=== PATIENT | male | born 1950 | race African-American/Black ===

== ENCOUNTER 2016-12-11 12:26 | Emergency (ER) | payer MEDICARE, OTHER ==
--- NOTE | 2016-12-11 14:12 | ER Document Report ---
ED Neck/Back Problem - General Chief Complaint: Back Pain Stated Complaint: BACK PAIN Time seen by provider: 14:08 Mode of Arrival: Ambulatory Information source: Patient Notes: 66-year-old male presents to ED for severe back pain. He states he has a history of back pain for 4-5 years but the pain that he is having now is worse denies ever had. He states that he took oxycodone at 11 and ibuprofen at 6 AM and Tylenol and has not had any relief at all. He denies any loss of bowel or bladder control. Denies loss of sensation to his perineum. Has a history of kidney disease diabetes high blood pressure CHF. Sleep apnea and cholesterol. TRAVEL OUTSIDE OF THE [place] IN LAST 30 DAYS: No - HPI Patient complains to provider of: Pain, Lower back Onset: Other - See above note Onset: Chronic - With a acute phase it's much worse than normal Timing: Worse Quality of pain: Sharp, Stabbing, Throbbing Severity: Severe Pain Level: 5 Recent injury: No Associated symptoms: Radiation to leg, Lower back pain. denies: Constipation, Incontinence, Like prior neck/back pain - Much worse than normal, Motor loss, Sensory loss Exacerbated by: Movement of trunk, Sitting position, Other - Laying flat Relieved by: Nothing Similar symptoms previously: Yes Recently seen / treated by doctor: - not this bad - Related Data Allergies/Adverse Reactions: No Known Allergies Allergy (Verified 12/11/16 12:37) Home Medications: Current Home Medications Iron Ps Cmplx/Vit B12/FA [Ferrex 150 Forte Capsule] 1 each PO DAILY 12/11/16 [ History] Oxycodone HCl/Acetaminophen [Percocet 5-325 mg Tablet] 1 tab PO ASDIR PRN [History] Past Medical History - General Information source: Patient - Social History Smoking Status: Never Smoker Cigarette use (# per day): No Chew tobacco use (# tins/day): No Smoking Education Provided: No Frequency of alcohol use: None Drug Abuse: None Lives with: Family Family History: Reviewed & Not Pertinent Patient has suicidal ideation: No Patient has homicidal ideation: No - Past Medical History Cardiac Medical History: Reports: Hx Congestive Heart Failure, Hx Hypercholesterolemia, Hx Hypertension Pulmonary Medical History: Reports: Hx Bronchitis, Hx Sleep Apnea EENT Medical History: Reports: None Neurological Medical History: Reports: None Endocrine Medical History: Reports: Hx Diabetes Mellitus Type 2 Renal/ Medical History: Reports: Hx Renal Insufficiency Malignancy Medical History: Reports None GI Medical History: Reports: Hx Gastroesophageal Reflux Disease, Hx Colonoscopy , Hx Endoscopy Musculoskeltal Medical History: Reports Hx Arthritis - RIGHT knee per x rays, Reports Hx Musculoskeletal Deformity - Back pain for 4-5 years Skin Medical History: Reports None Psychiatric Medical History: Reports: None Infectious Medical History: Reports: None Past Surgical History: Reports: Hx Orthopedic Surgery - right rotator cuff - Immunizations Hx Diphtheria, Pertussis, Tetanus Vaccination: Yes Hx Pneumococcal Vaccination: 11/05/13 Review of Systems - Review of Systems Constitutional: No symptoms reported EENT: No symptoms reported Cardiovascular: No symptoms reported Respiratory: No symptoms reported Gastrointestinal: No symptoms reported Genitourinary: No symptoms reported Male Genitourinary: No symptoms reported Musculoskeletal: Back pain, Muscle pain Skin: No symptoms reported Hematologic/Lymphatic: No symptoms reported Neurological/Psychological: No symptoms reported Physical Exam - Vital signs Vitals: Temp Pulse Resp BP Pulse Ox 98 F 94 22 H 129/83 H 95 12/11/16 12:37 12/11/16 12:37 12/11/16 12:37 12/11/16 12:37 12/11/16 12:37 Interpretation: Normal - General General appearance: Appears well, Alert - HEENT Head: Normocephalic, Atraumatic Eyes: Normal Pupils: PERRL - Respiratory Respiratory status: No respiratory distress Chest status: Nontender Breath sounds: Normal Chest palpation: Normal - Cardiovascular Rhythm: Regular Heart sounds: Normal auscultation Murmur: No - Abdominal Inspection: Normal Distension: No distension Bowel sounds: Normal Tenderness: Nontender Organomegaly: No organomegaly - Back Back: Normal, Tender, CVA tenderness - Bilateral, Vertebra tenderness. No: Deformity/step-off, Scars, Scoliosis, Wounds - Extremities General upper extremity: Normal inspection, Nontender, Normal color, Normal ROM , Normal temperature General lower extremity: Normal inspection, Nontender, Normal color, Normal ROM , Normal temperature, Normal weight bearing. No: Susan's sign - Neurological Neuro grossly intact: Yes Cognition: Normal Orientation: AAOx4 Elen Coma Scale Eye Opening: Spontaneous [place] Coma Scale Verbal: Oriented [place] Coma Scale Motor: Obeys Commands [place] Coma Scale Total: 15 Speech: Normal Motor strength normal: LUE, RUE, LLE, RLE Sensory: Normal - Psychological Associated symptoms: Normal affect, Normal mood - Skin Skin Temperature: Warm Skin Moisture: Dry Skin Color: Normal Course - Re-evaluation Re-evalutation: 12/11/16 22:[address] Narayanan before doing a CT of the abdomen pelvis as well as blood work due to patient's prior history of CHF diabetes and Renal insufficiency. CT was negative. Labs and CT discussed with Dr. Narayanan. Micah Narayanan MD stated he should have Toradol and Decadron for his pain and discharged home to follow-up with his primary doctor as well as his kidney doctor is hard doctor in his diabetes doctor. - Vital Signs Vital signs: Temp Pulse Resp BP Pulse Ox 97.7 F 93 20 137/89 H 89 L 12/11/16 17:55 12/11/16 17:55 12/11/16 17:55 12/11/16 17:55 12/11/16 17:55 - Laboratory Result Diagrams: 12/11/16 14:48 12/11/16 14:48 Laboratory results interpreted by me: 12/11/16 12/11/16 12/11/16 14:11 14:48 14:48 Hgb 11.8 L Hct 37.8 L MCH 24.9 L MCHC 31.2 L RDW 18.1 H Seg Neutrophils % 82.2 H Lymphocytes % 10.6 L Sodium 147.7 H BUN 30 H Creatinine 1.75 H Est GFR ( Amer) 47 L Est GFR (Non-Af Amer) 39 L Glucose 146 H Total Protein 6.2 L Urine Protein 100 H Urine Ascorbic Acid 20 H - Diagnostic Test Radiology reviewed: Image reviewed, Reports reviewed Discharge - Discharge Clinical Impression: Renal insufficiency Back pain Qualifiers: Back pain location: low back pain Chronicity: chronic Back pain laterality: bilateral Sciatica presence: with sciatica Sciatica laterality: bilateral sciatica Qualified Code(s): M54.42 - Lumbago with sciatica, left side Condition: Stable Disposition: HOME, SELF-CARE Instructions: Stretching Exercises for the Back ([facility]) Additional Instructions: LOW BACK PAIN: Three out of every four people will have an episode of disabling back pain during their lifetime. Most commonly the pain is due to straining of the muscles and ligaments in the low back. Usual treatment includes: (1) Rest on a firm surface. Avoid lying on your stomach. (2) Ice pack the painful area. After a few days, gentle heat may be used intermittently to relax the area, or ice packs can be continued. (3) Medication may be needed -- muscle relaxers and antiinflammatory medicines are commonly used. (4) As the back improves, exercises are prescribed to strengthen the back and abdominal muscles. Your doctor will advise you on the proper care for your back at each stage in your recovery. You may be better in a few days -- or healing may take several weeks. If new symptoms of a "herniated disc" (radiation of pain, numbness, or tingling down the back of the leg or weakness in the leg) occur, you should be re-examined. Further testing may be necessary. ICE PACKS: Apply ice packs frequently against the painful area. Many different schedules are recommended, such as "20 minutes on, 20 minutes off" or "one hour ice, two hours rest." If you need to work, you may need to go longer between ice treatments. You should plan to have the area ice packed AT LEAST one fourth of the time. The ice should be applied over the wrap, tape, or splint, or over a layer of cloth -- not directly against the skin. Some ice bags have a built-in cloth and can be put directly on the skin. WARM PACKS: After approximately two days, apply gentle heat (such as a heating pad or hot water bottle) for about 20 to 30 minutes about every two hours -- at least four times daily. Warmth and elevation will help you make a more rapid recovery , and will ease the pain considerably. Do not use HOT heat, and never apply heat for longer than 30 minutes. The continuous heat can invisibly damage skin and muscles -- even when no burn is seen on the surface. Damaged muscles can make you MORE sore. Toradol Injection You have been given an injection of ketorolac tromethamine (Toradol). This is an excellent, safe drug for pain control. It also has potent antiinflammatory action. You should have significant pain relief within about one hour. Toradol is not addicting and is non-sedating. It does not interfere with driving or work. Call or return if you develop itching, hives, shortness of breath, or rash. STEROID MEDICATION: You have been given an injection of medicine of the cortisone/steroid class. This medication is used to control inflammation or allergy. It is often continued as a pill for a short period of time, until the acute process subsides. There are usually no side effects from short-term use of cortisone-like medications. Some persons feel an increased sense of well-being and are not sleepy at bedtime. Long-term use of cortisone medications is best avoided, unless required for a severe condition. If your condition does not remit, or relapses after the course of corticosteroid medication, you should consult your physician. FOLLOW-UP CARE: If you have been referred to a physician for follow-up care, call the physician s office for an appointment as you were instructed or within the next two days. If you experience worsening or a significant change in your symptoms, notify the physician immediately or return to the Emergency Department at any time for re-evaluation. I discussed your labs and CT results with you and your . I have given you a written report of each of these. Please take these to your follow-up visits with your heart doctor, your kidney doctor, your primary doctor, and Dr. Hoang. please schedule a appointment with your primary doctor tomorrow. Forms: Elevated Blood Pressure Referrals: NIRALI SERRANO MD [ACTIVE STAFF] - Follow up as needed
[2016-12-11 14:34] LABS: APPEARANCE,URINE CLEAR; BILIRUBIN,URINE NEGATIVE (NEGATIVE); GLUCOSE, URINE NEGATIVE (NEGATIVE); KETONES,URINE NEGATIVE (NEGATIVE); LEUKOCYTE ESTERASE,URINE NEGATIVE (NEGATIVE); NITRITE,URINE NEGATIVE (NEGATIVE); PROTEIN,URINE 100 mg/dL (NEGATIVE); UROBILINOGEN,URINE NEGATIVE mg/dL (<2.0)
[2016-12-11 15:03] LABS: ABSOLUTE BASOPHILS # (AUTO) 0.1 10^3/uL (0.0-0.2); ABSOLUTE LYMPHOCYTES (AUTO) 0.9 10^3/uL (0.5-4.7); ABSOLUTE MONOCYTES (AUTO) 0.5 10^3/uL (0.1-1.4); ABSOLUTE NEUT (AUTO) 7.1 10^3/uL (1.7-8.2); BASOPHILS % (AUTO) 0.8 % (0-2); EOSINOPHILS % (AUTO) 0.4 % (0-6); HEMATOCRIT 37.8 % (37.9-51.0); HEMOGLOBIN 11.8 g/dL (13.5-17.0); HGB HCT DIFFERENCE -2.4; LYMPHOCYTES % (AUTO) 10.6 % (13-45); MEAN CORPUSCULAR HEMOGLOBIN 24.9 pg (27.0-33.4); MEAN CORPUSCULAR HGB CONC 31.2 g/dL (32.0-36.0); MEAN CORPUSCULAR VOLUME 80 fl (80-97); RED BLOOD COUNT 4.74 10^6/uL (4.35-5.55); RED CELL DISTRIBUTION WIDTH 18.1 % (11.5-14.0); SEGMENTED NEUTROPHILS % (AUTO) 82.2 % (42-78); WHITE BLOOD COUNT 8.7 10^3/uL (4.0-10.5)
[2016-12-11 15:21] LABS: ALANINE AMINOTRANSFERASE 42 U/L (21-72); ALBUMIN 3.8 g/dL (3.5-5.0); ALKALINE PHOSPHATASE 63 U/L (38-126); ANION GAP 12 (5-19); ASPARTATE AMINO TRANSFERASE 18 U/L (17-59); BILIRUBIN,DIRECT 0.2 mg/dL (0.0-0.4); BILIRUBIN,TOTAL 0.5 mg/dL (0.2-1.3); BLOOD UREA NITROGEN 30 mg/dL (7-20); CALCIUM 10.1 mg/dL (8.4-10.2); CARBON DIOXIDE 30 mmol/L (22-30); CHLORIDE 106 mmol/L (98-107); CREATININE RESULT 1.75 mg/dL (0.52-1.25); GLUCOSE 146 mg/dL (75-110); POTASSIUM 4.7 mmol/L (3.6-5.0); SODIUM 147.7 mmol/L (137-145); TOTAL PROTEIN 6.2 g/dL (6.3-8.2)
[2016-12-11] MEDS ORDERED: OXYCODONE-ACETAMINOPHEN 5-325 MG TABLET PO ONE (15:36)
[2016-12-11] MEDS ORDERED: KETOROLAC TROMETHAMINE INJ/PF 30 MG/1 ML SDV IM ONE (17:18)
[2016-12-11] MEDS ORDERED: DEXAMETHASONE SOD PHOS INJ 10 MG/1 ML VIAL IM ONE (17:18)
[2016-12-11 18:03] VITALS: BP 137/89
== END 2016-12-11 18:03 | disposition home or self-care (01) ==
LOC: ER 12:26
DX: G89.29 Other chronic pain (principal); M54.42 Lumbago with sciatica, left side; N28.9 Disorder of kidney and ureter, unspecified; I10 Essential (primary) hypertension; E11.9 Type 2 diabetes mellitus without complications; Z86.79 Personal history of other diseases of the circulatory system
CPT/HCPCS: 99284; 96372; 36415; 85025; 80053; 81001; 74176; J1885; A9270; J1100

== ENCOUNTER 2016-12-29 06:37 | Inpatient (IN) | payer MEDICARE, OTHER ==
[2016-12-29] MEDS ORDERED: NORMAL SALINE 1000 ML 200 ML IV ONE (07:07)
--- NOTE | 2016-12-29 07:16 | ER Document Report ---
ED General - General Information source: Patient TRAVEL OUTSIDE OF THE [place] IN LAST 30 DAYS: No - HPI Patient complains to provider of: Difficulty Breathing Onset: This morning Onset/Duration: Sudden, Persistent Associated symptoms: Other - Lightheaded, dry mouth, increased thirst <NINOSKAOUSMANE - Last Filed: 12/29/16 08:45> <CLIFFORD SALAZAR - Last Filed: 12/29/16 16:03> - General Chief Complaint: Respiratory Distress Stated Complaint: DIFFICULTY BREATHING Notes: Patient is a 66-year-old male presenting to the emergency department concerned of difficulty breathing onset this morning. Patient states that he was wearing his CPAP when he noticed he was having trouble breathing, so she took off his machine and cleaned it out, but the difficulty breathing persisted. Patient also notes that he is having increased thirst, dry mouth, and he became lightheaded. Patient's primary care physician is Dr. Cruz and his train controller is Dr. Dutton. (OUSMANE XIAO) This 66-year-old male patient with a history of cardiomyopathy, CHF, hyperlipidemia, hypertension, diabetes, and chronic low back pain reports he woke up this morning about 5:30 feeling like he couldn't breathe and his mouth feeling extremely dry. He does wear seat Pap at night and had it on. He reports he last urinated about 2:00 in the morning. He states he has been drinking and normal amount of fluids recently. His initial blood pressure was 84/62. His hemoglobin is 12.4, it was 11.8 most recently. His BUN is 36 and creatinine 2.13, these are also much higher than his baseline. His blood sugar is 379 he is not acidotic. His pulse ox is 100% on room air despite him claiming he has trouble breathing. He also has pain in his low back, but he reports this is a chronic thing that he takes Tylenol for. Palpating low back reproduces and exacerbates the low back pain. He did have a CT scan abdomen and pelvis to 3 weeks ago which did not show any aneurysms. Patient was initially gently hydrated with small boluses, but his blood pressure began dropping as low as the mid 50s systolic. This was changed to IV boluses. He became quite nauseous during this time, possibly due to lobe blood pressure and low perfusion pressure. After Zofran and into his third liter of fluid, his blood pressure is coming back up and he is feeling somewhat better. Lives at drip was ordered, but is being held at this time depending on how his pressure response to additional fluids. Due to his history of cardiomyopathy and congestive heart failure were concerned about overly hydrating the patient. (CLIFFORD SALAZAR) - Related Data Allergies/Adverse Reactions: No Known Allergies Allergy (Verified 12/29/16 06:40) Home Medications: Current Home Medications Sitagliptin Phos/Metformin HCl [Janumet 50-1,000 Mg Tablet] 1 each PO DAILY [History] Past Medical History - General Information source: Patient, [facility] Records - Social History Smoking Status: Never Smoker Family History: Reviewed & Not Pertinent Patient has suicidal ideation: No Patient has homicidal ideation: No - Past Medical History Cardiac Medical History: Reports: Hx Congestive Heart Failure, Hx Hypercholesterolemia, Hx Hypertension Pulmonary Medical History: Reports: Hx Bronchitis, Hx Sleep Apnea Endocrine Medical History: Reports: Hx Diabetes Mellitus Type 2 Renal/ Medical History: Reports: Hx Renal Insufficiency GI Medical History: Reports: Hx Gastroesophageal Reflux Disease, Hx Colonoscopy , Hx Endoscopy Musculoskeltal Medical History: Reports Hx Arthritis - RIGHT knee per x rays, Reports Hx Musculoskeletal Deformity - Back pain for 4-5 years Infectious Medical History: Past Surgical History: Reports: Hx Orthopedic Surgery - right rotator cuff - Immunizations Hx Diphtheria, Pertussis, Tetanus Vaccination: Yes Hx Pneumococcal Vaccination: 11/05/13 <OUSMANE XIAO - Last Filed: 12/29/16 08:45> Review of Systems - Review of Systems Constitutional: No symptoms reported EENT: See HPI, Other - Dry mouth, increased thirst Cardiovascular: See HPI, Lightheaded Respiratory: See HPI, Other - Difficulty breathing Gastrointestinal: No symptoms reported Genitourinary: No symptoms reported Male Genitourinary: No symptoms reported Musculoskeletal: No symptoms reported Skin: No symptoms reported Hematologic/Lymphatic: No symptoms reported Neurological/Psychological: No symptoms reported -: Yes All other systems reviewed and negative <OUSMANE XIAO - Last Filed: 12/29/16 08:45> Physical Exam - Vital signs Interpretation: Hypotensive - General General appearance: Alert - HEENT Head: Normocephalic, Atraumatic Eyes: Normal Pupils: PERRL Mucous membranes: Dry - Respiratory Respiratory status: No respiratory distress Chest status: Nontender Breath sounds: Normal Chest palpation: Normal - Cardiovascular Rhythm: Regular Heart sounds: Normal auscultation Murmur: No - Abdominal Inspection: Normal Distension: No distension Bowel sounds: Normal Tenderness: Nontender Organomegaly: No organomegaly - Back Back: Normal, Nontender - Extremities General upper extremity: Normal inspection, Nontender General lower extremity: Normal inspection, Nontender - Neurological Neuro grossly intact: Yes Cognition: Normal Orientation: AAOx4 Elen Coma Scale Eye Opening: Spontaneous [place] Coma Scale Verbal: Oriented [place] Coma Scale Motor: Obeys Commands [place] Coma Scale Total: 15 Speech: Normal - Psychological Associated symptoms: Normal affect, Normal mood - Skin Skin Temperature: Warm Skin Moisture: Dry Skin Color: Normal <OUSMANE XIAO - Last Filed: 12/29/16 08:45> Course - Laboratory Result Diagrams: 12/29/16 07:00 12/29/16 07:00 <OUSMANE XIAO - Last Filed: 12/29/16 08:45> - Laboratory Result Diagrams: 12/29/16 07:00 12/29/16 07:00 - Diagnostic Test Radiology reviewed: Image reviewed, Reports reviewed - Patient's chest x-ray is unremarkable showing chronic cardiomegaly without pulmonary vascular congestion today. CT scan shows a chronic left occipital arachnoid cyst with no acute changes. VQ scan of the lungs is normal. - EKG Interpretation by Me EKG shows normal: Sinus rhythm, [place], QRS Complexes. abnormal: Intervals - Borderline prolonged QT interval, ST-T Waves - Nonspecific diffuse T abnormalities Rate: Normal - 66 Rhythm: NSR [place]/QRS: LAHB/LAFB P Waves: LAE - Consults Dr. Valladares Time consulted: 15:30 Consulted provider: will come to ER <CLIFFORD SALAZAR - Last Filed: 12/29/16 16:03> - Re-evaluation Re-evalutation: 12/29/16 09:39 Patient's blood pressure never really responded to the normal saline 3 L. His pulse ox remained 100% on nasal O2. He is now complaining of a headache that started about 9:30 AM, the area of the headache is the left posterior parietal region, it is not tender to palpate. He is stating he does not feel right but he cannot specify what is wrong. 12/29/16 16:02 Patient was put on Levophed for several hours which got his blood pressure into the 1:15 range. After he returned from a negative VQ scan, Levophed was turned off and then he was reevaluated for admission. (CLIFFORD SALAZAR) - Vital Signs Vital signs: Temp Pulse Resp BP Pulse Ox 97.5 F 71 8 L 126/79 H 100 12/29/16 06:40 12/29/16 06:40 12/29/16 15:21 12/29/16 15:21 12/29/16 15:20 - Laboratory Laboratory results interpreted by me: 12/29/16 12/29/16 12/29/16 07:00 07:00 07:00 Hgb 12.4 L MCH 25.1 L MCHC 31.3 L RDW 17.2 H Plt Count 140 L D-Dimer 1.86 H Potassium 5.4 H BUN 36 H Creatinine 2.13 H Est GFR ( Amer) 38 L Est GFR (Non-Af Amer) 31 L Glucose 379 H Creatine Kinase 33 L Total Protein 6.0 L Urine Protein Urine Glucose (UA) Urine Ascorbic Acid 12/29/16 14:40 Hgb MCH MCHC RDW Plt Count D-Dimer Potassium BUN Creatinine Est GFR ( Amer) Est GFR (Non-Af Amer) Glucose Creatine Kinase Total Protein Urine Protein 100 H Urine Glucose (UA) 50 H Urine Ascorbic Acid 40 H Critical Care Note - Critical Care Note Total time excluding time spent on procedures (mins): 65 <CLIFFORD SALAZAR - Last Filed: 12/29/16 16:03> Discharge <OUSMANE XIAO - Last Filed: 12/29/16 08:45> - Discharge Admitting Provider: Hospitalist Unit Admitted: IMCU <CLIFFORD SALAZAR - Last Filed: 12/29/16 16:03> - Discharge Clinical Impression: Dehydration, Renal insufficiency Dyspnea Qualifiers: Dyspnea type: unspecified Qualified Code(s): R06.00 - Dyspnea, unspecified Hypotension Qualifiers: Hypotension type: unspecified hypotension type Qualified Code(s): I95.9 - Hypotension, unspecified Headache Qualifiers: Headache type: unspecified Headache chronicity pattern: acute headache Intractability: not intractable Qualified Code(s): R51 - Headache Condition: Good Referrals: RUFINA CRUZ MD [Primary Care Provider] - Follow up as needed Scribe Attestation: 12/29/16 12:36 I personally performed the services described in the documentation, reviewed and edited the documentation which was dictated to the scribe in my presence, and it accurately records my words and actions. (CLIFFORD SALAZAR) Scribe Documentation - Scribe Written by Scribe:: Ousmane Xiao 12/29/2016 0711 acting as scribe for :: Dell <OUSMANE XIAO - Last Filed: 12/29/16 08:45>
[2016-12-29 07:24] LABS: ABSOLUTE BASOPHILS # (AUTO) 0.1 10^3/uL (0.0-0.2); ABSOLUTE EOSINOPHILS # (AUTO) 0.1 10^3/uL (0.0-0.6); ABSOLUTE LYMPHOCYTES (AUTO) 1.5 10^3/uL (0.5-4.7); ABSOLUTE MONOCYTES (AUTO) 0.6 10^3/uL (0.1-1.4); BASOPHILS % (AUTO) 0.8 % (0-2); EOSINOPHILS % (AUTO) 0.8 % (0-6); HEMATOCRIT 39.6 % (37.9-51.0); HEMOGLOBIN 12.4 g/dL (13.5-17.0); HGB HCT DIFFERENCE -2.4; MEAN CORPUSCULAR HEMOGLOBIN 25.1 pg (27.0-33.4); MEAN CORPUSCULAR HGB CONC 31.3 g/dL (32.0-36.0); MEAN CORPUSCULAR VOLUME 80 fl (80-97); MONOCYTES % (AUTO) 8.7 % (3-13); RED BLOOD COUNT 4.95 10^6/uL (4.35-5.55); RED CELL DISTRIBUTION WIDTH 17.2 % (11.5-14.0); SEGMENTED NEUTROPHILS % (AUTO) 68.7 % (42-78); WHITE BLOOD COUNT 7.4 10^3/uL (4.0-10.5)
[2016-12-29 07:43] LABS: ALANINE AMINOTRANSFERASE 55 U/L (21-72); ALBUMIN 3.7 g/dL (3.5-5.0); ALKALINE PHOSPHATASE 72 U/L (38-126); ANION GAP 11 (5-19); ASPARTATE AMINO TRANSFERASE 25 U/L (17-59); BILIRUBIN,DIRECT 0.4 mg/dL (0.0-0.4); BILIRUBIN,TOTAL 0.8 mg/dL (0.2-1.3); BLOOD UREA NITROGEN 36 mg/dL (7-20); CALCIUM 9.7 mg/dL (8.4-10.2); CARBON DIOXIDE 29 mmol/L (22-30); CHLORIDE 100 mmol/L (98-107); CREATINE KINASE 33 U/L (55-170); CREATININE RESULT 2.13 mg/dL (0.52-1.25); GLUCOSE 379 mg/dL (75-110); MAGNESIUM 2.1 mg/dL (1.6-2.3); POTASSIUM 5.4 mmol/L (3.6-5.0); SODIUM 140.4 mmol/L (137-145)
[2016-12-29] MEDS ORDERED: ACETAMINOPHEN 325 MG TABLET PO ONE (07:43)
[2016-12-29 07:55] LABS: CREATINE KINASE MB 0.68 ng/mL (<4.55)
[2016-12-29 07:56] LABS: TROPONIN I 0.064 ng/mL
[2016-12-29] MEDS ORDERED: NORMAL SALINE 1000 ML 1,000 ML IV ONE (08:17)
[2016-12-29] MEDS ORDERED: ONDANSETRON HCL INJ/PF 4 MG/2 ML SDV IV ONE (08:26)
[2016-12-29] MEDS ORDERED: ONDANSETRON HCL INJ/PF 4 MG/2 ML SDV ONE (08:27)
[2016-12-29] MEDS ORDERED: INSULIN REG, HUMAN 100 UNIT/ML 3 ML VIAL (PYX) IV ONE (08:47)
[2016-12-29] MEDS ORDERED: NOREPINEPHRINE BITARTRATE INJ/PF 4 MG/4 ML SDV IV ONE (09:11)
[2016-12-29] MEDS: DEXTROSE 5%-WATER 250 ML with NOREPINEPHRINE BITARTRATE 4 MG IV PRN ×4 (09:35→14:50)
[2016-12-29] MEDS ORDERED: MORPHINE SULFATE 10 MG/ML INJ IV ONE ×2 (09:53→14:48)
--- NOTE | 2016-12-29 10:45 | EKG REPORT ---
SEVERITY:- ABNORMAL ECG - SINUS RHYTHM PROBABLE LEFT ATRIAL ABNORMALITY LEFT ANTERIOR FASCICULAR BLOCK BORDERLINE R WAVE PROGRESSION, ANTERIOR LEADS NONSPECIFIC T ABNORMALITIES, DIFFUSE LEADS BORDERLINE PROLONGED QT INTERVAL : Confirmed by: Dionicio Mckeon 29-Dec-2016 10:44:32
[2016-12-29 15:21] LABS: APPEARANCE,URINE CLOUDY; BILIRUBIN,URINE NEGATIVE (NEGATIVE); GLUCOSE, URINE 50 mg/dL (NEGATIVE); KETONES,URINE NEGATIVE (NEGATIVE); LEUKOCYTE ESTERASE,URINE NEGATIVE (NEGATIVE); NITRITE,URINE NEGATIVE (NEGATIVE); PROTEIN,URINE 100 mg/dL (NEGATIVE); UROBILINOGEN,URINE NEGATIVE mg/dL (<2.0)
[2016-12-29] MEDS ORDERED: OXYCODONE-ACETAMINOPHEN 5-325 MG TABLET PO PRN (15:56)
[2016-12-29] MEDS ORDERED: (PENDING PHARMACY ID) (Tizanidine Hcl [Zanaflex] 4 MG) PO PRN (15:56)
[2016-12-29] MEDS ORDERED: ONDANSETRON HCL INJ/PF 4 MG/2 ML SDV IV PRN (16:00)
[2016-12-29] MEDS ORDERED: ACETAMINOPHEN 325 MG TABLET PO PRN (16:00)
[2016-12-29] MEDS ORDERED: DEXTROSE 50%-WATER 25 GM/50 ML DISP.SYRIN IV PRN ×2 (16:32)
[2016-12-29] MEDS ORDERED: DEXTROSE 40% GEL 15 GM TUBE PO PRN ×2 (16:32)
[2016-12-29] MEDS ORDERED: GLUCAGON,HUMAN RECOMB 1 MG INJ IM PRN (16:32)
--- NOTE | 2016-12-29 16:46 | PDOC H&P ---
History of Present Illness Admission Date/PCP: RUFINA LOWRY MD Patient complains of: Shortness of breath History of Present Illness: BAM MORRISON is a 66 year old male, history of chronic congestive heart failure, systolic dysfunction, last ejection fraction of 20% about a year ago, 37% of MUGA scan, process to the hospital with shortness of breath upon waking up early this morning. The patient was in bed, wearing his CPAP, subsequently couldn't breathe. He denies chest pain at all. He does not remember whether he has nasal congestion at that time, nor any chest congestion. No chills or fever, no sore throat, cough. In the emergency room, blood pressure reportedly low, chest x-ray noted infiltrate, creatinine elevated, patient started on intravenous fluid boluses, and blood pressure remained low, he was placed on Levophed, blood pressure normalized. Patient was referred for admission. The patient's shortness of breath resolved. Past Medical History Cardiac Medical History: Reports: Congestive Heart Failure, Hyperlipidema, Hypertension Pulmonary Medical History: Reports: Bronchitis, Sleep Apnea Endocrine Medical History: Reports: Diabetes Mellitus Type 2 GI Medical History: Reports: Gastroesophageal Reflux Disease Musculoskeltal Medical History: Reports: Arthritis - RIGHT knee per x rays Hematology: Reports: Anemia Past Surgical History Past Surgical History: Reports: Orthopedic Surgery - right rotator cuff Social History Smoking Status: Never Smoker Frequency of Alcohol Use: None Hx Recreational Drug Use: No Drugs: None Hx Prescription Drug Abuse: No Family History Family History: DM, Hypertension Parental Family History Reviewed: Yes Children Family History Reviewed: Yes Sibling(s) Family History Reviewed.: Yes Medication/Allergy Home Medications: Atorvastatin Calcium [Lipitor 80 mg Tablet] 40 mg PO QHS 12/17/11 Cyanocobalamin/Folic Acid [B-12 1,000 Mcg Sub Tablet] 1 each SL DAILY #30 tab.subl 11/18/15 Furosemide [Lasix 40 mg Tablet] 40 mg PO BID #60 tablet 11/18/15 Losartan Potassium [Cozaar 25 mg Tablet] 25 mg PO Q12 #60 tablet 11/18/15 Cholecalciferol (Vitamin D3) [Vitamin D3] 1,000 unit PO BID 07/25/16 Glimepiride [Amaryl 4 mg Tablet] 2 mg PO DAILY PRN 07/25/16 Tizanidine HCl [Zanaflex] 4 mg PO TID PRN 07/25/16 Diltiazem HCl [Cardizem Cd 120 mg Capsule] 1 cap.sr PO DAILY #30 cap.sr Iron Ps Cmplx/Vit B12/FA [Ferrex 150 Forte Capsule] 1 each PO DAILY 12/11/16 Oxycodone HCl/Acetaminophen [Percocet 5-325 mg Tablet] 1 tab PO ASDIR PRN Sitagliptin Phos/Metformin HCl [Janumet 50-1,000 Mg Tablet] 1 each PO DAILY Allergies/Adverse Reactions: No Known Allergies Allergy (Verified 12/29/16 06:40) Review of Systems Constitutional: ABSENT: chills, fever(s), headache(s), weight gain, weight loss Eyes: ABSENT: visual disturbances Ears: ABSENT: hearing changes Nose, Mouth, and Throat: ABSENT: mouth pain, sore throat Cardiovascular: PRESENT: dyspnea on exertion - Chronic, edema - But chronic and not increasing, orthropnea - Intermittent. ABSENT: chest pain, palpitations Respiratory: PRESENT: cough - Occasional, dyspnea. ABSENT: hemoptysis, sputum Gastrointestinal: ABSENT: abdominal pain, constipation, diarrhea, hematemesis, hematochezia, melena, nausea, vomiting Genitourinary: ABSENT: dysuria, hematuria Musculoskeletal: ABSENT: joint swelling Integumentary: ABSENT: pruritus, rash, wounds Neurological: ABSENT: abnormal gait, abnormal speech, confusion, dizziness, focal weakness, syncope Psychiatric: ABSENT: anxiety, depression, homidical ideation, suicidal ideation Endocrine: ABSENT: cold intolerance, heat intolerance, polydipsia, polyuria Hematologic/Lymphatic: ABSENT: easy bleeding, easy bruising Physical Exam Vital Signs: Temp Pulse Resp BP Pulse Ox 97.5 F 71 8 L 126/79 H 100 12/29/16 06:40 12/29/16 06:40 12/29/16 15:21 12/29/16 15:21 12/29/16 15:20 Intake & Output 12/28/16 12/29/16 12/30/16 06:59 06:59 06:59 Weight 91.3 kg General appearance: PRESENT: no acute distress, cooperative, other - Overweight Head exam: PRESENT: atraumatic, normocephalic Eye exam: PRESENT: conjunctiva pink, EOMI, PERRLA. ABSENT: scleral icterus Ear exam: PRESENT: normal external ear exam Mouth exam: PRESENT: moist, neck supple, tongue midline Throat exam: ABSENT: post pharyngeal erythema, tonsillar erythema Neck exam: PRESENT: JVD. ABSENT: carotid bruit, lymphadenopathy, thyromegaly Respiratory exam: PRESENT: clear to auscultation shital - Anteriorly, rales - Posteriorly in the lower lung hernandez, unlabored. ABSENT: rhonchi, wheezes Cardiovascular exam: PRESENT: RRR, +S1, +S2. ABSENT: diastolic murmur, rubs, systolic murmur Pulses: PRESENT: normal dorsalis pedis pul Vascular exam: PRESENT: normal capillary refill GI/Abdominal exam: PRESENT: normal bowel sounds, soft. ABSENT: distended, guarding, mass, organolmegaly, rebound, tenderness Rectal exam: PRESENT: deferred Extremities exam: PRESENT: full ROM, +1 edema. ABSENT: calf tenderness, clubbing Neurological exam: PRESENT: alert, awake, oriented to person, oriented to place , oriented to time, oriented to situation Psychiatric exam: PRESENT: appropriate affect, normal mood. ABSENT: homicidal ideation, suicidal ideation Skin exam: PRESENT: dry, intact, warm. ABSENT: cyanosis, rash Results Laboratory Results: 12/29/16 07:00 12/29/16 07:00 12/29/16 12/29/16 12/29/16 07:00 07:00 14:40 WBC 7.4 RBC 4.95 Hgb 12.4 L Hct 39.6 MCV 80 MCH 25.1 L MCHC 31.3 L RDW 17.2 H Plt Count 140 L Seg Neutrophils % 68.7 Lymphocytes % 21.0 Monocytes % 8.7 Eosinophils % 0.8 Basophils % 0.8 Absolute Neutrophils 5.0 Absolute Lymphocytes 1.5 Absolute Monocytes 0.6 Absolute Eosinophils 0.1 Absolute Basophils 0.1 Sodium 140.4 Potassium 5.4 H Chloride 100 Carbon Dioxide 29 Anion Gap 11 BUN 36 H Creatinine 2.13 H Est GFR ( Amer) 38 L Est GFR (Non-Af Amer) 31 L Glucose 379 H Calcium 9.7 Magnesium 2.1 Total Bilirubin 0.8 AST 25 ALT 55 Alkaline Phosphatase 72 Total Protein 6.0 L Albumin 3.7 Urine Color MENA Urine Appearance CLOUDY Urine pH 5.0 Ur Specific [place] 1.020 Urine Protein 100 H Urine Glucose (UA) 50 H Urine Ketones NEGATIVE Urine Blood NEGATIVE Urine Nitrite NEGATIVE Ur Leukocyte Esterase NEGATIVE Urine WBC (Auto) 4 Urine RBC (Auto) 1 12/29/16 12/29/16 07:00 07:00 Creatine Kinase 33 L CK-MB (CK-2) 0.68 Troponin I 0.064 Impressions: Chest X-Ray 12/29/16 07:08 IMPRESSION: HEART ENLARGED WITHOUT FAILURE. NO OTHER SIGNIFICANT RADIOGRAPHIC FINDING IN THE CHEST. Head CT 12/29/16 09:55 IMPRESSION: Arachnoid cyst. No acute abnormality in the brain. Lung Scan-[facility] 12/29/16 11:42 IMPRESSION: NORMAL VENTILATION-PERFUSION LUNG SCAN. NEGATIVE FOR PULMONARY EMBOLI. Assessment & Plan - Diagnosis (1) Hypotension Qualifiers: Hypotension type: unspecified hypotension type Qualified Code(s): I95.9 - Hypotension, unspecified Is this a current diagnosis for this admission?: Yes (2) Paroxysmal nocturnal dyspnea Is this a current diagnosis for this admission?: Yes (3) Hyperkalemia Is this a current diagnosis for this admission?: Yes (4) Acute renal failure superimposed on stage 3 chronic kidney disease Is this a current diagnosis for this admission?: Yes (5) Chronic congestive heart failure Qualifiers: Congestive heart failure type: systolic Qualified Code(s): I50.22 - Chronic systolic (congestive) heart failure Is this a current diagnosis for this admission?: Yes (6) Diabetes mellitus type 2 in obese Is this a current diagnosis for this admission?: Yes (7) Anemia of chronic disease Is this a current diagnosis for this admission?: Yes (8) Obstructive sleep apnea Is this a current diagnosis for this admission?: Yes (9) Cardiomyopathy Qualifiers: Cardiomyopathy type: unspecified Qualified Code(s): I42.9 - Cardiomyopathy, unspecified Is this a current diagnosis for this admission?: Yes (10) Pulmonary hypertension Is this a current diagnosis for this admission?: Yes - Time Time Spent: 30 to 50 Minutes - Plan Summary Plan Summary: Patient will be admitted to observation. We will discontinue Levophed. Give intravenous Lasix. Recheck potassium. Decrease the dose of the ARB. We will consult cardiology. Obtain cardiac enzymes 3. Repeat echocardiogram to check ejection fraction. Recheck creatinine in the morning. Discontinue metformin. Put the patient on sliding scale insulin at this time.
[2016-12-29 17:12] LABS: POTASSIUM 5.3 mmol/L (3.6-5.0)
[2016-12-29] MEDS ORDERED: TIZANIDINE HCL 4 MG TABLET PO PRN (17:30)
[2016-12-29] MEDS ORDERED: SODIUM POLYSTYRENE SULFONATE 15 GM/60 ML PO ONE (18:30)
[2016-12-29] MEDS ORDERED: FUROSEMIDE INJ/PF 40 MG/4 ML SDV IV ONE (18:30)
[2016-12-29 20:13] LABS: CREATINE KINASE MB 1.16 ng/mL (<4.55)
[2016-12-29 20:18] LABS: TROPONIN I 0.181 ng/mL
--- NOTE | 2016-12-29 20:43 | PDOC CONSULTATION ---
Consultation Consult Date: 12/29/16 Attending physician:: JOSEY RAMOS Consult reason:: Congestive heart failure History of Present Illness Admission Date/PCP: 12/29/16 16:00 RUFINA LOWRY MD Patient complains of: Shortness of breath History of Present Illness: BAM MORRISON is a 66 year old male, history of chronic congestive heart failure, systolic dysfunction, last ejection fraction of 20% about a year ago, 37% of MUGA scan, process to the hospital with shortness of breath upon waking up early this morning. The patient was in bed, wearing his CPAP, subsequently couldn't breathe. He denies chest pain at all. He does not remember whether he has nasal congestion at that time, nor any chest congestion. No chills or fever, no sore throat, cough. In the emergency room, blood pressure reportedly low, chest x-ray noted infiltrate, creatinine elevated, patient started on intravenous fluid boluses, and blood pressure remained low, he was placed on Levophed, blood pressure normalized. Patient was referred for admission. The patient's shortness of breath resolved. Past Medical History Cardiac Medical History: Reports: Congestive Heart Failure, Hyperlipidema, Hypertension Pulmonary Medical History: Reports: Bronchitis, Sleep Apnea Endocrine Medical History: Reports: Diabetes Mellitus Type 2 GI Medical History: Reports: Gastroesophageal Reflux Disease Musculoskeltal Medical History: Reports: Arthritis - RIGHT knee per x rays Hematology: Reports: Anemia Past Surgical History Past Surgical History: Reports: Orthopedic Surgery - right rotator cuff Social History Smoking Status: Never Smoker Frequency of Alcohol Use: None Hx Recreational Drug Use: No Drugs: None Hx Prescription Drug Abuse: No - Advance Directive Resuscitation Status: Full Code Family History Family History: Reviewed & Not Pertinent, DM, Hypertension Parental Family History Reviewed: Yes Children Family History Reviewed: Yes Sibling(s) Family History Reviewed.: Yes Medication/Allergy Home Medications: Atorvastatin Calcium [Lipitor 80 mg Tablet] 40 mg PO QHS 12/17/11 Cyanocobalamin/Folic Acid [B-12 1,000 Mcg Sub Tablet] 1 each SL DAILY #30 tab.subl 11/18/15 Furosemide [Lasix 40 mg Tablet] 40 mg PO BID #60 tablet 11/18/15 Losartan Potassium [Cozaar 25 mg Tablet] 25 mg PO Q12 #60 tablet 11/18/15 Cholecalciferol (Vitamin D3) [Vitamin D3] 1,000 unit PO BID 07/25/16 Glimepiride [Amaryl 4 mg Tablet] 2 mg PO DAILY PRN 07/25/16 Tizanidine HCl [Zanaflex] 4 mg PO TID PRN 07/25/16 Diltiazem HCl [Cardizem Cd 120 mg Capsule] 1 cap.sr PO DAILY #30 cap.sr Iron Ps Cmplx/Vit B12/FA [Ferrex 150 Forte Capsule] 1 each PO DAILY 12/11/16 Oxycodone HCl/Acetaminophen [Percocet 5-325 mg Tablet] 1 tab PO ASDIR PRN Sitagliptin Phos/Metformin HCl [Janumet 50-1,000 Mg Tablet] 1 each PO DAILY Allergies/Adverse Reactions: No Known Allergies Allergy (Verified 12/29/16 06:40) Physical Exam Vital Signs: Temp Pulse Resp BP Pulse Ox 97.6 F 86 22 H 106/73 100 12/29/16 19:32 12/29/16 19:32 12/29/16 19:32 12/29/16 19:32 12/29/16 19:32 Exam: GENERAL: well-nourished and in no acute distress. Alert and oriented x3 HEAD: Atraumatic, normocephalic. EYES: Pupils equal round and reactive to light, extraocular movements intact, sclera anicteric, conjunctiva are normal. ENT: TMs normal, nares patent, oropharynx clear without exudates. Moist mucous membranes. No oral ulcerations or bleeding gums noted NECK: supple without lymphadenopathy. Trachea is central. No cervical or axillary lymphadenopathy noted. Carotids are 2+, JVD 14 CM WITH CV WAVES LUNGS: Respiration seems nonlabored, no significant accessory muscle action noted. Bibasal a fine crackles noted. Slight right basal dullness noted. CHEST: Palpation of the chest wall shows no significant chest wall tenderness. No other significant abnormalities noted. HEART: [place] [employer], No PSH, 1/6 [place] aortic area, 1/6 gaines systolic murmur mitral area, no rubs, S3 noted. ABDOMEN: Soft, no significant tenderness appreciated, normoactive bowel sounds. No guarding, no rebound. No rigidity noted . No masses appreciated. EXTREMITIES: Pedal pulses are 1-2+, no calf tenderness noted. No clubbing or cyanosis.1+ pedal edema noted NEUROLOGICAL: Focused neurological exam showed no significant neurologic deficit. Normal speech, no focal weakness appreciated. PSYCH: Normal mood, normal affect. Judgment and insight within normal limits. SKIN: No significant ecchymosis, rash, ulcerations or signs of pruritus noted. MUSCULOSKELETAL EXAM: No significant joint swelling noted. Results Laboratory Results: 12/29/16 16:44 12/29/16 12/29/16 16:44 16:44 Potassium 5.3 H Free T4 1.22 12/29/16 12/29/16 16:44 19:41 Creatine Kinase 47 L CK-MB (CK-2) 1.16 Troponin I 0.181 EKG Comments: Sinus rhythm, minor nonspecific T-wave inversions noted. Impressions: Chest X-Ray 12/29/16 07:08 IMPRESSION: HEART ENLARGED WITHOUT FAILURE. NO OTHER SIGNIFICANT RADIOGRAPHIC FINDING IN THE CHEST. Head CT 12/29/16 09:55 IMPRESSION: Arachnoid cyst. No acute abnormality in the brain. Lung Scan-[facility] 12/29/16 11:42 IMPRESSION: NORMAL VENTILATION-PERFUSION LUNG SCAN. NEGATIVE FOR PULMONARY EMBOLI. Assessment & Plan - Diagnosis (1) Acute on chronic congestive heart failure Qualifiers: Congestive heart failure type: systolic Qualified Code(s): I50.23 - Acute on chronic systolic (congestive) heart failure Is this a current diagnosis for this admission?: Yes (2) Cardiomyopathy Qualifiers: Cardiomyopathy type: unspecified Qualified Code(s): I42.9 - Cardiomyopathy, unspecified Is this a current diagnosis for this admission?: Yes (3) Diabetes mellitus type 2 in obese Is this a current diagnosis for this admission?: Yes (4) Hypotension Qualifiers: Hypotension type: unspecified hypotension type Qualified Code(s): I95.9 - Hypotension, unspecified Is this a current diagnosis for this admission?: Yes (5) Obstructive sleep apnea Is this a current diagnosis for this admission?: Yes (6) Peripheral edema Is this a current diagnosis for this admission?: Yes - Notes Notes: Acute on chronic systolic heart failure: Patient has sudden onset shortness of breath. Pulmonary embolism ruled out. Most likely related to acute CHF, possibly could be precipitated by dysrhythmia or volume overload. Patient to be monitored. Agree with IV Lasix. Patient has significant renal dysfunction which decreases our option. Recommend hydralazine nitrate combination. Cardiomyopathy: Previous echocardiogram shows significantly reduced LVEF at 20% . Patient should be considered for prophylactic defibrillator therapy. Possibly Patient EF has improved. Will repeat a 2-D echo. If echo shows depressed LVEF, will consider referral for defibrillator placement. Hypotension: Exact etiology not clear but could be related to severe systolic dysfunction. Recommend Midodrin therapy if needed. Obstructive sleep apnea: Patient to continue with nightly CPAP/bilevel therapy. Peripheral ana continue diuretic therapy. This is most likely related to CHF. Positive troponin I: Patient has normal CK-MB, no significant EKG changes and is free of any chest pain during this admission therefore most likely related to acute CHF. Patient does not give any history of prior heart catheterization. Will try obtain previous records. - Time Time Spent: 30 to 50 Minutes - CODE STATUS was discussed, patient remains full code. Surrogate decision-maker patient's . Multiple medical problems were addressed.More than 50% of the time spent coordinating care, discussing management plans with involved caregivers. Management plans discussed with involved personnels. Medical decision making was of moderate to high complexity , patient's has multiple severe comorbidities.
[2016-12-29] MEDS: OXYCODONE-ACETAMINOPHEN 5-325 MG TABLET PO PRN (21:17)
[2016-12-29] MEDS: ATORVASTATIN CALCIUM 40 MG TABLET PO SCH (21:17)
[2016-12-29] MEDS: RANOLAZINE 500 MG TAB.SR.12H PO SCH (21:17)
[2016-12-29] MEDS: HEPARIN SOD (PORCINE) 5,000 UNIT/ML 1 ML SYRINGE SUBCUT SCH (21:19)
--- NOTE | 2016-12-29 21:37 | EKG REPORT ---
SEVERITY:- ABNORMAL ECG - SINUS RHYTHM PROBABLE LEFT ATRIAL ABNORMALITY LEFT ANTERIOR FASCICULAR BLOCK BORDERLINE R WAVE PROGRESSION, ANTERIOR LEADS : Confirmed by: Dionicio Mckeon 29-Dec-2016 21:37:06
--- NOTE | 2016-12-29 21:37 | EKG REPORT ---
SEVERITY:- ABNORMAL ECG - SINUS RHYTHM PROBABLE LEFT ATRIAL ABNORMALITY LEFT ANTERIOR FASCICULAR BLOCK BORDERLINE R WAVE PROGRESSION, ANTERIOR LEADS NONSPECIFIC T ABNORMALITIES, LATERAL LEADS : Confirmed by: Dionicio Mckeon 29-Dec-2016 21:35:55
[2016-12-29] MEDS ORDERED: LOSARTAN POTASSIUM 25 MG TABLET PO SCH (22:00)
[2016-12-29] MEDS ORDERED: ATORVASTATIN CALCIUM 80 MG TABLET PO SCH (22:00)
[2016-12-29] MEDS ORDERED: FUROSEMIDE INJ/PF 40 MG/4 ML SDV IV SCH (22:00)
[2016-12-29] MEDS: INSULIN REG, HUMAN 100 UNIT/ML 3 ML VIAL (PYX) SUBCUT PRN (23:25)
[2016-12-30 05:18] LABS: CALCIUM 8.6 mg/dL (8.4-10.2); CARBON DIOXIDE 24 mmol/L (22-30); MAGNESIUM 2.1 mg/dL (1.6-2.3)
[2016-12-30 05:35] LABS: ANION GAP 10 (5-19); BLOOD UREA NITROGEN 38 mg/dL (7-20); CHLORIDE 108 mmol/L (98-107); CREATININE RESULT 1.99 mg/dL (0.52-1.25); GLUCOSE 201 mg/dL (75-110); SODIUM 142.4 mmol/L (137-145)
[2016-12-30 05:39] LABS: POTASSIUM 4.1 mmol/L (3.6-5.0)
[2016-12-30] MEDS: LANSOPRAZOLE 30 MG TAB.RAP.DR PO SCH (05:52)
[2016-12-30] MEDS: HEPARIN SOD (PORCINE) 5,000 UNIT/ML 1 ML SYRINGE SUBCUT SCH ×3 (05:53→22:46)
[2016-12-30] MEDS: OXYCODONE-ACETAMINOPHEN 5-325 MG TABLET PO PRN (07:52)
[2016-12-30] MEDS: INSULIN REG, HUMAN 100 UNIT/ML 3 ML VIAL (PYX) SUBCUT PRN ×4 (08:11→22:45)
--- NOTE | 2016-12-30 08:33 | Physician Advisory Note ---
Physician Advisor ProgressNote .: [facility] I have reviewed the medical record for this patient. Physician Advisor Statement: Nice documentation of ARF & chronic systolic HF. Nice documentation by sample maker hand of CHF specifics. Possible documentation opportunities if attending agrees: 1. " shock" (cardiogenic? hypovolemic?) 2. "Anemia of Chronic Kidney Dz with Chronic Kidney Dz stage 3-4 " [need to specify the etiology of the ACD] 3. ? - "Acute on Chronic systolic CHF" 4. ? - "Acute ischemic heart dz", or "acute NSTEMI", or "unstable angina" or " angina due to CAD" [dyspnea/nausea as anginal equivalent? EKG/trop I changes significant enough?] 5. "Medical Necessity" - if this Medicare pt requires a 2nd MN of hospital care for clinical reasons, as expected by this reviewer, please document reasons /concerns & consider change to Inpt status as per Medicare's 2MN Rule. May use any points below under "status" with which attending agrees. As always, if concerned about any unstable VS or abnormal labs, please comment on them - what bad things they might indicate, why they concern you - & note what doing about them. Please also document each day the potential clinical problems you are concerned could occur if pt not kept in hospital for tx at this time. 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 Sats WNL initially. WBC 7.4, Hgb 12.4, plts 140, K5.4, Cr 2.13 ( worse than before), CXR w/CMG but no vasc congestion seen. D-dimer 1.86, V/Q ok , trop 0.064 initially (then 0.181, 0.175), BNP 7620. ED dr gave repeated IVF boluses, then Levophed gtt, after which SOB resolved. Attending ordered d/c Levophed, IV Lasix now & daily, serial cardiac enzymes, ECHO, Cardiol consult, tele, orthostatics, daily wts, 2L O2 w/continuous pulse ox monitoring, re-ck labs, decreased dose ARB, d/c'd metformin, continued diltiazem. [employer] added Ranexa. Status: Pt arrived w/shock requiring pressor tx after 3L IVF insufficient to restore adequate perfusing pressure. This wasn't just a routine CHF exacerbation that had a good chance of recovery after overnight tx. This pt was clinically hypoperfusing, yet also clinically in acute CHF - tx to help support BP can worsen the CHF, & tx of the CHF could worsen the BP. Also, the tx of the acute CHF can worsen the ARF. Needs ECHO eval of EF, adjustments of meds w/close monitoring of response. Pt already w/dyspnea, and episodes of hypoxemia the 1st PM which could worsen acutely with fluid shifts of above tx.s. Pt orthostatic already by HR on first night, with continued IV diuretic use planned putting pt at risk for worsening of orthostasis with risk for falls/ fx.s. For this, pt may need midodrine tx, although response to that will need close monitoring for exacerbation of underlying HTN & for effects on CHF with such decreased EF. Pt may need prompt AICD placement depending on how low the EF is now. WIth the abnormal trop I's & EKGs, attending may be concerned for acute ischemia of the heart related to the severely low BPs initially. Pt remaining tachycardic on 1st PM, & borderline tachycardic this AM so far, with tachypnea & continued hypotension (though not shock anymore) this AM. Ranexa has been added, to treat angina, but will need close monitoring initially given its risks for causing worsening hypotension, bradycardia, renal failure, and potential interactions with diltiazem. Not stabilized for safe d/c yet today. If attending agrees that continued tx & monitoring in inpatient hospital setting medically reasonable & necessary to protect pt's health, safety, & medical condition, pt appropriate for Inpt status. Thanks for your help with documentation accuracy/specificity improvement! Yomaira Barbosa MD [facility] Physician Advisor, Fellow of Hospital Medicine
[2016-12-30] MEDS: FUROSEMIDE INJ/PF 40 MG/4 ML SDV IV SCH (09:30)
[2016-12-30] MEDS: ASPIRIN 325 MG TABLET, ENT COATED PO SCH (09:31)
[2016-12-30] MEDS: DOCUSATE SODIUM 100 MG CAPSULE PO SCH (09:32)
[2016-12-30] MEDS ORDERED: DILTIAZEM HCL 120 MG CAP.SR.24H PO SCH (10:00)
[2016-12-30] MEDS: LOSARTAN POTASSIUM 25 MG TABLET PO SCH (10:58)
--- NOTE | 2016-12-30 11:10 | XCELERA REPORT ---
[address] [address] Transthoracic Echocardiogram Report Name: BAM MORRISON Age: 66 yrs Gender: Male : 1950 Patient Status: Inpatient Patient Location: [id number]\319\S\A Study Date: 12/30/2016 08:17 AM Height: 71 in Weight: 201 lb BSA: 2.1 m2 Procedure: A complete two-dimensional transthoracic echocardiogram was performed (2D, M-mode, spectral and color flow Doppler). The study was technically difficult with many images being suboptimal in quality. Reason For Study: CHF Ordering Physician: JOSEY RAMOS Performed By: Ester Chicas Interpretation Summary The Ejection Fraction estimate is 20-25% Left ventricular systolic function is severely reduced. LV diastolic function could not be adequately assessed. There is normal left ventricular wall thickness. The left ventricle is mildly dilated. There is severe global hypokinesis of the left ventricle. The right atrium is borderline dilated. The left atrium is borderline dilated. Interarterial septum not well visualized and not well dopplered. Cannot comment on ASD/PFO presence. There is no mitral valve stenosis. There is a mild amount of mitral regurgitation There is no aortic valve stenosis No aortic regurgitation is present. There is a mild amount of tricuspid regurgitation There is moderate pulmonary hypertension by echo Right ventricular systolic pressure is estimated to be elevated at 50- 60mmHg. The aortic root is not well visualized but is probably normal size. The inferior vena cava appeared normal and decreased < 50% with respiration (RAP 10-15 mmHg) There is no pericardial effusion. MMode/2D Measurements \T\ Calculations RVDd: 3.1 cm LVIDd: 6.1 cm FS: 10.5 % Ao root diam: 2.4 cm IVSd: 0.67 cm LVIDs: 5.5 cm EDV(Teich): 188.6 ml LVPWd: 0.74 cmESV(Teich): 146.3 mlAo root area: 4.7 cm2 EF(Teich): 22.4 % LA dimension: 3.7 cm LVOT diam: 2.0 cm LVOT area: 3.2 cm2 Doppler Measurements \T\ Calculations MV E max ellie: MV P1/2t max ellie: Ao V2 max: LV V1 max P.9 cm/sec 87.9 cm/sec 83.1 cm/sec 1.2 mmHg MV P1/2t: 65.3 msec Ao max PG: LV V1 max: MVA(P1/2t): 3.4 cm2 2.8 mmHg 53.8 cm/sec MV dec slope: VY(V,D): 2.1 cm2 393.8 cm/sec2 PA V2 max: PI end-d ellie: TR max ellie: 51.8 cm/sec 215.8 cm/sec 331.2 cm/sec PA max PG: TR max P.1 mmHg 43.9 mmHg Left Ventricle The left ventricle is mildly dilated. There is normal left ventricular wall thickness. Left ventricular systolic function is severely reduced. The Ejection Fraction estimate is 20-25%. LV diastolic function could not be adequately assessed. There is severe global hypokinesis of the left ventricle. Right Ventricle The right ventricle is mildly dilated. There is normal right ventricular wall thickness. The right ventricular systolic function is mild to moderately reduced. Atria The right atrium is borderline dilated. The left atrium is borderline dilated. Interarterial septum not well visualized and not well dopplered. Cannot comment on ASD/PFO presence. Mitral Valve The mitral valve leaflets are sclerotic, but show no functional abnormalities. There is no mitral valve stenosis. There is a mild amount of mitral regurgitation. Aortic Valve The aortic valve is grossly normal. There is no aortic valve stenosis. No aortic regurgitation is present. Tricuspid Valve The tricuspid valve is not well visualized secondary to technical limitations. There is no tricuspid stenosis. There is a mild amount of tricuspid regurgitation. There is moderate pulmonary hypertension by echo. Right ventricular systolic pressure is estimated to be elevated at 50- 60mmHg. Pulmonic Valve The pulmonic valve is not well visualized. Great Vessels The aortic root is not well visualized but is probably normal size. The inferior vena cava appeared normal and decreased < 50% with respiration (RAP 10-15 mmHg). Effusions There is no pericardial effusion. : JOSEY RAMOS > Dionicio Mckeon
--- NOTE | 2016-12-30 11:19 | EKG REPORT ---
SEVERITY:- ABNORMAL ECG - SINUS RHYTHM PROBABLE LEFT ATRIAL ABNORMALITY LEFT ANTERIOR FASCICULAR BLOCK BORDERLINE R WAVE PROGRESSION, ANTERIOR LEADS NONSPECIFIC T ABNORMALITIES, LATERAL LEADS : Confirmed by: Dionicio Mckeon 30-Dec-2016 11:18:52
[2016-12-30] MEDS: DILTIAZEM HCL 120 MG CAP.SR.24H PO SCH (14:04)
[2016-12-30] MEDS: RANOLAZINE 500 MG TAB.SR.12H PO SCH ×2 (14:04→22:44)
--- NOTE | 2016-12-30 14:54 | PDOC TRANSFER SUMMARY ---
General Admission Date/PCP: 12/30/16 13:38 RUFINA LOWRY MD Transfer Date: 12/30/16 Accepting Facility: [facility] Accepting Physician: Dr. Nito Reid Resuscitation Status: Full Code - Transfer Diagnosis (1) Non-STEMI (non-ST elevated myocardial infarction) Is this a current diagnosis for this admission?: YesDiagnosis Summary: The patient did not have any chest pain but did presented with acute shortness of breath possibly an anginal equivalent. His cardiac enzymes showed an increase in troponin consistent with an acute non-STEMI. He has known congestive heart failure with an ejection fraction of 20% on echocardiogram. He reports that he is never had a cardiac catheterization previously. This may be related to his chronic renal failure although he is uncertain. (2) Acute on chronic congestive heart failure Is this a current diagnosis for this admission?: YesDiagnosis Summary: Patient has acute on chronic systolic congestive heart failure. The patient presented with acute onset of shortness of breath. This has improved with IV Lasix. The patient had a repeat echocardiogram showed an ejection fraction of 20%. It is recommended the patient be evaluated for an AICD. I discussed the case with [facility] who graciously agrees to accept the patient in transfer. (3) Acute renal failure superimposed on stage 3 chronic kidney disease Is this a current diagnosis for this admission?: YesDiagnosis Summary: We'll continue to monitor closely as we are giving IV diuretics for treating his congestive heart failure. (4) Anemia of chronic disease Is this a current diagnosis for this admission?: Yes (5) Diabetes mellitus type 2 in obese Is this a current diagnosis for this admission?: Yes (6) Obstructive sleep apnea Is this a current diagnosis for this admission?: Yes (7) Pulmonary hypertension Is this a current diagnosis for this admission?: Yes - Transfer Medications Home Medications: Atorvastatin Calcium [Lipitor 80 mg Tablet] 40 mg PO QHS 12/17/11 Cholecalciferol (Vitamin D3) [Vitamin D3] 1,000 unit PO BID 07/25/16 Glimepiride [Amaryl 4 mg Tablet] 2 mg PO DAILY PRN 07/25/16 Tizanidine HCl [Zanaflex] 4 mg PO TID PRN 07/25/16 Iron Ps Cmplx/Vit B12/FA [Ferrex 150 Forte Capsule] 1 each PO DAILY 12/11/16 Oxycodone HCl/Acetaminophen [Percocet 5-325 mg Tablet] 1 tab PO ASDIR PRN Sitagliptin Phos/Metformin HCl [Janumet 50-1,000 Mg Tablet] 1 each PO DAILY Transfer Medications: Current Medications Acetaminophen (Tylenol 325 Mg Tablet) 650 mg PO Q4HP PRN PRN Reason: pain or temp greater than 101F Stop: 01/28/17 15:59 Aspirin (Ecotrin 325 Mg Ec Tablet) 325 mg PO DAILY BEE Stop: 01/29/17 09:59 Last Admin: 12/30/16 09:31 Dose: 325 mg Atorvastatin Calcium (Lipitor 40 Mg Tablet) 40 mg PO QHS BEE Stop: 01/28/17 21:59 Last Admin: 12/29/16 21:17 Dose: 40 mg Dextrose (Dextrose Inj 50% Syringe (25 Gm/50 Ml)) 12.5 gm IV PRN PRN; Protocol PRN Reason: FOR BG 50-69 IN ALERT PATIENT Stop: 01/28/17 16:31 Dextrose (Dextrose Inj 50% Syringe (25 Gm/50 Ml)) 25 gm IV PRN PRN PRN Reason: Protocol Stop: 01/28/17 16:31 Diltiazem HCl (Cardizem Cd 120 Mg Capsule) 120 mg PO DAILY BEE Stop: 01/29/17 09:59 Last Admin: 12/30/16 14:04 Dose: Not Given Docusate Sodium (Colace 100 Mg Capsule) 100 mg PO DAILY BEE Stop: 01/29/17 09:59 Last Admin: 12/30/16 09:32 Dose: 100 mg Furosemide (Lasix Inj/Pf 40 Mg/4 Ml Sdv) 40 mg IV DAILY BEE Stop: 01/29/17 09:59 Last Admin: 12/30/16 09:30 Dose: 40 mg Glucagon (Glucagen Inj 1 Mg Vial) 1 mg IM PRN PRN; Protocol PRN Reason: Evaluate for BG < 70 Stop: 01/28/17 16:31 Glucose (Glutose 40% Gel 15 Gm Tube) 15 gm PO PRN PRN; Protocol PRN Reason: FOR BG 50-69 IN ALERT PATIENT Stop: 01/28/17 16:31 Glucose (Glutose 40% Gel 15 Gm Tube) 30 gm PO PRN PRN; Protocol PRN Reason: FOR BG < 50 IN ALERT PATIENT Stop: 01/28/17 16:31 Heparin Sodium (Porcine) (Heparin Inj 5,000 Units/Ml 1 Ml Syringe) 5,000 unit SUBCUT Q8 BEE Stop: 01/28/17 21:59 Last Admin: 12/30/16 14:06 Dose: 5,000 unit Insulin Human Regular (Humulin R (Pyxis) Insulin 100 Unit/Ml 3ml) 0 - 12 unit SUBCUT ACHSP PRN PRN Reason: Protocol Stop: 01/28/17 16:31 Last Admin: 12/30/16 11:04 Dose: 6 unit Lansoprazole (Prevacid 30 Mg Odt Tablet) 30 mg PO Q6AM BEE Stop: 01/29/17 05:59 Last Admin: 12/30/16 05:52 Dose: 30 mg Losartan Potassium (Cozaar 25 Mg Tablet) 25 mg PO DAILY BEE Stop: 01/29/17 09:59 Last Admin: 12/30/16 10:58 Dose: 25 mg Metoprolol Tartrate (Lopressor 25 Mg Tablet) 12.5 mg PO Q12 BEE Stop: 01/29/17 21:59 Ondansetron HCl (Zofran Inj/Pf 4 Mg/2 Ml Sdv) 4 mg IV Q6HP PRN PRN Reason: nausea/vomiting Stop: 01/28/17 15:59 Oxycodone/Acetaminophen (Percocet 5-325 Mg Tablet) 1 tab PO BIDP PRN PRN Reason: FOR BACK PAIN Stop: 01/05/17 17:29 Last Admin: 12/30/16 07:52 Dose: 1 tab Ranolazine (Ranexa 500 Mg Tab.Sr) 500 mg PO Q12 BEE Stop: 01/28/17 21:59 Last Admin: 12/30/16 14:04 Dose: Not Given Sodium Chloride (Saline Flush 2.5 Ml Monoject Prefil Syrin) 2.5 ml IV Q8 BEE Stop: 01/28/17 21:59 Last Admin: 12/30/16 14:07 Dose: 2.5 ml Tizanidine HCl (Zanaflex 4 Mg Tablet) 4 mg PO TIDP PRN Stop: 01/28/17 17:29 Last Admin: 12/29/16 23:09 Dose: 4 mg - Allergies Allergies/Adverse Reactions: No Known Allergies Allergy (Verified 12/29/16 06:40) - Diet/Activity Discharge Diet: Cardiac, Diabetic Hospital Course Hospital Course: Patient presented with acute onset shortness of breath. Patient does have a history of chronic systolic congestive heart failure. She felt that he had acute on chronic systolic congestive heart failure. He did not however have any chest pain. Serial cardiac enzymes were drawn and it did show an increase consistent with an acute non-STEMI. Patient was seen by cardiology. Cardiology recommended the patient be evaluated for defibrillator placement given his ejection fraction 20%. The patient has been at [facility] previously and requested to go to [facility]. Dr. Nito Reid of cardiology has agreed to accept the patient in transfer. I asked the patient if he has had a heart catheterization in the past and he is not aware that he's ever had a heart catheterization. He has problems with chronic renal failure this may be the reason that he has not had a cardiac catheter previously. Other medical problems were stable during this hospitalization. Physical Exam Vital Signs: Temp Pulse Resp BP Pulse Ox 97.8 F 86 21 H 105/77 98 12/30/16 11:50 12/30/16 14:00 12/30/16 11:50 12/30/16 11:50 12/30/16 12:00 General appearance: PRESENT: no acute distress Eye exam: PRESENT: conjunctiva pink. ABSENT: scleral icterus Ear exam: PRESENT: normal external ear exam Mouth exam: PRESENT: moist, tongue midline Neck exam: ABSENT: JVD Respiratory exam: PRESENT: rales - Few bibasilar rales. ABSENT: rhonchi, wheezes Cardiovascular exam: PRESENT: RRR. ABSENT: diastolic murmur, rubs, systolic murmur GI/Abdominal exam: PRESENT: normal bowel sounds, soft. ABSENT: distended, guarding, mass, organolmegaly, rebound, tenderness Extremities exam: PRESENT: pedal edema - Trace pedal edema.. ABSENT: calf tenderness, clubbing Neurological exam: PRESENT: alert, awake, oriented to person, oriented to place , oriented to time, oriented to situation, CN II-XII grossly intact. ABSENT: motor sensory deficit Psychiatric exam: PRESENT: appropriate affect Skin exam: PRESENT: dry, intact, warm. ABSENT: cyanosis, rash Results Impressions: Chest X-Ray 12/29/16 07:08 IMPRESSION: HEART ENLARGED WITHOUT FAILURE. NO OTHER SIGNIFICANT RADIOGRAPHIC FINDING IN THE CHEST. Head CT 12/29/16 09:55 IMPRESSION: Arachnoid cyst. No acute abnormality in the brain. Lung Scan-VQ NM 12/29/16 11:42 IMPRESSION: NORMAL VENTILATION-PERFUSION LUNG SCAN. NEGATIVE FOR PULMONARY EMBOLI. Plan Discharge Plan: Transfer to [facility] when a bed becomes available. Dr. Nito Reid is the accepting physician. Time Spent: Greater than 30 Minutes
--- NOTE | 2016-12-30 20:29 | PDOC PROGRESS REPORT ---
Subjective Progress Note for:: 12/30/16 Subjective:: Patient seems to be doing better with gradual improvement. Pt is denying any chest arm or neck discomfort. Patient denying any PND, orthopnea. Patient denied any sustained palpitations, dizziness, syncope, near syncope. Patient denying any fever chills. Patient denying any other significant discomfort. Patient is maintaining sinus rhythm. Patient had a 2-D echocardiogram which showed severely depressed LVEF. Patient's troponin I are trending down. Review of systems: Rest review of systems negative. Medications: Medications have been reviewed. Physical Exam Vital Signs: Temp Pulse Resp BP Pulse Ox 97.3 F 87 18 105/67 97 12/30/16 15:52 12/30/16 15:52 12/30/16 15:52 12/30/16 15:52 12/30/16 16:00 Pulse Oximeter Continuous Start: 12/29/16 16: 02 Freq: RTQ4 Status: Active Document 12/30/16 16:00 JDR (Rec: 12/30/16 17:33 JDR [id number]) Pulse Oximetry Assessment Oxygen Saturation (92-100) 97 Oxygen Flow Rate (L/min) 2 Oxygen Delivery Method Nasal Cannula Equipment Usage Equipment in Use Continuous SpO2 Machine # 14 Intake & Output 12/29/16 12/30/16 12/31/16 06:59 06:59 06:59 Intake Total 750 Balance 750 Exam: GENERAL: well-nourished and in no acute distress. Alert and oriented x3 HEAD: Atraumatic, normocephalic. EYES: Pupils equal round and reactive to light, extraocular movements intact, sclera anicteric, conjunctiva are normal. ENT: TMs normal, nares patent, oropharynx clear without exudates. Moist mucous membranes. No oral ulcerations or bleeding gums noted NECK: supple without lymphadenopathy. Trachea is central. No cervical or axillary lymphadenopathy noted. Carotids are 2+, JVD WNL LUNGS: Respiration seems nonlabored, no significant accessory muscle action noted. Breath sounds clear to auscultation bilaterally and equal noted. No wheezes rales or rhonchi noted. No significant dullness noted on percussion. CHEST: Palpation of the chest wall shows no significant chest wall tenderness. No other significant abnormalities noted. HEART: [place] [employer], No PSH, 1/6 [place] aortic area, 1/6 gaines systolic murmur mitral area, no rubs, no gallops. ABDOMEN: Soft, no significant tenderness appreciated, normoactive bowel sounds. No guarding, no rebound. No rigidity noted . No masses appreciated. EXTREMITIES: Pedal pulses are 1-2+, no calf tenderness noted. No clubbing or cyanosis.1+ pedal edema noted NEUROLOGICAL: Focused neurological exam showed no significant neurologic deficit. Normal speech, no focal weakness appreciated. PSYCH: Normal mood, normal affect. Judgment and insight within normal limits. SKIN: No significant ecchymosis, rash, ulcerations or signs of pruritus noted. MUSCULOSKELETAL EXAM: No significant joint swelling noted. Results Impressions: Chest X-Ray 12/29/16 07:08 IMPRESSION: HEART ENLARGED WITHOUT FAILURE. NO OTHER SIGNIFICANT RADIOGRAPHIC FINDING IN THE CHEST. Head CT 12/29/16 09:55 IMPRESSION: Arachnoid cyst. No acute abnormality in the brain. Lung Scan-VQ NM 12/29/16 11:42 IMPRESSION: NORMAL VENTILATION-PERFUSION LUNG SCAN. NEGATIVE FOR PULMONARY EMBOLI. Assessment & Plan - Diagnosis (1) Acute on chronic congestive heart failure Qualifiers: Congestive heart failure type: systolic Qualified Code(s): I50.23 - Acute on chronic systolic (congestive) heart failure Is this a current diagnosis for this admission?: Yes (2) Cardiomyopathy Qualifiers: Cardiomyopathy type: unspecified Qualified Code(s): I42.9 - Cardiomyopathy, unspecified Is this a current diagnosis for this admission?: Yes (3) Diabetes mellitus type 2 in obese Is this a current diagnosis for this admission?: Yes (4) Hypotension Qualifiers: Hypotension type: unspecified hypotension type Qualified Code(s): I95.9 - Hypotension, unspecified Is this a current diagnosis for this admission?: Yes (5) Obstructive sleep apnea Is this a current diagnosis for this admission?: Yes (6) Peripheral edema Is this a current diagnosis for this admission?: Yes (7) Elevated troponin I level Is this a current diagnosis for this admission?: Yes - Notes Notes: Acute on chronic CHF: Patient is improved symptomatically. Exact precipitating cause not clear but possibly arrhythmia induced. Possibly fluid overload. Doubt ischemia but in the differential diagnosis. Troponin I elevated: Most likely related to CHF in the setting of chronic kidney disease. Do not feel patient has acute coronary syndrome. Cardiomyopathy: Patient has severe dilated cardiomyopathy. Discussed prophylactic defibrillator placement. Patient prefers to be transferred to [facility]. Discussed with hospitalist. He is going to arrange this. Obstructive sleep apnea: Patient to continue with CPAP therapy. It may be worthwhile to consider re-titration since patient did not do well. Peripheral edema: Improved with diuretic therapy. Patient may benefit from ischemia workup however due to significant renal dysfunction, noninvasive evaluation with cardiac MRI may be indicated which can be performed at [facility]. - Time Time with patient: Greater than 35 minutes - CODE STATUS was discussed, patient remains full code. Surrogate decision-maker unchanged. Multiple medical problems were addressed.More than 50% of the time spent coordinating care, discussing management plans with involved caregivers. Management plans discussed with involved personnels. Medical decision making was of moderate to high complexity, patient's has multiple severe comorbidities. Medications reviewed and adjusted accordingly: Yes
[2016-12-30] MEDS: ATORVASTATIN CALCIUM 40 MG TABLET PO SCH (22:43)
[2016-12-30] MEDS: METOPROLOL TARTRATE 25 MG TABLET PO SCH (22:44)
[2016-12-31] MEDS: LANSOPRAZOLE 30 MG TAB.RAP.DR PO SCH (05:35)
[2016-12-31 06:48] LABS: ABSOLUTE BASOPHILS # (AUTO) 0.1 10^3/uL (0.0-0.2); ABSOLUTE EOSINOPHILS # (AUTO) 0.1 10^3/uL (0.0-0.6); ABSOLUTE LYMPHOCYTES (AUTO) 1.5 10^3/uL (0.5-4.7); ABSOLUTE MONOCYTES (AUTO) 0.7 10^3/uL (0.1-1.4); ABSOLUTE NEUT (AUTO) 6.8 10^3/uL (1.7-8.2); EOSINOPHILS % (AUTO) 0.6 % (0-6); HEMATOCRIT 38.1 % (37.9-51.0); HEMOGLOBIN 11.9 g/dL (13.5-17.0); HGB HCT DIFFERENCE -2.4; LYMPHOCYTES % (AUTO) 16.4 % (13-45); MEAN CORPUSCULAR HEMOGLOBIN 24.6 pg (27.0-33.4); MEAN CORPUSCULAR HGB CONC 31.2 g/dL (32.0-36.0); MEAN CORPUSCULAR VOLUME 79 fl (80-97); MONOCYTES % (AUTO) 8.2 % (3-13); RED BLOOD COUNT 4.83 10^6/uL (4.35-5.55); RED CELL DISTRIBUTION WIDTH 16.8 % (11.5-14.0); SEGMENTED NEUTROPHILS % (AUTO) 73.8 % (42-78); WHITE BLOOD COUNT 9.1 10^3/uL (4.0-10.5)
[2016-12-31] MEDS: HEPARIN SOD (PORCINE) 5,000 UNIT/ML 1 ML SYRINGE SUBCUT SCH (07:04)
[2016-12-31 07:17] LABS: ANION GAP 11 (5-19); BLOOD UREA NITROGEN 39 mg/dL (7-20); CALCIUM 9.5 mg/dL (8.4-10.2); CARBON DIOXIDE 28 mmol/L (22-30); CHLORIDE 104 mmol/L (98-107); CREATININE RESULT 2.12 mg/dL (0.52-1.25); GLUCOSE 113 mg/dL (75-110); POTASSIUM 4.9 mmol/L (3.6-5.0); SODIUM 143.4 mmol/L (137-145)
--- NOTE | 2016-12-31 07:45 | EKG REPORT ---
SEVERITY:- ABNORMAL ECG - SINUS RHYTHM LEFT ANTERIOR FASCICULAR BLOCK BORDERLINE R WAVE PROGRESSION, ANTERIOR LEADS BORDERLINE T ABNORMALITIES, ANT-LAT LEADS : Confirmed by: Dionicio Mckeon 31-Dec-2016 07:44:26
[2016-12-31 09:11] VITALS: BP 131/84
[2016-12-31] MEDS: ASPIRIN 325 MG TABLET, ENT COATED PO SCH (09:47)
[2016-12-31] MEDS: DILTIAZEM HCL 120 MG CAP.SR.24H PO SCH (09:47)
[2016-12-31] MEDS: METOPROLOL TARTRATE 25 MG TABLET PO SCH (09:48)
[2016-12-31] MEDS: FUROSEMIDE INJ/PF 40 MG/4 ML SDV IV SCH (09:48)
[2016-12-31] MEDS: RANOLAZINE 500 MG TAB.SR.12H PO SCH (09:48)
[2016-12-31] MEDS: DOCUSATE SODIUM 100 MG CAPSULE PO SCH (09:49)
[2016-12-31] MEDS: LOSARTAN POTASSIUM 25 MG TABLET PO SCH (09:52)
--- NOTE | 2016-12-31 18:21 | PDOC PROGRESS REPORT ---
Subjective Progress Note for:: 12/31/16 Subjective:: Denies any chest pain. Physical Exam Vital Signs: Temp Pulse Resp BP Pulse Ox 97.7 F 93 24 H 131/84 H 100 12/31/16 08:31 12/31/16 08:31 12/31/16 08:31 12/31/16 08:31 12/31/16 08:31 Pulse Oximeter Continuous Start: 12/29/16 16: 02 Freq: RTQ4 Status: Discharge Document 12/31/16 03:21 STI (Rec: 12/31/16 03:21 STI [id number]) Pulse Oximetry Assessment Oxygen Saturation (92-100) 99 Oxygen Flow Rate (L/min) 2.0 Oxygen Delivery Method Nasal Cannula Fraction of Inspired Oxygen (FIO2) 28 Equipment Usage Equipment in Use Continuous SpO2 Machine # [id number] Intake & Output 12/30/16 12/31/16 01/01/17 06:59 06:59 06:59 Intake Total 1308 Balance 1308 Weight 91.2 kg General appearance: PRESENT: no acute distress Eye exam: PRESENT: conjunctiva pink. ABSENT: scleral icterus Ear exam: PRESENT: normal external ear exam Mouth exam: PRESENT: moist, tongue midline Neck exam: ABSENT: JVD Respiratory exam: PRESENT: clear to auscultation shital. ABSENT: rales, rhonchi, wheezes Cardiovascular exam: PRESENT: RRR. ABSENT: diastolic murmur, rubs, systolic murmur GI/Abdominal exam: PRESENT: normal bowel sounds, soft. ABSENT: distended, guarding, mass, organolmegaly, rebound, tenderness Extremities exam: ABSENT: calf tenderness, clubbing, pedal edema Neurological exam: PRESENT: alert, awake, oriented to person, oriented to place , oriented to time, oriented to situation, CN II-XII grossly intact. ABSENT: motor sensory deficit Psychiatric exam: PRESENT: appropriate affect Skin exam: PRESENT: dry, intact, warm. ABSENT: cyanosis, rash Results Laboratory Results: 12/31/16 05:28 12/31/16 05:28 12/31/16 12/31/16 05:28 05:28 WBC 9.1 RBC 4.83 Hgb 11.9 L Hct 38.1 MCV 79 L MCH 24.6 L MCHC 31.2 L RDW 16.8 H Plt Count 147 L Seg Neutrophils % 73.8 Lymphocytes % 16.4 Monocytes % 8.2 Eosinophils % 0.6 Basophils % 1.0 Absolute Neutrophils 6.8 Absolute Lymphocytes 1.5 Absolute Monocytes 0.7 Absolute Eosinophils 0.1 Absolute Basophils 0.1 Sodium 143.4 Potassium 4.9 Chloride 104 Carbon Dioxide 28 Anion Gap 11 BUN 39 H Creatinine 2.12 H Est GFR ( Amer) 38 L Est GFR (Non-Af Amer) 31 L Glucose 113 H Calcium 9.5 Impressions: Chest X-Ray 12/29/16 07:08 IMPRESSION: HEART ENLARGED WITHOUT FAILURE. NO OTHER SIGNIFICANT RADIOGRAPHIC FINDING IN THE CHEST. Head CT 12/29/16 09:55 IMPRESSION: Arachnoid cyst. No acute abnormality in the brain. Lung Scan-VQ NM 12/29/16 11:42 IMPRESSION: NORMAL VENTILATION-PERFUSION LUNG SCAN. NEGATIVE FOR PULMONARY EMBOLI. Assessment & Plan - Diagnosis (1) Non-STEMI (non-ST elevated myocardial infarction) Is this a current diagnosis for this admission?: YesPlan: Patient is being transferred to this morning. (2) Acute on chronic congestive heart failure Qualifiers: Congestive heart failure type: systolic Qualified Code(s): I50.23 - Acute on chronic systolic (congestive) heart failure Is this a current diagnosis for this admission?: YesPlan: Patient is euvolemic currently. (3) Acute renal failure superimposed on stage 3 chronic kidney disease Is this a current diagnosis for this admission?: Yes (4) Anemia of chronic disease Is this a current diagnosis for this admission?: Yes (5) Diabetes mellitus type 2 in obese Is this a current diagnosis for this admission?: Yes (6) Obstructive sleep apnea Is this a current diagnosis for this admission?: Yes (7) Pulmonary hypertension Is this a current diagnosis for this admission?: Yes - Time Time Spent with patient: 35 or more minutes - Plan Summary Plan Summary: Transfer summary was dictated yesterday. Please see that for full details. Patient was accepted to [facility] last night however they were unable to take until this morning. He is going for an AICD placement.
== END 2016-12-31 11:19 | disposition short-term general hospital (02) | DRG 280 ==
LOC: ER 06:37 → EH 16:00 → 3W 18:34 → OBSVTOIN 12-30 13:38
DX: I21.4 Non-ST elevation (NSTEMI) myocardial infarction (principal); I50.23 Acute on chronic systolic (congestive) heart failure; I13.0 Hypertensive heart and chronic kidney disease with heart failure and stage 1 through stage 4 chronic kidney disease, or unspecified chronic kidney disease; N17.9 Acute kidney failure, unspecified; I42.9 Cardiomyopathy, unspecified; I27.2 Other secondary pulmonary hypertension; E11.22 Type 2 diabetes mellitus with diabetic chronic kidney disease; N18.3 Chronic kidney disease, stage 3 (moderate); D63.8 Anemia in other chronic diseases classified elsewhere; G47.33 Obstructive sleep apnea (adult) (pediatric); E78.5 Hyperlipidemia, unspecified; K21.9 Gastro-esophageal reflux disease without esophagitis; M17.11 Unilateral primary osteoarthritis, right knee; E66.9 Obesity, unspecified; I95.9 Hypotension, unspecified; Z83.3 Family history of diabetes mellitus; Z79.84 Long term (current) use of oral hypoglycemic drugs; Z82.49 Family history of ischemic heart disease and other diseases of the circulatory system; Z79.899 Other long term (current) drug therapy
CPT/HCPCS: 36415; 70450; 71010; 78582; 80048; 80053; 81001; 82550; 82553; 82962; 83735; 83880; 84132; 84439; 84484; 85025; 85379; 93005; 93010; 93306; 94762; 96361; 96365; 96366; 96375; 96376; 99291; A9540; A9567; G0378; J1644; J1815; J1940; J2270; J2405; J3490; J7030; J7060; Q9969

== ENCOUNTER → 2017-01-09 | Outpatient (CLI) | payer MEDICARE, OTHER ==
[2017-01-09 10:26] LABS: ANION GAP 15 (5-19); BLOOD UREA NITROGEN 46 mg/dL (7-20); CALCIUM 9.9 mg/dL (8.4-10.2); CARBON DIOXIDE 30 mmol/L (22-30); CHLORIDE 97 mmol/L (98-107); CREATININE RESULT 2.01 mg/dL (0.52-1.25); GLUCOSE 248 mg/dL (75-110); POTASSIUM 4.5 mmol/L (3.6-5.0); SODIUM 142.3 mmol/L (137-145)
== END ==
LOC: OD 08:59
PROVIDERS: ATTEND Internal Medicine Nephrology
DX: N18.3 Chronic kidney disease, stage 3 (moderate) (principal); E55.9 Vitamin D deficiency, unspecified
CPT/HCPCS: 36415; 80048; 82306

== ENCOUNTER → 2017-01-09 | Outpatient (CLI) | payer MEDICARE, OTHER | LOC: OD 08:55 | PROVIDERS: ATTEND Internal Medicine Nephrology | DX: Z53.9 Procedure and treatment not carried out, unspecified reason (principal) ==

== ENCOUNTER 2017-01-10 11:54 | Emergency (ER) | payer MEDICARE, OTHER ==
--- NOTE | 2017-01-10 12:32 | ER Document Report ---
ED Medical Screen (RME) - General Chief Complaint: Dizziness Stated Complaint: BLOOD PRESSURE ISSUES Notes: Patient is a 66-year-old male with past history of CHF and EF of 30% pending placement of a AICD, recent NSTEMI, who presents with an episode of hypotension today at home where his systolic blood pressure was noted to be in the 60s. States he became lightheaded and thought he was going to syncopized. This herbal he was sitting down. Denies any chest pain or shortness of breath. Dramatic at this time. He has had a multitude of medication changes upon his recent discharge from [facility] have greeted and performed a rapid initial assessment of this patient. A comprehensive ED assessment and evaluation of the patient, analysis of test results and completion of medical decision making process will be conducted by an additional ED providers. TRAVEL OUTSIDE OF THE [place] IN LAST 30 DAYS: No - Related Data Allergies/Adverse Reactions: No Known Allergies Allergy (Verified 01/10/17 12:01) Past Medical History - Social History Frequency of alcohol use: None Drug Abuse: None - Past Medical History Cardiac Medical History: Reports: Hx Congestive Heart Failure, Hx Heart Attack - [place] January 2017, Hx Hypercholesterolemia, Hx Hypertension Pulmonary Medical History: Reports: Hx Bronchitis, Hx Sleep Apnea Endocrine Medical History: Reports: Hx Diabetes Mellitus Type 2 Renal/ Medical History: Reports: Hx Renal Insufficiency. Denies: Hx Peritoneal Dialysis GI Medical History: Reports: Hx Gastroesophageal Reflux Disease, Hx Colonoscopy , Hx Endoscopy Musculoskeltal Medical History: Reports Hx Arthritis - RIGHT knee per x rays, Reports Hx Musculoskeletal Deformity - Back pain for 4-5 years Infectious Medical History: Past Surgical History: Reports: Hx Orthopedic Surgery - right rotator cuff - Immunizations Hx Diphtheria, Pertussis, Tetanus Vaccination: Yes Physical Exam - Vital signs Vitals: Temp Pulse Resp BP Pulse Ox 97.4 F 95 18 105/65 94 01/10/17 12:00 01/10/17 12:00 01/10/17 12:00 01/10/17 12:00 01/10/17 12:00 Interpretation: Normal Notes: PHYSICAL EXAMINATION: GENERAL: Well-appearing, well-nourished and in no acute distress. HEAD: Atraumatic, normocephalic. EYES: Pupils equal round and reactive to light, extraocular movements intact, sclera anicteric, conjunctiva are normal. ENT: nares patent, oropharynx clear without exudates. Moist mucous membranes. NECK: Normal range of motion, supple without lymphadenopathy LUNGS: Breath sounds clear to auscultation bilaterally and equal. No wheezes rales or rhonchi. HEART: Regular rate and rhythm without murmurs ABDOMEN: Soft, nontender, normoactive bowel sounds. No guarding, no rebound. No masses appreciated. EXTREMITIES: Normal range of motion, no pitting or edema. No cyanosis. NEUROLOGICAL: No focal neurological deficits. Moves all extremities spontaneously and on command. PSYCH: Normal mood, normal affect. SKIN: Warm, Dry, normal turgor, no rashes or lesions noted. Course - Vital Signs Vital signs: Temp Pulse Resp BP Pulse Ox 97.4 F 95 18 105/65 94 01/10/17 12:00 01/10/17 12:00 01/10/17 12:00 01/10/17 12:00 01/10/17 12:00
[2017-01-10 13:10] LABS: ABSOLUTE BASOPHILS # (AUTO) 0.1 10^3/uL (0.0-0.2); ABSOLUTE EOSINOPHILS # (AUTO) 0.1 10^3/uL (0.0-0.6); ABSOLUTE LYMPHOCYTES (AUTO) 1.7 10^3/uL (0.5-4.7); ABSOLUTE MONOCYTES (AUTO) 0.8 10^3/uL (0.1-1.4); ABSOLUTE NEUT (AUTO) 4.7 10^3/uL (1.7-8.2); BASOPHILS % (AUTO) 1.2 % (0-2); EOSINOPHILS % (AUTO) 1.4 % (0-6); HEMATOCRIT 43.2 % (37.9-51.0); HEMOGLOBIN 13.5 g/dL (13.5-17.0); HGB HCT DIFFERENCE -2.7; LYMPHOCYTES % (AUTO) 23.6 % (13-45); MEAN CORPUSCULAR HEMOGLOBIN 24.4 pg (27.0-33.4); MEAN CORPUSCULAR HGB CONC 31.1 g/dL (32.0-36.0); MEAN CORPUSCULAR VOLUME 78 fl (80-97); MONOCYTES % (AUTO) 10.5 % (3-13); RED BLOOD COUNT 5.52 10^6/uL (4.35-5.55); RED CELL DISTRIBUTION WIDTH 16.2 % (11.5-14.0); SEGMENTED NEUTROPHILS % (AUTO) 63.3 % (42-78); WHITE BLOOD COUNT 7.4 10^3/uL (4.0-10.5)
--- NOTE | 2017-01-10 13:18 | ER Document Report ---
ED Dizziness/Weakness - General Chief Complaint: Dizziness Stated Complaint: BLOOD PRESSURE ISSUES Notes: Patient is a 58-year-old male presents emergency Department complaining of hypertension and near-syncope episode earlier this afternoon. Patient states that he checks his blood pressure every day since he was recently discharged from [facility] after NSTEMI. He states that his systolic pressure this morning was in the 60s and he felt like he was going to pass out so he sat down and felt a lot better. He denies any chest pain, shortness of breath, dyspnea, cough, jaw pain, back pain, arm pain, nausea, vomiting, epigastric pain, abdominal pain. Patient has a complicated past medical history. Was recently discharged from [facility] about 2 days ago from [facility] with a recent NSTEMI, and is due for an AICD 45 days out from his NSTEMI. While he was [facility] he was not able to undergo a coronary catheter due to history of chronic kidney disease. Patient states that he was discharged home on by any medications and is been taking a baby aspirin and Eliquis given his recent diagnosis. Past medical history significant for congestive heart failure with an ejection fraction of 20-30%, NSTEMI December 2016, chronic kidney disease, hyperlipidemia, hypertension, , history of bronchitis, obstructive sleep apnea, diabetes, GERD, osteoarthritis Past surgical history significant for right rotator cuff repair. PCP: Dr Cruz Cards: Dr Linder Endocrine: Dr. Hoang Nephrology: Dr. Jackson (next follow up is 01/16) Home Medications: Aspirin 81 mg daily Atorvastatin 40 mg once daily Eliquis 5 mg twice a day Ferrex forte 150 mg once a day Insulin BID Losartan 25 mg daily Metoprolol succinate 25 mg daily Spironolactone 12.5 mg daily Torsemide 60mg BID Vit B12 Vit D3 TRAVEL OUTSIDE OF THE [place] IN LAST 30 DAYS: No - Related Data Allergies/Adverse Reactions: No Known Allergies Allergy (Verified 01/10/17 12:01) Past Medical History - Social History Smoking Status: Never Smoker Frequency of alcohol use: None Drug Abuse: None Family History: Reviewed & Not Pertinent, DM, Hypertension Patient has suicidal ideation: No Patient has homicidal ideation: No - Past Medical History Cardiac Medical History: Reports: Hx Congestive Heart Failure, Hx Heart Attack - [place] January 2017, Hx Hypercholesterolemia, Hx Hypertension Pulmonary Medical History: Reports: Hx Bronchitis, Hx Sleep Apnea Endocrine Medical History: Reports: Hx Diabetes Mellitus Type 2 Renal/ Medical History: Reports: Hx Renal Insufficiency. Denies: Hx Peritoneal Dialysis GI Medical History: Reports: Hx Gastroesophageal Reflux Disease, Hx Colonoscopy , Hx Endoscopy Musculoskeltal Medical History: Reports Hx Arthritis - RIGHT knee per x rays, Reports Hx Musculoskeletal Deformity - Back pain for 4-5 years Infectious Medical History: Past Surgical History: Reports: Hx Orthopedic Surgery - right rotator cuff - Immunizations Hx Diphtheria, Pertussis, Tetanus Vaccination: Yes Hx Pneumococcal Vaccination: 11/05/13 Review of Systems - Review of Systems Constitutional: See HPI Cardiovascular: No symptoms reported Respiratory: No symptoms reported Gastrointestinal: No symptoms reported Neurological/Psychological: See HPI -: Yes All other systems reviewed and negative Physical Exam - Vital signs Vitals: Temp Pulse Resp BP Pulse Ox 97.4 F 95 18 105/65 94 01/10/17 12:00 01/10/17 12:00 01/10/17 12:00 01/10/17 12:00 01/10/17 12:00 - Notes Notes: PHYSICAL EXAM GENERAL: Alert, interacts well. HEAD: Normocephalic, atraumatic. EYES: Pupils equal, round, and reactive to light. Extraocular movements intact. ENT: Oral mucosa moist, tongue midline. NECK: Full range of motion. Supple. Trachea midline. LUNGS: Clear to auscultation bilaterally, no wheezes, rales, or rhonchi. No respiratory distress. HEART: Regular rate and rhythm. No murmurs, gallops, or rubs. ABDOMEN: Soft, nondistended, nontender. No guarding, rebound, or rigidity.. Bowel sounds present in all 4 quadrants. EXTREMITIES: Moves all 4 extremities spontaneously. No edema, radial and dorsalis pedis pulses 2/4 bilaterally. No cyanosis. NEUROLOGICAL: Alert and oriented x4. Normal speech. PSYCH: Normal affect, normal mood. SKIN: Warm, dry, normal turgor. No rashes or lesions noted. Course - Re-evaluation Re-evalutation: 01/10/17 14:11 Patient is a 66-year-old male who is hemodynamically stable, no acute distress afebrile. Given patient's recent medical history and medication changes, his complaint today is likely due to overtreatment with hypertensive medications. CBC is stable without any evidence of anemia or leukocytosis, no evidence of left-sided abnormalities, kidney function is stable at baseline in comparison with previous metabolic panels. Troponin has decreased from previous elevations in the stable at 0.043. Patient is stable for discharge home with alterations in his blood pressure medications and instructed to follow-up with his inventory control analyst this coming Thursday. Per [facility] protocol and guidelines, this case was discussed with supervising physician Dr. Micah Narayanan prior to discharge - Vital Signs Vital signs: Temp Pulse Resp BP Pulse Ox 97.4 F 95 18 105/65 94 01/10/17 12:00 01/10/17 12:00 01/10/17 12:00 01/10/17 12:00 01/10/17 12:00 - Laboratory Result Diagrams: 01/10/17 12:45 01/10/17 12:45 Laboratory results interpreted by me: 01/10/17 01/10/17 12:45 12:45 MCV 78 L MCH 24.4 L MCHC 31.1 L RDW 16.2 H BUN 48 H Creatinine 2.04 H Est GFR ( Amer) 39 L Est GFR (Non-Af Amer) 33 L Glucose 128 H - Diagnostic Test Radiology reviewed: Image reviewed, Reports reviewed Discharge - Discharge Clinical Impression: Hypotension due to medication Condition: Good Disposition: HOME, SELF-CARE Instructions: Hypotension (OM) Additional Instructions: -Please follow up with your inventory control analyst this coming week -Please do not take the following medications on 01/10/2017: Torsemide -Please do not take the following medications on 01/11/2017: Losartan, Metoprolol , Spironolactone, Torsemide -Please do not take the following medications until you follow up with your inventory control analyst: Losartan, Spironolactone -Be sure to bring your blood pressure cuff to your next appointment Referrals: RUFINA CRUZ MD [Primary Care Provider] - Follow up as needed DIPAK BHAKTA MD [ACTIVE STAFF] - Follow up in 3-5 days
[2017-01-10 13:33] LABS: ANION GAP 14 (5-19); BLOOD UREA NITROGEN 48 mg/dL (7-20); CARBON DIOXIDE 26 mmol/L (22-30); CHLORIDE 100 mmol/L (98-107); CREATININE RESULT 2.04 mg/dL (0.52-1.25); GLUCOSE 128 mg/dL (75-110); POTASSIUM 4.2 mmol/L (3.6-5.0); SODIUM 140.3 mmol/L (137-145)
--- NOTE | 2017-01-10 15:12 | EKG REPORT ---
SEVERITY:- ABNORMAL ECG - SINUS RHYTHM PROBABLE LEFT ATRIAL ABNORMALITY LEFT ANTERIOR FASCICULAR BLOCK BORDERLINE R WAVE PROGRESSION, ANTERIOR LEADS NONSPECIFIC T ABNORMALITIES, LATERAL LEADS BORDERLINE PROLONGED QT INTERVAL : Confirmed by: Alfie López MD 10-Jan-2017 15:11:37
[2017-01-10 15:31] VITALS: BP 113/82
== END 2017-01-10 15:31 | disposition home or self-care (01) ==
LOC: ER 11:54
DX: I95.2 Hypotension due to drugs (principal); T50.905A Adverse effect of unspecified drugs, medicaments and biological substances, initial encounter; R55 Syncope and collapse; I25.2 Old myocardial infarction; I13.0 Hypertensive heart and chronic kidney disease with heart failure and stage 1 through stage 4 chronic kidney disease, or unspecified chronic kidney disease; I50.9 Heart failure, unspecified; N18.9 Chronic kidney disease, unspecified; E11.22 Type 2 diabetes mellitus with diabetic chronic kidney disease; Z79.4 Long term (current) use of insulin; E78.00 Pure hypercholesterolemia, unspecified; Z79.899 Other long term (current) drug therapy
CPT/HCPCS: 36415; 71010; 80048; 84484; 85025; 93005; 93010; 99284

== ENCOUNTER → 2017-02-05 | Outpatient (CLI) | payer MEDICARE, OTHER ==
[2017-02-05 08:14] LABS: ANION GAP 13 (5-19); BLOOD UREA NITROGEN 33 mg/dL (7-20); CALCIUM 9.8 mg/dL (8.4-10.2); CARBON DIOXIDE 30 mmol/L (22-30); CHLORIDE 99 mmol/L (98-107); CREATININE RESULT 1.94 mg/dL (0.52-1.25); GLUCOSE 158 mg/dL (75-110); POTASSIUM 3.9 mmol/L (3.6-5.0); SODIUM 142.3 mmol/L (137-145)
== END ==
LOC: OD 07:23
PROVIDERS: ATTEND Internal Medicine
DX: I47.1 Supraventricular tachycardia (principal); I42.0 Dilated cardiomyopathy; I10 Essential (primary) hypertension; I50.22 Chronic systolic (congestive) heart failure; E11.9 Type 2 diabetes mellitus without complications; E78.4 Other hyperlipidemia; I34.0 Nonrheumatic mitral (valve) insufficiency; N19 Unspecified kidney failure; I47.2 Ventricular tachycardia; Z79.899 Other long term (current) drug therapy
CPT/HCPCS: 36415; 80048

== ENCOUNTER → 2017-02-23 | Outpatient (CLI) | payer MEDICARE, OTHER ==
[2017-02-23 08:16] LABS: APPEARANCE,URINE SLIGHTLY-CLOUDY; BILIRUBIN,URINE NEGATIVE (NEGATIVE); GLUCOSE, URINE NEGATIVE (NEGATIVE); KETONES,URINE NEGATIVE (NEGATIVE); LEUKOCYTE ESTERASE,URINE NEGATIVE (NEGATIVE); NITRITE,URINE NEGATIVE (NEGATIVE); PROTEIN,URINE NEGATIVE (NEGATIVE); URINE SPECIFIC GRAVITY 1.018; UROBILINOGEN,URINE NEGATIVE mg/dL (<2.0)
[2017-02-23 08:16] LABS: ABSOLUTE BASOPHILS # (AUTO) 0.1 10^3/uL (0.0-0.2); ABSOLUTE EOSINOPHILS # (AUTO) 0.1 10^3/uL (0.0-0.6); ABSOLUTE LYMPHOCYTES (AUTO) 2.5 10^3/uL (0.5-4.7); ABSOLUTE NEUT (AUTO) 5.7 10^3/uL (1.7-8.2); BASOPHILS % (AUTO) 0.9 % (0-2); EOSINOPHILS % (AUTO) 0.8 % (0-6); HEMATOCRIT 40.7 % (37.9-51.0); HEMOGLOBIN 12.6 g/dL (13.5-17.0); HGB HCT DIFFERENCE -2.9; LYMPHOCYTES % (AUTO) 26.2 % (13-45); MEAN CORPUSCULAR HEMOGLOBIN 23.6 pg (27.0-33.4); MEAN CORPUSCULAR HGB CONC 30.9 g/dL (32.0-36.0); MEAN CORPUSCULAR VOLUME 76 fl (80-97); MONOCYTES % (AUTO) 11.1 % (3-13); RED BLOOD COUNT 5.33 10^6/uL (4.35-5.55); RED CELL DISTRIBUTION WIDTH 16.6 % (11.5-14.0); WHITE BLOOD COUNT 9.4 10^3/uL (4.0-10.5)
[2017-02-23 08:38] LABS: ALBUMIN 3.9 g/dL (3.5-5.0); ANION GAP 13 (5-19); BLOOD UREA NITROGEN 28 mg/dL (7-20); CALCIUM 10.2 mg/dL (8.4-10.2); CARBON DIOXIDE 23 mmol/L (22-30); CHLORIDE 106 mmol/L (98-107); CREATININE RESULT 1.67 mg/dL (0.52-1.25); GLUCOSE 120 mg/dL (75-110); PHOSPHORUS 4.1 mg/dL (2.5-4.5); POTASSIUM 4.7 mmol/L (3.6-5.0); SODIUM 142.4 mmol/L (137-145)
[2017-02-24 07:31] LABS: VITAMIN D 25-HYDROXY 49.4 ng/mL (30.0-100.0)
[2017-02-24 11:39] LABS: CREATININE URINE 204.2 mg/dL (Not Estab.); MICROALBUMIN URINE 35.2 ug/mL (Not Estab.)
== END ==
LOC: OD 07:09
PROVIDERS: ATTEND Internal Medicine Nephrology
DX: I12.9 Hypertensive chronic kidney disease with stage 1 through stage 4 chronic kidney disease, or unspecified chronic kidney disease (principal); N18.3 Chronic kidney disease, stage 3 (moderate); D64.9 Anemia, unspecified; I47.1 Supraventricular tachycardia; I42.0 Dilated cardiomyopathy; E11.9 Type 2 diabetes mellitus without complications; I34.0 Nonrheumatic mitral (valve) insufficiency; Z79.899 Other long term (current) drug therapy
CPT/HCPCS: 36415; 80048; 81001; 82040; 82043; 82306; 82570; 83970; 84100; 84132; 85025

== ENCOUNTER 2017-03-06 15:02 | Inpatient (IN) | payer MEDICARE, OTHER ==
--- NOTE | 2017-03-06 15:46 | ER Document Report ---
ED Medical Screen (RME) - General Mode of Arrival: Wheelchair Information source: Patient TRAVEL OUTSIDE OF THE [place] IN LAST 30 DAYS: No - HPI Patient complains to provider of: Shortness of Breath Onset: Other - 3 days ago Associated Symptoms: Other - see notes above Exacerbated by: Movement, Walking <BRITTANY MOISE - Last Filed: 03/06/17 16:19> <MARGI KLEIN - Last Filed: 03/06/17 20:34> - General Chief Complaint: Breathing Difficulty Stated Complaint: DIFFICULTY BREATHING Time Seen by Provider: 03/06/17 15:36 Notes: 66 year old male with history of CHF, renal insufficiency, anemia, hypertension , hyperlipidemia, and non-STEMI presents to the ED complaining of shortness of breath that started 3 days ago. Patient reports that he sees Dr. Ordonez for his anemia, but saw his primary care provider, Dr. Salomon, 2 days ago and was told that he was dehydrated and still anemic. Patient states that his primary care provider believes he is dehydrated because of having a colonoscopy , endoscopy, and EGD in a short time frame. Patient was having these procedures to isolate the reason for his anemia. Patient is also complaining of cough, diaphoresis, chills, and worsening shortness of breath with exertion. Patient denies chest pain or nausea. Patient was transferred to [place] for a non-STEMI on 12/30/2016. (BRITTANY MOISE) - Related Data Allergies/Adverse Reactions: No Known Allergies Allergy (Verified 01/10/17 12:01) Past Medical History - General Information source: Patient - Past Medical History Cardiac Medical History: Reports: Hx Congestive Heart Failure, Hx Heart Attack - [place] December 2016, Hx Hypercholesterolemia, Hx Hypertension Pulmonary Medical History: Reports: Hx Bronchitis, Hx Sleep Apnea Endocrine Medical History: Reports: Hx Diabetes Mellitus Type 2 Renal/ Medical History: Reports: Hx Renal Insufficiency. Denies: Hx Peritoneal Dialysis GI Medical History: Reports: Hx Gastroesophageal Reflux Disease, Hx Colonoscopy , Hx Endoscopy Musculoskeltal Medical History: Reports Hx Arthritis - RIGHT knee per x rays, Reports Hx Musculoskeletal Deformity - Back pain for 4-5 years Infectious Medical History: Past Surgical History: Reports: Hx Orthopedic Surgery - right rotator cuff - Immunizations Hx Diphtheria, Pertussis, Tetanus Vaccination: Yes <BRITTANY MOISE - Last Filed: 03/06/17 16:19> Review of Systems - Review of Systems Constitutional: See HPI, Chills, Diaphoresis EENT: No symptoms reported Cardiovascular: No symptoms reported. denies: Chest pain Respiratory: See HPI, Cough, Short of breath Gastrointestinal: No symptoms reported. denies: Nausea Genitourinary: No symptoms reported Male Genitourinary: No symptoms reported Musculoskeletal: No symptoms reported Skin: No symptoms reported Hematologic/Lymphatic: No symptoms reported Neurological/Psychological: No symptoms reported -: Yes All other systems reviewed and negative <BRITTANY MOISE - Last Filed: 03/06/17 16:19> Physical Exam - General General appearance: Alert, Other - Obvious shortness of breath when talking. - Respiratory Respiratory status: No respiratory distress Breath sounds: Normal - Cardiovascular Rhythm: Regular, Tachycardia Heart sounds: Normal auscultation Murmur: No Friction rub: No Gallop: None auscultated <BRITTANY MOISE - Last Filed: 03/06/17 16:19> Course - Laboratory Result Diagrams: 03/06/17 16:10 03/06/17 16:10 <MARGI KLEIN - Last Filed: 03/06/17 20:34> - Vital Signs Vital signs: Temp Pulse Resp BP Pulse Ox 97.8 F 104 H 11 L 112/75 97 03/06/17 15:03 03/06/17 15:03 03/06/17 18:00 03/06/17 18:00 03/06/17 18:00 - Laboratory Laboratory results interpreted by me: 03/06/17 03/06/17 03/06/17 16:10 16:10 16:10 Hgb 11.1 L Hct 36.7 L MCV 77 L MCH 23.2 L MCHC 30.2 L RDW 16.7 H PT 17.0 H Chloride 109 H Carbon Dioxide 20 L BUN 27 H Creatinine 1.64 H Est GFR ( Amer) 51 L Est GFR (Non-Af Amer) 42 L Glucose 192 H NT-Pro-B Natriuret Pep 03/06/17 16:10 Hgb Hct MCV MCH MCHC RDW PT Chloride Carbon Dioxide BUN Creatinine Est GFR ( Amer) Est GFR (Non-Af Amer) Glucose NT-Pro-B Natriuret Pep 32615 H Doctor's Discharge <BRITTANY MOISE - Last Filed: 03/06/17 16:19> <MARGI KLEIN - Last Filed: 03/06/17 20:34> - Discharge Clinical Impression: Acute on chronic congestive heart failure Condition: Stable Disposition: ADMITTED INPATIENT Scribe Documentation - Scribe Written by Scribe:: Skyler Barrios, 03/06/2017 1622 acting as scribe for :: Carlos <BRITTANY MOISE - Last Filed: 03/06/17 16:19>
[2017-03-06] MEDS ORDERED: ASPIRIN 81 MG TABLET, CHEWABLE PO ONE (15:52)
[2017-03-06 16:36] LABS: ABSOLUTE BASOPHILS # (AUTO) 0.1 10^3/uL (0.0-0.2); ABSOLUTE EOSINOPHILS # (AUTO) 0.2 10^3/uL (0.0-0.6); ABSOLUTE LYMPHOCYTES (AUTO) 1.4 10^3/uL (0.5-4.7); ABSOLUTE MONOCYTES (AUTO) 0.6 10^3/uL (0.1-1.4); ABSOLUTE NEUT (AUTO) 6.2 10^3/uL (1.7-8.2); BASOPHILS % (AUTO) 1.2 % (0-2); EOSINOPHILS % (AUTO) 2.2 % (0-6); HEMATOCRIT 36.7 % (37.9-51.0); HEMOGLOBIN 11.1 g/dL (13.5-17.0); HGB HCT DIFFERENCE -3.4; LYMPHOCYTES % (AUTO) 16.5 % (13-45); MEAN CORPUSCULAR HEMOGLOBIN 23.2 pg (27.0-33.4); MEAN CORPUSCULAR HGB CONC 30.2 g/dL (32.0-36.0); MEAN CORPUSCULAR VOLUME 77 fl (80-97); MONOCYTES % (AUTO) 7.6 % (3-13); RED BLOOD COUNT 4.77 10^6/uL (4.35-5.55); RED CELL DISTRIBUTION WIDTH 16.7 % (11.5-14.0); SEGMENTED NEUTROPHILS % (AUTO) 72.5 % (42-78); WHITE BLOOD COUNT 8.5 10^3/uL (4.0-10.5)
[2017-03-06 16:47] LABS: ALANINE AMINOTRANSFERASE 33 U/L (21-72); ALBUMIN 3.6 g/dL (3.5-5.0); ALKALINE PHOSPHATASE 111 U/L (38-126); ANION GAP 12 (5-19); ASPARTATE AMINO TRANSFERASE 20 U/L (17-59); BILIRUBIN,DIRECT 0.3 mg/dL (0.0-0.4); BILIRUBIN,TOTAL 0.9 mg/dL (0.2-1.3); BLOOD UREA NITROGEN 27 mg/dL (7-20); CALCIUM 9.5 mg/dL (8.4-10.2); CARBON DIOXIDE 20 mmol/L (22-30); CHLORIDE 109 mmol/L (98-107); CREATINE KINASE 118 U/L (55-170); CREATININE RESULT 1.64 mg/dL (0.52-1.25); GLUCOSE 192 mg/dL (75-110); SODIUM 140.6 mmol/L (137-145); TOTAL PROTEIN 6.6 g/dL (6.3-8.2)
[2017-03-06 16:59] LABS: CREATINE KINASE MB 1.17 ng/mL (<4.55); TROPONIN I 0.03 ng/mL
--- NOTE | 2017-03-06 17:59 | RADIOLOGY REPORT (SQ) ---
EXAM DESCRIPTION: CHEST SINGLE VIEW COMPLETED DATE/TIME: 03/06/2017 5:39 pm REASON FOR STUDY: SOB, h/o CHF COMPARISON: 01/10/2017 EXAM PARAMETERS: NUMBER OF VIEWS: One view. TECHNIQUE: Single frontal radiographic view of the chest acquired. RADIATION DOSE: NA LIMITATIONS: None. FINDINGS: LUNGS AND PLEURA: No opacities, masses or pneumothorax. No pleural effusion. MEDIASTINUM AND HILAR STRUCTURES: No masses. Contour normal. HEART AND VASCULAR STRUCTURES: Cardiomegaly. Mild pulmonary vascular congestion. No devonte CHF. BONES: No acute findings. HARDWARE: None in the chest. OTHER: No other significant finding. IMPRESSION: Cardiomegaly with pulmonary vascular congestion but no devonte CHF. TECHNICAL DOCUMENTATION: JOB ID: [id number]
--- NOTE | 2017-03-06 18:04 | ER Document Report ---
ED General - General Chief Complaint: Breathing Difficulty Stated Complaint: DIFFICULTY BREATHING Time Seen by Provider: 03/06/17 15:36 Mode of Arrival: Wheelchair Notes: Patient is a 66-year-old male who presents emergency department complaining of dyspnea on exertion, shortness of breath, dry cough past 3 days. Patient states she has undergone multiple procedures this month to evaluate for his underlying anemia. He recently had a colonoscopy, EGD and pill endoscopy over the past 15 days to evaluate for his anemia. Patient then states after that time he has become short of breath and dyspnea on exertion. Patient states that he is followed up with his primary care physician multiple times who felt that symptoms were related to dehydration and his underlying anemia. Patient to dry cough, diaphoresis, chills, dyspnea on exertion but denies any chest pain , nausea, vomiting, abdominal pain, diarrhea constipation. Past medical history significant for CHF with unknown ejection fraction, renal insufficiency, anemia, hypertension, hyperlipidemia, history of an an STEMI in December 30 of this year, obstructive sleep apnea requiring BiPAP, insulin- dependent diabetes, GERD, osteoarthritis past surgical history significant for catheterization without stent placement for recent NSTEMI, history of right arthroscopic knee and right rotator cuff repair Social history denies any tobacco, alcohol or drug use. Denies any allergies Dr. Cruz is his primary care provider, Dr. Jackson his fruit tester, Dr. Hoang is his bilingual middle school teacher, Dr. Lee is his quality control coordinator, Dr. Ordonez is his clinical education assistant, Dr. Anderson with data his most recent GI evaluation. TRAVEL OUTSIDE OF THE [place] IN LAST 30 DAYS: No - Related Data Allergies/Adverse Reactions: No Known Allergies Allergy (Verified 01/10/17 12:01) Home Medications: Current Home Medications Apixaban [Eliquis 5 mg Tablet] 5 mg PO BID 03/06/17 [History] Atorvastatin Calcium [Lipitor 40 mg Tablet] 40 mg PO QHS 03/06/17 [History] Cholecalciferol (Vitamin D3) [Vitamin D3 1000 Unit Tablet] 1,000 units PO BID [History] Cyanocobalamin (Vitamin B-12) [Vitamin B-12] 1,000 mcg SL QPM 03/06/17 [History] Glimepiride [Amaryl 4 mg Tablet] 2 mg PO DAILY 03/06/17 [History] Insulin NPH Hum/Reg Insulin Hm [Novolin 70-30 100 Unit/ml Vial] 20 units SQ DAILYP PRN 03/06/17 [History] Iron Aspgly&Ps/C/B12/FA/Ca/Suc [Ferrex 150 Forte Plus Capsule] 1 cap PO QPM [History] Linagliptin [Tradjenta] 5 mg PO QAM 03/06/17 [History] Nitroglycerin [Nitrostat] 0.4 mg SL Q5M 03/06/17 [History] Pantoprazole Sodium [Protonix] 40 mg PO DAILYP PRN 03/06/17 [History] Sitagliptin Phos/Metformin HCl [Janumet Xr 50-500 mg Tablet] 0.5 tab PO QAM [History] Spironolactone [Aldactone 25 mg Tablet] 25 mg PO DAILY 03/06/17 [History] Torsemide [Demadex 20 mg Tablet] 20 mg PO DAILYP PRN 03/06/17 [History] Past Medical History - General Information source: Patient - Social History Smoking Status: Never Smoker Family History: Reviewed & Not Pertinent, DM, Hypertension Patient has suicidal ideation: No Patient has homicidal ideation: No - Past Medical History Cardiac Medical History: Reports: Hx Congestive Heart Failure, Hx Heart Attack - [place] December 2016, Hx Hypercholesterolemia, Hx Hypertension Pulmonary Medical History: Reports: Hx Bronchitis, Hx Sleep Apnea Endocrine Medical History: Reports: Hx Diabetes Mellitus Type 2 Renal/ Medical History: Reports: Hx Renal Insufficiency. Denies: Hx Peritoneal Dialysis GI Medical History: Reports: Hx Gastroesophageal Reflux Disease, Hx Colonoscopy , Hx Endoscopy Musculoskeltal Medical History: Reports Hx Arthritis - RIGHT knee per x rays, Reports Hx Musculoskeletal Deformity - Back pain for 4-5 years Infectious Medical History: Past Surgical History: Reports: Hx Orthopedic Surgery - right rotator cuff - Immunizations Hx Diphtheria, Pertussis, Tetanus Vaccination: Yes Hx Pneumococcal Vaccination: 11/05/13 Review of Systems - Review of Systems Constitutional: See HPI Cardiovascular: See HPI Respiratory: See HPI Gastrointestinal: See HPI Neurological/Psychological: No symptoms reported -: Yes All other systems reviewed and negative Physical Exam - Vital signs Vitals: Temp Pulse Resp BP Pulse Ox 97.8 F 104 H 15 109/81 95 03/06/17 15:03 03/06/17 15:03 03/06/17 15:03 03/06/17 15:03 03/06/17 15:03 - Notes Notes: PHYSICAL EXAM GENERAL: Alert, interacts well. HEAD: Normocephalic, atraumatic. EYES: Pupils equal, round, and reactive to light. Extraocular movements intact. ENT: Oral mucosa moist, tongue midline. NECK: Full range of motion. Supple. Trachea midline. LUNGS: Clear to auscultation bilaterally, no wheezes, rales, or rhonchi. No respiratory distress. HEART: Regular rate and rhythm. No murmurs, gallops, or rubs. ABDOMEN: Soft, nondistended, nontender. No guarding, rebound, or rigidity.. Bowel sounds present in all 4 quadrants. EXTREMITIES: Moves all 4 extremities spontaneously. No edema, radial and dorsalis pedis pulses 2/4 bilaterally. No cyanosis. NEUROLOGICAL: Alert and oriented x4. Normal speech. PSYCH: Normal affect, normal mood. SKIN: Warm, dry, normal turgor. No rashes or lesions noted. Course - Re-evaluation Re-evalutation: 03/06/17 18:33 Patient is a 66-year-old male who is hemodynamically stable, no acute distress and afebrile. History, physical exam and laboratory evaluation [place] [address], with chest x-ray showing vascular congestion but no devonte CHF. Patient vitals signs stable without any evidence of hypoxemia at rest however, patient was ambulated 20 steps and was tachypnic and hypoxic to low 80's. Discussion with Dr. Mckeon, he recommends patient to be admitted to hospitalist service for acute CHF exacerbation for diuresis. 03/06/17 20:03 Has been accepted by hospitalist Dr. Capps for inpatient admission for acute CHF exacerbation patient is agreeable with plan.. Otherwise hemodynamically stable, resting comfortably in bed. - Vital Signs Vital signs: Temp Pulse Resp BP Pulse Ox 97.8 F 104 H 15 109/81 100 03/06/17 15:03 03/06/17 15:03 03/06/17 15:03 03/06/17 15:03 03/06/17 17:28 - Laboratory Result Diagrams: 03/06/17 16:10 03/06/17 16:10 Laboratory results interpreted by me: 06/30/17 06/30/17 06/30/17 16:10 16:10 16:10 Hgb 11.1 L Hct 36.7 L MCV 77 L MCH 23.2 L MCHC 30.2 L RDW 16.7 H PT 17.0 H Chloride 109 H Carbon Dioxide 20 L BUN 27 H Creatinine 1.64 H Est GFR ( Amer) 51 L Est GFR (Non-Af Amer) 42 L Glucose 192 H NT-Pro-B Natriuret Pep 03/06/17 16:10 Hgb Hct MCV MCH MCHC RDW PT Chloride Carbon Dioxide BUN Creatinine Est GFR ( Amer) Est GFR (Non-Af Amer) Glucose NT-Pro-B Natriuret Pep 68724 H - Diagnostic Test Radiology reviewed: Image reviewed, Reports reviewed - EKG Interpretation by Me EKG shows normal: Sinus rhythm Rate: Normal Rhythm: NSR [place]/QRS: LAHB/LAFB Voltage: Consistant with LVH When compared to previous EKG there are: No significant change - Consults Dr. Capps Time consulted: 20:00 Reason for consultation: 03/06/17 20:03 hospital admission Consulted provider: will come to ER Discharge - Discharge Clinical Impression: Acute on chronic congestive heart failure Qualifiers: Congestive heart failure type: systolic Qualified Code(s): I50.23 - Acute on chronic systolic (congestive) heart failure Condition: Stable Disposition: ADMITTED INPATIENT Admitting Provider: Gil Capps Unit Admitted: IMCU Additional Instructions: Please take medication as prescribed Please follow-up with your quality control coordinator of next week please return to the emergency department with any worsening shortness of breath, weight gain, leg swelling
[2017-03-06] MEDS ORDERED: FUROSEMIDE INJ/PF 20 MG/2 ML SDV IM ONE (18:33)
[2017-03-06] MEDS ORDERED: FUROSEMIDE INJ/PF 40 MG/4 ML SDV IV ONE (18:52)
--- NOTE | 2017-03-06 20:51 | EKG REPORT ---
SEVERITY:- ABNORMAL ECG - SINUS RHYTHM PROBABLE LEFT ATRIAL ABNORMALITY LEFT ANTERIOR FASCICULAR BLOCK PROBABLE LEFT VENTRICULAR HYPERTROPHY BORDERLINE PROLONGED QT INTERVAL BORDERLINE T ABNORMALITIES, ANT-LAT LEADS : Confirmed by: Dionicio Mckeon 06-Mar-2017 20:51:08
[2017-03-06 23:17] LABS: ADD ON TESTING BLD IN LAB ACKNOWLEDGE
[2017-03-06 23:29] LABS: MAGNESIUM 2.2 mg/dL (1.6-2.3)
[2017-03-06] MEDS ORDERED: DEXTROSE 50%-WATER 25 GM/50 ML DISP.SYRIN IV PRN ×2 (23:44)
[2017-03-06] MEDS ORDERED: DEXTROSE 40% GEL 15 GM TUBE PO PRN ×2 (23:44)
[2017-03-06] MEDS ORDERED: GLUCAGON,HUMAN RECOMB 1 MG INJ IM PRN (23:44)
[2017-03-06] MEDS ORDERED: PROMETHAZINE HCL 25 MG TABLET PO PRN (23:50)
[2017-03-06] MEDS ORDERED: ACETAMINOPHEN 325 MG TABLET PO PRN (23:50)
--- NOTE | 2017-03-07 00:13 | PDOC H&P ---
History of Present Illness Admission Date/PCP: 03/06/17 20:[address] Johann Moraes Patient complains of: difficulty breathing History of Present Illness: BAM MORRISON is a 66 year old -Danish male with known underlying coronary artery disease, transferred from our facility December 30 to [facility] for non-STEMI, with cath performed that time, without stent or angioplasty. Known underlying systolic congestive heart failure, with echocardiogram earlier this year revealing an ejection fraction of approximately 20%. Presents to the emergency room for evaluation of 3 day history of progressive progressively worsening dyspnea on exertion, along with intermittent dry cough. There has been no ankle swelling. States she has actually lost 22 pounds since his discharge from [facility]. Various medications have been adjusted recently. States he is compliant with his medications. Denies chest pain, nausea vomiting, fever or chills, diarrhea or dysuria. Currently resting quietly, stating he is breathing more comfortably. States he has had good urine output from the Lasix given in the emergency room. Patient has been discussed with emergency room nurse practitioner who evaluated the patient. . Laboratory results are listed in [employer] and are reviewed. X-ray summary results are listed below, with full report(s) reviewed. . EKG reviewed and compared to prior tracing from 10 January of this year . Social history/personal habits: . 3 grown children. Retired and on disability. No use of alcohol tobacco or illicit drugs. No known drug allergies. Home medications initially autopopulated into [employer] may not accurately reflect patient's true medications, dosages, and/or frequencies. ip technology transactions attorney has reconciled medications. Patient currently on Eliquis; uncertain exactly why. States he has been told in the past that he has an irregular heartbeat, but states he has never heard the terms atrial fibrillation or atrial flutter. No history of pulmonary embolus or DVT. REVIEW OF SYSTEMS: Constitutional: No fever or chills. Eyes: Wears glasses. ENT: No swallowing problems or complaints. Denies hearing loss. Pulmonary: See history and present illness. Cardiovascular: See history and present illness. Gastrointestinal: No current complaints, including nausea or vomiting. Skin: No current complaints, including rashes. Hematologic: Easy bruising. Neurologic: No current complaints, including numbness or tingling. Musculoskeletal: Mild joint pain from arthritis. Psychiatric: Denies anxiety or depression. Endocrine: No current complaints, including polyuria. Genitourinary: No current complaints, including dysuria. PHYSICAL EXAMINATION: 5 feet 11 inches tall. 94.7 kg. BMI 29.1 kg/m. Pressure 122/85. Pulse 107 and regular. 98% saturation on room air. Respirations are 24 and unlabored. Temperature 97.8. Slightly overweight otherwise well-nourished well-developed -[place]anish male appearing a bit younger than his stated age. Pleasant awake alert and cooperative. Somewhat anxious, although no devonte agitation. is present at his side; patient approves. Skin is warm and dry. No grossly obvious evidence of rash in areas of skin examined. No subcutaneous nodules palpated. ENT: Hearing grossly normal to normal conversation. Tongue midline on protrusion pink and slightly tacky. Eyes: No scleral icterus. Pupils equal and reactive to light at 4 mm. [place] conjunctivae. Neck is supple and nontender to gentle active range of motion and palpation. Midline trachea. No palpable thyroid nodule mass enlargement or tenderness. Lymphatic: No palpable cervical or clavicular nodes. Neck and lymphatic exams limited by patient body habitus. Psychiatric: Reasonable insight into acute and chronic medical issues. Oriented to time location and why here. Lungs: Auscultation reveals clear and equal breath sounds bilaterally. No use of accessory respiratory muscles. Cardiovascular: Heart regular rate and rhythm, without gallop murmur or rub. No carotid or abdominal aortic bruits. No ankle or pedal edema. Palpable dorsalis pedis pulses. Abdomen:soft slightly distended nontender with positive bowel sounds. Unable to adequately evaluate abdomen for masses or organomegaly due to distention. Extremities: Feet are warm and dry. No calf tenderness to compression. No grossly obvious visual evidence of calf swelling. Gentle manipulation of lower extremities fails to reveal any obvious evidence of injury or instability to knees hips or ankles. Neurologic: Moves upper extremities grossly normally. Patellar reflexes absent. Absent Babinski. Light touch is intact at feet. Dorsiflexion and plantarflexion of feet 5 / 5 and symmetric. Past Medical History Cardiac Medical History: Reports: Congestive Heart Failure - Systolic; ejection fraction 2016 of approximately 20%., Myocardial Infarction - [place] December 2016, Hyperlipidema, Hypertension Denies: Atrial Fibrillation, DVT, Pulmonary Embolism Pulmonary Medical History: Reports: Bronchitis, Sleep Apnea - Nasal CPAP; uncertain settings. Denies: Asthma, Chronic Obstructive Pulmonary Disease (COPD) EENT Medical History: Reports: Eyes - Glasses Denies: Ears, Throat Neurological Medical History: Denies: Hemorrhagic CVA, Ischemic CVA, Seizures Endocrine Medical History: Reports: Diabetes Mellitus Type 2 Denies: Diabetes Mellitus Type 1, Hyperthyroidism, Hypothyroidism Renal/ Medical History: Reports: Chronic Kidney Disease - Stage III GI Medical History: Reports: Gastroesophageal Reflux Disease, Other - Colonoscopic polypectomy February 2017; pill endoscopy. Upper endoscopy. Denies: Cirrhosis, Peptic Ulcer Disease Musculoskeltal Medical History: Reports: Arthritis - RIGHT knee per x rays Skin Medical History: Reports: None Psychiatric Medical History: Denies: Alcohol Dependency, Depression, General Anxiety Disorder, Substance Abuse, Tobacco Dependency Hematology: Reports: Anemia - Followed by Dr. Wilson; recent total GI workup., Other - Easy bruising Infectious Medical History: Denies: Clostridium Difficile, Hepatitis B, Hepatitis C, Methicillin- Resistant Staph Aureus Past Surgical History Past Surgical History: Reports: Orthopedic Surgery - right rotator cuff Social History Information Source: Patient, Emergency Med Personnel, [facility] Records Lives with: Spouse/Significant other Smoking Status: Never Smoker Frequency of Alcohol Use: None Hx Recreational Drug Use: No Drugs: None Hx Prescription Drug Abuse: No - Advance Directive Resuscitation Status: Full Code Surrogate healthcare decision maker:: Family History Family History: Reviewed & Not Pertinent, DM, Hypertension Parental Family History Reviewed: Yes - Uncertain cause of parents' deaths Children Family History Reviewed: Yes - Healthy Sibling(s) Family History Reviewed.: Yes - Uncertain health status Medication/Allergy Home Medications: Apixaban [Eliquis 5 mg Tablet] 5 mg PO BID 03/06/17 Atorvastatin Calcium [Lipitor 40 mg Tablet] 40 mg PO QHS 03/06/17 Cholecalciferol (Vitamin D3) [Vitamin D3 1000 Unit Tablet] 1,000 units PO BID Cyanocobalamin (Vitamin B-12) [Vitamin B-12] 1,000 mcg SL QPM 03/06/17 Glimepiride [Amaryl 4 mg Tablet] 2 mg PO DAILY 03/06/17 Iron Aspgly&Ps/C/B12/FA/Ca/Suc [Ferrex 150 Forte Plus Capsule] 1 cap PO QPM Linagliptin [Tradjenta] 5 mg PO QAM 03/06/17 Nitroglycerin [Nitrostat] 0.4 mg SL Q5M 03/06/17 Pantoprazole Sodium [Protonix] 40 mg PO DAILYP PRN 03/06/17 Furosemide [Lasix 20 mg Tablet] 20 mg PO DAILY #30 tablet 03/09/17 Lisinopril [Prinivil 5 mg Tablet] 2.5 mg PO Q12 #30 tablet 03/09/17 Metoprolol Succinate [Toprol Xl 25 mg Tab.sr] 12.5 mg PO Q12 #30 tab.sr.24h 11/21 Midodrine HCl [Proamatine 5 mg Tablet] 5 mg PO .TID@0600,1100,1500 #90 tablet Allergies/Adverse Reactions: No Known Allergies Allergy (Verified 01/10/17 12:01) Physical Exam Vital Signs: Temp Pulse Resp BP Pulse Ox 97.8 F 104 H 11 L 112/75 97 03/06/17 15:03 03/06/17 15:03 03/06/17 18:00 03/06/17 18:00 03/06/17 18:00 Results Laboratory Results: 03/06/17 21:45 Troponin I 0.030 Impressions: Chest X-Ray 03/06/17 15:52 IMPRESSION: Cardiomegaly with pulmonary vascular congestion but no devonte CHF. Assessment & Plan - Diagnosis (1) Diabetes mellitus type 2 in nonobese Is this a current diagnosis for this admission?: YesPlan: Diabetic cardiac prerenal diet. Accu-Cheks with appropriate sliding scale coverage. Resume home medications as appropriate once these have been determined and reviewed. (2) Acute on chronic systolic (congestive) heart failure Is this a current diagnosis for this admission?: YesPlan: CHF protocol, with repeat troponin and EKG. Cardiology consult. I have strongly encouraged patient to be careful getting out of bed without notifying staff, to avoid a fall with injury. Knee high SCDs for DVT prophylaxis; with patient on Eliquis, no need for Lovenox or heparin. Impression and plans were discussed with patient and , both of whom concur. Time spent in evaluation and management of patient: 68 minutes. (3) History of non-ST elevation myocardial infarction (NSTEMI) Is this a current diagnosis for this admission?: YesPlan: Recent records requested from [facility]. (4) Anticoagulated Is this a current diagnosis for this admission?: YesPlan: Resume home medications as appropriate once these have been determined and reviewed. (5) CKD (chronic kidney disease), stage III Is this a current diagnosis for this admission?: Yes (6) HLD (hyperlipidemia) Qualifiers: Hyperlipidemia type: unspecified Qualified Code(s): E78.5 - Hyperlipidemia, unspecified Is this a current diagnosis for this admission?: YesPlan: Resume home medications as appropriate once these have been determined and reviewed. (7) Obstructive sleep apnea Is this a current diagnosis for this admission?: YesPlan: CPAP. Patient uncertain of settings. Has nasal CPAP at home.
[2017-03-07 04:27] LABS: ABSOLUTE BASOPHILS # (AUTO) 0.1 10^3/uL (0.0-0.2); ABSOLUTE EOSINOPHILS # (AUTO) 0.2 10^3/uL (0.0-0.6); ABSOLUTE LYMPHOCYTES (AUTO) 1.6 10^3/uL (0.5-4.7); ABSOLUTE MONOCYTES (AUTO) 0.7 10^3/uL (0.1-1.4); ABSOLUTE NEUT (AUTO) 6.6 10^3/uL (1.7-8.2); BASOPHILS % (AUTO) 1.2 % (0-2); EOSINOPHILS % (AUTO) 2.2 % (0-6); HEMATOCRIT 34.9 % (37.9-51.0); HEMOGLOBIN 10.9 g/dL (13.5-17.0); HGB HCT DIFFERENCE -2.2; LYMPHOCYTES % (AUTO) 17.1 % (13-45); MEAN CORPUSCULAR HEMOGLOBIN 23.4 pg (27.0-33.4); MEAN CORPUSCULAR HGB CONC 31.2 g/dL (32.0-36.0); MEAN CORPUSCULAR VOLUME 75 fl (80-97); MONOCYTES % (AUTO) 7.3 % (3-13); RED BLOOD COUNT 4.64 10^6/uL (4.35-5.55); RED CELL DISTRIBUTION WIDTH 16.7 % (11.5-14.0); SEGMENTED NEUTROPHILS % (AUTO) 72.2 % (42-78); WHITE BLOOD COUNT 9.2 10^3/uL (4.0-10.5)
[2017-03-07 04:42] LABS: ANION GAP 12 (5-19); BLOOD UREA NITROGEN 26 mg/dL (7-20); CALCIUM 9.5 mg/dL (8.4-10.2); CARBON DIOXIDE 20 mmol/L (22-30); CHLORIDE 108 mmol/L (98-107); CREATININE RESULT 1.61 mg/dL (0.52-1.25); GLUCOSE 178 mg/dL (75-110); POTASSIUM 4.6 mmol/L (3.6-5.0); SODIUM 140.2 mmol/L (137-145)
[2017-03-07] MEDS ORDERED: FUROSEMIDE INJ/PF 40 MG/4 ML SDV IV ONE (10:00)
[2017-03-07] MEDS: CHOLECALCIFEROL (D3) 1,000 UNIT TABLET PO SCH (10:53)
[2017-03-07] MEDS: APIXABAN 5 MG TABLET PO SCH ×2 (10:54→18:39)
[2017-03-07] MEDS: ASPIRIN 81 MG TABLET, ENT COATED PO SCH (10:54)
[2017-03-07] MEDS: SPIRONOLACTONE 25 MG TABLET PO SCH (10:54)
[2017-03-07] MEDS ORDERED: GLIMEPIRIDE 4 MG TABLET PO ONE (11:00)
[2017-03-07] MEDS ORDERED: LANSOPRAZOLE 30 MG TAB.RAP.DR PO ONE (11:00)
--- NOTE | 2017-03-07 12:03 | PROGRESS NOTE E ---
Progress Note NAME: BAM MORRISON : 1950 AGE: 66Y DATE: 03/07/2017 ROOM: 309 SUBJECTIVE: The patient is lying in bed. He still states that he is winded with very minimal activity. The patient denies any nausea, vomiting, diarrhea, dizziness, chest pain. No fever or chills. The patient has been afebrile. Blood pressures have been in a good range. The patient does not voice any other concerns at this time. REVIEW OF SYSTEMS: Rest of review of systems is negative. MEDICATIONS: Medications have been reviewed. OBJECTIVE: GENERAL: The patient is a 66-year-old male who is awake, alert and oriented to person, place, time and situation. He is verbal and conversational and does to appear to be in any acute distress. VITAL SIGNS: Temperature is 97.8, pulse 95, respirations 16, blood pressure 117/83, oxygen saturation is 100% on 2 L nasal cannula. SKIN: Warm and dry. No rashes, not diaphoretic. HEENT: Pupils are equal, round, reactive to light and accommodation. Conjunctivae pink. NECK: JVP is to the level of the right clavicle. CARDIOVASCULAR: Heart is regular. There is no rub. CHEST: Symmetrical, unlabored. Bilateral basal crackles, fine though. ABDOMEN: Soft, nontender and nondistended. BACK: No CVA tenderness or sacral edema. EXTREMITIES: No clubbing, cyanosis or edema. PSYCHIATRIC: Appropriate affect. Pleasant mood. DIAGNOSTIC DATA: Lab values are as follows: Hematology obtained on 03/07/2017: WBC is 9.2, hemoglobin 10.9, hematocrit 34.9, and platelet count is 196,000. Chemistries obtained on 03/07/2017: Sodium is 140, potassium 3.6, chloride 108, carbon dioxide 20, BUN 26, creatinine 0.61, glucose 178, calcium 9.5, troponin is 0.035. IMPRESSION AND PLAN: 1. [id number] SYSTOLIC CONGESTIVE HEART FAILURE. The patient will diurese again this morning. He had a mild improvement of symptoms compared to when he came in. Evidence of fine crackles on examination as well as JVP. The patient appears compliant at home. We will continue to encourage this. 3. DIABETES MELLITUS TYPE 2. The patient appears to be taking both Janumet as well as additional Tradjenta. I spoke with the patient about this. Given the patient's creatinine, do not advise metformin anymore as it is too marginal at this point in time and given his creatinine is 1.6. Therefore, will continue just Tradjenta. The patient is agreeance with this plan but will continue home medications and follow. 4. GASTROESOPHAGEAL REFLUX DISEASE. Will continue PPI therapy. 5. IRREGULAR HEARTBEAT. The patient is currently in sinus rhythm, however, states that he has been told in the past that he had an irregular heartbeat and subsequently is on Eliquis. Will continue this. 6. CORONARY ARTERY DISEASE. Will continue the patient's home medications. Do appreciate cardiology input with this. DISPOSITION: The patient is a FULL CODE. Pending the patient's symptomatology and diagnostic findings, will re-evaluate in the a.m. TIME: Time spent on this followup including assessment, plan, physical examination, patient education, and specialty collaboration is 35 minutes. DICTATING PHYSICIAN: CHITO ANDREWS NP [id number] PHY#: [id number] ID: [id number] JOB#: [id number] ACCT: [id number] cc: > MTDD
--- NOTE | 2017-03-07 13:45 | EKG REPORT ---
SEVERITY:- ABNORMAL ECG - SINUS RHYTHM LEFT ATRIAL ABNORMALITY LEFT ANTERIOR FASCICULAR BLOCK ABNRM R PROG, CONSIDER ASMI OR LEAD PLACEMENT NONSPECIFIC T ABNORMALITIES, LATERAL LEADS BORDERLINE PROLONGED QT INTERVAL : Confirmed by: Dionicio Mckeon 07-Mar-2017 13:44:50
[2017-03-07] MEDS ORDERED: [UNRECOGNIZED DRUG - MIXTURE] PO SCH (18:00)
[2017-03-07] MEDS: CYANOCOBALAMIN (VITAMIN B-12) 1,000 MCG TABLET PO SCH (18:38)
[2017-03-07] MEDS: IRON POLYSACCHARIDES COMPLEX 150 MG CAPSULE PO SCH (18:39)
--- NOTE | 2017-03-07 19:58 | CONSULTATION REPORT E ---
Consultation Report NAME: BAM MORRISON : 1950 AGE: 66Y DATE: 03/07/2017 309 A TO: DIPAK BHAKTA M.D. FROM: JT MALCOLM M.D. Requesting Physician REASON FOR CONSULTATION: Patient with shortness of breath with evidence of rrzti-xm-aelxffp systolic heart failure. HISTORY OF PRESENT ILLNESS: The patient is a 66-year-old Afro [place] male with known history of hypertension, dilated cardiomyopathy with several episodes of mquhe-lx-kahzlwn systolic heart failure, history of diabetes mellitus type 2, history of gout, history of dilated cardiomyopathy with LV ejection fraction 22% to 25%, states since Thursday has been having progressively increasing shortness of breath with PND and orthopnea. There is no chest pain or discomfort. There are no palpitations or syncope. There is no leg edema. The patient was admitted and found to be in congestive heart failure which is an imvgy-no-todxkat systolic heart failure and the patient has been started on Lasix and he feels better but still has orthopnea and some episodes of PND. The patient denies any fever, chills or rigors. There are no palpitations, near syncope, dizziness or syncope. The patient denies any palpitations. There are no TIA or CVA symptoms. PAST MEDICAL HISTORY: Positive for history of hypertension. He also has a mitral valve prolapse in the past with trace mitral regurgitation but this was not reported on his echocardiogram done in December 2016. He has a history of cardiomyopathy most likely dilated with ejection fraction around 20% to 25%. He has no history of coronary artery disease, no history of WV. He has a past history of nonsustained ventricular tachycardia with no recurrence. He also has a history of supraventricular tachycardia with at present no recurrence. He denies any palpitations or recurrence of nonsustained ventricular tachycardia or SVT since he has no palpitations, dizziness, syncope or near syncope. He has a history of chronic kidney disease stage 3. He also has a history of diabetes mellitus. He has a history of gout. He has a history of obstructive sleep apnea and uses a CPAP. There is no history of asthma or COPD. There is no history of thyroid disease. The patient was admitted to [facility] in December 2016 with congestive heart failure and had an elevated troponin I and was diagnosed with non-ST elevation WV and transferred to [facility] where he underwent a nuclear Cardiolite stress test which showed no reversible ischemia and showed cardiomyopathy with LV ejection fraction around 30% with LV ejection fraction 20%. His Cardiolite stress test showed LV ejection fraction of 30% and by echo of December 2016, LV ejection fraction was 22% to 25%. He has no history of TIA or CVA. There is no history of pulmonary embolism. There is no history of atrial fibrillation or flutter. In spite of this, [facility] started him on Eliquis. It is noted that in [facility] he was diagnosed with having supraventricular tachycardia. He in [facility] apart from the stress test which was negative for ischemia and, hence, due to the patient's renal failure, the patient did not undergo a left heart cath. He underwent a right heart cath where his cardiac index was 1.4 L/min and the patient had right ventricular systolic pressure of 62 and wedge of 37. He was asked to go back to [facility] in 45 days for consideration of placement of an AICD. He has no history of anxiety or depression. PAST SURGICAL HISTORY: Left hand/wrist surgery, vasectomy, cauterization of nosebleeds. He also has right rotator cuff surgery and also right heart catheterization. ALLERGIES: No known drug allergies. SOCIAL HISTORY: The patient does not smoke. There is no history of EtOH abuse. ADVANCED DIRECTIVES: The patient is a full code. His is his surrogate healthcare decision maker. REVIEW OF SYSTEMS: CONSTITUTIONAL: Denies any fever, chills or rigors. Complains of generalized fatigue and weakness. HEENT: Head: Denies headaches or head injury, no dizziness. Eyes: No history of amblyopia or diplopia. No history of amaurosis fugax. Ears: No history of hearing loss, no history of tinnitus, no history of recurrent ear infections. No vertigo. Nose: No history of hay fever. Past history of nosebleed for which he had cauterization with no recurrence. No history of nasal polyps. Mouth: No history of altered taste sensation. No history of ulcers in the mouth. No bleeding from the gums. Throat: No history of odynophagia or dysphagia. No history of recurrent sore throats. SKIN: No history of pruritus. No history of psoriasis. No history of skin cancer. No history of yellowish discoloration of the skin. NECK: No history of painless or painful swelling of the neck, no lymphadenopathy, no goiter. No history of C-spine arthritis. LUNGS: No history of asthma or COPD. No history of pulmonary embolism. No history of hemoptysis. No history of pleuritic chest pain. The patient has dry cough nonproductive and the cough seems to be more when he lies down which seems to be a PND equivalent. He has a history of sleep apnea and uses CPAP at night. CARDIAC: History of hypertension. History of dilated cardiomyopathy. No history of WV or anginal symptoms. Past history of nonsustained ventricular tachycardia and supraventricular tachycardia with no recurrence recently. Symptoms of maceu-gv-ddrbuql congestive heart failure which seems to be more left ventricular failure with no leg edema. The patient denies any palpitations, near syncope, dizziness or syncope. There is no history of sudden . For some reason the patient is on Eliquis, although he has no history of atrial fibrillation or flutter and the records from [facility] state that the patient had an SVT but no clear-cut indication for the patient being on Eliquis unless he is on it to prevent left ventricular thrombus due to the patient's LV dysfunction. As mentioned earlier, there are no anginal symptoms, no history of WV. No history of leg edema but the patient has PND and orthopnea and shortness of breath. GASTROINTESTINAL: History of GERD present which are occasional and he uses pantoprazole on a p.r.n. basis. There is no history of fatty food intolerance, no history of GI bleed, no history of altered bowel movements, no history of abdominal pain, no history of jaundice, no history of cirrhosis. MUSCULOSKELETAL: Denies any history of arthritis or collagen vascular disease. METABOLIC: He has history of hyperlipidemia and he also has a history of gout. RENAL: History of chronic kidney disease stage 3. No history of symptoms of UTI, no history of hematuria, polyuria or dysuria. The patient has a history of elevated PSA but has been told that he does not have prostate cancer. CENTRAL NERVOUS SYSTEM: No history of TIA or CVA. No history of headaches, migraines or seizures. History of sleep apnea on CPAP. No history of gait imbalance. PSYCHIATRIC: No history of anxiety or depression. No history of homicidal or suicidal ideation. VASCULAR: No history of calf or buttock claudication. No history of DVT. HEMATOLOGICAL: No history of bleeding diathesis. No history of clotting disorders. MEDICATIONS: 1. Tylenol 650 mg p.o. q.8 h. p.r.n. 2. Eliquis 5 mg p.o. b.i.d. 3. Atorvastatin 40 mg p.o. at bedtime. 4. Vitamin D 1000 units p.o. q.12 h. 5. Cyanocobalamin 1000 mcg p.o. q.p.m. 6. Hypoglycemic precautions with dextrose glucose 40% gel 15 gm p.o. and 30 gm p.o. p.r.n. 7. Dextrose 50% 12.5 gm IV and 25 gm IV p.r.n. hypoglycemia. 8. Lasix 40 mg IV x2. 9. Amaryl 2 mg p.o. before breakfast. 10. Glucagon 1 mg p.r.n. hypoglycemia. 11. Accu-Cheks before meals t.i.d. and at bedtime with sliding scale 12. Iron complex 150 mg p.o. q.p.m. 13. Prevacid 30 mg p.o. at 6 a.m. 14. Spironolactone 25 mg p.o. daily. PHYSICAL EXAMINATION: VITAL SIGNS: On examination the patient is afebrile with a temperature of 97.8 degrees Fahrenheit, pulse is 105 beats per minute, blood pressure is 117/83, respirations 16 per minute, 02 sats are 100% on 2 L nasal cannula. HEENT: Head is atraumatic, normocephalic. Eyes: Pupils are equal, round, regular, reactive to light and accommodation. Extraocular movements are normal. There is no conjunctival pallor. There is no scleral icterus. Ears: Tympanic membranes are intact. External auditory canals are clear. There are no lesions on the pinnae. Nose: There is no deviated nasal septum. There is no inflammation of the nasal mucous membranes. Mouth: Mucous membranes of the mouth are moist. Tongue is moist. There are no ulcers. There is no bleeding from the gums. Throat: There is no redness of the oropharynx. There are no exudates. SKIN: There are no skin rashes. There is no petechia or ecchymosis. There are no skin lesions. NECK: Supple. There is mild JVD present. There is no lymphadenopathy. Carotids are equal. There is no bruit. Trachea is central. LUNGS: Show bibasilar rales of CHF. There is no chest wall tenderness. There are no rhonchi or wheezing. HEART: S1 and S2 are heard. There is no S3 gallop. There is no S4 gallop. There is a systolic murmur in the left sternal border and the apex without radiation. There is no rub. There are no gallops. ABDOMEN: Soft, nontender. There is no hepatosplenomegaly. Bowel sounds are well heard. There are no tender areas or masses. There is rebound, guarding or rigidity. EXTREMITIES: Femorals are slightly diminished. There are no femoral bruits. Leg pulses are slightly diminished. There is no pedal edema. There is no DVT or cellulitis. There is no cyanosis or clubbing. There is no calf tenderness. Capillary refill is normal. CENTRAL NERVOUS SYSTEM: The patient is conscious, awake, alert, oriented x3 with no focal deficits. PSYCHIATRIC: The patient's judgment and insight are intact. His affect is normal. DIAGNOSTIC TEST RESULTS: The patient's chest x-ray shows cardiomegaly with congestive heart failure. The patient's EKG shows sinus rhythm, probable left atrial abnormality, left anterior fascicular block, probable left ventricular hypertrophy, borderline prolonged QT interval, borderline T abnormalities in anterolateral leads. The patient's repeat EKG today shows no significant changes except there is poor R-wave progression most likely secondary to lead placement. The patient's sodium is 140.2, potassium 4.6, chloride 108, CO2 20, BUN 26, creatinine 1.61, GFR is 52 which is chronic kidney disease stage 3A, his glucose is 178, his calcium is 9.5. His troponin I is negative at 0.030, 0.030 and 0.035. His NT-proBNP is 18,800. His white count is 9200, hemoglobin is 10.9, hematocrit is 34.9, MCV is 75 and his platelet count is 196,000. The patient's D-dimer is 0.68 and the patient's INR is 1.30, pro time is 17.0. IMPRESSION: 1. Mlouu-mr-hcfxcde systolic heart failure. The patient still needs additional medication. Would recommend to start the patient on Lasix 20 mg IV q.12 h. Would also start the patient on TWIN inhibitor and a beta-selena in the form of Toprol XL or Coreg. 2. Dilated cardiomyopathy with severely reduced LV ejection fraction of 20% to 25%. 3. No evidence of coronary artery disease. The patient's Lexiscan Cardiolite stress test in [facility] in December 2016 was negative for reversible ischemia with LV ejection fraction of 30%. By echo in December 2016, the LV ejection fraction was 20% to 25%. 4. Hypertension which is fairly well controlled without a lot of medications. 5. Obstructive sleep apnea on CPAP. 6. History of SVT with no recurrence. 7. History of nonsustained ventricular tachycardia. 8. Diabetes mellitus type 2, non-insulin dependent. 9. Chronic kidney disease stage 3A. 10. History of MVP not reported on the echo of 12/22 at [facility]. 11. Hyperlipidemia. 12. Question reason for Eliquis. 13. Moderate pulmonary hypertension by echo. The right ventricular systolic pressure is between 50-60 by echo of December 2016. 14. History of gout. 15. Anemia, most likely iron deficiency in view of the patient's MCV being low. RECOMMENDATIONS: As mentioned earlier, would recommend starting the patient on Lasix 20 mg IV q.12 h. We will also start the patient on lisinopril 2.5 mg p.o. q.12 h. and also start the patient on Toprol XL 12.5 mg p.o. q.12 h. and increase as tolerated. Would strongly recommend that once the patient's heart failure is controlled, that the patient have a repeat echo and the patient should be *------* AICD placement. Will try to look at the records from [facility] to see exactly why the patient is on Eliquis. Continue BiPAP at night. Continue his anti-diabetic medication. Note: The patient was seen at 8 a.m. on 03/07/2017 and 40 minutes were spent on this patient with more than 50% of the time spent on direct patient care. His medications were reviewed and adjusted and medications added and discussed with the other caregiving providers on the case and coordination of care done. Note: This is a highly complex medical decision making case in view of the patient's LV dysfunction and the patient amvgk-kp-yeyiuye congestive heart failure, his renal failure and diabetes being the comorbid conditions. Will follow with you. Thanking you. DICTATING PHYSICIAN: DIPAK BHAKAT M.D. [id number] PHY#: [id number] ID: [id number] JOB#: [id number] ACCT: [id number] cc:DIPAK BHAKTA M.D. >
[2017-03-07] MEDS: LISINOPRIL 5 MG TABLET PO SCH (22:20)
[2017-03-07] MEDS: METOPROLOL SUCCINATE 25 MG TAB.SR.24H PO SCH (22:21)
[2017-03-07] MEDS: ATORVASTATIN CALCIUM 40 MG TABLET PO SCH (22:21)
[2017-03-07] MEDS: FUROSEMIDE INJ/PF 20 MG/2 ML SDV IV SCH (22:21)
[2017-03-07] MEDS: INSULIN LISPRO 100 UNIT/ML 3 ML VIAL SUBCUT PRN (22:22)
[2017-03-08 05:23] LABS: ANION GAP 8 (5-19); BLOOD UREA NITROGEN 32 mg/dL (7-20); CALCIUM 9.4 mg/dL (8.4-10.2); CARBON DIOXIDE 26 mmol/L (22-30); CHLORIDE 107 mmol/L (98-107); CREATININE RESULT 1.67 mg/dL (0.52-1.25); GLUCOSE 129 mg/dL (75-110); MAGNESIUM 1.8 mg/dL (1.6-2.3); POTASSIUM 4.5 mmol/L (3.6-5.0); SODIUM 140.8 mmol/L (137-145)
[2017-03-08] MEDS: LANSOPRAZOLE 30 MG TAB.RAP.DR PO SCH (07:49)
[2017-03-08] MEDS: CHOLECALCIFEROL (D3) 1,000 UNIT TABLET PO SCH ×3 (07:49→21:54)
[2017-03-08] MEDS: APIXABAN 5 MG TABLET PO SCH ×2 (07:50→18:41)
[2017-03-08] MEDS ORDERED: (PENDING PHARMACY ID) (Linagliptin [Tradjenta] 5 MG) PO SCH (08:00)
[2017-03-08] MEDS: METOPROLOL SUCCINATE 25 MG TAB.SR.24H PO SCH ×2 (08:39→21:55)
[2017-03-08] MEDS: FUROSEMIDE INJ/PF 20 MG/2 ML SDV IV SCH ×2 (08:39→21:54)
[2017-03-08] MEDS: SPIRONOLACTONE 25 MG TABLET PO SCH (08:40)
[2017-03-08] MEDS: LISINOPRIL 5 MG TABLET PO SCH ×2 (08:40→21:54)
[2017-03-08] MEDS: GLIMEPIRIDE 4 MG TABLET PO SCH (08:56)
[2017-03-08] MEDS: ASPIRIN 81 MG TABLET, ENT COATED PO SCH (08:56)
[2017-03-08] MEDS: SITAGLIPTIN PHOSPHATE 50 MG TABLET PO SCH (08:56)
--- NOTE | 2017-03-08 12:23 | PROGRESS NOTE E ---
Progress Note NAME: BAM MORRISON : 1950 AGE: 66Y DATE: 03/08/2017 ROOM: 309 SUBJECTIVE: The patient is currently lying in bed. He states that he feels a little better today, still admits to some shortness of breath but overall improved in comparison to yesterday. The patient denies any dizziness, chest pain. No fevers, chills. The patient has been afebrile, his blood pressures have been in a good range, and the patient does not voice any other concerns at this time. REVIEW OF SYSTEMS: The rest of the review of systems is negative. MEDICATIONS: Medications have been reviewed. OBJECTIVE: GENERAL: The patient is a 66-year-old -[place] male who is awake, alert and oriented to person, place, time, and situation. He is verbal, conversational, ambulatory does not appear to be in any acute distress. VITAL SIGNS: As follows: Temperature is 98.0, pulse 99, respirations 22, blood pressure is 100/70, oxygen saturation 100% on 2 liters nasal cannula. SKIN: Warm and dry. No rash. Not diaphoretic. HEENT: Pupils equal, round, reactive to light and accommodation. Conjunctiva is pink. NECK: No JVD. CARDIOVASCULAR SYSTEM: Heart is regular. There is no murmur or rub. CHEST: Clear, symmetrical, unlabored. ABDOMEN: Soft, nontender, nondistended. BACK: No CVA tenderness, sacral edema. EXTREMITIES: No clubbing, cyanosis, edema. PSYCHIATRIC: Appropriate affect. Pleasant mood. DIAGNOSTICS: Lab values are as follows: Hematology obtained on 03/07/2017; WBCs are 9.2, hemoglobin is 10.9, hematocrit is 34.9, platelet count is 196,000. Chemistry obtained on 03/08/2017: Sodium is 140, potassium 4.5, chloride is 107, carbon dioxide 26, BUN 32, creatinine is 0.67, glucose 129, calcium is 9.4, magnesium is 1.8. IMPRESSION AND PLAN: 1. ACUTE ON CHRONIC SYSTOLIC CONGESTIVE HEART FAILURE. The patient is being diuresed, do appreciate Cardiology's input with this. 2. DIABETES MELLITUS TYPE 2. Will continue the patient's home medications as well as sliding scale coverage. 3. GASTROESOPHAGEAL REFLUX DISEASE. Will continue PPI therapy. 4. CORONARY ARTERY DISEASE. Will continue the patient's home medications, do appreciate Cardiology's input with this. DISPOSITION: The patient is a FULL CODE. Pending patient's symptomatology and diagnostic findings, will re-evaluate in the a.m. Time spent on this followup including assessment, plan, physical examination, patient education, and speciality collaboration is 25 minutes. DICTATING PHYSICIAN: CHITO ANDREWS NP [id number] PHY#: [id number] ID: [id number] JOB#: [id number] ACCT: [id number] cc:CHITO ANDREWS NP >
[2017-03-08] MEDS ORDERED: MIDODRINE HCL 5 MG TABLET PO ONE (17:25)
--- NOTE | 2017-03-08 18:33 | PROGRESS NOTE E ---
Progress Note NAME: BAM MORRISON : 1950 AGE: 66Y DATE: 03/08/2017 ROOM: 309 SUBJECTIVE: The patient denies any chest pain or discomfort. He states that he does not feel well. He feels very hot and cold. Still he has PND or orthopnea but there is on leg edema at present. He denies any chest pain. There are no palpitations. There is no arrhythmia seen on the monitor, ventricular or atrial. There is no dizziness, near syncope or syncope. There is no TIA or CVA symptoms. OBJECTIVE: GENERAL: On examination, the patient appears to be well built but appears to be chronically ill. VITAL SIGNS: He is afebrile with a temperature of 98.7 degrees Fahrenheit, pulse is 95 beats per minute, blood pressure is 98/75, respirations are 18 per minute, 02 sats are 100% on 2 L nasal cannula. HEENT: Head is atraumatic, normocephalic. Eyes: Pupils are equal, round, regular, reactive to light and accommodation. Extraocular movements are normal. There is no conjunctival pallor. There is no scleral icterus. ENT is negative. NECK: Supple. There is still some mild JVD present. There is no lymphadenopathy. Carotids are equal. There is no bruit. Trachea is central. LUNGS: Show bibasilar rales of CHF, which is much less than yesterday. There is no chest wall tenderness. There are no rhonchi or wheezing. HEART: S1 and S2 are heard. There is no S3 gallop. There is no S4 gallop. There is a systolic murmur in the left sternal border and the apex. There is no rub. There are no gallops. ABDOMEN: Soft, nontender. There is no hepatosplenomegaly. Bowel sounds are well heard. There are no tender areas or masses. There is rebound, guarding or rigidity. EXTREMITIES: Femorals are slightly diminished. There are no femoral bruits. Leg pulses are diminished. There is no pedal edema. There is no DVT or cellulitis. There is no cyanosis or clubbing. There is no calf tenderness. Capillary refill is normal. CENTRAL NERVOUS SYSTEM: The patient is conscious, awake, alert, oriented x3 with no focal deficits. PSYCHIATRIC: The patient's judgment and insight are intact. His affect is normal. DIAGNOSTIC TEST RESULTS: The patient's 24-hr intake is 1741 mL, output is 3050 mL. The patient's white count is 9200, hemoglobin is 10.9, hematocrit is 34.9, and his platelet count is 196,000. The patient's sodium is 140.8, potassium 4.5, chloride 107, CO2 26, the patient's BUN is 32, creatinine 1.67, his GFR has slightly come down to 50 mL/min, his glucose is 129, his calcium is 9.4, magnesium is 1.8. IMPRESSION: 1. HBOZM-HI-OGUTZIE SYSTOLIC HEART FAILURE. The patient had a good diuresis but his blood pressure is low. 2. HYPOTENSION. Will start the patient on midodrine. 3. DILATED CARDIOMYOPATHY WITH SEVERELY REDUCED LV EJECTION FRACTION OF 20% TO 25%. 4. NO EVIDENCE OF CORONARY ARTERY DISEASE. The patient's Lexiscan Cardiolite stress test in [facility] in December 2016 was negative for reversible ischemia with LV ejection fraction of 30% by echo in December 2016. The patient's LV ejection fraction was 20% to 25%. 5. HISTORY OF HYPERTENSION. At present blood pressure is low; systolic is 98. As mentioned earlier, will continue the patient on current medication and start the patient on midodrine. 6. OBSTRUCTIVE SLEEP APNEA ON CPAP. 7. HISTORY OF SVT WITH NO RECURRENCE. 8. HISTORY OF NONSUSTAINED VENTRICULAR TACHYCARDIA WITH NO RECURRENCE. 9. DIABETES MELLITUS TYPE 2, NON-INSULIN DEPENDENT. 10. CHRONIC KIDNEY DISEASE STAGE 3A. 11. HISTORY OF MVP NOT REPORTED ON THE ECHO OF 12/22 AT [facility]. 12. HYPERLIPIDEMIA. 13. QUESTION REASON FOR PATIENT BEING ON ELIQUIS. 14. MODERATE PULMONARY HYPERTENSION BY ECHO. The right ventricular systolic pressure is between 50-60. 15. HISTORY OF GOUT. 16. ANEMIA, MOST LIKELY IRON DEFICIENCY IN VIEW OF THE PATIENT'S MCV BEING LOW. RECOMMENDATIONS: Continue the patient on Lasix 20 mg IV q.12 h. Continue the patient on beta-selena, that is, Toprol XL 12.5 mg p.o. q.12 h. and also TWIN inhibitor. Would start the patient on midodrine to help the patient's blood pressure come up. Continue his anti-diabetic medications. As mentioned earlier, will recheck the patient's echo as an outpatient and if it is still 35% or below, then will send the patient for evaluation for AICD placement. All the above discussed with patient and with other caregiving providers on the case and management and plan for care of the patient was made in conjunction with other caregiving providers. Note: 35 minutes were spent on this patient with more than 50% of the time spent on direct patient care. Also his medications have been reviewed and medications added. Note that he continues to have the need for highly complex medical decision making. Will follow with you. Thanking you. DICTATING PHYSICIAN: DIPAK BHAKTA M.D. [id number] PHY#: [id number] ID: [id number] JOB#: [id number] ACCT: [id number] cc: >
[2017-03-08] MEDS: CYANOCOBALAMIN (VITAMIN B-12) 1,000 MCG TABLET PO SCH (18:40)
[2017-03-08] MEDS: IRON POLYSACCHARIDES COMPLEX 150 MG CAPSULE PO SCH (18:40)
[2017-03-08] MEDS: ATORVASTATIN CALCIUM 40 MG TABLET PO SCH (21:55)
[2017-03-08] MEDS: INSULIN LISPRO 100 UNIT/ML 3 ML VIAL SUBCUT PRN (23:12)
[2017-03-09 04:55] LABS: HEMATOCRIT 36.9 % (37.9-51.0); HEMOGLOBIN 11.5 g/dL (13.5-17.0); HGB HCT DIFFERENCE -2.4; MEAN CORPUSCULAR HEMOGLOBIN 23.6 pg (27.0-33.4); MEAN CORPUSCULAR HGB CONC 31.1 g/dL (32.0-36.0); MEAN CORPUSCULAR VOLUME 76 fl (80-97); RED BLOOD COUNT 4.87 10^6/uL (4.35-5.55); RED CELL DISTRIBUTION WIDTH 17.2 % (11.5-14.0); WHITE BLOOD COUNT 9.7 10^3/uL (4.0-10.5)
[2017-03-09] MEDS: LANSOPRAZOLE 30 MG TAB.RAP.DR PO SCH (05:11)
[2017-03-09 05:20] LABS: ANION GAP 9 (5-19); BLOOD UREA NITROGEN 38 mg/dL (7-20); CALCIUM 9.4 mg/dL (8.4-10.2); CARBON DIOXIDE 27 mmol/L (22-30); CHLORIDE 104 mmol/L (98-107); CREATININE RESULT 1.76 mg/dL (0.52-1.25); GLUCOSE 140 mg/dL (75-110); MAGNESIUM 1.9 mg/dL (1.6-2.3); POTASSIUM 5.4 mmol/L (3.6-5.0); SODIUM 140.2 mmol/L (137-145)
[2017-03-09] MEDS ORDERED: MIDODRINE HCL 5 MG TABLET PO SCH ×2 (06:00→11:00)
[2017-03-09] MEDS: INSULIN LISPRO 100 UNIT/ML 3 ML VIAL SUBCUT PRN (08:28)
[2017-03-09] MEDS: SITAGLIPTIN PHOSPHATE 50 MG TABLET PO SCH (08:32)
[2017-03-09] MEDS: GLIMEPIRIDE 4 MG TABLET PO SCH (08:32)
[2017-03-09] MEDS ORDERED: SPIRONOLACTONE 25 MG TABLET PO SCH (10:09)
[2017-03-09] MEDS: SPIRONOLACTONE 25 MG TABLET PO SCH (10:17)
[2017-03-09] MEDS: CHOLECALCIFEROL (D3) 1,000 UNIT TABLET PO SCH (10:20)
[2017-03-09] MEDS: APIXABAN 5 MG TABLET PO SCH (10:24)
[2017-03-09] MEDS: FUROSEMIDE INJ/PF 20 MG/2 ML SDV IV SCH (10:24)
[2017-03-09] MEDS: METOPROLOL SUCCINATE 25 MG TAB.SR.24H PO SCH (10:27)
[2017-03-09] MEDS: LISINOPRIL 5 MG TABLET PO SCH (10:27)
[2017-03-09] MEDS: ASPIRIN 81 MG TABLET, ENT COATED PO SCH (10:27)
--- NOTE | 2017-03-09 10:49 | RADIOLOGY REPORT (SQ) ---
EXAM DESCRIPTION: CHEST PA/LAT COMPLETED DATE/TIME: 03/09/2017 9:23 am REASON FOR STUDY: FU CHF COMPARISON: 01/10/2017 EXAM PARAMETERS: NUMBER OF VIEWS: two views TECHNIQUE: Digital Frontal and Lateral radiographic views of the chest acquired. RADIATION DOSE: NA LIMITATIONS: none FINDINGS: LUNGS AND PLEURA: No opacities, masses or pneumothorax. No pleural effusion. MEDIASTINUM AND HILAR STRUCTURES: No masses or contour abnormalities. HEART AND VASCULAR STRUCTURES: Heart normal size. No evidence for failure. BONES: No acute findings. HARDWARE: None in the chest. OTHER: No other significant finding. IMPRESSION: NO SIGNIFICANT RADIOGRAPHIC FINDING IN THE CHEST. TECHNICAL DOCUMENTATION: JOB ID: [id number] [employer]- All Rights Reserved
[2017-03-09 12:06] VITALS: BP 131/80
--- NOTE | 2017-03-09 13:04 | DISCHARGE SUMMARY E ---
Discharge Summary NAME: BAM MORRISON : 1950 AGE: 66Y ADMITTED: 03/07/2017 DISCHARGED: 03/09/2017 CODE STATUS: FULL CODE. PRIMARY CARE PROVIDER: RUFINA LOWRY MD ARTS MANAGER: Dr. Wills. CASE AIDE: NIRALI SERRANO M.D. FISH INSPECTOR: DR. RIVAS RELEASE AND TECHNICAL RECORDS CLERK: RACHEL COHEN M.D. DISCHARGE DIAGNOSES: Includes: 1. Acute on chronic systolic and diastolic congestive heart failure. 2. Right ventricular failure. 3. Pulmonary hypertension. 4. Diabetes mellitus type 2. 5. Gastroesophageal reflux disease. 6. Paroxysmal atrial fibrillation, currently in sinus rhythm. DISCHARGE MEDICATIONS: Include: 1. Lasix 20 mg p.o. daily (30 tablets with 0 refills). 2. Lisinopril 2.5 mg p.o. q. 12 hours (30 tablets with 0 refills). 3. Toprol XL 12.5 mg p.o. q. 12 hours (30 tablets with 0 refills). 4. Midodrine 5 mg p.o. t.i.d. (90 tablets with 0 refills). 5. Protonix 40 mg p.o. daily p.r.n. 6. Nitrostat 0.4 mg sublingually q. 5 minutes p.r.n. 7. Eliquis 5 mg p.o. b.i.d. 8. Lipitor 40 mg p.o. q. hour of sleep. 9. Vitamin D3 - 1,000 international units p.o. b.i.d. 10. Vitamin B12 - 1,000 mcg sublingually q. p.m. 11. Amaryl 10 mg p.o. daily. 12. Ferrous sulfate 1 capsule p.o. q. evening. 13. Tradjenta 5 mg p.o. q. a.m. DIET: Heart healthy, diabetic. ACTIVITY: As tolerated. HISTORY OF PRESENT ILLNESS: The patient is a 66-year-old male with a past medical history of heart failure. The patient presented to the emergency department with a chief complaint of difficulty breathing. The patient had actually been in our facility and was transferred on December 30 to [facility] for a non-STEMI. Cardiac catheterization was performed at that time without intervention. The patient has known congestive heart failure. The patient was noted to have an EF of 20%. The patient actually had a right-sided heart catheterization and noted elevated RV pressures. Upon presentation to the emergency department, the patient was found to be hypoxic, dyspneic with a work of breathing. The patient gave a 3-day history of progressively worsening shortness of breath as well as a dry cough, denied any ankle swelling. The patient states that he has had significant weight loss since he was discharged from [place], about 22 pounds, but the patient denies any nausea, vomiting, fevers, chills, no diarrhea, dysuria. The patient states that he is making every effort that he can to ensure compliance with his heart failure. The patient did diurese well with Lasix given in the emergency department and was referred to the hospitalist for admission and management. HOSPITAL COURSE: The patient was admitted to [facility]. The patient was diuresed and the patient's chest x-ray showed improvement of symptoms. The patient had excellent urine output with diuresis. The patient was started on an TWIN beta selena. Do appreciate Cardiology's input with this. The patient was also added midodrine given that he was hypotensive. The patient was noted to have an increase in his potassium and therefore, Aldactone was held. The patient will need repeat labs upon discharge. The patient appears to have been on both Tradjenta as well as Janumet. Instructed the patient did not need to be taking metformin given his renal failure and therefore, Janumet was stopped and he was continued on Tradjenta. The patient voiced understanding and is ready for discharge. DIAGNOSTIC DATA: Lab values are as follows: Hematology obtained on 03/09/2017: WBC's are 9.7, hemoglobin is 12.5, hematocrit is 36.9, platelet count is 247,000. Coagulation obtained on 03/06/2017: PT is 17.0, INR is 1.3. D-dimer is 0.68. Chemistries obtained on 03/09/2017: Sodium is 140, potassium 5.4, chloride is 104, carbon dioxide 27, BUN 38, creatinine 7.6, glucose 140, calcium is 9.4, magnesium is 1.9. Bilirubin is 0.9, AST 20, ALT is 33, alk phos 111. CK 118, CK-MB is 1.17, troponin is 0.030. Total protein is 6.6, albumin 3.6. TSH is 0.63. Chest x-ray obtained on 03/06/2017 reveals cardiomegaly with pulmonary vascular congestion. Chest x-ray obtained 03/09/2017 reveals no significant radiographic findings of the chest. EKG obtained on 03/07/2017 reveals sinus rhythm with left atrial abnormality. PHYSICAL EXAMINATION: GENERAL: On examination, the patient is a well-developed, well-nourished 66-year-old male who is awake, alert, and oriented to person, place, time, and situation. He is verbal and conversational. He does not appear to be in any acute distress. VITAL SIGNS: Temperature is 98.1, pulse 86, respirations 16, blood pressure is 131/80, oxygen saturation is 100% on room air. SKIN: Warm and dry. No rash. He is not diaphoretic. HEENT: Pupils equal, round, and reactive to light and accommodation. Conjunctivae pink. NECK: No JVD. CARDIOVASCULAR SYSTEM: Heart is regular. There is no murmur or rub. CHEST: Clear, symmetrical, unlabored. ABDOMEN: Soft, nontender, and nondistended. BACK: No CVA tenderness or sacral edema. EXTREMITIES: No clubbing, cyanosis, edema. PSYCHIATRIC: Appropriate affect, pleasant mood. DISCHARGE PLAN: The patient has a followup with his ip litigation paralegal, Dr. Wills, on Thursday as already scheduled. The patient will benefit from repeat labs to monitor his chemistries. TIME: Time spent on this discharge, including assessment, plan, physical examination, patient education, and speciality collaboration was 25 minutes. DICTATING PHYSICIAN: CHITO ANDREWS NP [id number] PHY#: [id number] ID: [id number] JOB#: [id number] ACCT: [id number] cc:JT MALCOLM M.D. CHITO ANDREWS NP > MTDD
--- NOTE | 2017-03-09 13:23 | PROGRESS NOTE E ---
Progress Note NAME: BAM MORRISON : 1950 AGE: 66Y DATE: 03/09/2017 ROOM: 309 SUBJECTIVE: The patient denies any chest pain or discomfort. There is no PND, orthopnea. There is no arrhythmia seen on the monitor. The patient states that he is on Eliquis because of irregular heartbeat and states that he was told that he had atrial fibrillation. At present, the patient is in sinus rhythm. There is no leg edema. There is no dizziness, near syncope, or syncope. There are no TIA or CVA symptoms. There is no bleeding on Eliquis. OBJECTIVE: GENERAL: On examination, the patient is well built and well nourished, in no acute distress. VITAL SIGNS: He is afebrile with a temperature of 98.1 degrees Fahrenheit, pulse is 86 beats per minute, blood pressure is 94/60, respirations 16 per minute, O2 saturations 100% on room air. HEAD: Atraumatic, normocephalic. EYES: Pupils are equal, round, regular, reactive to light and accommodation. Extraocular movements are normal. There is no conjunctival pallor. There is no scleral icterus. ENT: Negative. NECK: Supple. There is no JVD. Carotids are equal. There is no bruit. There is no lymphadenopathy. There is no goiter. There are no accessory muscles of respiration in use. Trachea is central. LUNGS: Clear to auscultation and percussion. There is no chest wall tenderness. HEART: S1 and S2 are heard. There is no S3 gallop. There is no S4 gallop. There is a systolic murmur in the left sternal border of the apex. There is no rub. ABDOMEN: Soft, nontender. There is no hepatosplenomegaly. Bowel sounds are well heard. There are no tender areas or masses. EXTREMITIES: Femorals are slightly diminished. There is no femoral bruit. Leg pulses are diminished. There is no pedal edema. There is no DVT or cellulitis. There is no cyanosis or clubbing. There is no calf tenderness. Capillary refill is normal. CENTRAL NERVOUS SYSTEM: The patient is conscious, awake, alert, oriented x3 with no focal deficits. PSYCHIATRIC: The patient's judgment and insight are intact. His affect is normal. INTAKE/OUTPUT: The patient's 24-hour intake is 1367 mL. Output is 2025 mL. DIAGNOSTIC STUDIES: The patient's chest x-ray shows that there is no congestive heart failure or infiltrates. The patient's white count is 9700, hemoglobin is 11.5, hematocrit is 36.9, platelet count is 247,000. The patient's sodium is 140.2, potassium is elevated at 5.4, chloride is 104, CO2 is 27. The patient's BUN is 38, creatinine is 1.76. GFR is reduced at 47, which is stage 3 chronic kidney disease, which is stable. The patient's glucose is 163, calcium is 9.4, magnesium is 1.9. IMPRESSION: 1. ACUTE ON CHRONIC SYSTOLIC HEART FAILURE. At present, the patient is compensated and chest x-ray and physical findings do not show any decompensated heart failure. Recommendation: Continue the patient on TWIN inhibitor and beta selena in the form of Toprol XL 12.5 mg p.o. q. 12 hours. Would recommend stopping the IV Lasix and starting the patient on Lasix 20 mg p.o. daily. Will stop the patient's spironolactone in view of the patient's potassium being high. 2. HYPOTENSION. The patient is on midodrine. Blood pressure is in the low 90s, but the patient has been able to get to his medications. 3. DILATED CARDIOMYOPATHY WITH SEVERELY REDUCED LV EJECTION FRACTION OF 20% TO 25%. Will get a repeat echocardiogram in 3 months from his echocardiogram, and if it is still 35% or below, will refer the patient for an AICD placement. 4. NO EVIDENCE OF CORONARY ARTERY DISEASE. The patient's Lexiscan Cardiolite stress test due in December of 2016 was negative for reversible ischemia with LV ejection fraction of 30% by echo in December of 2016. At that time, the patient's LV ejection fraction was 20-25% by echo. 5. HISTORY OF PAROXYSMAL ATRIAL FIBRILLATION ON ELIQUIS. The patient remains in sinus rhythm with no recurrence. 6. HISTORY OF HYPERTENSION. At present, blood pressure is low. Systolic is 94 systolic. Continue the patient on midodrine. 7. OBSTRUCTIVE SLEEP APNEA ON CPAP. 8. HISTORY OF SVT WITH NO RECURRENCE. 9. HISTORY OF NONSUSTAINED VENTRICULAR TACHYCARDIA WITH NO RECURRENCE. 10. DIABETES MELLITUS TYPE 2, [id number]. 11. CHRONIC KIDNEY DISEASE STAGE 3. 12. HISTORY OF MITRAL VALVE PROLAPSE, NOT REPORTED ON THE ECHO 12/22 AT [facility]. 13. HYPERLIPIDEMIA. 14. MODERATE PULMONARY HYPERTENSION BY ECHO. Right ventricular systolic pressure is 50-60. 15. HISTORY OF GOUT. 16. ANEMIA, MOST LIKELY IRON DEFICIENCY. Hemoglobin much improved. It is 11.5. RECOMMENDATIONS: As mentioned earlier, will stop the patient's IV Lasix and put the patient on Lasix 20 mg p.o. daily. Continue the patient on beta selena and TWIN inhibitor. As mentioned earlier, will stop the spironolactone in view of the patient's potassium being high and with the patient having renal failure. Also, would recommend that the patient be on *------* medications. Continue the patient on atorvastatin for his hyperlipidemia. Continue iron for his iron deficiency. Continue Prevacid. Continue midodrine. Continue sitagliptin phosphate for his diabetes 50 mg p.o. q. a.m. NOTE: Forty five minutes spent on the patient with more than 50% of the time spent in direct patient care. His medications have been reviewed and medications have been adjusted and some have been stopped. Discussed with the caregiving providers on the case and formulated a care plan extending to outpatient care. As mentioned earlier, the patient has an appointment with my partner, Dr. Wills, on 03/12/2017 at 3:30 p.m. At that time, will order repeat echocardiogram and subsequently, depending on the echo EF findings, will schedule the patient for an AICD placement in [facility]. All of the above discussed with the patient. Note that the patient is a FULL CODE and his is the surrogate healthcare decision maker. Will sign off the case. The patient has my cell phone number to call me if there should be any problems. DICTATING PHYSICIAN: DIPAK BHAKTA M.D. [id number] PHY#: [id number] ID: [id number] JOB#: [id number] ACCT: [id number] cc: >
[2017-03-10] MEDS ORDERED: FUROSEMIDE 20 MG TABLET PO SCH (10:00)
== END 2017-03-09 14:18 | disposition home or self-care (01) | DRG 291 ==
LOC: ER 15:02 → INTOOBSV 20:07 → UNDOADMOB 20:07 → EH 20:07 → 3N 03-07 00:35 → OBSVTOIN 03-07 10:08
PROVIDERS: ADMIT Family Medicine; ATTEND Family Medicine
PROC: 5A09357 Assistance with Respiratory Ventilation, Less than 24 Consecutive Hours, Continuous Positive Airway Pressure (ICD-10-PCS; principal; 2017-03-07)
DX: I13.0 Hypertensive heart and chronic kidney disease with heart failure and stage 1 through stage 4 chronic kidney disease, or unspecified chronic kidney disease (principal); I50.43 Acute on chronic combined systolic (congestive) and diastolic (congestive) heart failure; E11.22 Type 2 diabetes mellitus with diabetic chronic kidney disease; I48.0 Paroxysmal atrial fibrillation; N18.3 Chronic kidney disease, stage 3 (moderate); K21.9 Gastro-esophageal reflux disease without esophagitis; G47.33 Obstructive sleep apnea (adult) (pediatric); M19.90 Unspecified osteoarthritis, unspecified site; I42.9 Cardiomyopathy, unspecified; D50.9 Iron deficiency anemia, unspecified; I27.2 Other secondary pulmonary hypertension; Z79.02 Long term (current) use of antithrombotics/antiplatelets; Z82.49 Family history of ischemic heart disease and other diseases of the circulatory system; I25.2 Old myocardial infarction; Z83.3 Family history of diabetes mellitus; Z86.010 Personal history of colon polyps; Z79.899 Other long term (current) drug therapy
CPT/HCPCS: 36415; 71010; 71020; 80048; 80053; 82550; 82553; 82962; 83735; 83880; 84443; 84484; 85025; 85027; 85379; 85610; 93005; 93010; 94660; 96374; 99285; G0378; J1815; J1940; J3490

== ENCOUNTER → 2017-04-02 | Outpatient (CLI) | payer MEDICARE, OTHER ==
[2017-04-02 08:51] LABS: ANION GAP 11 (5-19); BLOOD UREA NITROGEN 34 mg/dL (7-20); CALCIUM 9.7 mg/dL (8.4-10.2); CARBON DIOXIDE 25 mmol/L (22-30); CHLORIDE 105 mmol/L (98-107); CREATININE RESULT 1.71 mg/dL (0.52-1.25); GLUCOSE 125 mg/dL (75-110); SODIUM 141.4 mmol/L (137-145)
== END ==
LOC: OD 07:28
PROVIDERS: ATTEND Internal Medicine
DX: R97.20 Elevated prostate specific antigen [PSA] (principal)
CPT/HCPCS: 36415; 80048; 84153

== ENCOUNTER 2017-04-08 15:28 | Inpatient (IN) | payer OTHER, MEDICARE ==
--- NOTE | 2017-04-08 16:05 | ER Document Report ---
ED Medical Screen (RME) - General Chief Complaint: Shortness Of Breath Stated Complaint: SHORTNESS OF BREATH Time Seen by Provider: 04/08/17 16:03 Notes: Patient reports several days of shortness of breath and leg swelling bilaterally. He states he does have a history of congestive heart failure. He denies any history of COPD. TRAVEL OUTSIDE OF THE [place] IN LAST 30 DAYS: No - Related Data Allergies/Adverse Reactions: No Known Allergies Allergy (Verified 01/10/17 12:01) Past Medical History - Past Medical History Cardiac Medical History: Reports: Hx Congestive Heart Failure - Systolic; ejection fraction 2017 of approximately 20%., Hx Heart Attack - [place] December 2016, Hx Hypercholesterolemia, Hx Hypertension Denies: Hx Atrial Fibrillation, Hx DVT, Hx Pulmonary Embolism Pulmonary Medical History: Reports: Hx Bronchitis, Hx Sleep Apnea - Nasal CPAP; uncertain settings. Denies: Hx Asthma, Hx COPD Neurological Medical History: Denies: Hx Seizures Endocrine Medical History: Reports: Hx Diabetes Mellitus Type 2. Denies: Hx Diabetes Mellitus Type 1, Hx Hyperthyroidism, Hx Hypothyroidism Renal/ Medical History: Reports: Hx Renal Insufficiency. Denies: Hx Peritoneal Dialysis GI Medical History: Reports: Hx Gastroesophageal Reflux Disease, Hx Colonoscopy , Hx Endoscopy. Denies: Hx Cirrhosis Musculoskeltal Medical History: Reports Hx Arthritis - RIGHT knee per x rays, Reports Hx Musculoskeletal Deformity - Back pain for 4-5 years Psychiatric Medical History: Denies: Hx Depression Infectious Medical History: Denies: Hx C-Diff, Hx MRSA Past Surgical History: Reports: Hx Orthopedic Surgery - right rotator cuff - Immunizations Hx Diphtheria, Pertussis, Tetanus Vaccination: Yes Physical Exam - Vital signs Vitals: Temp Pulse Resp BP Pulse Ox 97.5 F 104 H 22 H 113/79 99 04/08/17 15:39 04/08/17 15:39 04/08/17 15:39 04/08/17 15:39 04/08/17 15:39 Course - Vital Signs Vital signs: Temp Pulse Resp BP Pulse Ox 97.5 F 104 H 22 H 113/79 99 04/08/17 15:39 04/08/17 15:39 04/08/17 15:39 04/08/17 15:39 04/08/17 15:39
[2017-04-08 16:34] LABS: ABSOLUTE BASOPHILS # (AUTO) 0.1 10^3/uL (0.0-0.2); ABSOLUTE EOSINOPHILS # (AUTO) 0.3 10^3/uL (0.0-0.6); ABSOLUTE LYMPHOCYTES (AUTO) 1.3 10^3/uL (0.5-4.7); ABSOLUTE MONOCYTES (AUTO) 0.7 10^3/uL (0.1-1.4); ABSOLUTE NEUT (AUTO) 5.4 10^3/uL (1.7-8.2); BASOPHILS % (AUTO) 1.8 % (0-2); EOSINOPHILS % (AUTO) 3.2 % (0-6); HEMATOCRIT 35.1 % (37.9-51.0); HEMOGLOBIN 11.2 g/dL (13.5-17.0); HGB HCT DIFFERENCE -1.5; LYMPHOCYTES % (AUTO) 17.3 % (13-45); MEAN CORPUSCULAR HEMOGLOBIN 24.6 pg (27.0-33.4); MEAN CORPUSCULAR VOLUME 77 fl (80-97); MONOCYTES % (AUTO) 8.9 % (3-13); RED BLOOD COUNT 4.56 10^6/uL (4.35-5.55); RED CELL DISTRIBUTION WIDTH 19.7 % (11.5-14.0); SEGMENTED NEUTROPHILS % (AUTO) 68.8 % (42-78); WHITE BLOOD COUNT 7.8 10^3/uL (4.0-10.5)
--- NOTE | 2017-04-08 16:46 | RADIOLOGY REPORT (SQ) ---
EXAM DESCRIPTION: CHEST SINGLE VIEW COMPLETED DATE/TIME: 04/08/2017 4:38 pm REASON FOR STUDY: sob COMPARISON: 03/09/2017 EXAM PARAMETERS: NUMBER OF VIEWS: One view. TECHNIQUE: Single frontal radiographic view of the chest acquired. RADIATION DOSE: NA LIMITATIONS: None. FINDINGS: LUNGS AND PLEURA: No opacities, masses or pneumothorax. No pleural effusion. MEDIASTINUM AND HILAR STRUCTURES: No masses. Contour normal. HEART AND VASCULAR STRUCTURES: Cardiac size is stable. There is mild pulmonary vascular distention a nd interstitial prominence compared to the prior study. BONES: No acute findings. HARDWARE: None in the chest. OTHER: No other significant finding. IMPRESSION: Mild pulmonary vascular congestion & interstitial prominence comparison the prior study may suggest underlying edema and/or atypical infection. No focal infiltrate. TECHNICAL DOCUMENTATION: JOB ID: [id number]
[2017-04-08 16:54] LABS: ALANINE AMINOTRANSFERASE 81 U/L (21-72); ALBUMIN 3.4 g/dL (3.5-5.0); ALKALINE PHOSPHATASE 194 U/L (38-126); ANION GAP 14 (5-19); ASPARTATE AMINO TRANSFERASE 64 U/L (17-59); BILIRUBIN,DIRECT 0.5 mg/dL (0.0-0.4); BILIRUBIN,TOTAL 1.5 mg/dL (0.2-1.3); BLOOD UREA NITROGEN 33 mg/dL (7-20); CALCIUM 9.7 mg/dL (8.4-10.2); CARBON DIOXIDE 24 mmol/L (22-30); CHLORIDE 103 mmol/L (98-107); CREATININE RESULT 1.76 mg/dL (0.52-1.25); GLUCOSE 235 mg/dL (75-110); POTASSIUM 4.3 mmol/L (3.6-5.0); SODIUM 140.5 mmol/L (137-145); TOTAL PROTEIN 6.1 g/dL (6.3-8.2)
[2017-04-08 17:08] LABS: TROPONIN I < 0.012 ng/mL
--- NOTE | 2017-04-08 17:37 | ER Document Report ---
ED Respiratory Problem - General Chief Complaint: Shortness Of Breath Stated Complaint: SHORTNESS OF BREATH Time Seen by Provider: 04/08/17 16:03 Mode of Arrival: Ambulatory Information source: Patient TRAVEL OUTSIDE OF THE [place] IN LAST 30 DAYS: No - HPI Patient complains to provider of: Short of breath Onset: Other - 2 days Duration: Worse/persistent Quality of pain: No pain Short of Breath: Moderate Chest pain/discomfort: Tightness Cough: Nonproductive Associated symptoms: Cough, Extertional dyspnea, Orthopnea, Short of breath Similar symptoms previously: Yes Recently seen / treated by doctor: Yes Notes: Patient is a 66-year-old male with a history of congestive heart failure who presents to the emergency room complaining of 3 day history of worsening shortness of breath with lower extremity swelling, he denies any chest pain, is a nonproductive cough, no fever, he does report dyspnea on exertion as well - Related Data Allergies/Adverse Reactions: No Known Allergies Allergy (Verified 01/10/17 12:01) Home Medications: Current Home Medications Apixaban [Eliquis 5 mg Tablet] 5 mg PO Q12 04/08/17 [History] Atorvastatin Calcium [Lipitor 40 mg Tablet] 40 mg PO QHS 04/08/17 [History] Cholecalciferol (Vitamin D3) [Vitamin D3 1000 Unit Tablet] 1,000 mg PO Q12 04/08 [History] Cyanocobalamin (Vitamin B-12) [Vitamin B-12 1000 mcg Tablet] 1,000 mcg SL QHS [History] Dextrose [Glucose] 1 tab PO PRN PRN 04/08/17 [History] Furosemide [Lasix 20 mg Tablet] 20 mg PO QPM 04/08/17 [History] Glimepiride [Amaryl 4 mg Tablet] 2 mg PO DAILY 04/08/17 [History] Hum Insulin NPH/Reg Insulin Hm [Novolin 70-30 100 Unit/ml Vial] 10 units SQ MEALS PRN 04/08/17 [History] Iron Aspgly&Ps/C/B12/FA/Ca/Suc [Ferrex 150 Forte Plus Capsule] 1 cap PO QHS 10/24 [History] Linagliptin [Tradjenta] 5 mg PO DAILY 04/08/17 [History] Nitroglycerin [Nitrostat 0.4 mg (1/150 Gr) Tabs 25/Bottle] 1 tab SL Q5MP PRN 10/24 [History] Pantoprazole Sodium [Protonix] 40 mg PO DAILYP PRN 04/08/17 [History] Tramadol HCl [Ultram 50 mg Tablet] 50 mg PO Q8 04/08/17 [History] Past Medical History - General Information source: Patient - Social History Smoking Status: Never Smoker Chew tobacco use (# tins/day): No Frequency of alcohol use: None Drug Abuse: None Family History: Reviewed & Not Pertinent, DM, Hypertension Patient has suicidal ideation: No Patient has homicidal ideation: No - Past Medical History Cardiac Medical History: Reports: Hx Congestive Heart Failure - Systolic; ejection fraction 2017 of approximately 20%., Hx Heart Attack - [place] December 2016, Hx Hypercholesterolemia, Hx Hypertension Denies: Hx Atrial Fibrillation, Hx DVT, Hx Pulmonary Embolism Pulmonary Medical History: Reports: Hx Bronchitis, Hx Sleep Apnea - Nasal CPAP; uncertain settings. Denies: Hx Asthma, Hx COPD Neurological Medical History: Denies: Hx Seizures Endocrine Medical History: Reports: Hx Diabetes Mellitus Type 2. Denies: Hx Diabetes Mellitus Type 1, Hx Hyperthyroidism, Hx Hypothyroidism Renal/ Medical History: Reports: Hx Renal Insufficiency. Denies: Hx Peritoneal Dialysis GI Medical History: Reports: Hx Gastroesophageal Reflux Disease, Hx Colonoscopy , Hx Endoscopy. Denies: Hx Cirrhosis Musculoskeltal Medical History: Reports Hx Arthritis - RIGHT knee per x rays, Reports Hx Musculoskeletal Deformity - Back pain for 4-5 years Psychiatric Medical History: Denies: Hx Depression Infectious Medical History: Denies: Hx C-Diff, Hx MRSA Past Surgical History: Reports: Hx Orthopedic Surgery - right rotator cuff - Immunizations Hx Diphtheria, Pertussis, Tetanus Vaccination: Yes Hx Pneumococcal Vaccination: 11/05/13 Review of Systems - Review of Systems Constitutional: No symptoms reported EENT: No symptoms reported Cardiovascular: See HPI Respiratory: See HPI Gastrointestinal: No symptoms reported Genitourinary: No symptoms reported Male Genitourinary: No symptoms reported Musculoskeletal: No symptoms reported Skin: No symptoms reported Hematologic/Lymphatic: No symptoms reported Neurological/Psychological: No symptoms reported -: Yes All other systems reviewed and negative Physical Exam - Vital signs Vitals: Temp Pulse Resp BP Pulse Ox 97.5 F 104 H 22 H 113/79 99 04/08/17 15:39 04/08/17 15:39 04/08/17 15:39 04/08/17 15:39 04/08/17 15:39 Interpretation: Normal - General General appearance: Appears well, Alert - HEENT Head: Normocephalic, Atraumatic Eyes: Normal Pupils: PERRL - Respiratory Respiratory status: No respiratory distress Chest status: Nontender Breath sounds: Normal Chest palpation: Normal - Cardiovascular Rhythm: Regular Heart sounds: Normal auscultation Murmur: No - Abdominal Inspection: Normal Distension: No distension Bowel sounds: Normal Tenderness: Nontender Organomegaly: No organomegaly - Back Back: Normal, Nontender - Extremities General upper extremity: Normal inspection, Nontender, Normal color, Normal ROM , Normal temperature General lower extremity: Normal inspection, Nontender, Edema, Normal color, Normal ROM, Normal temperature. No: Susan's sign - Neurological Neuro grossly intact: Yes Cognition: Normal Orientation: AAOx4 Doole Coma Scale Eye Opening: Spontaneous Elen Coma Scale Verbal: Oriented Doole Coma Scale Motor: Obeys Commands Doole Coma Scale Total: 15 Speech: Normal Motor strength normal: LUE, RUE, LLE, RLE Sensory: Normal - Psychological Associated symptoms: Normal affect, Normal mood - Skin Skin Temperature: Warm Skin Moisture: Dry Skin Color: Normal Course - Re-evaluation Re-evalutation: 04/08/17 19:37 Patient's workup in the emergency room consistent with CHF exacerbation, at rest he does not appear to be in any distress, however he was ambulated in the department with pulse ox and had significant hypoxia with reported symptoms of dyspnea on exertion, therefore patient was discussed with the hospitalist service who agrees to admit for further evaluation and treatment - Vital Signs Vital signs: Temp Pulse Resp BP Pulse Ox 97.5 F 104 H 22 H 113/79 99 04/08/17 15:39 04/08/17 15:39 04/08/17 15:39 04/08/17 15:39 04/08/17 15:39 - Laboratory Result Diagrams: 04/08/17 16:17 04/08/17 16:17 Laboratory results interpreted by me: 04/08/17 04/08/17 04/08/17 16:17 16:17 16:17 Hgb 11.2 L Hct 35.1 L MCV 77 L MCH 24.6 L RDW 19.7 H BUN 33 H Creatinine 1.76 H Est GFR ( Amer) 47 L Est GFR (Non-Af Amer) 39 L Glucose 235 H Total Bilirubin 1.5 H Direct Bilirubin 0.5 H AST 64 H ALT 81 H Alkaline Phosphatase 194 H NT-Pro-B Natriuret Pep 66041 H Total Protein 6.1 L Albumin 3.4 L - Diagnostic Test Radiology reviewed: Image reviewed, Reports reviewed - EKG Interpretation by Me EKG shows normal: Sinus rhythm Rate: Tachycardia - Transfer of Care Care transferred to [facility] provider: Dr Magana Discharge - Discharge Clinical Impression: Acute on chronic systolic (congestive) heart failure Condition: Fair Disposition: ADMITTED INPATIENT Admitting Provider: Hospitalist Unit Admitted: [facility]
[2017-04-08] MEDS ORDERED: FUROSEMIDE 40 MG TABLET PO ONE (17:48)
[2017-04-08] MEDS ORDERED: ONDANSETRON HCL INJ/PF 4 MG/2 ML SDV IV PRN (18:23)
[2017-04-08] MEDS ORDERED: ONDANSETRON 4 MG TAB.RAPDIS PO PRN (18:23)
[2017-04-08] MEDS ORDERED: IPRATROPIUM/ALBUTEROL 0.5-2.5 MG/3 ML AMPUL NEB PRN (18:23)
[2017-04-08] MEDS ORDERED: NITROGLYCERIN 0.4 MG/TAB 25 TAB/BOTTLE SL PRN (18:30)
[2017-04-08] MEDS ORDERED: GLUCAGON,HUMAN RECOMB 1 MG INJ IM PRN (18:30)
[2017-04-08] MEDS ORDERED: DEXTROSE 50%-WATER 25 GM/50 ML DISP.SYRIN IV PRN ×2 (18:30)
[2017-04-08] MEDS ORDERED: DEXTROSE 40% GEL 15 GM TUBE PO PRN ×2 (18:30)
[2017-04-08] MEDS ORDERED: LANSOPRAZOLE 30 MG TAB.RAP.DR PO PRN (18:39)
--- NOTE | 2017-04-08 18:45 | PDOC H&P ---
History of Present Illness Admission Date/PCP: 04/08/17 18:04 RUFINA LOWRY MD Patient complains of: Shortness of breath History of Present Illness: BAM MORRISON is a 66 year old male with a history of chronic congestive heart failure presents with acute exacerbation. He has had 3 day history of shortness of breath, orthopnea, PND as well as dyspnea on exertion. He denies having any chest pain or palpitations. He does have significant lower extremity edema. He reports that he has been compliant with his dietary restrictions. He also reports his blood sugars have been somewhat elevated in the 200s. Past Medical History Cardiac Medical History: Reports: Congestive Heart Failure - Systolic; ejection fraction 2017 of approximately 20%., Myocardial Infarction - [place] December 2016, Hyperlipidema, Hypertension Denies: Atrial Fibrillation, DVT, Pulmonary Embolism Pulmonary Medical History: Reports: Bronchitis, Sleep Apnea - Nasal CPAP; uncertain settings. Denies: Asthma, Chronic Obstructive Pulmonary Disease (COPD) Neurological Medical History: Denies: Seizures Endocrine Medical History: Reports: Diabetes Mellitus Type 2 Denies: Diabetes Mellitus Type 1 Renal/ Medical History: Reports: Chronic Kidney Disease GI Medical History: Reports: Gastroesophageal Reflux Disease Denies: Cirrhosis Musculoskeltal Medical History: Reports: Arthritis - RIGHT knee per x rays Psychiatric Medical History: Reports: None Denies: Depression Hematology: Reports: Anemia - Followed by Dr. Wilson; recent total GI workup. Infectious Medical History: Denies: Clostridium Difficile, Methicillin-Resistant Staph Aureus Past Surgical History Past Surgical History: Reports: Orthopedic Surgery - right rotator cuff Social History Information Source: Patient Lives with: Spouse/Significant other Smoking Status: Never Smoker Frequency of Alcohol Use: None Hx Recreational Drug Use: No Drugs: None Hx Prescription Drug Abuse: No - Advance Directive Resuscitation Status: Full Code Surrogate healthcare decision maker:: Family History Family History: DM, Hypertension Parental Family History Reviewed: Yes Children Family History Reviewed: No Sibling(s) Family History Reviewed.: No Medication/Allergy Home Medications: Apixaban [Eliquis 5 mg Tablet] 5 mg PO BID 03/06/17 Atorvastatin Calcium [Lipitor 40 mg Tablet] 40 mg PO QHS 03/06/17 Cholecalciferol (Vitamin D3) [Vitamin D3 1000 Unit Tablet] 1,000 units PO BID Cyanocobalamin (Vitamin B-12) [Vitamin B-12] 1,000 mcg SL QPM 03/06/17 Glimepiride [Amaryl 4 mg Tablet] 2 mg PO DAILY 03/06/17 Iron Aspgly&Ps/C/B12/FA/Ca/Suc [Ferrex 150 Forte Plus Capsule] 1 cap PO QPM Linagliptin [Tradjenta] 5 mg PO QAM 03/06/17 Nitroglycerin [Nitrostat] 0.4 mg SL Q5M 03/06/17 Pantoprazole Sodium [Protonix] 40 mg PO DAILYP PRN 03/06/17 Furosemide [Lasix 20 mg Tablet] 20 mg PO DAILY #30 tablet 03/09/17 Lisinopril [Prinivil 5 mg Tablet] 2.5 mg PO Q12 #30 tablet 03/09/17 Metoprolol Succinate [Toprol Xl 25 mg Tab.sr] 12.5 mg PO Q12 #30 tab.sr.24h 11/21 Midodrine HCl [Proamatine 5 mg Tablet] 5 mg PO .TID@0600,1100,1500 #90 tablet Allergies/Adverse Reactions: No Known Allergies Allergy (Verified 01/10/17 12:01) Review of Systems Constitutional: PRESENT: weight gain. ABSENT: chills, fever(s), headache(s) Eyes: ABSENT: visual disturbances Cardiovascular: PRESENT: as per HPI, dyspnea on exertion, edema, orthropnea. ABSENT: chest pain, palpitations Respiratory: PRESENT: dyspnea. ABSENT: cough, hemoptysis, sputum Gastrointestinal: ABSENT: abdominal pain, constipation, diarrhea, hematemesis, hematochezia, nausea, vomiting Genitourinary: ABSENT: dysuria, hematuria Musculoskeletal: ABSENT: joint swelling Integumentary: ABSENT: rash, wounds Neurological: ABSENT: abnormal gait, abnormal speech, confusion, dizziness, focal weakness, syncope Psychiatric: ABSENT: anxiety, depression Endocrine: ABSENT: cold intolerance, heat intolerance, polydipsia, polyuria Hematologic/Lymphatic: ABSENT: easy bleeding, easy bruising Physical Exam Vital Signs: Temp Pulse Resp BP Pulse Ox 97.5 F 104 H 22 H 113/79 99 04/08/17 15:39 04/08/17 15:39 04/08/17 15:39 04/08/17 15:39 04/08/17 15:39 General appearance: PRESENT: no acute distress, well-developed, well-nourished Head exam: PRESENT: atraumatic, normocephalic Eye exam: PRESENT: conjunctiva pink, EOMI, PERRLA. ABSENT: scleral icterus Ear exam: PRESENT: normal external ear exam Mouth exam: PRESENT: moist, tongue midline Neck exam: ABSENT: carotid bruit, JVD, lymphadenopathy, thyromegaly Respiratory exam: PRESENT: rales - basilar rales. ABSENT: rhonchi, wheezes Cardiovascular exam: PRESENT: gallop, RRR. ABSENT: diastolic murmur, rubs, systolic murmur Pulses: PRESENT: normal dorsalis pedis pul GI/Abdominal exam: PRESENT: normal bowel sounds, soft. ABSENT: distended, guarding, mass, organolmegaly, rebound, tenderness Rectal exam: PRESENT: deferred Extremities exam: PRESENT: pedal edema, +2 edema. ABSENT: calf tenderness, clubbing Neurological exam: PRESENT: alert, awake, oriented to person, oriented to place , oriented to time, oriented to situation, CN II-XII grossly intact. ABSENT: motor sensory deficit Psychiatric exam: PRESENT: appropriate affect Skin exam: PRESENT: dry, intact, warm. ABSENT: cyanosis, rash Results Impressions: Chest X-Ray 04/08/17 16:03 IMPRESSION: Mild pulmonary vascular congestion & interstitial prominence comparison the prior study may suggest underlying edema and/or atypical infection. No focal infiltrate. Assessment & Plan - Diagnosis (1) Acute on chronic congestive heart failure Qualifiers: Congestive heart failure type: systolic Qualified Code(s): I50.23 - Acute on chronic systolic (congestive) heart failure Is this a current diagnosis for this admission?: YesPlan: the patient has worsening of the chf. will give iv lasix, check serial cardiac enzymes. (2) CKD (chronic kidney disease), stage III Is this a current diagnosis for this admission?: YesPlan: has chronic renal failure. will watch closely as we give iv lasix (3) Paroxysmal a-fib Is this a current diagnosis for this admission?: YesPlan: currently in nsr (4) Anemia of chronic disease Is this a current diagnosis for this admission?: Yes (5) Diabetes mellitus type 2 in nonobese Is this a current diagnosis for this admission?: YesPlan: cover with sliding scale insulin (6) Hypotension Qualifiers: Hypotension type: unspecified hypotension type Qualified Code(s): I95.9 - Hypotension, unspecified Is this a current diagnosis for this admission?: YesPlan: continue with midodrin (8) Anticoagulated Is this a current diagnosis for this admission?: YesPlan: continue with eliquis (9) Obstructive sleep apnea Is this a current diagnosis for this admission?: YesPlan: cont with CPAP - Time Time Spent: 50 to 70 Minutes - Inpatient Certification Medical Necessity: Need Close Monitoring Due to Risk of Patient Decompensation
--- NOTE | 2017-04-08 19:12 | EKG REPORT ---
SEVERITY:- ABNORMAL ECG - SINUS TACHYCARDIA LEFT ATRIAL ABNORMALITY LEFT ANTERIOR FASCICULAR BLOCK ABNRM R PROG, CONSIDER ASMI OR LEAD PLACEMENT NONSPECIFIC T ABNORMALITIES, LATERAL LEADS BORDERLINE PROLONGED QT INTERVAL : Confirmed by: Alfie López MD 08-Apr-2017 19:10:59
[2017-04-08 19:27] LABS: TROPONIN I 0.014 ng/mL
[2017-04-08] MEDS: ATORVASTATIN CALCIUM 40 MG TABLET PO SCH (21:42)
[2017-04-08] MEDS: FUROSEMIDE INJ/PF 40 MG/4 ML SDV IV SCH (21:42)
[2017-04-08] MEDS: METOPROLOL SUCCINATE 25 MG TAB.SR.24H PO SCH (21:43)
[2017-04-08] MEDS: APIXABAN 5 MG TABLET PO SCH (21:43)
[2017-04-08] MEDS: LISINOPRIL 5 MG TABLET PO SCH (21:49)
[2017-04-08] MEDS: FAMOTIDINE 20 MG TABLET PO SCH (21:49)
[2017-04-08] MEDS: INSULIN LISPRO 100 UNIT/ML 3 ML VIAL SUBCUT PRN (22:34)
[2017-04-09 01:33] LABS: CREATINE KINASE MB 0.88 ng/mL (<4.55); TROPONIN I 0.018 ng/mL
[2017-04-09] MEDS: MIDODRINE HCL 5 MG TABLET PO SCH ×3 (05:20→14:49)
[2017-04-09 06:53] LABS: HEMATOCRIT 35.8 % (37.9-51.0); HEMOGLOBIN 10.9 g/dL (13.5-17.0); HGB HCT DIFFERENCE -3.1; MEAN CORPUSCULAR HEMOGLOBIN 23.8 pg (27.0-33.4); MEAN CORPUSCULAR HGB CONC 30.5 g/dL (32.0-36.0); MEAN CORPUSCULAR VOLUME 78 fl (80-97); RED BLOOD COUNT 4.59 10^6/uL (4.35-5.55); RED CELL DISTRIBUTION WIDTH 20.1 % (11.5-14.0); WHITE BLOOD COUNT 7.9 10^3/uL (4.0-10.5)
[2017-04-09 07:12] LABS: ANION GAP 12 (5-19); BLOOD UREA NITROGEN 36 mg/dL (7-20); CALCIUM 9.6 mg/dL (8.4-10.2); CARBON DIOXIDE 27 mmol/L (22-30); CHLORIDE 105 mmol/L (98-107); CREATINE KINASE 59 U/L (55-170); CREATININE RESULT 1.87 mg/dL (0.52-1.25); GLUCOSE 149 mg/dL (75-110)
[2017-04-09 07:19] LABS: CREATINE KINASE MB 0.85 ng/mL (<4.55); TROPONIN I 0.025 ng/mL
[2017-04-09] MEDS ORDERED: (PENDING PHARMACY ID) (Linagliptin [Tradjenta] 5 MG) PO SCH (08:00)
[2017-04-09] MEDS ORDERED: ONDANSETRON HCL INJ/PF 4 MG/2 ML SDV IV PRN (08:18)
[2017-04-09] MEDS ORDERED: ONDANSETRON 4 MG TAB.RAPDIS PO PRN (08:18)
[2017-04-09] MEDS: SITAGLIPTIN PHOSPHATE 50 MG TABLET PO SCH (08:37)
[2017-04-09] MEDS ORDERED: ENOXAPARIN SODIUM INJ 40 MG/0.4 ML DISP.SYRIN SUBCUT SCH (10:00)
[2017-04-09] MEDS: CHOLECALCIFEROL (D3) 1,000 UNIT TABLET PO SCH ×2 (10:46→17:11)
[2017-04-09] MEDS: FUROSEMIDE INJ/PF 40 MG/4 ML SDV IV SCH ×2 (10:49→21:51)
[2017-04-09] MEDS: APIXABAN 5 MG TABLET PO SCH ×2 (10:50→21:51)
[2017-04-09] MEDS: LISINOPRIL 5 MG TABLET PO SCH ×2 (11:25→22:57)
[2017-04-09] MEDS: METOPROLOL SUCCINATE 25 MG TAB.SR.24H PO SCH ×2 (11:25→22:57)
[2017-04-09] MEDS: FAMOTIDINE 20 MG TABLET PO SCH ×2 (11:25→22:19)
--- NOTE | 2017-04-09 12:18 | PDOC PROGRESS REPORT ---
Subjective Progress Note for:: 04/09/17 Subjective:: Denies any complaints Physical Exam Vital Signs: Temp Pulse Resp BP Pulse Ox 97.4 F 88 16 122/77 97 04/09/17 07:32 04/09/17 09:23 04/09/17 09:23 04/09/17 07:32 04/09/17 09:23 Intake & Output 04/08/17 04/09/17 04/10/17 06:59 06:59 06:59 Intake Total 610 Output Total 1425 Balance -815 Weight 81.3 kg General appearance: PRESENT: no acute distress Eye exam: PRESENT: conjunctiva pink. ABSENT: scleral icterus Mouth exam: PRESENT: moist, tongue midline Neck exam: ABSENT: carotid bruit, JVD, lymphadenopathy, thyromegaly Respiratory exam: PRESENT: decreased breath sounds - Decreased sounds in the bases. ABSENT: rales, rhonchi, wheezes Cardiovascular exam: PRESENT: RRR. ABSENT: diastolic murmur, rubs, systolic murmur GI/Abdominal exam: PRESENT: normal bowel sounds, soft. ABSENT: distended, guarding, mass, organolmegaly, rebound, tenderness Extremities exam: PRESENT: pedal edema, +1 edema. ABSENT: calf tenderness, clubbing Neurological exam: PRESENT: alert, awake, oriented to person, oriented to place , oriented to time, oriented to situation, CN II-XII grossly intact. ABSENT: motor sensory deficit Psychiatric exam: PRESENT: appropriate affect Skin exam: PRESENT: dry, intact, warm. ABSENT: cyanosis, rash Results Laboratory Results: 04/09/17 06:36 04/09/17 06:36 04/09/17 04/09/17 06:36 06:36 WBC 7.9 RBC 4.59 Hgb 10.9 L Hct 35.8 L MCV 78 L MCH 23.8 L MCHC 30.5 L RDW 20.1 H Plt Count 315 Sodium 144.0 Potassium 4.0 Chloride 105 Carbon Dioxide 27 Anion Gap 12 BUN 36 H Creatinine 1.87 H Est GFR ( Amer) 44 L Est GFR (Non-Af Amer) 36 L Glucose 149 H Calcium 9.6 Magnesium 2.0 04/08/17 04/08/17 04/09/17 18:48 18:48 00:34 Creatine Kinase 70 57 CK-MB (CK-2) 1.00 Troponin I 0.014 04/09/17 04/09/17 04/09/17 00:34 06:36 06:36 Creatine Kinase 59 CK-MB (CK-2) 0.88 0.85 Troponin I 0.018 0.025 Impressions: Chest X-Ray 04/08/17 16:03 IMPRESSION: Mild pulmonary vascular congestion & interstitial prominence comparison the prior study may suggest underlying edema and/or atypical infection. No focal infiltrate. Assessment & Plan - Diagnosis (1) Acute on chronic congestive heart failure Qualifiers: Congestive heart failure type: systolic Qualified Code(s): I50.23 - Acute on chronic systolic (congestive) heart failure Is this a current diagnosis for this admission?: YesPlan: Continue with iv lasix. Enzymes have been negative. (2) CKD (chronic kidney disease), stage III Is this a current diagnosis for this admission?: YesPlan: has chronic renal failure. will watch closely as we give iv lasix (3) Paroxysmal a-fib Is this a current diagnosis for this admission?: YesPlan: currently in nsr (4) Anemia of chronic disease Is this a current diagnosis for this admission?: Yes (5) Diabetes mellitus type 2 in nonobese Is this a current diagnosis for this admission?: YesPlan: cover with sliding scale insulin (6) Hypotension Qualifiers: Hypotension type: unspecified hypotension type Qualified Code(s): I95.9 - Hypotension, unspecified Is this a current diagnosis for this admission?: YesPlan: continue with midodrin (7) Pulmonary hypertension Is this a current diagnosis for this admission?: Yes (8) Anticoagulated Is this a current diagnosis for this admission?: YesPlan: continue with eliquis (9) Obstructive sleep apnea Is this a current diagnosis for this admission?: YesPlan: Continue with CPAP - Time Time Spent with patient: 25-34 minutes - Inpatient Certification Medical Necessity: Need Close Monitoring Due to Risk of Patient Decompensation
[2017-04-09] MEDS: IRON POLYSACCHARIDES COMPLEX 150 MG CAPSULE PO SCH (17:11)
[2017-04-09] MEDS: CYANOCOBALAMIN (VITAMIN B-12) 1,000 MCG TABLET PO SCH (17:12)
[2017-04-09] MEDS: INSULIN LISPRO 100 UNIT/ML 3 ML VIAL SUBCUT PRN ×2 (17:57→21:51)
[2017-04-09] MEDS ORDERED: [UNRECOGNIZED DRUG - MIXTURE] PO SCH (18:00)
[2017-04-09] MEDS: ATORVASTATIN CALCIUM 40 MG TABLET PO SCH (21:49)
[2017-04-10 04:37] LABS: ABSOLUTE BASOPHILS # (AUTO) 0.1 10^3/uL (0.0-0.2); ABSOLUTE EOSINOPHILS # (AUTO) 0.3 10^3/uL (0.0-0.6); ABSOLUTE LYMPHOCYTES (AUTO) 1.2 10^3/uL (0.5-4.7); ABSOLUTE MONOCYTES (AUTO) 0.7 10^3/uL (0.1-1.4); ABSOLUTE NEUT (AUTO) 5.4 10^3/uL (1.7-8.2); BASOPHILS % (AUTO) 1.5 % (0-2); EOSINOPHILS % (AUTO) 3.7 % (0-6); HEMATOCRIT 36.6 % (37.9-51.0); HEMOGLOBIN 11.4 g/dL (13.5-17.0); HGB HCT DIFFERENCE -2.4; LYMPHOCYTES % (AUTO) 15.7 % (13-45); MEAN CORPUSCULAR HEMOGLOBIN 24.3 pg (27.0-33.4); MEAN CORPUSCULAR HGB CONC 31.1 g/dL (32.0-36.0); MEAN CORPUSCULAR VOLUME 78 fl (80-97); MONOCYTES % (AUTO) 8.5 % (3-13); RED BLOOD COUNT 4.68 10^6/uL (4.35-5.55); RED CELL DISTRIBUTION WIDTH 19.5 % (11.5-14.0); SEGMENTED NEUTROPHILS % (AUTO) 70.6 % (42-78); WHITE BLOOD COUNT 7.7 10^3/uL (4.0-10.5)
[2017-04-10 05:00] LABS: ANION GAP 8 (5-19); BLOOD UREA NITROGEN 43 mg/dL (7-20); CALCIUM 9.3 mg/dL (8.4-10.2); CARBON DIOXIDE 27 mmol/L (22-30); CHLORIDE 105 mmol/L (98-107); CREATININE RESULT 1.78 mg/dL (0.52-1.25); GLUCOSE 185 mg/dL (75-110); POTASSIUM 4.2 mmol/L (3.6-5.0); SODIUM 139.8 mmol/L (137-145)
[2017-04-10] MEDS: MIDODRINE HCL 5 MG TABLET PO SCH ×3 (06:52→15:57)
[2017-04-10] MEDS: SITAGLIPTIN PHOSPHATE 50 MG TABLET PO SCH (08:38)
[2017-04-10] MEDS: CHOLECALCIFEROL (D3) 1,000 UNIT TABLET PO SCH ×2 (10:08→18:13)
[2017-04-10] MEDS: APIXABAN 5 MG TABLET PO SCH ×2 (10:08→22:11)
[2017-04-10] MEDS: FUROSEMIDE INJ/PF 40 MG/4 ML SDV IV SCH ×2 (10:11→21:15)
[2017-04-10] MEDS: FAMOTIDINE 20 MG TABLET PO SCH ×2 (10:23→22:12)
[2017-04-10] MEDS: LISINOPRIL 5 MG TABLET PO SCH ×2 (10:23→21:15)
[2017-04-10] MEDS: METOPROLOL SUCCINATE 25 MG TAB.SR.24H PO SCH ×2 (10:23→22:10)
[2017-04-10] MEDS: INSULIN LISPRO 100 UNIT/ML 3 ML VIAL SUBCUT PRN ×3 (11:18→22:12)
--- NOTE | 2017-04-10 13:19 | PDOC DISCHARGE SUMMARY ---
General - Admit/Disc Date/PCP Admission Date/Primary Care Provider: 04/08/17 18:24 RUFINA LOWRY MD Discharge Date: 04/10/17 - Discharge Diagnosis (1) Acute on chronic congestive heart failure Is this a current diagnosis for this admission?: Yes (2) CKD (chronic kidney disease), stage III Is this a current diagnosis for this admission?: Yes (3) Paroxysmal a-fib Is this a current diagnosis for this admission?: Yes (4) Anemia of chronic disease Is this a current diagnosis for this admission?: Yes (5) Diabetes mellitus type 2 in nonobese Is this a current diagnosis for this admission?: Yes (6) Hypotension Is this a current diagnosis for this admission?: Yes (7) Pulmonary hypertension Is this a current diagnosis for this admission?: Yes (8) Anticoagulated Is this a current diagnosis for this admission?: Yes (9) Obstructive sleep apnea Is this a current diagnosis for this admission?: Yes - Additional Information Resuscitation Status: Full Code Discharge Diet: Cardiac, Diabetic Discharge Activity: Activity As Tolerated, Balance Activity w/Rest, Weigh Daily Home Medications: Apixaban [Eliquis 5 mg Tablet] 5 mg PO Q12 04/08/17 Atorvastatin Calcium [Lipitor 40 mg Tablet] 40 mg PO QHS 04/08/17 Cholecalciferol (Vitamin D3) [Vitamin D3 1000 Unit Tablet] 1,000 mg PO Q12 04/08 Cyanocobalamin (Vitamin B-12) [Vitamin B-12 1000 mcg Tablet] 1,000 mcg SL QHS Dextrose [Glucose] 1 tab PO PRN PRN 04/08/17 Glimepiride [Amaryl 4 mg Tablet] 2 mg PO DAILY 04/08/17 Hum Insulin NPH/Reg Insulin Hm [Novolin 70-30 100 Unit/ml Vial] 10 units SQ MEALS PRN 04/08/17 Iron Aspgly&Ps/C/B12/FA/Ca/Suc [Ferrex 150 Forte Plus Capsule] 1 cap PO QHS 10/24 Linagliptin [Tradjenta] 5 mg PO DAILY 04/08/17 Nitroglycerin [Nitrostat 0.4 mg (1/150 Gr) Tabs 25/Bottle] 1 tab SL Q5MP PRN 10/24 Pantoprazole Sodium [Protonix] 40 mg PO DAILYP PRN 04/08/17 Tramadol HCl [Ultram 50 mg Tablet] 50 mg PO Q8 04/08/17 Atorvastatin Calcium [Lipitor 40 mg Tablet] 40 mg PO QHS tablet 04/10/17 Cholecalciferol (Vitamin D3) [Vitamin D3 1000 Unit Tablet] 1,000 unit PO BID tablet 04/10/17 Cyanocobalamin (Vitamin B-12) [Vitamin B-12 1000 mcg Tablet] 1,000 mcg PO QPM tablet 04/10/17 Furosemide [Lasix 20 mg Tablet] 20 mg PO BID #60 tablet 04/10/17 Lisinopril [Prinivil 5 mg Tablet] 2.5 mg PO Q12 tablet 04/10/17 Metoprolol Succinate [Toprol Xl 25 mg Tab.sr] 12.5 mg PO Q12 tab.sr.24h Midodrine HCl [Proamatine 5 mg Tablet] 5 mg PO TID@0600,1100,1500 tablet History of Present Illness History of Present Illness: BAM MORRISON is a 66 year old male with a history of chronic congestive heart failure presents with acute exacerbation. He has had 3 day history of shortness of breath, orthopnea, PND as well as dyspnea on exertion. He denies having any chest pain or palpitations. He does have significant lower extremity edema. He reports that he has been compliant with his dietary restrictions. He also reports his blood sugars have been somewhat elevated in the 200s. Hospital Course Hospital Course: 66-year-old gentleman who presented with shortness of breath consistent with acute congestive heart failure. The patient was started on IV Lasix and diuresed. His shortness of breath improved although he did report he was short of breath with exertion. He was ambulated on room air and he did have hypoxia with oxygen saturations down to 83%. These improved with oxygen. He will be sent home on Lasix 20 mg twice daily instead of his usual once daily. He also is instructed to weigh daily. The rest of the medical problems were stable during this hospitalization. Physical Exam Vital Signs: Temp Pulse Resp BP Pulse Ox 97.4 F 95 18 124/80 98 04/10/17 03:49 04/10/17 08:00 04/10/17 08:00 04/10/17 03:49 04/10/17 08:00 Intake & Output 04/09/17 04/10/17 04/11/17 06:59 06:59 06:59 Intake Total 610 1205 Output Total 1425 7335 Balance -815 -470 Weight 81.3 kg 73.7 kg General appearance: PRESENT: no acute distress, well-developed, well-nourished Eye exam: PRESENT: conjunctiva pink. ABSENT: scleral icterus Mouth exam: PRESENT: moist, tongue midline Neck exam: ABSENT: JVD Respiratory exam: PRESENT: clear to auscultation shital. ABSENT: rales, rhonchi, wheezes Cardiovascular exam: PRESENT: RRR. ABSENT: diastolic murmur, rubs, systolic murmur GI/Abdominal exam: PRESENT: normal bowel sounds, soft. ABSENT: distended, guarding, mass, organolmegaly, rebound, tenderness Extremities exam: ABSENT: calf tenderness, clubbing, pedal edema Neurological exam: PRESENT: alert, awake, oriented to person, oriented to place , oriented to time, oriented to situation, CN II-XII grossly intact. ABSENT: motor sensory deficit Psychiatric exam: ABSENT: appropriate affect Skin exam: PRESENT: dry, intact, warm. ABSENT: cyanosis, rash Results Laboratory Results: 04/10/17 04:00 04/10/17 04:00 04/10/17 04/10/17 04:00 04:00 WBC 7.7 RBC 4.68 Hgb 11.4 L Hct 36.6 L MCV 78 L MCH 24.3 L MCHC 31.1 L RDW 19.5 H Plt Count 303 Seg Neutrophils % 70.6 Lymphocytes % 15.7 Monocytes % 8.5 Eosinophils % 3.7 Basophils % 1.5 Absolute Neutrophils 5.4 Absolute Lymphocytes 1.2 Absolute Monocytes 0.7 Absolute Eosinophils 0.3 Absolute Basophils 0.1 Sodium 139.8 Potassium 4.2 Chloride 105 Carbon Dioxide 27 Anion Gap 8 BUN 43 H Creatinine 1.78 H Est GFR ( Amer) 46 L Est GFR (Non-Af Amer) 38 L Glucose 185 H Calcium 9.3 04/08/17 04/08/17 04/09/17 18:48 18:48 00:34 Creatine Kinase 70 57 CK-MB (CK-2) 1.00 Troponin I 0.014 04/09/17 04/09/17 04/09/17 00:34 06:36 06:36 Creatine Kinase 59 CK-MB (CK-2) 0.88 0.85 Troponin I 0.018 0.025 Impressions: Chest X-Ray 04/08/17 16:03 IMPRESSION: Mild pulmonary vascular congestion & interstitial prominence comparison the prior study may suggest underlying edema and/or atypical infection. No focal infiltrate. Qualifiers PATEINT BEING DISCHARGED WITH ANY OF THE FOLLOWING DIAGNOSIS?: Heart Failure HF Pt being discharged on ACEI for LVEF less than 40%?: Yes HF Pt being discharged on ARBS for LVEF less than 40%?: No Reason(s) for not prescribing ARBS:: Procedure Contraindicated HF Pt discharged on evidence-based Beta Honorio:: Yes Plan Discharge Plan: Patient is discharged home in stable condition. Will follow up with his primary care doctor in 2 weeks. Time Spent: Greater than 30 Minutes
[2017-04-10] MEDS: ACETAMINOPHEN 325 MG TABLET PO PRN ×2 (15:55→20:06)
[2017-04-10] MEDS: CYANOCOBALAMIN (VITAMIN B-12) 1,000 MCG TABLET PO SCH (18:13)
[2017-04-10] MEDS: IRON POLYSACCHARIDES COMPLEX 150 MG CAPSULE PO SCH (18:14)
[2017-04-10] MEDS: ATORVASTATIN CALCIUM 40 MG TABLET PO SCH (22:10)
[2017-04-11] MEDS: MIDODRINE HCL 5 MG TABLET PO SCH (05:13)
[2017-04-11 08:35] VITALS: BP 121/75
--- NOTE | 2017-04-11 09:33 | Progress Note ---
Provider Note Provider Note: Was discharged home yesterday. He however did not feel comfortable going home secondary to his underlying anxiety. He was monitored overnight and had no change in his status. He is sent home today. See discharge summary dictated yesterday.
== END 2017-04-11 09:42 | disposition home health service (06) | DRG 291 ==
LOC: ER 15:28 → EH 18:04 → UNDOADMIN 18:04 → EH 18:24 → 3N 20:39
PROVIDERS: ADMIT Internal Medicine; ATTEND Internal Medicine
DX: I13.0 Hypertensive heart and chronic kidney disease with heart failure and stage 1 through stage 4 chronic kidney disease, or unspecified chronic kidney disease (principal); I50.23 Acute on chronic systolic (congestive) heart failure; E11.22 Type 2 diabetes mellitus with diabetic chronic kidney disease; N18.3 Chronic kidney disease, stage 3 (moderate); D63.1 Anemia in chronic kidney disease; I48.0 Paroxysmal atrial fibrillation; I27.2 Other secondary pulmonary hypertension; F41.9 Anxiety disorder, unspecified; E78.5 Hyperlipidemia, unspecified; M17.11 Unilateral primary osteoarthritis, right knee; G47.33 Obstructive sleep apnea (adult) (pediatric); Z79.899 Other long term (current) drug therapy; Z79.02 Long term (current) use of antithrombotics/antiplatelets; Z79.4 Long term (current) use of insulin; I25.2 Old myocardial infarction
CPT/HCPCS: 36415; 71010; 80048; 80053; 82550; 82553; 82962; 83735; 83880; 84484; 85025; 85027; 93005; 93010; 94660; 99285; J1815; J1940

== ENCOUNTER 2017-04-17 19:55 | Inpatient (IN) | payer OTHER, MEDICARE ==
--- NOTE | 2017-04-17 21:11 | RADIOLOGY REPORT (SQ) ---
EXAM DESCRIPTION: CHEST SINGLE VIEW COMPLETED DATE/TIME: 04/17/2017 8:51 pm REASON FOR STUDY: sob COMPARISON: 18 17 EXAM PARAMETERS: NUMBER OF VIEWS: One view. TECHNIQUE: Single frontal radiographic view of the chest acquired. RADIATION DOSE: NA LIMITATIONS: None. FINDINGS: LUNGS AND PLEURA: Mild basilar moderate parenchymal opacities. No effusions. No pneumoth orax. MEDIASTINUM AND HILAR STRUCTURES: No masses. Contour normal. HEART AND VASCULAR STRUCTURES: Heart enlarged with mild vascular congestion. BONES: No acute findings. HARDWARE: None in the chest. OTHER: No other significant finding. IMPRESSION: Mild vascular congestion. Bilateral lower lobe pneumonia. TECHNICAL DOCUMENTATION: JOB ID: [id number]
--- NOTE | 2017-04-17 21:26 | ER Document Report ---
ED Respiratory Problem - General Chief Complaint: Breathing Difficulty Stated Complaint: DIFFICULTY BREATHING Time Seen by Provider: 04/17/17 20:59 Notes: Patient has had difficulty breathing and shortness of breath which he attributes to recurrent CHF. His appetite is decreased and his energy level is down. He denies having any chest pains, however. He has had significant swelling increase in his lower extremities. Patient was here in this hospital for a 3 day stay, being discharged on April 10. His primary problems are congestive heart failure. Patient is currently on Lasix 20 mg twice a day, scheduled for the next 30 days, then to resume 20 mg daily. Patient has home oxygen. TRAVEL OUTSIDE OF THE [place] IN LAST 30 DAYS: No - Related Data Allergies/Adverse Reactions: No Known Allergies Allergy (Verified 04/17/17 20:50) Past Medical History - Social History Smoking Status: Never Smoker Family History: Reviewed & Not Pertinent, DM, Hypertension Patient has suicidal ideation: No Patient has homicidal ideation: No - Past Medical History Cardiac Medical History: Reports: Hx Atrial Fibrillation - Paroxysmal, Hx Congestive Heart Failure - Systolic; ejection fraction 2017 of approximately 20% ., Hx Heart Attack - [place] December 2016, Hx Hypercholesterolemia, Hx Hypertension Pulmonary Medical History: Reports: Hx Bronchitis, Hx COPD, Hx Sleep Apnea - Nasal CPAP; uncertain settings. Endocrine Medical History: Reports: Hx Diabetes Mellitus Type 1, Hx Diabetes Mellitus Type 2 Renal/ Medical History: Reports: Hx Renal Insufficiency GI Medical History: Reports: Hx Gastroesophageal Reflux Disease, Hx Colonoscopy , Hx Endoscopy Musculoskeltal Medical History: Reports Hx Arthritis - RIGHT knee per x rays, Reports Hx Gout, Reports Hx Musculoskeletal Deformity - Back pain for 4-5 years Infectious Medical History: Past Surgical History: Reports: Hx Orthopedic Surgery - right rotator cuff - Immunizations Hx Diphtheria, Pertussis, Tetanus Vaccination: Yes Hx Pneumococcal Vaccination: 11/05/13 Review of Systems - Review of Systems Notes: REVIEW OF SYSTEMS: CONSTITUTIONAL : Denies fever. EENT: Denies eye, ear, nose or mouth or throat pain or other symptoms. CARDIOVASCULAR: Denies chest pain. Increased swelling of lower legs and feet. RESPIRATORY: Has a dry cough, not significant chest congestion. See HPI. GASTROINTESTINAL: Denies abdominal pain or nausea, vomiting, or diarrhea. GENITOURINARY: Denies difficulty or painful urinating, urinary frequency, blood in urine. MUSCULOSKELETAL: Denies back or neck pain. Denies joint pain or swelling. SKIN: Denies rash or skin lesions. NEUROLOGICAL: Denies LOC or altered mental status. Denies headache. Denies sensory loss or motor deficits. ALL OTHER SYSTEMS REVIEWED AND NEGATIVE. Physical Exam - Vital signs Vitals: Temp Pulse Resp BP Pulse Ox 97.5 F 105 H 18 120/93 H 99 04/17/17 20:00 04/17/17 20:00 04/17/17 20:00 04/17/17 20:00 04/17/17 20:00 Interpretation: Normal - Notes Notes: PHYSICAL EXAMINATION: GENERAL: Well-appearing, in no acute distress. Vital signs essentially normal. Patient is comfortable on oxygen. HEAD: Atraumatic, normocephalic. EYES: Pupils equal round and reactive to light, extraocular movements intact. ENT: oropharynx clear without exudates. Moist mucous membranes. NECK: Normal range of motion, supple. LUNGS: By basilar rales. Few scattered rhonchi and wheezes. HEART: Regular rate and rhythm without murmurs. ABDOMEN: Soft, nontender. No guarding or rebound. BACK: No tenderness throughout entire back. EXTREMITIES: Normal range of motion without pain. +2 pretibial edema bilaterally. Negative Homans. NEUROLOGICAL: Normal speech, normal gait. Normal sensory, motor, and reflex exams. Awake, alert, and oriented x3. Cranial nerves normal. PSYCH: Normal mood, normal affect. SKIN: Warm, dry, no rashes. Course - Re-evaluation Re-evalutation: 04/17/17 22:[address] Capps who will admit him to telemetry. - Vital Signs Vital signs: Temp Pulse Resp BP Pulse Ox 97.5 F 105 H 18 120/93 H 97 04/17/17 20:00 04/17/17 20:00 04/17/17 20:00 04/17/17 20:00 04/17/17 20:40 - Laboratory Result Diagrams: 04/17/17 20:33 04/17/17 20:33 Laboratory results interpreted by me: 04/17/17 04/17/17 04/17/17 20:33 20:33 20:33 Hgb 12.1 L MCH 24.1 L MCHC 30.3 L RDW 21.4 H Basophils % 2.5 H BUN 44 H Creatinine 2.11 H Est GFR ( Amer) 38 L Est GFR (Non-Af Amer) 31 L Calcium 10.3 H Total Bilirubin 2.3 H Direct Bilirubin 0.9 H AST 77 H ALT 87 H Alkaline Phosphatase 217 H NT-Pro-B Natriuret Pep 66510 H - Diagnostic Test Radiology results interpreted by me: 04/17/17 21:36 Chest x-ray shows cardiomegaly, mild vascular congestion, and bilateral lower lobe pneumonia. - EKG Interpretation by Me EKG shows normal: Sinus rhythm Rate: Normal Additional EKG results interpreted by me: 04/17/17 21:37 EKG shows a normal sinus rhythm. No acute changes. Discharge - Discharge Clinical Impression: Renal insufficiency, Peripheral edema Pneumonia Qualifiers: Pneumonia type: due to unspecified organism Acute on chronic congestive heart failure Qualifiers: Congestive heart failure type: systolic Qualified Code(s): I50.23 - Acute on chronic systolic (congestive) heart failure Condition: Fair Disposition: ADMITTED INPATIENT Admitting Provider: Hospitalist Unit Admitted: Telemetry
[2017-04-17 21:33] LABS: ABSOLUTE BASOPHILS # (AUTO) 0.2 10^3/uL (0.0-0.2); ABSOLUTE EOSINOPHILS # (AUTO) 0.2 10^3/uL (0.0-0.6); ABSOLUTE LYMPHOCYTES (AUTO) 1.3 10^3/uL (0.5-4.7); ABSOLUTE MONOCYTES (AUTO) 0.7 10^3/uL (0.1-1.4); ABSOLUTE NEUT (AUTO) 6.8 10^3/uL (1.7-8.2); BASOPHILS % (AUTO) 2.5 % (0-2); EOSINOPHILS % (AUTO) 1.8 % (0-6); HEMATOCRIT 39.8 % (37.9-51.0); HEMOGLOBIN 12.1 g/dL (13.5-17.0); HGB HCT DIFFERENCE -3.5; LYMPHOCYTES % (AUTO) 13.8 % (13-45); MEAN CORPUSCULAR HEMOGLOBIN 24.1 pg (27.0-33.4); MEAN CORPUSCULAR HGB CONC 30.3 g/dL (32.0-36.0); MEAN CORPUSCULAR VOLUME 80 fl (80-97); MONOCYTES % (AUTO) 8.1 % (3-13); RED CELL DISTRIBUTION WIDTH 21.4 % (11.5-14.0); SEGMENTED NEUTROPHILS % (AUTO) 73.8 % (42-78); WHITE BLOOD COUNT 9.2 10^3/uL (4.0-10.5)
[2017-04-17 21:34] LABS: ALANINE AMINOTRANSFERASE 87 U/L (21-72); ALBUMIN 4.1 g/dL (3.5-5.0); ALKALINE PHOSPHATASE 217 U/L (38-126); ANION GAP 14 (5-19); ASPARTATE AMINO TRANSFERASE 77 U/L (17-59); BILIRUBIN,DIRECT 0.9 mg/dL (0.0-0.4); BILIRUBIN,TOTAL 2.3 mg/dL (0.2-1.3); BLOOD UREA NITROGEN 44 mg/dL (7-20); CALCIUM 10.3 mg/dL (8.4-10.2); CARBON DIOXIDE 25 mmol/L (22-30); CHLORIDE 104 mmol/L (98-107); CREATINE KINASE 83 U/L (55-170); CREATININE RESULT 2.11 mg/dL (0.52-1.25); GLUCOSE 105 mg/dL (75-110); SODIUM 143.1 mmol/L (137-145); TOTAL PROTEIN 7.3 g/dL (6.3-8.2)
[2017-04-17] MEDS ORDERED: CEFTRIAXONE 1 GM/D5W RTU 50 ML IV ONE (21:37)
[2017-04-17 21:56] LABS: CREATINE KINASE MB 1.24 ng/mL (<4.55)
[2017-04-17 22:01] LABS: TROPONIN I 0.037 ng/mL
--- NOTE | 2017-04-17 22:46 | EKG REPORT ---
SEVERITY:- ABNORMAL ECG - SINUS TACHYCARDIA PROBABLE LEFT ATRIAL ABNORMALITY LEFT ANTERIOR FASCICULAR BLOCK NONSPECIFIC T ABNORMALITIES, LATERAL LEADS BORDERLINE PROLONGED QT INTERVAL : Confirmed by: Dionicio Mckeon 17-Apr-2017 22:45:31
[2017-04-17] MEDS ORDERED: DEXTROSE 40% GEL 15 GM TUBE PO PRN ×2 (23:20)
[2017-04-17] MEDS ORDERED: DEXTROSE 50%-WATER 25 GM/50 ML DISP.SYRIN IV PRN ×2 (23:20)
[2017-04-17] MEDS ORDERED: GLUCAGON,HUMAN RECOMB 1 MG INJ IM PRN (23:20)
[2017-04-17] MEDS ORDERED: GUAIFENESIN SYRP 200 MG/10 ML UDC PO PRN (23:21)
[2017-04-17] MEDS ORDERED: ACETAMINOPHEN 325 MG TABLET PO PRN (23:27)
[2017-04-17] MEDS ORDERED: PHARMACY COMMUNICATION ORDER MC NR (23:30)
[2017-04-17] MEDS ORDERED: AZITHROMYCIN INJ 500 MG VIAL IV PRN (23:36)
[2017-04-17] MEDS ORDERED: AZITHROMYCIN INJ 500 MG VIAL IV ONE (23:36)
[2017-04-17 23:42] LABS: ADD ON TESTING BLD IN LAB ACKNOWLEDGE
--- NOTE | 2017-04-17 23:43 | PDOC H&P ---
History of Present Illness Admission Date/PCP: 04/17/17 22:28 RUFINA LOWRY MD Cardiology Dr. Wills Nephrology Dr. Jackson Pulmonology Dr. James Endocrinology Dr. Hoang Patient complains of: Difficulty breathing History of Present Illness: BAM MORRISON is a 66 year old -[place] male, with underlying type 2 diabetes mellitus, gout, paroxysmal atrial fibrillation, on Eliquis for same, hyperlipidemia, chronic systolic congestive heart failure, with echocardiogram earlier this year revealing an ejection fraction of 20%, myocardial infarction in December of this year, transferred to [facility] for same, obstructive sleep apnea, on nasal CPAP, setting of 10, and nightly and as needed 2 L per nasal cannula home O2 dependent COPD who presents to the emergency room for evaluation of approximately 24 hour history of slowly progressive difficulty breathing. Patient has been discussed with emergency room physician who evaluated the patient. Describes a dry cough. Nausea but no vomiting. No fever or chills. No diarrhea or dysuria, chest or abdominal pain. States this episode feels different than his usual episode of congestive heart failure exacerbation. He has been performing daily weight checks, with no change in his weight. 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 No change in the right ankle swelling. No sick contacts. Hospitalized on our service the second through the fourth of this month, discharge diagnoses including acute on chronic systolic congestive heart failure. Discharge summary reviewed. Admitted to our service March 06 of this year for difficulty breathing. History and physical exam has been reviewed. Currently resting quietly, stating he is breathing more comfortably. Dictation via voice recognition software. Laboratory results are listed in [facility] and are reviewed. X-ray summary results are listed below, with full report(s) reviewed, along with films themselves, with comparison to prior study. EKG reviewed and compared to prior tracing from the second of this month. Social history/personal habits: . 3 adult children, including his son, who is present at his side with his approval. Retired and on disability. No use of alcohol tobacco or illicit drugs. Allergies/adverse reactions are listed in BUILD and are reviewed. Home medications initially autopopulated into [employer] may not accurately reflect patient's true medications, dosages, and/or frequencies. 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 Unfortunately, patient not certain of all medications/dosages/frequencies. REVIEW OF SYSTEMS: Constitutional: No fever or chills. Eyes: Wears glasses. ENT: No swallowing problems or complaints. Denies hearing loss. Pulmonary: See history and present illness. Cardiovascular: No current complaints, including chest pain. Gastrointestinal: See history and present illness. Skin: No current complaints, including rashes. Hematologic: Easy bruising. Neurologic: No current complaints, including numbness or tingling. Musculoskeletal: Mild joint pain from arthritis. Psychiatric: Denies anxiety or depression. Endocrine: No current complaints, including polyuria. Genitourinary: No current complaints, including dysuria. PHYSICAL EXAMINATION: 5 feet 11 inches tall. 80.3 kg. BMI 24.7 kg/m. Blood pressure 125/89. Pulse 101 and slightly irregular. 99% saturation on 2 L oxygen per nasal cannula. Temperature 98.0. Well-nourished well-developed -[place] male appearing perhaps a bit younger than his stated age. Pleasant awake alert and cooperative. No obvious distress, other than perhaps mildly anxious. Skin is warm and dry. No grossly obvious evidence of rash in areas of skin examined. No subcutaneous nodules palpated. ENT: Hearing grossly normal to normal conversation. Tongue midline on protrusion pink and slightly tacky. Eyes: No scleral icterus. Pupils equal and reactive to light at 4 mm. [place] conjunctivae. Neck is supple and nontender to gentle active range of motion and palpation. Midline trachea. No palpable thyroid nodule mass enlargement or tenderness. Lymphatic: No palpable cervical or clavicular nodes. Neck and lymphatic exams limited by patient body habitus. Psychiatric: Reasonable insight into acute and chronic medical issues. Oriented to time location and why here. Lungs: Auscultation reveals clear and equal breath sounds bilaterally, with exception of possible slightly decreased breath sounds in the right base. No use of accessory respiratory muscles. Cardiovascular: Heart regular rate and rhythm, without gallop murmur or rub. No carotid or abdominal aortic bruits. Mild bilateral slightly pitting ankle and pedal edema, left greater than right, which patient states is a chronic finding. Faintly palpable dorsalis pedis pulses. Abdomen:soft slightly distended nontender with positive bowel sounds. Unable to adequately evaluate abdomen for masses or organomegaly due to distention. Extremities: Feet are warm and dry. No calf tenderness to compression. No grossly obvious visual evidence of calf swelling. Gentle manipulation of lower extremities fails to reveal any obvious evidence of injury or instability to knees hips or ankles. Neurologic: Moves upper extremities grossly normally. Patellar reflexes absent. Absent Babinski. Light touch is intact at feet. Dorsiflexion and plantarflexion of feet 5 / 5 and symmetric. Past Medical History Cardiac Medical History: Reports: Atrial Fibrillation - Paroxysmal, Congestive Heart Failure - Systolic; ejection fraction 2017 of approximately 20%., Coronary Artery Disease, Myocardial Infarction - [place] December 2016, Hyperlipidema, Hypertension Denies: DVT, Pulmonary Embolism Pulmonary Medical History: Reports: Bronchitis, Chronic Obstructive Pulmonary Disease (COPD) - Nightly and as needed 2 L oxygen per nasal cannula, Sleep Apnea - Nasal CPAP; pressure 10 Denies: Asthma EENT Medical History: Reports: Eyes - Glasses Denies: Ears, Throat Neurological Medical History: Denies: Hemorrhagic CVA, Ischemic CVA, Seizures Endocrine Medical History: Reports: Diabetes Mellitus Type 2 Denies: Diabetes Mellitus Type 1, Hyperthyroidism, Hypothyroidism Renal/ Medical History: Reports: Chronic Kidney Disease - Stage III GI Medical History: Reports: Gastroesophageal Reflux Disease, Other - Colonoscopic polypectomy February 2017 Denies: Cirrhosis, Peptic Ulcer Disease Musculoskeltal Medical History: Reports: Arthritis, Gout - Primarily affecting left ankle and foot Psychiatric Medical History: Denies: Alcohol Dependency, Depression, General Anxiety Disorder, Substance Abuse, Tobacco Dependency Hematology: Reports: Anemia - Followed by Dr. Wilson; recent total GI workup., Other - Easy bruising Infectious Medical History: Denies: Clostridium Difficile, Hepatitis B, Hepatitis C, Methicillin- Resistant Staph Aureus Past Surgical History Past Surgical History: Reports: Orthopedic Surgery - right rotator cuff Social History Information Source: Patient, Emergency Med Personnel, [facility] Records Lives with: Spouse/Significant other Smoking Status: Never Smoker Frequency of Alcohol Use: None Hx Recreational Drug Use: No Drugs: None Hx Prescription Drug Abuse: No - Advance Directive Resuscitation Status: Full Code Surrogate healthcare decision maker:: Family History Family History: Reviewed & Not Pertinent, DM, Hypertension Parental Family History Reviewed: Yes - Uncertain cause of parents deaths. Children Family History Reviewed: Yes - Healthy Sibling(s) Family History Reviewed.: Yes - Uncertain health status Medication/Allergy Home Medications: Apixaban [Eliquis 5 mg Tablet] 5 mg PO Q12 04/08/17 Dextrose [Glucose] 4 mg PO PRN PRN 04/08/17 Glimepiride [Amaryl 4 mg Tablet] 2 mg PO DAILY 04/08/17 Hum Insulin NPH/Reg Insulin Hm [Novolin 70-30 100 Unit/ml Vial] 20 units SQ MEALS PRN 04/08/17 Iron Aspgly&Ps/C/B12/FA/Ca/Suc [Ferrex 150 Forte Plus Capsule] 1 cap PO QHS 10/24 Linagliptin [Tradjenta] 5 mg PO DAILY 04/08/17 Nitroglycerin [Nitrostat 0.4 mg (1/150 Gr) Tabs 25/Bottle] 1 tab SL Q5MP PRN 10/24 Pantoprazole Sodium [Protonix] 40 mg PO DAILYP PRN 04/08/17 Tramadol HCl [Ultram 50 mg Tablet] 50 mg PO Q8HP PRN 04/08/17 Atorvastatin Calcium [Lipitor 40 mg Tablet] 40 mg PO QHS tablet 04/10/17 Cholecalciferol (Vitamin D3) [Vitamin D3 1000 Unit Tablet] 1,000 unit PO BID tablet 04/10/17 Cyanocobalamin (Vitamin B-12) [Vitamin B-12 1000 mcg Tablet] 1,000 mcg PO QPM tablet 04/10/17 Furosemide [Lasix 20 mg Tablet] 20 mg PO BID #60 tablet 04/10/17 Colchicine 0.6 mg PO Q12 04/17/17 Allergies/Adverse Reactions: No Known Allergies Allergy (Verified 04/17/17 20:50) Physical Exam Vital Signs: Temp Pulse Resp BP Pulse Ox 98 F 101 H 22 H 126/89 H 98 04/17/17 23:09 04/17/17 23:09 04/17/17 23:09 04/17/17 23:02 04/17/17 23:09 Results Impressions: Chest X-Ray 04/17/17 20:40 IMPRESSION: Mild vascular congestion. Bilateral lower lobe pneumonia. Assessment & Plan - Diagnosis (1) Systolic CHF Qualifiers: Congestive heart failure chronicity: chronic Qualified Code(s): I50.22 - Chronic systolic (congestive) heart failure Is this a current diagnosis for this admission?: YesPlan: Current episode of difficulty breathing appears to be more of a pulmonary than cardiac issue. Resume home medications as appropriate once these have been determined and reviewed. (2) Basal pneumonia of both lungs Is this a current diagnosis for this admission?: YesPlan: Patient will be admitted under COPD exacerbation and pneumonia protocol. Incentive spirometry twice a day. Scheduled DuoNeb's. As needed albuterol nebs. Antibiotics will consist of Rocephin and intravenous Zithromax. I strongly encouraged patient to notify staff should patient feel that breathing is worsening. Patient is a full code. I have strongly encouraged patient not to get out of bed without notifying staff , to avoid a fall with injury. Knee high SCDs for DVT prophylaxis; with patient on Eliquis, no need for Lovenox or heparin.. Impression and plans were discussed with patient and son, both of whom concur. Time spent in evaluation and management of patient: 80 minutes. (3) COPD exacerbation Is this a current diagnosis for this admission?: Yes (4) Elevated LFTs Is this a current diagnosis for this admission?: YesPlan: Likely due to an element of congestive heart failure. Repeat chemistry. (5) Anticoagulated Is this a current diagnosis for this admission?: YesPlan: Resume home medications as appropriate once these have been determined and reviewed. (6) Elevated troponin I level Is this a current diagnosis for this admission?: YesPlan: No evidence of acute coronary syndrome, but will proceed with serial troponins. (7) CKD (chronic kidney disease), stage III Is this a current diagnosis for this admission?: Yes (8) Diabetes mellitus type 2 in nonobese Is this a current diagnosis for this admission?: YesPlan: Diabetic cardiac prerenal diet. Accu-Cheks with appropriate sliding scale coverage. Resume home medications as appropriate once these have been determined and reviewed. (9) HLD (hyperlipidemia) Qualifiers: Hyperlipidemia type: unspecified Qualified Code(s): E78.5 - Hyperlipidemia, unspecified Is this a current diagnosis for this admission?: YesPlan: Resume home medications as appropriate once these have been determined and reviewed. (10) History of non-ST elevation myocardial infarction (NSTEMI) Is this a current diagnosis for this admission?: YesPlan: Resume home medications as appropriate once these have been determined and reviewed. (11) Obstructive sleep apnea Is this a current diagnosis for this admission?: YesPlan: CPAP (12) Paroxysmal a-fib Is this a current diagnosis for this admission?: YesPlan: Resume home medications as appropriate once these have been determined and reviewed. - Time Time Spent: Greater than 70 Minutes Medications reviewed and adjusted accordingly: Yes Anticipated discharge: Home Within: within 72 hours - Inpatient Certification Based on my medical assessment, after consideration of the patient's comorbidities, presenting symptoms, or acuity I expect that the services needed warrant INPATIENT care.: Yes I certify that my determination is in accordance with my understanding of Medicare's requirements for reasonable and necessary INPATIENT services [42 CFR 412.3e].: Yes Medical Necessity: Significant Comorbidiites Make Outpatient Treatment Too Risky , Need Close Monitoring Due to Risk of Patient Decompensation, Need For Continuous Telemetry Monitoring, Need for Nebulizer Therapy and Monitoring of Response, Need for IV Antibiotics, Risk of Complication if Not Cared For in Hospital Post Hospital Care: D/C or Transfer Summary
[2017-04-17] MEDS ORDERED: AZITHROMYCIN 500 MG in DEXTROSE 5%-WATER 250 ML IV SCH (23:45)
[2017-04-18] MEDS ORDERED: AZITHROMYCIN 500 MG in DEXTROSE 5%-WATER 250 ML IV ONE ×2
[2017-04-18 00:02] LABS: MAGNESIUM 2.1 mg/dL (1.6-2.3)
[2017-04-18] MEDS: PROMETHAZINE HCL 25 MG TABLET PO PRN (01:58)
[2017-04-18 02:56] LABS: PROTHROMBIN TIME 25.7 SEC (11.4-15.4)
[2017-04-18 02:57] LABS: PARTIAL THROMBOPLASTIN TIME 38.3 SEC (23.5-35.8)
[2017-04-18 07:16] LABS: APPEARANCE,URINE SLIGHTLY-CLOUDY; BILIRUBIN,URINE NEGATIVE (NEGATIVE); GLUCOSE, URINE NEGATIVE (NEGATIVE); KETONES,URINE NEGATIVE (NEGATIVE); LEUKOCYTE ESTERASE,URINE NEGATIVE (NEGATIVE); NITRITE,URINE NEGATIVE (NEGATIVE); PROTEIN,URINE 30 mg/dL (NEGATIVE); URINE SPECIFIC GRAVITY 1.019; UROBILINOGEN,URINE NEGATIVE mg/dL (<2.0)
[2017-04-18] MEDS: IPRATROPIUM/ALBUTEROL 0.5-2.5 MG/3 ML AMPUL NEB SCH ×3 (08:01→19:41)
[2017-04-18 09:03] LABS: ABSOLUTE BASOPHILS # (AUTO) 0.1 10^3/uL (0.0-0.2); ABSOLUTE EOSINOPHILS # (AUTO) 0.1 10^3/uL (0.0-0.6); ABSOLUTE LYMPHOCYTES (AUTO) 1.9 10^3/uL (0.5-4.7); ABSOLUTE MONOCYTES (AUTO) 0.8 10^3/uL (0.1-1.4); ABSOLUTE NEUT (AUTO) 6.6 10^3/uL (1.7-8.2); EOSINOPHILS % (AUTO) 1.3 % (0-6); HEMATOCRIT 36.2 % (37.9-51.0); HEMOGLOBIN 11.1 g/dL (13.5-17.0); HGB HCT DIFFERENCE -2.9; LYMPHOCYTES % (AUTO) 19.4 % (13-45); MEAN CORPUSCULAR HEMOGLOBIN 24.3 pg (27.0-33.4); MEAN CORPUSCULAR HGB CONC 30.6 g/dL (32.0-36.0); MEAN CORPUSCULAR VOLUME 80 fl (80-97); MONOCYTES % (AUTO) 8.8 % (3-13); RED BLOOD COUNT 4.56 10^6/uL (4.35-5.55); SEGMENTED NEUTROPHILS % (AUTO) 69.5 % (42-78); WHITE BLOOD COUNT 9.6 10^3/uL (4.0-10.5)
[2017-04-18 09:22] LABS: ALANINE AMINOTRANSFERASE 154 U/L (21-72); ALBUMIN 3.2 g/dL (3.5-5.0); ALKALINE PHOSPHATASE 181 U/L (38-126); ANION GAP 10 (5-19); ASPARTATE AMINO TRANSFERASE 172 U/L (17-59); BILIRUBIN,DIRECT 0.6 mg/dL (0.0-0.4); BILIRUBIN,TOTAL 1.6 mg/dL (0.2-1.3); BLOOD UREA NITROGEN 42 mg/dL (7-20); CALCIUM 9.4 mg/dL (8.4-10.2); CARBON DIOXIDE 26 mmol/L (22-30); CHLORIDE 106 mmol/L (98-107); CREATININE RESULT 2.02 mg/dL (0.52-1.25); GLUCOSE 149 mg/dL (75-110); POTASSIUM 4.2 mmol/L (3.6-5.0); SODIUM 142.2 mmol/L (137-145)
[2017-04-18] MEDS: SITAGLIPTIN PHOSPHATE 50 MG TABLET PO SCH (09:22)
[2017-04-18] MEDS: APIXABAN 5 MG TABLET PO SCH ×2 (09:23→21:40)
[2017-04-18] MEDS: CHOLECALCIFEROL (D3) 1,000 UNIT TABLET PO SCH ×2 (09:41→21:40)
[2017-04-18] MEDS ORDERED: (PENDING PHARMACY ID) (Linagliptin [Tradjenta] 5 MG) PO SCH (10:00)
[2017-04-18] MEDS ORDERED: SITAGLIPTIN PHOSPHATE 50 MG TABLET PO SCH (10:00)
[2017-04-18] MEDS ORDERED: FUROSEMIDE 20 MG TABLET PO SCH ×2 (10:00)
[2017-04-18] MEDS ORDERED: AZITHROMYCIN 500 MG in DEXTROSE 5%-WATER 250 ML IV SCH (10:00)
[2017-04-18] MEDS ORDERED: GLIMEPIRIDE 4 MG TABLET PO SCH (10:00)
[2017-04-18] MEDS ORDERED: CHOLECALCIFEROL (D3) 1,000 UNIT TABLET PO SCH (10:00)
[2017-04-18] MEDS ORDERED: CEFTRIAXONE 1 GM/D5W RTU 50 ML IV SCH (10:00)
--- NOTE | 2017-04-18 11:03 | PDOC PROGRESS REPORT ---
Subjective Progress Note for:: 04/18/17 Subjective:: Patient feels subjectively better with regard to shortness of breath since admission. He denies fever, chills, chest pain, abdominal pain, nausea, vomiting. Physical Exam Vital Signs: Temp Pulse Resp BP Pulse Ox 98.2 F 100 18 114/74 98 04/18/17 07:22 04/18/17 07:22 04/18/17 07:22 04/18/17 07:22 04/18/17 07:22 Intake & Output 04/17/17 04/18/17 04/19/17 06:59 06:59 06:59 Intake Total 730 Output Total 300 Balance 430 Weight 81.11 kg GENERAL: No acute distress HEENT: Conjunctiva clear, nonicteric, moist mucous membranes, no JVD, midline trachea RESPIRATORY: Faint bilateral wheezes, good air excursion CARDIAC: Regular rate and rhythm, no murmurs/gallops/rubs ABDOMEN: Soft, nondistended, nontender, positive bowel sounds, no rebound, no guarding EXTREMETIES: No edema, cyanosis, clubbing NEUROLOGIC: Alert, oriented to person/place/time, CN's grossly intact, no focal deficits SKIN: No rash, wounds PSYCH: Normal mood, normal affect Results Laboratory Results: 04/18/17 08:44 04/18/17 08:44 04/18/17 04/18/17 04/18/17 06:10 08:44 08:44 WBC 9.6 RBC 4.56 Hgb 11.1 L Hct 36.2 L MCV 80 MCH 24.3 L MCHC 30.6 L RDW 21.0 H Plt Count 259 Seg Neutrophils % 69.5 Lymphocytes % 19.4 Monocytes % 8.8 Eosinophils % 1.3 Basophils % 1.0 Absolute Neutrophils 6.6 Absolute Lymphocytes 1.9 Absolute Monocytes 0.8 Absolute Eosinophils 0.1 Absolute Basophils 0.1 Sodium 142.2 Potassium 4.2 Chloride 106 Carbon Dioxide 26 Anion Gap 10 BUN 42 H Creatinine 2.02 H Est GFR ( Amer) 40 L Est GFR (Non-Af Amer) 33 L Glucose 149 H Calcium 9.4 Total Bilirubin 1.6 H AST 172 H ALT 154 H Alkaline Phosphatase 181 H Total Protein 6.0 L Albumin 3.2 L Urine Color YELLOW Urine Appearance SLIGHTLY-CLOUDY Urine pH 5.0 Ur Specific [place] 1.019 Urine Protein 30 H Urine Glucose (UA) NEGATIVE Urine Ketones NEGATIVE Urine Blood NEGATIVE Urine Nitrite NEGATIVE Ur Leukocyte Esterase NEGATIVE Urine WBC (Auto) 1 Urine RBC (Auto) 1 04/18/17 04/18/17 02:39 08:44 Troponin I 0.034 0.028 Impressions: Chest X-Ray 04/17/17 20:40 IMPRESSION: Mild vascular congestion. Bilateral lower lobe pneumonia. Assessment & Plan - Diagnosis (1) Acute on chronic respiratory failure with hypoxemia Is this a current diagnosis for this admission?: YesPlan: Continue oxygen supplementation. Patient is on home oxygen at baseline. He is followed by Dr. Hastings of pulmonary medicine as an outpatient. He is also on nocturnal CPAP for obstructive sleep apnea. (2) Basal pneumonia of both lungs Is this a current diagnosis for this admission?: YesPlan: Likely bacterial. Continue IV Rocephin and IV azithromycin pending further cultures. (3) COPD exacerbation Is this a current diagnosis for this admission?: YesPlan: Continue duo nebs every 6 hours while awake. Albuterol nebulizer treatments as needed. (4) Elevated LFTs Is this a current diagnosis for this admission?: Yes (5) Systolic CHF Qualifiers: Congestive heart failure chronicity: chronic Qualified Code(s): I50.22 - Chronic systolic (congestive) heart failure Is this a current diagnosis for this admission?: YesPlan: Clinically compensated at this time. Continue Lasix 20 mg p.o. twice daily. Restart Toprol-XL 12.5 mg twice daily as per recent discharge summary, although this was not an recent medication reconciliation. According to recent discharge summary patient should have been on lisinopril 2.5 mg twice daily as well but this was not an med reconciliation. I will hold off on lisinopril for now secondary to impaired renal function and low blood pressure. Patient is normally followed by Dr. Wills of cardiology. (6) Acute renal failure superimposed on stage 3 chronic kidney disease Is this a current diagnosis for this admission?: YesPlan: Normally followed by Dr. Jackson of nephrology. Hold off on TWIN inhibitor for now. (7) Anticoagulated Is this a current diagnosis for this admission?: Yes (8) Diabetes mellitus type 2 in nonobese Is this a current diagnosis for this admission?: Yes (9) Obstructive sleep apnea Is this a current diagnosis for this admission?: Yes (10) Paroxysmal a-fib Is this a current diagnosis for this admission?: YesPlan: Currently in sinus rhythm. Continue Eliquis. Restart Toprol-XL. - Time Time Spent with patient: 35 or more minutes Anticipated discharge: Home Within: within 72 hours
[2017-04-18] MEDS: ALBUTEROL SULFATE 0.083% NEB 2.5 MG/3 ML AMPUL NEB PRN (11:21)
[2017-04-18] MEDS ORDERED: FUROSEMIDE INJ/PF 20 MG/2 ML SDV ONE (11:25)
[2017-04-18] MEDS ORDERED: FUROSEMIDE INJ/PF 20 MG/2 ML SDV IV ONE (12:00)
[2017-04-18] MEDS ORDERED: MIDODRINE HCL 5 MG TABLET PO ONE (12:30)
[2017-04-18] MEDS: CYANOCOBALAMIN (VITAMIN B-12) 1,000 MCG TABLET PO SCH (17:31)
[2017-04-18] MEDS: MIDODRINE HCL 5 MG TABLET PO SCH (17:31)
[2017-04-18] MEDS: ATORVASTATIN CALCIUM 40 MG TABLET PO SCH (21:40)
[2017-04-18] MEDS: FUROSEMIDE INJ/PF 20 MG/2 ML SDV IV SCH (21:40)
[2017-04-18] MEDS: METOPROLOL SUCCINATE 25 MG TAB.SR.24H PO SCH (22:38)
[2017-04-19 04:54] LABS: ABSOLUTE BASOPHILS # (AUTO) 0.1 10^3/uL (0.0-0.2); ABSOLUTE EOSINOPHILS # (AUTO) 0.2 10^3/uL (0.0-0.6); ABSOLUTE LYMPHOCYTES (AUTO) 1.3 10^3/uL (0.5-4.7); ABSOLUTE MONOCYTES (AUTO) 0.7 10^3/uL (0.1-1.4); ABSOLUTE NEUT (AUTO) 5.8 10^3/uL (1.7-8.2); BASOPHILS % (AUTO) 1.5 % (0-2); EOSINOPHILS % (AUTO) 1.9 % (0-6); HEMATOCRIT 35.7 % (37.9-51.0); HEMOGLOBIN 10.9 g/dL (13.5-17.0); LYMPHOCYTES % (AUTO) 15.7 % (13-45); MEAN CORPUSCULAR HEMOGLOBIN 24.2 pg (27.0-33.4); MEAN CORPUSCULAR HGB CONC 30.5 g/dL (32.0-36.0); MEAN CORPUSCULAR VOLUME 79 fl (80-97); MONOCYTES % (AUTO) 9.1 % (3-13); RED BLOOD COUNT 4.51 10^6/uL (4.35-5.55); RED CELL DISTRIBUTION WIDTH 21.1 % (11.5-14.0); SEGMENTED NEUTROPHILS % (AUTO) 71.8 % (42-78); WHITE BLOOD COUNT 8.1 10^3/uL (4.0-10.5)
[2017-04-19 05:05] LABS: ANION GAP 10 (5-19); BLOOD UREA NITROGEN 45 mg/dL (7-20); CALCIUM 9.7 mg/dL (8.4-10.2); CARBON DIOXIDE 27 mmol/L (22-30); CHLORIDE 106 mmol/L (98-107); CREATININE RESULT 2.12 mg/dL (0.52-1.25); GLUCOSE 174 mg/dL (75-110); POTASSIUM 4.2 mmol/L (3.6-5.0); SODIUM 142.8 mmol/L (137-145)
[2017-04-19] MEDS: ALBUTEROL SULFATE 0.083% NEB 2.5 MG/3 ML AMPUL NEB PRN ×3 (06:41→18:20)
[2017-04-19] MEDS: MIDODRINE HCL 5 MG TABLET PO SCH (07:07)
[2017-04-19] MEDS: IPRATROPIUM/ALBUTEROL 0.5-2.5 MG/3 ML AMPUL NEB SCH ×2 (08:07→14:06)
--- NOTE | 2017-04-19 08:30 | RADIOLOGY REPORT (SQ) ---
EXAM DESCRIPTION: CHEST SINGLE VIEW COMPLETED DATE/TIME: 04/19/2017 7:40 am REASON FOR STUDY: CHF, PNA COMPARISON: 04/17/2017 EXAM PARAMETERS: NUMBER OF VIEWS: One view. TECHNIQUE: Single frontal radiographic view of the chest acquired. RADIATION DOSE: NA LIMITATIONS: None. FINDINGS: LUNGS AND PLEURA: The previously described mi basilar parenchymal opacities appear essenti ally unchanged. MEDIASTINUM AND HILAR STRUCTURES: No masses. Contour normal. HEART AND VASCULAR STRUCTURES: Cardiac silhouette remains mildly enlarged. There is mild pulmonary v ascular congestion. BONES: No acute findings. HARDWARE: None in the chest. OTHER: No other significant finding. IMPRESSION: No significant interval change. Findings as noted above TECHNICAL DOCUMENTATION: JOB ID: [id number]
[2017-04-19] MEDS ORDERED: GLIMEPIRIDE 4 MG TABLET PO ONE (09:30)
[2017-04-19] MEDS: FUROSEMIDE INJ/PF 20 MG/2 ML SDV IV SCH ×2 (09:45→21:42)
[2017-04-19] MEDS: CHOLECALCIFEROL (D3) 1,000 UNIT TABLET PO SCH (09:54)
[2017-04-19] MEDS: APIXABAN 2.5 MG TABLET PO SCH ×2 (09:55→17:32)
[2017-04-19] MEDS: DOXYCYCLINE HYCLATE 100 MG TABLET PO SCH (09:56)
[2017-04-19] MEDS: SITAGLIPTIN PHOSPHATE 50 MG TABLET PO SCH (09:58)
[2017-04-19] MEDS: METOPROLOL SUCCINATE 25 MG TAB.SR.24H PO SCH (09:58)
--- NOTE | 2017-04-19 10:37 | PDOC PROGRESS REPORT ---
Subjective Progress Note for:: 04/19/17 Subjective:: Patient continues to have brief episodes of shortness of breath and anxiety. He does not have chest pain per se. He denies nausea or vomiting. He denies fever or chills. Physical Exam Vital Signs: Temp Pulse Resp BP Pulse Ox 96.6 F L 98 24 H 123/80 99 04/19/17 09:29 04/19/17 09:41 04/19/17 09:41 04/19/17 09:29 04/19/17 09:41 Intake & Output 04/18/17 04/19/17 04/20/17 06:59 06:59 06:59 Intake Total 730 1223 Output Total 300 600 Balance 430 623 Weight 81.11 kg 82.2 kg GENERAL: No acute distress HEENT: Conjunctiva clear, nonicteric, moist mucous membranes, no JVD, midline trachea RESPIRATORY: Faint bilateral wheezes, good air excursion CARDIAC: Regular rate and rhythm, no murmurs/gallops/rubs ABDOMEN: Soft, nondistended, nontender, positive bowel sounds, no rebound, no guarding EXTREMETIES: No edema, cyanosis, clubbing NEUROLOGIC: Alert, oriented to person/place/time, CN's grossly intact, no focal deficits SKIN: No rash, wounds PSYCH: Normal mood, normal affect Results Laboratory Results: 04/19/17 04:11 04/19/17 04:11 04/19/17 04/19/17 04:11 04:11 WBC 8.1 RBC 4.51 Hgb 10.9 L Hct 35.7 L MCV 79 L MCH 24.2 L MCHC 30.5 L RDW 21.1 H Plt Count 237 Seg Neutrophils % 71.8 Lymphocytes % 15.7 Monocytes % 9.1 Eosinophils % 1.9 Basophils % 1.5 Absolute Neutrophils 5.8 Absolute Lymphocytes 1.3 Absolute Monocytes 0.7 Absolute Eosinophils 0.2 Absolute Basophils 0.1 Sodium 142.8 Potassium 4.2 Chloride 106 Carbon Dioxide 27 Anion Gap 10 BUN 45 H Creatinine 2.12 H Est GFR ( Amer) 38 L Est GFR (Non-Af Amer) 31 L Glucose 174 H Calcium 9.7 04/18/17 04/18/17 02:39 08:44 Troponin I 0.034 0.028 Impressions: Chest X-Ray 04/19/17 07:00 IMPRESSION: No significant interval change. Findings as noted above Assessment & Plan - Diagnosis (1) Acute on chronic respiratory failure with hypoxemia Is this a current diagnosis for this admission?: YesPlan: Continue oxygen supplementation. Patient is on home oxygen at baseline. He is followed by Dr. Hastings of pulmonary medicine as an outpatient. He is also on nocturnal CPAP for obstructive sleep apnea. (2) Basal pneumonia of both lungs Is this a current diagnosis for this admission?: YesPlan: Likely bacterial. Discontinue IV antibiotics. Start oral doxycycline. Blood cultures no growth. (3) COPD exacerbation Is this a current diagnosis for this admission?: YesPlan: Continue duo nebs every 6 hours while awake. Albuterol nebulizer treatments as needed. (4) Elevated LFTs Is this a current diagnosis for this admission?: YesPlan: Possibly secondary to passive congestion from decompensated CHF. Check viral hepatitis panel as this has not been done in the past. (5) Systolic CHF Qualifiers: Congestive heart failure chronicity: chronic Qualified Code(s): I50.22 - Chronic systolic (congestive) heart failure Is this a current diagnosis for this admission?: YesPlan: Acutely decompensated. EF 20-25% with severe global hypokinesis on echocardiogram 12/30/2016. Continue Lasix 20 mg IV every 12 hours. Continue Toprol-XL 12.5 mg twice daily as per recent discharge summary, although he states he was not taking this prior to this admission. According to recent discharge summary patient should have been on lisinopril 2.5 mg twice daily, although patient states she was not taking this. I will hold off on lisinopril for now secondary to impaired renal function and low blood pressure. Patient is normally followed by Dr. Wills of cardiology. I have discussed patient with Dr. Alba of cardiology and he will review patient's outpatient record to see if he has had recent stress test or other perfusion study. I am concerned that patient's bouts of dyspnea and anxiety may be anginal equivalent. (6) Acute renal failure superimposed on stage 3 chronic kidney disease Is this a current diagnosis for this admission?: YesPlan: Normally followed by Dr. Jackson of nephrology. Hold off on TWIN inhibitor for now. Monitor renal function closely with aggressive diuresis. (7) Anticoagulated Is this a current diagnosis for this admission?: YesPlan: Decrease Eliquis to 2.5 mg twice daily secondary to renal impairment. (8) Diabetes mellitus type 2 in nonobese Is this a current diagnosis for this admission?: YesPlan: Continue Amaryl. Discontinue Januvia as patient states he no longer takes this medication. Sliding scale insulin coverage. (9) Obstructive sleep apnea Is this a current diagnosis for this admission?: YesPlan: Continue home CPAP once family brings device in. (10) Paroxysmal a-fib Is this a current diagnosis for this admission?: YesPlan: Currently in sinus rhythm. Decrease Eliquis to 2.5 mg twice daily secondary to renal impairment. Continue Toprol-XL 12.5 mg twice daily. - Time Time Spent with patient: 35 or more minutes Anticipated discharge: Home Within: within 48 hours
[2017-04-19] MEDS: INSULIN LISPRO 100 UNIT/ML 3 ML VIAL SUBCUT PRN ×2 (12:04→17:33)
[2017-04-19] MEDS: CYANOCOBALAMIN (VITAMIN B-12) 1,000 MCG TABLET PO SCH (17:32)
[2017-04-19] MEDS ORDERED: LEVALBUTEROL HCL NEB 0.63 MG/3 ML AMPUL NEB PRN (20:17)
[2017-04-19] MEDS: PROMETHAZINE HCL 25 MG TABLET PO PRN (21:42)
[2017-04-19] MEDS ORDERED: [UNRECOGNIZED DRUG - MIXTURE] PO SCH (22:00)
--- NOTE | 2017-04-19 22:22 | CONSULTATION REPORT E ---
Consultation Report NAME: BAM MORRISON : 1950 AGE: 66Y DATE: 04/19/2017 401 A TO: DIPAK BHAKTA M.D. FROM: JT MALCOLM M.D. Requesting Physician REASON FOR CONSULTATION: Patient with symptoms of [id number] biventricular systolic heart failure and history of cardiomyopathy. HISTORY OF PRESENT ILLNESS: The patient is a 66-year-old male with known history of hypertension and dilated cardiomyopathy with severely reduced LV ejection fraction with several episodes of [id number]-[id number] systolic heart failure, history of diabetes mellitus type 2, history of gout and history of paroxysmal atrial fibrillation with history of ventricular tachycardia who since Thursday has been having progressively increasing shortness of breath with PND, orthopnea and leg edema. There is no chest pain or discomfort. The patient has been having cough which is dry and is more when he lies down and is resolves when he sits up, which makes it a PND equivalent cough. Although he has not had palpitations in the past, yesterday in the hospital he had some palpitations and dizziness. He has a paroxysmal atrial fibrillation and is on Eliquis. There are no bleeding complications. There are no TIA or CVA symptoms. There is no clear-cut syncope. PAST MEDICAL HISTORY: Positive for hypertension. He also has a history of mitral valve prolapse with trace mitral regurgitation which did not show up on the prior echo. The troponin elevation was diagnosed as non-ST elevation PR and was transferred to [facility] where his Lexiscan Cardiolite stress test showed no reversible ischemia and no scar. The LV ejection fraction was severely reduced. He did not have a cardiac catheterization, since most likely the target was a supply-demand mismatch secondary to troponin I leak due to congestive heart failure. He had an echocardiogram with LV ejection fraction of 20% to 25%. He has no history of coronary artery disease and no history of PR. He has a history of nonsustained ventricular tachycardia with no recurrence. He also has a history of paroxysmal atrial fibrillation. He has a history of diabetes mellitus type 2 and he has a history of chronic kidney disease stage 3. He also has a history of obstructive sleep apnea and uses CPAP. He also has a history of gout. There is no history of asthma or COPD. There is no history of thyroid disease. As mentioned earlier, in December 2016 he had congestive heart failure and had elevated troponin I and was diagnosed with non-ST elevation PR and was transferred to [facility] where he underwent Lexiscan Cardiolite stress test which showed no reversible ischemia and no scar and showed cardiomyopathy with LV ejection fraction of 20%. He has no history of TIA or CVA. There is no recent recurrence of atrial fibrillation. It is noted that in [place] he was diagnosed with having supraventricular tachycardia. He had a right heart catheterization where the cardiac index was 1.4 L/min/m2 and the patient's right ventricular systolic pressure of 62 and a wedge of 37. He was asked to go back to [place] in 45 days for consideration of placement of an AICD for which he would probably be referred to [place]. He has no history of anxiety and depression. PAST SURGICAL HISTORY: 1. Left hand wrist surgery. 2. Vasectomy. 3. Cauterization of nosebleeds. 4. He also had right rotator cuff surgery. 5. Right heart catheterization. ALLERGIES: No known drug allergies. SOCIAL HISTORY: The patient does not smoke. There is no history of EtOH abuse. ADVANCED DIRECTIVES: The patient is a FULL CODE. His is his surrogate healthcare decision maker. MEDICATIONS: 1. Tylenol 650 mg p.o. q.8 h. p.r.n. 2. Albuterol nebulizer treatment 2.5 mg q.4 h. p.r.n. 3. Eliquis 2.5 mg p.o. b.i.d. 4. Atorvastatin 40 mg p.o. at bedtime. 5. Vitamin D 1000 units p.o. q.12 h. 6. Cyanocobalamin 1000 mcg p.o. every evening. 7. Hypoglycemic precautions with glutose 40% gel 15 gm p.o. and 30 gm p.o. p.r.n. respectively for hypoglycemia. 8. Dextrose 50% 12.5 gm IV and 25 gm IV p.r.n. hypoglycemia. 9. Doxycycline 100 mg p.o. q.12 h. 10. Lasix 20 mg IV q.12 h. 11. Glimepiride 2 mg p.o. with breakfast. 12. Glucagon 1 mg IM p.r.n. 13. Robitussin 200 mg p.o. q.4 h. p.r.n. 14. Accu-Chek before meals t.i.d. and adjust with sliding scale regular insulin coverage. 15. Ipratropium albuterol 3 mL nebulizer treatment q.6 h. while awake. 16. Iron polysaccharides 150 mg p.o. at bedtime. 17. Metoprolol 12.5 mg p.o. q.12 h. 18. Tramadol (Ultram) 50 mg p.o. q.8 h. p.r.n. 19. Eliquis 2.5 mg p.o. b.i.d. 20. Atorvastatin 40 mg p.o. at bedtime. FAMILY HISTORY: Positive for diabetes mellitus and hypertension. REVIEW OF SYSTEMS: CONSTITUTIONAL: Denies any fever, chills or rigors. Complains of generalized fatigue and weakness. HEENT: Head: Denies head injury or headaches, no dizziness. Eyes: No history of amblyopia or diplopia. No history of amaurosis fugax. Ears: No history of hearing loss, no history of tinnitus, no history of recurrent ear infections, no vertigo. Nose: No history of hay fever. Past history of nosebleeds for which he has had cauterization with no recurrence. There is no history of nasal polyps. Mouth: No history of altered taste sensation, no history of ulcers in the mouth, no bleeding from the gums. Throat: There is no odynophagia or dysphagia, no history of recurrent sore throats. SKIN: No history of pruritus. No history of psoriasis. No history of skin cancer. No history of yellowish discoloration of the skin. NECK: No history of painless or painful swelling of the neck. No lymphadenopathy. No goiter. No history of C-spine arthritis. LUNGS: No history of asthma or COPD. History of sleep apnea and uses CPAP. No history of pulmonary embolism. No history of pleuritic chest pain. The patient has dry cough nonproductive and the cough seems to be PND equivalent. CARDIAC: History of hypertension. History of dilated cardiomyopathy. No history of PR or anginal symptoms. History of multiple admissions for csvml-ox-turxown systolic heart failure. Although he seems to think that he has paroxysmal atrial fibrillation, there is no documentation of that; in fact, he has had SVT, but for some reason he is on Eliquis. He has a history of nonsustained ventricular tachycardia in the past with no recurrence. The patient is being evaluated for an AICD placement. He had recent symptoms of decompensation of systolic heart failure with a history of PND, orthopnea and leg edema and shortness of breath. No syncope. GASTROINTESTINAL: History of GERD present which is occasional and uses pantoprazole on a p.r.n. basis. There is no history of fatty food intolerance. No history of GI bleed. No history of altered bowel movements. No history of abdominal pain. No history of jaundice. No history of cirrhosis. MUSCULOSKELETAL: Denies arthritis or collagen vascular disease. METABOLIC: He has a history of hyperlipidemia and also has a history of gout. RENAL: History of chronic kidney disease stage 3. No history of symptoms of UTI. No history of hematuria, polyuria or dysuria. The patient has a history of elevated PSA but has been told he does not have prostate cancer. CENTRAL NERVOUS SYSTEM: No history of TIA or CVA. No history of headaches, migraines or seizures. History of sleep apnea on CPAP. No history of gait imbalance. PSYCHIATRIC: No history of anxiety or depression. No history of homicidal or suicidal ideation. VASCULAR: No history of calf or buttock claudication. No history of DVT. HEMATOLOGICAL: No history of bleeding diathesis. No history of clotting disorders. PHYSICAL EXAMINATION: GENERAL: Patient is well-built and well-nourished in no acute distress. He is well groomed. He does have orthopnea. VITAL SIGNS: He is afebrile with a temperature of 96.6 degrees Fahrenheit, pulse is 93 beats per minute, blood pressure is 123/80, respirations are 22 per minute, 02 sats are 100% on 3 L nasal cannula. HEENT: Head is atraumatic, normocephalic. Eyes: Pupils are equal, round, regular, reactive to light and accommodation. Extraocular movements are normal. There is no conjunctival pallor. There is no scleral icterus. Ears: Tympanic membranes are intact. External auditory canals are clear. There are no lesions in the pinnae. Nose: There is no deviated nasal septum. There is no inflammation of the nasal mucous membranes. Mouth: Mucous membranes of the mouth are moist. Tongue is moist. There are no ulcers. There is no bleeding from the gums. Throat: There is no redness of the oropharynx. There are no exudates. SKIN: There are no skin rashes. There is no petechia or ecchymosis. There are no skin lesions. NECK: Supple. There is mild JVD present. There is no lymphadenopathy. Carotids are equal. There is no bruit. Trachea is central. LUNGS: Show bibasilar rales of CHF. There is no chest wall tenderness. There are no rhonchi or wheezing. HEART: S1 and S2 are heard. There is no S3 gallop. There is no S4 gallop. There is a systolic murmur in the left sternal border and the apex. There is no rub. ABDOMEN: Soft, nontender. There is no hepatosplenomegaly. Bowel sounds are well heard. There are no tender areas or masses. There is rebound, guarding or rigidity. EXTREMITIES: Femorals are diminished. There are no femoral bruits. Leg pulses are slightly diminished. There is mild pedal edema. There is no DVT or cellulitis. There is no cyanosis or clubbing. There is no calf tenderness. Capillary refill is normal. CENTRAL NERVOUS SYSTEM: The patient is conscious, awake, alert, oriented x3 with no focal deficits. PSYCHIATRIC: The patient's judgment and insight are intact. His affect is normal. DIAGNOSTIC TEST RESULTS: The patient's EKG shows sinus tachycardia, probable left atrial enlargement, left anterior fascicular block, nonspecific T abnormalities in lateral leads, borderline prolonged QTC. The patient's chest x-ray shows mild vascular congestion, bilateral left lower lobe pneumonia. The patient's white count is 8100, hemoglobin is 10.9, hematocrit is 35.7 and platelet count is 237,000. The patient's sodium is 142.8, potassium 4.2, chloride 106, CO2 27, the patient's BUN is 45, creatinine is 2.12, GFR is reduced at 38 which is chronic kidney disease stage 3, his glucose is 174, calcium is 9.7. IMPRESSION: 1. Ekkcz-pu-wbrxjeq systolic heart failure. The patient continues to be in heart failure. With the dilated cardiomyopathy would stop the patient's Lopressor and place the patient on Toprol XL at 25 mg q.12 h. and also start the patient on small dose of ARB. In the past the patient has had problems with blood pressure with lisinopril. 2. Dilated cardiomyopathy with severely reduced LV ejection fraction. Will repeat the patient's echocardiogram and if *------* once the patient's heart failure is compensated, then would recommend that the patient be referred for an AICD placement. 3. No evidence of coronary artery disease. The patient's Lexiscan Cardiolite stress test in [place] was negative for reversible ischemia with an LV ejection fraction of 30%. 4. History of hypertension which is very well controlled. 5. Obstructive sleep apnea. On CPAP. 6. History of SVT with no recurrence. Question atrial fibrillation, paroxysmal. The patient is on Eliquis. 7. History of nonsustained ventricular tachycardia with no recurrence. 8. Diabetes mellitus type 2, non-insulin dependent. 9. Chronic kidney disease stage 3. 10. History of MVP not reported on echo of 12/22 at [facility]. 11. Hyperlipidemia. 12. Moderate pulmonary hypertension by echo. The right ventricular systolic pressure was between 50-60 by echo of December 2016. 13. History of gout. 14. Anemia, most likely iron deficiency. 15. Possible bibasilar pneumonia. RECOMMENDATIONS: As mentioned earlier, will change the patient to Toprol XL 25 mg p.o. q.12 h. and also will start the patient on an ARB, Cozaar, at 25 mg p.o. daily. Would increase the patient's Lasix to 20 mg IV q.8 h. Continue his other medications. Continue antibiotics. Note: Would also recommend discontinuing the patient's nebulizer treatment since this can precipitate ventricular tachycardia or an SVT or atrial fibrillation, since the patient has no history of asthma or COPD. Note: The patient was seen at 9 a.m. on 04/19/2017. Note: Forty minutes spent on the patient with more than 50% of the time spent on direct patient care. His medications have been reviewed and adjusted. Discussed with the other caregiving providers on this case. Other caregiving providers were discussed with this patient. Note: The case needed highly complex medical decision making. Will follow with you. Thanking you. DICTATING PHYSICIAN: DIPAK BHAKTA M.D. [id number] PHY#: [id number] ID: [id number] JOB#: [id number] ACCT: [id number] cc:DIPAK BHAKTA M.D. >
[2017-04-20] MEDS: METOPROLOL SUCCINATE 25 MG TAB.SR.24H PO SCH ×3 (00:02→21:12)
[2017-04-20] MEDS: DOXYCYCLINE HYCLATE 100 MG TABLET PO SCH ×3 (00:02→21:12)
[2017-04-20] MEDS: IRON POLYSACCHARIDES COMPLEX 150 MG CAPSULE PO SCH ×2 (00:03→21:12)
[2017-04-20] MEDS: ATORVASTATIN CALCIUM 40 MG TABLET PO SCH ×2 (00:03→21:12)
[2017-04-20] MEDS: CHOLECALCIFEROL (D3) 1,000 UNIT TABLET PO SCH ×3 (00:03→21:12)
[2017-04-20] MEDS: LOSARTAN POTASSIUM 25 MG TABLET PO SCH ×3 (00:03→21:12)
--- NOTE | 2017-04-20 01:09 | RADIOLOGY REPORT (SQ) ---
EXAM DESCRIPTION: CT HEAD WITHOUT COMPLETED DATE/TIME: 04/20/2017 12:56 am REASON FOR STUDY: INPATIENT STROKE ALERT PROTOCOL/SUSPECTED STROKE COMPARISON: 12/29/2016. TECHNIQUE: Axial images acquired through the brain without intravenous contrast. Images reviewed wi th bone, brain and subdural windows. Images stored on PACS. All CT scanners at this facility use dose modulation, iterative reconstruction, and/or weight based d osing when appropriate to reduce radiation dose to as low as reasonably achievable (ALARA). [facility]: Dose Right [facility]: CareDose [facility]: Dose Right [facility]: Teradose 4D [facility]: [employer] RADIATION DOSE: mGy. LIMITATIONS: None. FINDINGS: VENTRICLES: Normal size and contour. CEREBRUM: No masses. No hemorrhage. No midline shift. Normal reilly/white matter differentiation. N o evidence for acute infarction. CEREBELLUM: No masses. No hemorrhage. No alteration of density. No evidence for acute infarction. EXTRAAXIAL SPACES: Chronic 7 cm left posterior parieto-occipital arachnoid cyst pattern persists with out change compared with prior exam, 12/29/2016. ORBITS AND GLOBE: No intra- or extraconal masses. Normal contour of globe without masses. CALVARIUM: No fracture. PARANASAL SINUSES: No fluid or mucosal thickening. SOFT TISSUES: No mass or hematoma. OTHER: No other significant finding. IMPRESSION: No acute findings. Chronic 7 cm left posterior parieto-occipital arachnoid cyst pattern is stable. COMMENT: This report was called to 4N Nurse Estrada at12:59 on 04/20/2017. TECHNICAL DOCUMENTATION: JOB ID: [id number] Quality ID # [id number]: Final reports with documentation of one or more dose reduction techniques (e.g., Au tomated exposure control, adjustment of the mA and/or kV according to patient size, use of iterative reconstruction technique) 2010 [employer]- All Rights Reserved
[2017-04-20 02:00] LABS: ABSOLUTE BASOPHILS # (AUTO) 0.1 10^3/uL (0.0-0.2); ABSOLUTE EOSINOPHILS # (AUTO) 0.1 10^3/uL (0.0-0.6); ABSOLUTE MONOCYTES (AUTO) 0.6 10^3/uL (0.1-1.4); ABSOLUTE NEUT (AUTO) 7.7 10^3/uL (1.7-8.2); BASOPHILS % (AUTO) 1.4 % (0-2); EOSINOPHILS % (AUTO) 1.5 % (0-6); HEMATOCRIT 35.3 % (37.9-51.0); HEMOGLOBIN 10.8 g/dL (13.5-17.0); HGB HCT DIFFERENCE -2.9; MEAN CORPUSCULAR HEMOGLOBIN 24.1 pg (27.0-33.4); MEAN CORPUSCULAR HGB CONC 30.7 g/dL (32.0-36.0); MEAN CORPUSCULAR VOLUME 79 fl (80-97); MONOCYTES % (AUTO) 6.8 % (3-13); RED CELL DISTRIBUTION WIDTH 21.3 % (11.5-14.0); SEGMENTED NEUTROPHILS % (AUTO) 80.3 % (42-78); WHITE BLOOD COUNT 9.5 10^3/uL (4.0-10.5)
[2017-04-20 02:11] LABS: PARTIAL THROMBOPLASTIN TIME 35.7 SEC (23.5-35.8); PROTHROMBIN TIME 19.9 SEC (11.4-15.4)
[2017-04-20 02:17] LABS: ALANINE AMINOTRANSFERASE 147 U/L (21-72); ALBUMIN 3.2 g/dL (3.5-5.0); ALKALINE PHOSPHATASE 230 U/L (38-126); ANION GAP 13 (5-19); ASPARTATE AMINO TRANSFERASE 97 U/L (17-59); BILIRUBIN,DIRECT 0.5 mg/dL (0.0-0.4); BILIRUBIN,TOTAL 1.3 mg/dL (0.2-1.3); BLOOD UREA NITROGEN 44 mg/dL (7-20); CALCIUM 9.8 mg/dL (8.4-10.2); CARBON DIOXIDE 25 mmol/L (22-30); CHLORIDE 105 mmol/L (98-107); CREATINE KINASE 76 U/L (55-170); CREATININE RESULT 1.84 mg/dL (0.52-1.25); GLUCOSE 140 mg/dL (75-110); POTASSIUM 4.1 mmol/L (3.6-5.0); SODIUM 142.5 mmol/L (137-145); TOTAL PROTEIN 5.9 g/dL (6.3-8.2)
[2017-04-20 02:30] LABS: CREATINE KINASE MB 1.08 ng/mL (<4.55); TROPONIN I 0.034 ng/mL
[2017-04-20 04:03] LABS: ADD ON TESTING BLD IN LAB ACKNOWLEDGE
--- NOTE | 2017-04-20 04:06 | Progress Note ---
Provider Note Provider Note: April 20, 2017: Shortly after midnight, I was notified by patient's floor nurse that he began complaining of right-sided numbness and tingling, upper and lower extremity, and somewhat on the face. Stroke code was called. Shortly thereafter, in the CT scan portion of the radiology department in the emergency room, patient was examined, with slight paresthesias to light touch involving the right side of face, upper and lower extremities. Cranial nerves II through XII are grossly intact. Motor function of the upper and lower extremities 5/5 on the left, and very subtly weaker, the weakness still detectable, for right upper and lower extremities. Exam at 1:10 AM. According to patient, he last felt normal approximately 11 PM on the as he lay down to sleep in his room on the floor. CT scan of the brain was reviewed, with stable cyst seen on prior study. No evidence of stroke or hemorrhage. Confirmed by radiologist interpretation. Repeat exam at 1:27 AM at the patient's bedside in his floor room revealed neurologic deficits had basically resolved, including including both light touch sensation and motor strength. Due to combination of rapidly resolving neurologic deficits, along with patient being on Eliquis, patient not a candidate for TPA. Discussed with patient, who concurs. We will proceed with with usual imaging studies, along with lipid panel, as for stroke/TIA protocol. Discussed with patient in layperson's terms. He agrees. 45 minutes critical care time spent in evaluation management of patient, including chart review, repeat evaluations of the patient, multiple discussions with nursing staff, along with entering multiple orders into the electronic health record.
[2017-04-20 04:34] LABS: CHOLESTEROL 106.21 mg/dL (0-200); Direct HDL 29 mg/dL (>40); TRIGLYCERIDES 104 mg/dL (<150)
[2017-04-20 04:44] LABS: DIRECT LDL 60 mg/dL (<100)
[2017-04-20] MEDS: FUROSEMIDE INJ/PF 20 MG/2 ML SDV IV SCH ×3 (05:42→21:12)
--- NOTE | 2017-04-20 07:55 | EKG REPORT ---
SEVERITY:- ABNORMAL ECG - SINUS RHYTHM MULTIPLE PREMATURE COMPLEXES, SUPRAVEN PROBABLE LEFT ATRIAL ABNORMALITY LEFT ANTERIOR FASCICULAR BLOCK BORDERLINE T WAVE ABNORMALITIES PROLONGED QT INTERVAL OLD ANTERIOR MT : Confirmed by: Alfie López MD 20-Apr-2017 07:54:36
--- NOTE | 2017-04-20 09:17 | RADIOLOGY REPORT (SQ) ---
EXAM DESCRIPTION: CHEST SINGLE VIEW COMPLETED DATE/TIME: 04/20/2017 8:54 am REASON FOR STUDY: CHF, PNA COMPARISON: 04/19/2017 EXAM PARAMETERS: NUMBER OF VIEWS: One view. TECHNIQUE: Single frontal radiographic view of the chest acquired. RADIATION DOSE: NA LIMITATIONS: None. FINDINGS: LUNGS AND PLEURA: Resolution previous noted abnormal density in the lungs. Lungs are now clear. No effusions. MEDIASTINUM AND HILAR STRUCTURES: No masses. Contour normal. HEART AND VASCULAR STRUCTURES: Mild cardiomegaly. Minimal vascular congestion. BONES: No acute findings. HARDWARE: None in the chest. OTHER: No other significant finding. IMPRESSION: 1. Resolution of previous noted abnormal density in the lungs. 2. Mild cardiomegaly and minimal vascular congestion. TECHNICAL DOCUMENTATION: JOB ID: [id number]
[2017-04-20] MEDS: TRAMADOL HCL 50 MG TABLET PO PRN (09:50)
[2017-04-20] MEDS: GLIMEPIRIDE 4 MG TABLET PO SCH (09:51)
[2017-04-20] MEDS: INSULIN LISPRO 100 UNIT/ML 3 ML VIAL SUBCUT PRN (09:52)
[2017-04-20] MEDS: APIXABAN 2.5 MG TABLET PO SCH ×2 (09:54→17:40)
[2017-04-20] MEDS ORDERED: DIPHENHYDRAMINE HCL 50 MG/ML VIAL IV ONE (11:27)
--- NOTE | 2017-04-20 13:08 | RADIOLOGY REPORT (SQ) ---
EXAM DESCRIPTION: CAROTID DOPPLER COMPLETED DATE/TIME: 04/20/2017 12:49 pm REASON FOR STUDY: tia vs cva COMPARISON: None. TECHNIQUE: Grayscale ultrasound, Doppler velocity and spectra, and color Doppler images acquired of the extra-cranial carotid and vertebral arteries. Images stored on PACS. LIMITATIONS: None. FINDINGS: RIGHT CAROTID CCA Velocities: Within normal limits. ICA Velocities Peak systolic 0.70 m/s. End diastolic 0.35 m/s. Proximal ICA/CCA peak systolic ratio 2.0. Homogeneous plaque in the bulb. LEFT CAROTID CCA Velocities: Within normal limits. ICA Velocities Peak systolic 0.41 m/s. End diastolic 0.26 m/s. Proximal ICA/CCA peak systolic ratio is 0.7. Spectra normal. No significant plaque. VERTEBRAL ARTERIES: Antegrade flow. Normal waveforms. SUBCLAVIAN ARTERIES: Not imaged. OTHER: No other significant finding. IMPRESSION: NO HEMODYNAMICALLY SIGNIFICANT STENOSIS. COMMENT: Quality ID #[id number]: Velocity criteria are extrapolated from the diameter data as defined by t he Society of Radiologists in Ultrasound Consensus Conference. Radiology 2003: 229; 340-346. TECHNICAL DOCUMENTATION: JOB ID: [id number] [employer]- All Rights Reserved
[2017-04-20] MEDS: ASPIRIN 81 MG TABLET, ENT COATED PO SCH (13:30)
--- NOTE | 2017-04-20 15:10 | PDOC PROGRESS REPORT ---
Subjective Progress Note for:: 04/20/17 Subjective:: Patient began having unusual neurologic symptoms last night around midnight. Today he is having involuntary movement as well as some agitation. Symptoms began about an hour after having a dose of Phenergan last night. Physical Exam Vital Signs: Temp Pulse Resp BP Pulse Ox 97.3 F 58 L 18 107/76 97 04/20/17 12:00 04/20/17 12:00 04/20/17 12:00 04/20/17 12:00 04/20/17 12:00 Intake & Output 04/19/17 04/20/17 04/21/17 06:59 06:59 06:59 Intake Total 1223 550 360 Output Total 600 600 400 Balance 623 -50 -40 Weight 82.2 kg 82.9 kg GENERAL: No acute distress HEENT: Conjunctiva clear, nonicteric, moist mucous membranes, no JVD, midline trachea RESPIRATORY: Clear to auscultation bilaterally CARDIAC: Regular rate and rhythm, no murmurs/gallops/rubs ABDOMEN: Soft, nondistended, nontender, positive bowel sounds, no rebound, no guarding EXTREMETIES: No edema, cyanosis, clubbing NEUROLOGIC: Alert, oriented to person/place/time, CN's grossly intact, no focal deficits. Occasional involuntary movement of upper extremities SKIN: No rash, wounds PSYCH: Normal mood, normal affect Results Laboratory Results: 04/20/17 01:52 04/20/17 01:52 04/20/17 04/20/17 04/20/17 01:52 01:52 01:52 WBC 9.5 RBC 4.50 Hgb 10.8 L Hct 35.3 L MCV 79 L MCH 24.1 L MCHC 30.7 L RDW 21.3 H Plt Count 254 Seg Neutrophils % 80.3 H Lymphocytes % 10.0 L Monocytes % 6.8 Eosinophils % 1.5 Basophils % 1.4 Absolute Neutrophils 7.7 Absolute Lymphocytes 1.0 Absolute Monocytes 0.6 Absolute Eosinophils 0.1 Absolute Basophils 0.1 Sodium 142.5 Potassium 4.1 Chloride 105 Carbon Dioxide 25 Anion Gap 13 BUN 44 H Creatinine 1.84 H Est GFR ( Amer) 44 L Est GFR (Non-Af Amer) 37 L Glucose 140 H Calcium 9.8 Total Bilirubin 1.3 AST 97 H ALT 147 H Alkaline Phosphatase 230 H Total Protein 5.9 L Albumin 3.2 L Triglycerides 104 Cholesterol 106.21 LDL Cholesterol Direct 60 VLDL Cholesterol 21.0 HDL Cholesterol 29 L 04/18/17 04/18/17 04/20/17 02:39 08:44 01:52 Creatine Kinase 76 CK-MB (CK-2) Troponin I 0.034 0.028 NT-Pro-B Natriuret Pep 04/20/17 01:52 Creatine Kinase CK-MB (CK-2) 1.08 Troponin I 0.034 NT-Pro-B Natriuret Pep [id number] H Impressions: Carotid Doppler Study 04/20/17 00:00 IMPRESSION: NO HEMODYNAMICALLY SIGNIFICANT STENOSIS. Head CT 04/20/17 00:34 IMPRESSION: No acute findings. Chronic 7 cm left posterior parieto-occipital arachnoid cyst pattern is stable. Chest X-Ray 04/20/17 06:00 IMPRESSION: 1. Resolution of previous noted abnormal density in the lungs. 2. Mild cardiomegaly and minimal vascular congestion. Assessment & Plan - Diagnosis (1) Systolic CHF Qualifiers: Congestive heart failure chronicity: chronic Qualified Code(s): I50.22 - Chronic systolic (congestive) heart failure Is this a current diagnosis for this admission?: YesPlan: Acutely decompensated. EF 20-25% with severe global hypokinesis on echocardiogram 12/30/2016. Continue Lasix 20 mg IV every 8 hours. Continue Toprol-XL 25 mg twice daily and Cozaar 25 mg every 12 hours as ordered by Dr. Alba of cardiology. Patient is normally followed by Dr. Wills of cardiology. Dr. Alba of cardiology following. He is going to arrange for patient to have AICD placement by Dr. Jose in [facility] after discharge. (2) Extrapyramidal disease and abnormal movement disorder Is this a current diagnosis for this admission?: YesPlan: Likely secondary to Phenergan. Phenergan discontinued and noted as adverse drug reaction. Patient will be given Benadryl 25 mg IV 1 dose. (3) Acute on chronic respiratory failure with hypoxemia Is this a current diagnosis for this admission?: YesPlan: Continue oxygen supplementation. Patient is on home oxygen at baseline. He is followed by Dr. Hastings of pulmonary medicine as an outpatient. He is also on nocturnal CPAP for obstructive sleep apnea. (4) Basal pneumonia of both lungs Is this a current diagnosis for this admission?: YesPlan: Likely bacterial. Continue oral doxycycline until 04/27/2017. Blood cultures no growth. (5) COPD exacerbation Is this a current diagnosis for this admission?: YesPlan: Continue duo nebs every 6 hours while awake. Albuterol nebulizer treatments as needed. (6) Elevated LFTs Is this a current diagnosis for this admission?: Yes (7) Acute renal failure superimposed on stage 3 chronic kidney disease Is this a current diagnosis for this admission?: YesPlan: Normally followed by Dr. Jackson of nephrology. Hold off on TWIN inhibitor for now. Monitor renal function closely with aggressive diuresis. (8) Anticoagulated Is this a current diagnosis for this admission?: YesPlan: Decreased Eliquis to 2.5 mg twice daily secondary to renal impairment. (9) Diabetes mellitus type 2 in nonobese Is this a current diagnosis for this admission?: YesPlan: Continue Amaryl. Sliding scale insulin coverage. (10) Obstructive sleep apnea Is this a current diagnosis for this admission?: YesPlan: On home CPAP. (11) Paroxysmal a-fib Is this a current diagnosis for this admission?: YesPlan: Currently in sinus rhythm. Decreased Eliquis to 2.5 mg twice daily secondary to renal impairment. Continue Toprol-XL 25 mg twice daily. - Time Time Spent with patient: 35 or more minutes
[2017-04-20] MEDS: CYANOCOBALAMIN (VITAMIN B-12) 1,000 MCG TABLET PO SCH (17:40)
--- NOTE | 2017-04-20 18:00 | XCELERA REPORT ---
[address] [address] Transthoracic Echocardiogram Report Name: BAM MORRISON Age: 66 yrs Gender: Male : 1950 Patient Status: Inpatient Patient Location: 4N\S\401\S\A Study Date: 04/20/2017 09:23 AM Height: 71 in Weight: 181 lb BSA: 2.0 m2 Procedure: A two-dimensional transthoracic echocardiogram with color flow and Doppler was performed. The study was technically limited with all images being suboptimal in quality. Reason For Study: CHF / CARDIOMYOPATHY History: CHF / CARDIOMYOPATHY. Ordering Physician: JT MALCOLM Performed By: Vivi Joshi Interpretation Summary The study was technically limited with all images being suboptimal in quality. The left ventricle is moderately dilated. There is normal left ventricular wall thickness. LV EF is less than 15% Left ventricular systolic function is severely reduced. LV diastolic function could not be adequately assessed. There is severe global hypokinesis of the left ventricle. There is no evidence of mitral valve prolapse. There is no mitral valve stenosis. There is a moderate amount of mitral regurgitation There is no aortic valve stenosis There is no LVOT obstruction. No aortic regurgitation is present. There is no tricuspid stenosis. There is a moderate amount of tricuspid regurgitation There is servere pulmonary hypertension by echo RVSP is 67 mm of Hg , with RA mean of 20. There is no pericardial effusion. MMode/2D Measurements \T\ Calculations RVDd: 3.3 cm LVIDd: 6.2 cm FS: 11.4 % Ao root diam: IVSd: 0.79 cm LVIDs: 5.5 cm EDV(Teich): 2.7 cm LVPWd: 0.81 cm 197.5 ml Ao root area: ESV(Teich): 149.8 ml 5.8 cm2 EF(Teich): 24.2 % LA dimension: 4.1 cm LVOT diam: LVLd ap4: 8.3 cm SV(MOD-sp4): 2.1 cm EDV(MOD-sp4): 23.0 ml LVOT area: 121.0 ml LVLs ap4: 8.4 cm 3.5 cm2 ESV(MOD-sp4): 98.0 ml EF(MOD-sp4): 19.0 % Doppler Measurements \T\ Calculations MV E max ellie: MV P1/2t max ellie: Ao V2 max: LV V1 max P.8 cm/sec 94.8 cm/sec 78.3 cm/sec 0.82 mmHg MV P1/2t: 39.0 msec Ao max PG: LV V1 max: MVA(P1/2t): 5.6 cm2 2.5 mmHg 45.4 cm/sec MV dec slope: VY(V,D): 2.0 cm2 712.3 cm/sec2 PA V2 max: PI end-d ellie: TR max ellie: 45.4 cm/sec 206.3 cm/sec 339.1 cm/sec PA max PG: TR max P.82 mmHg 46.0 mmHg Left Ventricle The left ventricle is moderately dilated. There is normal left ventricular wall thickness. LV EF is less than 15%. Left ventricular systolic function is severely reduced. LV diastolic function could not be adequately assessed. There is severe global hypokinesis of the left ventricle. There is no thrombus. Right Ventricle The right ventricle is moderately dilated. The right ventricle is not well visualized secondary to technical limitations. Atria The right atrium is mild to moderately dilated. The left atrium is moderately dilated. Mitral Valve There is no evidence of mitral valve prolapse. There is no vegetation seen on the mitral valve. There is no mitral valve stenosis. There is a moderate amount of mitral regurgitation. Aortic Valve There is no aortic valvular vegetation. There is no aortic valve stenosis. There is no LVOT obstruction. No aortic regurgitation is present. Tricuspid Valve There is no tricuspid stenosis. There is a moderate amount of tricuspid regurgitation. There is servere pulmonary hypertension by echo. RVSP is 67 mm of Hg , with RA mean of 20. Pulmonic Valve There is no pulmonic valvular stenosis. There is a mild amount of pulmonic regurgitation. Great Vessels The aortic root is normal size. Effusions There is no pericardial effusion. : JT MALCOLM > Tiffany Alba
--- NOTE | 2017-04-20 22:32 | PROGRESS NOTE E ---
Progress Note NAME: BAM MORRISON : 1950 AGE: 66Y DATE: 04/20/2017 ROOM: 401 SUBJECTIVE: The patient denies any shortness of breath. There is no PND, orthopnea. The patient does appear to be slightly anxious. There is no chest pain or discomfort. There is no leg edema. There is no arrhythmia seen. The patient denies any palpitations or syncope or near syncope or dizziness. Denies TIA or CVA symptoms. OBJECTIVE: GENERAL: On examination the patient is well-built and well-nourished, at present in no acute distress. VITAL SIGNS: He is afebrile with a temperature of 97 degrees Fahrenheit, pulse is 88 beats per minute, blood pressure 103/75, respirations 16 per minute, O2 saturations are 100% on 2 L nasal cannula. HEENT: Head is atraumatic, normocephalic. EYES: Pupils are equal, round, regular, reactive to light and accommodation. Extraocular movements are normal. There is no conjunctival pallor. There is no scleral icterus. Tympanic membranes are intact. External auditory canals are clear. There are no lesions in the pinnae. Note there is no deviated nasal septum. There is no inflammation of the nasal mucous membrane. Mouth: Mucous membranes of the mouth are moist, tongue is moist. There are no ulcers. There is no bleeding from the gums. Throat: There is no redness of the oropharynx, there are no exudates. NECK: Supple. There is no JVD. Carotids are equal. There is no bruit. There is no lymphadenopathy. There is no goiter. Trachea is central. LUNGS: Clear to auscultation and percussion. There is no chest wall tenderness. HEART: S1 and S2 is heard. There is no S3 gallop. There is no S4 gallop. There is a systolic murmur in the left sternal border and the apex. There is no rub. ABDOMEN: Soft, nontender. There is no hepatosplenomegaly. Bowel sounds are well heard. There are no tender areas or masses. There is no rebound, guarding, or rigidity. EXTREMITIES: Femorals are slightly diminished. There is no femoral bruit. Leg pulses are diminished. There is no pedal edema. There is no DVT or cellulitis. There is no cyanosis or clubbing. There is no calf tenderness. Capillary refill is normal. CENTRAL NERVOUS SYSTEM: The patient is conscious, awake, alert, oriented x3 with no focal deficits. PSYCHIATRIC: The patient's judgment and insight are intact. His affect is normal. INTAKE/OUTPUT: The patient's 24 hour intake is 550 mL, output is 600 mL. DIAGNOSTIC STUDIES: The patient's white count is 9500, hemoglobin is 10.8, hematocrit is 35.3, platelet count is 254,000. The patient's sodium is 142.5, potassium 4.1, chloride 105, CO2 is 25. The patient's BUN is 44, creatinine is 1.84, GFR is reduced at 44 which is chronic kidney disease stage 3. The patient's liver function test showed an AST of 97, ALT of 147, alk-phos of 230. The patient's NT-proBNP is 15,800. His triglycerides are 104. His total cholesterol is 106. His LDL cholesterol is good at 60. His HDL cholesterol is low at 29. The patient's troponin I is indeterminant at 0.034. The patient's chest x-ray shows resolution of previously noted abnormal density in the lung, mild *------* leak. There is minimal vascular congestion. The patient's echocardiogram shows the left ventricle is moderately dilated. There is normal left ventricular wall thickness. Left ventricular ejection fraction is less than 15%. Left ventricular systolic pressure is severely reduced. There is severe global hypokinesis of the left ventricle. There is no evidence of mitral valve prolapse. There is no mitral valve stenosis. There is moderate amount of mitral regurgitation. There is no aortic valve stenosis. There is no aortic regurgitation. There is no tricuspid stenosis. There is moderate amount of tricuspid regurgitation. There is severe pulmonary hypertension by echo. Right ventricular systolic pressure is 67 mmHg with an RA (right atrial) mean of 20. There is no pericardial effusion. IMPRESSION: 1. ACUTE SYSTOLIC HEART FAILURE, AT PRESENT SEEMS TO BE IMPROVED, BUT THE PATIENT CONTINUES TO BE IN HEART FAILURE WITH DILATED CARDIOMYOPATHY. CONTINUES TO BE IN HEART FAILURE BUT THIS IS IMPROVING. THE PATIENT HAS DILATED CARDIOMYOPATHY. The patient is on Toprol XL 25 mg p.o. q.12 hours and also the patient is on ARB. 2. DILATED CARDIOMYOPATHY WITH SEVERELY REDUCED LV EJECTION FRACTION. THE LV EJECTION FRACTION IS MUCH WORSE THAN WHAT IT WAS IN DECEMBER. The patient should referred after discharge to [facility] for AICD placement. 3. NO EVIDENCE OF CORONARY ARTERY DISEASE. THE PATIENT'S LEXISCAN CARDIOLITE STRESS TEST IN [place] WAS NEGATIVE FOR REVERSIBLE ISCHEMIA WITH AN LV EJECTION FRACTION OF 30%. NOTE THE LV EJECTION FRACTION HAS FURTHER DETERIORATED. 4. HISTORY OF HYPERTENSION, WHICH IS WELL-CONTROLLED. 5. OBSTRUCTIVE SLEEP APNEA ON CPAP. 6. HISTORY OF SVT WITH NO RECURRENCE, QUESTION ATRIAL FIBRILLATION PAROXYSMAL. The patient is on Eliquis. 7. HISTORY OF NONSUSTAINED VENTRICULAR TACHYCARDIA WITH NO RECURRENCE. 8. DIABETES MELLITUS TYPE 2, NONINSULIN DEPENDENT. 9. CHRONIC KIDNEY DISEASE STAGE 3. There is improvement in the GFR. 10. HISTORY OF MVP. NO MVP ON THIS RECENT ECHO. 11. HYPERLIPIDEMIA. 12. SEVERE PULMONARY HYPERTENSION. 13. HISTORY OF GOUT. 14. ANEMIA. 15. POSSIBLE BIBASILAR PNEUMONIA. THE INFILTRATES ARE IMPROVING. RECOMMENDATION: Continue the patient on Toprol XL 25 mg p.o. q.12 hours and continue Cozaar at 25 mg p.o. daily, continue the Lasix at 20 mg IV q.8 hours and subsequently we will switch the patient to p.o. Lasix. Continue his other medication. Continue antibiotics. Would change the patient's nebulizer treatment to Xopenex so that it has the least effect on the rhythm of the heart. Note echo was discussed with the patient and patient's . Also the referral for AICD has also been discussed with the patient. TIME SPENT: Note 30 minutes spent on this patient with more than 50% of the time spent on direct patient care. The patient's medications have been reviewed. Note continues to need highly complex medical decision making. We will follow with you. Dr. Mckeon will follow the patient in the morning. Thanking you. DICTATING PHYSICIAN: DPIAK BHAKTA M.D. [id number] PHY#: [id number] ID: [id number] JOB#: [id number] ACCT: [id number] cc: >
[2017-04-21] MEDS: FUROSEMIDE INJ/PF 20 MG/2 ML SDV IV SCH ×3 (05:47→21:27)
[2017-04-21 06:13] LABS: ABSOLUTE EOSINOPHILS # (AUTO) 0.2 10^3/uL (0.0-0.6); ABSOLUTE LYMPHOCYTES (AUTO) 1.3 10^3/uL (0.5-4.7); ABSOLUTE MONOCYTES (AUTO) 0.8 10^3/uL (0.1-1.4); ABSOLUTE NEUT (AUTO) 6.6 10^3/uL (1.7-8.2); BASOPHILS % (AUTO) 0.4 % (0-2); EOSINOPHILS % (AUTO) 1.9 % (0-6); HEMATOCRIT 36.1 % (37.9-51.0); HEMOGLOBIN 10.9 g/dL (13.5-17.0); HGB HCT DIFFERENCE -3.4; LYMPHOCYTES % (AUTO) 14.3 % (13-45); MEAN CORPUSCULAR HEMOGLOBIN 23.9 pg (27.0-33.4); MEAN CORPUSCULAR HGB CONC 30.3 g/dL (32.0-36.0); MEAN CORPUSCULAR VOLUME 79 fl (80-97); MONOCYTES % (AUTO) 8.8 % (3-13); RED BLOOD COUNT 4.56 10^6/uL (4.35-5.55); RED CELL DISTRIBUTION WIDTH 21.3 % (11.5-14.0); SEGMENTED NEUTROPHILS % (AUTO) 74.6 % (42-78); WHITE BLOOD COUNT 8.8 10^3/uL (4.0-10.5)
[2017-04-21 06:23] LABS: ANION GAP 11 (5-19); BLOOD UREA NITROGEN 49 mg/dL (7-20); CALCIUM 9.7 mg/dL (8.4-10.2); CARBON DIOXIDE 25 mmol/L (22-30); CHLORIDE 105 mmol/L (98-107); CREATININE RESULT 1.84 mg/dL (0.52-1.25); GLUCOSE 105 mg/dL (75-110); POTASSIUM 4.6 mmol/L (3.6-5.0); SODIUM 141.1 mmol/L (137-145)
[2017-04-21] MEDS: DOXYCYCLINE HYCLATE 100 MG TABLET PO SCH ×2 (09:44→21:27)
[2017-04-21] MEDS: APIXABAN 2.5 MG TABLET PO SCH ×2 (09:45→17:07)
[2017-04-21] MEDS: CHOLECALCIFEROL (D3) 1,000 UNIT TABLET PO SCH ×2 (09:45→21:27)
[2017-04-21] MEDS: METOPROLOL SUCCINATE 25 MG TAB.SR.24H PO SCH ×2 (09:55→21:29)
[2017-04-21] MEDS: ASPIRIN 81 MG TABLET, ENT COATED PO SCH (09:55)
[2017-04-21] MEDS: GLIMEPIRIDE 4 MG TABLET PO SCH (09:55)
[2017-04-21] MEDS: LOSARTAN POTASSIUM 25 MG TABLET PO SCH ×2 (09:55→21:29)
--- NOTE | 2017-04-21 11:36 | PDOC PROGRESS REPORT ---
Subjective Progress Note for:: 04/21/17 Subjective:: Patient seems to be doing better with gradual improvement. Pt is denying any chest arm or neck discomfort. Patient denying any PND, orthopnea. Patient denied any sustained palpitations, dizziness, syncope, near syncope. Patient denying any fever chills. Patient denying any other significant discomfort. Patient is maintaining sinus rhythm. Review of systems: Rest review of systems negative. Medications: Medications have been reviewed. Physical Exam Vital Signs: Temp Pulse Resp BP Pulse Ox 97.4 F 78 18 99/68 L 100 04/21/17 08:00 04/21/17 08:00 04/21/17 08:00 04/21/17 08:00 04/21/17 08:00 Intake & Output 04/20/17 04/21/17 04/22/17 06:59 06:59 06:59 Intake Total 550 1333 Output Total 600 1160 Balance -50 173 Weight 82.9 kg 83.2 kg Exam: GENERAL: well-nourished and in no acute distress. Alert and oriented x3 HEAD: Atraumatic, normocephalic. EYES: Pupils equal round and reactive to light, extraocular movements intact, sclera anicteric, conjunctiva are normal. ENT: TMs normal, nares patent, oropharynx clear without exudates. Moist mucous membranes. No oral ulcerations or bleeding gums noted NECK: supple without lymphadenopathy. Trachea is central. No cervical or axillary lymphadenopathy noted. Carotids are 2+, JVD WNL LUNGS: Respiration seems nonlabored, no significant accessory muscle action noted. Breath sounds clear to auscultation bilaterally and equal noted. No wheezes rales or rhonchi noted. No significant dullness noted on percussion. CHEST: Palpation of the chest wall shows no significant chest wall tenderness. No other significant abnormalities noted. HEART: [place] [employer], No PSH, 1/6 [place] aortic area, 1/6 gaines systolic murmur mitral area, no rubs, no gallops. ABDOMEN: Soft, no significant tenderness appreciated, normoactive bowel sounds. No guarding, no rebound. No rigidity noted . No masses appreciated. EXTREMITIES: Pedal pulses are 1-2+, no calf tenderness noted. No clubbing or cyanosis.trace to 1+ pedal edema noted NEUROLOGICAL: Focused neurological exam showed no significant neurologic deficit. Normal speech, no focal weakness appreciated. PSYCH: Normal mood, normal affect. Judgment and insight within normal limits. SKIN: No significant ecchymosis, rash, ulcerations or signs of pruritus noted. MUSCULOSKELETAL EXAM: No significant joint swelling noted. Results Laboratory Results: 04/21/17 06:01 04/21/17 06:01 04/21/17 04/21/17 06:01 06:01 WBC 8.8 RBC 4.56 Hgb 10.9 L Hct 36.1 L MCV 79 L MCH 23.9 L MCHC 30.3 L RDW 21.3 H Plt Count 238 Seg Neutrophils % 74.6 Lymphocytes % 14.3 Monocytes % 8.8 Eosinophils % 1.9 Basophils % 0.4 Absolute Neutrophils 6.6 Absolute Lymphocytes 1.3 Absolute Monocytes 0.8 Absolute Eosinophils 0.2 Absolute Basophils 0.0 Sodium 141.1 Potassium 4.6 Chloride 105 Carbon Dioxide 25 Anion Gap 11 BUN 49 H Creatinine 1.84 H Est GFR ( Amer) 44 L Est GFR (Non-Af Amer) 37 L Glucose 105 Calcium 9.7 04/18/17 04/18/17 04/20/17 02:39 08:44 01:52 Creatine Kinase 76 CK-MB (CK-2) Troponin I 0.034 0.028 NT-Pro-B Natriuret Pep 04/20/17 01:52 Creatine Kinase CK-MB (CK-2) 1.08 Troponin I 0.034 NT-Pro-B Natriuret Pep 91205 H EKG Comments: Sinus rhythm, low voltage QRS complex, nonprogression of R-wave anterior precordial leads. Impressions: Carotid Doppler Study 04/20/17 00:00 IMPRESSION: NO HEMODYNAMICALLY SIGNIFICANT STENOSIS. Head CT 04/20/17 00:34 IMPRESSION: No acute findings. Chronic 7 cm left posterior parieto-occipital arachnoid cyst pattern is stable. Chest X-Ray 04/20/17 06:00 IMPRESSION: 1. Resolution of previous noted abnormal density in the lungs. 2. Mild cardiomegaly and minimal vascular congestion. Assessment & Plan - Diagnosis (1) Cardiomyopathy Qualifiers: Cardiomyopathy type: unspecified Qualified Code(s): I42.9 - Cardiomyopathy, unspecified Is this a current diagnosis for this admission?: Yes (2) Hypertension Qualifiers: Hypertension type: essential hypertension Qualified Code(s): I10 - Essential (primary) hypertension Is this a current diagnosis for this admission?: Yes (3) Sleep apnea syndrome Qualifiers: Sleep apnea type: unspecified type Qualified Code(s): G47.30 - Sleep apnea, unspecified Is this a current diagnosis for this admission?: Yes (4) Dyslipidemia Is this a current diagnosis for this admission?: Yes (5) Chronic kidney disease (CKD) Qualifiers: Chronic kidney disease stage: stage 3 (moderate) Qualified Code(s): N18.3 - Chronic kidney disease, stage 3 (moderate) Is this a current diagnosis for this admission?: Yes (6) Diabetes type 2, controlled Qualifiers: Diabetes mellitus complication status: with unspecified complications Diabetes mellitus shelter insulin use: unspecified shelter insulin use status Qualified Code(s): E11.8 - Type 2 diabetes mellitus with unspecified complications; Z79.4 - exterminator termite (current) use of insulin Is this a current diagnosis for this admission?: Yes (7) Paroxysmal atrial fibrillation Is this a current diagnosis for this admission?: Yes (8) CHF (congestive heart failure) Qualifiers: Congestive heart failure type: systolic Congestive heart failure chronicity: acute on chronic Qualified Code(s): I50.23 - Acute on chronic systolic (congestive) heart failure Is this a current diagnosis for this admission?: Yes - Notes Notes: Cardiomyopathy: Recommend optimizing medical therapy gradually. Hypertension: Reasonably well controlled. Blood pressure goal in this patient is 135/85 or less. This was discussed with the patient. Currently blood pressure under reasonable control. Better medication for this patient are TWIN inhibitor/ARB/beta selena etc. discussed side effects of uncontrolled hypertension and also severe hypotension. Sleep apnea syndrome: Patient would benefit from nightly CPAP use. Dyslipidemia: LDL goal is less than 70 in this gentleman. Continue statin therapy. Chronic kidney disease: Currently stable. Paroxysmal atrial fibrillation: Continue Eliquis therapy and rate control with beta-selena [place]. CHF: Currently seems compensated by clinical exam. Patient will benefit from defibrillator placement and peripheral be should be discharged on LifeVest. Addendum: Discussed ICD placement and LifeVest in the interim with the patient. Patient tells me that Dr. Alba he is going to make arrangement by himself and did not want me to make this arrangement. - Time Time with patient: Greater than 35 minutes - CODE STATUS was discussed, patient remains full code. Surrogate decision-maker unchanged. Multiple medical problems were addressed. More than 50% of the time spent coordinating care, discussing management plans with involved caregivers. Management plans discussed with involved personnels. Medical decision making was of moderate to high complexity, patient's has multiple comorbidities. Medications reviewed and adjusted accordingly: Yes
[2017-04-21] MEDS: CYANOCOBALAMIN (VITAMIN B-12) 1,000 MCG TABLET PO SCH (17:07)
[2017-04-21] MEDS: INSULIN LISPRO 100 UNIT/ML 3 ML VIAL SUBCUT PRN (17:12)
--- NOTE | 2017-04-21 17:30 | PDOC PROGRESS REPORT ---
Subjective Progress Note for:: 04/21/17 Subjective:: The patient has multiple concerns about his blood pressure medications. He states that he has had trouble with his blood pressure dropping too low as an outpatient. He is concerned about the medications that are currently been recommended and whether or not able to affect his blood pressure the same way. I have encouraged him to pay attention to his symptoms while on the medications. We have also discussed whether or not he will need any sort of intervention such as a LifeVest before discharge. Plan at this point will be for him to have an AICD placed in [place] after discharge. He denies any chest pain or shortness of breath. Physical Exam Vital Signs: Temp Pulse Resp BP Pulse Ox 98.1 F 98 20 103/76 100 04/21/17 16:00 04/21/17 16:00 04/21/17 16:00 04/21/17 16:00 04/21/17 16:00 Intake & Output 04/20/17 04/21/17 04/22/17 06:59 06:59 06:59 Intake Total 550 1333 3 Output Total 600 1160 Balance -50 173 3 Weight 82.9 kg 83.2 kg GENERAL: This is a well-developed well-nourished appearing -[place] male resting on the side of his bed currently in no acute distress. HEART: Regular rate and rhythm. No murmurs, rubs or gallops. LUNGS: Clear to auscultation bilaterally with equal rise and fall of the chest. ABDOMEN: Soft, nontender, nondistended with normoactive bowel sounds EXTREMETIES: No clubbing, cyanosis or edema. 2+ peripheral pulses bilaterally. NEURO: Awake, alert and oriented 3. Cranial nerves II through XII are grossly intact. Results Laboratory Results: 04/21/17 06:01 04/21/17 06:01 04/21/17 04/21/17 06:01 06:01 WBC 8.8 RBC 4.56 Hgb 10.9 L Hct 36.1 L MCV 79 L MCH 23.9 L MCHC 30.3 L RDW 21.3 H Plt Count 238 Seg Neutrophils % 74.6 Lymphocytes % 14.3 Monocytes % 8.8 Eosinophils % 1.9 Basophils % 0.4 Absolute Neutrophils 6.6 Absolute Lymphocytes 1.3 Absolute Monocytes 0.8 Absolute Eosinophils 0.2 Absolute Basophils 0.0 Sodium 141.1 Potassium 4.6 Chloride 105 Carbon Dioxide 25 Anion Gap 11 BUN 49 H Creatinine 1.84 H Est GFR ( Amer) 44 L Est GFR (Non-Af Amer) 37 L Glucose 105 Calcium 9.7 04/18/17 04/18/17 04/20/17 02:39 08:44 01:52 Creatine Kinase 76 CK-MB (CK-2) Troponin I 0.034 0.028 NT-Pro-B Natriuret Pep 04/20/17 01:52 Creatine Kinase CK-MB (CK-2) 1.08 Troponin I 0.034 NT-Pro-B Natriuret Pep [id number] H Impressions: Carotid Doppler Study 04/20/17 00:00 IMPRESSION: NO HEMODYNAMICALLY SIGNIFICANT STENOSIS. Head CT 04/20/17 00:34 IMPRESSION: No acute findings. Chronic 7 cm left posterior parieto-occipital arachnoid cyst pattern is stable. Chest X-Ray 04/20/17 06:00 IMPRESSION: 1. Resolution of previous noted abnormal density in the lungs. 2. Mild cardiomegaly and minimal vascular congestion. Assessment & Plan - Diagnosis (1) Acute on chronic respiratory failure with hypoxemia Is this a current diagnosis for this admission?: Yes Plan: The patient's breathing is greatly improved with diuresis. He is beginning to feel back to baseline in this area. (2) Basal pneumonia of both lungs Is this a current diagnosis for this admission?: Yes Plan: Continue current antibiotics for now. Doxycycline (3) Extrapyramidal disease and abnormal movement disorder Is this a current diagnosis for this admission?: Yes Plan: Continue as needed Benadryl. Symptoms seem to have abated as I have not detected any movement issues during my exam. (4) Paroxysmal atrial fibrillation Is this a current diagnosis for this admission?: Yes (5) Systolic CHF Qualifiers: Congestive heart failure chronicity: chronic Qualified Code(s): I50.22 - Chronic systolic (congestive) heart failure Is this a current diagnosis for this admission?: Yes Plan: Patient is EF of less than 15%. He will follow-up in [place] for placement of AICD. Continue losartan and metoprolol at current doses for now. The patient will pay special attention to his symptoms. If we have any difficulties with maintaining good blood pressure or if he has signs and symptoms consistent with dizziness then we can consider decreasing the doses further at that time. Continue diuresis. Will need to discuss if LifeVest is going to be offered to patient prior to discharge. (6) Anticoagulated Is this a current diagnosis for this admission?: Yes Plan: Continue Xarelto for paroxysmal atrial fibrillation. (7) COPD exacerbation Is this a current diagnosis for this admission?: Yes Plan: Continue steroids. Patient seems improved. (8) Diabetes type 2, controlled Qualifiers: Diabetes mellitus complication status: with unspecified complications Diabetes mellitus shelter insulin use: unspecified shelter insulin use status Qualified Code(s): E11.8 - Type 2 diabetes mellitus with unspecified complications Is this a current diagnosis for this admission?: Yes - Time Time Spent with patient: 25-34 minutes - Inpatient Certification Based on my medical assessment, after consideration of the patient's comorbidities, presenting symptoms, or acuity I expect that the services needed warrant INPATIENT care.: Yes Medical Necessity: Other - IV diuresis.
[2017-04-21] MEDS: ATORVASTATIN CALCIUM 40 MG TABLET PO SCH (21:27)
[2017-04-21] MEDS: IRON POLYSACCHARIDES COMPLEX 150 MG CAPSULE PO SCH (21:27)
[2017-04-22] MEDS: FUROSEMIDE INJ/PF 20 MG/2 ML SDV IV SCH ×2 (06:15→13:39)
[2017-04-22 07:48] LABS: ABSOLUTE BASOPHILS # (AUTO) 0.1 10^3/uL (0.0-0.2); ABSOLUTE EOSINOPHILS # (AUTO) 0.2 10^3/uL (0.0-0.6); ABSOLUTE LYMPHOCYTES (AUTO) 1.5 10^3/uL (0.5-4.7); ABSOLUTE MONOCYTES (AUTO) 0.9 10^3/uL (0.1-1.4); BASOPHILS % (AUTO) 1.4 % (0-2); EOSINOPHILS % (AUTO) 2.5 % (0-6); HEMATOCRIT 36.1 % (37.9-51.0); HEMOGLOBIN 11.2 g/dL (13.5-17.0); HGB HCT DIFFERENCE -2.5; LYMPHOCYTES % (AUTO) 17.1 % (13-45); MEAN CORPUSCULAR HEMOGLOBIN 24.4 pg (27.0-33.4); MEAN CORPUSCULAR VOLUME 79 fl (80-97); MONOCYTES % (AUTO) 10.1 % (3-13); RED BLOOD COUNT 4.59 10^6/uL (4.35-5.55); SEGMENTED NEUTROPHILS % (AUTO) 68.9 % (42-78); WHITE BLOOD COUNT 8.7 10^3/uL (4.0-10.5)
[2017-04-22 07:55] LABS: ANION GAP 12 (5-19); BLOOD UREA NITROGEN 54 mg/dL (7-20); CALCIUM 9.9 mg/dL (8.4-10.2); CARBON DIOXIDE 25 mmol/L (22-30); CHLORIDE 106 mmol/L (98-107); CREATININE RESULT 2.09 mg/dL (0.52-1.25); GLUCOSE 67 mg/dL (75-110); MAGNESIUM 1.9 mg/dL (1.6-2.3); POTASSIUM 4.3 mmol/L (3.6-5.0); SODIUM 142.6 mmol/L (137-145)
[2017-04-22] MEDS: GLIMEPIRIDE 4 MG TABLET PO SCH (08:23)
[2017-04-22] MEDS: DOXYCYCLINE HYCLATE 100 MG TABLET PO SCH ×2 (10:30→21:28)
[2017-04-22] MEDS: ASPIRIN 81 MG TABLET, ENT COATED PO SCH (10:31)
[2017-04-22] MEDS: LOSARTAN POTASSIUM 25 MG TABLET PO SCH (10:31)
[2017-04-22] MEDS: METOPROLOL SUCCINATE 25 MG TAB.SR.24H PO SCH (10:31)
[2017-04-22] MEDS: CHOLECALCIFEROL (D3) 1,000 UNIT TABLET PO SCH ×2 (10:31→21:28)
[2017-04-22] MEDS: APIXABAN 2.5 MG TABLET PO SCH ×2 (10:32→17:35)
--- NOTE | 2017-04-22 16:30 | PDOC PROGRESS REPORT ---
Subjective Progress Note for:: 04/22/17 Subjective:: The patient and I had a long discussion again today about his antihypertensive. His blood pressure dropped down to 92 and 94 overnight. The patient states that he experienced some slight dizziness and a general feeling of weakness. His blood pressure today is 114 at the bedside and after receiving his antihypertensives he went down as low as 104. We discussed at length the various options to decrease his blood pressure medicines and still have optimal treatment for his heart failure. He met with the [employer] entry level marketing representative today as well. Physical Exam Vital Signs: Temp Pulse Resp BP Pulse Ox 97.6 F 77 18 104/81 98 04/22/17 11:21 04/22/17 15:55 04/22/17 15:55 04/22/17 11:21 04/22/17 15:55 Intake & Output 04/21/17 04/22/17 04/23/17 06:59 06:59 06:59 Intake Total 1333 1153 Output Total 1160 890 Balance 173 263 Weight 83.2 kg 80.9 kg GENERAL: This is a well-developed well-nourished appearing -[place] male resting on the side of his bed currently in no acute distress. HEART: Regular rate and rhythm. No murmurs, rubs or gallops. LUNGS: Clear to auscultation bilaterally with equal rise and fall of the chest. ABDOMEN: Soft, nontender, nondistended with normoactive bowel sounds EXTREMETIES: No clubbing, cyanosis or edema. 2+ peripheral pulses bilaterally. NEURO: Awake, alert and oriented 3. Cranial nerves II through XII are grossly intact. Results Laboratory Results: 04/22/17 04:08 04/22/17 04:08 04/22/17 04/22/17 04:08 04:08 WBC 8.7 RBC 4.59 Hgb 11.2 L Hct 36.1 L MCV 79 L MCH 24.4 L MCHC 31.0 L RDW 21.0 H Plt Count 236 Seg Neutrophils % 68.9 Lymphocytes % 17.1 Monocytes % 10.1 Eosinophils % 2.5 Basophils % 1.4 Absolute Neutrophils 6.0 Absolute Lymphocytes 1.5 Absolute Monocytes 0.9 Absolute Eosinophils 0.2 Absolute Basophils 0.1 Sodium 142.6 Potassium 4.3 Chloride 106 Carbon Dioxide 25 Anion Gap 12 BUN 54 H Creatinine 2.09 H Est GFR ( Amer) 38 L Est GFR (Non-Af Amer) 32 L Glucose 67 L Calcium 9.9 Magnesium 1.9 04/18/17 04/18/17 04/20/17 02:39 08:44 01:52 Creatine Kinase 76 CK-MB (CK-2) Troponin I 0.034 0.028 NT-Pro-B Natriuret Pep 04/20/17 01:52 Creatine Kinase CK-MB (CK-2) 1.08 Troponin I 0.034 NT-Pro-B Natriuret Pep 72677 H Impressions: Carotid Doppler Study 04/20/17 00:00 IMPRESSION: NO HEMODYNAMICALLY SIGNIFICANT STENOSIS. Head CT 04/20/17 00:34 IMPRESSION: No acute findings. Chronic 7 cm left posterior parieto-occipital arachnoid cyst pattern is stable. Chest X-Ray 04/20/17 06:00 IMPRESSION: 1. Resolution of previous noted abnormal density in the lungs. 2. Mild cardiomegaly and minimal vascular congestion. Assessment & Plan - Diagnosis (1) Acute on chronic respiratory failure with hypoxemia Is this a current diagnosis for this admission?: Yes Plan: The patient's breathing is greatly improved with diuresis. He is beginning to feel back to baseline in this area. (2) Basal pneumonia of both lungs Is this a current diagnosis for this admission?: Yes Plan: Continue current antibiotics for now. Doxycycline patient is doing well from this perspective. (3) Extrapyramidal disease and abnormal movement disorder Is this a current diagnosis for this admission?: Yes Plan: Continue as needed Benadryl. Resolved. (4) Paroxysmal atrial fibrillation Is this a current diagnosis for this admission?: Yes Plan: Continue rate control. (5) Systolic CHF Qualifiers: Congestive heart failure chronicity: chronic Qualified Code(s): I50.22 - Chronic systolic (congestive) heart failure Is this a current diagnosis for this admission?: Yes Plan: Patient is EF of less than 15%. He will follow-up in [facility] for placement of AICD. Continue losartan and metoprolol at reduced doses. We will see if the patient can handle this. We will continue the Cozaar and losartan daily doses instead of twice daily doses. Hopefully this will offer him some relief from his generalized feelings of weakness associated with the medication and occasional dizziness. In doing so, hopefully we will ensure compliance. Continue diuresis. LifeVest to be given on discharge. The patient intends to follow-up with Dr. Alba as his primary band nailer on the outpatient basis. (6) Anticoagulated Is this a current diagnosis for this admission?: Yes Plan: Continue Eliquis for paroxysmal atrial fibrillation. (7) COPD exacerbation Is this a current diagnosis for this admission?: Yes Plan: Continue steroids. Patient seems improved. (8) Diabetes type 2, controlled Qualifiers: Diabetes mellitus complication status: with unspecified complications Diabetes mellitus residential insulin use: unspecified residential insulin use status Qualified Code(s): E11.8 - Type 2 diabetes mellitus with unspecified complications Is this a current diagnosis for this admission?: Yes Plan: Continue current therapy. - Time Time Spent with patient: 25-34 minutes - Inpatient Certification Medical Necessity: Need Close Monitoring Due to Risk of Patient Decompensation
[2017-04-22] MEDS: CYANOCOBALAMIN (VITAMIN B-12) 1,000 MCG TABLET PO SCH (17:34)
[2017-04-22] MEDS: FUROSEMIDE 20 MG TABLET PO SCH (17:34)
[2017-04-22] MEDS: INSULIN LISPRO 100 UNIT/ML 3 ML VIAL SUBCUT PRN ×2 (17:34→21:26)
[2017-04-22] MEDS: ATORVASTATIN CALCIUM 40 MG TABLET PO SCH (21:27)
[2017-04-22] MEDS: IRON POLYSACCHARIDES COMPLEX 150 MG CAPSULE PO SCH (21:27)
[2017-04-23] MEDS: TRAMADOL HCL 50 MG TABLET PO PRN (03:45)
[2017-04-23] MEDS: GLIMEPIRIDE 4 MG TABLET PO SCH (07:32)
[2017-04-23] MEDS: FUROSEMIDE 20 MG TABLET PO SCH ×2 (09:22→13:14)
[2017-04-23] MEDS: DOXYCYCLINE HYCLATE 100 MG TABLET PO SCH (09:23)
[2017-04-23] MEDS: CHOLECALCIFEROL (D3) 1,000 UNIT TABLET PO SCH (09:23)
[2017-04-23] MEDS: APIXABAN 2.5 MG TABLET PO SCH (09:23)
[2017-04-23] MEDS: ASPIRIN 81 MG TABLET, ENT COATED PO SCH (09:23)
[2017-04-23] MEDS ORDERED: METOPROLOL SUCCINATE 25 MG TAB.SR.24H PO SCH (10:00)
[2017-04-23] MEDS ORDERED: LOSARTAN POTASSIUM 25 MG TABLET PO SCH (10:00)
[2017-04-23] MEDS ORDERED: GUAIFENESIN SYRP 200 MG/10 ML UDC PO PRN (11:00)
[2017-04-23] MEDS ORDERED: COLCHICINE 0.6 MG TABLET PO ONE (11:30)
[2017-04-23] MEDS: INSULIN LISPRO 100 UNIT/ML 3 ML VIAL SUBCUT PRN (11:54)
--- NOTE | 2017-04-23 12:21 | PDOC DISCHARGE SUMMARY ---
General - Admit/Disc Date/PCP Admission Date/Primary Care Provider: 04/17/17 23:21 RUFINA LOWRY MD Discharge Date: 04/23/17 - Discharge Diagnosis (1) Acute on chronic respiratory failure with hypoxemia Is this a current diagnosis for this admission?: Yes Summary: Resolved. The patient is back to baseline. In fact, at rest he does not even need oxygen. It is advised he continue at 2 L/min during exertion. He is due to follow with his primary care physician on Thursday and can discuss at that time whether or not he needs to continue it at all. (2) Basal pneumonia of both lungs Is this a current diagnosis for this admission?: Yes Summary: Continue doxycycline as an outpatient. (3) Extrapyramidal disease and abnormal movement disorder Is this a current diagnosis for this admission?: Yes Summary: Secondary to Phenergan. This is resolved. (4) Paroxysmal atrial fibrillation Is this a current diagnosis for this admission?: Yes Summary: Continue Eliquis. (5) Systolic CHF Is this a current diagnosis for this admission?: Yes Summary: Follow with Dr. Alba tomorrow as scheduled. Continue losartan 25 mg daily and Toprol 25 mg daily. Continue Lasix at 20 mg p.o. 3 times daily. (6) Anticoagulated Is this a current diagnosis for this admission?: Yes Summary: Continue Eliquis. (7) COPD exacerbation Is this a current diagnosis for this admission?: Yes Summary: Resolved. Continue at home inhalers. (8) Diabetes type 2, controlled Is this a current diagnosis for this admission?: Yes Summary: Continue home regimen. - Additional Information Resuscitation Status: Full Code Discharge Diet: Cardiac, Diabetic Discharge Activity: Activity As Tolerated, Balance Activity w/Rest, Weigh Daily Home Medications: Apixaban [Eliquis 5 mg Tablet] 5 mg PO Q12 04/08/17 Dextrose [Glucose] 4 mg PO PRN PRN 04/08/17 Glimepiride [Amaryl 4 mg Tablet] 2 mg PO DAILY 04/08/17 Hum Insulin NPH/Reg Insulin Hm [Novolin 70-30 100 Unit/ml Vial] 20 units SQ MEALS PRN 04/08/17 Iron Aspgly&Ps/C/B12/FA/Ca/Suc [Ferrex 150 Forte Plus Capsule] 1 cap PO QHS 10/24 Linagliptin [Tradjenta] 5 mg PO DAILY 04/08/17 Nitroglycerin [Nitrostat 0.4 mg (1/150 Gr) Tabs 25/Bottle] 1 tab SL Q5MP PRN 10/24 Pantoprazole Sodium [Protonix] 40 mg PO DAILYP PRN 04/08/17 Tramadol HCl [Ultram 50 mg Tablet] 50 mg PO Q8HP PRN 04/08/17 Atorvastatin Calcium [Lipitor 40 mg Tablet] 40 mg PO QHS tablet 04/10/17 Cholecalciferol (Vitamin D3) [Vitamin D3 1000 Unit Tablet] 1,000 unit PO BID tablet 04/10/17 Cyanocobalamin (Vitamin B-12) [Vitamin B-12 1000 mcg Tablet] 1,000 mcg PO QPM tablet 04/10/17 Colchicine 0.6 mg PO Q12 04/17/17 Aspirin [Ecotrin 81 mg EC Tablet] 81 mg PO DAILY tabec 04/23/17 Aspirin [Ecotrin 81 mg EC Tablet] 81 mg PO DAILY tabec 04/23/17 Doxycycline Hyclate [Vibramycin 100 mg Tablet] 100 mg PO Q12 #10 tablet Furosemide [Lasix 20 mg Tablet] 20 mg PO TID #90 tablet 04/23/17 Metoprolol Succinate [Toprol Xl 25 mg Tab.sr] 25 mg PO DAILY #30 tab.sr.24h History of Present Illness History of Present Illness: HPI as per admitting physician: History of Present Illness Admission Date/PCP: 04/17/17 22:28 RUFINA LOWRY MD Cardiology Dr. Wills Nephrology Dr. Jackson Pulmonology Dr. James Endocrinology Dr. Hoang Patient complains of: Difficulty breathing History of Present Illness: BAM MORRISON is a 66 year old -[place]izen [place] male, with underlying type 2 diabetes mellitus, gout, paroxysmal atrial fibrillation, on Eliquis for same, hyperlipidemia, chronic systolic congestive heart failure, with echocardiogram earlier this year revealing an ejection fraction of 20%, myocardial infarction in December of this year, transferred to [facility] for same, obstructive sleep apnea, on nasal CPAP, setting of 10, and nightly and as needed 2 L per nasal cannula home O2 dependent COPD who presents to the emergency room for evaluation of approximately 24 hour history of slowly progressive difficulty breathing. Patient has been discussed with emergency room physician who evaluated the patient. Describes a dry cough. Nausea but no vomiting. No fever or chills. No diarrhea or dysuria, chest or abdominal pain. States this episode feels different than his usual episode of congestive heart failure exacerbation. He has been performing daily weight checks, with no change in his weight. Has noted some slight increase in his chronic left ankle swelling, felt by his narcotics investigator to be due to gout exacerbation, for which he was started on colchicine on Thursday. No change in the right ankle swelling. No sick contacts. Hospitalized on our service the second through the fourth of this month, discharge diagnoses including acute on chronic systolic congestive heart failure. Discharge summary reviewed. Admitted to our service March 06 of this year for difficulty breathing. History and physical exam has been reviewed. Currently resting quietly, stating he is breathing more comfortably. Hospital Course Hospital Course: The patient was admitted to the hospital and started on diuresis with IV Lasix. Cardiology was consulted and the patient was seen by Dr. Alba. He was started on Cozaar 25 mg twice daily and metoprolol XL 25 mg twice daily. the patient was also maintained on oxygen therapy for his shortness of breath. Overall he diuresed very well and was able to be weaned from his oxygen at rest. Unfortunately, the patient had difficulty handling the blood pressure medicine. His blood pressures were dropped to the 90s. After much discussion and informing him that 90s would be acceptable in his case the patient disclosed that he simply just did not feel well at these pressures. He reported weakness and slight dizziness. Therefore the medications were reduced to daily doses. Blood pressures range from 100-117. He did much better with this regimen and had far with her issues fewer issues with weakness and dizziness. Therefore he was left on this regimen. He has an appointment to follow with Dr. Alba tomorrow and his primary care physician on Thursday. Just prior to discharge he began to complain of gouty type symptoms in both of his great toes. At home he is usually on colchicine. He was given 1 dose of colchicine and advised to continue his regimen at home and follow-up with his PCP on Thursday. The patient's was also set up with a LifeVest prior to discharge. This is secondary to EF of less than 15%. Plans are for him to have an AICD placed down in [place]. Dr. Alba has agreed to make arrangements for this is an outpatient. At this time the patient is stable and ready for discharge. Physical Exam Vital Signs: Temp Pulse Resp BP Pulse Ox 98.2 F 81 16 113/69 98 04/23/17 07:41 04/23/17 10:11 04/23/17 10:11 04/23/17 07:41 04/23/17 07:41 Intake & Output 04/22/17 04/23/17 04/24/17 06:59 06:59 06:59 Intake Total 1153 1495 Output Total 890 1900 Balance 263 -405 Weight 80.9 kg 80.9 kg GENERAL: This is a well-developed well-nourished appearing -[place]izen [place] male resting on the side of his bed currently in no acute distress. HEART: Regular rate and rhythm. No murmurs, rubs or gallops. LUNGS: Clear to auscultation bilaterally with equal rise and fall of the chest. ABDOMEN: Soft, nontender, nondistended with normoactive bowel sounds EXTREMETIES: No clubbing, cyanosis or edema. 2+ peripheral pulses bilaterally. Tenderness of the great toes. NEURO: Awake, alert and oriented 3. Cranial nerves II through XII are grossly intact. Results Laboratory Results: 04/22/17 04:08 04/22/17 04:08 04/17/17 23:56 Blood Blood Culture - Final NO GROWTH IN 5 DAYS 04/18/17 04/18/17 04/20/17 02:39 08:44 01:52 Creatine Kinase 76 CK-MB (CK-2) Troponin I 0.034 0.028 NT-Pro-B Natriuret Pep 04/20/17 01:52 Creatine Kinase CK-MB (CK-2) 1.08 Troponin I 0.034 NT-Pro-B Natriuret Pep 64200 H Impressions: Carotid Doppler Study 04/20/17 00:00 IMPRESSION: NO HEMODYNAMICALLY SIGNIFICANT STENOSIS. Head CT 04/20/17 00:34 IMPRESSION: No acute findings. Chronic 7 cm left posterior parieto-occipital arachnoid cyst pattern is stable. Chest X-Ray 04/20/17 06:00 IMPRESSION: 1. Resolution of previous noted abnormal density in the lungs. 2. Mild cardiomegaly and minimal vascular congestion. Qualifiers PATEINT BEING DISCHARGED WITH ANY OF THE FOLLOWING DIAGNOSIS?: No HF Pt being discharged on ARBS for LVEF less than 40%?: Yes HF Pt discharged on evidence-based Beta Honorio:: Yes
[2017-04-23 13:47] VITALS: BP 114/70
--- NOTE | 2017-04-23 19:58 | PDOC PROGRESS REPORT ---
Subjective Progress Note for:: 04/22/17 Subjective:: Patient seems to be doing better with gradual improvement. Pt is denying any chest arm or neck discomfort. Patient denying any PND, orthopnea. Patient denied any sustained palpitations, dizziness, syncope, near syncope. Patient denying any fever chills. Patient denying any other significant discomfort. Patient is maintaining sinus rhythm. Review of systems: Rest review of systems negative. Medications: Medications have been reviewed. Physical Exam Vital Signs: Temp Pulse Resp BP Pulse Ox 97.6 F 88 16 104/81 100 04/22/17 11:21 04/22/17 14:00 04/22/17 11:21 04/22/17 11:21 04/22/17 11:21 Intake & Output 04/21/17 04/22/17 04/23/17 06:59 06:59 06:59 Intake Total 1333 1153 Output Total 1160 890 Balance 173 263 Weight 83.2 kg 80.9 kg Exam: GENERAL: well-nourished and in no acute distress. Alert and oriented x3 HEAD: Atraumatic, normocephalic. EYES: Pupils equal round and reactive to light, extraocular movements intact, sclera anicteric, conjunctiva are normal. ENT: TMs normal, nares patent, oropharynx clear without exudates. Moist mucous membranes. No oral ulcerations or bleeding gums noted NECK: supple without lymphadenopathy. Trachea is central. No cervical or axillary lymphadenopathy noted. Carotids are 2+, JVD WNL LUNGS: Respiration seems nonlabored, no significant accessory muscle action noted. Breath sounds clear to auscultation bilaterally and equal noted. No wheezes rales or rhonchi noted. No significant dullness noted on percussion. CHEST: Palpation of the chest wall shows no significant chest wall tenderness. No other significant abnormalities noted. HEART: [place] PIE CUTTER, No PSH, 1/6 [place] aortic area, 1/6 gaines systolic murmur mitral area, no rubs, no gallops. ABDOMEN: Soft, no significant tenderness appreciated, normoactive bowel sounds. No guarding, no rebound. No rigidity noted . No masses appreciated. EXTREMITIES: Pedal pulses are 1-2+, no calf tenderness noted. No clubbing or cyanosis.trace to 1+ pedal edema noted NEUROLOGICAL: Focused neurological exam showed no significant neurologic deficit. Normal speech, no focal weakness appreciated. PSYCH: Normal mood, normal affect. Judgment and insight within normal limits. SKIN: No significant ecchymosis, rash, ulcerations or signs of pruritus noted. MUSCULOSKELETAL EXAM: No significant joint swelling noted. Results Laboratory Results: 04/22/17 04:08 04/22/17 04:08 04/22/17 04/22/17 04:08 04:08 WBC 8.7 RBC 4.59 Hgb 11.2 L Hct 36.1 L MCV 79 L MCH 24.4 L MCHC 31.0 L RDW 21.0 H Plt Count 236 Seg Neutrophils % 68.9 Lymphocytes % 17.1 Monocytes % 10.1 Eosinophils % 2.5 Basophils % 1.4 Absolute Neutrophils 6.0 Absolute Lymphocytes 1.5 Absolute Monocytes 0.9 Absolute Eosinophils 0.2 Absolute Basophils 0.1 Sodium 142.6 Potassium 4.3 Chloride 106 Carbon Dioxide 25 Anion Gap 12 BUN 54 H Creatinine 2.09 H Est GFR ( Amer) 38 L Est GFR (Non-Af Amer) 32 L Glucose 67 L Calcium 9.9 Magnesium 1.9 04/18/17 04/18/17 04/20/17 02:39 08:44 01:52 Creatine Kinase 76 CK-MB (CK-2) Troponin I 0.034 0.028 NT-Pro-B Natriuret Pep 04/20/17 01:52 Creatine Kinase CK-MB (CK-2) 1.08 Troponin I 0.034 NT-Pro-B Natriuret Pep 71547 H Impressions: Carotid Doppler Study 04/20/17 00:00 IMPRESSION: NO HEMODYNAMICALLY SIGNIFICANT STENOSIS. Head CT 04/20/17 00:34 IMPRESSION: No acute findings. Chronic 7 cm left posterior parieto-occipital arachnoid cyst pattern is stable. Chest X-Ray 04/20/17 06:00 IMPRESSION: 1. Resolution of previous noted abnormal density in the lungs. 2. Mild cardiomegaly and minimal vascular congestion. Assessment & Plan - Diagnosis (1) Cardiomyopathy Qualifiers: Cardiomyopathy type: unspecified Qualified Code(s): I42.9 - Cardiomyopathy , unspecified Is this a current diagnosis for this admission?: Yes (2) Hypertension Qualifiers: Hypertension type: essential hypertension Qualified Code(s): I10 - Essential (primary) hypertension Is this a current diagnosis for this admission?: Yes (3) Sleep apnea syndrome Qualifiers: Sleep apnea type: unspecified type Qualified Code(s): G47.30 - Sleep apnea , unspecified Is this a current diagnosis for this admission?: Yes (4) Dyslipidemia Is this a current diagnosis for this admission?: Yes (5) Chronic kidney disease (CKD) Qualifiers: Chronic kidney disease stage: stage 3 (moderate) Qualified Code(s): N18.3 - Chronic kidney disease, stage 3 (moderate) Is this a current diagnosis for this admission?: Yes (6) Diabetes type 2, controlled Qualifiers: Diabetes mellitus complication status: with unspecified complications Diabetes mellitus mcfp insulin use: unspecified buttermaker continuous churn insulin use status Qualified Code(s): E11.8 - Type 2 diabetes mellitus with unspecified complications Is this a current diagnosis for this admission?: Yes (7) Paroxysmal atrial fibrillation Is this a current diagnosis for this admission?: Yes (8) CHF (congestive heart failure) Qualifiers: Congestive heart failure type: systolic Congestive heart failure chronicity : acute on chronic Qualified Code(s): I50.23 - Acute on chronic systolic ( congestive) heart failure Is this a current diagnosis for this admission?: Yes - Notes Notes: Cardiomyopathy: Recommend optimizing medical therapy gradually. Currently patient is somewhat reluctant to let me adjust his medication. He was requested to keep close cardiology follow-up with his primary care director general. Hypertension: Reasonably well controlled. Blood pressure goal in this patient is 135/85 or less. This was discussed with the patient. Currently blood pressure under reasonable control. Better medication for this patient are TWIN inhibitor/ARB/beta selena etc. discussed side effects of uncontrolled hypertension and also severe hypotension. Sleep apnea syndrome: Patient would benefit from nightly CPAP use. Dyslipidemia: LDL goal is less than 70 in this gentleman. Continue statin therapy. Chronic kidney disease: Currently stable. Paroxysmal atrial fibrillation: Continue Eliquis therapy and rate control with beta-selena [place]. CHF: Currently seems compensated by clinical exam. Patient will benefit from defibrillator placement and peripheral be should be discharged on LifeVest. Discussed ICD placement and LifeVest in the interim with the patient. Have called [facility]est access representative, completed requisition form, discussed need for close follow-up with his primary care director general and expeditious referral for defibrillator placement. Risk benefits of internal defibrillator placement and external defibrillator etc. discussed. - Time Time with patient: Greater than 35 minutes - Significant time spent discussing defibrillator, external and internal defibrillator with the patient. Also time spent talking to the [employer] access representative, completing the requisition forms etc. CODE STATUS was discussed, patient remains full code. Surrogate decision- maker unchanged. Multiple medical problems were addressed. More than 50% of the time spent coordinating care, discussing management plans with involved caregivers. Management plans discussed with involved personnels. Medical decision making was of high complexity, patient's has multiple comorbidities. Medications reviewed and adjusted accordingly: Yes
--- NOTE | 2017-04-23 20:01 | PDOC PROGRESS REPORT ---
Subjective Progress Note for:: 04/23/17 Subjective:: Patient was seen on morning rounds. He received his instructions about external LifeVest placement. He had no other questions. Pt is denying any chest arm or neck discomfort. Patient denying any PND, orthopnea. Patient denied any sustained palpitations, dizziness, syncope, near syncope. Patient denying any fever chills. Patient denying any other significant discomfort. Patient is maintaining sinus rhythm. Review of systems: Rest review of systems negative. Medications: Medications have been reviewed. Physical Exam Vital Signs: Temp Pulse Resp BP Pulse Ox 97.4 F 82 17 114/70 100 04/23/17 13:46 04/23/17 13:46 04/23/17 13:46 04/23/17 13:46 04/23/17 13:46 Intake & Output 04/22/17 04/23/17 04/24/17 06:59 06:59 06:59 Intake Total 1153 1495 Output Total 890 1900 Balance 263 -405 Weight 80.9 kg 80.9 kg Exam: GENERAL: well-nourished and in no acute distress. Alert and oriented x3 HEAD: Atraumatic, normocephalic. EYES: Pupils equal round and reactive to light, extraocular movements intact, sclera anicteric, conjunctiva are normal. ENT: TMs normal, nares patent, oropharynx clear without exudates. Moist mucous membranes. No oral ulcerations or bleeding gums noted NECK: supple without lymphadenopathy. Trachea is central. No cervical or axillary lymphadenopathy noted. Carotids are 2+, JVD WNL LUNGS: Respiration seems nonlabored, no significant accessory muscle action noted. Breath sounds clear to auscultation bilaterally and equal noted. No wheezes rales or rhonchi noted. No significant dullness noted on percussion. CHEST: Palpation of the chest wall shows no significant chest wall tenderness. No other significant abnormalities noted. HEART: [place] [employer], No PSH, 1/6 [place] aortic area, 1/6 gaines systolic murmur mitral area, no rubs, no gallops. ABDOMEN: Soft, no significant tenderness appreciated, normoactive bowel sounds. No guarding, no rebound. No rigidity noted . No masses appreciated. EXTREMITIES: Pedal pulses are 1-2+, no calf tenderness noted. No clubbing or cyanosis.trace to 1+ pedal edema noted NEUROLOGICAL: Focused neurological exam showed no significant neurologic deficit. Normal speech, no focal weakness appreciated. PSYCH: Normal mood, normal affect. Judgment and insight within normal limits. SKIN: No significant ecchymosis, rash, ulcerations or signs of pruritus noted. MUSCULOSKELETAL EXAM: No significant joint swelling noted. Results Laboratory Results: 04/22/17 04:08 04/22/17 04:08 04/17/17 23:56 Blood Blood Culture - Final NO GROWTH IN 5 DAYS 04/18/17 04/18/17 04/20/17 02:39 08:44 01:52 Creatine Kinase 76 CK-MB (CK-2) Troponin I 0.034 0.028 NT-Pro-B Natriuret Pep 04/20/17 01:52 Creatine Kinase CK-MB (CK-2) 1.08 Troponin I 0.034 NT-Pro-B Natriuret Pep 99947 H EKG Comments: Sinus rhythm without any sustained tachycardia or bradycardia arrhythmias. Impressions: Carotid Doppler Study 04/20/17 00:00 IMPRESSION: NO HEMODYNAMICALLY SIGNIFICANT STENOSIS. Head CT 04/20/17 00:34 IMPRESSION: No acute findings. Chronic 7 cm left posterior parieto-occipital arachnoid cyst pattern is stable. Chest X-Ray 04/20/17 06:00 IMPRESSION: 1. Resolution of previous noted abnormal density in the lungs. 2. Mild cardiomegaly and minimal vascular congestion. Assessment & Plan - Diagnosis (1) Cardiomyopathy Qualifiers: Cardiomyopathy type: unspecified Qualified Code(s): I42.9 - Cardiomyopathy , unspecified Is this a current diagnosis for this admission?: Yes (2) Hypertension Qualifiers: Hypertension type: essential hypertension Qualified Code(s): I10 - Essential (primary) hypertension Is this a current diagnosis for this admission?: Yes (3) Sleep apnea syndrome Qualifiers: Sleep apnea type: unspecified type Qualified Code(s): G47.30 - Sleep apnea , unspecified Is this a current diagnosis for this admission?: Yes (4) Dyslipidemia Is this a current diagnosis for this admission?: Yes (5) Chronic kidney disease (CKD) Qualifiers: Chronic kidney disease stage: stage 3 (moderate) Qualified Code(s): N18.3 - Chronic kidney disease, stage 3 (moderate) Is this a current diagnosis for this admission?: Yes (6) Diabetes type 2, controlled Qualifiers: Diabetes mellitus complication status: with unspecified complications Diabetes mellitus intermediate insulin use: unspecified intermediate insulin use status Qualified Code(s): E11.8 - Type 2 diabetes mellitus with unspecified complications Is this a current diagnosis for this admission?: Yes (7) Paroxysmal atrial fibrillation Is this a current diagnosis for this admission?: Yes (8) CHF (congestive heart failure) Qualifiers: Congestive heart failure type: systolic Congestive heart failure chronicity : acute on chronic Qualified Code(s): I50.23 - Acute on chronic systolic ( congestive) heart failure Is this a current diagnosis for this admission?: Yes - Notes Notes: Cardiomyopathy: Patient was informed about need to wear LifeVest as much as possible. Patient to secure appointment to see slot machine key person as an outpatient from his primary care grape crusher. Currently patient is somewhat reluctant to let me adjust his medication, he does not want to adjust his medications as he is concerned about his blood pressure. He was requested to keep close cardiology follow-up with his primary care grape crusher. Hypertension: Reasonably well controlled. Blood pressure goal in this patient is 135/85 or less. This was discussed with the patient. Currently blood pressure under reasonable control. Better medication for this patient are TWIN inhibitor/ARB/beta selena etc. discussed side effects of uncontrolled hypertension and also severe hypotension. Sleep apnea syndrome: Patient would benefit from nightly CPAP use. Dyslipidemia: LDL goal is less than 70 in this gentleman. Continue statin therapy. Chronic kidney disease: Currently stable. Paroxysmal atrial fibrillation: Continue Eliquis therapy and rate control with beta-selena [place]. CHF: Currently seems compensated by clinical exam. Patient will benefit from defibrillator placement and peripheral be should be discharged on LifeVest. Discussed ICD placement again with the patient. In the interim he was told that he should keep wearing LifeVest. Risk benefits of internal defibrillator placement and external defibrillator etc. discussed. - Time Time with patient: Greater than 35 minutes - CODE STATUS was discussed, patient remains full code. Surrogate decision-maker unchanged. Multiple medical problems were addressed. More than 50% of the time spent coordinating care, discussing management plans with involved caregivers. Management plans discussed with involved personnels. Medical decision making was of high complexity, patient's has multiple comorbidities. Medications reviewed and adjusted accordingly: Yes
[2017-04-24] MEDS ORDERED: ASPIRIN 81 MG TABLET, ENT COATED PO SCH (10:00)
== END 2017-04-23 14:25 | disposition home or self-care (01) | DRG 189 ==
LOC: ER 19:55 → UNDOADMIN 22:28 → EH 22:28 → 4N 23:22 → EH 23:22
PROVIDERS: ADMIT Family Medicine; ATTEND Family Medicine
DX: J96.21 Acute and chronic respiratory failure with hypoxia (principal); J18.9 Pneumonia, unspecified organism; I50.23 Acute on chronic systolic (congestive) heart failure; J44.1 Chronic obstructive pulmonary disease with (acute) exacerbation; J44.0 Chronic obstructive pulmonary disease with (acute) lower respiratory infection; N17.9 Acute kidney failure, unspecified; G25.9 Extrapyramidal and movement disorder, unspecified; I13.0 Hypertensive heart and chronic kidney disease with heart failure and stage 1 through stage 4 chronic kidney disease, or unspecified chronic kidney disease; I42.9 Cardiomyopathy, unspecified; E11.22 Type 2 diabetes mellitus with diabetic chronic kidney disease; N18.3 Chronic kidney disease, stage 3 (moderate); I48.0 Paroxysmal atrial fibrillation; I34.1 Nonrheumatic mitral (valve) prolapse; Z79.01 Long term (current) use of anticoagulants; K21.9 Gastro-esophageal reflux disease without esophagitis; I25.10 Atherosclerotic heart disease of native coronary artery without angina pectoris; E78.5 Hyperlipidemia, unspecified; G47.33 Obstructive sleep apnea (adult) (pediatric); M10.9 Gout, unspecified; M19.90 Unspecified osteoarthritis, unspecified site; Z79.899 Other long term (current) drug therapy; Z79.4 Long term (current) use of insulin; Z99.81 Dependence on supplemental oxygen; I25.2 Old myocardial infarction
CPT/HCPCS: 36415; 70450; 71010; 80048; 80053; 80061; 80074; 81001; 82550; 82553; 82962; 83735; 83880; 84484; 85025; 85610; 85730; 87040; 93005; 93010; 93306; 93880; 94640; 94660; 94799; 96365; 99285; J0456; J0696; J1200; J1815; J1940; J3490; J7060; J7620

== ENCOUNTER 2017-04-29 08:02 | Inpatient (IN) | payer OTHER, MEDICARE ==
--- NOTE | 2017-04-29 08:34 | ER Document Report ---
ED Dizziness/Weakness - General Chief Complaint: Altered Mental Status Stated Complaint: BACK PAIN Time Seen by Provider: 04/29/17 08:15 Mode of Arrival: Medic Information source: Relative Notes: Patient is a 66-year-old male who had an an STEMI in December and was just admitted on the of this month for pneumonia here who wears a defibrillator , LifeVest, who presents to the ER today via EMS because his found him on the floor this morning, not knowing who he was or where he was or how he got in there. Patient is usually completely independent and does not have any disorientation or memory issues as of his norm. states that yesterday at lunchtime she did notice that he almost dropped his cup with his right hand which is also abnormal for him. He denies any weakness, numbness or tingling at this time. On arrival at the emergency department he does know who he is and where he is but cannot tell me the day or date. He continues to ask the same questions over and over again per . She states that he is however much better than he was whenever she found him on the floor this morning. He denies any chest pain, shortness of breath or any issues at this time. He does not want to be in the hospital. Last night he was wearing his defibrillator/ LifeVest/and took a shower and never put it back on. He was not wearing it when this event occurred. TRAVEL OUTSIDE OF THE [place] IN LAST 30 DAYS: No - Related Data Allergies/Adverse Reactions: promethazine [From Phenergan] Adverse Reaction (Intermediate, Verified 04/20/17 11:26) Dystonia Past Medical History - General Information source: Patient, Relative - Social History Smoking Status: Never Smoker Chew tobacco use (# tins/day): No Frequency of alcohol use: None Drug Abuse: None Family History: Reviewed & Not Pertinent, DM, Hypertension - Past Medical History Cardiac Medical History: Reports: Hx Atrial Fibrillation - Paroxysmal, Hx Congestive Heart Failure - Systolic; ejection fraction 2016 of approximately 20% ., Hx Coronary Artery Disease, Hx Heart Attack - [place] December 2016, Hx Hypercholesterolemia, Hx Hypertension Denies: Hx DVT, Hx Pulmonary Embolism Pulmonary Medical History: Reports: Hx Bronchitis, Hx COPD - Nightly and as needed 2 L oxygen per nasal cannula, Hx Sleep Apnea - Nasal CPAP; pressure 10 Denies: Hx Asthma Neurological Medical History: Denies: Hx Seizures Endocrine Medical History: Reports: Hx Diabetes Mellitus Type 2. Denies: Hx Diabetes Mellitus Type 1, Hx Hyperthyroidism, Hx Hypothyroidism Renal/ Medical History: Reports: Hx Renal Insufficiency. Denies: Hx Peritoneal Dialysis GI Medical History: Reports: Hx Gastroesophageal Reflux Disease, Hx Colonoscopy , Hx Endoscopy. Denies: Hx Cirrhosis Musculoskeltal Medical History: Reports Hx Arthritis, Reports Hx Gout - Primarily affecting left ankle and foot, Reports Hx Musculoskeletal Deformity - Back pain for 4-5 years Psychiatric Medical History: Denies: Hx Depression Infectious Medical History: Denies: Hx C-Diff, Hx MRSA Past Surgical History: Reports: Hx Orthopedic Surgery - right rotator cuff - Immunizations Hx Diphtheria, Pertussis, Tetanus Vaccination: Yes Hx Pneumococcal Vaccination: 11/05/13 Review of Systems - Review of Systems Constitutional: No symptoms reported EENT: No symptoms reported Cardiovascular: See HPI Respiratory: No symptoms reported Gastrointestinal: No symptoms reported Genitourinary: No symptoms reported Male Genitourinary: No symptoms reported Musculoskeletal: No symptoms reported Skin: No symptoms reported Hematologic/Lymphatic: No symptoms reported Neurological/Psychological: No symptoms reported Physical Exam - Vital signs Vitals: Temp Pulse Resp BP Pulse Ox 97.4 F 73 16 122/80 100 04/29/17 08:06 04/29/17 08:06 04/29/17 08:06 04/29/17 08:06 04/29/17 08:06 - Notes Notes: PHYSICAL EXAMINATION: GENERAL: Slightly disoriented, but in no acute distress. HEAD: Atraumatic, normocephalic. EYES: Pupils equal round and reactive to light, extraocular movements intact, sclera anicteric, conjunctiva are normal. NECK: Normal range of motion, supple without lymphadenopathy LUNGS: CTAB and equal. No wheezes rales or rhonchi. HEART: Chest nontender to palpation, regular rate and rhythm without murmurs ABDOMEN: Soft, no tenderness. No guarding, no rebound BACK: no vertebral tenderness, normal ROM GI/: no CVA tenderness EXTREMITIES: Normal range of motion, no pitting edema. No cyanosis. NEUROLOGICAL: Keeps asking the same questions over and over, otherwise cranial nerves grossly intact. Normal sensory/motor exams. Good and equal strength bilaterally, Kernig and Brudzinski's signs negative, normal heel to soto testing PSYCH: Normal mood, normal affect. SKIN: Warm, Dry, normal turgor, no rashes or lesions noted Course - Re-evaluation Re-evalutation: 04/29/17 14:14 CT of the head, chest x-ray, lab work including cardiac enzymes, all normal today, urinalysis without infection, urine drug screen negative. Patient has returned more to his baseline than before, however is still not at his baseline per , asking questions over and over again. Hospitalist, Dr. Dewitt agrees to accept patient at this time for, possible cardiac event causing him to be down for unknown period of time. - Vital Signs Vital signs: Temp Pulse Resp BP Pulse Ox 97.4 F 86 12 130/87 H 100 04/29/17 08:06 04/29/17 11:20 04/29/17 11:20 04/29/17 11:20 04/29/17 11:20 - Laboratory Result Diagrams: 04/29/17 09:19 04/29/17 09:19 Laboratory results interpreted by me: 04/29/17 04/29/17 04/29/17 09:19 09:19 09:19 Hgb 12.9 L MCV 77 L MCH 23.6 L MCHC 30.5 L RDW 20.7 H Seg Neutrophils % 84.1 H Lymphocytes % 8.5 L Absolute Neutrophils 8.7 H Potassium 3.5 L BUN 38 H Creatinine 1.71 H Est GFR ( Amer) 48 L Est GFR (Non-Af Amer) 40 L Glucose 203 H Total Bilirubin 1.5 H Direct Bilirubin 0.9 H AST 114 H ALT 147 H Alkaline Phosphatase 249 H NT-Pro-B Natriuret Pep 8650 H Urine Protein Urine Ketones 04/29/17 11:15 Hgb MCV MCH MCHC RDW Seg Neutrophils % Lymphocytes % Absolute Neutrophils Potassium BUN Creatinine Est GFR ( Amer) Est GFR (Non-Af Amer) Glucose Total Bilirubin Direct Bilirubin AST ALT Alkaline Phosphatase NT-Pro-B Natriuret Pep Urine Protein 30 H Urine Ketones TRACE H Discharge - Discharge Clinical Impression: Anticoagulated Altered mental status, unspecified Qualifiers: Altered mental status type: disorientation Qualified Code(s): R41.0 - Disorientation, unspecified Condition: Stable Disposition: ADMITTED INPATIENT Admitting Provider: Hospitalist Unit Admitted: [facility]
[2017-04-29 09:31] LABS: ABSOLUTE BASOPHILS # (AUTO) 0.1 10^3/uL (0.0-0.2); ABSOLUTE EOSINOPHILS # (AUTO) 0.1 10^3/uL (0.0-0.6); ABSOLUTE LYMPHOCYTES (AUTO) 0.9 10^3/uL (0.5-4.7); ABSOLUTE MONOCYTES (AUTO) 0.6 10^3/uL (0.1-1.4); ABSOLUTE NEUT (AUTO) 8.7 10^3/uL (1.7-8.2); BASOPHILS % (AUTO) 0.9 % (0-2); EOSINOPHILS % (AUTO) 0.5 % (0-6); HEMATOCRIT 42.5 % (37.9-51.0); HEMOGLOBIN 12.9 g/dL (13.5-17.0); HGB HCT DIFFERENCE -3.8; LYMPHOCYTES % (AUTO) 8.5 % (13-45); MEAN CORPUSCULAR HEMOGLOBIN 23.6 pg (27.0-33.4); MEAN CORPUSCULAR HGB CONC 30.5 g/dL (32.0-36.0); MEAN CORPUSCULAR VOLUME 77 fl (80-97); RED BLOOD COUNT 5.49 10^6/uL (4.35-5.55); RED CELL DISTRIBUTION WIDTH 20.7 % (11.5-14.0); SEGMENTED NEUTROPHILS % (AUTO) 84.1 % (42-78); WHITE BLOOD COUNT 10.3 10^3/uL (4.0-10.5)
[2017-04-29 09:42] LABS: PROTHROMBIN TIME 13.8 SEC (11.4-15.4)
--- NOTE | 2017-04-29 09:42 | RADIOLOGY REPORT (SQ) ---
EXAM DESCRIPTION: CT HEAD WITHOUT COMPLETED DATE/TIME: 04/29/2017 9:32 am REASON FOR STUDY: disorientation, found on floor COMPARISON: 12/17/2011, 12/29/2016, 04/20/2017 TECHNIQUE: Axial images acquired through the brain without intravenous contrast. Images reviewed wi th bone, brain and subdural windows. Images stored on PACS. All CT scanners at this facility use dose modulation, iterative reconstruction, and/or weight based d osing when appropriate to reduce radiation dose to as low as reasonably achievable (ALARA). [facility]: Dose Right [facility]: CareDose [facility]: Dose Right [facility]: Teradose 4D [facility]: [employer] RADIATION DOSE: Up-to-date CT equipment and radiation dose reduction techniques were employed. CTDIv ol: 64.6 mGy. DLP: 1163 mGy-cm. mGy. LIMITATIONS: None. FINDINGS: VENTRICLES: Normal size and contour. CEREBRUM: No masses. No hemorrhage. No midline shift. Normal reilly/white matter differentiation. N o evidence for acute infarction. CEREBELLUM: No masses. No hemorrhage. No alteration of density. No evidence for acute infarction. EXTRAAXIAL SPACES: Over the left parieto-occipital region, a 6.6 x 4.7 cm arachnoid cyst is present, with benign scalloping of the inner table of the left parietal and occipital calvarium, and mild mass effect on the left posterior parietal and occipital lobes. ORBITS AND GLOBE: No intra- or extraconal masses. Normal contour of globe without masses. CALVARIUM: No fracture. PARANASAL SINUSES: No fluid or mucosal thickening. SOFT TISSUES: No mass or hematoma. OTHER: No other significant finding. IMPRESSION: No acute findings. Stable left parieto-occipital arachnoid cyst compared to CT dating back to 12/17/2011 TECHNICAL DOCUMENTATION: JOB ID: [id number] Quality ID # [id number]: Final reports with documentation of one or more dose reduction techniques (e.g., Au tomated exposure control, adjustment of the mA and/or kV according to patient size, use of iterative reconstruction technique) 2010 [employer]- All Rights Reserved
[2017-04-29 09:43] LABS: PARTIAL THROMBOPLASTIN TIME 28.6 SEC (23.5-35.8)
--- NOTE | 2017-04-29 10:02 | RADIOLOGY REPORT (SQ) ---
EXAM DESCRIPTION: CHEST SINGLE VIEW COMPLETED DATE/TIME: 04/29/2017 9:45 am REASON FOR STUDY: found disoriented on the floor last night COMPARISON: Chest films 07/17/2007, 01/10/2017, 04/20/2017 EXAM PARAMETERS: NUMBER OF VIEWS: One view. TECHNIQUE: Single frontal radiographic view of the chest acquired. RADIATION DOSE: NA LIMITATIONS: None. FINDINGS: LUNGS AND PLEURA: No opacities, masses or pneumothorax. No pleural effusion. MEDIASTINUM AND HILAR STRUCTURES: No masses. Contour normal. HEART AND VASCULAR STRUCTURES: Stable mild to moderate cardiomegaly. BONES: No acute findings. HARDWARE: None in the chest. OTHER: No other significant finding. IMPRESSION: Stable mild moderate cardiomegaly. No acute infiltrates. TECHNICAL DOCUMENTATION: JOB ID: [id number]
[2017-04-29 10:11] LABS: CREATINE KINASE MB 0.97 ng/mL (<4.55); TROPONIN I 0.023 ng/mL
[2017-04-29 10:16] LABS: ALANINE AMINOTRANSFERASE 147 U/L (21-72); ALBUMIN 3.6 g/dL (3.5-5.0); ALKALINE PHOSPHATASE 249 U/L (38-126); ANION GAP 12 (5-19); ASPARTATE AMINO TRANSFERASE 114 U/L (17-59); BILIRUBIN,DIRECT 0.9 mg/dL (0.0-0.4); BILIRUBIN,TOTAL 1.5 mg/dL (0.2-1.3); BLOOD UREA NITROGEN 38 mg/dL (7-20); CALCIUM 9.7 mg/dL (8.4-10.2); CARBON DIOXIDE 25 mmol/L (22-30); CHLORIDE 106 mmol/L (98-107); CREATINE KINASE 88 U/L (55-170); CREATININE RESULT 1.71 mg/dL (0.52-1.25); GLUCOSE 203 mg/dL (75-110); POTASSIUM 3.5 mmol/L (3.6-5.0); SODIUM 142.5 mmol/L (137-145); TOTAL PROTEIN 6.5 g/dL (6.3-8.2)
[2017-04-29 11:41] LABS: APPEARANCE,URINE CLEAR; BILIRUBIN,URINE NEGATIVE (NEGATIVE); GLUCOSE, URINE NEGATIVE (NEGATIVE); KETONES,URINE TRACE mg/dL (NEGATIVE); LEUKOCYTE ESTERASE,URINE NEGATIVE (NEGATIVE); NITRITE,URINE NEGATIVE (NEGATIVE); PROTEIN,URINE 30 mg/dL (NEGATIVE); URINE SPECIFIC GRAVITY 1.017; UROBILINOGEN,URINE NEGATIVE mg/dL (<2.0)
[2017-04-29 12:22] LABS: URINE BARBITURATES SCREEN NEGATIVE; URINE METHADONE SCREEN NEGATIVE; URINE OPIATES LOW NEGATIVE; URINE PHENCYCLIDINE SCREEN NEGATIVE
[2017-04-29] MEDS ORDERED: DEXTROSE 50%-WATER 25 GM/50 ML DISP.SYRIN IV PRN ×4 (13:41→17:40)
[2017-04-29] MEDS ORDERED: ACETAMINOPHEN 325 MG TABLET PO PRN (13:41)
[2017-04-29] MEDS ORDERED: DEXTROSE 40% GEL 15 GM TUBE PO PRN ×6 (13:41→18:13)
[2017-04-29] MEDS ORDERED: PROMETHAZINE HCL INJ 25 MG/1 ML VIAL IV PRN (13:41)
[2017-04-29] MEDS ORDERED: GLUCAGON,HUMAN RECOMB 1 MG INJ SUBCUT PRN (13:41)
[2017-04-29] MEDS ORDERED: MAGNESIUM SULFATE/D5W 1 GM/100 ML RTUPB IV SCH (16:00)
[2017-04-29] MEDS: POTASSI CL 20 MEQ/50 ML RIDER 20 MEQ/50 ML RTUPB IV SCH ×2 (17:09→20:22)
[2017-04-29] MEDS ORDERED: INSULIN LISPRO 100 UNIT/ML 3 ML VIAL SUBCUT PRN ×3 (17:40→18:13)
[2017-04-29] MEDS ORDERED: GLUCAGON,HUMAN RECOMB 1 MG INJ IM PRN ×3 (17:40→18:13)
[2017-04-29] MEDS ORDERED: MAGNESIUM SULFATE 1 GM/D5W 100 ML IV SCH (18:00)
--- NOTE | 2017-04-29 18:03 | PDOC H&P ---
History of Present Illness Admission Date/PCP: 04/29/17 13:41 RUFINA LOWRY MD Patient complains of: Patient found down at home by History of Present Illness: BAM MORRISON is a 66 year old male -[place] male who presents to our hospital after being found down at 7:30 in the morning by . reports that patient was last seen normal at 9:30 PM. states that patient was not wearing his LifeVest the night before and when she found him this morning he was not wearing his LifeVest. states that he was confused and had difficulty answering questions. Patient has an extensive past medical history with severe cardiomyopathy EF of 15%. On prior admissions patient has been encouraged to use his LifeVest however patient has not been consistently wearing his LifeVest. Patient was recently admitted to the hospital for acute on chronic respiratory failure with hypoxia and was diagnosed with bilateral lung pneumonia. was unable to provide additional history. Emergency room called requesting admission to the hospital due to concern for TIA however discussed with emergency room staff that this most likely is not a TIA but anoxic brain injury related to cardiac arrhythmia. Past Medical History Cardiac Medical History: Reports: Atrial Fibrillation - Paroxysmal, Congestive Heart Failure - Systolic; ejection fraction 2017 of approximately 20%., Coronary Artery Disease, Myocardial Infarction - [place] December 2016, Hyperlipidema, Hypertension Denies: DVT, Pulmonary Embolism Pulmonary Medical History: Reports: Bronchitis, Chronic Obstructive Pulmonary Disease (COPD) - Nightly and as needed 2 L oxygen per nasal cannula, Sleep Apnea - Nasal CPAP; pressure 10 Denies: Asthma Neurological Medical History: Denies: Seizures Endocrine Medical History: Reports: Diabetes Mellitus Type 2 Denies: Diabetes Mellitus Type 1, Hyperthyroidism, Hypothyroidism GI Medical History: Reports: Gastroesophageal Reflux Disease Denies: Cirrhosis Musculoskeltal Medical History: Reports: Arthritis, Gout - Primarily affecting left ankle and foot Psychiatric Medical History: Denies: Depression Hematology: Reports: Anemia - Followed by Dr. Wilson; recent total GI workup. Infectious Medical History: Denies: Clostridium Difficile, Methicillin-Resistant Staph Aureus Past Surgical History Past Surgical History: Reports: Orthopedic Surgery - right rotator cuff Social History Information Source: Relative Lives with: Family, Spouse/Significant other Smoking Status: Never Smoker Frequency of Alcohol Use: None Hx Recreational Drug Use: No Drugs: None Hx Prescription Drug Abuse: No - Advance Directive Resuscitation Status: Full Code Family History Family History: Reviewed & Not Pertinent, DM, Hypertension Parental Family History Reviewed: Yes Children Family History Reviewed: Yes Sibling(s) Family History Reviewed.: Yes Medication/Allergy Allergies/Adverse Reactions: promethazine [From Phenergan] Adverse Reaction (Intermediate, Verified 04/20/17 11:26) Dystonia Review of Systems ROS unobtainable: Due to mental status Physical Exam Vital Signs: Temp Pulse Resp BP Pulse Ox 97.7 F 83 16 104/66 100 04/29/17 16:52 04/29/17 16:52 04/29/17 16:52 04/29/17 16:52 04/29/17 16:52 Intake & Output 04/28/17 04/29/17 04/30/17 06:59 06:59 06:59 Weight 49.9 kg General appearance: PRESENT: no acute distress, well-developed, well-nourished Head exam: PRESENT: atraumatic, normocephalic Eye exam: PRESENT: conjunctiva pink, EOMI, PERRLA. ABSENT: scleral icterus Ear exam: PRESENT: normal external ear exam Mouth exam: PRESENT: moist, tongue midline Neck exam: ABSENT: carotid bruit, JVD, lymphadenopathy, thyromegaly Respiratory exam: PRESENT: clear to auscultation shital. ABSENT: rales, rhonchi, wheezes Cardiovascular exam: PRESENT: RRR, systolic murmur - 3 out of 6 systolic ejection murmur. ABSENT: diastolic murmur, rubs Pulses: PRESENT: normal dorsalis pedis pul GI/Abdominal exam: PRESENT: normal bowel sounds, soft. ABSENT: distended, guarding, mass, organolmegaly, rebound, tenderness Extremities exam: PRESENT: full ROM. 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 No significant deficits noted motor and fine motor skills. Psychiatric exam: PRESENT: agitated Skin exam: PRESENT: dry, intact, warm. ABSENT: cyanosis, rash Results Impressions: Chest X-Ray 04/29/17 08:31 IMPRESSION: Stable mild moderate cardiomegaly. No acute infiltrates. Head CT 04/29/17 08:32 IMPRESSION: No acute findings. Stable left parieto-occipital arachnoid cyst compared to CT dating back to 2011 Assessment & Plan - Diagnosis (1) Acute metabolic encephalopathy Is this a current diagnosis for this admission?: Yes Plan: Suspect anoxic brain injury secondary to cardiac arrhythmia/suspected sudden cardiac arrest: We will order EEG and MRI. Patient was not wearing his LifeVest and patient most likely has experienced a cardiac arrhythmia that has resulted in patient's current presentation. Family is unable to state how long patient was found down therefore we will have to monitor to see if patient's neurologic status improves. Neurology has been consulted awaiting their input. Cardiology also has been consulted as well. ER was concerned that patient possibly had a TIA however feel that this is less likely. (2) Anoxic brain injury Is this a current diagnosis for this admission?: Yes Plan: Most likely secondary to cardiac arrhythmia/suspected cardiac arrest: Patient has EEG and MRI ordered. Neurology has been consulted. Will have PT OT and speech evaluate patient. (3) Cardiac arrhythmia, unspecified Qualifiers: Arrhythmia type: unspecified cardiac arrhythmia Qualified Code(s): I49.9 - Cardiac arrhythmia, unspecified Is this a current diagnosis for this admission?: Yes Plan: We will place patient on telemetry. Will have patient wear LifeVest while in hospital. Cardiology has been consulted. Patient recently had 2D echo done that demonstrated an EF of 15%. Patient is also had carotids done recently that demonstrated no significant disease. The studies will not be repeated. Patient had CT of the head demonstrated no acute findings. (4) CHF (congestive heart failure) Qualifiers: Congestive heart failure type: systolic Congestive heart failure chronicity : chronic Qualified Code(s): I50.22 - Chronic systolic (congestive) heart failure Is this a current diagnosis for this admission?: No Plan: Patient appears to be euvolemic. Patient not requiring any supplemental oxygen to maintain sats. Patient's chest x-ray shows stable cardiomegaly which would be expected with someone with an EF of 15%. Do not feel that there is any acute process occurring at this time. Will not place patient on maintenance fluids at this time. Patient will be seen by speech therapy tomorrow and will reevaluate patient's neurological status and if patient is able to eat by mouth will allow pt to eat and minimize fluid restriction. (5) Anemia of chronic disease Is this a current diagnosis for this admission?: Yes Plan: We will continue to monitor H&H (6) Dyslipidemia Is this a current diagnosis for this admission?: Yes Plan: We will continue statin once home medications have been entered. (7) Hypertension Qualifiers: Hypertension type: essential hypertension Qualified Code(s): I10 - Essential (primary) hypertension Is this a current diagnosis for this admission?: Yes Plan: Continue patient's home medications once medications have been entered into the system. (8) Elevated LFTs Is this a current diagnosis for this admission?: Yes Plan: Possibly related to hepatic congestion versus ischemia: Patient's liver enzymes were elevated during last admission. We will continue to monitor. (9) CKD (chronic kidney disease), stage III Is this a current diagnosis for this admission?: Yes Plan: Patient's renal function appears to be at baseline. We will continue to monitor renal function closely. 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 (11) Paroxysmal atrial fibrillation Is this a current diagnosis for this admission?: Yes Plan: We will continue patient's Eliquis once medications have been entered into the system. - Time Time Spent: 30 to 50 Minutes
[2017-04-29] MEDS ORDERED: DEXTROSE 50%-WATER SYRINGE 25 GM/50 ML DOSE IV PRN ×2 (18:07→18:13)
[2017-04-29] MEDS ORDERED: DEXTROSE 40% GEL 15 GM TUBE X 2 PO PRN ×2 (18:07→18:13)
[2017-04-29] MEDS ORDERED: DEXTROSE 50%-WATER SYRINGE 12.5 GM/25 ML DOSE IV PRN ×2 (18:07→18:13)
[2017-04-29] MEDS ORDERED: POTASSIUM CHLORIDE 20 MEQ/50 ML RTU IV ONE (19:00)
--- NOTE | 2017-04-29 19:07 | RADIOLOGY REPORT (SQ) ---
EXAM DESCRIPTION: MRI HEAD WITHOUT COMPLETED DATE/TIME: 04/29/2017 6:43 pm REASON FOR STUDY: Acute Metabolic Encephalopathy Anoxic Brain vs CVA COMPARISON: None. TECHNIQUE: Multiplanar imaging includes non-contrasted T1, T2, FLAIR, and diffusion with ADC map seq uences. Images stored on PACS. LIMITATIONS: None. FINDINGS: ANATOMY: 7 cm left parietal arachnoid cyst. Normal vascular flow voids. Pituitary fossa n ormal. CSF SPACES: Normal in size and contour. No hemorrhage. CEREBRUM: Sulci and gyri normal in size and contour. Normal white matter signal on FLAIR imaging. No evidence of hemorrhage, mass, or extraaxial fluid collection. POSTERIOR FOSSA: No signal alteration. No hemorrhage. No edema, masses or mass effect. Internal shefali tory canals, cerebello-pontine angles, mastoids normal. DIFFUSION IMAGING: Negative for acute or sub-acute infarction. ORBITS: No masses. Globes normal. PARANASAL SINUSES: No fluid levels. Mucosa normal. OTHER: No other significant finding. IMPRESSION: Negative for acute or sub-acute infarction. EVIDENCE OF ACUTE STROKE: NO. TECHNICAL DOCUMENTATION: JOB ID: [id number] [employer]- All Rights Reserved
[2017-04-29] MEDS ORDERED: NITROGLYCERIN 0.4 MG/TAB 25 TAB/BOTTLE SL PRN (19:08)
--- NOTE | 2017-04-29 21:50 | EKG REPORT ---
SEVERITY:- ABNORMAL ECG - SINUS RHYTHM PROBABLE LEFT ATRIAL ABNORMALITY LEFT ANTERIOR FASCICULAR BLOCK ABNRM R PROG, CONSIDER ASMI OR LEAD PLACEMENT BORDERLINE T WAVE ABNORMALITIES BORDERLINE PROLONGED QT INTERVAL : Confirmed by: Dionicio Mckeon 29-Apr-2017 21:49:32
[2017-04-29] MEDS ORDERED: ATORVASTATIN CALCIUM 40 MG TABLET PO SCH (22:00)
[2017-04-29] MEDS: METOPROLOL SUCCINATE 25 MG TAB.SR.24H PO SCH (23:07)
[2017-04-29] MEDS: APIXABAN 5 MG TABLET PO SCH (23:08)
--- NOTE | 2017-04-29 23:24 | PDOC CONSULTATION ---
Consultation Consult Date: 04/29/17 Attending physician:: ANGEL HOLTTECHRISSY Consult reason:: Mental status changes History of Present Illness Admission Date/PCP: 04/29/17 13:41 RUFINA LOWRY MD Patient complains of: Altered mental status and possible syncope History of Present Illness: BAM MORRISON is a 66 year old male -[place] male who presents to our hospital after being found down at 7:30 in the morning by . reports that patient was last seen normal at 9:30 PM. states that patient was not wearing his LifeVest the night before and when she found him this morning he was not wearing his LifeVest. states that he was confused and had difficulty answering questions. Patient has an extensive past medical history with severe cardiomyopathy EF of 15%. On prior admissions patient has been encouraged to use his LifeVest however patient has not been consistently wearing his LifeVest. Patient was recently admitted to the hospital for acute on chronic respiratory failure with hypoxia and was diagnosed with bilateral lung pneumonia. was unable to provide additional history. Emergency room called requesting admission to the hospital due to concern for TIA however discussed with emergency room staff that this most likely is not a TIA but anoxic brain injury related to cardiac arrhythmia. Patient was recently hospitalized with respiratory distress and pneumonia as well as CHF. Patient was subsequently discharged home on LifeVest. Patient has long-standing low EF at least from previous echocardiogram from December of this month. Past Medical History Cardiac Medical History: Reports: Atrial Fibrillation - Paroxysmal, Congestive Heart Failure - Systolic; ejection fraction 2017 of approximately 20%., Coronary Artery Disease, Myocardial Infarction - [place] December 2016, Hyperlipidema, Hypertension Denies: DVT, Pulmonary Embolism Pulmonary Medical History: Reports: Bronchitis, Chronic Obstructive Pulmonary Disease (COPD) - Nightly and as needed 2 L oxygen per nasal cannula, Sleep Apnea - Nasal CPAP; pressure 10 Denies: Asthma Neurological Medical History: Denies: Seizures Endocrine Medical History: Reports: Diabetes Mellitus Type 2 Denies: Diabetes Mellitus Type 1, Hyperthyroidism, Hypothyroidism GI Medical History: Reports: Gastroesophageal Reflux Disease Denies: Cirrhosis Musculoskeltal Medical History: Reports: Arthritis, Gout - Primarily affecting left ankle and foot Psychiatric Medical History: Denies: Depression Hematology: Reports: Anemia - Followed by Dr. Wilson; recent total GI workup. Infectious Medical History: Denies: Clostridium Difficile, Methicillin-Resistant Staph Aureus Past Surgical History Past Surgical History: Reports: Orthopedic Surgery - right rotator cuff Social History Information Source: Patient Lives with: Family, Spouse/Significant other Smoking Status: Never Smoker Frequency of Alcohol Use: None Hx Recreational Drug Use: No Drugs: None Hx Prescription Drug Abuse: No - Advance Directive Resuscitation Status: Full Code Surrogate healthcare decision maker:: Spouse Family History Family History: DM, Hypertension Parental Family History Reviewed: Yes Children Family History Reviewed: Yes Sibling(s) Family History Reviewed.: Yes Medication/Allergy Home Medications: Apixaban [Eliquis 5 mg Tablet] 5 mg PO Q12 04/29/17 Atorvastatin Calcium [Lipitor 40 mg Tablet] 40 mg PO QHS 04/29/17 Baclofen [Baclofen 20 Mg Tablet] 20 mg PO TIDP PRN 04/29/17 Cholecalciferol (Vitamin D3) [Vitamin D3 1000 Unit Tablet] 1,000 unit PO BID Colchicine [Colchicine 0.6 mg Tablet] 0.6 mg PO BIDP PRN 04/29/17 Cyanocobalamin (Vitamin B-12) [Vitamin B-12] 1,000 mcg PO DAILY 04/29/17 Doxycycline Hyclate [Vibramycin 100 mg Tablet] 100 mg PO BID 04/29/17 Furosemide [Lasix 20 mg Tablet] 20 mg PO DAILY 04/29/17 Glimepiride [Amaryl 4 mg Tablet] 4 mg PO DAILY 04/29/17 Iron Ps Cmplx/Vit B12/FA [Ferrex 150 Forte Capsule] 1 each PO DAILY 04/29/17 Linagliptin [Tradjenta] 5 mg PO DAILY 04/29/17 Lisinopril [Prinivil 2.5 mg Tablet] 2.5 mg PO DAILY 04/29/17 Metoprolol Succinate [Toprol Xl 25 mg Tab.sr] 12.5 mg PO Q12 04/29/17 Midodrine HCl [Proamatine 5 Mg Tablet] 5 mg PO TID 04/29/17 Nitroglycerin [Nitrostat 0.4 mg (1/150 Gr) Tabs 25/Bottle] 1 tab SL Q5MP PRN Pantoprazole Sodium [Protonix] 40 mg PO DAILY 04/29/17 Tramadol HCl [Ultram 50 mg Tablet] 50 mg PO TIDP PRN 04/29/17 Allergies/Adverse Reactions: promethazine [From Phenergan] Adverse Reaction (Intermediate, Verified 04/20/17 11:26) Dystonia Review of Systems Constitutional: ABSENT: chills, fever(s), headache(s), weight gain, weight loss Eyes: ABSENT: visual disturbances Ears: ABSENT: hearing changes Nose, Mouth, and Throat: PRESENT: headache(s). ABSENT: as per HPI, mouth pain, sore throat, vertigo, other Cardiovascular: PRESENT: dyspnea on exertion, edema. ABSENT: chest pain, palpitations Respiratory: PRESENT: cough, dyspnea. ABSENT: hemoptysis Gastrointestinal: ABSENT: abdominal pain, constipation, diarrhea, hematemesis, hematochezia, nausea, vomiting Genitourinary: ABSENT: dysuria, hematuria Musculoskeletal: ABSENT: joint swelling Integumentary: ABSENT: rash, wounds Neurological: PRESENT: confusion, dizziness, syncope. ABSENT: abnormal gait, abnormal speech, focal weakness Psychiatric: ABSENT: anxiety, depression, homidical ideation, suicidal ideation Endocrine: ABSENT: cold intolerance, heat intolerance, polydipsia, polyuria Hematologic/Lymphatic: ABSENT: easy bleeding, easy bruising Physical Exam Vital Signs: Temp Pulse Resp BP Pulse Ox 97.7 F 84 16 104/66 94 04/29/17 16:52 04/29/17 19:10 04/29/17 19:10 04/29/17 19:10 04/29/17 19:10 Intake & Output 04/28/17 04/29/17 04/30/17 06:59 06:59 06:59 Intake Total 95 Balance 95 Weight 49.9 kg General appearance: PRESENT: no acute distress, well-developed, well-nourished Head exam: PRESENT: atraumatic, normocephalic Eye exam: PRESENT: conjunctiva pink, EOMI, PERRLA. ABSENT: scleral icterus Ear exam: PRESENT: normal external ear exam Mouth exam: PRESENT: moist, neck supple, tongue midline Neck exam: ABSENT: carotid bruit, JVD, lymphadenopathy, thyromegaly Respiratory exam: PRESENT: clear to auscultation shital. ABSENT: rales, rhonchi, wheezes Cardiovascular exam: PRESENT: RRR, +S1, +S2, systolic murmur. ABSENT: diastolic murmur, rubs Pulses: PRESENT: normal carotid pulses, normal dorsalis pedis pul Vascular exam: PRESENT: normal capillary refill GI/Abdominal exam: PRESENT: normal bowel sounds, soft. ABSENT: distended, guarding, mass, organolmegaly, rebound, tenderness Rectal exam: PRESENT: deferred Extremities exam: PRESENT: full ROM. ABSENT: calf tenderness, clubbing, pedal edema Neurological exam: PRESENT: alert, awake, oriented to person, oriented to place , oriented to time, oriented to situation, CN II-XII grossly intact. ABSENT: motor sensory deficit Psychiatric exam: PRESENT: appropriate affect, normal mood. ABSENT: homicidal ideation, suicidal ideation Skin exam: PRESENT: dry, intact, warm. ABSENT: cyanosis, rash Results EKG Comments: Sinus rhythm, low voltage QRS complex, left axis deviation, nonprogression of R- wave anterior precordial lead. No acute ST segment changes. Impressions: Head MRI 04/29/17 00:00 IMPRESSION: Negative for acute or sub-acute infarction. EVIDENCE OF ACUTE STROKE: NO. Chest X-Ray 04/29/17 08:31 IMPRESSION: Stable mild moderate cardiomegaly. No acute infiltrates. Head CT 04/29/17 08:32 IMPRESSION: No acute findings. Stable left parieto-occipital arachnoid cyst compared to CT dating back to 2011 Assessment & Plan - Diagnosis (1) Altered mental status, unspecified Qualifiers: Altered mental status type: disorientation Qualified Code(s): R41.0 - Disorientation, unspecified (2) CHF (congestive heart failure) Qualifiers: Congestive heart failure type: systolic Congestive heart failure chronicity : chronic Qualified Code(s): I50.22 - Chronic systolic (congestive) heart failure Is this a current diagnosis for this admission?: No (3) Cardiomyopathy Qualifiers: Cardiomyopathy type: unspecified Qualified Code(s): I42.9 - Cardiomyopathy , unspecified Is this a current diagnosis for this admission?: Yes (4) Chronic kidney disease (CKD) Qualifiers: Chronic kidney disease stage: stage 3 (moderate) Qualified Code(s): N18.3 - Chronic kidney disease, stage 3 (moderate) Is this a current diagnosis for this admission?: Yes (5) Diabetes type 2, controlled Qualifiers: Diabetes mellitus complication status: with unspecified complications Diabetes mellitus alf insulin use: 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 Patient now alert and oriented 3. Most likely related to ventricular dysrhythmia. Discussed that patient will benefit from a defibrillator placement. And this will be arranged. CT and MRI of the brain were negative in ruling out a cerebrovascular event. Syncope: Most likely cardiac arrhythmia related. Patient is at high risk for cardiac dysrhythmia having been noted to have decreased LVEF. Congestive heart failure: Patient is noted to have elevated JVP. Continue current diuretic therapy and other therapy for CHF optimization. Cardiomyopathy: Based on previous nuclear stress test from [place], patient has nonischemic cardiomyopathy. Patient's EF has been chronically low for more than 3 months. Therefore would be a candidate for prophylactic defibrillator placement. Chronic kidney disease: Currently stable. Diabetes: Recommend good control of blood sugar. However should avoid any hypoglycemia. Patient being expertly managed by primary care MMary. Dyslipidemia: Currently is stable. Continue statin therapy. Obstructive sleep apnea: Patient advised compliance with it. - Time Time Spent: 30 to 50 Minutes Medications reviewed and adjusted accordingly: Yes
[2017-04-30] MEDS: MAGNESIUM SULFATE 1 GM/D5W 100 ML IV SCH ×2 (00:35→01:48)
[2017-04-30 05:49] LABS: ABSOLUTE BASOPHILS # (AUTO) 0.1 10^3/uL (0.0-0.2); ABSOLUTE EOSINOPHILS # (AUTO) 0.1 10^3/uL (0.0-0.6); ABSOLUTE LYMPHOCYTES (AUTO) 1.2 10^3/uL (0.5-4.7); ABSOLUTE MONOCYTES (AUTO) 0.6 10^3/uL (0.1-1.4); ABSOLUTE NEUT (AUTO) 6.5 10^3/uL (1.7-8.2); BASOPHILS % (AUTO) 1.3 % (0-2); EOSINOPHILS % (AUTO) 0.7 % (0-6); HEMOGLOBIN 12.9 g/dL (13.5-17.0); HGB HCT DIFFERENCE -3.3; LYMPHOCYTES % (AUTO) 13.8 % (13-45); MEAN CORPUSCULAR HEMOGLOBIN 23.6 pg (27.0-33.4); MEAN CORPUSCULAR HGB CONC 30.8 g/dL (32.0-36.0); MEAN CORPUSCULAR VOLUME 77 fl (80-97); MONOCYTES % (AUTO) 7.4 % (3-13); RED BLOOD COUNT 5.48 10^6/uL (4.35-5.55); RED CELL DISTRIBUTION WIDTH 20.2 % (11.5-14.0); SEGMENTED NEUTROPHILS % (AUTO) 76.8 % (42-78); WHITE BLOOD COUNT 8.4 10^3/uL (4.0-10.5)
[2017-04-30] MEDS ORDERED: LANSOPRAZOLE 30 MG TAB.RAP.DR PO SCH ×2 (06:00→10:00)
[2017-04-30 06:07] LABS: ALANINE AMINOTRANSFERASE 128 U/L (21-72); ALBUMIN 3.5 g/dL (3.5-5.0); ALKALINE PHOSPHATASE 233 U/L (38-126); ANION GAP 13 (5-19); ASPARTATE AMINO TRANSFERASE 60 U/L (17-59); BILIRUBIN,DIRECT 0.8 mg/dL (0.0-0.4); BILIRUBIN,TOTAL 1.8 mg/dL (0.2-1.3); BLOOD UREA NITROGEN 34 mg/dL (7-20); CALCIUM 9.7 mg/dL (8.4-10.2); CARBON DIOXIDE 21 mmol/L (22-30); CHLORIDE 108 mmol/L (98-107); CREATININE RESULT 1.46 mg/dL (0.52-1.25); GLUCOSE 145 mg/dL (75-110); MAGNESIUM 2.5 mg/dL (1.6-2.3); POTASSIUM 3.7 mmol/L (3.6-5.0); SODIUM 142.4 mmol/L (137-145); TOTAL PROTEIN 6.1 g/dL (6.3-8.2)
[2017-04-30 06:45] LABS: THYROID STIMULATING HORMONE 0.96 uIU/mL (0.47-4.68)
[2017-04-30] MEDS: APIXABAN 5 MG TABLET PO SCH (09:58)
[2017-04-30] MEDS ORDERED: FUROSEMIDE 20 MG TABLET PO SCH (10:00)
[2017-04-30] MEDS ORDERED: IRON POLYSACCHARIDES COMPLEX 150 MG CAPSULE PO SCH (10:00)
[2017-04-30] MEDS ORDERED: CHOLECALCIFEROL (D3) 1,000 UNIT TABLET PO SCH (10:00)
[2017-04-30] MEDS ORDERED: DOCUSATE SODIUM 100 MG CAPSULE PO SCH (10:00)
[2017-04-30] MEDS ORDERED: LISINOPRIL 5 MG TABLET PO SCH (10:00)
[2017-04-30] MEDS ORDERED: CYANOCOBALAMIN (VITAMIN B-12) 1,000 MCG TABLET PO SCH (10:00)
[2017-04-30] MEDS: METOPROLOL SUCCINATE 25 MG TAB.SR.24H PO SCH (10:01)
[2017-04-30] MEDS: MIDODRINE HCL 5 MG TABLET PO SCH ×2 (10:02→13:08)
[2017-04-30 11:56] VITALS: BP 118/82
--- NOTE | 2017-04-30 12:48 | PDOC DISCHARGE SUMMARY ---
General - Admit/Disc Date/PCP Admission Date/Primary Care Provider: 04/29/17 13:41 RUFINA LOWRY MD Discharge Date: 04/30/17 - Additional Information Resuscitation Status: Full Code Home Medications: Apixaban [Eliquis 5 mg Tablet] 5 mg PO Q12 04/29/17 Atorvastatin Calcium [Lipitor 40 mg Tablet] 40 mg PO QHS 04/29/17 Baclofen [Baclofen 20 Mg Tablet] 20 mg PO TIDP PRN 04/29/17 Cholecalciferol (Vitamin D3) [Vitamin D3 1000 Unit Tablet] 1,000 unit PO BID Colchicine [Colchicine 0.6 mg Tablet] 0.6 mg PO BIDP PRN 04/29/17 Cyanocobalamin (Vitamin B-12) [Vitamin B-12] 1,000 mcg PO DAILY 04/29/17 Doxycycline Hyclate [Vibramycin 100 mg Tablet] 100 mg PO BID 04/29/17 Furosemide [Lasix 20 mg Tablet] 20 mg PO DAILY 04/29/17 Glimepiride [Amaryl 4 mg Tablet] 4 mg PO DAILY 04/29/17 Iron Ps Cmplx/Vit B12/FA [Ferrex 150 Forte Capsule] 1 each PO DAILY 04/29/17 Linagliptin [Tradjenta] 5 mg PO DAILY 04/29/17 Lisinopril [Prinivil 2.5 mg Tablet] 2.5 mg PO DAILY 04/29/17 Metoprolol Succinate [Toprol Xl 25 mg Tab.sr] 12.5 mg PO Q12 04/29/17 Midodrine HCl [Proamatine 5 Mg Tablet] 5 mg PO TID 04/29/17 Nitroglycerin [Nitrostat 0.4 mg (1/150 Gr) Tabs 25/Bottle] 1 tab SL Q5MP PRN Pantoprazole Sodium [Protonix] 40 mg PO DAILY 04/29/17 Tramadol HCl [Ultram 50 mg Tablet] 50 mg PO TIDP PRN 04/29/17 History of Present Illness History of Present Illness: BAM MORRISON is a 66 year old male -Armenian male who presents to our hospital after being found down at 7:30 in the morning by . reports that patient was last seen normal at 9:30 PM. states that patient was not wearing his LifeVest the night before and when she found him this morning he was not wearing his LifeVest. states that he was confused and had difficulty answering questions. Patient has an extensive past medical history with severe cardiomyopathy EF of 15%. On prior admissions patient has been encouraged to use his LifeVest however patient has not been consistently wearing his LifeVest. Patient was recently admitted to the hospital for acute on chronic respiratory failure with hypoxia and was diagnosed with bilateral lung pneumonia. was unable to provide additional history. Emergency room called requesting admission to the hospital due to concern for TIA however discussed with emergency room staff that this most likely is not a TIA but anoxic brain injury related to cardiac arrhythmia. Physical Exam Vital Signs: Temp Pulse Resp BP Pulse Ox 97.5 F 83 16 118/82 96 04/30/17 11:34 04/30/17 12:00 04/30/17 12:00 04/30/17 12:00 04/30/17 12:00 Intake & Output 04/29/17 04/30/17 05/01/17 06:59 06:59 06:59 Intake Total 465 Output Total 650 Balance -185 Weight 103.1 kg Results Laboratory Results: 04/30/17 05:26 04/30/17 05:26 04/30/17 04/30/17 04/30/17 05:26 05:26 05:26 WBC 8.4 RBC 5.48 Hgb 12.9 L Hct 42.0 MCV 77 L MCH 23.6 L MCHC 30.8 L RDW 20.2 H Plt Count 223 Seg Neutrophils % 76.8 Lymphocytes % 13.8 Monocytes % 7.4 Eosinophils % 0.7 Basophils % 1.3 Absolute Neutrophils 6.5 Absolute Lymphocytes 1.2 Absolute Monocytes 0.6 Absolute Eosinophils 0.1 Absolute Basophils 0.1 Sodium 142.4 Potassium 3.7 Chloride 108 H Carbon Dioxide 21 L Anion Gap 13 BUN 34 H Creatinine 1.46 H Est GFR ( Amer) 58 L Est GFR (Non-Af Amer) 48 L Glucose 145 H Calcium 9.7 Magnesium 2.5 H Total Bilirubin 1.8 H AST 60 H ALT 128 H Alkaline Phosphatase 233 H Total Protein 6.1 L Albumin 3.5 TSH 0.96 Free T4 1.60 04/29/17 04/30/17 19:30 01:29 Troponin I 0.019 0.021 Impressions: Head MRI 04/29/17 00:00 IMPRESSION: Negative for acute or sub-acute infarction. EVIDENCE OF ACUTE STROKE: NO. Chest X-Ray 04/29/17 08:31 IMPRESSION: Stable mild moderate cardiomegaly. No acute infiltrates. Head CT 04/29/17 08:32 IMPRESSION: No acute findings. Stable left parieto-occipital arachnoid cyst compared to CT dating back to 2011
--- NOTE | 2017-04-30 14:18 | TRANSFER SUMMARY E ---
Transfer Summary NAME: BAM MORRISON : 1950 AGE: 66Y ADMITTED: 04/29/2017 TRANSFERRED: 04/30/2017 FINAL DIAGNOSES: 1. Acute metabolic encephalopathy. 2. Cardiac arrhythmia. 3. Syncope. 4. Congestive heart failure. 5. Anemia of chronic disease. 6. Dyslipidemia. 7. Hypertension. 8. Elevated LFTs. 9. CKD stage 3. 10. Type 2 diabetes. 11. Paroxysmal atrial fibrillation. CONSULTANTS: Dr. Mckeon, Cardiology. PROCEDURE DONE ON DAY OF ADMISSION: MRI of the brain on 04/29/2017 showed negative for acute or subacute infarction, no evidence of acute stroke. Chest x-ray on 04/29/2017 showed stable [id number] cardiomegaly, no acute infiltrates. CT of head on 04/29/2017 showed no acute finding, stable left parietal occipital arachnoid cyst compared to CT dating back on 12/17/2011. Electrocardiogram read by Dr. Mckeon: Abnormal ECG, sinus rhythm, probable left atrial abnormality, left anterior fascicular block, abnormal progression, consider AF, HI or lead placement, borderline T-wave abnormalities, borderline prolonged Q-T interval. HISTORY AND PHYSICAL: Dictated by Dr. Sal Dewitt. HISTORY OF PRESENT ILLNESS: The patient is a 66-year-old male, , who presents to [facility] after being found down at 7:30 in the morning by . reports that the patient was last seen at 9:30 p.m. states that the patient was not wearing his LifeVest the night before and when she found him in the morning of 04/29/2017 he was not wearing his LifeVest. states that he was confused and had difficulty answering questions. Patient has an extensive past medical history with severe cardiomyopathy, EF of 15%. On prior admission the patient has been encouraged to use his LifeVest; however, the patient has not been consistently wearing his LifeVest. The patient was recently admitted to the hospital for acute on chronic respiratory failure with hypoxia and was diagnosed with bilateral pneumonia. was unable to provide additional history. Patient was admitted for further evaluation for a possible TIA. This patient's presentation is thought to most likely be due to arrhythmia resulting in syncope and altered mentation. PAST MEDICAL HISTORY: 1. Atrial fibrillation, paroxysmal. 2. Congestive heart failure with an EF of approximately 20%. 3. Coronary artery disease. 4. Myocardial infarction in December of 2016. 5. Hyperlipidemia. 6. Hypertension. 7. COPD. Patient wears 2 L of oxygen as needed. 8. Sleep apnea. CPAP pressure of 10. 9. Type 2 diabetes. 10. GERD. 11. Patient has gout. 12. Patient has anemia, followed by Dr. Ordonez. Patient had recent GI workup. PAST SURGICAL HISTORY: Right rotator cuff. SOCIAL HISTORY: Patient is . Never smoked. No alcohol abuse. No drug use. FAMILY HISTORY: Diabetes and hypertension. ALLERGIES: PHENERGAN, dystonia. CURRENT MEDICATIONS: Please refer to transfer medication list at the end of the summary. HOSPITAL COURSE: 1. Acute metabolic encephalopathy: There was suspicion for anoxic brain injury secondary to cardiac arrhythmia as patient does have severe cardiomyopathy with a depressed EF of 15% and patient is noncompliant with his LifeVest. Patient's mentation is improved today. His neurological workup was negative for stroke on MRI and CT head. Patient EEG was ordered; however, not completed. Patient did have a carotid Doppler done on previous admission which was negative for any kind of stenosis. Neurology was consulted; however, patient has not been evaluated. However, patient has no deficits on examination. Patient is tolerating regular or normal consistency of food, currently on cardiac diet, carb-consistent diet. 2. Cardiac arrhythmia: Patient does have a depressed EF of 15%. Cardiology did evaluate the patient and recommended transfer to a tertiary center to have further evaluation by basic combatant swimmer and placement of BiV AICD as the patient is noncompliant with his LifeVest. Please note that patient had an echo done recently that showed an EF of 15%. 3. Congestive heart failure: Patient, as stated before, has a depressed EF of 15%. Patient appears euvolemic. Patient is currently on lisinopril 2.5 mg daily, metoprolol 12.5 mg twice a day, and Lasix 20 mg tablet daily. 4. Anemia of chronic disease: Patient's hemoglobin is currently stable at 12.9. Patient is followed up by a motorcycle engine assembler outside in this regard. Patient's anemia is most likely related to his CKD stage 3. Patient is on iron supplement. 5. Dyslipidemia: Patient is continued on his statin. Patient is on atorvastatin 40 mg at night. 6. Hypotension: Patient's blood pressures have been stable, most recent blood pressure 118/82. Patient is on midodrine 5 mg p.o. t.i.d. Although patient does have essential hypertension, there is a possible component of orthostatic hypotension most likely related to his blood pressure medications which are necessary for his severe cardiomyopathy. 7. Elevated LFTs: Patient's LFTs are elevated with AST of 60 and ALT of 128. This could possibly be related to hepatic congestion due to his CHF; however, patient's liver enzymes were elevated on his previous admission. 8. CKD stage 3: On admission patient's creatinine was 1.71 and is now down to 1.46. 9. Patient has a history of type 2 diabetes: He is currently on sliding-scale insulin. Blood glucose is 138. A1c was not checked on this admission. 10. Paroxysmal atrial fibrillation: Patient is on Eliquis and on metoprolol 12.5 mg b.i.d. Patient's pulse is in the 80s and appears to be in sinus rhythm. PHYSICAL EXAMINATION: VITAL SIGNS: Temperature 97.5, pulse rate 83, blood pressure 118/82, respirations 16, satting 96% on room air. GENERAL: Patient is sitting up in bed in no acute distress. HEENT: Normocephalic, atraumatic. Extraocular movements intact. NECK: Supple. No carotid bruits. CHEST: Anterior chest is clear. Patient does have LifeVest in place. HEART: S1 and S2 heard. No murmurs, rubs or gallops. ABDOMEN: Soft, nontender, and nondistended. Bowel sounds heard. EXTREMITIES: No deformity or pedal edema. LABORATORY STUDIES: Most recent labs are a sodium of 142.4, potassium 3.7, chloride 108, carbon dioxide 21, anion gap 13, BUN 34, creatinine 1.46, glucose 141, calcium 9.7, magnesium 2.5, total bili 1.8, direct bili 0.8, AST 60, ALT 128, alk phos 233, total protein 6.1, albumin 3.5. TSH 0.96, T4 1.60. CBC has a white count of 8.4, hemoglobin 12.9, hematocrit 42, MCV 77, platelets 223. PT 13.8, INR 0.99, aPTT 28.6. UA was negative. UDS was negative. TRANSFER INSTRUCTIONS: Patient is being transferred to [facility] under the care of Matty Quezada, EP anthropology and archeology instructor, for further evaluation of the patient's dilated cardiomyopathy and arrhythmia resulting in possible syncopal episode. TRANSFER MEDICATIONS: 1. Midodrine 5 mg tablet t.i.d. 2. Acetaminophen 325 mg every 4 hours p.r.n. for pain or temperature. 3. Lisinopril 2.5 mg tablet daily. 4. Eliquis 5 mg every 12 hours. 5. Metoprolol succinate 12.5 mg every 12 hours. 6. Atorvastatin 40 mg at bedtime. 7. Lasix 20 mg tablet daily. 8. Polysaccharide iron complex 150 mg tablet daily. 9. Nitroglycerin 1 tab sublingual every 5 minutes p.r.n. chest pain. 10. Lansoprazole 30 mg every morning. 11. Vitamin B12 1000 mcg p.o. daily. 12. Vitamin D3 1000 unit tablet p.o. b.i.d. This transfer summary took 35 minutes to complete. DICTATING PHYSICIAN: FEDERICO LOMELI M.D. [id number] PHY#: [id number] ID: [id number] JOB#: [id number] ACCT: [id number] cc:FEDERICO LOMELI M.D. > MTDObie
--- NOTE | 2017-04-30 20:33 | PDOC PROGRESS REPORT ---
Subjective Progress Note for:: 04/30/17 Subjective:: Patient admitted with probable syncopal spell yesterday. Subsequent brain MRI and CT were negative. Pt is denying any chest arm or neck discomfort. Patient denying any PND, orthopnea. Patient denied any sustained palpitations, dizziness, syncope, near syncope. Patient denying any fever chills. Patient denying any other significant discomfort. Patient is maintaining sinus rhythm. Patient claims that he has not seen any electrophysiological doctor. Review of systems: Rest review of systems negative. Medications: Medications have been reviewed. Physical Exam Vital Signs: Temp Pulse Resp BP Pulse Ox 97.5 F 83 16 118/82 96 04/30/17 11:34 04/30/17 12:00 04/30/17 12:00 04/30/17 12:00 04/30/17 12:00 Intake & Output 04/29/17 04/30/17 05/01/17 06:59 06:59 06:59 Intake Total 465 Output Total 650 Balance -185 Weight 103.1 kg Exam: GENERAL: well-nourished and in no acute distress. Alert and oriented x3 HEAD: Atraumatic, normocephalic. EYES: Pupils equal round and reactive to light, extraocular movements intact, sclera anicteric, conjunctiva are normal. ENT: TMs normal, nares patent, oropharynx clear without exudates. Moist mucous membranes. No oral ulcerations or bleeding gums noted NECK: supple without lymphadenopathy. Trachea is central. No cervical or axillary lymphadenopathy noted. Carotids are 2+, JVD 10-12 cm LUNGS: Respiration seems nonlabored, no significant accessory muscle action noted. Breath sounds clear to auscultation bilaterally and equal noted. No wheezes rales or rhonchi noted. No significant dullness noted on percussion. CHEST: Palpation of the chest wall shows no significant chest wall tenderness. No other significant abnormalities noted. 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 ABDOMEN: Soft, no significant tenderness appreciated, normoactive bowel sounds. No guarding, no rebound. No rigidity noted . No masses appreciated. EXTREMITIES: Pedal pulses are 1-2+, no calf tenderness noted. No clubbing or cyanosis.1+ pedal edema noted NEUROLOGICAL: Focused neurological exam showed no significant neurologic deficit. Normal speech, no focal weakness appreciated. PSYCH: Normal mood, normal affect. Judgment and insight within normal limits. SKIN: No significant ecchymosis, rash, ulcerations or signs of pruritus noted. MUSCULOSKELETAL EXAM: No significant joint swelling noted. Results Laboratory Results: 04/30/17 05:26 04/30/17 05:26 04/30/17 04/30/17 04/30/17 05:26 05:26 05:26 WBC 8.4 RBC 5.48 Hgb 12.9 L Hct 42.0 MCV 77 L MCH 23.6 L MCHC 30.8 L RDW 20.2 H Plt Count 223 Seg Neutrophils % 76.8 Lymphocytes % 13.8 Monocytes % 7.4 Eosinophils % 0.7 Basophils % 1.3 Absolute Neutrophils 6.5 Absolute Lymphocytes 1.2 Absolute Monocytes 0.6 Absolute Eosinophils 0.1 Absolute Basophils 0.1 Sodium 142.4 Potassium 3.7 Chloride 108 H Carbon Dioxide 21 L Anion Gap 13 BUN 34 H Creatinine 1.46 H Est GFR ( Amer) 58 L Est GFR (Non-Af Amer) 48 L Glucose 145 H Calcium 9.7 Magnesium 2.5 H Total Bilirubin 1.8 H AST 60 H ALT 128 H Alkaline Phosphatase 233 H Total Protein 6.1 L Albumin 3.5 TSH 0.96 Free T4 1.60 04/29/17 04/30/17 19:30 01:29 Troponin I 0.019 0.021 EKG Comments: Shows sinus rhythm, no acute ST-T wave changes noted Impressions: Head MRI 04/29/17 00:00 IMPRESSION: Negative for acute or sub-acute infarction. EVIDENCE OF ACUTE STROKE: NO. Chest X-Ray 04/29/17 08:31 IMPRESSION: Stable mild moderate cardiomegaly. No acute infiltrates. Head CT 04/29/17 08:32 IMPRESSION: No acute findings. Stable left parieto-occipital arachnoid cyst compared to CT dating back to 2011 Assessment & Plan - Diagnosis (1) Altered mental status, unspecified Qualifiers: Altered mental status type: disorientation Qualified Code(s): R41.0 - Disorientation, unspecified (2) CHF (congestive heart failure) Qualifiers: Congestive heart failure type: systolic Congestive heart failure chronicity : chronic Qualified Code(s): I50.22 - Chronic systolic (congestive) heart failure Is this a current diagnosis for this admission?: No (3) Cardiomyopathy Qualifiers: Cardiomyopathy type: unspecified Qualified Code(s): I42.9 - Cardiomyopathy , unspecified Is this a current diagnosis for this admission?: Yes (4) Chronic kidney disease (CKD) Qualifiers: Chronic kidney disease stage: stage 3 (moderate) Qualified Code(s): N18.3 - Chronic kidney disease, stage 3 (moderate) Is this a current diagnosis for this admission?: Yes (5) Diabetes type 2, controlled Qualifiers: Diabetes mellitus complication status: with unspecified complications 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 Patient still has some residual CHF. Patient has severely depressed LVEF. It is felt that the best option would be to get him the implantable defibrillator sooner than later. Had a long discussion with the patient today. Discussed that it may be worthwhile to just go ahead and refer patient for defibrillator placement. In this regard multiple calls were placed and finally was able to get Dr. Matty Quezada to accept patient for defibrillator placement. Complete history was given to him. Rationale for defibrillator placement discussed with the patient. Risk benefits of defibrillator therapy discussed. Discussed that he would need to be compliant with medications and compliant with CPAP therapy. Total time arranging for transfer etc., took about 40 minutes. - Time Time with patient: Greater than 35 minutes - CODE STATUS was discussed, patient remains full code. Surrogate decision-maker unchanged. Multiple medical problems were addressed. More than 50% of the time spent coordinating care, discussing management plans with involved caregivers. Management plans discussed with involved personnels. Medical decision making was of moderate to high complexity, patient's has multiple comorbidities. Medications reviewed and adjusted accordingly: Yes
--- NOTE | 2017-04-30 21:29 | EKG REPORT ---
SEVERITY:- ABNORMAL ECG - SINUS RHYTHM VENTRICULAR PREMATURE COMPLEX PROBABLE LEFT ATRIAL ABNORMALITY LAD, CONSIDER LAFB OR INFERIOR INFARCT ABNRM R PROG, CONSIDER ASMI OR LEAD PLACEMENT NONSPECIFIC T ABNORMALITIES, LATERAL LEADS BORDERLINE PROLONGED QT INTERVAL : Confirmed by: Dionicio Mckeon 30-Apr-2017 21:29:05
--- NOTE | 2017-05-01 09:12 | EEG PRO FEE REPORT ---
EEG INTERPRETATION PATIENT NAME: BAM MORRISON ROOM#: [id number] ORDER#: [id number] DATE OF STUDY: 04/29/2017 : 1950 REFERRING MD: WILMAR JOHNSON M.D. DIAGNOSIS: Suspect anoxic brain injury REPORT The background activity for most of the tracing is obscured by a large amount of motion artifact. At the end of the tracing while the patient appears to be asleep the record attenuates down to 5 Hz theta for the most part of low voltage. Some vertex P-waves are seen during this time but no definite epileptiform activity or amplitude asymmetry, or other focal slowing is noted. Again this appears to be mostly during drowsiness. IMPRESSION I would say that this is a normal EEG with excess motion artifact and normal drowsy EEG with excess motion artifact. INTERPRETING PHYSICIAN: EDIE GIANG M.D. /: MTEFFT TT: [id number] ID: [id number] /: [id number] TD: [id number] JOB: [id number] cc:Nolberto HICKEY M.D. ANTON CLEMMONS, M.D. >
--- NOTE | 2017-05-01 10:52 | TRANSFER SUMMARY E ---
Transfer Summary NAME: BAM MORRISON : 1950 AGE: 66Y ADMITTED: 04/29/2017 TRANSFERRED: 04/30/2017 ADDENDUM: The patient's troponin was 0.019 and 0.021. Patient did not complain of any chest pain or any other cardiac symptoms. DICTATING PHYSICIAN: FEDERICO LOMELI M.D. [id number] PHY#: [id number] ID: [id number] JOB#: [id number] ACCT: [id number] cc:FEDERICO LOMELI M.D. > MTDD
== END 2017-04-30 13:33 | disposition short-term general hospital (02) | DRG 308 ==
LOC: ER 08:02 → UNDOADMIN 13:33 → EH 13:33 → 3S 16:38
PROVIDERS: ADMIT Family Medicine; ATTEND Family Medicine
DX: I48.0 Paroxysmal atrial fibrillation (principal); G93.41 Metabolic encephalopathy; G93.1 Anoxic brain damage, not elsewhere classified; I50.22 Chronic systolic (congestive) heart failure; I13.0 Hypertensive heart and chronic kidney disease with heart failure and stage 1 through stage 4 chronic kidney disease, or unspecified chronic kidney disease; J44.1 Chronic obstructive pulmonary disease with (acute) exacerbation; I42.9 Cardiomyopathy, unspecified; E11.22 Type 2 diabetes mellitus with diabetic chronic kidney disease; G47.33 Obstructive sleep apnea (adult) (pediatric); E78.5 Hyperlipidemia, unspecified; N18.3 Chronic kidney disease, stage 3 (moderate); D63.1 Anemia in chronic kidney disease; K21.9 Gastro-esophageal reflux disease without esophagitis; M10.9 Gout, unspecified; I25.2 Old myocardial infarction; I25.10 Atherosclerotic heart disease of native coronary artery without angina pectoris; Z79.02 Long term (current) use of antithrombotics/antiplatelets; Z91.19 Patient's noncompliance with other medical treatment and regimen; M19.90 Unspecified osteoarthritis, unspecified site; Z99.81 Dependence on supplemental oxygen; Z86.14 Personal history of Methicillin resistant Staphylococcus aureus infection; Z83.3 Family history of diabetes mellitus; Z82.49 Family history of ischemic heart disease and other diseases of the circulatory system
CPT/HCPCS: 36415; 70450; 70551; 71010; 80053; 80307; 81001; 82550; 82553; 82962; 83735; 83880; 84439; 84443; 84484; 85025; 85610; 85730; 87040; 93005; 93010; 95819; 99285; G8978-GP; G8979-GP; G8987-GO; G8988-GO; G8989-GO; J1815; J3475; J3480

== ENCOUNTER → 2017-05-28 | Outpatient (CLI) | payer MEDICARE, OTHER ==
[2017-05-28 10:39] LABS: ANION GAP 14 (5-19); BLOOD UREA NITROGEN 44 mg/dL (7-20); CALCIUM 10.8 mg/dL (8.4-10.2); CARBON DIOXIDE 28 mmol/L (22-30); CHLORIDE 99 mmol/L (98-107); CREATININE RESULT 1.99 mg/dL (0.52-1.25); GLUCOSE 150 mg/dL (75-110); POTASSIUM 4.4 mmol/L (3.6-5.0); SODIUM 140.8 mmol/L (137-145)
== END ==
LOC: OD 09:29
PROVIDERS: ATTEND Internal Medicine Nephrology
DX: N18.3 Chronic kidney disease, stage 3 (moderate) (principal)
CPT/HCPCS: 36415; 80048

== ENCOUNTER → 2017-06-04 | Outpatient (CLI) | payer MEDICARE, OTHER ==
[2017-06-04 15:43] LABS: ANION GAP 13 (5-19); BLOOD UREA NITROGEN 44 mg/dL (7-20); CALCIUM 10.3 mg/dL (8.4-10.2); CARBON DIOXIDE 28 mmol/L (22-30); CHLORIDE 100 mmol/L (98-107); CREATININE RESULT 1.93 mg/dL (0.52-1.25); GLUCOSE 179 mg/dL (75-110); POTASSIUM 4.5 mmol/L (3.6-5.0); SODIUM 140.6 mmol/L (137-145)
== END ==
LOC: OD 13:47
PROVIDERS: ATTEND Nurse Practitioner Family
DX: Z51.81 Encounter for therapeutic drug level monitoring (principal); Z79.899 Other long term (current) drug therapy
CPT/HCPCS: 36415; 80048

== ENCOUNTER 2017-06-07 07:09 | Emergency (ER) | payer MEDICARE, OTHER ==
[2017-06-07] MEDS ORDERED: ASPIRIN 81 MG TABLET, CHEWABLE PO ONE (07:18)
[2017-06-07] MEDS ORDERED: MIDAZOLAM 2 MG/2 ML INJ ONE (07:26)
--- NOTE | 2017-06-07 07:32 | ER Document Report ---
ED General - General Chief Complaint: Arrhythmia Stated Complaint: WEAKNESS Time Seen by Provider: 06/07/17 07:13 Mode of Arrival: Ambulatory Information source: Patient Notes: 66-year-old male history of [place] A. fib who wears a life vest presents with complaints of low blood pressure. Patient notes he has been feeling weak and his LifeVest has been alarming. Patient notes he keeps turning off the LifeVest before it can shock him. TRAVEL OUTSIDE OF THE [place] IN LAST 30 DAYS: No - HPI Onset: Just prior to arrival Onset/Duration: Sudden Quality of pain: No pain Severity: Severe Pain Level: Denies Associated symptoms: Weakness Exacerbated by: Denies Relieved by: Denies Similar symptoms previously: Yes Recently seen / treated by doctor: Yes - Related Data Allergies/Adverse Reactions: promethazine [From Phenergan] Adverse Reaction (Intermediate, Verified 06/07/17 07:53) Dystonia Home Medications: Current Home Medications Baclofen [Baclofen 20 Mg Tablet] 20 mg PO TID PRN 06/07/17 [History] Bumetanide [Bumex 1 mg Tablet] 1.5 mbq PO BID 06/07/17 [History] Carvedilol [Coreg 3.125 mg Tablet] 3.125 mg PO BID 06/07/17 [History] Cholecalciferol (Vitamin D3) [Vitamin D3] 1,000 unit PO DAILY 06/07/17 [History] Colchicine [Colcrys 0.6 mg Tablet] 1 tab PO BID PRN 06/07/17 [History] Glimepiride 2 mg PO DAILY PRN 06/07/17 [History] Iron Aspgly,Ps/C/B12/FA/Ca/Suc [Ferrex 150 Forte Plus Capsule] 1 each PO DAILY 06/07/17 [History] Isosorb Dinit/Hydralazine HCl [Bidil 20-37.5 mg Tablet] 1.5 tab PO TID 06/07/17 [History] Magnesium Oxide [Mag-Ox 400 mg Tablet] 400 mg PO DAILY 06/07/17 [History] Nitroglycerin [Nitrostat] 0.4 mg SL PRN PRN 06/07/17 [History] Pantoprazole Sodium [Protonix] 40 mg PO DAILY PRN 06/07/17 [History] Potassium Chloride [Klor-Con 10 Meq Tablet.sa] 20 meq PO DAILY 10/01/17 [History ] Spironolactone [Aldactone 25 mg Tablet] 12.5 mg PO DAILY 06/07/17 [History] Tizanidine HCl [Zanaflex] 4 mg PO TID PRN 06/07/17 [History] Past Medical History - Social History Smoking Status: Never Smoker Cigarette use (# per day): No Chew tobacco use (# tins/day): No Smoking Education Provided: No Family History: DM, Hypertension Patient has suicidal ideation: No Patient has homicidal ideation: No - Past Medical History Cardiac Medical History: Reports: Hx Atrial Fibrillation - Paroxysmal, Hx Congestive Heart Failure - Systolic; ejection fraction 2017 of approximately 20% ., Hx Coronary Artery Disease, Hx Heart Attack - [place] December 2016, Hx Hypercholesterolemia, Hx Hypertension Denies: Hx DVT, Hx Pulmonary Embolism Pulmonary Medical History: Reports: Hx Bronchitis, Hx COPD - Nightly and as needed 2 L oxygen per nasal cannula, Hx Sleep Apnea - Nasal CPAP; pressure 10 Denies: Hx Asthma Neurological Medical History: Denies: Hx Seizures Endocrine Medical History: Reports: Hx Diabetes Mellitus Type 2. Denies: Hx Diabetes Mellitus Type 1, Hx Hyperthyroidism, Hx Hypothyroidism Renal/ Medical History: Reports: Hx Renal Insufficiency. Denies: Hx Peritoneal Dialysis GI Medical History: Reports: Hx Gastroesophageal Reflux Disease, Hx Colonoscopy , Hx Endoscopy. Denies: Hx Cirrhosis Musculoskeltal Medical History: Reports Hx Arthritis, Reports Hx Gout - Primarily affecting left ankle and foot, Reports Hx Musculoskeletal Deformity - Back pain for 4-5 years Psychiatric Medical History: Denies: Hx Depression Infectious Medical History: Denies: Hx C-Diff, Hx MRSA Past Surgical History: Reports: Hx Orthopedic Surgery - right rotator cuff - Immunizations Hx Diphtheria, Pertussis, Tetanus Vaccination: Yes Hx Pneumococcal Vaccination: 11/05/13 Review of Systems - Review of Systems Notes: REVIEW OF SYSTEMS: CONSTITUTIONAL : Denies fever, chills, or sweats. Denies recent illness. EENT: Denies eye, ear, throat, or mouth pain or symptoms. Denies nasal or sinus congestion or discharge. Denies throat, tongue, or mouth swelling or difficulty swallowing. CARDIOVASCULAR: admits to heart racing, life vest warning RESPIRATORY: Denies cough, cold, or chest congestion. Denies shortness of breath, difficulty breathing, or wheezing. GASTROINTESTINAL: Denies abdominal pain or distention. Denies nausea, vomiting , or diarrhea. Denies blood in vomitus, stools, or per rectum. Denies black, tarry stools. Denies constipation. GENITOURINARY: Denies difficulty urinating, painful urination, burning, frequency, blood in urine, or discharge. MUSCULOSKELETAL: Denies back or neck pain or stiffness. Denies joint pain or swelling. SKIN: Denies rash, lesions or sores. HEMATOLOGIC : Denies easy bruising or bleeding. LYMPHATIC: Denies swollen, enlarged glands. NEUROLOGICAL: admits to weakness PSYCHIATRIC: Denies anxiety or stress. Denies depression, suicidal ideation, or homicidal ideation. ALL OTHER SYSTEMS REVIEWED AND NEGATIVE. Dictation was performed using [employer] voice recognition software PHYSICAL EXAMINATION: GENERAL: Well-appearing, well-nourished and in no acute distress. HEAD: Atraumatic, normocephalic. EYES: Pupils equal round and reactive to light, extraocular movements intact, sclera anicteric, conjunctiva are normal. ENT: Nares patent, oropharynx clear without exudates. Moist mucous membranes. NECK: Normal range of motion, supple without lymphadenopathy LUNGS: Breath sounds clear to auscultation bilaterally and equal. No wheezes rales or rhonchi. HEART: rapid heart rate, life vest warning ABDOMEN: Soft, nontender, nondistended abdomen. No guarding, no rebound. No masses appreciated. Musculoskeletal: Normal range of motion, no pitting or edema. No cyanosis. NEUROLOGICAL: Cranial nerves grossly intact. Normal speech, normal gait. Normal sensory, motor exams PSYCH: Normal mood, normal affect. SKIN: Warm, Dry, normal turgor, no rashes or lesions noted. Physical Exam - Vital signs Vitals: Pulse BP 52 L 69/43 L 06/07/17 07:13 06/07/17 07:13 Course - Re-evaluation Re-evalutation: 06/07/17 07:30 pt immediately cardiovertedsebastien paged 06/07/17 07:50 On arrival patient was noted to be hypotensive initial blood pressure was 60s over 40s, heart rate 160s, an EKG was medially performed, patient requests his LifeVest be taken off I explained to him the necessity of his LifeVest, he was given fluid bolus I contacted my supervisor tank cleaning who agrees with cardioversion, while waiting to give the Versed to cardiovert the patient's LifeVest began morning and appeared to be preparing to shock but then stopped and did not shock him, patient was given Versed and when he was drowsy I did cardiovert him with 120 J and rate went to 90s, bp improved to 108/87 Dr Rosa accepts patient for transfer , labs pending 06/07/17 07:54 06/07/17 08:21 Dr Linder has been in the room wit hthe patient, we discussed risks and benefits of amiodarone use, will defer os patient may have EP study in vidant pt continues to be stable medications include coreg, eliquis renal insufficiency noted 06/07/17 09:50 flight crew took patient with no concerns, pt happy alert and oriented - Vital Signs Vital signs: Temp Pulse Resp BP Pulse Ox 52 L 17 100/68 100 06/07/17 07:13 06/07/17 08:41 06/07/17 08:41 06/07/17 08:41 - Laboratory Result Diagrams: 06/07/17 07:20 06/07/17 07:20 Laboratory results interpreted by me: 06/07/17 06/07/17 07:20 07:20 RBC 5.63 H Hgb 12.9 L MCV 73 L MCH 23.0 L MCHC 31.4 L RDW 18.4 H Plt Count 110 L BUN 46 H Creatinine 2.10 H Est GFR ( Amer) 38 L Est GFR (Non-Af Amer) 32 L Glucose 214 H Calcium 10.3 H Direct Bilirubin 0.6 H Alkaline Phosphatase 134 H - EKG Interpretation by Me EKG shows normal: Sinus rhythm, Kelly, ST-T Waves Rate: Tachycardia Rhythm: SVT When compared to previous EKG there are: Changes noted - second ekg post cardioversion noted mild v5 depression Procedures - Additional Procedures Cardioversion/Defib Time performed: 07:28 - 120 j synchronized cardioversion Additional Procedures: Cardioversion/defib Critical Care Note - Critical Care Note Total time excluding time spent on procedures (mins): 82 Comments: 82 minutes of critical care time spent in direct contact evaluating and reevaluating the patient, treating symptoms, reviewing labs and studies and speaking with family and consultants excluding any procedures Discharge - Discharge Clinical Impression: Encounter for cardioversion procedure, SVT (supraventricular tachycardia) CHF (congestive heart failure) Qualifiers: Congestive heart failure type: unspecified congestive heart failure type Congestive heart failure chronicity: chronic Qualified Code(s): I50.9 - Heart failure, unspecified Hypotension Qualifiers: Hypotension type: unspecified hypotension type Qualified Code(s): I95.9 - Hypotension, unspecified Condition: Fair Disposition: [facility] Referrals: RUFINA LOWRY MD [Primary Care Provider] - Follow up as needed
[2017-06-07 07:40] LABS: ABSOLUTE BASOPHILS # (AUTO) 0.1 10^3/uL (0.0-0.2); ABSOLUTE EOSINOPHILS # (AUTO) 0.1 10^3/uL (0.0-0.6); ABSOLUTE LYMPHOCYTES (AUTO) 2.1 10^3/uL (0.5-4.7); ABSOLUTE MONOCYTES (AUTO) 0.5 10^3/uL (0.1-1.4); ABSOLUTE NEUT (AUTO) 2.4 10^3/uL (1.7-8.2); BASOPHILS % (AUTO) 1.1 % (0-2); EOSINOPHILS % (AUTO) 1.5 % (0-6); HEMATOCRIT 41.2 % (37.9-51.0); HEMOGLOBIN 12.9 g/dL (13.5-17.0); HGB HCT DIFFERENCE -2.5; LYMPHOCYTES % (AUTO) 40.8 % (13-45); MEAN CORPUSCULAR HGB CONC 31.4 g/dL (32.0-36.0); MEAN CORPUSCULAR VOLUME 73 fl (80-97); MONOCYTES % (AUTO) 9.9 % (3-13); RED BLOOD COUNT 5.63 10^6/uL (4.35-5.55); RED CELL DISTRIBUTION WIDTH 18.4 % (11.5-14.0); SEGMENTED NEUTROPHILS % (AUTO) 46.7 % (42-78); WHITE BLOOD COUNT 5.1 10^3/uL (4.0-10.5)
[2017-06-07 07:41] LABS: PROTHROMBIN TIME 13.8 SEC (11.4-15.4)
[2017-06-07] MEDS ORDERED: MIDAZOLAM 2 MG/2 ML INJ IV ONE (07:45)
[2017-06-07] MEDS ORDERED: NORMAL SALINE 1000 ML 1,000 ML IV PRN (07:45)
[2017-06-07 07:53] LABS: ALANINE AMINOTRANSFERASE 45 U/L (21-72); ALBUMIN 4.3 g/dL (3.5-5.0); ALKALINE PHOSPHATASE 134 U/L (38-126); ANION GAP 11 (5-19); ASPARTATE AMINO TRANSFERASE 55 U/L (17-59); BILIRUBIN,DIRECT 0.6 mg/dL (0.0-0.4); BLOOD UREA NITROGEN 46 mg/dL (7-20); CALCIUM 10.3 mg/dL (8.4-10.2); CARBON DIOXIDE 30 mmol/L (22-30); CHLORIDE 99 mmol/L (98-107); CREATINE KINASE 82 U/L (55-170); GLUCOSE 214 mg/dL (75-110); POTASSIUM 4.2 mmol/L (3.6-5.0); TOTAL PROTEIN 7.3 g/dL (6.3-8.2)
--- NOTE | 2017-06-07 07:55 | RADIOLOGY REPORT (SQ) ---
EXAM DESCRIPTION: CHEST SINGLE VIEW COMPLETED DATE/TIME: 06/07/2017 7:38 am REASON FOR STUDY: cp COMPARISON: Chest x-ray 04/29/2017. EXAM PARAMETERS: NUMBER OF VIEWS: One view. TECHNIQUE: Single frontal radiographic view of the chest acquired. RADIATION DOSE: NA LIMITATIONS: Superimposed radiopaque monitoring devices partially obscuring the chest. FINDINGS: LUNGS AND PLEURA: There are superimposed radiopaque monitoring devices partially obscuring the chest. There is a right-sided pacemaker pad. No obvious consolidation, sizable pleural effusio n or pneumothorax. MEDIASTINUM AND HILAR STRUCTURES: No obvious masses. Contour normal. HEART AND VASCULAR STRUCTURES: Heart upper normal limit in size. No overt vascular congestion. BONES: No acute findings. HARDWARE: None in the chest. IMPRESSION: No acute radiographic finding in the chest. TECHNICAL DOCUMENTATION: JOB ID: [id number]
[2017-06-07 08:05] LABS: CREATINE KINASE MB 1.43 ng/mL (<4.55); TROPONIN I 0.025 ng/mL
[2017-06-07 08:44] VITALS: BP 100/68
--- NOTE | 2017-06-07 13:03 | EKG REPORT ---
SEVERITY:- ABNORMAL ECG - SUPRAVENTRICULAR TACHYCARDIA LEFT ANTERIOR FASCICULAR BLOCK LATERAL INFARCT, AGE INDETERMINATE ABNRM R PROG, CONSIDER ASMI OR LEAD PLACEMENT : Confirmed by: Dionicio Mckeon 07-Jun-2017 13:03:20
--- NOTE | 2017-06-07 13:03 | EKG REPORT ---
SEVERITY:- ABNORMAL ECG - SINUS RHYTHM VENTRICULAR PREMATURE COMPLEX PROBABLE LEFT ATRIAL ABNORMALITY LEFT ANTERIOR FASCICULAR BLOCK ABNRM R PROG, CONSIDER ASMI OR LEAD PLACEMENT BORDERLINE T ABNORMALITIES, LATERAL LEADS PROLONGED QT INTERVAL : Confirmed by: Dionicio Mckeon 07-Jun-2017 13:02:59
== END 2017-06-07 08:55 | disposition short-term general hospital (02) ==
LOC: ER 07:09
PROC: 5A2204Z Restoration of Cardiac Rhythm, Single (ICD-10-PCS; principal; 2017-06-07)
DX: I47.1 Supraventricular tachycardia (principal); I50.9 Heart failure, unspecified; I95.9 Hypotension, unspecified; R53.1 Weakness; Z79.899 Other long term (current) drug therapy
CPT/HCPCS: 93005; 99291; 99292; 96374; 36415; 82553; 82550; 83735; 85025; 85610; 80053; 84484; 71010; 93010; 93799; J2250

== ENCOUNTER 2017-06-16 01:11 | Emergency (ER) | payer MEDICARE, OTHER ==
[2017-06-16] MEDS ORDERED: ASPIRIN 81 MG TABLET, CHEWABLE PO ONE (01:32)
--- NOTE | 2017-06-16 03:07 | ER Document Report ---
ED Medical Screen (RME) - General Chief Complaint: Weakness Stated Complaint: WEAKNESS Time Seen by Provider: 06/16/17 03:02 Notes: 66-year-old male with a LifeVest in place that comes emergency department for chief complaint of an episode just prior to arrival where he became extremely lightheaded and had to lie on the floor for a few minutes, he states that he still feels a little bit lightheaded. He was not shocked. He was here about 1 week ago, was cardioverted, was sent to [place], he had an ablation procedure on Thursday and was discharged on Thursday. He denies chest pain but he states he still feels lightheaded. TRAVEL OUTSIDE OF THE [place] IN LAST 30 DAYS: No - Related Data Allergies/Adverse Reactions: promethazine [From Phenergan] Adverse Reaction (Intermediate, Verified 06/16/17 01:28) Dystonia Past Medical History - Past Medical History Cardiac Medical History: Reports: Hx Atrial Fibrillation - Paroxysmal, Hx Congestive Heart Failure - Systolic; ejection fraction 2017 of approximately 20% ., Hx Coronary Artery Disease, Hx Heart Attack - [place] December 2016, Hx Hypercholesterolemia, Hx Hypertension Denies: Hx DVT, Hx Pulmonary Embolism Pulmonary Medical History: Reports: Hx Bronchitis, Hx COPD - Nightly and as needed 2 L oxygen per nasal cannula, Hx Sleep Apnea - Nasal CPAP; pressure 10 Denies: Hx Asthma Neurological Medical History: Denies: Hx Seizures Endocrine Medical History: Reports: Hx Diabetes Mellitus Type 2. Denies: Hx Diabetes Mellitus Type 1, Hx Hyperthyroidism, Hx Hypothyroidism Renal/ Medical History: Reports: Hx Renal Insufficiency. Denies: Hx Peritoneal Dialysis GI Medical History: Reports: Hx Gastroesophageal Reflux Disease, Hx Colonoscopy , Hx Endoscopy. Denies: Hx Cirrhosis Musculoskeltal Medical History: Reports Hx Arthritis, Reports Hx Gout - Primarily affecting left ankle and foot, Reports Hx Musculoskeletal Deformity - Back pain for 4-5 years Psychiatric Medical History: Denies: Hx Depression Infectious Medical History: Denies: Hx C-Diff, Hx MRSA Past Surgical History: Reports: Hx Orthopedic Surgery - right rotator cuff - Immunizations Hx Diphtheria, Pertussis, Tetanus Vaccination: Yes Physical Exam - Cardiovascular Rhythm: Regular. No: Tachycardia Heart sounds: Normal auscultation, S1 appreciated, S2 appreciated Course - Re-evaluation Re-evalutation: Patient upgraded to a level 2 because of suspected arrhythmia prior to arrival with concerning recent history and needing for being on a monitor with close supervision instead of in the waiting room.
[2017-06-16 03:28] LABS: ABSOLUTE BASOPHILS # (AUTO) 0.1 10^3/uL (0.0-0.2); ABSOLUTE LYMPHOCYTES (AUTO) 1.1 10^3/uL (0.5-4.7); ABSOLUTE MONOCYTES (AUTO) 0.4 10^3/uL (0.1-1.4); ABSOLUTE NEUT (AUTO) 5.1 10^3/uL (1.7-8.2); BASOPHILS % (AUTO) 1.5 % (0-2); EOSINOPHILS % (AUTO) 0.6 % (0-6); HEMATOCRIT 41.2 % (37.9-51.0); HEMOGLOBIN 12.9 g/dL (13.5-17.0); HGB HCT DIFFERENCE -2.5; LYMPHOCYTES % (AUTO) 16.6 % (13-45); MEAN CORPUSCULAR HEMOGLOBIN 22.9 pg (27.0-33.4); MEAN CORPUSCULAR HGB CONC 31.3 g/dL (32.0-36.0); MEAN CORPUSCULAR VOLUME 73 fl (80-97); MONOCYTES % (AUTO) 6.2 % (3-13); RED BLOOD COUNT 5.62 10^6/uL (4.35-5.55); RED CELL DISTRIBUTION WIDTH 18.7 % (11.5-14.0); SEGMENTED NEUTROPHILS % (AUTO) 75.1 % (42-78); WHITE BLOOD COUNT 6.8 10^3/uL (4.0-10.5)
[2017-06-16 03:39] LABS: ALANINE AMINOTRANSFERASE 58 U/L (21-72); ALBUMIN 4.7 g/dL (3.5-5.0); ALKALINE PHOSPHATASE 95 U/L (38-126); ANION GAP 15 (5-19); ASPARTATE AMINO TRANSFERASE 37 U/L (17-59); BILIRUBIN,DIRECT 0.5 mg/dL (0.0-0.4); BILIRUBIN,TOTAL 0.9 mg/dL (0.2-1.3); BLOOD UREA NITROGEN 44 mg/dL (7-20); CARBON DIOXIDE 30 mmol/L (22-30); CHLORIDE 105 mmol/L (98-107); CREATINE KINASE 72 U/L (55-170); CREATININE RESULT 1.89 mg/dL (0.52-1.25); GLUCOSE 231 mg/dL (75-110); POTASSIUM 4.9 mmol/L (3.6-5.0); SODIUM 149.7 mmol/L (137-145); TOTAL PROTEIN 7.6 g/dL (6.3-8.2)
[2017-06-16 03:50] LABS: CREATINE KINASE MB 2.31 ng/mL (<4.55)
[2017-06-16 03:52] LABS: TROPONIN I 0.081 ng/mL
--- NOTE | 2017-06-16 03:58 | ER Document Report ---
ED General - General Chief Complaint: Weakness Stated Complaint: WEAKNESS Time Seen by Provider: 06/16/17 03:02 Notes: 66-year-old male with history of end-stage cardiomyopathy currently wearing a LifeVest of cardiac arrest presents to the ED after an episode where he was sitting after using the restroom, got very dizzy lightheaded and sweaty and lay down on the floor. At this point which was about 1:05 AM, he states that his right arm began to drop and feel weak. He currently has no chest pain or palpitations nor did he during the event. His said he looked quite sweaty but did not lose consciousness. Currently denies any symptoms except for the right-sided weakness. He has been here before and was recommended to have an implantable defibrillator and transfer divided but he states that not scheduled "until next year." TRAVEL OUTSIDE OF THE [place] IN LAST 30 DAYS: No - Related Data Allergies/Adverse Reactions: promethazine [From Phenergan] Adverse Reaction (Intermediate, Verified 06/16/17 01:28) Dystonia Past Medical History - Social History Smoking Status: Never Smoker Family History: DM, Hypertension Patient has suicidal ideation: No Patient has homicidal ideation: No - Past Medical History Cardiac Medical History: Reports: Hx Atrial Fibrillation - Paroxysmal, Hx Congestive Heart Failure - Systolic; ejection fraction 2017 of approximately 20% ., Hx Coronary Artery Disease, Hx Heart Attack - [place] December 2016, Hx Hypercholesterolemia, Hx Hypertension Denies: Hx DVT, Hx Pulmonary Embolism Pulmonary Medical History: Reports: Hx Bronchitis, Hx COPD - Nightly and as needed 2 L oxygen per nasal cannula, Hx Sleep Apnea - Nasal CPAP; pressure 10 Denies: Hx Asthma Neurological Medical History: Denies: Hx Seizures Endocrine Medical History: Reports: Hx Diabetes Mellitus Type 2. Denies: Hx Diabetes Mellitus Type 1, Hx Hyperthyroidism, Hx Hypothyroidism Renal/ Medical History: Reports: Hx Renal Insufficiency. Denies: Hx Peritoneal Dialysis GI Medical History: Reports: Hx Gastroesophageal Reflux Disease, Hx Colonoscopy , Hx Endoscopy. Denies: Hx Cirrhosis Musculoskeltal Medical History: Reports Hx Arthritis, Reports Hx Gout - Primarily affecting left ankle and foot, Reports Hx Musculoskeletal Deformity - Back pain for 4-5 years Psychiatric Medical History: Denies: Hx Depression Infectious Medical History: Denies: Hx C-Diff, Hx MRSA Past Surgical History: Reports: Hx Orthopedic Surgery - right rotator cuff - Immunizations Hx Diphtheria, Pertussis, Tetanus Vaccination: Yes Hx Pneumococcal Vaccination: 11/05/13 Review of Systems - Review of Systems Notes: REVIEW OF SYSTEMS GEN: Denies fever, chills, weight loss ENT: Denies sore throat, nasal discharge, ear pain EYES: Denies blurry vision, eye pain, discharge CV: No chest pain palpitations or defibrillator discharge RESP: Denies cough, shortness of breath, wheezing GI: Denies abdominal pain, nausea, vomiting, diarrhea MSK: Denies joint pain/swelling, edema, SKIN: Denies rash, skin lesions LYMPH: Denies swollen glands/lymph nodes NEURO: Right arm weakness PSYCH: Denies depression, suicidal or homicidal ideation PHYSICAL EXAMINATION General: No acute distress, well-nourished Head: Atraumatic, normocephalic ENT: Mouth normal, oropharynx moist, no exudates or tonsillar enlargement Eyes: Conjunctiva normal, pupils equal, lids normal Neck: No JVD, supple, no guarding CVS: Normal rate, regular rhythm, pelvic murmur Resp: No resp distress, equal and normal breath sounds bilaterally GI: Nondistended, soft, no tenderness to palpation, no rebound or guarding Ext: No deformities, no edema, normal range of motion in upper and lower ext Back: No CVA or midline TTP Skin: No rash, warm Lymphatic: No lymphadeopathy noted Neuro: Awake, alert. Face symmetric. GCS 15. Radial nerves II through XII intact. 4 out of 5 right arm and leg strength compared to left. Normal sensation bilaterally. Physical Exam - Vital signs Vitals: Temp Pulse BP Pulse Ox 98.1 F 76 125/84 99 06/16/17 01:28 06/16/17 01:28 06/16/17 01:28 06/16/17 01:28 Course - Re-evaluation Re-evalutation: 06/16/17 04:04 Patient evaluated by me at approximately 3:55 AM. He has history of a LifeVest with cardiomyopathy but no history of stroke. He seems to have had a near syncopal episode. His ECG and vital signs here are normal as is his cardiac exam however he does have some noticeable weakness in the right upper and lower extremity. Informed charge nurse at 4:02 AM activated stroke protocol. The concern for arrhythmia versus orthostasis. Patient will need to be transferred. At this time I believe the priority will be to get a head CT to rule out bleeding, although I am not sure given his risk factors that he would be a candidate for lytics-update, patient takes Eliquis and is thus disqualified from thrombolytics.. Will research further while CT is being done. Spoke with Kristine at 4:00 AM to speak with cardiology for possible transfer for continuity of care. 06/16/17 04:08 06/16/17 05:44 Reassessed at about [address] is negative. Workup is negative. Despite this the patient remains high risk. 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 I spoke with Dr. Mandy Patel from the heart failure team Kristine who accepted the patient for transfer. Patient informed and family updated. - Vital Signs Vital signs: Temp Pulse Resp BP Pulse Ox 98.1 F 77 19 121/77 100 06/16/17 01:28 06/16/17 03:00 06/16/17 05:01 06/16/17 05:01 06/16/17 05:01 - Laboratory Result Diagrams: 06/16/17 03:05 06/16/17 03:05 Laboratory results interpreted by me: 06/16/17 06/16/17 03:05 03:05 RBC 5.62 H Hgb 12.9 L MCV 73 L MCH 22.9 L MCHC 31.3 L RDW 18.7 H Sodium 149.7 H BUN 44 H Creatinine 1.89 H Est GFR ( Amer) 43 L Est GFR (Non-Af Amer) 36 L Glucose 231 H Calcium 11.0 H Direct Bilirubin 0.5 H - EKG Interpretation by Me EKG shows normal: Sinus rhythm Rate: Normal Rhythm: NSR When compared to previous EKG there are: No significant change Critical Care Note - Critical Care Note Total time excluding time spent on procedures (mins): 35 Comments: The above patient is critically ill. Not including procedures, but including direct re-evaluations, speaking with patient and/or consultants, interpreting results, and documenting, I spent the total amount of minute listed listed above on critical care time Discharge - Discharge Clinical Impression: Syncope, near Syncope Qualifiers: Syncope type: unspecified Qualified Code(s): R55 - Syncope and collapse CHF (congestive heart failure) Qualifiers: Congestive heart failure type: combined Congestive heart failure chronicity: chronic Qualified Code(s): I50.42 - Chronic combined systolic (congestive) and diastolic (congestive) heart failure Condition: Fair Disposition: [facility] Referrals: NAVNEET ARNOLD MD [Primary Care Provider] - Follow up as needed
[2017-06-16 04:18] LABS: PARTIAL THROMBOPLASTIN TIME 27.5 SEC (23.5-35.8); PROTHROMBIN TIME 13.1 SEC (11.4-15.4)
--- NOTE | 2017-06-16 04:27 | RADIOLOGY REPORT (SQ) ---
EXAM DESCRIPTION: CHEST SINGLE VIEW COMPLETED DATE/TIME: 06/16/2017 3:24 am REASON FOR STUDY: weakness, previous [place] COMPARISON: 04/08/2017 EXAM PARAMETERS: NUMBER OF VIEWS: One view. TECHNIQUE: Single frontal radiographic view of the chest acquired. RADIATION DOSE: NA LIMITATIONS: Rotation. FINDINGS: LUNGS AND PLEURA: Minimal mixed interstitial and airspace opacities central, right more th an left. MEDIASTINUM AND HILAR STRUCTURES: No masses. Contour normal. HEART AND VASCULAR STRUCTURES: Heart normal in size. Normal vasculature. BONES: No acute findings. HARDWARE: Extensive electronic hardware overlies the lower chest and upper abdomen OTHER: No other significant finding. IMPRESSION: Mild central pulmonary edema pattern. Differential diagnosis includes atypical pneumoni tis. TECHNICAL DOCUMENTATION: JOB ID: [id number]
--- NOTE | 2017-06-16 05:17 | RADIOLOGY REPORT (SQ) ---
EXAM DESCRIPTION: CT HEAD WITHOUT COMPLETED DATE/TIME: 06/16/2017 4:57 am REASON FOR STUDY: L sided weakness COMPARISON: MR and CT, 04/29/2017. TECHNIQUE: Axial images acquired through the brain without intravenous contrast. Images reviewed wi th bone, brain and subdural windows. Images stored on PACS. All CT scanners at this facility use dose modulation, iterative reconstruction, and/or weight based d osing when appropriate to reduce radiation dose to as low as reasonably achievable (ALARA). [facility]: Dose Right [facility]: CareDose [facility]: Dose Right [facility]: Teradose 4D [facility]: Smart BioBeats RADIATION DOSE: Up-to-date CT equipment and radiation dose reduction techniques were employed. CTDIv ol: 64.6 mGy. DLP: 1292 mGy-cm. mGy. LIMITATIONS: None. FINDINGS: VENTRICLES: Normal size and contour. CEREBRUM: 7.5 cm left parieto-occipital arachnoid cyst pattern without suspicious interval change. N o suspicious masses. No hemorrhage. No midline shift. No evidence for acute infarction. Normal gra y/white matter differentiation. No areas of low density in the white matter. CEREBELLUM: No masses. No hemorrhage. No alteration of density. No evidence for acute infarction. EXTRAAXIAL SPACES: No fluid collections. No suspicious masses. Chronic 2.4 cm dense cerebral, falci ne calcification along the midline. Atherosclerosis. ORBITS AND GLOBE: No intra- or extraconal masses. Normal contour of globe without masses. CALVARIUM: No fracture. PARANASAL SINUSES: No fluid or mucosal thickening. SOFT TISSUES: No mass or hematoma. OTHER: No other significant finding. IMPRESSION: No acute findings. Chronic 7.5 cm arachnoid cyst. EVIDENCE OF ACUTE STROKE: NO. COMMENT: Quality ID # [id number]: Final reports with documentation of one or more dose reduction techniques (e.g., Automated exposure control, adjustment of the mA and/or kV according to patient size, use of iterative reconstruction technique) TECHNICAL DOCUMENTATION: JOB ID: [id number]- All Rights Reserved
--- NOTE | 2017-06-16 08:13 | EKG REPORT ---
SEVERITY:- ABNORMAL ECG - SINUS RHYTHM LEFT ATRIAL ABNORMALITY LEFT ANTERIOR FASCICULAR BLOCK CONSIDER ANTERIOR INFARCT BORDERLINE T ABNORMALITIES, LATERAL LEADS PROLONGED QT INTERVAL : Confirmed by: Alfie López MD 16-Jun-2017 08:12:38
[2017-06-16 14:35] VITALS: BP 105/68
--- NOTE | 2017-06-16 18:17 | EKG REPORT ---
SEVERITY:- ABNORMAL ECG - SINUS RHYTHM ATRIAL PREMATURE COMPLEX PROBABLE LEFT ATRIAL ABNORMALITY LEFT ANTERIOR FASCICULAR BLOCK ANTERIOR INFARCT, OLD : Confirmed by: Alfie López MD 16-Jun-2017 18:16:48
== END 2017-06-16 15:33 | disposition short-term general hospital (02) ==
LOC: ER 01:11
DX: R55 Syncope and collapse (principal); R53.1 Weakness; I50.42 Chronic combined systolic (congestive) and diastolic (congestive) heart failure; I48.91 Unspecified atrial fibrillation; I25.10 Atherosclerotic heart disease of native coronary artery without angina pectoris; I11.0 Hypertensive heart disease with heart failure; J44.9 Chronic obstructive pulmonary disease, unspecified; E11.9 Type 2 diabetes mellitus without complications; K21.9 Gastro-esophageal reflux disease without esophagitis; I25.2 Old myocardial infarction
CPT/HCPCS: 36415; 70450; 71010; 80053; 82550; 82553; 84484; 85025; 85610; 85730; 93005; 93010; 99291

== ENCOUNTER 2017-06-22 10:28 | Emergency (ER) | payer MEDICARE, OTHER ==
[2017-06-22 11:02] LABS: ABSOLUTE LYMPHOCYTES (AUTO) 1.8 10^3/uL (0.5-4.7); ABSOLUTE MONOCYTES (AUTO) 0.5 10^3/uL (0.1-1.4); ABSOLUTE NEUT (AUTO) 3.2 10^3/uL (1.7-8.2); BASOPHILS % (AUTO) 0.8 % (0-2); EOSINOPHILS % (AUTO) 0.7 % (0-6); HEMOGLOBIN 13.1 g/dL (13.5-17.0); HGB HCT DIFFERENCE -1.7; LYMPHOCYTES % (AUTO) 32.8 % (13-45); MEAN CORPUSCULAR HGB CONC 31.9 g/dL (32.0-36.0); MEAN CORPUSCULAR VOLUME 72 fl (80-97); MONOCYTES % (AUTO) 9.3 % (3-13); RED BLOOD COUNT 5.67 10^6/uL (4.35-5.55); RED CELL DISTRIBUTION WIDTH 18.6 % (11.5-14.0); SEGMENTED NEUTROPHILS % (AUTO) 56.4 % (42-78); WHITE BLOOD COUNT 5.6 10^3/uL (4.0-10.5)
--- NOTE | 2017-06-22 11:24 | ER Document Report ---
ED Syncope and Near Syncope - General Chief Complaint: Syncope Stated Complaint: SYNCOPE Time Seen by Provider: 06/22/17 11:03 Information source: Patient Notes: Very pleasant 66-year-old male presents emergency department after an episode of weakness earlier this morning at home. He denies fainting, no syncope. He does report feeling weak after having gone to the bathroom. With this weakness , he sat down on the stairs expecting to be taken to the hospital. His called 911. During this time, he denies any diaphoresis. He did not have any chest pain or palpitations. He denies any headache or focal neurologic weakness. Patient has a complicated cardiac history and is currently wearing a "LifeVest" to both monitor and to be able to externally defibrillate the patient. He reports the defibrillator did not discharge. The patient had similar episode last week. He was seen in the emergency department and then transferred to [facility]. He has seen his vegetable grower recently. The patient did not take his morning medications this morning. He reports he slept for the late and then had this episode and has not had a chance. REVIEW OF SYSTEMS: CONSTITUTIONAL : Denies fever, chills, or sweats. Denies recent illness. EENT: Denies eye, ear, throat, or mouth pain or symptoms. Denies nasal or sinus congestion or discharge. CARDIOVASCULAR: Denies chest pain. Denies palpitations or racing or irregular heart beat. Patient did have an episode of weakness. See HPI RESPIRATORY: Denies cough, cold, or chest congestion. Denies shortness of breath, difficulty breathing, or wheezing. GASTROINTESTINAL: Denies abdominal pain or distention. Denies nausea, vomiting , or diarrhea. GENITOURINARY: Denies difficulty urinating, painful urination, burning, frequency, blood in urine, or discharge. MUSCULOSKELETAL: Denies back or neck pain or stiffness. Denies joint pain or swelling. SKIN: Denies rash, lesions or sores. No diaphoresis. LYMPHATIC: Denies swollen, enlarged glands. NEUROLOGICAL: Denies confusion or altered mental status. Denies passing out or loss of consciousness. Denies dizziness or lightheadedness. Denies headache. ALL OTHER SYSTEMS REVIEWED AND NEGATIVE. TRAVEL OUTSIDE OF THE [place] IN LAST 30 DAYS: No - Related Data Allergies/Adverse Reactions: promethazine [From Phenergan] Adverse Reaction (Intermediate, Verified 06/22/17 10:57) Dystonia Past Medical History - Social History Smoking Status: Never Smoker Chew tobacco use (# tins/day): No Frequency of alcohol use: None Drug Abuse: None Family History: DM, Hypertension - Past Medical History Cardiac Medical History: Reports: Hx Atrial Fibrillation - Paroxysmal, Hx Congestive Heart Failure - Systolic; ejection fraction 2016 of approximately 20% ., Hx Coronary Artery Disease, Hx Heart Attack - [place] December 2016, Hx Hypercholesterolemia, Hx Hypertension Denies: Hx DVT, Hx Pulmonary Embolism Pulmonary Medical History: Reports: Hx Bronchitis, Hx COPD - Nightly and as needed 2 L oxygen per nasal cannula, Hx Sleep Apnea - Nasal CPAP; pressure 10 Denies: Hx Asthma Neurological Medical History: Denies: Hx Seizures Endocrine Medical History: Reports: Hx Diabetes Mellitus Type 2. Denies: Hx Diabetes Mellitus Type 1, Hx Hyperthyroidism, Hx Hypothyroidism Renal/ Medical History: Reports: Hx Renal Insufficiency. Denies: Hx Peritoneal Dialysis GI Medical History: Reports: Hx Gastroesophageal Reflux Disease, Hx Colonoscopy , Hx Endoscopy. Denies: Hx Cirrhosis Musculoskeltal Medical History: Reports Hx Arthritis, Reports Hx Gout - Primarily affecting left ankle and foot, Reports Hx Musculoskeletal Deformity - Back pain for 4-5 years Psychiatric Medical History: Denies: Hx Depression Infectious Medical History: Denies: Hx C-Diff, Hx MRSA Past Surgical History: Reports: Hx Orthopedic Surgery - right rotator cuff - Immunizations Hx Diphtheria, Pertussis, Tetanus Vaccination: Yes Hx Pneumococcal Vaccination: 11/05/13 Physical Exam - Vital signs Vitals: Resp Pulse Ox 16 93 06/22/17 10:41 06/22/17 10:41 - Notes Notes: PHYSICAL EXAMINATION: GENERAL: Well-appearing, well-nourished and in no acute distress. Alert and interactive. Patient is wearing a "LifeVest". HEAD: Atraumatic, normocephalic. ENT: Nares patent, oropharynx clear without exudates. Moist mucous membranes. NECK: Normal range of motion, supple without lymphadenopathy LUNGS: Breath sounds clear to auscultation bilaterally and equal. No wheezes rales or rhonchi. HEART: Regular rate and rhythm without murmurs ABDOMEN: Soft, nontender, nondistended abdomen. No guarding, no rebound. No masses appreciated. Musculoskeletal: Normal range of motion, no pitting or edema. No cyanosis. NEUROLOGICAL: Cranial nerves grossly intact. Normal speech, normal gait. Normal sensory, motor exams PSYCH: Normal mood, normal affect. SKIN: Warm, Dry, no rashes or lesions noted. Course - Re-evaluation Re-evalutation: 06/22/17 11:23 Pleasant well-appearing 66-year-old male in no acute distress. He had an episode of weakness that lasted approximately 15 minutes. He had no diaphoresis , chest pain, or palpitations during this episode. He has had similar recently and has been observed in the hospital. We are checking basic cardiac tests. I will call his vegetable grower to review the situation and seek their input. I am having the patient take his usual morning medications at this time. 06/22/17 12:13 Patient has been stable during his stay. His troponin comes back at a lower level than his recent visit earlier in the month. I reviewed his records. It appears to be a pattern of syncopal or near syncopal episodes. I have called his vegetable grower and left a message, seeking their input into the next step for Mr. Daugherty. At this time I will continue to observe him in the emergency department. 06/22/17 13:48 I have spoken with the patient's vegetable grower, Dr. Reyes, and also spoke with the patient with the vegetable grower on the telephone, all of us speaking together. The vegetable grower has very low suspicion for any ischemic problem. He and I have spoken about the patient's history of similar episodes. We spoke of his interrogation last week. The vegetable grower believes we can discharge him home safely without any further testing at this time. Reexamination of the patient, while Dr. Arnold WAS ON THE PHONE, SHOWS THE PATIENT FEELING WELL AND FEELING VERY COMFORTABLE WITH DISCHARGE. HE WILL SEE HIS TRANSMITTER SUPERVISOR TOMORROW AT APPROXIMATELY 1:00. - Vital Signs Vital signs: Temp Pulse Resp BP Pulse Ox 9 L 128/84 H 100 06/22/17 11:01 06/22/17 11:01 06/22/17 11:01 - Laboratory Result Diagrams: 06/22/17 10:41 06/22/17 10:41 Laboratory results interpreted by me: 06/22/17 06/22/17 06/22/17 10:41 10:41 11:55 RBC 5.67 H Hgb 13.1 L MCV 72 L MCH 23.0 L MCHC 31.9 L RDW 18.6 H Plt Count 144 L Sodium 145.5 H BUN 54 H Creatinine 1.99 H Est GFR ( Amer) 41 L Est GFR (Non-Af Amer) 34 L Glucose 174 H Calcium 10.8 H Direct Bilirubin 0.5 H Creatine Kinase 53 L Urine Ketones TRACE H Discharge - Discharge Clinical Impression: Near syncope Condition: Good Disposition: HOME, SELF-CARE Instructions: Near Syncopal Episode ([facility]) Additional Instructions: Follow-up with Dr. Arnold as we discussed with him. See him tomorrow at 1 PM. Continue your current medications. Return to the emergency department if you have any further episodes of near fainting, fainting, if you have any chest pain or palpitations, or other urgent concerns. Referrals: RUFINA LOWRY MD [Primary Care Provider] - Follow up as needed NAVNEET ARNOLD MD [NO LOCAL MD] - 06/23/17 1:00 pm
[2017-06-22 11:25] LABS: ALANINE AMINOTRANSFERASE 53 U/L (21-72); ALBUMIN 4.7 g/dL (3.5-5.0); ALKALINE PHOSPHATASE 118 U/L (38-126); ANION GAP 17 (5-19); ASPARTATE AMINO TRANSFERASE 47 U/L (17-59); BILIRUBIN,DIRECT 0.5 mg/dL (0.0-0.4); BILIRUBIN,TOTAL 0.8 mg/dL (0.2-1.3); BLOOD UREA NITROGEN 54 mg/dL (7-20); CALCIUM 10.8 mg/dL (8.4-10.2); CARBON DIOXIDE 26 mmol/L (22-30); CHLORIDE 103 mmol/L (98-107); CREATINE KINASE 53 U/L (55-170); CREATININE RESULT 1.99 mg/dL (0.52-1.25); GLUCOSE 174 mg/dL (75-110); POTASSIUM 4.4 mmol/L (3.6-5.0); SODIUM 145.5 mmol/L (137-145); TOTAL PROTEIN 7.5 g/dL (6.3-8.2)
[2017-06-22 11:36] LABS: TROPONIN I 0.016 ng/mL
[2017-06-22 12:00] LABS: CREATINE KINASE MB 1.72 ng/mL (<4.55)
[2017-06-22 12:25] LABS: APPEARANCE,URINE CLEAR; BILIRUBIN,URINE NEGATIVE (NEGATIVE); GLUCOSE, URINE NEGATIVE (NEGATIVE); KETONES,URINE TRACE mg/dL (NEGATIVE); LEUKOCYTE ESTERASE,URINE NEGATIVE (NEGATIVE); NITRITE,URINE NEGATIVE (NEGATIVE); PROTEIN,URINE NEGATIVE (NEGATIVE); URINE SPECIFIC GRAVITY 1.018; UROBILINOGEN,URINE NEGATIVE mg/dL (<2.0)
[2017-06-22 14:23] VITALS: BP 116/93
--- NOTE | 2017-06-22 18:36 | EKG REPORT ---
SEVERITY:- ABNORMAL ECG - SINUS RHYTHM VENTRICULAR PREMATURE COMPLEX PROBABLE LEFT ATRIAL ABNORMALITY LAD, CONSIDER LAFB OR INFERIOR INFARCT BORDERLINE T ABNORMALITIES, LATERAL LEADS : Confirmed by: Dionicio Mckeon 22-Jun-2017 18:35:48
== END 2017-06-22 14:24 | disposition home or self-care (01) ==
LOC: ER 10:28
DX: R55 Syncope and collapse (principal); I48.0 Paroxysmal atrial fibrillation; I50.9 Heart failure, unspecified; I25.2 Old myocardial infarction; I25.10 Atherosclerotic heart disease of native coronary artery without angina pectoris; E78.00 Pure hypercholesterolemia, unspecified; I10 Essential (primary) hypertension
CPT/HCPCS: 36415; 80053; 81001; 82550; 82553; 84484; 85025; 93005; 93010; 99284

== ENCOUNTER → 2017-08-27 | Outpatient (CLI) | payer MEDICARE, OTHER ==
[2017-08-27 10:53] LABS: APPEARANCE,URINE CLEAR; BILIRUBIN,URINE NEGATIVE (NEGATIVE); GLUCOSE, URINE 50 mg/dL (NEGATIVE); KETONES,URINE NEGATIVE (NEGATIVE); LEUKOCYTE ESTERASE,URINE NEGATIVE (NEGATIVE); NITRITE,URINE NEGATIVE (NEGATIVE); PROTEIN,URINE NEGATIVE (NEGATIVE); URINE SPECIFIC GRAVITY 1.006; UROBILINOGEN,URINE NEGATIVE mg/dL (<2.0)
[2017-08-27 10:54] LABS: ABSOLUTE BASOPHILS # (AUTO) 0.1 10^3/uL (0.0-0.2); ABSOLUTE EOSINOPHILS # (AUTO) 0.1 10^3/uL (0.0-0.6); ABSOLUTE LYMPHOCYTES (AUTO) 1.5 10^3/uL (0.5-4.7); ABSOLUTE MONOCYTES (AUTO) 0.6 10^3/uL (0.1-1.4); ABSOLUTE NEUT (AUTO) 3.6 10^3/uL (1.7-8.2); BASOPHILS % (AUTO) 1.4 % (0-2); EOSINOPHILS % (AUTO) 1.9 % (0-6); HEMATOCRIT 35.3 % (37.9-51.0); HEMOGLOBIN 11.2 g/dL (13.5-17.0); HGB HCT DIFFERENCE -1.7; LYMPHOCYTES % (AUTO) 25.2 % (13-45); MEAN CORPUSCULAR HEMOGLOBIN 23.4 pg (27.0-33.4); MEAN CORPUSCULAR HGB CONC 31.9 g/dL (32.0-36.0); MEAN CORPUSCULAR VOLUME 73 fl (80-97); MONOCYTES % (AUTO) 10.7 % (3-13); RED BLOOD COUNT 4.81 10^6/uL (4.35-5.55); RED CELL DISTRIBUTION WIDTH 19.4 % (11.5-14.0); SEGMENTED NEUTROPHILS % (AUTO) 60.8 % (42-78); WHITE BLOOD COUNT 5.9 10^3/uL (4.0-10.5)
[2017-08-27 11:13] LABS: ALBUMIN 4.3 g/dL (3.5-5.0); ANION GAP 11 (5-19); BLOOD UREA NITROGEN 39 mg/dL (7-20); CALCIUM 10.4 mg/dL (8.4-10.2); CARBON DIOXIDE 32 mmol/L (22-30); CHLORIDE 99 mmol/L (98-107); CREATININE RESULT 1.97 mg/dL (0.52-1.25); GLUCOSE 255 mg/dL (75-110); PHOSPHORUS 3.9 mg/dL (2.5-4.5); POTASSIUM 5.1 mmol/L (3.6-5.0); SODIUM 142.3 mmol/L (137-145)
[2017-08-28 14:53] LABS: MICROALBUMIN URINE <3.0 ug/mL (Not Estab.)
== END ==
LOC: OD 10:09
PROVIDERS: ATTEND Internal Medicine Nephrology
DX: N18.3 Chronic kidney disease, stage 3 (moderate) (principal); D64.9 Anemia, unspecified
CPT/HCPCS: 36415; 80048; 81001; 82040; 82043; 82306; 82570; 83970; 84100; 85025

== ENCOUNTER 2017-10-21 12:42 | Emergency (ER) | payer MEDICARE, OTHER ==
[2017-10-21] MEDS ORDERED: DEXAMETHASONE SOD PHOS INJ 10 MG/1 ML VIAL IM ONE (16:52)
--- NOTE | 2017-10-21 17:21 | ER Document Report ---
ED General - General Chief Complaint: Back Pain Stated Complaint: BACK PAIN Time Seen by Provider: 10/21/17 13:58 Mode of Arrival: Ambulatory Information source: Patient Notes: This is a pleasant 67-year-old man with a history of CHF, chronic kidney disease , cardiomyopathy (currently with a LifeVest, followed by Dr. Cobb at [facility] ), history of significant back pain and his required Decadron shot in the past in the ER. The patient presents to the ER with low back pain. He denies any saddle anesthesia, urinary retention, motor weakness or sensory disturbance. He states that his back acts up every once in a while and he states that he is gotten a shot here in the past and would like one today. TRAVEL OUTSIDE OF THE [place] IN LAST 30 DAYS: No - HPI Onset: This morning Onset/Duration: Gradual Quality of pain: Dull Severity: Moderate Pain Level: 2 Associated symptoms: denies: Chest pain, Fever, Shortness of breath Exacerbated by: Movement Relieved by: Denies Similar symptoms previously: Yes Recently seen / treated by doctor: No - Related Data Allergies/Adverse Reactions: promethazine [From Phenergan] Adverse Reaction (Intermediate, Verified 10/21/17 12:43) Dystonia Past Medical History - General Information source: Patient - Social History Smoking Status: Unknown if Ever Smoked Cigarette use (# per day): No Chew tobacco use (# tins/day): No Frequency of alcohol use: None Drug Abuse: None Lives with: Spouse/Significant other Family History: DM, Hypertension Patient has suicidal ideation: No Patient has homicidal ideation: No - Past Medical History Cardiac Medical History: Reports: Hx Atrial Fibrillation - Paroxysmal, Hx Congestive Heart Failure - Systolic; ejection fraction 2017 of approximately 20% ., Hx Coronary Artery Disease, Hx Heart Attack - [place] December 2016, Hx Hypercholesterolemia, Hx Hypertension Denies: Hx DVT, Hx Pulmonary Embolism Pulmonary Medical History: Reports: Hx Bronchitis, Hx COPD - Nightly and as needed 2 L oxygen per nasal cannula, Hx Sleep Apnea - Nasal CPAP; pressure 10 Denies: Hx Asthma Neurological Medical History: Denies: Hx Seizures Endocrine Medical History: Reports: Hx Diabetes Mellitus Type 2. Denies: Hx Diabetes Mellitus Type 1, Hx Hyperthyroidism, Hx Hypothyroidism Renal/ Medical History: Reports: Hx Renal Insufficiency. Denies: Hx Peritoneal Dialysis GI Medical History: Reports: Hx Gastroesophageal Reflux Disease, Hx Colonoscopy , Hx Endoscopy. Denies: Hx Cirrhosis Musculoskeltal Medical History: Reports Hx Arthritis, Reports Hx Gout - Primarily affecting left ankle and foot, Reports Hx Musculoskeletal Deformity - Back pain for 4-5 years Psychiatric Medical History: Denies: Hx Depression Infectious Medical History: Denies: Hx C-Diff, Hx MRSA Past Surgical History: Reports: Hx Orthopedic Surgery - right rotator cuff - Immunizations Hx Diphtheria, Pertussis, Tetanus Vaccination: Yes Hx Pneumococcal Vaccination: 11/05/13 Review of Systems - Review of Systems Notes: Review of systems: Constitutional: Denies fever, chills. EENT: Denies ear pain, sinus tenderness, throat pain, throat swelling. Cardiovascular: Denies chest pain, palpitations, dyspnea or edema. Respiratory: Denies wheezing, cough, hemoptysis. Abdomen: Denies abdominal pain, nausea, vomiting, diarrhea. Denies BRBPR or melena. Genitourinary: Denies dysuria, pyuria, hematuria, flank pain. Musculoskeletal: The H&P Neurologic: Denies headache, photophobia, neck stiffness, weakness. Denies loss of bowel or bladder function. Denies saddle anesthesia. Skin: Denies rash, lesions. Physical Exam - Vital signs Vitals: Temp Pulse Resp BP Pulse Ox 98.1 F 58 L 16 110/62 99 10/21/17 13:00 10/21/17 13:00 10/21/17 13:00 10/21/17 13:10/21/17 13:00 Notes: Physical exam: GENERAL: 67-year-old man, alert and oriented 3, no acute distress HEAD: Atraumatic, normocephalic. EYES: Pupils equal round and reactive to light, extraocular movements intact, sclera anicteric, conjunctiva are normal. ENT: TMs normal, nares patent, oropharynx clear without exudates. Moist mucous membranes. NECK: Normal range of motion, supple without obvious mass or JVD. LUNGS: Breath sounds clear to auscultation bilaterally and equal. No wheezes rales or rhonchi. HEART: LifeVest in place ABDOMEN: Soft, normoactive bowel sounds. No tenderness to palpation. No guarding, no rebound. No masses appreciated. Back: Patient having tenderness in the paraspinal muscles of the lower lumbar area. There is no bony step-offs or crepitus EXTREMITIES: Normal range of motion, no pitting or edema. No clubbing or cyanosis. NEUROLOGICAL: Cranial nerves II through XII grossly intact. Normal speech, moving all extremities. No sensory changes. PSYCH: Normal mood, normal affect. SKIN: Warm, Dry, normal turgor, no rashes or lesions noted. Course - Re-evaluation Re-evalutation: 10/21/17 19:42 Patient was unable to remember what shots he received that gave him benefit. I did review old records and I have seen that he was given IM Toradol and IM Decadron last spring (this is before the LifeVest). Since that time, his cardiac function obviously worsened and it does appear that his kidney function has worsened as well. I do not think he is a candidate for Toradol at this time given his renal function status. I did call the heart service at [facility] ([phone]) but was unable to get a call back. The patient states he would like the Decadron shot. He was given and observed for little while and seems to be doing better. I will refer him back to his primary care physician and statistical clerk. - Vital Signs Vital signs: Temp Pulse Resp BP Pulse Ox 98.0 F 60 16 121/69 100 10/21/17 17:36 10/21/17 17:36 10/21/17 17:36 10/21/17 17:36 10/21/17 17:36 Discharge - Discharge Clinical Impression: Back pain Condition: Stable Disposition: HOME, SELF-CARE Additional Instructions: The medicine you received in the emergency room was I am Decadron. Continue all other medicines. Follow-up with your statistical clerk as planned. Return to the emergency room for any worsening pain, loss of bowel or bladder function, numbness to the inner legs or any concerns or getting worse. Referrals: RUFINA LOWRY MD [Primary Care Provider] - Follow up as needed
[2017-10-21 17:38] VITALS: BP 121/69
== END 2017-10-21 17:36 | disposition home or self-care (01) ==
LOC: ER 12:42
DX: M54.9 Dorsalgia, unspecified (principal); I48.91 Unspecified atrial fibrillation; I50.9 Heart failure, unspecified; E78.00 Pure hypercholesterolemia, unspecified; I11.0 Hypertensive heart disease with heart failure; J44.9 Chronic obstructive pulmonary disease, unspecified; E11.9 Type 2 diabetes mellitus without complications; I25.2 Old myocardial infarction
CPT/HCPCS: 99283; 96372; J1100

== ENCOUNTER 2017-11-01 20:00 | Emergency (ER) | payer MEDICARE, OTHER ==
[2017-11-01] MEDS ORDERED: ACETAMINOPHEN 325 MG TABLET PO ONE (21:49)
[2017-11-01] MEDS ORDERED: DEXAMETHASONE SOD PHOS INJ 10 MG/1 ML VIAL IM ONE (21:49)
--- NOTE | 2017-11-01 21:53 | ER Document Report ---
ED General - General Chief Complaint: Back Pain Stated Complaint: BACK PAIN Time Seen by Provider: 11/01/17 21:23 Notes: Patient is a 67-year-old male who presents with 2 days of right hip pain. Patient describes it as a dull, constant, aching pain that is gotten progressively worse over the last several days. He has had similar history of symptoms in the past and states that they were treated well with a dose of steroids. He notes that he has scheduled follow-up with his primary care doctor in 2 days for evaluation of this ongoing right hip pain that he has had for the past several months. He states that he came to the emergency department today because he did not want his symptoms to get as severe as they did during his prior presentation. He denies any back pain, focal weakness, numbness, bowel or bladder incontinence, or inability to ambulate. He denies any trauma to the hip. No fever or constitutional symptoms. No history of septic arthritis or gouty arthritis. No prior surgery to the right hip. TRAVEL OUTSIDE OF THE [place] IN LAST 30 DAYS: No - Related Data Allergies/Adverse Reactions: promethazine [From Phenergan] Adverse Reaction (Intermediate, Verified 10/21/17 12:43) Dystonia Past Medical History - General Information source: Patient - Social History Smoking Status: Never Smoker Frequency of alcohol use: None Drug Abuse: None Lives with: Spouse/Significant other Family History: DM, Hypertension Patient has suicidal ideation: No Patient has homicidal ideation: No - Past Medical History Cardiac Medical History: Reports: Hx Atrial Fibrillation - Paroxysmal, Hx Congestive Heart Failure - Systolic; ejection fraction 2017 of approximately 20% ., Hx Coronary Artery Disease, Hx Heart Attack - [place] December 2016, Hx Hypercholesterolemia, Hx Hypertension Denies: Hx DVT, Hx Pulmonary Embolism Pulmonary Medical History: Reports: Hx Bronchitis, Hx COPD - Nightly and as needed 2 L oxygen per nasal cannula, Hx Sleep Apnea - Nasal CPAP; pressure 10 Denies: Hx Asthma Neurological Medical History: Denies: Hx Seizures Endocrine Medical History: Reports: Hx Diabetes Mellitus Type 2. Denies: Hx Diabetes Mellitus Type 1, Hx Hyperthyroidism, Hx Hypothyroidism Renal/ Medical History: Reports: Hx Renal Insufficiency. Denies: Hx Peritoneal Dialysis GI Medical History: Reports: Hx Gastroesophageal Reflux Disease, Hx Colonoscopy , Hx Endoscopy. Denies: Hx Cirrhosis Musculoskeltal Medical History: Reports Hx Arthritis, Reports Hx Gout - Primarily affecting left ankle and foot, Reports Hx Musculoskeletal Deformity - Back pain for 4-5 years Psychiatric Medical History: Denies: Hx Depression Infectious Medical History: Denies: Hx C-Diff, Hx MRSA Past Surgical History: Reports: Hx Orthopedic Surgery - right rotator cuff - Immunizations Hx Diphtheria, Pertussis, Tetanus Vaccination: Yes Hx Pneumococcal Vaccination: 11/05/13 Review of Systems - Review of Systems Notes: Constitutional: Negative for fever. HENT: Negative for sore throat. Eyes: Negative for visual changes. Cardiovascular: Negative for chest pain. Respiratory: Negative for shortness of breath. Gastrointestinal: Negative for abdominal pain, vomiting or diarrhea. Genitourinary: Negative for dysuria. Musculoskeletal: Positive for right hip pain Skin: Negative for rash. Neurological: Negative for headaches, weakness or numbness. 10 point ROS negative except as marked above and in HPI. Physical Exam - Vital signs Vitals: Temp Pulse BP Pulse Ox 98.4 F 57 L 115/67 100 11/01/17 20:48 11/01/17 20:48 11/01/17 20:48 11/01/17 20:48 Interpretation: Bradycardic Notes: PHYSICAL EXAMINATION: GENERAL: Well-appearing, well-nourished and in no acute distress. HEAD: Atraumatic, normocephalic. EYES: Pupils equal round and reactive to light, extraocular movements intact, sclera anicteric, conjunctiva are normal. ENT: nares patent, oropharynx clear without exudates. Moist mucous membranes. NECK: Normal range of motion, supple without lymphadenopathy LUNGS: Breath sounds clear to auscultation bilaterally and equal. No wheezes rales or rhonchi. HEART: Regular bradycardia without murmurs patient is wearing a LifeVest ABDOMEN: Soft, nontender, normoactive bowel sounds. No guarding, no rebound. No masses appreciated. EXTREMITIES: Normal range of motion, no pitting or edema. Pain on palpation of the right hip joint as well as with axial loading and internal rotation of the right hip. There is no swelling or deformity to the hip. No cyanosis. NEUROLOGICAL: No focal neurological deficits. Moves all extremities spontaneously and on command. PSYCH: Normal mood, normal affect. SKIN: Warm, Dry, normal turgor, no rashes or lesions noted. Course - Re-evaluation Re-evalutation: 11/01/17 21:50 Patient presents with acute on chronic worsening of right-sided hip pain. Patient has been seen in the past with concerns of this pain and it was thought to be in the low back with patient reports that is actually much more localized to the right hip itself. Examination shows mild pain with axial loading of the right hip as well as internal/external rotation of the hip. Direct pain on palpation of the hip joint. There is no swelling or erythema to the area. No clinical history to suggest a septic joint. Patient has no low back discomfort. He states that he has had this problem currently and is actually scheduled follow-up with his primary care doctor within the next 2 days. He is asking for a shot of Decadron which is helped in the past. I do not see any reason to not provide this as patient reports that does provide significant relief in the past. I did however discuss the patient at length that he will likely require follow-up with orthopedic surgery for consideration of intra- articular injections versus possible arthroplasty given the recurrent nature of this pain. Patient denies any red flag symptoms to suggest any kind of acute life-threatening pathology including cord compression, cauda equina, spinal abscess. He has no difficulty with ambulation although does have an antalgic gait. No saddle anesthesia, bowel or bladder incontinence, urinary retention, and his lower extremity neurologic exam is noted to be unremarkable. At this time will discharge with return precautions and follow-up recommendations. Verbal discharge instructions given a the bedside and opportunity for questions given. Medication warnings reviewed. Patient is in agreement with this plan and has verbalized understanding of return precautions and the need for primary care follow-up in the next 24-72 hours. - Vital Signs Vital signs: Temp Pulse Resp BP Pulse Ox 97.7 F 65 14 110/60 100 11/01/17 22:02 11/01/17 22:02 11/01/17 22:02 11/01/17 22:02 11/01/17 22:02 Discharge - Discharge Clinical Impression: Chronic right hip pain Condition: Good Disposition: HOME, SELF-CARE Additional Instructions: Follow-up with your primary care doctor as scheduled. Continue take Tylenol 1000 mg every 6 hours as needed for pain and use the lidocaine patches that you have at home. You may need to follow-up with orthopedic surgery for consideration of injections into the joint of the right hip or even consideration of a hip replacement if this pain does persist. Return if you develop fever, worsening pain, inability to walk, weakness, numbness, or any other symptoms that are worrisome to you. Referrals: RUFINA LOWRY MD [Primary Care Provider] - Follow up as needed
[2017-11-01 22:05] VITALS: BP 110/60
== END 2017-11-01 22:27 | disposition home or self-care (01) ==
LOC: ER 20:00
DX: M25.551 Pain in right hip (principal); G89.29 Other chronic pain; M54.9 Dorsalgia, unspecified
CPT/HCPCS: 99283; 96372; A9270; J1100

== ENCOUNTER → 2017-11-23 | Outpatient (CLI) | payer MEDICARE, OTHER ==
[2017-11-23 08:53] LABS: HEMATOCRIT 37.8 % (37.9-51.0); HEMOGLOBIN 11.9 g/dL (13.5-17.0); MEAN CORPUSCULAR HEMOGLOBIN 24.3 pg (27.0-33.4); MEAN CORPUSCULAR HGB CONC 31.4 g/dL (32.0-36.0); MEAN CORPUSCULAR VOLUME 77 fl (80-97); RED BLOOD COUNT 4.89 10^6/uL (4.35-5.55); RED CELL DISTRIBUTION WIDTH 14.8 % (11.5-14.0); WHITE BLOOD COUNT 6.9 10^3/uL (4.0-10.5)
[2017-11-23 09:11] LABS: ANION GAP 8 (5-19); BLOOD UREA NITROGEN 41 mg/dL (7-20); CALCIUM 10.1 mg/dL (8.4-10.2); CARBON DIOXIDE 36 mmol/L (22-30); CHLORIDE 102 mmol/L (98-107); GLUCOSE 84 mg/dL (75-110); POTASSIUM 5.5 mmol/L (3.6-5.0); SODIUM 146.2 mmol/L (137-145)
[2017-11-23 09:15] LABS: PLATELET COUNT 140 10^3/uL (150-450)
[2017-11-23 09:18] LABS: ABSOLUTE LYMPHOCYTES# (MANUAL) 1.4 10^3/uL (0.5-4.7); ABSOLUTE MONOCYTES # (MANUAL) 0.2 10^3/uL (0.1-1.4); ABSOLUTE NEUTROPHILS# (MANUAL) 4.9 10^3/uL (1.7-8.2); BASOPHILS % (MANUAL) 1 % (0-2); EOSINOPHILS % (MANUAL) 4 % (0-6); LYMPHOCYTES % (MANUAL) 21 % (13-45); METAMYELOCYTES % (MANUAL) 1 % (0); MONOCYTES % (MANUAL) 3 % (3-13); SEGMENTED NEUTROPHILS % (MAN) 70 % (42-78); TOTAL CELLS COUNTED 100
[2017-11-23 09:19] LABS: TOXIC GRANULATION 1+
[2017-11-23 09:20] LABS: HYPOCHROMASIA 1+; OVALOCYTES 2+; PLATELET COMMENT DECREASED; POIKILOCYTOSIS 2+
== END ==
LOC: OD 08:18
PROVIDERS: ATTEND Internal Medicine Nephrology
DX: I12.9 Hypertensive chronic kidney disease with stage 1 through stage 4 chronic kidney disease, or unspecified chronic kidney disease (principal); N18.3 Chronic kidney disease, stage 3 (moderate); N25.81 Secondary hyperparathyroidism of renal origin; E11.9 Type 2 diabetes mellitus without complications
CPT/HCPCS: 36415; 80048; 83735; 83970; 85025

== ENCOUNTER → 2017-11-27 | Outpatient (CLI) | payer MEDICARE, OTHER ==
[2017-11-27 10:17] LABS: ANION GAP 7 (5-19); BLOOD UREA NITROGEN 52 mg/dL (7-20); CALCIUM 9.6 mg/dL (8.4-10.2); CARBON DIOXIDE 35 mmol/L (22-30); CHLORIDE 96 mmol/L (98-107); GLUCOSE 193 mg/dL (75-110); SODIUM 137.9 mmol/L (137-145)
== END ==
LOC: OD 08:22
PROVIDERS: ATTEND Nurse Practitioner
DX: I50.22 Chronic systolic (congestive) heart failure (principal); N18.9 Chronic kidney disease, unspecified
CPT/HCPCS: 36415; 80048

== ENCOUNTER 2017-12-01 18:30 | Emergency (ER) | payer MEDICARE, OTHER ==
[2017-12-01] MEDS ORDERED: LIDOCAINE 5% (700 MG) TRANSDERMAL ADH..PATCH TP ONE (20:07)
[2017-12-01] MEDS ORDERED: DEXAMETHASONE SOD PHOS INJ 10 MG/1 ML VIAL IM ONE (20:07)
[2017-12-01] MEDS ORDERED: HYDROCODONE/ACETAMINOPHEN 5-325 MG (6 TAB/ER DISP) PO PRN (20:08)
--- NOTE | 2017-12-01 20:09 | ER Document Report ---
HPI - HPI Patient complains to provider of: lower back pain Pain Level: 4 Context: Patient is a 67-year-old male comes emergency department for chief complaint of pain in his lower back radiating down his right leg. He states he has a history of sciatica, he states that he is scheduled for an injection in his back for treatment of this over the next week. He states that he could not get comfortable tonight and came in as result. He states intermittently he has pain this bad. He denies incontinence, numbness, fever, IV drug abuse, history of joint infections. He states that he has had imaging within the past 2 weeks of his back and hip which led to his injection plan. He comes by EMS. His is at bedside. - MUSCULOSKELETAL Musculoskeletal: REPORTS: Extremity pain - RIGHT LEG Past Medical History - General Information source: Patient, Relative - Social History Smoking Status: Never Smoker Frequency of alcohol use: None Drug Abuse: None Lives with: Family Family History: DM, Hypertension Patient has suicidal ideation: No Patient has homicidal ideation: No - Past Medical History Cardiac Medical History: Reports: Hx Atrial Fibrillation - Paroxysmal, Hx Congestive Heart Failure - Systolic; ejection fraction 2017 of approximately 20% ., Hx Coronary Artery Disease, Hx Heart Attack - [place] December 2016, Hx Hypercholesterolemia, Hx Hypertension Denies: Hx DVT, Hx Pulmonary Embolism Pulmonary Medical History: Reports: Hx Bronchitis, Hx COPD - Nightly and as needed 2 L oxygen per nasal cannula, Hx Sleep Apnea - Nasal CPAP; pressure 10 Denies: Hx Asthma Neurological Medical History: Denies: Hx Seizures Endocrine Medical History: Reports: Hx Diabetes Mellitus Type 2. Denies: Hx Diabetes Mellitus Type 1, Hx Hyperthyroidism, Hx Hypothyroidism Renal/ Medical History: Reports: Hx Renal Insufficiency. Denies: Hx Peritoneal Dialysis GI Medical History: Reports: Hx Gastroesophageal Reflux Disease, Hx Colonoscopy , Hx Endoscopy. Denies: Hx Cirrhosis Musculoskeltal Medical History: Reports Hx Arthritis, Reports Hx Gout - Primarily affecting left ankle and foot, Reports Hx Musculoskeletal Deformity - Back pain for 4-5 years Psychiatric Medical History: Denies: Hx Depression Infectious Medical History: Denies: Hx C-Diff, Hx MRSA Past Surgical History: Reports: Hx Cardiac Surgery - DEFIB, Hx Orthopedic Surgery - right rotator cuff - Immunizations Hx Diphtheria, Pertussis, Tetanus Vaccination: Yes Hx Pneumococcal Vaccination: 11/05/13 Vertical Provider Document - CONSTITUTIONAL General Appearance: WD/WN, No Apparent Distress - INFECTION CONTROL TRAVEL OUTSIDE OF THE [place] IN LAST 30 DAYS: No - HEENT HEENT: Atraumatic, Normocephalic - NECK Neck: Normal Inspection - RESPIRATORY Respiratory: Breath Sounds Normal, No Respiratory Distress - CARDIOVASCULAR Cardiovascular: Regular Rate, Regular Rhythm - GI/ABDOMEN Gastrointestinal: Abdomen Soft, Abdomen Non-Tender - BACK Back: negative: Normal Inspection - Pain over the right paralumbar musculature, no midline tenderness, saddle anesthesia, or neurological deficit. Normal distal neurovascular exam. Full range of motion at the hip, no abnormal heat or redness at the hip. - MUSCULOSKELETAL/EXTREMETIES Musculoskeletal/Extremeties: MAEW, FROM, Non-Tender - NEURO Level of Consciousness: Awake, Alert, Appropriate Motor/Sensory: No Motor Deficit, No Sensory Deficit - DERM Integumentary: Warm, Dry, No Rash Course - Re-evaluation Re-evalutation: Patient has pain in the right lower back along the lower lumbar area, no midline tenderness, no saddle anesthesia, no neurological deficits. Patient is telling me that dexamethasone has helped him a lot in the past and he is requesting this specifically. He also asked for lidocaine patch. He asks for something for pain at home. He was given [place] dispense pack as a result. Patient with no fever, tachycardia, hypotension, concerning reported symptoms, neurological deficits, or evidence of joint infection on exam. He has good orthopedic follow-up. Patient will be discharged with return precautions. Patient and state satisfaction and agreement. - Vital Signs Vital signs: Temp Pulse Resp BP Pulse Ox 98.0 F 66 18 117/47 L 100 12/01/17 18:42 12/01/17 18:42 12/01/17 18:42 12/01/17 18:42 12/01/17 18:42 Discharge - Discharge Clinical Impression: Lower back pain Qualifiers: Chronicity: acute Back pain laterality: right Sciatica presence: with sciatica Sciatica laterality: sciatica of right side Qualified Code(s): M54.41 - Lumbago with sciatica, right side Sciatica Qualifiers: Laterality: right Qualified Code(s): M54.31 - Sciatica, right side Condition: Stable Disposition: HOME, SELF-CARE Additional Instructions: Continue your current medications including baclofen and Tylenol. Use the prescribed patches in addition to this if needed. Follow-up closely with your orthopedic provider for additional evaluation and management. Return if you worsen including numbness, loss of control of your bowel or bladder, fever, or any other concerning or worsening symptoms. Prescriptions: Lidocaine [Lidoderm 5% (700 mg) Transdermal Patch] 1 patch TP DAILY #30 adh..patch Referrals: RUFINA LOWRY MD [Primary Care Provider] - Follow up as needed
[2017-12-01 20:22] VITALS: BP 114/65
== END 2017-12-01 20:38 | disposition home or self-care (01) ==
LOC: ER 18:30
DX: M54.41 Lumbago with sciatica, right side (principal); I25.10 Atherosclerotic heart disease of native coronary artery without angina pectoris; I10 Essential (primary) hypertension; I25.2 Old myocardial infarction; J44.9 Chronic obstructive pulmonary disease, unspecified; E11.9 Type 2 diabetes mellitus without complications; Z95.810 Presence of automatic (implantable) cardiac defibrillator
CPT/HCPCS: 99283; 96372; J1100; A9270

== ENCOUNTER 2017-12-02 01:04 | Emergency (ER) | payer MEDICARE, OTHER ==
[2017-12-02] MEDS ORDERED: NORMAL SALINE 1000 ML 500 ML IV ONE (05:01)
[2017-12-02] MEDS ORDERED: ONDANSETRON HCL INJ/PF 4 MG/2 ML SDV IV ONE (05:01)
--- NOTE | 2017-12-02 05:02 | ER Document Report ---
ED GI/ - General TRAVEL OUTSIDE OF THE [place] IN LAST 30 DAYS: No <MARCIAL AVELAR - Last Filed: 12/02/17 07:58> <TWILA HANSON - Last Filed: 12/02/17 13:54> - General Chief Complaint: Hip Pain Stated Complaint: HIP PAIN Time Seen by Provider: 12/02/17 04:43 Notes: Patient is a 67-year-old male comes emergency department for chief complaint of vomiting. He was discharged by ar earlier tonight after he had been evaluated for hip pain, he states he no longer has hip pain because of his treatments but after he took a [place] that he was given to go home with he started vomiting. He vomited several times, became concerned, return for evaluation. He denies chest pain, dizziness, flank pain, abdominal pain. He denies any symptoms at this time. (MARCIAL AVELAR) 67 years old male had a CT of the head which was reported by radiologist as negative, he has flapping tremor of the hand, for which he has been asked to follow-up with the neurologist. (TWILA HANSON) - Related Data Allergies/Adverse Reactions: promethazine [From Phenergan] Adverse Reaction (Intermediate, Verified 12/01/17 18:43) Dystonia Past Medical History - General Information source: Patient - Social History Smoking Status: Never Smoker Frequency of alcohol use: None Drug Abuse: None Lives with: Family Family History: DM, Hypertension Patient has suicidal ideation: No Patient has homicidal ideation: No - Past Medical History Cardiac Medical History: Reports: Hx Atrial Fibrillation - Paroxysmal, Hx Congestive Heart Failure - Systolic; ejection fraction 2017 of approximately 20% ., Hx Coronary Artery Disease, Hx Heart Attack - [place] December 2016, Hx Hypercholesterolemia, Hx Hypertension Denies: Hx DVT, Hx Pulmonary Embolism Pulmonary Medical History: Reports: Hx Bronchitis, Hx COPD - Nightly and as needed 2 L oxygen per nasal cannula, Hx Sleep Apnea - Nasal CPAP; pressure 10 Denies: Hx Asthma Neurological Medical History: Denies: Hx Seizures Endocrine Medical History: Reports: Hx Diabetes Mellitus Type 2. Denies: Hx Diabetes Mellitus Type 1, Hx Hyperthyroidism, Hx Hypothyroidism Renal/ Medical History: Reports: Hx Renal Insufficiency. Denies: Hx Peritoneal Dialysis GI Medical History: Reports: Hx Gastroesophageal Reflux Disease, Hx Colonoscopy , Hx Endoscopy. Denies: Hx Cirrhosis Musculoskeltal Medical History: Reports Hx Arthritis, Reports Hx Gout - Primarily affecting left ankle and foot, Reports Hx Musculoskeletal Deformity - Back pain for 4-5 years Psychiatric Medical History: Denies: Hx Depression Infectious Medical History: Denies: Hx C-Diff, Hx MRSA Past Surgical History: Reports: Hx Cardiac Surgery - DEFIB, Hx Orthopedic Surgery - right rotator cuff - Immunizations Hx Diphtheria, Pertussis, Tetanus Vaccination: Yes Hx Pneumococcal Vaccination: 11/05/13 <MARCIAL AVELAR - Last Filed: 12/02/17 07:58> Review of Systems - Review of Systems Constitutional: No symptoms reported EENT: No symptoms reported Cardiovascular: No symptoms reported Respiratory: No symptoms reported Gastrointestinal: See HPI Genitourinary: No symptoms reported Male Genitourinary: No symptoms reported Musculoskeletal: See HPI Skin: No symptoms reported Hematologic/Lymphatic: No symptoms reported Neurological/Psychological: No symptoms reported <MARCIAL AVELAR Last Filed: 12/02/17 07:58> Physical Exam - Vital signs Interpretation: Normal - General General appearance: Appears well, Alert In distress: None - HEENT Head: Normocephalic, Atraumatic Eyes: Normal Pupils: PERRL - Respiratory Respiratory status: No respiratory distress Chest status: Nontender Breath sounds: Normal Chest palpation: Normal - Cardiovascular Rhythm: Regular Heart sounds: Normal auscultation Murmur: No - Abdominal Inspection: Normal Distension: No distension Bowel sounds: Normal Tenderness: Nontender. No: Tender Organomegaly: No organomegaly - Back Back: Tender - Still has mild tenderness over the right lumbar musculature, otherwise normal back exam with no neurological deficit. No: Vertebra tenderness - Extremities General upper extremity: Normal inspection, Nontender, Normal color, Normal ROM , Normal temperature General lower extremity: Normal inspection, Nontender, Normal color, Normal ROM , Normal temperature, Normal weight bearing. No: Susan's sign - Neurological Neuro grossly intact: Yes Cognition: Normal Orientation: AAOx4 Elen Coma Scale Eye Opening: Spontaneous [place] Coma Scale Verbal: Oriented Elen Coma Scale Motor: Obeys Commands [place] Coma Scale Total: 15 Speech: Normal Motor strength normal: LUE, RUE, LLE, RLE Sensory: Normal - Psychological Associated symptoms: Normal affect, Normal mood - Skin Skin Temperature: Warm Skin Moisture: Dry Skin Color: Normal <FRIANT,MARCIAL - Last Filed: 12/02/17 07:58> - Vital signs Vitals: Temp Pulse Resp BP Pulse Ox 97.8 F 61 20 131/81 H 100 12/02/17 02:05 12/02/17 02:05 12/02/17 02:05 12/02/17 02:05 12/02/17 02:05 Course - Laboratory Result Diagrams: 12/02/17 05:23 12/02/17 05:23 <MARCIAL AVELAR - Last Filed: 12/02/17 07:58> - Laboratory Result Diagrams: 12/02/17 05:23 12/02/17 05:23 <MARGIESPILIA - Last Filed: 12/02/17 13:54> - Re-evaluation Re-evalutation: When I evaluated patient he states he actually no longer feels nauseated, he states his hip does not hurt, his back does not hurt, he has no current complaints. No CVA tenderness, no abdominal tenderness, denies chest pain, dizziness, lightheadedness. Symptoms started right after he took the [place], suspected presented to the medication. Decision was made to perform additional workup because of his symptoms. Mild leukocytosis, nonspecific, unremarkable vital signs. Chemistry shows hyperglycemia but no anion gap abnormality or acidosis. Kidneys functioning at baseline. Urine shows some dehydration but is otherwise unremarkable. On reevaluation patient states he feels great. Discussed with Dr. Barron. Discussed hypoglycemia, treated with insulin, patient states he is ready to go home. He does request alternative medication for pain, he is provided with this along with precautions and instructions. Discussed with , she states satisfaction and agreement with plan. (MARCIAL AVELAR) - Vital Signs Vital signs: Temp Pulse Resp BP Pulse Ox 97.9 F 61 18 109/54 L 96 12/02/17 10:47 12/02/17 02:05 12/02/17 13:01 12/02/17 13:01 12/02/17 13:01 - Laboratory Laboratory results interpreted by me: 12/02/17 12/02/17 12/02/17 05:23 05:23 05:23 WBC 13.1 H Hgb 12.9 L MCV 76 L MCH 24.1 L MCHC 31.6 L RDW 14.9 H Seg Neuts % (Manual) 93 H Lymphocytes % (Manual) 6 L Monocytes % (Manual) 1 L Abs Neuts (Manual) 12.2 H Carbon Dioxide 32 H BUN 44 H Creatinine 1.73 H Est GFR ( Amer) 48 L Est GFR (Non-Af Amer) 39 L Glucose 334 H POC Glucose Urine Protein 30 H Urine Glucose (UA) >=500 H Urine Ketones 20 H 12/02/17 12/02/17 12/02/17 06:14 07:51 09:38 WBC Hgb MCV MCH MCHC RDW Seg Neuts % (Manual) Lymphocytes % (Manual) Monocytes % (Manual) Abs Neuts (Manual) Carbon Dioxide BUN Creatinine Est GFR ( Amer) Est GFR (Non-Af Amer) Glucose POC Glucose 317 H 319 H 281 H Urine Protein Urine Glucose (UA) Urine Ketones Discharge <MARCIAL AVELAR - Last Filed: 12/02/17 07:58> <TWILA HANSON - Last Filed: 12/02/17 13:54> - Discharge Clinical Impression: Hyperglycemia, Medication side effect Vomiting Qualifiers: Vomiting type: unspecified Vomiting Intractability: non-intractable Nausea presence: with nausea Qualified Code(s): R11.2 - Nausea with vomiting, unspecified Condition: Stable Disposition: HOME, SELF-CARE Instructions: Neurologist Additional Instructions: You have been treated for elevated blood sugar and given IV fluids. Continue current home medications. Because vomiting started very shortly after taking the [place], I suspect this is a side effect from the medication, do not take [place] anymore. If needed take the morphine prescribed for pain, take Zofran for nausea medication along with it, and take the colace to avoid constipation; if you do not need this simply use the patches given previously. Follow-up with your provider for additional management including your orthopedic surgeon. Return if you worsen including chest pain, abdominal pain, fever, returned vomiting, or any other concerning or worsening symptoms. Prescriptions: Morphine Sulfate [Morphine Ir 15 Mg Tablet] 15 mg PO Q4HP PRN #10 tablet PRN Reason: Docusate Sodium [Colace 100 mg Capsule] 100 mg PO ASDIR PRN #30 capsule PRN Reason: Ondansetron [Zofran Odt 4 mg Tablet] 1 - 2 tab PO Q4H PRN #12 tab.rapdis PRN Reason: For Nausea/Vomiting Referrals: RUFINA LOWRY MD [Primary Care Provider] - Follow up as needed KERRI LINARES MD [NO LOCAL MD] - Follow up as needed
[2017-12-02 05:38] LABS: HEMATOCRIT 40.7 % (37.9-51.0); HEMOGLOBIN 12.9 g/dL (13.5-17.0); MEAN CORPUSCULAR HEMOGLOBIN 24.1 pg (27.0-33.4); MEAN CORPUSCULAR HGB CONC 31.6 g/dL (32.0-36.0); MEAN CORPUSCULAR VOLUME 76 fl (80-97); RED BLOOD COUNT 5.36 10^6/uL (4.35-5.55); RED CELL DISTRIBUTION WIDTH 14.9 % (11.5-14.0); WHITE BLOOD COUNT 13.1 10^3/uL (4.0-10.5)
[2017-12-02 05:46] LABS: ALANINE AMINOTRANSFERASE 41 U/L (21-72); ALBUMIN 3.9 g/dL (3.5-5.0); ALKALINE PHOSPHATASE 87 U/L (38-126); ANION GAP 9 (5-19); ASPARTATE AMINO TRANSFERASE 22 U/L (17-59); BILIRUBIN,DIRECT 0.4 mg/dL (0.0-0.4); BILIRUBIN,TOTAL 0.8 mg/dL (0.2-1.3); BLOOD UREA NITROGEN 44 mg/dL (7-20); CALCIUM 9.9 mg/dL (8.4-10.2); CARBON DIOXIDE 32 mmol/L (22-30); CHLORIDE 101 mmol/L (98-107); GLUCOSE 334 mg/dL (75-110); POTASSIUM 4.5 mmol/L (3.6-5.0); SODIUM 141.7 mmol/L (137-145); TOTAL PROTEIN 6.7 g/dL (6.3-8.2)
[2017-12-02 05:55] LABS: APPEARANCE,URINE CLEAR; BILIRUBIN,URINE NEGATIVE (NEGATIVE); COLOR,URINE YELLOW; GLUCOSE, URINE >=500 mg/dL (NEGATIVE); KETONES,URINE 20 mg/dL (NEGATIVE); LEUKOCYTE ESTERASE,URINE NEGATIVE (NEGATIVE); NITRITE,URINE NEGATIVE (NEGATIVE); PROTEIN,URINE 30 mg/dL (NEGATIVE); URINE SPECIFIC GRAVITY 1.023; UROBILINOGEN,URINE NEGATIVE mg/dL (<2.0)
[2017-12-02 05:57] LABS: ABSOLUTE LYMPHOCYTES# (MANUAL) 0.8 10^3/uL (0.5-4.7); ABSOLUTE MONOCYTES # (MANUAL) 0.1 10^3/uL (0.1-1.4); ABSOLUTE NEUTROPHILS# (MANUAL) 12.2 10^3/uL (1.7-8.2); BASOPHILS % (MANUAL) 0 % (0-2); EOSINOPHILS % (MANUAL) 0 % (0-6); LYMPHOCYTES % (MANUAL) 6 % (13-45); MONOCYTES % (MANUAL) 1 % (3-13); SEGMENTED NEUTROPHILS % (MAN) 93 % (42-78); TOTAL CELLS COUNTED 100
[2017-12-02 06:01] LABS: ANISOCYTOSIS SLIGHT; HYPOCHROMASIA SLIGHT; OVALOCYTES 1+; PLATELET CLUMPS PRESENT; PLATELET COMMENT ADEQUATE; POIKILOCYTOSIS 1+; TOXIC GRANULATION 1+; TOXIC VACUOLATION PRESENT
[2017-12-02 06:02] LABS: PLATELET COUNT 150 10^3/uL (150-450)
[2017-12-02] MEDS ORDERED: INSULIN REG, HUMAN 100 UNIT/ML 3 ML VIAL (PYX) SUBCUT ONE (06:09)
[2017-12-02] MEDS ORDERED: ONDANSETRON ODT 4 MG TAB (6 TAB/ER DISP) PO PRN (06:23)
--- NOTE | 2017-12-02 10:40 | RADIOLOGY REPORT (SQ) ---
EXAM DESCRIPTION: CT HEAD WITHOUT COMPLETED DATE/TIME: 12/02/2017 10:31 am REASON FOR STUDY: dizzyness COMPARISON: 06/16/2017 TECHNIQUE: Axial images acquired through the brain without intravenous contrast. Images reviewed wi th bone, brain and subdural windows. Additional sagittal and coronal reconstructions were generated. Images stored on PACS. All CT scanners at this facility use dose modulation, iterative reconstruction, and/or weight based d osing when appropriate to reduce radiation dose to as low as reasonably achievable (ALARA). [facility]: Dose Right [facility]: CareDose [facility]: Dose Right [facility]: Teradose 4D [facility]: [employer] RADIATION DOSE: CT Rad equipment meets quality standard of care and radiation dose reduction techniq ues were employed. CTDIvol: 53.2 mGy. DLP: 991 mGy-cm. mGy. LIMITATIONS: None. FINDINGS: VENTRICLES: Normal size and contour. CEREBRUM: Mobile stable large arachnoid cyst left occipital lobe. No hemorrhage. No evidence of acu te infarct. CEREBELLUM: No masses. No hemorrhage. No alteration of density. No evidence for acute infarction. EXTRAAXIAL SPACES: No fluid collections. No masses. ORBITS AND GLOBE: No intra- or extraconal masses. Normal contour of globe without masses. CALVARIUM: No fracture. PARANASAL SINUSES: Fluid and mucosal thickening in the maxillary sinuses. SOFT TISSUES: No mass or hematoma. OTHER: No other significant finding. IMPRESSION: Stable arachnoid cyst. No acute findings. EVIDENCE OF ACUTE STROKE: NO. COMMENT: Quality ID # [id number]: Final reports with documentation of one or more dose reduction techniques (e.g., Automated exposure control, adjustment of the mA and/or kV according to patient size, use of iterative reconstruction technique) TECHNICAL DOCUMENTATION: JOB ID: [id number] [employer]- All Rights Reserved Reading location - IP/workstation name: [email or web address]
[2017-12-02 13:32] VITALS: BP 109/54
== END 2017-12-02 14:24 | disposition home or self-care (01) ==
LOC: ER 01:04
DX: T40.2X5A Adverse effect of other opioids, initial encounter (principal); E11.65 Type 2 diabetes mellitus with hyperglycemia; R11.2 Nausea with vomiting, unspecified; I25.10 Atherosclerotic heart disease of native coronary artery without angina pectoris; I25.2 Old myocardial infarction; I10 Essential (primary) hypertension; J44.9 Chronic obstructive pulmonary disease, unspecified; X58.XXXA Exposure to other specified factors, initial encounter
CPT/HCPCS: 99284; 96361; 96374; 36415; 82962; 85025; 80053; 81001; 70450; A9270; J2405; J7030; J1815

== ENCOUNTER 2017-12-08 19:35 | Emergency (ER) | payer MEDICARE, OTHER ==
--- NOTE | 2017-12-08 20:31 | RADIOLOGY REPORT (SQ) ---
EXAM DESCRIPTION: CHEST SINGLE VIEW COMPLETED DATE/TIME: 12/08/2017 8:23 pm REASON FOR STUDY: cough COMPARISON: 06/16/2017 EXAM PARAMETERS: NUMBER OF VIEWS: One view. TECHNIQUE: Single frontal radiographic view of the chest acquired. RADIATION DOSE: NA LIMITATIONS: None. FINDINGS: LUNGS AND PLEURA: No opacities, masses or pneumothorax. No pleural effusion. MEDIASTINUM AND HILAR STRUCTURES: No masses. Contour normal. HEART AND VASCULAR STRUCTURES: Heart normal in size. Normal vasculature. BONES: No acute findings. HARDWARE: Cardiac device. OTHER: No other significant finding. IMPRESSION: NO ACUTE RADIOGRAPHIC FINDING IN THE CHEST. TECHNICAL DOCUMENTATION: JOB ID: [id number] [employer]- All Rights Reserved Reading location - IP/workstation name: [email or web address]
[2017-12-08 20:50] LABS: ABSOLUTE BASOPHILS # (AUTO) 0.1 10^3/uL (0.0-0.2); ABSOLUTE EOSINOPHILS # (AUTO) 0.1 10^3/uL (0.0-0.6); ABSOLUTE MONOCYTES (AUTO) 0.6 10^3/uL (0.1-1.4); ABSOLUTE NEUT (AUTO) 8.8 10^3/uL (1.7-8.2); BASOPHILS % (AUTO) 0.9 % (0-2); EOSINOPHILS % (AUTO) 0.6 % (0-6); HEMATOCRIT 38.4 % (37.9-51.0); HEMOGLOBIN 12.1 g/dL (13.5-17.0); LYMPHOCYTES % (AUTO) 9.5 % (13-45); MEAN CORPUSCULAR HEMOGLOBIN 24.3 pg (27.0-33.4); MEAN CORPUSCULAR HGB CONC 31.5 g/dL (32.0-36.0); MEAN CORPUSCULAR VOLUME 77 fl (80-97); MONOCYTES % (AUTO) 5.6 % (3-13); PLATELET COUNT 161 10^3/uL (150-450); RED BLOOD COUNT 4.97 10^6/uL (4.35-5.55); SEGMENTED NEUTROPHILS % (AUTO) 83.4 % (42-78); TOTAL CELLS COUNTED % (AUTO) 100 %; WHITE BLOOD COUNT 10.5 10^3/uL (4.0-10.5)
[2017-12-08 21:12] LABS: ALANINE AMINOTRANSFERASE 30 U/L (21-72); ALBUMIN 4.3 g/dL (3.5-5.0); ALKALINE PHOSPHATASE 74 U/L (38-126); ANION GAP 5 (5-19); ASPARTATE AMINO TRANSFERASE 35 U/L (17-59); BILIRUBIN,DIRECT 0.4 mg/dL (0.0-0.4); BILIRUBIN,TOTAL 0.8 mg/dL (0.2-1.3); BLOOD UREA NITROGEN 44 mg/dL (7-20); CALCIUM 10.1 mg/dL (8.4-10.2); CARBON DIOXIDE 37 mmol/L (22-30); CHLORIDE 100 mmol/L (98-107); GLUCOSE 227 mg/dL (75-110); POTASSIUM 4.2 mmol/L (3.6-5.0); SODIUM 142.4 mmol/L (137-145); TOTAL PROTEIN 7.4 g/dL (6.3-8.2)
--- NOTE | 2017-12-08 21:26 | ER Document Report ---
ED General - General Chief Complaint: Weakness Stated Complaint: WEAKNESS Time Seen by Provider: 12/08/17 20:06 Notes: Patient is a 67-year-old male with a past medical history of congestive heart failure with a LifeVest in place, hypertension, diabetes with poor control who presents with multiple vague complaints. The patient reports of generalized weakness, some lightheadedness, and feeling generally unwell. He states that the symptoms have been ongoing for the past 12-14 hours. Nothing seems to improve or worsen his symptoms. He notes a history of similar symptoms in the past with high blood sugar. He was seen in urgent care today but referred to the emergency department for further evaluation. He denies any chest pain, shortness of breath, syncope, nausea, vomiting or diarrhea. He denies any focal abdominal pain. No recent changes in medications. TRAVEL OUTSIDE OF THE [place] IN LAST 30 DAYS: No - HPI Onset: This afternoon Onset/Duration: Gradual Quality of pain: No pain Severity: Moderate Pain Level: Denies Associated symptoms: Weakness Exacerbated by: Denies Relieved by: Denies Similar symptoms previously: Yes Recently seen / treated by doctor: Yes - Related Data Allergies/Adverse Reactions: promethazine [From Phenergan] Adverse Reaction (Intermediate, Verified 12/08/17 19:35) Dystonia Past Medical History - General Information source: Patient - Social History Smoking Status: Former Smoker Chew tobacco use (# tins/day): No Frequency of alcohol use: Rare Drug Abuse: None Lives with: Spouse/Significant other Family History: DM, Hypertension Patient has suicidal ideation: No Patient has homicidal ideation: No - Past Medical History Cardiac Medical History: Reports: Hx Atrial Fibrillation - Paroxysmal, Hx Congestive Heart Failure - Systolic; ejection fraction 2017 of approximately 20% ., Hx Coronary Artery Disease, Hx Heart Attack - [place] December 2016, Hx Hypercholesterolemia, Hx Hypertension Denies: Hx DVT, Hx Pulmonary Embolism Pulmonary Medical History: Reports: Hx Bronchitis, Hx COPD - Nightly and as needed 2 L oxygen per nasal cannula, Hx Sleep Apnea - Nasal CPAP; pressure 10 Denies: Hx Asthma Neurological Medical History: Denies: Hx Seizures Endocrine Medical History: Reports: Hx Diabetes Mellitus Type 2. Denies: Hx Diabetes Mellitus Type 1, Hx Hyperthyroidism, Hx Hypothyroidism Renal/ Medical History: Reports: Hx Renal Insufficiency. Denies: Hx Peritoneal Dialysis GI Medical History: Reports: Hx Gastroesophageal Reflux Disease, Hx Colonoscopy , Hx Endoscopy. Denies: Hx Cirrhosis Musculoskeltal Medical History: Reports Hx Arthritis, Reports Hx Gout - Primarily affecting left ankle and foot, Reports Hx Musculoskeletal Deformity - Back pain for 4-5 years Psychiatric Medical History: Denies: Hx Depression Infectious Medical History: Denies: Hx C-Diff, Hx MRSA Past Surgical History: Reports: Hx Cardiac Surgery - DEFIB, Hx Orthopedic Surgery - right rotator cuff - Immunizations Hx Diphtheria, Pertussis, Tetanus Vaccination: Yes Hx Pneumococcal Vaccination: 11/05/13 Review of Systems - Review of Systems Notes: Constitutional: Negative for fever. HENT: Negative for sore throat. Eyes: Negative for visual changes. Cardiovascular: Negative for chest pain. Respiratory: Negative for shortness of breath. Gastrointestinal: Negative for abdominal pain, vomiting or diarrhea. Genitourinary: Negative for dysuria. Musculoskeletal: Negative for back pain. Skin: Negative for rash. Neurological: Negative for headaches, weakness or numbness. 10 point ROS negative except as marked above and in HPI. Physical Exam - Vital signs Vitals: Temp Pulse Resp BP Pulse Ox 98.1 F 54 L 16 117/56 L 95 12/08/17 19:50 12/08/17 19:50 12/08/17 19:50 12/08/17 19:50 12/08/17 19:50 Interpretation: Bradycardic Notes: PHYSICAL EXAMINATION: GENERAL: Well-appearing, well-nourished and in no acute distress. HEAD: Atraumatic, normocephalic. EYES: Pupils equal round and reactive to light, extraocular movements intact, sclera anicteric, conjunctiva are normal. ENT: nares patent, oropharynx clear without exudates. Moist mucous membranes. NECK: Normal range of motion, supple without lymphadenopathy LUNGS: Breath sounds clear to auscultation bilaterally and equal. No wheezes rales or rhonchi. HEART: Regular rate and rhythm without murmurs ABDOMEN: Soft, nontender, normoactive bowel sounds. No guarding, no rebound. No masses appreciated. EXTREMITIES: Normal range of motion, no pitting or edema. No cyanosis. NEUROLOGICAL: No focal neurological deficits. Moves all extremities spontaneously and on command. PSYCH: Normal mood, normal affect. SKIN: Warm, Dry, normal turgor, no rashes or lesions noted. Course - Re-evaluation Re-evalutation: 12/08/17 21:23 Presentation and an overall well-appearing patient in no acute distress who complains of generalized weakness. At time of evaluation, patient's vitals are within normal limits and they are denying any additional acute complaints. Physical examination without focal findings. No neurologic deficits. They deny any chest pain, shortness of breath, nausea, vomiting, or diarrhea. No dysuria or fever. Basic laboratories are unremarkable, chronic kidney disease unchanged. Troponin is also negative. Low clinical suspicion for ACS, occult pneumonia, acute intra-abdominal pathology, stroke, or transient ischemic attack based on clinical history, examination, and laboratories. They have tolerated oral intake without difficulty. I have discussed the importance of close outpatient follow-up as well as the need to return to emergency room immediately should they have any new or worsening symptoms. The patient and surrogate's are in agreement with this plan and verbalized indications for return to emergency department. - Vital Signs Vital signs: Temp Pulse Resp BP Pulse Ox 98.1 F 59 L 15 129/57 H 98 12/08/17 19:50 12/08/17 20:46 12/08/17 22:01 12/08/17 22:01 12/08/17 22:01 - Laboratory Result Diagrams: 12/08/17 20:39 12/08/17 20:39 Laboratory results interpreted by me: 12/08/17 12/08/17 12/08/17 20:39 20:39 20:39 Hgb 12.1 L MCV 77 L MCH 24.3 L MCHC 31.5 L RDW 15.0 H Seg Neutrophils % 83.4 H Lymphocytes % 9.5 L Absolute Neutrophils 8.8 H Carbon Dioxide 37 H BUN 44 H Creatinine 1.84 H Est GFR ( Amer) 44 L Est GFR (Non-Af Amer) 37 L Glucose 227 H Hemoglobin A1c % 11.0 H - Diagnostic Test Radiology reviewed: Image reviewed, Reports reviewed Radiology results interpreted by me: 12/08/17 21:24 Chest x-ray: No acute infiltrate or pneumothorax - EKG Interpretation by Me Additional EKG results interpreted by me: 12/08/17 21:24 Sinus rhythm. Rate 54. No ST elevations or depressions. QTC is 414 Discharge - Discharge Clinical Impression: Renal insufficiency, Weakness, Hyperglycemia Condition: Stable Disposition: HOME, SELF-CARE Additional Instructions: Your labs are overall reassuring today, unchanged from your baseline. Please follow-up with your primary care doctor regarding today's concerns. Follow-up as your blood sugar is chronically elevated and your hemoglobin A1c 11 which is much too high. This is likely contributing to her feelings of weakness and lightheadedness please return to the emergency room immediately if you experience any concerning symptoms including high fevers, severe headache, chest pain, difficulty breathing, abdominal pain, slurred speech, numbness or weakness in your arms or legs, or any other symptom that concerns you.
[2017-12-08 22:14] VITALS: BP 129/57
--- NOTE | 2017-12-08 22:40 | EKG REPORT ---
SEVERITY:- ABNORMAL ECG - SINUS RHYTHM LEFT ANTERIOR FASCICULAR BLOCK BORDERLINE R WAVE PROGRESSION, ANTERIOR LEADS BORDERLINE T ABNORMALITIES, LATERAL LEADS : Confirmed by: Dionicio Mckeon 08-Dec-2017 22:40:05
== END 2017-12-08 22:15 | disposition home or self-care (01) ==
LOC: ER 19:35
DX: N28.9 Disorder of kidney and ureter, unspecified (principal); E11.65 Type 2 diabetes mellitus with hyperglycemia; R53.1 Weakness; I10 Essential (primary) hypertension; R42 Dizziness and giddiness; Z87.891 Personal history of nicotine dependence; I25.10 Atherosclerotic heart disease of native coronary artery without angina pectoris; I25.2 Old myocardial infarction; J44.9 Chronic obstructive pulmonary disease, unspecified
CPT/HCPCS: 36415; 71045; 80053; 83036; 84484; 85025; 93005; 93010; 99285

== ENCOUNTER 2017-12-29 17:46 | Emergency (ER) | payer MEDICARE, OTHER ==
--- NOTE | 2017-12-29 17:58 | ER Document Report ---
HPI - HPI Patient complains to provider of: Exacerbation of chronic left low back pain Onset: This morning Onset/Duration: Persistent, Worse Pain Level: 4 Context: 67-year-old male has chronic right low back pain that radiates into his right buttocks and lateral right thigh. He gets injections from Dr. Horton monthly. He has an appointment in 2 days. He is requesting the injection that he usually gets in the emergency department that works within 15 minutes to stop his pain. There is no new radiculopathy. There is no fever or chills or saddle anesthesia. Looking at his previous records and only injection he has received in the emergency department as dexamethasone. Associated Symptoms: None Exacerbated by: Movement Relieved by: Denies Similar symptoms previously: No Recently seen / treated by doctor: No - ROS ROS below otherwise negative: Yes Systems Reviewed and Negative: Yes All other systems reviewed and negative Past Medical History - General Information source: Patient - Social History Smoking Status: Unknown if Ever Smoked Frequency of alcohol use: None Drug Abuse: None Lives with: Family Family History: DM, Hypertension - Past Medical History Cardiac Medical History: Reports: Hx Atrial Fibrillation - Paroxysmal, Hx Congestive Heart Failure - Systolic; ejection fraction 2017 of approximately 20% ., Hx Coronary Artery Disease, Hx Heart Attack - [place] December 2016, Hx Hypercholesterolemia, Hx Hypertension Pulmonary Medical History: Reports: Hx Bronchitis, Hx COPD - Nightly and as needed 2 L oxygen per nasal cannula, Hx Sleep Apnea - Nasal CPAP; pressure 10 Endocrine Medical History: Reports: Hx Diabetes Mellitus Type 2 Renal/ Medical History: Reports: Hx Renal Insufficiency GI Medical History: Reports: Hx Gastroesophageal Reflux Disease, Hx Colonoscopy , Hx Endoscopy Musculoskeltal Medical History: Reports Hx Arthritis, Reports Hx Gout - Primarily affecting left ankle and foot, Reports Hx Musculoskeletal Deformity - Back pain for 4-5 years Infectious Medical History: Past Surgical History: Reports: Hx Cardiac Surgery - DEFIB, Hx Orthopedic Surgery - right rotator cuff - Immunizations Hx Diphtheria, Pertussis, Tetanus Vaccination: Yes Hx Pneumococcal Vaccination: 11/05/13 Vertical Provider Document - CONSTITUTIONAL Agree With Documented VS: Yes Exam Limitations: No Limitations - INFECTION CONTROL TRAVEL OUTSIDE OF THE [place] IN LAST 30 DAYS: No - HEENT HEENT: Normocephalic - NECK Neck: Supple - RESPIRATORY Respiratory: Breath Sounds Normal, No Respiratory Distress - CARDIOVASCULAR Cardiovascular: Regular Rate, Regular Rhythm Notes: Wearing a life vest - GI/ABDOMEN Gastrointestinal: Abdomen Soft, Abdomen Non-Tender - MUSCULOSKELETAL/EXTREMETIES Musculoskeletal/Extremeties: MAEW, Tender - Right sacral iliac joint area - NEURO Level of Consciousness: Awake Motor/Sensory: No Motor Deficit, No Sensory Deficit - DERM Integumentary: Warm, Dry, No Rash Course - Re-evaluation Re-evalutation: 12/29/17 19:19 I tried to explain to the patient that dexamethasone was the only injection he received in the emergency apartment and it would not work within 15 minutes. I explained that it is a steroid to decrease his inflammation and that he will need to tell Dr. Horton when he sees him in 2 days what he was given in the emergency department. The other medications that he takes at home is Tylenol and gabapentin. Discharge - Discharge Clinical Impression: Exacerbation of chronic RT SI joint pain Condition: Good Disposition: HOME, SELF-CARE Instructions: Low Back Pain ([facility]), Steroid Medication Injection, Warm Packs ( [facility]) Additional Instructions: Tell your Dr. Horton when you see him in 2 days that you were given Decadron 10 mg IM in the Emergency Department warm compress to er if worse Referrals: RUFINA LOWRY MD [Primary Care Provider] - Follow up as needed
[2017-12-29 18:03] VITALS: BP 130/54
[2017-12-29] MEDS ORDERED: DEXAMETHASONE SOD PHOS INJ 10 MG/1 ML VIAL IM ONE (18:25)
== END 2017-12-29 18:45 | disposition home or self-care (01) ==
LOC: ER 17:46
DX: M53.3 Sacrococcygeal disorders, not elsewhere classified (principal); M54.5 Low back pain; G89.29 Other chronic pain; I48.91 Unspecified atrial fibrillation
CPT/HCPCS: 99283; 96372; J1100

== ENCOUNTER 2017-12-30 12:49 | Emergency (ER) | payer MEDICARE, OTHER ==
[2017-12-30] MEDS ORDERED: HYDROMORPHONE HCL INJ/PF 2 MG/ML AMPULE IM ONE ×2 (13:51→14:35)
--- NOTE | 2017-12-30 14:38 | ER Document Report ---
ED General - General Chief Complaint: Back Pain Stated Complaint: LOW BACK PAIN RIGHT SIDE Time Seen by Provider: 12/30/17 13:19 Mode of Arrival: Medic Information source: Patient, PENDING SALE TO [facility] Records Notes: 67-year-old male history of chronic back pain with complaints of acute exacerbation. Patient notes he comes to the emergency department often where he is given pain control and sent home, he notes that he is told to follow-up with his primary care physician went with to see the primary care physician this morning was in severe pain who sent him back to the emergency department for evaluation. Patient does go to the [facility] where they do injections and testing on him and he has an appointment tomorrow. He denies any neurological deficits denies any cauda equina concerns states his pain is chronic just worse today TRAVEL OUTSIDE OF THE [place] IN LAST 30 DAYS: No - HPI Onset: Other Onset/Duration: Sudden, Intermittent, Waxing and waning Quality of pain: Sharp Severity: Moderate Pain Level: 4 Associated symptoms: Body/muscle aches Exacerbated by: Movement Relieved by: Other - Pain medication Similar symptoms previously: No Recently seen / treated by doctor: No - Related Data Allergies/Adverse Reactions: promethazine [From Phenergan] Adverse Reaction (Intermediate, Verified 12/08/17 19:35) Dystonia Past Medical History - Social History Smoking Status: Never Smoker Cigarette use (# per day): No Chew tobacco use (# tins/day): No Smoking Education Provided: No Frequency of alcohol use: None Drug Abuse: None Family History: DM, Hypertension Patient has suicidal ideation: No Patient has homicidal ideation: No - Past Medical History Cardiac Medical History: Reports: Hx Atrial Fibrillation - Paroxysmal, Hx Congestive Heart Failure - Systolic; ejection fraction 2017 of approximately 20% ., Hx Coronary Artery Disease, Hx Heart Attack - [place] December 2016, Hx Hypercholesterolemia, Hx Hypertension Denies: Hx DVT, Hx Pulmonary Embolism Pulmonary Medical History: Reports: Hx Bronchitis, Hx COPD - Nightly and as needed 2 L oxygen per nasal cannula, Hx Sleep Apnea - Nasal CPAP; pressure 10 Denies: Hx Asthma Neurological Medical History: Denies: Hx Seizures Endocrine Medical History: Reports: Hx Diabetes Mellitus Type 2. Denies: Hx Diabetes Mellitus Type 1, Hx Hyperthyroidism, Hx Hypothyroidism Renal/ Medical History: Reports: Hx Renal Insufficiency. Denies: Hx Peritoneal Dialysis GI Medical History: Reports: Hx Gastroesophageal Reflux Disease, Hx Colonoscopy , Hx Endoscopy. Denies: Hx Cirrhosis Musculoskeltal Medical History: Reports Hx Arthritis, Reports Hx Gout - Primarily affecting left ankle and foot, Reports Hx Musculoskeletal Deformity - Back pain for 4-5 years Psychiatric Medical History: Denies: Hx Depression Infectious Medical History: Denies: Hx C-Diff, Hx MRSA Past Surgical History: Reports: Hx Cardiac Surgery - DEFIB, Hx Orthopedic Surgery - right rotator cuff - Immunizations Hx Diphtheria, Pertussis, Tetanus Vaccination: Yes Hx Pneumococcal Vaccination: 11/05/13 Review of Systems - Review of Systems Notes: REVIEW OF SYSTEMS: CONSTITUTIONAL : Denies fever, chills, or sweats. Denies recent illness. EENT: Denies eye, ear, throat, or mouth pain or symptoms. Denies nasal or sinus congestion or discharge. Denies throat, tongue, or mouth swelling or difficulty swallowing. CARDIOVASCULAR: Denies chest pain. Denies palpitations or racing or irregular heart beat. Denies ankle edema. RESPIRATORY: Denies cough, cold, or chest congestion. Denies shortness of breath, difficulty breathing, or wheezing. GASTROINTESTINAL: Denies abdominal pain or distention. Denies nausea, vomiting , or diarrhea. Denies blood in vomitus, stools, or per rectum. Denies black, tarry stools. Denies constipation. GENITOURINARY: Denies difficulty urinating, painful urination, burning, frequency, blood in urine, or discharge. MUSCULOSKELETAL: Admits to back pain SKIN: Denies rash, lesions or sores. HEMATOLOGIC : Denies easy bruising or bleeding. LYMPHATIC: Denies swollen, enlarged glands. NEUROLOGICAL: Denies confusion or altered mental status. Denies passing out or loss of consciousness. Denies dizziness or lightheadedness. Denies headache. Denies weakness or paralysis or loss of use of either side. Denies problems with gait or speech. Denies sensory loss, numbness, or tingling. Denies seizures. PSYCHIATRIC: Denies anxiety or stress. Denies depression, suicidal ideation, or homicidal ideation. ALL OTHER SYSTEMS REVIEWED AND NEGATIVE. Dictation was performed using [employer] recognition software PHYSICAL EXAMINATION: GENERAL: Patient is in acute distress secondary to pain crying HEAD: Atraumatic, normocephalic. EYES: Pupils equal round and reactive to light, extraocular movements intact, sclera anicteric, conjunctiva are normal. ENT: Nares patent, oropharynx clear without exudates. Moist mucous membranes. NECK: Normal range of motion, supple without lymphadenopathy LUNGS: Breath sounds clear to auscultation bilaterally and equal. No wheezes rales or rhonchi. HEART: Regular rate and rhythm without murmurs ABDOMEN: Soft, nontender, nondistended abdomen. No guarding, no rebound. No masses appreciated. Musculoskeletal: Generalized tenderness of his back admits to generalized spasming NEUROLOGICAL: Cranial nerves grossly intact. Normal speech, normal gait. Normal sensory, motor exams PSYCH: Normal mood, normal affect. SKIN: Warm, Dry, normal turgor, no rashes or lesions noted. Physical Exam - Vital signs Vitals: Temp Pulse Resp BP Pulse Ox 98.1 F 73 18 94/57 L 95 12/30/17 13:03 12/30/17 13:03 12/30/17 13:03 12/30/17 13:03 12/30/17 13:03 Course - Re-evaluation Re-evalutation: 12/30/17 19:40 Patient's presentation is most consistent with acute exacerbation of his back pain, he was given pain control and notes he feels much better, he does have an appointment with his surgical center tomorrow and has documentation proving this , therefore I do feel that his pain is quite legitimate After performing a Medical Screening Examination, I estimate there is LOW risk for EXPANDING OR RUPTURED ABDOMINAL AORTIC ANEURYSM, CAUDA EQUINA SYNDROME, EPIDURAL MASS LESION, or HERNIATED DISK CAUSING SEVERE SPINAL STENOSIS, thus I consider the discharge disposition reasonable. I have reevaluated this patient multiple times and no significant life threatening changes are noted. The patient and I have discussed the diagnosis and risks, and we agree with discharging home and close follow-up. We also discussed returning to the Emergency Department immediately if new or worsening symptoms occur with the understanding that symptoms and presentations can change. We have discussed the symptoms which are most concerning (e.g., saddle anesthesia, urinary or bowel incontinence or retention, changing or worsening pain) that necessitate immediate return. - Vital Signs Vital signs: Temp Pulse Resp BP Pulse Ox 98.0 F 60 18 106/46 L 95 12/30/17 14:47 12/30/17 14:47 12/30/17 14:47 12/30/17 14:47 12/30/17 14:47 Discharge - Discharge Clinical Impression: Acute exacerbation of chronic low back pain Condition: Stable Disposition: HOME, SELF-CARE Additional Instructions: Please follow-up with the surgical clinic tomorrow return immediately if any other concerns Referrals: RUFINA LOWRY MD [Primary Care Provider] - Follow up as needed
[2017-12-30 14:52] VITALS: BP 106/46
== END 2017-12-30 14:52 | disposition home or self-care (01) ==
LOC: ER 12:49
DX: G89.29 Other chronic pain (principal); M54.5 Low back pain; R25.2 Cramp and spasm; I48.91 Unspecified atrial fibrillation; I10 Essential (primary) hypertension; I25.10 Atherosclerotic heart disease of native coronary artery without angina pectoris; J44.9 Chronic obstructive pulmonary disease, unspecified; E11.9 Type 2 diabetes mellitus without complications; Z95.810 Presence of automatic (implantable) cardiac defibrillator
CPT/HCPCS: 99283; 96372; J1170

== ENCOUNTER 2018-01-15 01:53 | Emergency (ER) | payer MEDICARE, OTHER ==
[2018-01-15] MEDS ORDERED: NORMAL SALINE 1000 ML 1,000 ML IV ONE (02:06)
[2018-01-15 02:20] LABS: ABSOLUTE BASOPHILS # (AUTO) 0.1 10^3/uL (0.0-0.2); ABSOLUTE LYMPHOCYTES (AUTO) 1.3 10^3/uL (0.5-4.7); ABSOLUTE MONOCYTES (AUTO) 0.7 10^3/uL (0.1-1.4); ABSOLUTE NEUT (AUTO) 5.1 10^3/uL (1.7-8.2); BASOPHILS % (AUTO) 1.7 % (0-2); EOSINOPHILS % (AUTO) 0.6 % (0-6); HEMATOCRIT 31.6 % (37.9-51.0); HEMOGLOBIN 10.1 g/dL (13.5-17.0); LYMPHOCYTES % (AUTO) 17.6 % (13-45); MEAN CORPUSCULAR VOLUME 78 fl (80-97); MONOCYTES % (AUTO) 9.3 % (3-13); PLATELET COUNT 110 10^3/uL (150-450); RED BLOOD COUNT 4.06 10^6/uL (4.35-5.55); RED CELL DISTRIBUTION WIDTH 16.5 % (11.5-14.0); SEGMENTED NEUTROPHILS % (AUTO) 70.8 % (42-78); TOTAL CELLS COUNTED % (AUTO) 100 %; WHITE BLOOD COUNT 7.2 10^3/uL (4.0-10.5)
[2018-01-15 02:44] LABS: ALANINE AMINOTRANSFERASE 38 U/L (21-72); ALBUMIN 3.6 g/dL (3.5-5.0); ALKALINE PHOSPHATASE 54 U/L (38-126); ANION GAP 9 (5-19); ASPARTATE AMINO TRANSFERASE 20 U/L (17-59); BILIRUBIN,DIRECT 0.3 mg/dL (0.0-0.4); BILIRUBIN,TOTAL 0.4 mg/dL (0.2-1.3); BLOOD UREA NITROGEN 46 mg/dL (7-20); CALCIUM 9.3 mg/dL (8.4-10.2); CARBON DIOXIDE 34 mmol/L (22-30); CHLORIDE 97 mmol/L (98-107); GLUCOSE 373 mg/dL (75-110); POTASSIUM 4.7 mmol/L (3.6-5.0); SODIUM 140.4 mmol/L (137-145); TOTAL PROTEIN 5.9 g/dL (6.3-8.2)
[2018-01-15 02:54] LABS: APPEARANCE,URINE CLEAR; BILIRUBIN,URINE NEGATIVE (NEGATIVE); COLOR,URINE STRAW; GLUCOSE, URINE >=500 mg/dL (NEGATIVE); KETONES,URINE NEGATIVE (NEGATIVE); LEUKOCYTE ESTERASE,URINE NEGATIVE (NEGATIVE); NITRITE,URINE NEGATIVE (NEGATIVE); PROTEIN,URINE NEGATIVE (NEGATIVE); UROBILINOGEN,URINE NEGATIVE mg/dL (<2.0)
[2018-01-15 03:49] LABS: VENOUS BLOOD BASE EXCESS 4.7 mmol/L; VENOUS BLOOD HCO3 31.1 mmol/L (20-32); VENOUS BLOOD PCO2 55.8 mmHg (35-63); VENOUS BLOOD PH 7.36 (7.30-7.42)
[2018-01-15 04:19] LABS: CREATINE KINASE MB 1.21 ng/mL (<4.55); TROPONIN I 0.024 ng/mL
--- NOTE | 2018-01-15 05:34 | ER Document Report ---
ED Blood Sugar Problem - General Chief Complaint: High Blood Sugar Stated Complaint: HIGH BLOOD SUGAR Time Seen by Provider: 01/15/18 02:09 Mode of Arrival: Ambulatory Information source: Patient Notes: Patient is a 67-year-old male who presents with complaints of high blood sugar. Patient reports he has been having trouble with his blood sugars ever since he started taking corticosteroids injections to his back. Patient reports past medical history of CHF which he wears a LifeVest for due to an ejection fraction of 33%, hypertension and diabetes. Patient reports that at about 00 30 he took his normal nightly dose of Lantus which is 20 units. Just prior to arrival patient states that his blood sugar was high, he felt diaphoretic and stated he felt a little faint suicide to lie down. Patient states while he was lying down he passed out for a few moments. Patient states that he woke up on his own. Patient denies any other symptoms, denies any nausea, vomiting, diarrhea or fever. Patient reports that he saw his animal nurse 3 days ago and his cardiology tech yesterday. Patient reports that he has had some peripheral edema lately but his animal nurse is aware of this and states that they have not made any changes to his medications. Patient denies any shortness of breath. TRAVEL OUTSIDE OF THE [place] IN LAST 30 DAYS: No - Related Data Allergies/Adverse Reactions: promethazine [From Phenergan] Adverse Reaction (Intermediate, Verified 12/08/17 19:35) Dystonia Past Medical History - General Information source: Patient - Social History Smoking Status: Unknown if Ever Smoked Chew tobacco use (# tins/day): No Frequency of alcohol use: None Drug Abuse: None Family History: DM, Hypertension Patient has suicidal ideation: No Patient has homicidal ideation: No - Past Medical History Cardiac Medical History: Reports: Hx Atrial Fibrillation - Paroxysmal, Hx Congestive Heart Failure - Systolic; ejection fraction 2017 of approximately 20% ., Hx Coronary Artery Disease, Hx Heart Attack - [place] December 2016, Hx Hypercholesterolemia, Hx Hypertension Denies: Hx DVT, Hx Pulmonary Embolism Pulmonary Medical History: Reports: Hx Bronchitis, Hx COPD - Nightly and as needed 2 L oxygen per nasal cannula, Hx Sleep Apnea - Nasal CPAP; pressure 10 Denies: Hx Asthma Neurological Medical History: Denies: Hx Seizures Endocrine Medical History: Reports: Hx Diabetes Mellitus Type 2. Denies: Hx Diabetes Mellitus Type 1, Hx Hyperthyroidism, Hx Hypothyroidism Renal/ Medical History: Reports: Hx Renal Insufficiency. Denies: Hx Peritoneal Dialysis GI Medical History: Reports: Hx Gastroesophageal Reflux Disease, Hx Colonoscopy , Hx Endoscopy. Denies: Hx Cirrhosis Musculoskeltal Medical History: Reports Hx Arthritis, Reports Hx Gout - Primarily affecting left ankle and foot, Reports Hx Musculoskeletal Deformity - Back pain for 4-5 years Psychiatric Medical History: Denies: Hx Depression Infectious Medical History: Denies: Hx C-Diff, Hx MRSA Past Surgical History: Reports: Hx Cardiac Surgery - DEFIB, Hx Orthopedic Surgery - right rotator cuff - Immunizations Hx Diphtheria, Pertussis, Tetanus Vaccination: Yes Hx Pneumococcal Vaccination: 11/05/13 Review of Systems - Review of Systems Constitutional: See HPI EENT: No symptoms reported Cardiovascular: No symptoms reported Respiratory: No symptoms reported Gastrointestinal: No symptoms reported Genitourinary: No symptoms reported Male Genitourinary: No symptoms reported Musculoskeletal: No symptoms reported Skin: No symptoms reported Hematologic/Lymphatic: No symptoms reported Neurological/Psychological: No symptoms reported Physical Exam - Vital signs Vitals: Resp Pulse Ox 18 98 01/15/18 02:02 01/15/18 02:02 - Notes Notes: PHYSICAL EXAMINATION: GENERAL: Well-appearing, well-nourished and in no acute distress. HEAD: Atraumatic, normocephalic. EYES: Pupils equal round and reactive to light, extraocular movements intact, sclera anicteric, conjunctiva are normal. ENT: Nares patent, oropharynx clear without exudates. Moist mucous membranes. NECK: Normal range of motion, supple without lymphadenopathy LUNGS: Breath sounds clear to auscultation bilaterally and equal. No wheezes rales or rhonchi. HEART: Regular rate and rhythm without murmurs. ABDOMEN: Soft, nontender, nondistended abdomen. No guarding, no rebound. No masses appreciated. Musculoskeletal: Normal range of motion, 2+ pitting edema. No cyanosis. NEUROLOGICAL: Cranial nerves grossly intact. Normal speech, normal gait. Normal sensory, motor exams PSYCH: Normal mood, normal affect. SKIN: Warm, Dry, normal turgor, no rashes or lesions noted. Course - Re-evaluation Re-evalutation: Very articulate 67-year-old male presents with complaints of syncopal episode and high blood sugar. Patient reports that this is been an ongoing issue with his blood sugars ever since he started taking steroid injections in his back. Patient reports that tonight he felt like he was going to pass out and became diaphoretic so he decided to lie down. Patient states that at that point he passed out but did not fall and had no injury. Patient states he woke up within a few moments. Patient is wearing a life vest for his apparent severe CHF. Patient reports his last ejection fraction was 33%. Patient reports saw his animal nurse 3, Dr. Lowry, 3 days ago and saw his cardiology tech, Dr. Hoang, yesterday. Patient's workup is unremarkable. Chest x-ray is normal. Head CT shows no acute abnormalities. EKG is unchanged from previous, sinus rhythm, with no ST segment elevations or depressions. CBC is unremarkable. Urinalysis shows glucose. Chemistry is unchanged from patient's baseline with mildly elevated BUN and creatinine. Cardiac enzymes are negative 2. Patient's vital signs are stable during ER stay. Patient has had occasional episodes of moderate hypotension however patient states his normal blood pressure systolic is in the 90s. Patient remains asymptomatic during his stay and denies any complaints whatsoever. Patient's is at bedside and patient feels safe for discharge. Patient medically cleared, copies of his labs provided per his request and patient states he will be following up with his primary care provider later on today. - Vital Signs Vital signs: Temp Pulse Resp BP Pulse Ox 18 109/62 100 01/15/18 06:53 01/15/18 06:53 01/15/18 06:53 - Laboratory Result Diagrams: 01/15/18 02:12 01/15/18 02:12 Laboratory results interpreted by me: 01/15/18 01/15/18 01/15/18 02:12 02:12 02:34 RBC 4.06 L Hgb 10.1 L Hct 31.6 L MCV 78 L MCH 25.0 L RDW 16.5 H Plt Count 110 L Chloride 97 L Carbon Dioxide 34 H BUN 46 H Creatinine 2.17 H Est GFR ( Amer) 37 L Est GFR (Non-Af Amer) 30 L Glucose 373 H POC Glucose NT-Pro-B Natriuret Pep Total Protein 5.9 L Urine Glucose (UA) >=500 H 01/15/18 01/15/18 03:30 04:38 RBC Hgb Hct MCV MCH RDW Plt Count Chloride Carbon Dioxide BUN Creatinine Est GFR ( Amer) Est GFR (Non-Af Amer) Glucose POC Glucose 328 H NT-Pro-B Natriuret Pep 1000 H Total Protein Urine Glucose (UA) Discharge - Discharge Clinical Impression: Hyperglycemia Syncope Qualifiers: Syncope type: unspecified Qualified Code(s): R55 - Syncope and collapse Condition: Stable Disposition: HOME, SELF-CARE Additional Instructions: Hyperglycemia (High Blood Sugar) You have an abnormally high blood sugar. Not all high blood sugar requires long-term treatment. High blood sugar can be due to medications, , or the stress of illness. (These cases are "borderline diabetes.") If the doctor feels your high blood sugar might resolve with time, you may not require treatment now. You will be scheduled for further evaluation. It's very important that you follow through, to see if the blood sugar returns to normal levels. Uncontrolled high blood sugar leads to early heart disease, strokes, nerve damage, eye damage, and kidney damage. Call the physician if there is faintness, excess sleepiness, or very rapid breathing. Syncopal Episode Syncope (fainting or near-fainting) can occur from many different health problems. Or it can be a simple fainting spell requiring no treatment. It is safe for you to go home, but further evaluation will likely be necessary. Your work-up may include tests for internal bleeding, heart disease, medication problems, or near-strokes. Tests are not always required, however, depending on the nature of your problem. The warning signs of an impending faint include: dizziness, lightheadedness , nausea, hot flashes, tingling, and weakness. If this happens, lay down and put your feet up, then wait until all of these symptoms have passed before standing up again. If these episodes become recurrent, or if you develop chest pain, heart palpitations, mental confusion, blurred vision, or headache, then you should call the physician, or go to the emergency room. Your workup today was unremarkable. Urine chest x-ray showed no signs of any infection or pneumonia. Your head CT showed no abnormalities. Your glucose was elevated when you came in however it has trended down over your stay. We ayah 2 sets of cardiac enzymes to check for any acute cardiac event such as heart attack and and they were both normal. I have printed copies of all of your labs from today's visit for your review. Please return to the emergency department if you are not able to control your blood sugars, you pass out again you develop chest pain, shortness of breath or any other symptoms concerning to you. Referrals: RUFINA LOWRY MD [Primary Care Provider] - Follow up as needed
[2018-01-15] MEDS ORDERED: INSULIN REG, HUMAN 100 UNIT/ML 3 ML VIAL (PYX) SUBCUT ONE (05:36)
--- NOTE | 2018-01-15 06:09 | RADIOLOGY REPORT (SQ) ---
EXAM DESCRIPTION: CT HEAD WITHOUT IV CONTRAST CLINICAL HISTORY: 67 years Male, Syncope COMPARISON: 3.28.18 TECHNIQUE: No contrast. Coronal and sagittal reformat. This exam was performed according to our departmental dose-optimization program, which includes automated exposure control, adjustment of the mA and/or kV according to patient size and/or use of iterative reconstruction technique. FINDINGS: No hemorrhage or infarct. No mass, mass effect, or midline shift. Large parieto-occipital arachnoid cyst pattern, stable. Atherosclerosis. Brain and extra-axial structures appear otherwise intact. IMPRESSION: No acute findings.
--- NOTE | 2018-01-15 06:10 | RADIOLOGY REPORT (SQ) ---
EXAM DESCRIPTION: XR CHEST 1 VIEW CLINICAL HISTORY: 67 years Male, Eval for CHF, chest pain and SOB COMPARISON: 4.3.18. NUMBER OF VIEWS/TECHNIQUE: 1/AP FINDINGS: Adequate lung volume, clear parenchyma, normal cardiac silhouette, right distal clavicular resection, and intact bony thorax. IMPRESSION: No acute cardiopulmonary findings.
[2018-01-15 06:55] VITALS: BP 109/62
--- NOTE | 2018-01-15 07:49 | EKG REPORT ---
SEVERITY:- ABNORMAL ECG - SINUS RHYTHM LEFT ANTERIOR FASCICULAR BLOCK BORDERLINE T ABNORMALITIES, LATERAL LEADS : Confirmed by: Alfie López MD 15-Jan-2018 07:48:23
== END 2018-01-15 07:10 | disposition home or self-care (01) ==
LOC: ER 01:53
DX: E11.65 Type 2 diabetes mellitus with hyperglycemia (principal); Z79.4 Long term (current) use of insulin; I11.0 Hypertensive heart disease with heart failure; I50.20 Unspecified systolic (congestive) heart failure; Z95.811 Presence of heart assist device; R55 Syncope and collapse; I25.10 Atherosclerotic heart disease of native coronary artery without angina pectoris; J44.9 Chronic obstructive pulmonary disease, unspecified; Z95.810 Presence of automatic (implantable) cardiac defibrillator
CPT/HCPCS: 93005; 99285; 36415; 82553; 82962; 82550; 85025; 80053; 81001; 84484; 82803; 83880; 71045; 70450; 93010; A9270; J1815

== ENCOUNTER 2018-02-11 08:59 | Emergency (ER) | payer MEDICARE, OTHER ==
[2018-02-11 09:10] VITALS: BP 103/51
[2018-02-11] MEDS ORDERED: DEXAMETHASONE SOD PHOS INJ 10 MG/1 ML VIAL IM ONE (10:02)
[2018-02-11] MEDS ORDERED: MORPHINE SULFATE 10 MG/ML INJ IM ONE (10:02)
--- NOTE | 2018-02-11 10:04 | ER Document Report ---
ED General - General Chief Complaint: Back Pain Stated Complaint: LOW BACK PAIN Time Seen by Provider: 02/11/18 09:17 Notes: 67-year-old male to the emergency department via ambulance from complaint complaints of low back pain. States has chronic low back pain. Was supposed to see Dr. Horton with pain management today but his pain was too severe so came in here instead. This is happened on one prior occasion as well. Denies any change in bowel or bladder function. No loss of sensation. Pain located in the lumbar spine region. No fever. No rash. No numbness below the waist [employer] voice dictation system was used in the transcribing of this medical document. There may be contextual errors in the extrusion line operator which are not actual representations of the patient's history of present illness, physical exam or medical treatment and decision making plans. TRAVEL OUTSIDE OF THE [place] IN LAST 30 DAYS: No - HPI Onset/Duration: Gradual, Worse Quality of pain: Achy Severity: Severe Pain Level: 4 Associated symptoms: None - Related Data Allergies/Adverse Reactions: promethazine [From Phenergan] Adverse Reaction (Intermediate, Verified 02/11/18 09:23) [place] Past Medical History - General Information source: Patient - Social History Smoking Status: Current Every Day Smoker Chew tobacco use (# tins/day): No Frequency of alcohol use: Occasional Drug Abuse: None Lives with: Alone Family History: DM, Hypertension Patient has suicidal ideation: No Patient has homicidal ideation: No - Past Medical History Cardiac Medical History: Reports: Hx Atrial Fibrillation - Paroxysmal, Hx Congestive Heart Failure - Systolic; ejection fraction 2017 of approximately 20% ., Hx Coronary Artery Disease, Hx Heart Attack - [place] December 2016, Hx Hypercholesterolemia, Hx Hypertension Denies: Hx DVT, Hx Pulmonary Embolism Pulmonary Medical History: Reports: Hx Bronchitis, Hx COPD - Nightly and as needed 2 L oxygen per nasal cannula, Hx Sleep Apnea - Nasal CPAP; pressure 10 Denies: Hx Asthma Neurological Medical History: Denies: Hx Seizures Endocrine Medical History: Reports: Hx Diabetes Mellitus Type 2. Denies: Hx Diabetes Mellitus Type 1, Hx Hyperthyroidism, Hx Hypothyroidism Renal/ Medical History: Reports: Hx Renal Insufficiency. Denies: Hx Peritoneal Dialysis GI Medical History: Reports: Hx Gastroesophageal Reflux Disease, Hx Colonoscopy , Hx Endoscopy. Denies: Hx Cirrhosis Musculoskeltal Medical History: Reports Hx Arthritis, Reports Hx Gout - Primarily affecting left ankle and foot, Reports Hx Musculoskeletal Deformity - Back pain for 4-5 years Psychiatric Medical History: Denies: Hx Depression Infectious Medical History: Denies: Hx C-Diff, Hx MRSA Past Surgical History: Reports: Hx Cardiac Surgery - DEFIB, Hx Orthopedic Surgery - right rotator cuff - Immunizations Hx Diphtheria, Pertussis, Tetanus Vaccination: Yes Hx Pneumococcal Vaccination: 11/05/13 Review of Systems - Review of Systems Constitutional: No symptoms reported EENT: No symptoms reported Cardiovascular: No symptoms reported Respiratory: No symptoms reported Gastrointestinal: No symptoms reported Genitourinary: No symptoms reported Male Genitourinary: No symptoms reported Musculoskeletal: Back pain, Muscle stiffness. denies: Joint pain, Joint swelling, Muscle pain Skin: No symptoms reported Hematologic/Lymphatic: No symptoms reported Neurological/Psychological: No symptoms reported Physical Exam - Vital signs Vitals: Temp Pulse Resp BP Pulse Ox 98.8 F 59 L 16 103/51 L 97 02/11/18 09:08 02/11/18 09:08 02/11/18 09:08 02/11/18 09:08 02/11/18 09:08 Interpretation: Normal - General General appearance: Appears well, Alert - HEENT Head: Normocephalic, Atraumatic Eyes: Normal Pupils: PERRL - Respiratory Respiratory status: No respiratory distress Chest status: Nontender Breath sounds: Normal Chest palpation: Normal - Cardiovascular Rhythm: Regular Heart sounds: Normal auscultation Murmur: No - Abdominal Inspection: Normal Distension: No distension Bowel sounds: Normal Tenderness: Nontender Organomegaly: No organomegaly - Rectal Tenderness: No Notes: Perirectal sensation intact. - Back Back: Normal, Tender. No: Deformity/step-off, CVA tenderness, Vertebra tenderness, Scoliosis - Negative straight leg - Extremities General upper extremity: Normal inspection, Nontender, Normal color, Normal ROM , Normal temperature General lower extremity: Normal inspection, Nontender, Normal color, Normal ROM , Normal temperature, Normal weight bearing. No: Susan's sign - Neurological Neuro grossly intact: Yes Cognition: Normal Orientation: AAOx4 Elen Coma Scale Eye Opening: Spontaneous Elen Coma Scale Verbal: Oriented Dingess Coma Scale Motor: Obeys Commands Dingess Coma Scale Total: 15 Speech: Normal Motor strength normal: LUE, RUE, LLE, RLE Sensory: Normal - Psychological Associated symptoms: Normal affect, Normal mood - Skin Skin Temperature: Warm Skin Moisture: Dry Skin Color: Normal Course - Re-evaluation Re-evalutation: 02/11/18 11:17 CT scan ordered of the lumbar spine to rule out any kind of mass or bony lesions. That was negative. Steroid and morphine given. Will DC at this time for his chronic back pain. This time I find no significant risk for cauda equina syndrome. There is no concern in my mind as well for spinal abscess or epidural abscess. Red flag warning signs were given with regards to back pain. Patient verbalized understanding of these instructions and will be discharged in stable condition. 02/11/18 11:[address] 02/11/18 10:01 IMPRESSION: MULTILEVEL DEGENERATIVE CHANGES. NO APPARENT ACUTE FINDINGS. - Vital Signs Vital signs: Temp Pulse Resp BP Pulse Ox 98.8 F 59 L 16 103/51 L 97 02/11/18 09:08 02/11/18 09:08 02/11/18 09:08 02/11/18 09:08 02/11/18 09:08 Discharge - Discharge Clinical Impression: Chronic low back pain Qualifiers: Back pain laterality: midline Sciatica presence: without sciatica Qualified Code(s): M54.5 - Low back pain; G89.29 - Other chronic pain; G89.29 - Other chronic pain Condition: Good Disposition: HOME, SELF-CARE Instructions: Low Back Pain ([facility]) Additional Instructions: In the event that you develop any fever, numbness below the waist, loss of bowel function, inability to urinate, numbness, tingling or loss of sensation of your legs or inability to walk please return immediately. Please follow-up with your pain management doctor as well as your regular doctor for repeat evaluation and treatment. Referrals: RUFINA LOWRY MD [Primary Care Provider] - Follow up as needed
--- NOTE | 2018-02-11 11:14 | RADIOLOGY REPORT (SQ) ---
EXAM DESCRIPTION: CT LUMBAR SPINE WITHOUT COMPLETED DATE/TIME: 02/11/2018 11:01 am REASON FOR STUDY: low back pain COMPARISON: CT abdomen and pelvis dated 12/11/2016. TECHNIQUE: Axial images acquired through the lumbar spine without intravenous contrast. Images revi ewed with lung, soft tissue and bone windows. Reconstructed coronal and sagittal MPR images reviewed . All images stored on PACS. All CT scanners at this facility use dose modulation, iterative reconstruction, and/or weight based d osing when appropriate to reduce radiation dose to as low as reasonably achievable (ALARA). [facility]: Dose Right [facility]: CareDose [facility]: Dose Right [facility]: Teradose 4D [facility]: [employer] RADIATION DOSE: mGy. LIMITATIONS: None. FINDINGS: SEGMENTATION: Normal. No transitional anatomy. ALIGNMENT: Normal. VERTEBRAL BODIES: No fractures. No dislocation. No acute findings. DISCS: Multilevel disc space narrowing with endplate sclerosis and osteophytes. Study limited by lac k of intrathecal contrast. PEDICLES, TRANSVERSE PROCESSES: No fractures. No dislocation. No acute findings. FACETS, POSTERIOR ELEMENTS: Multilevel facet arthropathy. No fractures. No dislocation. No spinal stenosis. HARDWARE: None in the spine. VISUALIZED RIBS: No fractures. SOFT TISSUES: No significant or acute finding in adjacent soft tissues. OTHER: Parapelvic cyst in the left kidney with curvilinear calcification in the wall, unchanged martine red to CT abdomen dated 12/11/2016. No other significant finding. IMPRESSION: MULTILEVEL DEGENERATIVE CHANGES. NO APPARENT ACUTE FINDINGS. TECHNICAL DOCUMENTATION: JOB ID: [id number] Quality ID # [id number]: Final reports with documentation of one or more dose reduction techniques (e.g., Au tomated exposure control, adjustment of the mA and/or kV according to patient size, use of iterative reconstruction technique) 2010 [employer]- All Rights Reserved Reading location - IP/workstation name: [email or web address]
[2018-02-11] MEDS ORDERED: KETOROLAC TROMETHAMINE 60 MG/2 ML SDV IM ONE (11:24)
[2018-02-11 12:36] LABS: APPEARANCE,URINE CLEAR; BILIRUBIN,URINE NEGATIVE (NEGATIVE); COLOR,URINE STRAW; GLUCOSE, URINE NEGATIVE (NEGATIVE); KETONES,URINE NEGATIVE (NEGATIVE); LEUKOCYTE ESTERASE,URINE NEGATIVE (NEGATIVE); NITRITE,URINE NEGATIVE (NEGATIVE); PROTEIN,URINE NEGATIVE (NEGATIVE); URINE SPECIFIC GRAVITY 1.008; UROBILINOGEN,URINE NEGATIVE mg/dL (<2.0)
== END 2018-02-11 12:15 | disposition home or self-care (01) ==
LOC: ER 08:59
DX: M54.5 Low back pain (principal); G89.29 Other chronic pain; F17.200 Nicotine dependence, unspecified, uncomplicated; I25.10 Atherosclerotic heart disease of native coronary artery without angina pectoris; I25.2 Old myocardial infarction; I10 Essential (primary) hypertension; J44.9 Chronic obstructive pulmonary disease, unspecified; E11.9 Type 2 diabetes mellitus without complications
CPT/HCPCS: 99284; 96372; 81001; 72131; J2270; J1100

== ENCOUNTER 2018-02-17 16:21 | Emergency (ER) | payer MEDICARE, OTHER ==
[2018-02-17] MEDS ORDERED: FENTANYL CITRATE INJ/PF 100 MCG/2 ML AMPUL IM ONE ×2 (16:49→18:59)
[2018-02-17] MEDS ORDERED: KETOROLAC TROMETHAMINE 60 MG/2 ML SDV IM ONE (16:49)
--- NOTE | 2018-02-17 17:49 | ER Document Report ---
ED General - General Stated Complaint: BACK PAIN Time Seen by Provider: 02/17/18 16:38 Mode of Arrival: Ambulatory Information source: Patient TRAVEL OUTSIDE OF THE [place] IN LAST 30 DAYS: No - HPI Notes: 67-year-old male with a history of chronic back pain ED for evaluation of acute exacerbation of chronic back pain his pain management physician, was not seen at the today. No new trauma to lower back, recent falls. No fever or chills. Denies any bowel or bladder dysfunction, no saddle anesthesia. Patient called his pain management doctor who told him to go to the ED without evaluation. Patient typically does steroid injections and taking Tylenol for pain. Pt does receive facet joint injections with steroids, was only last for a few days and then dissipates. Patient states he was given [place] prescription by his PCP back in December, still has 6 left, states he has full resolution of his pain while taking [place] but was told by his pain specialist that it is getting "clogged in his system and is not metabolizing it. So he discontinued taking medication. Denies any rashes. Patient states pain is 7 out of 10, throbbing and sharp. Denies chest pain,palpitations, shortness of breath, dyspnea, nausea, vomiting, diarrhea, abdominal pain, hematuria,blurred vision, double vision, loss of vision, speech changes, LH, dizziness, syncope, headaches , wheezing, ST, URI, neck pain, weakness, bowel or bladder dysfunction, saddle anesthesia, numbness or tingling in bilateral upper or lower extremities equally , muscle paralysis, weakness in bilateral upper or lower extremities equally or rash. Denies IV drug use. - Related Data Allergies/Adverse Reactions: promethazine [From Phenergan] Adverse Reaction (Intermediate, Verified 02/11/18 09:23) Dystonia Past Medical History - General Information source: Patient, Relative - - Social History Smoking Status: Unknown if Ever Smoked Family History: Reviewed & Not Pertinent, DM, Hypertension - Past Medical History Cardiac Medical History: Reports: Hx Atrial Fibrillation - Paroxysmal, Hx Congestive Heart Failure - Systolic; ejection fraction 2016 of approximately 20% ., Hx Coronary Artery Disease, Hx Heart Attack - [place] December 2016, Hx Hypercholesterolemia, Hx Hypertension Denies: Hx DVT, Hx Pulmonary Embolism Pulmonary Medical History: Reports: Hx Bronchitis, Hx COPD - Nightly and as needed 2 L oxygen per nasal cannula, Hx Sleep Apnea - Nasal CPAP; pressure 10 Denies: Hx Asthma Neurological Medical History: Denies: Hx Seizures Endocrine Medical History: Reports: Hx Diabetes Mellitus Type 2. Denies: Hx Diabetes Mellitus Type 1, Hx Hyperthyroidism, Hx Hypothyroidism Renal/ Medical History: Reports: Hx Renal Insufficiency. Denies: Hx Peritoneal Dialysis GI Medical History: Reports: Hx Gastroesophageal Reflux Disease, Hx Colonoscopy , Hx Endoscopy. Denies: Hx Cirrhosis Musculoskeltal Medical History: Reports Hx Arthritis, Reports Hx Gout - Primarily affecting left ankle and foot, Reports Hx Musculoskeletal Deformity - Back pain for 4-5 years Psychiatric Medical History: Denies: Hx Depression Infectious Medical History: Denies: Hx C-Diff, Hx MRSA Past Surgical History: Reports: Hx Cardiac Surgery - DEFIB, Hx Orthopedic Surgery - right rotator cuff - Immunizations Hx Diphtheria, Pertussis, Tetanus Vaccination: Yes Hx Pneumococcal Vaccination: 11/05/13 Review of Systems - Review of Systems Constitutional: No symptoms reported EENT: No symptoms reported Cardiovascular: No symptoms reported Respiratory: No symptoms reported Gastrointestinal: See HPI Genitourinary: No symptoms reported Male Genitourinary: No symptoms reported Musculoskeletal: See HPI Skin: No symptoms reported Hematologic/Lymphatic: No symptoms reported Neurological/Psychological: No symptoms reported Physical Exam - Notes Notes: PHYSICAL EXAMINATION: GENERAL: Well-appearing, well-nourished and in no acute distress. HEAD: Atraumatic, normocephalic. EYES: Pupils equal round and reactive to light, extraocular movements intact, sclera anicteric, conjunctiva are normal. ENT: Nares patent, oropharynx clear without exudates. Moist mucous membranes. NECK: Normal range of motion, supple without lymphadenopathy LUNGS: Breath sounds clear to auscultation bilaterally and equal. No wheezes rales or rhonchi. HEART: Regular rate and rhythm without murmurs ABDOMEN: Soft, nontender, nondistended abdomen. No guarding, no rebound. No masses appreciated. Musculoskeletal: Normal range of motion, no pitting or edema. No cyanosis.Pain with flexion and extension at 20 degrees, positive straight leg test bilaterally. Normal hip rotation. DTR +2 in BLE equally. Strength 5 out of 5 both distally and proximally to bilateral lower extremities normal motor and sensory function in BLE equally. Patient able to distinguish between soft and sharp to Q-tip sharp and in soft tip to bilateral lower extremities equally distal pulses + 2 BLE equally. Noted paraspinal tenderness near L2 and L3 with facet joint pain on r>L. Noted spinal tenderness from L1-L3. No CVA tenderness bilaterally. Femoral pulses + 2 bilaterally and equally. No abrasions, scars, lacerations, ecchymosis of any recent trauma. normal gait. NEUROLOGICAL: Cranial nerves grossly intact. Normal speech, normal gait. Normal sensory, motor exams PSYCH: Normal mood, normal affect. SKIN: Warm, Dry, normal turgor, no rashes or lesions noted. Course - Re-evaluation Re-evalutation: 02/17/18 18:16 67-year-old male presents to the ED with complaints of acute exact exacerbation of chronic back pain. Patient has not had any new trauma, rectal tone is intact , full motor and sensory function of bilateral lower extremities. Patient was advised to come to the ED for evaluation of pain without being evaluated in the office. Patient does not take any oral narcotic medication for pain control. Denies any loss of bladder, loss of bowel function or saddle anesthesia. Denies any numbness or tingling down bilateral lower extremities. Patient voided 200 mL's of urine, post residual void 7 mL's. Nurse Ana Campos RN at bedside as witness. Patient due to the fact he does not have any bladder or bowel dysfunction, no saddle anesthesia, full sensory function of bilateral lower extremities, normal rectal tone, normal post void bladder scan, patient is not a candidate for an MRI as he does not meet criterion, patient discussed with Dr. Ramesh Deluna, ED attending physician with patient having normal bilateral lower extremities, normal rectal tone) scan, patient does not need emergent MRI and can follow palpation. Low suspicion for expanding ruptured abdominal aortic aneurysm, cauda equina syndrome, epidural mass abscess or lesion, osteomyelitis, personal history of cancer, immunosuppression, history of a history of abuse, fracture, cord compression, cancer, retroperitoneal bleed , spinal epidural hematoma or herniated disc causing severe spinal stenosis and feel that patient is appropriate for discharge. I feel that patient is experiencing acute exacerbation of his chronic back pain. Patient was very reasonable, logical and willing to let provider assess him. Patient will send him with a [place] to go back as well as prednisone. 1930- Upon discharge, Patient became very upset and crying when he was told he is being discharged. Very angry and upset and crying and saying his pain is too much. Given 50 mcg of fentanyl prior to discharge, patient tried to throw himself off of the bed so he could stay because he "did not want to leave yet". This provider at bedside to evaluate. Dr. Albert Sharpe MD at [facility] to evaluate patient for a second option due pt have pain. Dr. Sharpe did a full evaluation of patient and felt that patient has mechanical back pain with a need for greater pain management since he is only receiving facet joint injections from his pain specialist. An emergent MRI at this time would not change is plan of care and could be followed up outpatient. I have reevaluated this patient multiple times and no significant life threatening changes are noted. The patient and I have discussed the diagnosis and risks, and we agree with discharging home and close follow-up. We also discussed returning to the Emergency Department immediately if new or worsening symptoms occur with the understanding that symptoms and presentations can change. Before discharge, patient's pain was reassessed and discharged to 2 out of 10. we have discussed the symptoms which are most concerning (e.g., saddle anesthesia, urinary or bowel incontinence or retention, changing or worsening pain) that necessitate immediate return. Follow-up with primary care provider and pain specialist within 24-48 hours. and patient agree with plan of care and all questions and concerns were answered. Patient was discharged home out incident on second attempt. Discharge - Discharge Clinical Impression: Acute exacerbation of chronic low back pain, Chronic low back pain Condition: Stable Disposition: HOME, SELF-CARE Instructions: Oral Narcotic Medication ([facility]), Low Back Pain ([facility]), Pain Medication Injection ([facility]), Stretching Exercises for the Back ([facility]), Chronic Back Pain ([facility]) Additional Instructions: LOW BACK PAIN: Three out of every four people will have an episode of disabling back pain during their lifetime. Most commonly the pain is due to straining of the muscles and ligaments in the low back. Usual treatment includes: (1) Rest on a firm surface. Avoid lying on your stomach. (2) Ice pack the painful area. After a few days, gentle heat may be used intermittently to relax the area, or ice packs can be continued. (3) Medication may be needed -- muscle relaxers and antiinflammatory medicines are commonly used. (4) As the back improves, exercises are prescribed to strengthen the back and abdominal muscles. Your doctor will advise you on the proper care for your back at each stage in your recovery. You may be better in a few days -- or healing may take several weeks. If new symptoms of a "herniated disc" (radiation of pain, numbness, or tingling down the back of the leg or weakness in the leg) occur, you should be re-examined. Further testing may be necessary. PAIN MEDICATION INJECTION: You have received an injection of a pain medication. You should experience significant pain relief within 45 minutes. If this injection was a narcotic -- it will impair your judgement, slow your reaction time and make you sleepy (as well as relieve your pain). Narcotics also can cause nausea. You should not drive, work with machinery, or perform any task requiring mental alertness until all effects of the medication are gone -- six to eight hours. Do not take any alcohol, or sedatives, and do not take any other medication without checking with your physician. ORAL NARCOTIC MEDICATION: You have been given a prescription for pain control. This medication is a narcotic. It's best taken with food, as nausea can result if taken on an empty stomach. Don't operate machinery or drive within six hours of taking this medication. Do not combine this medicine with alcohol, or with any medication which can cause sedation (such as cold tablets or sleeping pills) unless you get permission from the physician. Narcotics tend to cause constipation. If possible, drink plenty of fluids and eat a diet high in fiber and fruits. Please be aware that prescription narcotics also have the potential for abuse. People become addicted to these medications because of the general sense of wellbeing that they induce. This feeling along with a significant reduction in tension, anxiety, and aggression provides a stimulating seductive quality to these drugs. Once your pain is under control, we encourage you to discard your unused narcotics. After approximately two days, apply gentle heat (such as a heating pad or hot water bottle) for about 20 to 30 minutes about every two hours -- at least four times daily. Warmth and elevation will help you make a more rapid recovery , and will ease the pain considerably. Do not use HOT heat, and never apply heat for longer than 30 minutes. The continuous heat can invisibly damage skin and muscles -- even when no burn is seen on the surface. Damaged muscles can make you MORE sore. FOLLOW-UP CARE: If you have been referred to a physician for follow-up care, call the physician s office for an appointment as you were instructed or within the next two days. If you experience worsening or a significant change in your symptoms, notify the physician immediately or return to the Emergency Department at any time for re-evaluation. Follow-up with your primary care provider and pain management within 24-48 hours. You have a normal rectal tone, equal strength in bilateral lower extremities. You have an acute exacerbation of the chronic back pain, You pain was managed today controlled pain medication and anti-inflammatory intramuscularly . He will be going home with oral neck colics, do not drive, drink or operate heavy machinery while taking medication as it can cause sedation and/or impairment. Return immediately for any new or worsening symptoms. Follow up with primary care provider, call tomorrow to make followup appointment. Prescriptions: Prednisone [Deltasone 20 mg Tablet] 3 tab PO DAILY 5 Days #15 tablet Referrals: RUFINA LOWRY MD [Primary Care Provider] - Follow up in 3-5 days MALU CHURCHILL MD [NO LOCAL MD] - Follow up tomorrow
[2018-02-17] MEDS ORDERED: HYDROCODONE/ACETAMINOPHEN 5-325 MG (6 TAB/ER DISP) PO PRN ×2 (18:14→18:43)
[2018-02-17 19:57] VITALS: BP 135/73
== END 2018-02-17 18:39 | disposition home or self-care (01) ==
LOC: ER 16:21
DX: M54.5 Low back pain (principal); G89.29 Other chronic pain; I25.10 Atherosclerotic heart disease of native coronary artery without angina pectoris; I25.2 Old myocardial infarction; I10 Essential (primary) hypertension; J44.9 Chronic obstructive pulmonary disease, unspecified; E11.9 Type 2 diabetes mellitus without complications
CPT/HCPCS: 99283; J1885; J3010; A9270

== ENCOUNTER → 2018-02-25 | Outpatient (CLI) | payer MEDICARE, OTHER ==
[2018-02-25 14:03] LABS: ABSOLUTE BASOPHILS # (AUTO) 0.1 10^3/uL (0.0-0.2); ABSOLUTE LYMPHOCYTES (AUTO) 1.3 10^3/uL (0.5-4.7); ABSOLUTE MONOCYTES (AUTO) 0.5 10^3/uL (0.1-1.4); ABSOLUTE NEUT (AUTO) 4.2 10^3/uL (1.7-8.2); BASOPHILS % (AUTO) 0.9 % (0-2); EOSINOPHILS % (AUTO) 0.7 % (0-6); LYMPHOCYTES % (AUTO) 21.2 % (13-45); MEAN CORPUSCULAR HEMOGLOBIN 25.4 pg (27.0-33.4); MEAN CORPUSCULAR HGB CONC 31.5 g/dL (32.0-36.0); MEAN CORPUSCULAR VOLUME 81 fl (80-97); MONOCYTES % (AUTO) 8.8 % (3-13); PLATELET COUNT 136 10^3/uL (150-450); RED BLOOD COUNT 4.35 10^6/uL (4.35-5.55); RED CELL DISTRIBUTION WIDTH 15.9 % (11.5-14.0); SEGMENTED NEUTROPHILS % (AUTO) 68.4 % (42-78); TOTAL CELLS COUNTED % (AUTO) 100 %; WHITE BLOOD COUNT 6.1 10^3/uL (4.0-10.5)
[2018-02-25 14:13] LABS: APPEARANCE,URINE CLEAR; BILIRUBIN,URINE NEGATIVE (NEGATIVE); COLOR,URINE YELLOW; GLUCOSE, URINE NEGATIVE (NEGATIVE); KETONES,URINE NEGATIVE (NEGATIVE); LEUKOCYTE ESTERASE,URINE NEGATIVE (NEGATIVE); NITRITE,URINE NEGATIVE (NEGATIVE); PROTEIN,URINE NEGATIVE (NEGATIVE); URINE SPECIFIC GRAVITY 1.014; UROBILINOGEN,URINE NEGATIVE mg/dL (<2.0)
[2018-02-25 14:27] LABS: ALBUMIN 4.2 g/dL (3.5-5.0); ANION GAP 10 (5-19); BLOOD UREA NITROGEN 43 mg/dL (7-20); CARBON DIOXIDE 34 mmol/L (22-30); CHLORIDE 103 mmol/L (98-107); GLUCOSE 91 mg/dL (75-110); PHOSPHORUS 4.1 mg/dL (2.5-4.5); POTASSIUM 5.1 mmol/L (3.6-5.0); SODIUM 146.7 mmol/L (137-145)
[2018-02-26 12:39] LABS: CREATININE URINE 116.2 mg/dL (Not Estab.); MICROALBUMIN URINE 9.6 ug/mL (Not Estab.)
== END ==
LOC: OD 13:11
PROVIDERS: ATTEND Internal Medicine Nephrology
DX: N18.3 Chronic kidney disease, stage 3 (moderate) (principal); D64.9 Anemia, unspecified; N25.81 Secondary hyperparathyroidism of renal origin; E83.41 Hypermagnesemia
CPT/HCPCS: 36415; 80048; 81001; 82040; 82043; 82306; 82570; 83735; 83970; 84100; 85025

== ENCOUNTER 2018-03-03 22:31 | Inpatient (IN) | payer MEDICARE, OTHER ==
[2018-03-03] MEDS ORDERED: OXYCODONE-ACETAMINOPHEN 5-325 MG TABLET PO ONE (22:44)
[2018-03-03] MEDS ORDERED: LIDOCAINE 5% (700 MG) TRANSDERMAL ADH..PATCH TP ONE (22:45)
--- NOTE | 2018-03-03 22:47 | ER Document Report ---
ED Medical Screen (RME) - General Stated Complaint: LEG PAIN/BLOOD PRESSURE ISSUES Time Seen by Provider: 03/03/18 22:42 Mode of Arrival: Wheelchair Information source: Patient Notes: Patient reports having low blood pressure at home 90s over 50s. Patient states he has had some adjustments to his medications recently. Patient states that he was feeling lightheaded and dizzy at home. Patient without any chest pain or headache. Patient states that on his way here he started to have severe right calf tenderness. Patient denies any injury to the leg. hx: Diabetes, CHF, hyperlipidemia, hypertension, life vest I have greeted and performed a rapid initial assessment of this patient. A comprehensive ED assessment and evaluation of the patient, analysis of test results and completion of the medical decision making process will be conducted by additional ED providers. TRAVEL OUTSIDE OF THE [place] IN LAST 30 DAYS: No - Related Data Allergies/Adverse Reactions: promethazine [From Phenergan] Adverse Reaction (Intermediate, Verified 02/11/18 09:23) Dystonia Past Medical History - Past Medical History Cardiac Medical History: Reports: Hx Atrial Fibrillation - Paroxysmal, Hx Congestive Heart Failure - Systolic; ejection fraction 2017 of approximately 20% ., Hx Coronary Artery Disease, Hx Heart Attack - [place] December 2016, Hx Hypercholesterolemia, Hx Hypertension Denies: Hx DVT, Hx Pulmonary Embolism Pulmonary Medical History: Reports: Hx Bronchitis, Hx COPD - Nightly and as needed 2 L oxygen per nasal cannula, Hx Sleep Apnea - Nasal CPAP; pressure 10 Denies: Hx Asthma Neurological Medical History: Denies: Hx Seizures Endocrine Medical History: Reports: Hx Diabetes Mellitus Type 2. Denies: Hx Diabetes Mellitus Type 1, Hx Hyperthyroidism, Hx Hypothyroidism Renal/ Medical History: Reports: Hx Renal Insufficiency. Denies: Hx Peritoneal Dialysis GI Medical History: Reports: Hx Gastroesophageal Reflux Disease, Hx Colonoscopy , Hx Endoscopy. Denies: Hx Cirrhosis Musculoskeltal Medical History: Reports Hx Arthritis, Reports Hx Gout - Primarily affecting left ankle and foot, Reports Hx Musculoskeletal Deformity - Back pain for 4-5 years Psychiatric Medical History: Denies: Hx Depression Infectious Medical History: Denies: Hx C-Diff, Hx MRSA Past Surgical History: Reports: Hx Cardiac Surgery - DEFIB, Hx Orthopedic Surgery - right rotator cuff - Immunizations Hx Diphtheria, Pertussis, Tetanus Vaccination: Yes Physical Exam - Vital signs Vitals: Temp Pulse Resp BP Pulse Ox 98.0 F 71 20 100/54 L 97 03/03/18 22:39 03/03/18 22:39 03/03/18 22:39 03/03/18 22:39 03/03/18 22:39 - Extremities General lower extremity: Tender - Right calf tenderness 2+ posterior tibial pulse Course - Vital Signs Vital signs: Temp Pulse Resp BP Pulse Ox 98.0 F 71 20 100/54 L 97 03/03/18 22:39 03/03/18 22:39 03/03/18 22:39 03/03/18 22:39 03/03/18 22:39 Doctor's Discharge - Discharge Referrals: NIRALI SERRANO MD [Primary Care Provider] - Follow up as needed
[2018-03-03 23:16] LABS: ABSOLUTE EOSINOPHILS # (AUTO) 0.1 10^3/uL (0.0-0.6); ABSOLUTE LYMPHOCYTES (AUTO) 1.2 10^3/uL (0.5-4.7); ABSOLUTE MONOCYTES (AUTO) 0.6 10^3/uL (0.1-1.4); ABSOLUTE NEUT (AUTO) 3.8 10^3/uL (1.7-8.2); BASOPHILS % (AUTO) 0.7 % (0-2); HEMATOCRIT 30.7 % (37.9-51.0); HEMOGLOBIN 9.7 g/dL (13.5-17.0); MEAN CORPUSCULAR HEMOGLOBIN 25.4 pg (27.0-33.4); MEAN CORPUSCULAR HGB CONC 31.6 g/dL (32.0-36.0); MEAN CORPUSCULAR VOLUME 80 fl (80-97); MONOCYTES % (AUTO) 9.8 % (3-13); PLATELET COUNT 136 10^3/uL (150-450); RED BLOOD COUNT 3.82 10^6/uL (4.35-5.55); RED CELL DISTRIBUTION WIDTH 14.8 % (11.5-14.0); SEGMENTED NEUTROPHILS % (AUTO) 67.5 % (42-78); TOTAL CELLS COUNTED % (AUTO) 100 %; WHITE BLOOD COUNT 5.6 10^3/uL (4.0-10.5)
[2018-03-03 23:21] LABS: ALANINE AMINOTRANSFERASE 31 U/L (21-72); ALBUMIN 4.2 g/dL (3.5-5.0); ALKALINE PHOSPHATASE 53 U/L (38-126); ANION GAP 11 (5-19); ASPARTATE AMINO TRANSFERASE 22 U/L (17-59); BILIRUBIN,DIRECT 0.3 mg/dL (0.0-0.4); BILIRUBIN,TOTAL 0.4 mg/dL (0.2-1.3); BLOOD UREA NITROGEN 75 mg/dL (7-20); CALCIUM 9.4 mg/dL (8.4-10.2); CARBON DIOXIDE 31 mmol/L (22-30); CHLORIDE 100 mmol/L (98-107); CREATINE KINASE 119 U/L (55-170); GLUCOSE 217 mg/dL (75-110); POTASSIUM 5.1 mmol/L (3.6-5.0); SODIUM 141.7 mmol/L (137-145); TOTAL PROTEIN 6.9 g/dL (6.3-8.2)
--- NOTE | 2018-03-03 23:32 | RADIOLOGY REPORT (SQ) ---
EXAM DESCRIPTION: XR CHEST 2 VIEWS COMPLETED DATE/TME: 03/03/2018 22:43 CLINICAL HISTORY: low bp COMPARISON: 01/15/2018 FINDINGS: Frontal and lateral views of the chest. The cardiomediastinal silhouette has normal size and contour. No consolidation, pneumothorax, or pleural effusion. No displaced rib fractures identified. Patient has wearable automatic external defibrillator. Upper abdominal soft tissues are unremarkable. IMPRESSION: 1. No acute pulmonary process identified.
[2018-03-03 23:33] LABS: CREATINE KINASE MB 0.78 ng/mL (<4.55); TROPONIN I 0.024 ng/mL
[2018-03-03] MEDS ORDERED: NORMAL SALINE 1000 ML 1,000 ML IV ONE (23:36)
--- NOTE | 2018-03-03 23:36 | ER Document Report ---
ED General - General Chief Complaint: Leg Pain Stated Complaint: LEG PAIN/BLOOD PRESSURE ISSUES Time Seen by Provider: 03/03/18 22:42 Mode of Arrival: Wheelchair Notes: Patient reports having low blood pressure at home 90s over 50s. Patient states he has had some adjustments to his medications recently. Patient states that he was feeling lightheaded and dizzy at home. Patient without any chest pain or headache. Patient states that on his way here he started to have severe right calf tenderness. Patient denies any injury to the leg. hx: Diabetes, CHF, hyperlipidemia, hypertension, life vest Chief complaint: Low blood pressure History of complain:( obtained from----patient) 67 years old male was feeling dizzy, checked the blood pressure it was 90/50. 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 Otherwise denies any focal weakness numbness tingling sensation chest pain palpitation or diaphoresis. Onset: As above Duration: Gradual Severity: Moderate to severe Quality: Dizzy Context: As described above Exacerbating factor and relieving factors: Standing up walking made him more dizzy. REVIEW OF SYSTEMS: CONSTITUTIONAL : Denies fever, chills, or sweats. Denies recent illness. EENT: Denies eye, ear, throat, or mouth pain or symptoms. Denies nasal or sinus congestion or discharge. Denies throat, tongue, or mouth swelling or difficulty swallowing. CARDIOVASCULAR: Denies chest pain. Denies palpitations or racing or irregular heart beat. Denies ankle edema. RESPIRATORY: Denies cough, cold, or chest congestion. Denies shortness of breath, difficulty breathing, or wheezing. GASTROINTESTINAL: Denies distention. Denies nausea, vomiting, or diarrhea. Denies blood in vomitus, stools, or per rectum. Denies black, tarry stools. Denies constipation. GENITOURINARY: Denies difficulty urinating, painful urination, burning, frequency, blood in urine, or discharge. FEMALE GENITOURINARY: Denies vaginal bleeding, heavy or abnormal periods, irregular periods. Denies vaginal discharge or odor. MUSCULOSKELETAL: Denies back or neck pain or stiffness. Denies joint pain or swelling. SKIN: Denies rash, lesions or sores. HEMATOLOGIC : Denies easy bruising or bleeding. LYMPHATIC: Denies swollen, enlarged glands. NEUROLOGICAL: Denies confusion or altered mental status. Denies passing out or loss of consciousness. Denies dizziness or lightheadedness. Denies headache. Denies weakness or paralysis or loss of use of either side. Denies problems with gait or speech. Denies sensory loss, numbness, or tingling. Denies seizures. PSYCHIATRIC: Denies anxiety or stress. Denies depression, suicidal ideation, or homicidal ideation. ALL OTHER SYSTEMS REVIEWED AND NEGATIVE. PHYSICAL EXAMINATION: GENERAL: Well-appearing, well-nourished and in no acute distress. Pleasant gentleman HEAD: Atraumatic, normocephalic. EYES: Pupils equal round and reactive to light, extraocular movements intact, conjunctiva are normal. ENT: Nares patent, oropharynx clear without exudates. Moist mucous membranes. NECK: Normal range of motion, supple without lymphadenopathy LUNGS: Breath sounds clear to auscultation bilaterally and equal. No wheezes rales or rhonchi. HEART: Regular rate and rhythm without murmurs ABDOMEN: Soft, nontender, nondistended abdomen. No guarding, no rebound. No masses appreciated. Examination of genitals-deferred Musculoskeletal: Normal range of motion, no pitting or edema. No cyanosis. NEUROLOGICAL: Cranial nerves grossly intact. Normal speech, normal gait. Normal sensory, motor exams PSYCH: Normal mood, normal affect. SKIN: Warm, Dry, normal turgor, no rashes or lesions noted. Dictation was performed using Booster voice recognition software TRAVEL OUTSIDE OF THE [place] IN LAST 30 DAYS: No - HPI Patient complains to provider of: Dictated - Related Data Allergies/Adverse Reactions: promethazine [From Phenergan] Adverse Reaction (Intermediate, Verified 02/11/18 09:23) Dystonia Past Medical History - General Information source: Patient - Social History Smoking Status: Never Smoker Smoking Education Provided: No Frequency of alcohol use: Rare Drug Abuse: None Lives with: Family Family History: Reviewed & Not Pertinent, DM, Hypertension - Past Medical History Cardiac Medical History: Reports: Hx Atrial Fibrillation - Paroxysmal, Hx Congestive Heart Failure - Systolic; ejection fraction 2016 of approximately 20% ., Hx Coronary Artery Disease, Hx Heart Attack - [place] December 2016, Hx Hypercholesterolemia, Hx Hypertension Denies: Hx DVT, Hx Pulmonary Embolism Pulmonary Medical History: Reports: Hx Bronchitis, Hx COPD - Nightly and as needed 2 L oxygen per nasal cannula, Hx Sleep Apnea - Nasal CPAP; pressure 10 Denies: Hx Asthma Neurological Medical History: Denies: Hx Seizures Endocrine Medical History: Reports: Hx Diabetes Mellitus Type 2. Denies: Hx Diabetes Mellitus Type 1, Hx Hyperthyroidism, Hx Hypothyroidism Renal/ Medical History: Reports: Hx Renal Insufficiency. Denies: Hx Peritoneal Dialysis GI Medical History: Reports: Hx Gastroesophageal Reflux Disease, Hx Colonoscopy , Hx Endoscopy. Denies: Hx Cirrhosis Musculoskeltal Medical History: Reports Hx Arthritis, Reports Hx Gout - Primarily affecting left ankle and foot, Reports Hx Musculoskeletal Deformity - Back pain for 4-5 years Psychiatric Medical History: Denies: Hx Depression Infectious Medical History: Denies: Hx C-Diff, Hx MRSA Past Surgical History: Reports: Hx Cardiac Surgery - DEFIB, Hx Orthopedic Surgery - right rotator cuff - Immunizations Hx Diphtheria, Pertussis, Tetanus Vaccination: Yes Hx Pneumococcal Vaccination: 11/05/13 Review of Systems - Review of Systems Notes: Dictated Physical Exam - Vital signs Vitals: Temp Pulse Resp BP Pulse Ox 98.0 F 71 20 100/54 L 97 03/03/18 22:39 03/03/18 22:39 03/03/18 22:39 03/03/18 22:39 03/03/18 22:39 - Notes Notes: Dictated Course - Re-evaluation Re-evalutation: 03/04/18 03:26 Given IV fluid - Vital Signs Vital signs: Temp Pulse Resp BP Pulse Ox 98.0 F 71 16 104/58 L 95 03/03/18 22:39 03/03/18 22:39 03/04/18 01:01 03/04/18 01:01 03/04/18 01:01 - Laboratory Result Diagrams: 03/03/18 22:55 03/03/18 22:55 Laboratory results interpreted by me: 03/03/18 03/03/18 22:55 22:55 RBC 3.82 L Hgb 9.7 L Hct 30.7 L MCH 25.4 L MCHC 31.6 L RDW 14.8 H Plt Count 136 L Potassium 5.1 H Carbon Dioxide 31 H BUN 75 H Creatinine 4.21 H Est GFR ( Amer) 17 L Est GFR (Non-Af Amer) 14 L Glucose 217 H - Diagnostic Test Radiology reviewed: Reports reviewed - Chest x-ray was reported by radiologist as unremarkable - EKG Interpretation by Me EKG shows normal: Sinus rhythm Rate: Normal - At the rate of 63 bpm, left axis, left anterior fascicular block , no acute ST elevation ST depression. Discharge - Discharge Clinical Impression: Hypotension Qualifiers: Hypotension type: unspecified hypotension type Qualified Code(s): I95.9 - Hypotension, unspecified Condition: Fair Disposition: ADMITTED INPATIENT Admitting Provider: Hospitalist Unit Admitted: Telemetry Referrals: NIRALI SERRANO MD [ACTIVE STAFF] - Follow up as needed
[2018-03-04] MEDS ORDERED: ROPINIROLE HCL 1 MG TABLET PO ONE (01:10)
[2018-03-04] MEDS ORDERED: OXYCODONE-ACETAMINOPHEN 5-325 MG TABLET PO ONE (01:10)
[2018-03-04] MEDS ORDERED: ROPINIROLE HCL 1 MG TABLET ONE (01:29)
[2018-03-04] MEDS: NORMAL SALINE 1000 ML 1,000 ML IV PRN ×2 (03:10→10:40)
[2018-03-04] MEDS ORDERED: MIDODRINE HCL 5 MG TABLET PO SCH ×2 (05:00→10:00)
[2018-03-04 05:45] LABS: CREATINE KINASE MB 0.87 ng/mL (<4.55); TROPONIN I 0.019 ng/mL
--- NOTE | 2018-03-04 05:48 | PDOC H&P ---
History of Present Illness Admission Date/PCP: 03/04/18 03:52 RUFINA LOWRY MD Patient complains of: Right leg pain and hypotension History of Present Illness: BAM MORRISON is a 67 year old male with a past medical history of congestive heart failure with ejection fraction of less than 50% with a LifeVest, atrial fibrillation on Eliquis, COPD, chronic bronchitis, obstructive sleep apnea, stage IV chronic kidney disease and diabetes. He presents with 8 hours of hypotension of 80/50 generalized weakness and acute on chronic sciatic leg pain on the right. In the emergency room he is hypotensive with acute on chronic renal failure and intractable pain, receives 4 tabs of Percocet, Lidoderm patch 2 L of normal saline and referred to the hospitalist. Patient states recent increase of several antihypertensives. Admits minimal dark urine output. Denies chest pain or shortness of breath. Past Medical History Cardiac Medical History: Reports: Atrial Fibrillation - Paroxysmal, Congestive Heart Failure - Systolic; ejection fraction 2017 of approximately 20%., Coronary Artery Disease, Myocardial Infarction - [place] December 2016, Hyperlipidema, Hypertension Denies: DVT, Pulmonary Embolism Pulmonary Medical History: Reports: Bronchitis, Chronic Obstructive Pulmonary Disease (COPD) - Nightly and as needed 2 L oxygen per nasal cannula, Sleep Apnea - Nasal CPAP; pressure 10 Denies: Asthma Neurological Medical History: Denies: Seizures Endocrine Medical History: Reports: Diabetes Mellitus Type 2 Denies: Diabetes Mellitus Type 1, Hyperthyroidism, Hypothyroidism GI Medical History: Reports: Gastroesophageal Reflux Disease Denies: Cirrhosis Musculoskeltal Medical History: Reports: Arthritis, Gout - Primarily affecting left ankle and foot Psychiatric Medical History: Denies: Depression Hematology: Reports: Anemia - Followed by Dr. Wilson; recent total GI workup. Infectious Medical History: Denies: Clostridium Difficile, Methicillin-Resistant Staph Aureus Past Surgical History Past Surgical History: Reports: Orthopedic Surgery - right rotator cuff Denies: Pacemaker Social History Information Source: Patient, [facility] Records Lives with: Family, Spouse/Significant other Smoking Status: Never Smoker Frequency of Alcohol Use: None Hx Recreational Drug Use: No Drugs: None Hx Prescription Drug Abuse: No - Advance Directive Resuscitation Status: Full Code Family History Family History: DM, Hypertension Parental Family History Reviewed: Yes Children Family History Reviewed: Yes Sibling(s) Family History Reviewed.: Yes Medication/Allergy Home Medications: Apixaban [Eliquis 5 mg Tablet] 5 mg PO Q12 08/23/17 Atorvastatin Calcium [Lipitor 40 mg Tablet] 40 mg PO QHS 04/29/17 Cyanocobalamin (Vitamin B-12) [Vitamin B-12] 1,000 mcg PO DAILY 04/29/17 Baclofen [Baclofen 20 Mg Tablet] 20 mg PO TID PRN 06/07/17 Bumetanide [Bumex 1 mg Tablet] 1.5 mbq PO BID 06/07/17 Carvedilol [Coreg 3.125 mg Tablet] 3.125 mg PO BID 06/07/17 Cholecalciferol (Vitamin D3) [Vitamin D3] 1,000 unit PO DAILY 06/07/17 Colchicine [Colcrys 0.6 mg Tablet] 1 tab PO BID PRN 06/07/17 Glimepiride 2 mg PO DAILY PRN 06/07/17 Iron Aspgly,Ps/C/B12/FA/Ca/Suc [Ferrex 150 Forte Plus Capsule] 1 each PO DAILY 06/07/17 Isosorb Dinit/Hydralazine HCl [Bidil 20-37.5 mg Tablet] 1.5 tab PO TID 06/07/17 Magnesium Oxide [Mag-Ox 400 mg Tablet] 400 mg PO DAILY 06/07/17 Nitroglycerin [Nitrostat] 0.4 mg SL PRN PRN 06/07/17 Pantoprazole Sodium [Protonix] 40 mg PO DAILY PRN 06/07/17 Potassium Chloride [Klor-Con 10 Meq Tablet.sa] 20 meq PO DAILY 06/07/17 Spironolactone [Aldactone 25 mg Tablet] 12.5 mg PO DAILY 06/07/17 Tizanidine HCl [Zanaflex] 4 mg PO TID PRN 06/07/17 Lidocaine [Lidoderm 5% (700 mg) Transdermal Patch] 1 patch TP DAILY #30 adh..patch 12/01/17 Docusate Sodium [Colace 100 mg Capsule] 100 mg PO ASDIR PRN #30 capsule Morphine Sulfate [Morphine Ir 15 Mg Tablet] 15 mg PO Q4HP PRN #10 tablet Ondansetron [Zofran Odt 4 mg Tablet] 1 - 2 tab PO Q4H PRN #12 tab.rapdis Prednisone [Deltasone 20 mg Tablet] 3 tab PO DAILY 5 Days #15 tablet 02/17/18 Allergies/Adverse Reactions: promethazine [From Phenergan] Adverse Reaction (Intermediate, Verified 02/11/18 09:23) Dystonia Review of Systems Constitutional: PRESENT: as per HPI, fatigue, weakness, weight loss. ABSENT: anorexia, chills, fever(s), night sweats Eyes: ABSENT: visual disturbances Ears: ABSENT: hearing changes Cardiovascular: ABSENT: chest pain, dyspnea on exertion, edema, orthropnea, palpitations Respiratory: ABSENT: cough, hemoptysis Gastrointestinal: ABSENT: abdominal pain, constipation, diarrhea, hematemesis, hematochezia, nausea, vomiting Genitourinary: ABSENT: dysuria, hematuria Musculoskeletal: PRESENT: as per HPI, back pain, muscle weakness, other - Buttock pain over the piriformis, sciatic leg pain. ABSENT: joint swelling Integumentary: ABSENT: rash, wounds Neurological: ABSENT: abnormal gait, abnormal speech, confusion, dizziness, focal weakness, syncope Psychiatric: ABSENT: anxiety, depression, homidical ideation, suicidal ideation Endocrine: ABSENT: cold intolerance, heat intolerance, polydipsia, polyuria Hematologic/Lymphatic: ABSENT: easy bleeding, easy bruising Physical Exam Vital Signs: Temp Pulse Resp BP Pulse Ox 98.0 F 83 18 112/67 94 03/03/18 22:39 03/04/18 04:50 03/04/18 05:01 03/04/18 05:01 03/04/18 05:01 General appearance: PRESENT: cooperative, severe distress. ABSENT: mild distress, morbidly obese, obese Head exam: PRESENT: atraumatic, normocephalic Eye exam: PRESENT: conjunctiva pink, EOMI, PERRLA. ABSENT: scleral icterus Ear exam: PRESENT: normal external ear exam Mouth exam: PRESENT: moist, tongue midline Neck exam: ABSENT: carotid bruit, JVD, lymphadenopathy, thyromegaly Respiratory exam: PRESENT: clear to auscultation shital. ABSENT: crackles, rales, rhonchi, wheezes Cardiovascular exam: PRESENT: RRR. ABSENT: clicks, diastolic murmur, gallop, rubs, systolic murmur Pulses: PRESENT: normal dorsalis pedis pul Vascular exam: PRESENT: normal capillary refill GI/Abdominal exam: PRESENT: normal bowel sounds, soft. ABSENT: distended, guarding, mass, organolmegaly, rebound, tenderness Rectal exam: PRESENT: deferred Extremities exam: PRESENT: tenderness - Exquisite tenderness to palpation of the right piriformis muscle reproducing sciatic leg pain. ABSENT: +1 edema, +2 edema Neurological exam: PRESENT: alert, awake, oriented to person, oriented to place , oriented to time, oriented to situation, CN II-XII grossly intact. ABSENT: motor sensory deficit Psychiatric exam: PRESENT: appropriate affect, normal mood. ABSENT: homicidal ideation, suicidal ideation Skin exam: PRESENT: dry, intact, warm. ABSENT: cyanosis, rash Results Laboratory Results: 03/04/18 05:05 Lactic Acid 1.4 03/04/18 05:05 Creatine Kinase 115 Impressions: Chest X-Ray 03/03/18 22:43 IMPRESSION: 1. No acute pulmonary process identified. Assessment & Plan - Diagnosis (1) Hypotension Qualifiers: Hypotension type: unspecified hypotension type Qualified Code(s): I95.9 - Hypotension, unspecified Is this a current diagnosis for this admission?: Yes Plan: Multifactorial secondary to prerenal azotemia, narcotics and end-stage congestive heart failure, IV fluid challenge, limit narcotics, trial of midodrine, consider cardio consult versus transfer to tertiary care for biventricular pacemaker. (2) Piriformis syndrome of right side Is this a current diagnosis for this admission?: Yes Plan: Nonnarcotic symptomatic management and physical therapy (3) Acute renal failure superimposed on stage 3 chronic kidney disease Is this a current diagnosis for this admission?: Yes Plan: Significantly prerenal, IV fluid challenge, avoid nephrotoxic meds and doses, follow-up chemistry (4) Diabetes mellitus type 2 in nonobese Is this a current diagnosis for this admission?: Yes Plan: Home regiment with sliding scale coverage. - Time Time Spent: 50 to 70 Minutes - Inpatient Certification Medical Necessity: Need Close Monitoring Due to Risk of Patient Decompensation
[2018-03-04] MEDS ORDERED: MIDODRINE HCL 5 MG TABLET PO ONE ×2 (06:00→15:00)
--- NOTE | 2018-03-04 07:47 | EKG REPORT ---
SEVERITY:- ABNORMAL ECG - SINUS RHYTHM LEFT ANTERIOR FASCICULAR BLOCK BORDERLINE T WAVE ABNORMALITIES : Confirmed by: Tiffany Alba MD 04-Mar-2018 07:46:31
[2018-03-04] MEDS: ACETAMINOPHEN 325 MG TABLET PO PRN ×2 (09:21→17:29)
[2018-03-04] MEDS: DOCUSATE SODIUM 100 MG CAPSULE PO SCH (10:40)
[2018-03-04] MEDS: APIXABAN 5 MG TABLET PO SCH ×2 (10:40→23:16)
[2018-03-04] MEDS: LIDOCAINE 5% (700 MG) TRANSDERMAL ADH..PATCH TP SCH (10:40)
[2018-03-04] MEDS: CARVEDILOL 3.125 MG TABLET PO SCH ×2 (10:44→17:32)
[2018-03-04 12:04] LABS: CREATINE KINASE MB 1.06 ng/mL (<4.55); TROPONIN I 0.019 ng/mL
[2018-03-04] MEDS: MIDODRINE HCL 5 MG TABLET PO SCH (17:29)
[2018-03-04] MEDS ORDERED: (PENDING PHARMACY ID) (Oxycodone Hcl/Acetaminophen [Percocet 10-325 Mg Tablet] 1 TAB) PO PRN (17:32)
[2018-03-04] MEDS ORDERED: GABAPENTIN 400 MG CAPSULE PO PRN (17:44)
[2018-03-04] MEDS ORDERED: (PENDING PHARMACY ID) (Bumetanide [Bumex 0.5 Mg Tablet] 0.5 MG) PO SCH (18:00)
[2018-03-04] MEDS ORDERED: INSULIN GLARGINE,HUM.REC.ANLOG 300 UNIT/3 ML INSULN.PEN SUBCUT SCH (18:00)
[2018-03-04] MEDS ORDERED: SACUBITRIL/VALSARTAN 49 MG/51 MG TABLET PO SCH (18:00)
[2018-03-04 18:40] LABS: CREATINE KINASE MB 1.03 ng/mL (<4.55); TROPONIN I 0.018 ng/mL
[2018-03-04] MEDS: OXYCODONE-ACETAMINOPHEN 5-325 MG TABLET PO PRN (18:48)
[2018-03-04] MEDS ORDERED: SACUBITRIL/VALSARTAN 24 MG/26 MG TABLET PO SCH (22:00)
[2018-03-04] MEDS: ISOSORB DINIT/HYDRALAZINE HCL 20-37.5 MG TABLET PO SCH (23:00)
[2018-03-04] MEDS: ATORVASTATIN CALCIUM 40 MG TABLET PO SCH (23:01)
[2018-03-04] MEDS ORDERED: SACUBITRIL/VALSARTAN 49 MG/51 MG TABLET PO ONE (23:15)
[2018-03-04] MEDS: INSULIN GLARGINE,HUM.REC.ANLOG 300 UNIT/3 ML INSULN.PEN SUBCUT SCH (23:16)
[2018-03-04] MEDS: BUMETANIDE 1 MG TABLET PO SCH (23:16)
[2018-03-04] MEDS: GLIMEPIRIDE 4 MG TABLET PO SCH (23:16)
[2018-03-04] MEDS: OXYCODONE HCL IR 5 MG TABLET PO PRN (23:21)
[2018-03-05 05:30] LABS: ABSOLUTE EOSINOPHILS # (AUTO) 0.1 10^3/uL (0.0-0.6); ABSOLUTE LYMPHOCYTES (AUTO) 1.4 10^3/uL (0.5-4.7); ABSOLUTE MONOCYTES (AUTO) 0.6 10^3/uL (0.1-1.4); ABSOLUTE NEUT (AUTO) 4.7 10^3/uL (1.7-8.2); BASOPHILS % (AUTO) 0.5 % (0-2); EOSINOPHILS % (AUTO) 0.9 % (0-6); HEMATOCRIT 31.5 % (37.9-51.0); HEMOGLOBIN 10.2 g/dL (13.5-17.0); LYMPHOCYTES % (AUTO) 20.9 % (13-45); MEAN CORPUSCULAR HEMOGLOBIN 25.8 pg (27.0-33.4); MEAN CORPUSCULAR HGB CONC 32.4 g/dL (32.0-36.0); MEAN CORPUSCULAR VOLUME 80 fl (80-97); MONOCYTES % (AUTO) 9.4 % (3-13); PLATELET COUNT 120 10^3/uL (150-450); RED BLOOD COUNT 3.96 10^6/uL (4.35-5.55); RED CELL DISTRIBUTION WIDTH 14.7 % (11.5-14.0); SEGMENTED NEUTROPHILS % (AUTO) 68.3 % (42-78); TOTAL CELLS COUNTED % (AUTO) 100 %; WHITE BLOOD COUNT 6.9 10^3/uL (4.0-10.5)
[2018-03-05] MEDS: ACETAMINOPHEN 325 MG TABLET PO SCH ×3 (05:30→22:12)
[2018-03-05 05:56] LABS: CHOLESTEROL 214.77 mg/dL (0-200); TRIGLYCERIDES 292 mg/dL (<150)
[2018-03-05 06:07] LABS: DIRECT LDL 111 mg/dL (<100)
[2018-03-05 06:22] LABS: VLDL CHOLESTEROL 58.4 mg/dL (10-31)
[2018-03-05] MEDS: LIDOCAINE 5% (700 MG) TRANSDERMAL ADH..PATCH TP SCH (09:39)
[2018-03-05] MEDS: BUMETANIDE 1 MG TABLET PO SCH ×2 (09:44→18:28)
[2018-03-05] MEDS: OXYCODONE-ACETAMINOPHEN 5-325 MG TABLET PO PRN ×2 (09:48→18:32)
[2018-03-05] MEDS: OXYCODONE HCL IR 5 MG TABLET PO PRN ×2 (09:49→18:32)
[2018-03-05] MEDS: IRON POLYSACCHARIDES COMPLEX 150 MG CAPSULE PO SCH (09:51)
[2018-03-05] MEDS: ASPIRIN 81 MG TABLET, ENT COATED PO SCH (09:52)
[2018-03-05] MEDS: GLIMEPIRIDE 4 MG TABLET PO SCH ×2 (09:53→18:28)
[2018-03-05] MEDS: CYANOCOBALAMIN (VITAMIN B-12) 1,000 MCG TABLET SL SCH (09:54)
[2018-03-05] MEDS: ISOSORB DINIT/HYDRALAZINE HCL 20-37.5 MG TABLET PO SCH ×2 (09:57→22:14)
[2018-03-05] MEDS ORDERED: SACUBITRIL/VALSARTAN 24 MG/26 MG TABLET PO SCH (10:00)
[2018-03-05] MEDS ORDERED: FOLIC ACID PO SCH (10:00)
[2018-03-05] MEDS ORDERED: B12 PO SCH (10:00)
[2018-03-05] MEDS ORDERED: IRON PS COMPLEX PO SCH (10:00)
[2018-03-05] MEDS: MIDODRINE HCL 5 MG TABLET PO SCH ×3 (11:21→20:11)
[2018-03-05] MEDS: DOCUSATE SODIUM 100 MG CAPSULE PO SCH (11:21)
[2018-03-05] MEDS ORDERED: COLCHICINE 0.6 MG TABLET PO ONE (11:30)
[2018-03-05] MEDS: SACUBITRIL/VALSARTAN 24 MG/26 MG TABLET PO SCH ×2 (13:40→22:12)
[2018-03-05] MEDS: CARVEDILOL 3.125 MG TABLET PO SCH ×2 (13:40→18:30)
[2018-03-05] MEDS: APIXABAN 5 MG TABLET PO SCH ×2 (13:40→22:13)
--- NOTE | 2018-03-05 13:52 | PDOC PROGRESS REPORT ---
Subjective Progress Note for:: 03/05/18 Subjective:: MACRINA MORRISON is a 67 year old male with a past medical history of congestive heart failure with ejection fraction of less than 50% with a LifeVest, atrial fibrillation on Eliquis, COPD, chronic bronchitis, obstructive sleep apnea, stage IV chronic kidney disease and diabetes. He presents with 8 hours of hypotension of 80/50 generalized weakness and acute on chronic sciatic leg pain on the right. In the emergency room he is hypotensive with acute on chronic renal failure and intractable pain, receives 4 tabs of Percocet, Lidoderm patch 2 L of normal saline and referred to the hospitalist. Patient states recent increase of several antihypertensives. Admits minimal dark urine output. Denies chest pain or shortness of breath. Patient continues to complain of pain however when I saw him today he was fairly comfortable conversing with the technician trainee and laying in bed comfortably. Reason For Visit: HYPOTENSION HEART FAILURE, CKD4, INTRACTABLE Physical Exam Vital Signs: Temp Pulse Resp BP Pulse Ox 98.2 F 87 18 141/81 H 100 03/05/18 12:14 03/05/18 12:14 03/05/18 12:14 03/05/18 12:14 03/05/18 12:14 Intake & Output 03/04/18 03/05/18 03/06/18 06:59 06:59 06:59 Intake Total 100 Output Total 1775 Balance -1675 Weight 63.3 kg General appearance: PRESENT: no acute distress, well-developed, well-nourished Head exam: PRESENT: atraumatic, normocephalic Eye exam: PRESENT: conjunctiva pink, EOMI, PERRLA. ABSENT: scleral icterus Ear exam: PRESENT: normal external ear exam Mouth exam: PRESENT: moist, tongue midline Neck exam: ABSENT: carotid bruit, JVD, lymphadenopathy, thyromegaly Respiratory exam: PRESENT: clear to auscultation shital. ABSENT: rales, rhonchi, wheezes Cardiovascular exam: PRESENT: irregular rhythm. ABSENT: diastolic murmur, rubs , systolic murmur Pulses: PRESENT: normal dorsalis pedis pul Vascular exam: PRESENT: normal capillary refill GI/Abdominal exam: PRESENT: normal bowel sounds, soft. ABSENT: distended, guarding, mass, organolmegaly, rebound, tenderness Rectal exam: PRESENT: deferred Extremities exam: PRESENT: full ROM. ABSENT: calf tenderness, clubbing, pedal edema Neurological exam: PRESENT: alert, awake, oriented to person, oriented to place , oriented to time, oriented to situation, CN II-XII grossly intact. ABSENT: motor sensory deficit Psychiatric exam: PRESENT: appropriate affect, normal mood. ABSENT: homicidal ideation, suicidal ideation Skin exam: PRESENT: dry, intact, warm. ABSENT: cyanosis, rash Results Laboratory Results: 03/05/18 05:07 03/05/18 03/05/18 05:07 05:07 WBC 6.9 RBC 3.96 L Hgb 10.2 L Hct 31.5 L MCV 80 MCH 25.8 L MCHC 32.4 RDW 14.7 H Plt Count 120 L Seg Neutrophils % 68.3 Lymphocytes % 20.9 Monocytes % 9.4 Eosinophils % 0.9 Basophils % 0.5 Absolute Neutrophils 4.7 Absolute Lymphocytes 1.4 Absolute Monocytes 0.6 Absolute Eosinophils 0.1 Absolute Basophils 0.0 Triglycerides 292 H Cholesterol 214.77 H LDL Cholesterol Direct 111 H VLDL Cholesterol 58.4 H HDL Cholesterol 33 L 03/04/18 03/04/18 03/04/18 05:05 05:05 11:11 Creatine Kinase 115 99 CK-MB (CK-2) 0.87 Troponin I 0.019 03/04/18 03/04/18 03/04/18 11:11 17:00 17:00 Creatine Kinase 99 CK-MB (CK-2) 1.06 1.03 Troponin I 0.019 0.018 Impressions: Chest X-Ray 03/03/18 22:43 IMPRESSION: 1. No acute pulmonary process identified. Assessment & Plan - Time Time Spent with patient: 15-24 minutes Medications reviewed and adjusted accordingly: Yes Anticipated discharge: Home Within: within 48 hours - Inpatient Certification Based on my medical assessment, after consideration of the patient's comorbidities, presenting symptoms, or acuity I expect that the services needed warrant INPATIENT care.: Yes Medical Necessity: Significant Comorbidiites Make Outpatient Treatment Too Risky , Need for Pain Control - Plan Summary Plan Summary: Hypotension likely secondary to intravascular volume depletion and is poor ejection fraction with end-stage cardiomyopathy. Next 2. Piriformis syndrome of right side awaiting pain management 3. Acute renal failure superimposed on chronic kidney disease stage III we will continue to monitor 4. Cardiomyopathy with end-stage heart disease
[2018-03-05] MEDS ORDERED: METHYLPREDNISOLONE DOSEPAK (4 MG/TAB) 21 TAB/DSPK PO SCH (16:00)
[2018-03-05] MEDS ORDERED: CALCITRIOL 0.25 MCG CAPSULE PO SCH ×2 (17:32→18:00)
[2018-03-05] MEDS ORDERED: DEXTROSE 50%-WATER SYRINGE 25 GM/50 ML DOSE IV PRN (17:53)
[2018-03-05] MEDS ORDERED: DEXTROSE 40% GEL 15 GM TUBE PO PRN (17:53)
[2018-03-05] MEDS ORDERED: GLUCAGON,HUMAN RECOMB 1 MG INJ IM PRN (17:53)
[2018-03-05] MEDS ORDERED: DEXTROSE 40% GEL 15 GM TUBE X 2 PO PRN (17:53)
[2018-03-05] MEDS ORDERED: DEXTROSE 50%-WATER SYRINGE 12.5 GM/25 ML DOSE IV PRN (17:53)
--- NOTE | 2018-03-05 18:18 | XCELERA REPORT ---
[address] [address] Transthoracic Echocardiogram Report Name: BAM MORRISON Age: 67 yrs Gender: Male : 1950 Patient Status: Inpatient Patient Location: [address] [place], [place] [address] Study Date: 03/05/2018 11:21 AM Height: 71 in Weight: 139 lb BSA: 1.8 m2 Procedure: A complete two-dimensional transthoracic echocardiogram was performed (2D, M-mode, spectral and color flow Doppler). The study was technically adequate with some images being suboptimal in quality. Reason For Study: hypotension Ordering Physician: DIONICIO TINAJERO Performed By: Ros Aiken Interpretation Summary LV EF is 40% Left ventricular systolic function is moderately reduced. Doppler measurements suggest pseudonormalized left ventricular relaxation, which is associated with grade II/IV or mild to moderate diastolic dysfunction The left ventricle is grossly normal size. There is mild concentric left ventricular hypertrophy. Wall motion cannot be accurately commented on, but no definite regional wall motion abnormalities noted. The right ventricular systolic function is normal. The right atrium is normal in size The left atrial size is normal. There is no mitral valve stenosis. There is a trace amount of mitral regurgitation There is no aortic valve stenosis No aortic regurgitation is present. There is a trace to mild amount of tricuspid regurgitation There is moderate pulmonary hypertension by echo Right ventricular systolic pressure is estimated to be elevated at 40- 50mmHg. The aortic root is not well visualized but is probably normal size. The inferior vena cava was not visualized There is no pericardial effusion. MMode/2D Measurements & Calculations RVDd: 2.5 cm LVIDd: 5.0 cm FS: 16.6 % Ao root diam: 2.8 cm IVSd: 1.00 cm LVIDs: 4.1 cm EDV(Teich): 115.8 ml LVPWd: 1.0 cm ESV(Teich): 75.7 ml Ao root area: 6.1 cm2 EF(Teich): 34.6 % LA dimension: 3.2 cm Doppler Measurements & Calculations MV E max ellie: MV P1/2t max ellie: Ao V2 max: LV V1 max P.4 cm/sec 37.4 cm/sec 118.1 cm/sec 2.2 mmHg MV A max ellie: MV P1/2t: 51.1 msec Ao max PG: LV V1 max: 59.8 cm/sec 5.6 mmHg 74.4 cm/sec MV E/A: 0.63 MVA(P1/2t): 4.3 cm2 MV dec slope: 214.5 cm/sec2 MV dec time: 0.18 sec PA V2 max: PI end-d ellie: TR max ellie: 99.7 cm/sec 175.1 cm/sec 328.5 cm/sec PA max PG: TR max P.0 mmHg 43.2 mmHg Left Ventricle The left ventricle is grossly normal size. There is mild concentric left ventricular hypertrophy. Left ventricular systolic function is moderately reduced. LV EF is 40%. Doppler measurements suggest pseudonormalized left ventricular relaxation, which is associated with grade II/IV or mild to moderate diastolic dysfunction. Wall motion cannot be accurately commented on, but no definite regional wall motion abnormalities noted. Right Ventricle The right ventricle is grossly normal size. There is normal right ventricular wall thickness. The right ventricular systolic function is normal. Atria The right atrium is normal in size. The left atrial size is normal. Interarterial septum not well visualized and not well dopplered. Cannot comment on ASD/PFO presence. Mitral Valve The mitral valve leaflets are sclerotic, but show no functional abnormalities. There is no mitral valve stenosis. There is a trace amount of mitral regurgitation. Aortic Valve The aortic valve is grossly normal. There is no aortic valve stenosis. No aortic regurgitation is present. Tricuspid Valve The tricuspid valve is not well visualized, but is grossly normal. There is no tricuspid stenosis. There is a trace to mild amount of tricuspid regurgitation. There is moderate pulmonary hypertension by echo. Right ventricular systolic pressure is estimated to be elevated at 40-50mmHg. Pulmonic Valve The pulmonic valve is not well visualized. Great Vessels The aortic root is not well visualized but is probably normal size. The inferior vena cava was not visualized. Effusions There is no pericardial effusion. : DIONICIO TINAJERO > Dionicio Tinajero
[2018-03-05] MEDS: INSULIN LISPRO 100 UNIT/ML 3 ML VIAL SUBCUT PRN (18:25)
[2018-03-05] MEDS: INSULIN GLARGINE,HUM.REC.ANLOG 300 UNIT/3 ML INSULN.PEN SUBCUT SCH (18:25)
--- NOTE | 2018-03-05 20:19 | PDOC PROGRESS REPORT ---
Subjective Progress Note for:: 03/05/18 Subjective:: Patient seems to be doing better with gradual improvement. Pt is denying any chest arm or neck discomfort. Patient denying any PND, orthopnea. Patient denied any sustained palpitations, dizziness, syncope, near syncope. Patient denying any fever chills. Patient denying any other significant discomfort. Patient is maintaining sinus rhythm. Patient does complain of significant musculoskeletal pain. Review of systems: Rest review of systems negative. Medications: Medications have been reviewed. Reason For Visit: HYPOTENSION HEART FAILURE, CKD4, INTRACTABLE Physical Exam Vital Signs: Temp Pulse Resp BP Pulse Ox 98.8 F 74 18 118/69 100 03/05/18 16:22 03/05/18 16:22 03/05/18 16:22 03/05/18 16:22 03/05/18 16:22 Intake & Output 03/04/18 03/05/18 03/06/18 06:59 06:59 06:59 Intake Total 100 660 Output Total 1775 1650 Balance -1675 -990 Weight 63.3 kg Exam: GENERAL: well-nourished and in no acute distress. Alert and oriented x3 HEAD: Atraumatic, normocephalic. EYES: Pupils equal round and reactive to light, extraocular movements intact, sclera anicteric, conjunctiva are normal. ENT: TMs normal, nares patent, oropharynx clear without exudates. Moist mucous membranes. No oral ulcerations or bleeding gums noted NECK: supple without lymphadenopathy. Trachea is central. No cervical or axillary lymphadenopathy noted. Carotids are 2+, JVD WNL LUNGS: Respiration seems nonlabored, no significant accessory muscle action noted. Breath sounds clear to auscultation bilaterally and equal noted. No wheezes rales or rhonchi noted. No significant dullness noted on percussion. CHEST: Palpation of the chest wall shows no significant chest wall tenderness. 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 ABDOMEN: Soft, no significant tenderness appreciated, normoactive bowel sounds. No guarding, no rebound. No rigidity noted . No masses appreciated. EXTREMITIES: Pedal pulses are 1-2+, no calf tenderness noted. No clubbing or cyanosis. negative pedal edema noted NEUROLOGICAL: Focused neurological exam showed no significant neurologic deficit. Normal speech, no focal weakness appreciated. PSYCH: Normal mood, normal affect. Judgment and insight within normal limits. SKIN: No significant ecchymosis, skin is noted to be warm. MUSCULOSKELETAL EXAM: No significant acute joint swelling noted. Results Laboratory Results: 03/05/18 05:07 03/05/18 03/05/18 05:07 05:07 WBC 6.9 RBC 3.96 L Hgb 10.2 L Hct 31.5 L MCV 80 MCH 25.8 L MCHC 32.4 RDW 14.7 H Plt Count 120 L Seg Neutrophils % 68.3 Lymphocytes % 20.9 Monocytes % 9.4 Eosinophils % 0.9 Basophils % 0.5 Absolute Neutrophils 4.7 Absolute Lymphocytes 1.4 Absolute Monocytes 0.6 Absolute Eosinophils 0.1 Absolute Basophils 0.0 Triglycerides 292 H Cholesterol 214.77 H LDL Cholesterol Direct 111 H VLDL Cholesterol 58.4 H HDL Cholesterol 33 L 03/04/18 03/04/18 03/04/18 05:05 05:05 11:11 Creatine Kinase 115 99 CK-MB (CK-2) 0.87 Troponin I 0.019 03/04/18 03/04/18 03/04/18 11:11 17:00 17:00 Creatine Kinase 99 CK-MB (CK-2) 1.06 1.03 Troponin I 0.019 0.018 EKG Comments: Shows sinus rhythm without any sustained cardiac dysrhythmia. Impressions: Chest X-Ray 03/03/18 22:43 IMPRESSION: 1. No acute pulmonary process identified. Assessment & Plan - Diagnosis (1) Hypotension Qualifiers: Hypotension type: unspecified hypotension type Qualified Code(s): I95.9 - Hypotension, unspecified Is this a current diagnosis for this admission?: Yes (2) CHF (congestive heart failure) Is this a current diagnosis for this admission?: Yes (3) Cardiomyopathy Qualifiers: Cardiomyopathy type: unspecified Qualified Code(s): I42.9 - Cardiomyopathy , unspecified Is this a current diagnosis for this admission?: Yes (4) Paroxysmal atrial fibrillation Is this a current diagnosis for this admission?: Yes (5) Sleep apnea syndrome Qualifiers: Sleep apnea type: unspecified type Qualified Code(s): G47.30 - Sleep apnea , unspecified Is this a current diagnosis for this admission?: Yes - Notes Notes: 2D echo results were discussed. It shows LVEF of approximately 40%. This is somewhat improved from before. Patient informed that she should continue with Midrin and entresto therapy. Hypotension: This has stabilized. Could have been related to pain medication. Continue Midodrin. CHF: Currently seems compensated. Continue with salt and fluid restriction and other supportive management. Cardiomyopathy: 2D echo shows EF of 40%. This seems improved. Continue LifeVest therapy. Continue with carvedilol and Entresto therapy. Will gradually increase doses as tolerated. Paroxysmal atrial fibrillation: Patient claims he is status post ablation. Currently maintaining sinus rhythm. Sleep apnea syndrome: Patient will benefit from continuation of CPAP therapy. - Time Time with patient: Greater than 35 minutes - CODE STATUS was discussed, patient remains full code. Surrogate decision-maker patient's . Multiple medical problems were addressed. More than 50% of the time spent coordinating care, discussing management plans with involved caregivers. Management plans discussed with involved personnels. Medical decision making was of moderate to high complexity, patient's has multiple comorbidities. Medications reviewed and adjusted accordingly: Yes
[2018-03-05] MEDS ORDERED: METOPROLOL SUCCINATE 25 MG TAB.SR.24H PO SCH (22:00)
[2018-03-05] MEDS: PREGABALIN 100 MG CAPSULE PO SCH (22:13)
[2018-03-05] MEDS: ATORVASTATIN CALCIUM 40 MG TABLET PO SCH (22:13)
[2018-03-06] MEDS: OXYCODONE HCL IR 5 MG TABLET PO PRN ×2 (03:26→08:34)
[2018-03-06] MEDS: OXYCODONE-ACETAMINOPHEN 5-325 MG TABLET PO PRN ×2 (03:27→08:34)
[2018-03-06] MEDS: ACETAMINOPHEN 325 MG TABLET PO SCH ×2 (05:48→18:48)
[2018-03-06] MEDS: PREGABALIN 100 MG CAPSULE PO SCH ×3 (05:49→21:09)
[2018-03-06] MEDS: ISOSORB DINIT/HYDRALAZINE HCL 20-37.5 MG TABLET PO SCH ×2 (10:21→21:09)
[2018-03-06] MEDS: DOCUSATE SODIUM 100 MG CAPSULE PO SCH (10:21)
[2018-03-06] MEDS: ASPIRIN 81 MG TABLET, ENT COATED PO SCH (10:22)
[2018-03-06] MEDS: IRON POLYSACCHARIDES COMPLEX 150 MG CAPSULE PO SCH (10:22)
[2018-03-06] MEDS: CARVEDILOL 3.125 MG TABLET PO SCH (10:22)
[2018-03-06] MEDS: APIXABAN 5 MG TABLET PO SCH ×2 (10:23→21:09)
[2018-03-06] MEDS: MIDODRINE HCL 5 MG TABLET PO SCH ×3 (10:23→18:46)
[2018-03-06] MEDS: CYANOCOBALAMIN (VITAMIN B-12) 1,000 MCG TABLET SL SCH (10:23)
[2018-03-06] MEDS: GLIMEPIRIDE 4 MG TABLET PO SCH ×2 (10:24→18:49)
[2018-03-06] MEDS: SACUBITRIL/VALSARTAN 24 MG/26 MG TABLET PO SCH ×2 (10:25→21:08)
[2018-03-06] MEDS: BUMETANIDE 1 MG TABLET PO SCH ×2 (10:25→18:50)
[2018-03-06] MEDS: LIDOCAINE 5% (700 MG) TRANSDERMAL ADH..PATCH TP SCH (10:26)
--- NOTE | 2018-03-06 11:23 | PDOC PROGRESS REPORT ---
Subjective Progress Note for:: 03/06/18 Subjective:: Patient seems to be doing better. Patient encouraged to ambulate. Pt is denying any chest arm or neck discomfort. Patient denying any PND, orthopnea. Patient denied any sustained palpitations, dizziness, syncope, near syncope. Patient denying any fever chills. Patient denying any other significant discomfort. Patient is maintaining sinus rhythm. Review of systems: Rest review of systems negative. Medications: Medications have been reviewed. Reason For Visit: HYPOTENSION HEART FAILURE, CKD4, INTRACTABLE Physical Exam Vital Signs: Temp Pulse Resp BP Pulse Ox 97.9 F 64 16 123/69 100 03/06/18 08:35 03/06/18 08:35 03/06/18 08:35 03/06/18 08:35 03/06/18 08:35 Intake & Output 03/05/18 03/06/18 03/07/18 06:59 06:59 06:59 Intake Total 100 664 Output Total 1775 2100 Balance -1675 -1436 Weight 63.3 kg 63.3 kg Exam: GENERAL: well-nourished and in no acute distress. Alert and oriented x3 HEAD: Atraumatic, normocephalic. EYES: Pupils equal round and reactive to light, extraocular movements intact, sclera anicteric, conjunctiva are normal. ENT: TMs normal, nares patent, oropharynx clear without exudates. Moist mucous membranes. No oral ulcerations or bleeding gums noted NECK: supple without lymphadenopathy. Trachea is central. No cervical or axillary lymphadenopathy noted. Carotids are 2+, JVD WNL LUNGS: Respiration seems nonlabored, no significant accessory muscle action noted. Breath sounds clear to auscultation bilaterally and equal noted. No wheezes rales or rhonchi noted. No significant dullness noted on percussion. CHEST: Palpation of the chest wall shows no significant chest wall tenderness. 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 ABDOMEN: Soft, no significant tenderness appreciated, normoactive bowel sounds. No guarding, no rebound. No rigidity noted . No masses appreciated. EXTREMITIES: Pedal pulses are 1-2+, no calf tenderness noted. No clubbing or cyanosis. negative pedal edema noted NEUROLOGICAL: Focused neurological exam showed no significant neurologic deficit. Normal speech, no focal weakness appreciated. PSYCH: Normal mood, normal affect. Judgment and insight within normal limits. SKIN: No significant ecchymosis, skin is noted to be warm. MUSCULOSKELETAL EXAM: No significant acute joint swelling noted. Results Laboratory Results: 03/05/18 05:07 03/04/18 03/04/18 03/04/18 05:05 05:05 11:11 Creatine Kinase 115 99 CK-MB (CK-2) 0.87 Troponin I 0.019 03/04/18 03/04/18 03/04/18 11:11 17:00 17:00 Creatine Kinase 99 CK-MB (CK-2) 1.06 1.03 Troponin I 0.019 0.018 EKG Comments: Telemetry shows sinus rhythm without any sustained tachycardia or bradycardia Impressions: Chest X-Ray 03/03/18 22:43 IMPRESSION: 1. No acute pulmonary process identified. Assessment & Plan - Diagnosis (1) Hypotension Qualifiers: Hypotension type: unspecified hypotension type Qualified Code(s): I95.9 - Hypotension, unspecified Is this a current diagnosis for this admission?: Yes (2) CHF (congestive heart failure) Is this a current diagnosis for this admission?: Yes (3) Cardiomyopathy Qualifiers: Cardiomyopathy type: unspecified Qualified Code(s): I42.9 - Cardiomyopathy , unspecified Is this a current diagnosis for this admission?: Yes (4) Paroxysmal atrial fibrillation Is this a current diagnosis for this admission?: Yes (5) Sleep apnea syndrome Qualifiers: Sleep apnea type: unspecified type Qualified Code(s): G47.30 - Sleep apnea , unspecified Is this a current diagnosis for this admission?: Yes - Notes Notes: Hypotension: Resolved. Could have been related to pain medication. Continue Midodrin. Gradually increase carvedilol and entresto. Have placed patient on carvedilol 6.25 p.o. twice daily. Patient has been encouraged to ambulate. CHF: Currently seems compensated. Continue with salt and fluid restriction and other supportive management. Cardiomyopathy: 2D echo shows EF of 40%. This seems improved. Continue LifeVest therapy. Continue with carvedilol and Entresto therapy. Will gradually increase carvedilol and entresto dose doses as tolerated. Paroxysmal atrial fibrillation: Patient claims he is status post ablation. Currently maintaining sinus rhythm. Sleep apnea syndrome: Patient will benefit from continuation of CPAP therapy. Patient does follow-up with me in the office. Patient seems stable from cardiac standpoint and seems ready for discharge. Will sign off please call if need to reconsult. - Time Time with patient: Greater than 35 minutes - CODE STATUS was discussed, patient remains full code. Surrogate decision-maker unchanged. Multiple medical problems were addressed. More than 50% of the time spent coordinating care, discussing management plans with involved caregivers. Management plans discussed with involved personnels. Medical decision making was of moderate to high complexity, patient's has multiple comorbidities. Medications reviewed and adjusted accordingly: Yes
[2018-03-06] MEDS: INSULIN LISPRO 100 UNIT/ML 3 ML VIAL SUBCUT PRN ×2 (16:24→21:10)
--- NOTE | 2018-03-06 16:39 | PDOC PROGRESS REPORT ---
Subjective Progress Note for:: 03/06/18 Subjective:: MACRINA MORRISON is a 67 year old male with a past medical history of congestive heart failure with ejection fraction of less than 50% with a LifeVest, atrial fibrillation on Eliquis, COPD, chronic bronchitis, obstructive sleep apnea, stage IV chronic kidney disease and diabetes. He presents with 8 hours of hypotension of 80/50 generalized weakness and acute on chronic sciatic leg pain on the right. In the emergency room he is hypotensive with acute on chronic renal failure and intractable pain, receives 4 tabs of Percocet, Lidoderm patch 2 L of normal saline and referred to the hospitalist. Patient states recent increase of several antihypertensives. Admits minimal dark urine output. Denies chest pain or shortness of breath. Patient much better today and feels the new pain regimen is working. He is requesting to stay to ensure his pain is well controlled before DC Reason For Visit: HYPOTENSION HEART FAILURE, CKD4, INTRACTABLE Physical Exam Vital Signs: Temp Pulse Resp BP Pulse Ox 97.6 F 62 16 97/53 L 99 03/06/18 15:15 03/06/18 15:15 03/06/18 15:15 03/06/18 15:15 03/06/18 15:15 Intake & Output 03/05/18 03/06/18 03/07/18 06:59 06:59 06:59 Intake Total 100 664 600 Output Total 1775 2100 400 Balance -1675 -1436 200 Weight 63.3 kg 63.3 kg General appearance: PRESENT: no acute distress, well-developed, well-nourished Head exam: PRESENT: atraumatic, normocephalic Eye exam: PRESENT: conjunctiva pink, EOMI, PERRLA. ABSENT: scleral icterus Ear exam: PRESENT: normal external ear exam Mouth exam: PRESENT: moist, tongue midline Neck exam: ABSENT: carotid bruit, JVD, lymphadenopathy, thyromegaly Respiratory exam: PRESENT: clear to auscultation shital. ABSENT: rales, rhonchi, wheezes Cardiovascular exam: PRESENT: RRR, other - Life Vest. ABSENT: diastolic murmur , rubs, systolic murmur Pulses: PRESENT: normal dorsalis pedis pul Vascular exam: PRESENT: normal capillary refill GI/Abdominal exam: PRESENT: normal bowel sounds, soft. ABSENT: distended, guarding, mass, organolmegaly, rebound, tenderness Rectal exam: PRESENT: deferred Extremities exam: PRESENT: full ROM. ABSENT: calf tenderness, clubbing, pedal edema Neurological exam: PRESENT: alert, awake, oriented to person, oriented to place , oriented to time, oriented to situation, CN II-XII grossly intact. ABSENT: motor sensory deficit Psychiatric exam: PRESENT: appropriate affect, normal mood. ABSENT: homicidal ideation, suicidal ideation Skin exam: PRESENT: dry, intact, warm. ABSENT: cyanosis, rash Results Laboratory Results: 03/05/18 05:07 03/04/18 03/04/18 03/04/18 05:05 05:05 11:11 Creatine Kinase 115 99 CK-MB (CK-2) 0.87 Troponin I 0.019 03/04/18 03/04/18 03/04/18 11:11 17:00 17:00 Creatine Kinase 99 CK-MB (CK-2) 1.06 1.03 Troponin I 0.019 0.018 Impressions: Chest X-Ray 03/03/18 22:43 IMPRESSION: 1. No acute pulmonary process identified. Assessment & Plan - Diagnosis (1) Cardiomyopathy Qualifiers: Cardiomyopathy type: unspecified Qualified Code(s): I42.9 - Cardiomyopathy , unspecified Is this a current diagnosis for this admission?: Yes (2) Paroxysmal atrial fibrillation Is this a current diagnosis for this admission?: Yes - Time Time Spent with patient: 15-24 minutes Medications reviewed and adjusted accordingly: Yes Anticipated discharge: Home Within: within 48 hours - Inpatient Certification Based on my medical assessment, after consideration of the patient's comorbidities, presenting symptoms, or acuity I expect that the services needed warrant INPATIENT care.: Yes Medical Necessity: Need for Pain Control - Plan Summary Plan Summary: Patient was seen by cardiology due to his cardiomyopathy. He suggested continue midodrine and gradually increase carvedilol and interest to. His ejection fraction is 40%. He also has a LifeVest. He is to follow-up with Dr. Mckeon as outpatient Patient was started on Medrol Dosepak, his oxycodone was increased and he was started on Lyrica by pain management yesterday. So far this seems to have made a remarkable difference as patient is complaining of much less pain today. He does have a follow-up appointment with his orthopedist I believe for definitive management of his severe DJD but in the interim the goal is to control his pain.
[2018-03-06] MEDS ORDERED: MEDROL DOSEPAK (DAY 1 LUNCH & SUPPER) (EDIT AFTER 0800) PO SCH (18:00)
[2018-03-06] MEDS: INSULIN GLARGINE,HUM.REC.ANLOG 300 UNIT/3 ML INSULN.PEN SUBCUT SCH (18:51)
--- NOTE | 2018-03-06 19:10 | CONSULTATION REPORT E ---
Consultation Report NAME: BAM MORRISON : 1950 AGE: 67Y DATE: 03/05/2018 ROOM: 309 A TO: DENIS MCCALLUM M.D. FROM: VICKY ABBASI M.D. Requesting Physician REASON FOR CONSULTATION: Severe pain in back and leg. REQUESTING PHYSICIAN: Dr. Bernstein. CHIEF COMPLAINT: Back pain and right leg pain. HISTORY OF PRESENT ILLNESS: The patient is a 67-year-old male with multiple medical comorbidities, including atrial fibrillation, congestive heart failure, COPD, chronic bronchitis, sleep apnea, and stage IV chronic kidney disease as well as diabetes. The patient also has a 6 year approximate history of low back pain with radiculopathy. The patient reports no particular inciting event but he has been seeing Dr. Morton with [facility] for further evaluation of his low back. He endorses pain in the low back which radiates to the right buttock and then down the lateral aspect of the right leg into his right calf and the bottom of his right foot. The pain is intermittent in nature, though is there every day. The pain is greatly exacerbated by any movement, especially sitting and walking. The pain is alleviated by lying still in a specific position. The patient notes that he has undergone epidural steroid injections. He states the first injection was somewhat helpful for a few weeks but then subsequent injections were not helpful. The patient endorsed that he will be undergoing some additional medial branch nerve block which are planned for after the March 10 holiday. The patient notes no loss of bowel or bladder function. He does have numbness and tingling in the right leg, however. He does have some left-sided numbness and tingling but this is less persistent. With regard to medication the patient is currently taking Percocet and he was using Percocet 10/325 mg tablets every 6 hours at home in combination with extra strength Tylenol twice a day. He states that this was working fairly well. He also is taking gabapentin 800 mg three times a day which he cannot really tell is beneficial. He is fairly limited with other medications due to medical comorbidities. Notably the patient was admitted with hypotension and is currently undergoing cardiac evaluation. PAST MEDICAL HISTORY: 1. Paroxysmal atrial fibrillation. 2. Congestive heart failure, EF of 20% measured in 2017. 3. Coronary artery disease, status post myocardial infarction 12/2016. 4. Hyperlipidemia. 5. Hypertension. 6. COPD. 7. Chronic bronchitis. 8. Obstructive sleep apnea. 9. Type 2 diabetes. 10. GERD. 11. Arthritis. 12. Gout. 13. History of anemia followed by Dr. Ordonez. PAST SURGICAL HISTORY: Rotator cuff repair a number of years ago. SOCIAL HISTORY: The patient is here with his . He denies a history of smoking or alcohol use. Denies any recreational drug use. FAMILY HISTORY: Substantial for diabetes and hypertension. HOME MEDICATIONS: 1. Lipitor. 2. Vitamin B12. 3. Baclofen. 4. Bumetanide. 5. Carvedilol. 6. Cholecalciferol. 7. Colchicine. 8. Glimepiride. 9. Iron. 10. Isosorbide/hydralazine. 11. Magnesium. 12. Nitroglycerin p.r.n. 13. Pantoprazole. 14. Potassium chloride. 15. Spironolactone. 16. Tizanidine. 17. Lidocaine patch. 18. Colace. 19. Percocet 10/325 mg p.o. q.i.d. p.r.n. 20. Zofran. ALLERGIES: PHENERGAN. REVIEW OF SYSTEMS: The patient endorses some fatigue, weakness on admission. He has got low back pain and muscle spasm as well. He denies other review of systems including gastrointestinal upset, chest pain, palpitation, dizziness, or focal weakness. PHYSICAL EXAMINATION: VITAL SIGNS: Pain score 4/5. Blood pressure 121/70, pulse 78, respirations 18, afebrile. GENERAL: The patient is very pleasant, well-developed, well-nourished male who is lying in his bed in no acute distress. He does have quite a bit of pain, however, with any movement. HEENT: Head is normocephalic, atraumatic. CHEST: Even unlabored work of breathing. CARDIAC: Pulse is currently regular. GASTROINTESTINAL: Abdomen is soft, nontender, nondistended. MUSCULOSKELETAL: The patient is not overtly tender to palpation in the lower back though he does have some taught muscular bands in bilateral paravertebral musculature. He is able to move legs without difficulty and has normal strength throughout. There is no tenderness to palpation along the leg. NEUROLOGIC: The patient does have exacerbation of pain with straight leg raise. There is mild sensory disturbance along the lateral aspect of the entire right leg including the right upper thigh, right calf, and the bottom of the foot to soft touch. Strength is 5/5 bilaterally in all muscle groups of the lower extremity. Reflexes are 1+ and symmetric in patella and Achilles region. EXTREMITIES: No swelling. DIAGNOSTICS: The patient does have an MRI performed at an outside medical facility dated 02/24/2018. It demonstrates multilevel degenerative disk disease most prominent at L5-S1 with bilateral foraminal narrowing and lateral recessed stenosis along the right S1 nerve root consistent with the patient's symptoms. Other labs; creatinine 4.21 elevated. ASSESSMENT: 1. Lumbar radiculopathy. 2. Lumbar degenerative disk disease. 3. Chronic pain syndrome. PLAN: The patient is a pleasant 67-year-old male who unfortunately has multiple medical comorbidities since his complicated treatment for lumbar radiculopathy due to degenerative disk disease and degenerative spondylosis. The patient's hypotensive episode led into admission has been resolving and he is currently gone with cardiology. He does have stage 4 renal disease. The patient has plans to follow up with his pain management doctor at an outside facility following discharge for additional interventional therapy. As such, at this point we will try to do what we can to temporize the current situation. Given the sudden and substantial flare of radicular pain recommend a short course of oral steroids. I have spoken to the patient's admitting physician given the patient's history of diabetes to ensure that the patient is adequately covered with sliding scale and basal insulin. Additionally I recommend increasing the frequency of Percocet 10/325 mg from q.12 hours to q.6 hours and adding scheduled acetaminophen 1000 mg p.o. b.i.d. Additionally recommend continuation of Lidoderm patch and switch from gabapentin to pregabalin 100 mg p.o. t.i.d. to see if we can provide some additional radicular pain benefit. Thank you very much for this interesting consultation. I will continue to follow along with the patient. DICTATING PHYSICIAN: DENIS MCCALLUM M.D. [id number] PHY#: [id number] ID: [id number] JOB#: [id number] ACCT: [id number] cc:DENIS MCCALLUM M.D. >
[2018-03-06] MEDS: ATORVASTATIN CALCIUM 40 MG TABLET PO SCH (21:09)
[2018-03-06] MEDS: CARVEDILOL 6.25 MG TABLET PO SCH (21:09)
[2018-03-06] MEDS ORDERED: MEDROL DOSEPAK (DAY 1 BEDTIME DOSE) (EDIT AFTER 0800) PO SCH (22:00)
--- NOTE | 2018-03-06 22:55 | CONSULTATION REPORT E ---
Consultation Report NAME: BAM MORRISON : 1950 AGE: 67Y DATE: 03/04/2018 ROOM: 309 A TO: DIPAK BHAKTA M.D. FROM: VICKY ABBASI M.D. Requesting Physician HISTORY OF PRESENT ILLNESS: The patient is a 67-year-old -[place]ov[place] male with a history of congestive heart failure, cardiomyopathy, coronary artery disease, paroxysmal atrial fibrillation on Eliquis, COPD, obstructive sleep apnea on CPAP, chronic kidney disease, and diabetes mellitus states that at home he felt very weak and lightheaded and his blood pressure was like in the 80/50 and also complained of right leg pain and he was brought to the emergency room. The patient recently has increased his Entresto from 24/26 mg to a higher dose which is double his dose. This was done about 3 days ago. The patient denies any increase in his shortness of breath. There is no PND, orthopnea. There is no leg edema. There is no firing of his LifeVest. There is no chest pain or discomfort. There are no TIA or CVA symptoms. There is no bleeding on Eliquis. There are no palpitations. There are no symptoms of atrial fibrillation. PAST MEDICAL HISTORY: Positive for a history of hypertension, at present his blood pressure is low. He has a history of mitral valve prolapse in the past, trace mitral regurgitation but this is not reported in the subsequent echocardiogram in 12/2016. He has a past history of cardiomyopathy with an LV ejection fraction of 25%. We will recheck to see what he patient's LV ejection fraction is at present. He states he has a history of coronary artery disease. No history of RI. No angina. He has a history of nonsustained ventricular tachycardia with no recurrence and, hence, he is on a LifeVest. He also has a history of supraventricular tachycardia and paroxysmal atrial fibrillation. He denies any recent palpitation. He has a history of chronic kidney disease stage 3. He also has a history of diabetes mellitus. He also has a history of sleep apnea, he uses a CPAP. There is no history of thyroid disease. In 12/2016 he had an elevated troponin I and was diagnosed with a non-ST elevation RI and he was transferred to [facility] where he had a nuclear Cardiolite stress test which showed no reversible ischemia and showed cardiomyopathy with an LV ejection fraction of 30%. He has no history of TIA or CVA. There is no history of pulmonary embolism. He was started on Eliquis by [place]. In [place] he was diagnosed with a supraventricular tachycardia also and paroxysmal atrial fibrillation. He was also seen in [place]. He underwent a right heart cath in [place] in 12/2016 where his right ventricular systolic pressure was 62 with a range of 37. He was asked to go back to [place] in 45 days for consideration of placement of an AICD. He has no history of anxiety or depression. The patient has not had a history of TIA or CVA. The patient has not gone back to [place] for an AICD, he is still on a LifeVest. PAST SURGICAL HISTORY: He has had a left hand and wrist surgery, vasectomy, cardiac catheterization and AICD placement. He also had right rotator cuff surgery and also right heart catheterization. ALLERGIES: He is allergic to PROMETHAZINE. ADVANCE DIRECTIVES: He is a full code. His is the surrogate healthcare decision maker. SOCIAL HISTORY: The patient does not smoke. There is no history of EtOH abuse. REVIEW OF SYSTEMS: CONSTITUTIONAL: Denies any fever, chills. or rigors. Complains of generalized fatigue and weakness. HEAD: Denies headaches or head injury. EYES: There is no history of amblyopia or diplopia. No history of amaurosis fugax. EARS: There is no history of hearing loss. There is no tinnitus. There is recurrent ear infection. NOSE: No history of hay fever. No history of nosebleeds. No history nasal polyps. MOUTH: No altered taste sensation. No ulcers in the mouth. No bleeding from the gums. THROAT: There is no odynophagia or dysphagia. No recurrent sore throats. SKIN: No pruritus. No yellowish discoloration of the skin. No edema. No history of skin cancer. NECK: No history of neck pain. No history of lymphadenopathy. No history of goiter. LUNGS: No history of asthma or COPD. No history of pulmonary embolism. No history of hemoptysis. No history of wheezing. No history of symptom of upper respiratory infection or lower respiratory infection. He has no orthopnea. He denies any cough. He has a history of sleep apnea and uses CPAP at night. CARDIAC: History of hypertension. History of dilated cardiomyopathy. No history of RI or anginal symptoms. History of CAD , but no angina.Past history of paroxysmal atrial fibrillation and SVT, the patient is on Eliquis. Past history of nonsustained ventricular tachycardia, the patient is on a LifeVest. The patient denies any palpitation, near syncope, syncope, or dizziness. There is no history of sudden . Although, it is very confusing, that the patient thinks he has paroxysmal atrial fibrillation, in 2017 when I saw the patient I went through the records and in [place] it was said that the patient had SVT, there was no mention of atrial fibrillation or flutter, but the patient is very confident that he has paroxysmal atrial fibrillation and, hence, he is on Eliquis. There are no recent symptoms of heart failure. Recent symptom of hypotension due to increase in his Entresto dosage. Note the patient is also on midodrine 2.5 mg p.o. t.i.d. GASTROINTESTINAL: History of GERD present which is occasional and he uses pantoprazole on a p.r.n. basis. No history of GI bleed. No history of jaundice. There is no history of fatty food intolerance. No history of altered bowel movements. No history of jaundice. No history of cirrhosis. No history of hepatitis. No history of abdominal pain. No history of GI bleed. MUSCULOSKELETAL: Denies any history of arthritis or collagen vascular disease. METABOLIC: He has a history of hyperlipidemia and also has a history of gout. RENAL: History of chronic kidney disease stage 3. No history of symptom of UTI. No hematuria, pyuria, or dysuria. ENDOCRINE: History of diabetes mellitus, insulin dependent. No history of polydipsia or polyuria. No history of heat or cold intolerance. No history of thyroid disorder. CENTRAL NERVOUS SYSTEM: No history of TIA or CVA. No history of headaches, migraines, or seizures. History of sleep apnea on CPAP. PSYCHIATRIC: No history of anxiety or depression. No history of homicidal ideation or suicidal ideation. VASCULAR: No history of calf or buttock claudication. No history of DVT. HEMATOLOGICAL: No history of bleeding diathesis. No history of clotting disorders. MEDICATIONS: 1. Tylenol 975 mg p.o. q.12 hours. 2. Eliquis 2.5 mg p.o. q.12 hours. 3. Aspirin 81 mg p.o. daily. 4. Atorvastatin 40 mg p.o. at bedtime. 5. Bumex 0.5 mg p.o. b.i.d. 6. Rocaltrol 0.25 mcg p.o. Thursday, Thursday, Thursday. 7. Coreg 6.25 mg p.o. q.12 hours. 8. Cyanocobalamin 1000 mcg daily. 9. Hypoglycemic precautions with glutose 40% gel, 15 grams and 30 grams p.o. p.r.n. hypoglycemia. 10. Dextrose 50%, 12.5 grams and 25 grams IV p.r.n. hypoglycemia. 11. Glucagon 1 mg IM p.r.n. hypoglycemia. 12. Lantus insulin 5 units subcutaneously q.p.m. 13. Accu-Chek a.c., t.i.d., and bedtime with sliding scale insulin coverage. 14. Iron polysaccharide 150 mg p.o. daily. 15. Isosorbide dinitrate/hydralazine 0.5 mg tablet p.o. q.12 hours. 16. Lidocaine 1 patch topically daily. 17. Methylprednisolone Medrol Dosepak as per dose. 18. Midodrine 2.5 mg p.o. t.i.d. 19. Oxycodone 5 mg p.o. q.i.d. p.r.n. 20. Lyrica 100 mg p.o. q.8 hours. 21. Entresto 49/51 mg p.o. q.12 hours. PHYSICAL EXAMINATION: GENERAL: On examination the patient is well-built, but appears to be chronically ill, in no acute distress. VITAL SIGNS: He is afebrile with a temperature of 97.9 degrees Fahrenheit, pulse is 62 beats per minute, blood pressure is 94/43, respirations are 20 per minute, O2 saturations are 96% on room air. HEENT: Head is atraumatic, normocephalic. Eyes: Pupils are equal, round and regular, reactive to light and accommodation. Extraocular movements are normal. There is no conjunctival pallor. There is no scleral icterus. Ears: Tympanic membranes are intact, external auditory canals are clear. Nose: There is no deviated nasal septum. There is no inflammation of the nasal mucous membrane. Mouth: Mucous membranes of the mouth are moist. Tongue is moist. There are no ulcers. There is no bleeding from the gums. Throat: There is no redness of the oropharynx. There are no exudates. SKIN: There is no skin lesion or skin rashes. There is no petechiae or ecchymosis. NECK: Supple. There is no JVD. There is no lymphadenopathy. There is no goiter. Carotids are equal. There is no bruit. LUNGS: Clear to auscultation and percussion without any rhonchi, rales, or wheezing. HEART: S1, S2 is heard. There is no S3 gallop. There is no S4 gallop. There is a systolic murmur in the left sternal border and the apex. There is no rub. ABDOMEN: Soft, nontender. There is no hepatosplenomegaly. Bowel sounds are well heard. EXTREMITIES: Femorals are slightly diminished. Leg pulses are diminished. There is no pedal edema. There is no DVT or cellulitis. There is no calf tenderness. CENTRAL NERVOUS SYSTEM: The patient is conscious, awake, alert and oriented x3 with no focal deficits. PSYCHIATRIC: The patient's judgment and insight are intact. His affect is normal. DIAGNOSTICS: The patient's chest x-ray shows no acute cardiopulmonary process. The patient's EKG shows sinus rhythm, left anterior fascicular block, borderline T abnormalities diffusely with T flattening. The patient's white count is 5600, hemoglobin is 9.7, hematocrit is 30.7, platelet count is 136,000. The patient's sodium is 141.7, potassium 5.1, chloride is 100, CO2 is 31. The patient's BUN is 75, creatinine is 4.21, GFR is reduced at 17 mL which is progressive chronic kidney disease stage 4. His glucose is 217. His lactic acid is 1.4. His cardiac enzymes are negative and troponin I is negative a 0.024 and 0.019. His albumin is 4.2, total protein is 6. Liver functions are normal. His calcium is 9.4, total bilirubin is 0.4. The patient's white count is 6900, hemoglobin is 10.2, hematocrit is 31.5, platelet count is 120,000. IMPRESSION: 1. Hypotension, most likely secondary to the patient's Entresto. We will go back to the patient's original dose of Entresto. 2. Paroxysmal atrial fibrillation/flutter, at present in sinus. We will continue the patient on his current medication including Coreg and also we will continue the patient on his Eliquis. 3. Cardiomyopathy. 4. Diabetes mellitus. 5. History of supraventricular tachycardia. 6. Chronic kidney disease stage 4. 7. Obstructive sleep apnea on CPAP. 8. Coronary Artery Disease, by history .No angina. RECOMMENDATIONS: As mentioned earlier, we will increase the patient's midodrine to 5 mg p.o. t.i.d. and decrease the patient's Entresto. Continue his other current medications including Eliquis.Will check echo to see f he needs AICD placement. Note that his medications have been reviewed. Note medical decision making is of high complexity. Discussed with the patient and with the patient's attending physician on the case. Will follow with you. TIME SPENT: The patient seen at 12 noon on 03/04/2018. Fifty-five minutes spent on this patient with more than 50% of the time spent on direct patient care. His old records were also reviewed by me. DICTATING PHYSICIAN: DIPAK BHAKTA M.D. [id number] TANISHAY#: [id number] ID: [id number] JOB#: [id number] ACCT: [id number] cc:DIPAK BHAKTA M.D. > MTDD
[2018-03-07] MEDS: ACETAMINOPHEN 325 MG TABLET PO SCH ×2 (06:02→18:56)
[2018-03-07] MEDS: PREGABALIN 100 MG CAPSULE PO SCH ×3 (06:03→21:22)
[2018-03-07 06:12] LABS: ABSOLUTE LYMPHOCYTES (AUTO) 0.7 10^3/uL (0.5-4.7); ABSOLUTE MONOCYTES (AUTO) 0.2 10^3/uL (0.1-1.4); ABSOLUTE NEUT (AUTO) 6.5 10^3/uL (1.7-8.2); BASOPHILS % (AUTO) 0.4 % (0-2); HEMATOCRIT 33.3 % (37.9-51.0); HEMOGLOBIN 10.5 g/dL (13.5-17.0); LYMPHOCYTES % (AUTO) 9.9 % (13-45); MEAN CORPUSCULAR HEMOGLOBIN 25.3 pg (27.0-33.4); MEAN CORPUSCULAR HGB CONC 31.6 g/dL (32.0-36.0); MEAN CORPUSCULAR VOLUME 80 fl (80-97); MONOCYTES % (AUTO) 2.5 % (3-13); PLATELET COUNT 108 10^3/uL (150-450); RED BLOOD COUNT 4.14 10^6/uL (4.35-5.55); RED CELL DISTRIBUTION WIDTH 14.7 % (11.5-14.0); SEGMENTED NEUTROPHILS % (AUTO) 87.2 % (42-78); TOTAL CELLS COUNTED % (AUTO) 100 %; WHITE BLOOD COUNT 7.4 10^3/uL (4.0-10.5)
[2018-03-07 06:36] LABS: ANION GAP 9 (5-19); BLOOD UREA NITROGEN 50 mg/dL (7-20); CALCIUM 9.7 mg/dL (8.4-10.2); CARBON DIOXIDE 27 mmol/L (22-30); CHLORIDE 107 mmol/L (98-107); GLUCOSE 208 mg/dL (75-110); POTASSIUM 5.4 mmol/L (3.6-5.0); SODIUM 143.4 mmol/L (137-145)
[2018-03-07] MEDS: INSULIN LISPRO 100 UNIT/ML 3 ML VIAL SUBCUT PRN ×3 (08:22→21:22)
[2018-03-07] MEDS: MEDROL DOSEPAK (DAY 2 BRKFST, LUNCH, SUPPER) PO SCH ×3 (08:28→18:57)
[2018-03-07] MEDS: BUMETANIDE 1 MG TABLET PO SCH ×2 (09:03→18:57)
[2018-03-07] MEDS: SACUBITRIL/VALSARTAN 24 MG/26 MG TABLET PO SCH ×2 (09:05→21:22)
[2018-03-07] MEDS: MIDODRINE HCL 5 MG TABLET PO SCH ×3 (09:06→18:56)
[2018-03-07] MEDS: ASPIRIN 81 MG TABLET, ENT COATED PO SCH (09:06)
[2018-03-07] MEDS: DOCUSATE SODIUM 100 MG CAPSULE PO SCH (09:06)
[2018-03-07] MEDS: IRON POLYSACCHARIDES COMPLEX 150 MG CAPSULE PO SCH (09:06)
[2018-03-07] MEDS: CARVEDILOL 6.25 MG TABLET PO SCH ×2 (09:07→21:22)
[2018-03-07] MEDS: GLIMEPIRIDE 4 MG TABLET PO SCH ×2 (09:07→18:59)
[2018-03-07] MEDS: CYANOCOBALAMIN (VITAMIN B-12) 1,000 MCG TABLET SL SCH (09:07)
[2018-03-07] MEDS: APIXABAN 5 MG TABLET PO SCH ×2 (09:07→21:22)
[2018-03-07] MEDS: ISOSORB DINIT/HYDRALAZINE HCL 20-37.5 MG TABLET PO SCH ×2 (09:08→21:22)
[2018-03-07] MEDS: LIDOCAINE 5% (700 MG) TRANSDERMAL ADH..PATCH TP SCH (09:09)
--- NOTE | 2018-03-07 13:05 | PROGRESS NOTE E ---
Progress Note NAME: BAM DAUGHERTY : 1950 AGE: 67Y DATE: 03/07/2018 ROOM: 309 SUBJECTIVE: Mr. Daugherty is out of bed and into the bedside chair. He states he feels fantastic today compared to where he was when he came in. The patient denies any nausea, vomiting, diarrhea. No shortness of breath, dizziness, chest pain, no fever or chills. The patient has been afebrile. His blood pressure has been in a good range and patient has not voiced any other concerns at this time. REVIEW OF SYSTEMS: The rest of review of systems is negative. MEDICATIONS: Medications have been reviewed. OBJECTIVE: GENERAL: The patient is a 67 year-old -[place]oc[place] male, who is awake, alert and oriented to person, place, time and situation. He is verbal to conversation. Does not appear to be in any acute distress. VITAL SIGNS: Are as follows: Temperature is 98.1, pulse 88, respirations 16, blood pressure 132/68, oxygen saturation 100% on room air. SKIN: Warm and dry. No rash. Not diaphoretic. HEENT: Pupils equal, round and reactive to light and accommodation. Conjunctivae are pink. There is no evidence of JVP. CVS: Heart is regular. There is no murmur or rub. CHEST: Clear, symmetrical, unlabored. ABDOMEN: Soft, nontender, nondistended. BACK: No CVA tenderness or sacral edema. EXTREMITIES: No clubbing, cyanosis or edema. PSYCHIATRIC: Appropriate affect. Pleasant mood. DIAGNOSTICS: Lab values are as follows: Hematology obtained on 03/07/2018: WBC is 7.4, hemoglobin 7.5, hematocrit is 33.3, platelet count is 108,000. Chemistry obtained on 03/07/2018: Sodium is 143, potassium 5.4, chloride 107, carbon dioxide of 27, BUN 50, creatinine is 1.98. Glucose 208, calcium is 9.7. IMPRESSION AND PLAN: 1. CHRONIC SYSTOLIC AND DIASTOLIC CONGESTIVE HEART FAILURE WITH CARDIOMYPATHY. The patient is wearing a life vest. He is being followed by cardiology. Medications have been adjusted and managed as per cardiology. Will follow. 2. PAROXYSMAL ATRIAL FIBRILLATION. Patient continues in sinus rhythm at this point. 3. HYPOTENSION. Appeared to be due to hypovolemia as well as medications. This is overall much-improved, especially with Midodrine. 4. CHRONIC KIDNEY DISEASE, STAGE-III. The patient's creatinine has returned to baseline of 1.98. Will follow chemistries. 5. DIABETES MELLITUS TYPE-2. Will continue sliding scale coverage. 6. LUMBAR RADICULOPATHY WITH DEGENERATIVE DISK DISEASE AND CHRONIC PAIN SYNDROME. Medications as per Dr. Zuñiga with Pain Management. DISPOSITION: Patient is a FULL CODE. Pending patient's symptomatology and diagnostic findings, will reevaluate in the a.m. Time spent on this followup, including assessment, plan, physical examination, patient education and review of records and family meeting is 25 minutes. DICTATING PHYSICIAN: CHITO ANDREWS NP [id number] PHY#: [id number] ID: [id number] JOB#: [id number] ACCT: [id number] cc: > MTDD
[2018-03-07] MEDS: INSULIN GLARGINE,HUM.REC.ANLOG 300 UNIT/3 ML INSULN.PEN SUBCUT SCH (18:54)
[2018-03-07] MEDS: ATORVASTATIN CALCIUM 40 MG TABLET PO SCH (21:22)
[2018-03-07] MEDS ORDERED: MEDROL DOSEPAK (DAY 2 HS) PO SCH (22:00)
[2018-03-08] MEDS: PREGABALIN 100 MG CAPSULE PO SCH ×2 (06:09→14:06)
[2018-03-08] MEDS: ACETAMINOPHEN 325 MG TABLET PO SCH (06:09)
[2018-03-08] MEDS: INSULIN LISPRO 100 UNIT/ML 3 ML VIAL SUBCUT PRN ×2 (07:59→12:13)
[2018-03-08] MEDS ORDERED: MEDROL DOSEPAK (DAY 3) PO SCH (08:00)
[2018-03-08] MEDS ORDERED: CHOLECALCIFEROL (D3) 1,000 UNIT TABLET PO SCH (10:00)
[2018-03-08] MEDS: MIDODRINE HCL 5 MG TABLET PO SCH ×2 (11:24→14:06)
[2018-03-08] MEDS: APIXABAN 5 MG TABLET PO SCH (11:25)
[2018-03-08] MEDS: BUMETANIDE 1 MG TABLET PO SCH (11:25)
[2018-03-08] MEDS: CYANOCOBALAMIN (VITAMIN B-12) 1,000 MCG TABLET SL SCH (11:26)
[2018-03-08] MEDS: ISOSORB DINIT/HYDRALAZINE HCL 20-37.5 MG TABLET PO SCH (11:26)
[2018-03-08] MEDS: ASPIRIN 81 MG TABLET, ENT COATED PO SCH (11:26)
[2018-03-08] MEDS: IRON POLYSACCHARIDES COMPLEX 150 MG CAPSULE PO SCH (11:26)
[2018-03-08] MEDS: SACUBITRIL/VALSARTAN 24 MG/26 MG TABLET PO SCH (11:27)
[2018-03-08] MEDS: CARVEDILOL 6.25 MG TABLET PO SCH (11:27)
[2018-03-08] MEDS: LIDOCAINE 5% (700 MG) TRANSDERMAL ADH..PATCH TP SCH (11:34)
[2018-03-08] MEDS: DOCUSATE SODIUM 100 MG CAPSULE PO SCH (11:42)
[2018-03-08] MEDS: GLIMEPIRIDE 4 MG TABLET PO SCH (12:05)
--- NOTE | 2018-03-08 12:43 | RADIOLOGY REPORT (SQ) ---
EXAM DESCRIPTION: NM CARDIAC 1ST PASS COMPLETED DATE/TIME: 03/08/2018 12:27 pm REASON FOR STUDY: Cardiomyopathy (1ST PASS WITH RV/LV EF PER DR. MARCOS) COMPARISON: Echocardiogram 03/05/2018 Resting in a 04/11/2016 RADIONUCLIDE AND DOSE: 25 mCi technetium 99m labeled red blood cells The route of agent administration: Intravenous TECHNIQUE: Following administration of the radionuclide, gated images of the heart are obtained in t hree projections. Right ventricular and Left ventricular functional analysis performed. LIMITATIONS: None. FINDINGS: RIGHT VENTRICULAR EJECTION FRACTION: 1st pass right ventricular ejection fraction was calculated at 39%. LEFT VENTRICULAR FUNCTION: EJECTION FRACTION: 52%. END-DIASTOLIC VOLUME: 203 mL. END-SYSTOLIC VOLUME: 96 mL. WALL MOTION: No focal wall motion abnormalities. OTHER: No other significant finding. IMPRESSION: Right ventricular ejection fraction estimated at 39% Left ventricular ejection fraction estimated at 52%. There is a dilated left ventricle with elevated end systolic and end-diastolic volumes as above. TECHNICAL DOCUMENTATION: JOB ID: [id number] [employer]- All Rights Reserved Reading location - IP/workstation name: [email or web address]
[2018-03-08 13:01] LABS: ANION GAP 13 (5-19); BLOOD UREA NITROGEN 65 mg/dL (7-20); CALCIUM 10.2 mg/dL (8.4-10.2); CARBON DIOXIDE 28 mmol/L (22-30); CHLORIDE 104 mmol/L (98-107); GLUCOSE 176 mg/dL (75-110); POTASSIUM 4.7 mmol/L (3.6-5.0); SODIUM 144.8 mmol/L (137-145)
[2018-03-08 15:24] VITALS: BP 127/56
--- NOTE | 2018-03-08 19:27 | PDOC DISCHARGE SUMMARY ---
General - Admit/Disc Date/PCP Admission Date/Primary Care Provider: 03/04/18 03:52 RUFINA LOWRY MD Consulting System Support Developer: Dr. Linder Consulting Offal Baler: Dr. Hernandez Orthopedic Surgeon: Dr. Morton Outpatient Heart Failure Specialist: Dr. Little at [facility] Discharge Date: 03/08/18 - Discharge Diagnosis (1) Hypotension Is this a current diagnosis for this admission?: Yes (2) Acute renal failure superimposed on stage 3 chronic kidney disease Is this a current diagnosis for this admission?: Yes (3) Systolic and diastolic CHF, chronic Is this a current diagnosis for this admission?: Yes (4) Cardiomyopathy Is this a current diagnosis for this admission?: Yes (5) Paroxysmal atrial fibrillation Is this a current diagnosis for this admission?: Yes (6) Anemia of chronic disease Is this a current diagnosis for this admission?: Yes (7) Anticoagulated Is this a current diagnosis for this admission?: Yes (8) Diabetes type 2, controlled Is this a current diagnosis for this admission?: Yes (9) Hypertension Is this a current diagnosis for this admission?: Yes (10) Diabetes mellitus type 2 in nonobese Is this a current diagnosis for this admission?: Yes (11) HLD (hyperlipidemia) Is this a current diagnosis for this admission?: Yes (12) Obstructive sleep apnea Is this a current diagnosis for this admission?: Yes (13) Pulmonary hypertension Is this a current diagnosis for this admission?: Yes (14) Sleep apnea syndrome Is this a current diagnosis for this admission?: Yes (15) Extrapyramidal disease and abnormal movement disorder Is this a current diagnosis for this admission?: No (16) Chronic pain Is this a current diagnosis for this admission?: Yes (17) Cardiac arrhythmia, unspecified Is this a current diagnosis for this admission?: No - Additional Information Resuscitation Status: Full Code Discharge Diet: Cardiac, Diabetic Discharge Activity: Activity As Tolerated, Balance Activity w/Rest, Weigh Daily Prescriptions: Apixaban [Eliquis] 2.5 mg PO Q12 #60 tablet Carvedilol [Coreg 6.25 mg Tablet] 6.25 mg PO Q12 #60 tablet Lidocaine [Lidoderm 5% (700 mg) Transdermal Patch] 1 patch TP DAILY #14 adh..patch Midodrine HCl [Proamatine 5 mg Tablet] 5 mg PO TID #90 tablet Oxycodone HCl/Acetaminophen [Percocet 10-325 mg Tablet] 1 tab PO QIDP PRN #50 tablet PRN Reason: BREAKTHROUGH PAIN Pregabalin [Lyrica 50 Mg Capsule] 50 mg PO TID #42 capsule Sacubitril/Valsartan [Entresto 24 mg/26 mg Tablet] 1 tab PO Q12 #60 tablet Walker [Folding Walker] 1 each MC ASDIR PRN #1 each PRN Reason: Home Medications: Aspirin [Adult Low Dose Aspirin EC] 81 mg PO DAILY 03/04/18 Atorvastatin Calcium [Lipitor 40 mg Tablet] 40 mg PO QHS 03/04/18 Bumetanide [Bumex 0.5 mg Tablet] 0.5 mg PO BID 03/04/18 Calcitriol [Rocaltrol 0.25 mcg Capsule] 0.25 mcg PO MOWEFR 03/04/18 Cholecalciferol (Vitamin D3) [Vitamin D3 1000 Unit Tablet] 1,000 unit PO DAILY 03/04/18 Cyanocobalamin (Vitamin B-12) [Vitamin B-12] 1,000 mcg SL DAILY 03/04/18 Glimepiride [Amaryl 4 mg Tablet] 4 mg PO BID 03/04/18 Insulin Glargine,Hum.rec.anlog [Lantus Solostar] 5 units SQ QPM 03/04/18 Iron Ps Complex/B12/Folic Acid [Ferrex 150 Forte Capsule] 1 cap PO DAILY Isosorb Dinit/Hydralazine HCl [Bidil 20-37.5 mg Tablet] 0.5 mg PO BID 03/04/18 Nitroglycerin [Nitrostat 0.4 mg (1/150 Gr) Tabs 25/Bottle] 0.4 mg SL Q5MP PRN Apixaban [Eliquis] 2.5 mg PO Q12 #60 tablet 03/08/18 Carvedilol [Coreg 6.25 mg Tablet] 6.25 mg PO Q12 #60 tablet 03/08/18 Insulin Glargine,Hum.rec.anlog [Lantus Solostar] 20 units SQ QAM #0 03/08/18 Lidocaine [Lidoderm 5% (700 mg) Transdermal Patch] 1 patch TP DAILY #14 adh..patch 03/08/18 Methylprednisolone [Medrol Dosepack (4 mg/Tab) 21 Tab/Dosepak] 0 tab PO .PER PKG DIRECTIONS dspk 03/08/18 Midodrine HCl [Proamatine 5 mg Tablet] 5 mg PO TID #90 tablet 03/08/18 Oxycodone HCl/Acetaminophen [Percocet 10-325 mg Tablet] 1 tab PO QIDP PRN #50 tablet 03/08/18 Pregabalin [Lyrica 50 Mg Capsule] 50 mg PO TID #42 capsule 03/08/18 Sacubitril/Valsartan [Entresto 24 mg/26 mg Tablet] 1 tab PO Q12 #60 tablet 03/08 Walker [Folding Walker] 1 each MC ASDIR PRN #1 each 03/08/18 History of Present Illness Patient complains of: Right leg pain and hypotension. History of Present Illness: BAM MORRISON is a 67 year old male with a past medical history of congestive heart failure with a LifeVest, atrial fibrillation on Eliquis, COPD, chronic bronchitis, obstructive sleep apnea, stage IV chronic kidney disease and diabetes. Patient presented to the emergency department with 8 hours of hypotension of 80/50 generalized weakness and acute on chronic sciatic leg pain on the right. In the emergency room he is hypotensive with acute on chronic renal failure and intractable pain, receives 4 tabs of Percocet, Lidoderm patch 2 L of normal saline and referred to the hospitalist. Patient states recent increase of several antihypertensives. Admits minimal dark urine output. Denies chest pain or shortness of breath. Hospital Course Hospital Course: The patient was admitted IMCU. The patient was gently hydrated and the patient' s blood pressures improved significantly with hydration however the patient was still hypotensive. She has blood pressure was very difficult to correct in spite of the patient being optivolemic. Given the patient's persistently marginal blood pressure the patient was started on Minodrine by cardiology. Patient's diuresis was held as well. Patient's creatinine returned to his baseline as the patient's admitting creatinine was in the 4 range. 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 Alba. Patient's Coreg, Entresto, and Bumex dose was decreased. The patient did undergo MUGA scan which showed significant improvement of the patient's EF please see attached report. These findings the patient was advised to stop his LifeVest for now. I have made a follow-up appointment with the heart failure team. Patient will turn his device in on follow-up. The patient's Eliquis dose was changed for his renal function. Patient has had chronic lower back pain which is being followed by Dr. Barnett. The patient is to undergo her procedure to the area for nerve block. Until this date the patient was uncertain of how to continue to deal with the pain. The patient was seen and evaluated by Dr. Hernandez with pain management while in the hospital. Changes have been made within the patient's pain medication regimen to get him through to his surgery. Patient has had significant benefit. Selected Entries 03/08/18 11:31 Blood Pressure 126/73 H 03/03/18 03/08/18 22:55 12:25 Creatinine 4.21 H 1.77 H Physical Exam Vital Signs: Temp Pulse Resp BP Pulse Ox 97.6 F 68 18 126/73 H 100 03/08/18 11:31 03/08/18 11:31 03/08/18 11:31 03/08/18 11:31 03/08/18 11:31 Intake & Output 03/06/18 03/07/18 03/08/18 23:59 23:59 23:59 Intake Total 1464 988 214 Output Total 1200 1300 640 Balance 959 -677 -351 Weight 63.3 kg 63.3 kg 63.3 kg General appearance: PRESENT: no acute distress, well-developed, well-nourished Head exam: PRESENT: atraumatic, normocephalic Eye exam: PRESENT: conjunctiva pink, EOMI, PERRLA. ABSENT: scleral icterus Ear exam: PRESENT: normal external ear exam Mouth exam: PRESENT: moist Respiratory exam: PRESENT: clear to auscultation shital Cardiovascular exam: PRESENT: RRR GI/Abdominal exam: ABSENT: distended Rectal exam: PRESENT: deferred Extremities exam: ABSENT: pedal edema Neurological exam: PRESENT: alert, awake, oriented to person, oriented to place , oriented to time, oriented to situation, CN II-XII grossly intact. ABSENT: motor sensory deficit Psychiatric exam: PRESENT: appropriate affect, normal mood. ABSENT: homicidal ideation, suicidal ideation Skin exam: PRESENT: dry, intact, warm. ABSENT: cyanosis, rash Results Laboratory Results: Labs- Last Values WBC 7.4 10^3/uL (4.0-10.5) 03/07/18 05:06 RBC 4.14 10^6/uL (4.35-5.55) L 03/07/18 05:06 Hgb 10.5 g/dL (13.5-17.0) L 03/07/18 05:06 Hct 33.3 % (37.9-51.0) L 03/07/18 05:06 MCV 80 fl (80-97) 03/07/18 05:06 MCH 25.3 pg (27.0-33.4) L 03/07/18 05:06 MCHC 31.6 g/dL (32.0-36.0) L 03/07/18 05:06 RDW 14.7 % (11.5-14.0) H 03/07/18 05:06 Plt Count 108 10^3/uL (150-450) L 03/07/18 05:06 Seg Neutrophils % 87.2 % (42-78) H 03/07/18 05:06 Lymphocytes % 9.9 % (13-45) L 03/07/18 05:06 Monocytes % 2.5 % (3-13) L 03/07/18 05:06 Eosinophils % 0.0 % (0-6) 03/07/18 05:06 Basophils % 0.4 % (0-2) 03/07/18 05:06 Absolute Neutrophils 6.5 10^3/uL (1.7-8.2) 03/07/18 05:06 Absolute Lymphocytes 0.7 10^3/uL (0.5-4.7) 03/07/18 05:06 Absolute Monocytes 0.2 10^3/uL (0.1-1.4) 03/07/18 05:06 Absolute Eosinophils 0.0 10^3/uL (0.0-0.6) 03/07/18 05:06 Absolute Basophils 0.0 10^3/uL (0.0-0.2) 03/07/18 05:06 ESR 16 mm/hr (0-20) 03/05/18 05:07 Sodium 144.8 mmol/L (137-145) 03/08/18 12:25 Potassium 4.7 mmol/L (3.6-5.0) 03/08/18 12:25 Chloride 104 mmol/L (98-107) 03/08/18 12:25 Carbon Dioxide 28 mmol/L (22-30) 03/08/18 12:25 Anion Gap 13 (5-19) 03/08/18 12:25 BUN 65 mg/dL (7-20) H 03/08/18 12:25 Creatinine 1.77 mg/dL (0.52-1.25) H 03/08/18 12:25 Est GFR ( Amer) 46 (>60) L 03/08/18 12:25 Est GFR (Non-Af Amer) 38 (>60) L 03/08/18 12:25 Glucose 176 mg/dL (75-110) H 03/08/18 12:25 POC Glucose 226 mg/dL (70-110) H 03/08/18 12:09 Lactic Acid 1.4 mmol/L (0.7-2.1) 03/04/18 05:05 Calcium 10.2 mg/dL (8.4-10.2) 03/08/18 12:25 Total Bilirubin 0.4 mg/dL (0.2-1.3) 03/03/18 22:55 Direct Bilirubin 0.3 mg/dL (0.0-0.4) 03/03/18 22:55 Neonat Total Bilirubin Not Reportable 03/03/18 22:55 Neonat Direct Bilirubin Not Reportable 03/03/18 22:55 Neonat Indirect Bili Not Reportable 03/03/18 22:55 AST 22 U/L (17-59) 03/03/18 22:55 ALT 31 U/L (21-72) 03/03/18 22:55 Alkaline Phosphatase 53 U/L (38-126) 03/03/18 22:55 Creatine Kinase 99 U/L (55-170) 03/04/18 17:00 CK-MB (CK-2) 1.03 ng/mL (<4.55) 03/04/18 17:00 Troponin I 0.018 ng/mL 03/04/18 17:00 Total Protein 6.9 g/dL (6.3-8.2) 03/03/18 22:55 Albumin 4.2 g/dL (3.5-5.0) 03/03/18 22:55 Triglycerides 292 mg/dL (<150) H 03/05/18 05:07 Cholesterol 214.77 mg/dL (0-200) H 03/05/18 05:07 LDL Cholesterol Direct 111 mg/dL (<100) H 03/05/18 05:07 VLDL Cholesterol 58.4 mg/dL (10-31) H 03/05/18 05:07 HDL Cholesterol 33 mg/dL (>40) L 03/05/18 05:07 Impressions: Chest X-Ray 03/03/18 22:43 IMPRESSION: 1. No acute pulmonary process identified. Cardiac Imaging Nuclear Medicine 03/07/18 00:00 IMPRESSION: Right ventricular ejection fraction estimated at 39% Left ventricular ejection fraction estimated at 52%. There is a dilated left ventricle with elevated end systolic and end-diastolic volumes as above. Qualifiers - * PATIENT BEING DISCHARGED WITH ANY OF THE FOLLOWING DIAGNOSIS: No Plan Discharge Plan: Patient is to follow-up with primary care provider as needed. The patient is to follow-up with the advanced heart team on March 30, 2018 at 3pm. Patient will follow with Dr. Linder within 1-2 weeks for hospital follow-up. Time Spent: Greater than 30 Minutes
[2018-03-09] MEDS ORDERED: MEDROL DOSEPAK (DAY 4) PO SCH ×3 (08:00)
[2018-03-10] MEDS ORDERED: MEDROL DOSEPAK (DAY 5) PO SCH (08:00)
[2018-03-11] MEDS ORDERED: MEDROL DOSEPAK (DAY 6) PO SCH (08:00)
== END 2018-03-08 16:14 | disposition home or self-care (01) | DRG 312 ==
LOC: ER 22:31 → EH 03-04 03:52 → 3N 03-04 13:14
PROVIDERS: ADMIT Internal Medicine; ATTEND Internal Medicine
DX: I95.2 Hypotension due to drugs (principal); N17.9 Acute kidney failure, unspecified; I42.9 Cardiomyopathy, unspecified; I13.0 Hypertensive heart and chronic kidney disease with heart failure and stage 1 through stage 4 chronic kidney disease, or unspecified chronic kidney disease; I50.42 Chronic combined systolic (congestive) and diastolic (congestive) heart failure; N18.4 Chronic kidney disease, stage 4 (severe); I48.0 Paroxysmal atrial fibrillation; D63.1 Anemia in chronic kidney disease; G47.33 Obstructive sleep apnea (adult) (pediatric); E87.5 Hyperkalemia; E11.22 Type 2 diabetes mellitus with diabetic chronic kidney disease; T46.4X5A Adverse effect of angiotensin-converting-enzyme inhibitors, initial encounter; G89.4 Chronic pain syndrome; I27.20 Pulmonary hypertension, unspecified; Z79.02 Long term (current) use of antithrombotics/antiplatelets; I25.10 Atherosclerotic heart disease of native coronary artery without angina pectoris; I25.2 Old myocardial infarction; K21.9 Gastro-esophageal reflux disease without esophagitis; M10.9 Gout, unspecified; Z83.3 Family history of diabetes mellitus; Z82.49 Family history of ischemic heart disease and other diseases of the circulatory system; M54.31 Sciatica, right side; M54.16 Radiculopathy, lumbar region; Z79.899 Other long term (current) drug therapy
CPT/HCPCS: 36415; 71046; 78496; 80048; 80053; 80061; 82550; 82553; 82962; 83605; 84484; 85025; 85652; 93005; 93010; 93306; 96360; 99285; A9538; G8978-GP; G8979-GP; J1815; J3490; J7030; J7509; Q9969

== ENCOUNTER → 2018-06-17 | Outpatient (CLI) | payer MEDICARE, OTHER ==
[2018-06-17 09:49] LABS: ABSOLUTE BASOPHILS # (AUTO) 0.1 10^3/uL (0.0-0.2); ABSOLUTE EOSINOPHILS # (AUTO) 0.1 10^3/uL (0.0-0.6); ABSOLUTE LYMPHOCYTES (AUTO) 1.7 10^3/uL (0.5-4.7); ABSOLUTE MONOCYTES (AUTO) 0.7 10^3/uL (0.1-1.4); ABSOLUTE NEUT (AUTO) 3.3 10^3/uL (1.7-8.2); BASOPHILS % (AUTO) 1.1 % (0-2); EOSINOPHILS % (AUTO) 2.1 % (0-6); HEMOGLOBIN 11.4 g/dL (13.5-17.0); MEAN CORPUSCULAR HEMOGLOBIN 24.3 pg (27.0-33.4); MEAN CORPUSCULAR HGB CONC 32.5 g/dL (32.0-36.0); MEAN CORPUSCULAR VOLUME 75 fl (80-97); MONOCYTES % (AUTO) 11.7 % (3-13); PLATELET COUNT 126 10^3/uL (150-450); RED BLOOD COUNT 4.67 10^6/uL (4.35-5.55); RED CELL DISTRIBUTION WIDTH 13.8 % (11.5-14.0); SEGMENTED NEUTROPHILS % (AUTO) 56.1 % (42-78); TOTAL CELLS COUNTED % (AUTO) 100 %; WHITE BLOOD COUNT 5.9 10^3/uL (4.0-10.5)
[2018-06-17 10:11] LABS: ANION GAP 7 (5-19); BLOOD UREA NITROGEN 39 mg/dL (7-20); CALCIUM 9.5 mg/dL (8.4-10.2); CARBON DIOXIDE 28 mmol/L (22-30); CHLORIDE 106 mmol/L (98-107); GLUCOSE 100 mg/dL (75-110); SODIUM 141.1 mmol/L (137-145)
== END ==
LOC: OD 09:09
PROVIDERS: ATTEND Internal Medicine Nephrology
DX: N18.3 Chronic kidney disease, stage 3 (moderate) (principal); D64.9 Anemia, unspecified; N25.81 Secondary hyperparathyroidism of renal origin
CPT/HCPCS: 36415; 80048; 83970; 85025

== ENCOUNTER → 2018-07-15 | Outpatient (CLI) | payer MEDICARE, OTHER ==
[2018-07-15 08:47] LABS: HEMOGLOBIN 11.3 g/dL (13.5-17.0); MEAN CORPUSCULAR HEMOGLOBIN 24.9 pg (27.0-33.4); MEAN CORPUSCULAR HGB CONC 33.2 g/dL (32.0-36.0); MEAN CORPUSCULAR VOLUME 75 fl (80-97); PLATELET COUNT 139 10^3/uL (150-450); RED BLOOD COUNT 4.52 10^6/uL (4.35-5.55); RED CELL DISTRIBUTION WIDTH 14.8 % (11.5-14.0); WHITE BLOOD COUNT 6.4 10^3/uL (4.0-10.5)
[2018-07-15 09:00] LABS: ALANINE AMINOTRANSFERASE 31 U/L (21-72); ALBUMIN 3.8 g/dL (3.5-5.0); ALKALINE PHOSPHATASE 91 U/L (38-126); ANION GAP 12 (5-19); ASPARTATE AMINO TRANSFERASE 31 U/L (17-59); BILIRUBIN,DIRECT 0.1 mg/dL (0.0-0.4); BILIRUBIN,TOTAL 0.4 mg/dL (0.2-1.3); BLOOD UREA NITROGEN 30 mg/dL (7-20); CALCIUM 9.5 mg/dL (8.4-10.2); CARBON DIOXIDE 28 mmol/L (22-30); CHLORIDE 104 mmol/L (98-107); CHOLESTEROL 245.39 mg/dL (0-200); GLUCOSE 78 mg/dL (75-110); POTASSIUM 4.4 mmol/L (3.6-5.0); SODIUM 143.7 mmol/L (137-145); TOTAL PROTEIN 6.6 g/dL (6.3-8.2); TRIGLYCERIDES 525 mg/dL (<150)
[2018-07-15 09:11] LABS: DIRECT LDL 105 mg/dL (<100)
[2018-07-16 13:38] LABS: CREATININE URINE 151.5 mg/dL (Not Estab.); MICROALBUMIN URINE 13.6 ug/mL (Not Estab.)
== END ==
LOC: OD 07:53
PROVIDERS: ATTEND Family Medicine
DX: I50.9 Heart failure, unspecified (principal); E11.9 Type 2 diabetes mellitus without complications
CPT/HCPCS: 36415; 80053; 80061; 82043; 82570; 83880; 85027

== ENCOUNTER → 2018-07-19 | Outpatient (CLI) | payer MEDICARE, OTHER ==
[2018-07-19 11:23] LABS: ABSOLUTE BASOPHILS # (AUTO) 0.1 10^3/uL (0.0-0.2); ABSOLUTE EOSINOPHILS # (AUTO) 0.3 10^3/uL (0.0-0.6); ABSOLUTE LYMPHOCYTES (AUTO) 1.4 10^3/uL (0.5-4.7); ABSOLUTE MONOCYTES (AUTO) 0.7 10^3/uL (0.1-1.4); ABSOLUTE NEUT (AUTO) 3.6 10^3/uL (1.7-8.2); BASOPHILS % (AUTO) 1.1 % (0-2); EOSINOPHILS % (AUTO) 4.5 % (0-6); HEMATOCRIT 37.9 % (37.9-51.0); LYMPHOCYTES % (AUTO) 23.1 % (13-45); MEAN CORPUSCULAR HEMOGLOBIN 23.9 pg (27.0-33.4); MEAN CORPUSCULAR HGB CONC 31.6 g/dL (32.0-36.0); MEAN CORPUSCULAR VOLUME 76 fl (80-97); MONOCYTES % (AUTO) 11.5 % (3-13); PLATELET COUNT 145 10^3/uL (150-450); RED CELL DISTRIBUTION WIDTH 15.1 % (11.5-14.0); SEGMENTED NEUTROPHILS % (AUTO) 59.8 % (42-78); TOTAL CELLS COUNTED % (AUTO) 100 %; WHITE BLOOD COUNT 6.1 10^3/uL (4.0-10.5)
[2018-07-19 11:59] LABS: ALANINE AMINOTRANSFERASE 28 U/L (21-72); ALBUMIN 4.3 g/dL (3.5-5.0); ALKALINE PHOSPHATASE 98 U/L (38-126); ANION GAP 10 (5-19); ASPARTATE AMINO TRANSFERASE 33 U/L (17-59); BILIRUBIN,DIRECT 0.3 mg/dL (0.0-0.4); BILIRUBIN,TOTAL 0.5 mg/dL (0.2-1.3); BLOOD UREA NITROGEN 36 mg/dL (7-20); CALCIUM 9.9 mg/dL (8.4-10.2); CARBON DIOXIDE 35 mmol/L (22-30); CHLORIDE 99 mmol/L (98-107); GLUCOSE 106 mg/dL (75-110); POTASSIUM 4.4 mmol/L (3.6-5.0); TOTAL PROTEIN 7.5 g/dL (6.3-8.2)
== END ==
LOC: OD 10:30
PROVIDERS: ATTEND Nurse Practitioner Family
DX: I50.9 Heart failure, unspecified (principal)
CPT/HCPCS: 36415; 80053; 83880; 85025

== ENCOUNTER → 2018-10-21 | Outpatient (CLI) | payer MEDICARE, OTHER ==
[2018-10-21 07:51] LABS: ABSOLUTE BASOPHILS # (AUTO) 0.1 10^3/uL (0.0-0.2); ABSOLUTE EOSINOPHILS # (AUTO) 0.1 10^3/uL (0.0-0.6); ABSOLUTE LYMPHOCYTES (AUTO) 1.5 10^3/uL (0.5-4.7); ABSOLUTE MONOCYTES (AUTO) 0.6 10^3/uL (0.1-1.4); ABSOLUTE NEUT (AUTO) 3.2 10^3/uL (1.7-8.2); BASOPHILS % (AUTO) 1.1 % (0-2); EOSINOPHILS % (AUTO) 1.3 % (0-6); HEMOGLOBIN 11.4 g/dL (13.5-17.0); LYMPHOCYTES % (AUTO) 27.3 % (13-45); MEAN CORPUSCULAR HEMOGLOBIN 23.6 pg (27.0-33.4); MEAN CORPUSCULAR HGB CONC 31.6 g/dL (32.0-36.0); MEAN CORPUSCULAR VOLUME 75 fl (80-97); MONOCYTES % (AUTO) 10.3 % (3-13); PLATELET COUNT 124 10^3/uL (150-450); RED BLOOD COUNT 4.81 10^6/uL (4.35-5.55); RED CELL DISTRIBUTION WIDTH 14.5 % (11.5-14.0); TOTAL CELLS COUNTED % (AUTO) 100 %; WHITE BLOOD COUNT 5.4 10^3/uL (4.0-10.5)
[2018-10-21 08:09] LABS: ALBUMIN 4.4 g/dL (3.5-5.0); ANION GAP 8 (5-19); BLOOD UREA NITROGEN 30 mg/dL (7-20); CARBON DIOXIDE 31 mmol/L (22-30); CHLORIDE 104 mmol/L (98-107); GLUCOSE 220 mg/dL (75-110); PHOSPHORUS 3.5 mg/dL (2.5-4.5); POTASSIUM 4.7 mmol/L (3.6-5.0); SODIUM 143.3 mmol/L (137-145)
[2018-10-21 08:10] LABS: APPEARANCE,URINE CLEAR; BILIRUBIN,URINE NEGATIVE (NEGATIVE); COLOR,URINE STRAW; GLUCOSE, URINE NEGATIVE (NEGATIVE); KETONES,URINE NEGATIVE (NEGATIVE); LEUKOCYTE ESTERASE,URINE NEGATIVE (NEGATIVE); NITRITE,URINE NEGATIVE (NEGATIVE); PROTEIN,URINE NEGATIVE (NEGATIVE); URINE SPECIFIC GRAVITY 1.009; UROBILINOGEN,URINE NEGATIVE mg/dL (<2.0)
[2018-10-22 10:39] LABS: CREATININE URINE 41.6 mg/dL (Not Estab.); MICROALBUMIN URINE 22.6 ug/mL (Not Estab.)
== END ==
LOC: OD 07:10
PROVIDERS: ATTEND Internal Medicine Nephrology
DX: E11.22 Type 2 diabetes mellitus with diabetic chronic kidney disease (principal); N18.3 Chronic kidney disease, stage 3 (moderate); D64.9 Anemia, unspecified; N25.81 Secondary hyperparathyroidism of renal origin
CPT/HCPCS: 36415; 80048; 81001; 82040; 82043; 82306; 82570; 83970; 84100; 85025

== ENCOUNTER 2018-12-24 10:13 | Emergency (ER) | payer MEDICARE, OTHER ==
--- NOTE | 2018-12-24 10:32 | ER Document Report ---
ED Medical Screen (RME) - General Chief Complaint: Elbow Injury Stated Complaint: ELBOW PAIN Time Seen by Provider: 12/24/18 10:26 Primary Care Provider: NIRALI SERRANO MD [Primary Care Provider] - Follow up as needed Mode of Arrival: Ambulatory Information source: Patient Notes: 68-year-old male presented to ED for complaint of right elbow pain. He states 2 weeks ago he fell and he was doing okay and then the pain started tingling swelling and increasing in pain over the last 2 weeks. States Thursday the pain got to the point that he is having trouble bending his elbow. He states he went over to Dr. Wall's office but they were too busy to see him today and sent him over here to the emergency room. He supposed to bring the paperwork back to the office on what was done in the emergency room. Patient does have a swollen warm right elbow. X-ray and basic was ordered. I have greeted and performed a rapid initial assessment of this patient. A c omprehensive ED assessment and evaluation of the patient, analysis of test results and completion of medical decision making process will be conducted by an additional ED providers. TRAVEL OUTSIDE OF THE [place] IN LAST 30 DAYS: No - Related Data Allergies/Adverse Reactions: promethazine [From Phenergan] Adverse Reaction (Intermediate, Verified 12/24/18 10:15) Dystonia Past Medical History - Social History Frequency of alcohol use: None Drug Abuse: None - Past Medical History Cardiac Medical History: Reports: Hx Atrial Fibrillation - Paroxysmal, Hx Congestive Heart Failure - Systolic; ejection fraction 2017 of approximately 20%., Hx Coronary Artery Disease, Hx Heart Attack - [place] December 2016, Hx Hypercholesterolemia, Hx Hypertension Denies: Hx DVT, Hx Pulmonary Embolism Pulmonary Medical History: Reports: Hx Bronchitis, Hx COPD - Nightly and as needed 2 L oxygen per nasal cannula, Hx Sleep Apnea - Nasal CPAP; pressure 10 Denies: Hx Asthma Neurological Medical History: Denies: Hx Seizures Endocrine Medical History: Reports: Hx Diabetes Mellitus Type 2. Denies: Hx Diabetes Mellitus Type 1, Hx Hyperthyroidism, Hx Hypothyroidism Renal/ Medical History: Reports: Hx Renal Insufficiency. Denies: Hx Peritoneal Dialysis GI Medical History: Reports: Hx Gastroesophageal Reflux Disease, Hx Colonoscopy, Hx Endoscopy. Denies: Hx Cirrhosis Musculoskeltal Medical History: Reports Hx Arthritis, Reports Hx Gout - Primarily affecting left ankle and foot, Reports Hx Musculoskeletal Deformity - Back pain for 4-5 years Psychiatric Medical History: Denies: Hx Depression Infectious Medical History: Denies: Hx C-Diff, Hx MRSA Past Surgical History: Reports: Hx Cardiac Surgery - DEFIB, Hx Orthopedic Surgery - right rotator cuff. Denies: Hx Pacemaker - Immunizations Hx Diphtheria, Pertussis, Tetanus Vaccination: Yes Physical Exam - Vital signs Vitals: Temp Pulse Resp BP Pulse Ox 97.8 F 87 16 101/52 L 98 12/24/18 10:20 12/24/18 10:20 12/24/18 10:20 12/24/18 10:20 12/24/18 10:20 Course - Vital Signs Vital signs: Temp Pulse Resp BP Pulse Ox 97.8 F 82 15 121/74 97 12/24/18 10:20 12/24/18 13:07 12/24/18 13:07 12/24/18 13:07 12/24/18 13:07 Doctor's Discharge - Discharge Clinical Impression: Right elbow pain, Effusion, right elbow Condition: Stable Disposition: HOME, SELF-CARE Instructions: Elbow Effusion ([facility]) Additional Instructions: Rest and ice the elbow. Wearr sling as needed for comfort, but be sure to practice range of motion of the shoulder as discussed. Take prednisone as directed. As discussed, please watch her diet closely, as this will increase y our blood sugar temporarily. Stay well-hydrated. Follow-up with orthopedics next week. Return to the emergency department with worsening or new concerning symptoms. Prescriptions: Oxycodone HCl/Acetaminophen [Percocet 5-325 mg Tablet] 1 tab PO Q8H PRN #10 tablet PRN Reason: Prednisone [Deltasone 20 mg Tablet] 40 mg PO DAILY #6 tablet Referrals: NIRALI SERRANO MD [Primary Care Provider] - Follow up as needed
--- NOTE | 2018-12-24 11:13 | RADIOLOGY REPORT (SQ) ---
EXAM DESCRIPTION: ELBOW RIGHT OVER 2 VIEWS COMPLETED DATE/TIME: 12/24/2018 10:49 am REASON FOR STUDY: pain and fall hx of gout COMPARISON: None. NUMBER OF VIEWS: Four views. TECHNIQUE: AP, lateral, and both oblique radiographic images acquired of the right elbow. LIMITATIONS: None. FINDINGS: MINERALIZATION: Normal. BONES: No acute fracture or dislocation. There is mild irregularity of the radial head but a clear-c ut fracture not visualized. There are chronic changes with spurring. No worrisome bone lesions. JOINT: Small joint effusion. SOFT TISSUES: No soft tissue swelling. No foreign body. OTHER: No other significant finding. IMPRESSION: CHRONIC CHANGES. SMALL JOINT EFFUSION. THERE IS MILD IRREGULARITY OF THE RADIAL HEAD B UT NO CLEAR-CUT FRACTURE VISUALIZED. THIS MAY BE DUE TO CHRONIC DEGENERATIVE CHANGES. IF THERE IS S IAN CLINICAL CONCERN OF AN OCCULT FRACTURE, THEN CT OF THE ELBOW MAY BE CONSIDERED. TECHNICAL DOCUMENTATION: JOB ID: [id number] [employer]- All Rights Reserved Reading location - IP/workstation name: [email or web address]
[2018-12-24] MEDS ORDERED: OXYCODONE-ACETAMINOPHEN 5-325 MG TABLET PO ONE (12:29)
--- NOTE | 2018-12-24 13:03 | ER Document Report ---
ED General - General Chief Complaint: Elbow Injury Stated Complaint: ELBOW PAIN Time Seen by Provider: 12/24/18 10:26 Primary Care Provider: NIRALI SERRANO MD [Primary Care Provider] - Follow up as needed Mode of Arrival: Ambulatory TRAVEL OUTSIDE OF THE [place] IN LAST 30 DAYS: No - HPI Notes: Patient is a 68-year-old male who comes to the emergency department for evaluation of right elbow pain. He does have a history of what sounds like olecranon bursitis. He has had to have it drained multiple times. He states he has had "cortisone injections" into his joint which helped him significantly. He states he has had increased pain over the last several weeks. He states about a week ago he was walking his son's dog, fell down onto both hands and both knees. The ulnar aspect of his right elbow struck on the ground. He states since then he has had intermittent numbness in the elbow area as well as in his fingertips. He states that he does not have any of that right now. He comes in after being sent here from the orthopedics clinic. They stated they could not fit him in today, so advised him to come here. He denies any fevers or chills. He states he had one episode of emesis yesterday, but attributed that to "drinking sour milk." He stated he vomited one time at 11 AM, but ate and drank normally for the any 4 hours following. He denies any nausea or vomiting at this time. He asks specifically for an injection into the joint. He is currently on Eliquis, taking it as prescribed. - Related Data Allergies/Adverse Reactions: promethazine [From Phenergan] Adverse Reaction (Intermediate, Verified 12/24/18 10:15) Dystonia Past Medical History - General Information source: Patient - Social History Smoking Status: Never Smoker Frequency of alcohol use: None Drug Abuse: None Family History: DM, Hypertension Patient has suicidal ideation: No Patient has homicidal ideation: No - Past Medical History Cardiac Medical History: Reports: Hx Atrial Fibrillation - Paroxysmal, Hx Congestive Heart Failure - Systolic; ejection fraction 2016 of approximately 20%., Hx Coronary Artery Disease, Hx Heart Attack - [place] December 2016, Hx Hypercholesterolemia, Hx Hypertension Denies: Hx DVT, Hx Pulmonary Embolism Pulmonary Medical History: Reports: Hx Bronchitis, Hx COPD - Nightly and as needed 2 L oxygen per nasal cannula, Hx Sleep Apnea - Nasal CPAP; pressure 10 Denies: Hx Asthma Neurological Medical History: Denies: Hx Seizures Endocrine Medical History: Reports: Hx Diabetes Mellitus Type 2. Denies: Hx Diabetes Mellitus Type 1, Hx Hyperthyroidism, Hx Hypothyroidism Renal/ Medical History: Reports: Hx Renal Insufficiency. Denies: Hx Peritoneal Dialysis GI Medical History: Reports: Hx Gastroesophageal Reflux Disease, Hx Colonoscopy, Hx Endoscopy. Denies: Hx Cirrhosis Musculoskeletal Medical History: Reports Hx Arthritis, Reports Hx Gout - Primarily affecting left ankle and foot, Reports Hx Musculoskeletal Deformity - Back pain for 4-5 years Psychiatric Medical History: Denies: Hx Depression Infectious Medical History: Denies: Hx C-Diff, Hx MRSA Past Surgical History: Reports: Hx Cardiac Surgery - DEFIB, Hx Orthopedic Surgery - right rotator cuff. Denies: Hx Pacemaker - Immunizations Hx Diphtheria, Pertussis, Tetanus Vaccination: Yes Hx Pneumococcal Vaccination: 11/05/13 Review of Systems - Review of Systems Constitutional: No symptoms reported EENT: No symptoms reported Cardiovascular: No symptoms reported Respiratory: No symptoms reported Gastrointestinal: No symptoms reported Genitourinary: No symptoms reported Musculoskeletal: See HPI Skin: No symptoms reported Neurological/Psychological: No symptoms reported Physical Exam - Vital signs Vitals: Temp Pulse Resp BP Pulse Ox 97.8 F 87 16 101/52 L 98 12/24/18 10:20 12/24/18 10:20 12/24/18 10:20 12/24/18 10:20 12/24/18 10:20 - Notes Notes: Vital signs reviewed, please see chart. Head is neuropsych atraumatic. Pupils are equal and round, reactive to light. Oral mucosa is moist. Heart is irregularly irregular, lungs are clear to auscultation bilaterally. Examination of the right upper extremity yields a mild amount of edema over the right elbow. He has very mild tenderness to palpation from 2 cm proximal to the antecubital region to 4 cm distal. He does not appear to have any focal tenderness over the olecranon, over the radial head, or over any bony prominence of the elbow. Passive flexion and extension do cause significant pain. Neurovascularly intact distally. Course - Re-evaluation Re-evalutation: 12/24/18 13:01 Patient presents to the emergency department for evaluation. He had initial orders as placed through triage. He does not have any signs of infection at this time. My strong suspicion is that he has a small effusion that is likely blood. He is not focally tender over the radial head. I do believe that his x- ray reveals chronic degenerative changes and not an acute fracture. I do not feel comfortable with any intra-articular injection that involves this patient. He is diabetic. He has an effusion which is likely blood, and he is already on a blood thinner. The patient was treated here with Percocet. I did place him in a sling in a position of comfort. He was neurovascularly intact following. We will send him home with a very short course of low-dose steroids. He is a diabetic. I advised the patient that this will cause an increase in his blood sugar, and he needs to be extremely cautious with his diet. He voiced un derstanding to this. I did discuss this patient with Dr. Smith. I explained to him that I did not have a strong indication that he in fact had an acute radial head fracture. Again I believe this is all degenerative change. We did discuss potential CT, he stated he would see him in the office on Thursday. We will have the patient follow-up, return to the ED if worsening or new concerning symptoms. - Vital Signs Vital signs: Temp Pulse Resp BP Pulse Ox 97.8 F 87 16 101/52 L 98 12/24/18 10:20 12/24/18 10:20 12/24/18 10:20 12/24/18 10:20 12/24/18 10:20 Discharge - Discharge Clinical Impression: Right elbow pain, Effusion, right elbow Condition: Stable Disposition: HOME, SELF-CARE Instructions: Elbow Effusion ([facility]) Additional Instructions: Rest and ice the elbow. Wearr sling as needed for comfort, but be sure to practice range of motion of the shoulder as discussed. Take prednisone as directed. As discussed, please watch her diet closely, as this will increase your blood sugar temporarily. Stay well-hydrated. Follow-up with orthopedics next week. Return to the emergency department with worsening or new concerning symptoms. Referrals: NIRALI SERRANO MD [Primary Care Provider] - Follow up as needed
[2018-12-24 13:11] VITALS: BP 121/74
== END 2018-12-24 13:16 | disposition home or self-care (01) ==
LOC: ER 10:13
DX: M25.521 Pain in right elbow (principal); M25.421 Effusion, right elbow; E11.9 Type 2 diabetes mellitus without complications; I25.10 Atherosclerotic heart disease of native coronary artery without angina pectoris; I10 Essential (primary) hypertension; J44.9 Chronic obstructive pulmonary disease, unspecified; I48.0 Paroxysmal atrial fibrillation; Z79.01 Long term (current) use of anticoagulants; Z95.810 Presence of automatic (implantable) cardiac defibrillator
CPT/HCPCS: 99283; 73080; A9270

== ENCOUNTER → 2019-01-10 | Outpatient (CLI) | payer MEDICARE, OTHER ==
[2019-01-10 09:35] LABS: ALANINE AMINOTRANSFERASE 29 U/L (21-72); ALBUMIN 3.9 g/dL (3.5-5.0); ALKALINE PHOSPHATASE 84 U/L (38-126); ASPARTATE AMINO TRANSFERASE 23 U/L (17-59); BILIRUBIN,DIRECT 0.3 mg/dL (0.0-0.4); BILIRUBIN,TOTAL 0.5 mg/dL (0.2-1.3); CHOLESTEROL 175.44 mg/dL (0-200); TOTAL PROTEIN 6.7 g/dL (6.3-8.2); TRIGLYCERIDES 124 mg/dL (<150)
[2019-01-10 09:46] LABS: DIRECT LDL 93 mg/dL (<100)
== END ==
LOC: OD 08:05
PROVIDERS: ATTEND Specialist
DX: I47.1 Supraventricular tachycardia (principal); I42.0 Dilated cardiomyopathy; Z79.899 Other long term (current) drug therapy; I10 Essential (primary) hypertension; E11.9 Type 2 diabetes mellitus without complications; E78.49 Other hyperlipidemia; I34.0 Nonrheumatic mitral (valve) insufficiency; I47.2 Ventricular tachycardia; I48.0 Paroxysmal atrial fibrillation; E78.5 Hyperlipidemia, unspecified
CPT/HCPCS: 36415; 80061; 80076; 83036

== ENCOUNTER 2019-02-13 16:35 | Emergency (ER) | payer MEDICARE, OTHER ==
--- NOTE | 2019-02-13 17:42 | ER Document Report ---
ED Medical Screen (RME) - General Chief Complaint: Leg Swelling Stated Complaint: RIGHT HAND NUMBNESS Time Seen by Provider: 02/13/19 17:33 Primary Care Provider: DIPAK BHAKTA MD [Primary Care Provider] - Follow up as needed TRAVEL OUTSIDE OF THE [place] IN LAST 30 DAYS: No - HPI Notes: 02/13/19 17:39 Patient is a 68-year-old male with extensive medical history including but not limited to A. fib (on Eliquis), congestive heart failure, coronary artery disease/[place], hypertension, diabetes, COPD (occasional oxygen use) who presents complaining of continued swelling to his bilateral lower extremities, dyspnea on exertion, and numbness tingling into his right hand over the past couple weeks, but the numbness/tingling has been ongoing for longer than that. Patient has be en evaluated by his health care aide as well as a family doctor and has reported all of these issues including the numbness/tingling to them. They have tried increasing his Lasix which has not significant improved his symptoms. He is eating and drinking without difficulty. He is urinating normally and having normal bowel movements. Denies NATHAN, fever, neck pain, URI, CP, Abd pain, n/v/d, dysuria, back pain, or rash. I have treated and performed a rapid initial assessment of this patient. A comprehensive ED assessment and evaluation of the patient, analysis of test results and completion of medical decision making process will be conducted by additional ED providers. PHYSICAL EXAMINATION: GENERAL: Well-appearing, well-nourished and in no acute distress. A&Ox4. Answers questions appropriately. LUNGS: mildly diminished at base b/l. No wheezes rales or rhonchi. No retractions. Speaking in complete sentences w/o difficulty. HEART: Regular rate and rhythm Extremities: 1+ pitting edema RLE, 2+ pitting edeme LLE (normal for L>R per pt). NEUROLOGICAL: Normal speech, normal gait. Cranial nerves grossly intact. PSYCH: Normal mood, normal affect. - Related Data Allergies/Adverse Reactions: promethazine [From Phenergan] Adverse Reaction (Intermediate, Verified 02/13/19 16:50) Dystonia Past Medical History - Past Medical History Cardiac Medical History: Reports: Hx Atrial Fibrillation - Paroxysmal, Hx Congestive Heart Failure - Systolic; ejection fraction 2017 of approximately 20%., Hx Coronary Artery Disease, Hx Heart Attack - [place] December 2016, Hx Hypercholesterolemia, Hx Hypertension Denies: Hx DVT, Hx Pulmonary Embolism Pulmonary Medical History: Reports: Hx Bronchitis, Hx COPD - Nightly and as needed 2 L oxygen per nasal cannula, Hx Sleep Apnea - Nasal CPAP; pressure 10 Denies: Hx Asthma Neurological Medical History: Denies: Hx Seizures Endocrine Medical History: Reports: Hx Diabetes Mellitus Type 2. Denies: Hx Diabetes Mellitus Type 1, Hx Hyperthyroidism, Hx Hypothyroidism Renal/ Medical History: Reports: Hx Renal Insufficiency. Denies: Hx Peritoneal Dialysis GI Medical History: Reports: Hx Gastroesophageal Reflux Disease, Hx Colonoscopy, Hx Endoscopy. Denies: Hx Cirrhosis Musculoskeltal Medical History: Reports Hx Arthritis, Reports Hx Gout - Primarily affecting left ankle and foot, Reports Hx Musculoskeletal Deformity - Back pain for 4-5 years Psychiatric Medical History: Denies: Hx Depression Infectious Medical History: Denies: Hx C-Diff, Hx MRSA Past Surgical History: Reports: Hx Cardiac Surgery - DEFIB, Hx Orthopedic Surgery - right rotator cuff. Denies: Hx Pacemaker - Immunizations Hx Diphtheria, Pertussis, Tetanus Vaccination: Yes Physical Exam - Vital signs Vitals: Temp Pulse Resp BP Pulse Ox 98.1 F 72 20 109/55 L 99 02/13/19 17:00 02/13/19 17:00 02/13/19 17:00 02/13/19 17:00 02/13/19 17:00 Course - Vital Signs Vital signs: Temp Pulse Resp BP Pulse Ox 98.1 F 72 20 109/55 L 99 02/13/19 17:00 02/13/19 17:00 02/13/19 17:00 02/13/19 17:00 02/13/19 17:00 Doctor's Discharge - Discharge Referrals: DIPAK BHAKTA MD [Primary Care Provider] - Follow up as needed
--- NOTE | 2019-02-13 19:08 | RADIOLOGY REPORT (SQ) ---
EXAM DESCRIPTION: CHEST 2 VIEWS COMPLETED DATE/TIME: 02/13/2019 6:58 pm REASON FOR STUDY: EDWARDS, LE swelling COMPARISON: 03/03/2018 EXAM PARAMETERS: NUMBER OF VIEWS: two views TECHNIQUE: Digital Frontal and Lateral radiographic views of the chest acquired. RADIATION DOSE: NA LIMITATIONS: none FINDINGS: LUNGS AND PLEURA: No opacities, masses or pneumothorax. No pleural effusion. MEDIASTINUM AND HILAR STRUCTURES: No masses or contour abnormalities. HEART AND VASCULAR STRUCTURES: Heart normal size. No evidence for failure. BONES: No acute findings. HARDWARE: None in the chest. OTHER: No other significant finding. IMPRESSION: NO ACUTE RADIOGRAPHIC FINDING IN THE CHEST. TECHNICAL DOCUMENTATION: JOB ID: [id number] [employer]- All Rights Reserved Reading location - IP/workstation name: [email or web address]
[2019-02-13 19:53] LABS: APPEARANCE,URINE CLEAR; BILIRUBIN,URINE NEGATIVE (NEGATIVE); COLOR,URINE YELLOW; GLUCOSE, URINE 50 mg/dL (NEGATIVE); KETONES,URINE NEGATIVE (NEGATIVE); LEUKOCYTE ESTERASE,URINE NEGATIVE (NEGATIVE); NITRITE,URINE NEGATIVE (NEGATIVE); PROTEIN,URINE NEGATIVE (NEGATIVE); URINE SPECIFIC GRAVITY 1.011; UROBILINOGEN,URINE NEGATIVE mg/dL (<2.0)
[2019-02-13 21:12] LABS: ABSOLUTE BASOPHILS # (AUTO) 0.1 10^3/uL (0.0-0.2); ABSOLUTE EOSINOPHILS # (AUTO) 0.1 10^3/uL (0.0-0.6); ABSOLUTE LYMPHOCYTES (AUTO) 1.8 10^3/uL (0.5-4.7); ABSOLUTE MONOCYTES (AUTO) 0.7 10^3/uL (0.1-1.4); ABSOLUTE NEUT (AUTO) 3.5 10^3/uL (1.7-8.2); BASOPHILS % (AUTO) 1.2 % (0-2); HEMATOCRIT 34.9 % (37.9-51.0); HEMOGLOBIN 10.8 g/dL (13.5-17.0); LYMPHOCYTES % (AUTO) 28.8 % (13-45); MEAN CORPUSCULAR HEMOGLOBIN 23.5 pg (27.0-33.4); MEAN CORPUSCULAR HGB CONC 30.9 g/dL (32.0-36.0); MEAN CORPUSCULAR VOLUME 76 fl (80-97); MONOCYTES % (AUTO) 11.4 % (3-13); PLATELET COUNT 150 10^3/uL (150-450); RED BLOOD COUNT 4.58 10^6/uL (4.35-5.55); RED CELL DISTRIBUTION WIDTH 16.3 % (11.5-14.0); SEGMENTED NEUTROPHILS % (AUTO) 56.6 % (42-78); TOTAL CELLS COUNTED % (AUTO) 100 %; WHITE BLOOD COUNT 6.1 10^3/uL (4.0-10.5)
[2019-02-13 21:34] LABS: ALANINE AMINOTRANSFERASE 41 U/L (21-72); ALBUMIN 4.1 g/dL (3.5-5.0); ALKALINE PHOSPHATASE 74 U/L (38-126); ANION GAP 8 (5-19); ASPARTATE AMINO TRANSFERASE 22 U/L (17-59); BILIRUBIN,DIRECT 0.2 mg/dL (0.0-0.4); BILIRUBIN,TOTAL 0.4 mg/dL (0.2-1.3); BLOOD UREA NITROGEN 38 mg/dL (7-20); CALCIUM 9.4 mg/dL (8.4-10.2); CARBON DIOXIDE 32 mmol/L (22-30); CHLORIDE 102 mmol/L (98-107); GLUCOSE 122 mg/dL (75-110); POTASSIUM 4.6 mmol/L (3.6-5.0); SODIUM 141.6 mmol/L (137-145); TOTAL PROTEIN 6.8 g/dL (6.3-8.2)
[2019-02-13 22:37] VITALS: BP 129/74
--- NOTE | 2019-02-13 22:42 | EKG REPORT ---
SEVERITY:- ABNORMAL ECG - SINUS RHYTHM LEFT ANTERIOR FASCICULAR BLOCK BORDERLINE R WAVE PROGRESSION, ANTERIOR LEADS BORDERLINE T ABNORMALITIES, LATERAL LEADS : Confirmed by: Alfie López MD 13-Feb-2019 22:41:16
--- NOTE | 2019-02-13 22:44 | ER Document Report ---
ED General - General Chief Complaint: Leg Swelling Stated Complaint: RIGHT HAND NUMBNESS Time Seen by Provider: 02/13/19 17:33 Primary Care Provider: DIPAK BHAKTA MD [ACTIVE STAFF] - Follow up in 3-5 days Notes: Patient is a 68-year-old male with past medical history of CHF, diabetes, hypertension, presents complaining of intermittent right finger numbness. Patient states that his second through fourth digits intermittently become numb or tingly. This is been going on for at least 3 or 4 months and is not new or different today. In triage there was apparent significant focus on bilateral lower extremity edema which the patient states is confusing because he did not feel that this is a major concern is not his reason for visiting today. He adamantly denies any associated chest pain shortness of breath. Does not currently have any symptoms in his right hand. States that the symptoms seem to come and go, are severe when present and absent completely otherwise. Nothing seems to improve or worsen the symptoms themselves. He has seen his primary care doctor regarding this issue without resolution. He denies any associate weakness to the hand. States it is always a same 3 digits. TRAVEL OUTSIDE OF THE [place] IN LAST 30 DAYS: No - Related Data Allergies/Adverse Reactions: promethazine [From Phenergan] Adverse Reaction (Intermediate, Verified 02/13/19 20:26) Dystonia Past Medical History - General Information source: Patient - Social History Smoking Status: Never Smoker Frequency of alcohol use: None Drug Abuse: None Lives with: Spouse/Significant other Family History: DM, Hypertension Patient has suicidal ideation: No Patient has homicidal ideation: No - Past Medical History Cardiac Medical History: Reports: Hx Atrial Fibrillation - Paroxysmal, Hx Congestive Heart Failure - Systolic; ejection fraction 2017 of approximately 20%., Hx Coronary Artery Disease, Hx Heart Attack - [place] December 2016, Hx Hypercholesterolemia, Hx Hypertension Denies: Hx DVT, Hx Pulmonary Embolism Pulmonary Medical History: Reports: Hx Bronchitis, Hx COPD - Nightly and as needed 2 L oxygen per nasal cannula, Hx Sleep Apnea - Nasal CPAP; pressure 10 Denies: Hx Asthma Neurological Medical History: Denies: Hx Seizures Endocrine Medical History: Reports: Hx Diabetes Mellitus Type 2. Denies: Hx Diabetes Mellitus Type 1, Hx Hyperthyroidism, Hx Hypothyroidism Renal/ Medical History: Reports: Hx Renal Insufficiency. Denies: Hx Peritonea l Dialysis GI Medical History: Reports: Hx Gastroesophageal Reflux Disease, Hx Colonoscopy, Hx Endoscopy. Denies: Hx Cirrhosis Musculoskeletal Medical History: Reports Hx Arthritis, Reports Hx Gout - Primarily affecting left ankle and foot, Reports Hx Musculoskeletal Deformity - Back pain for 4-5 years Psychiatric Medical History: Denies: Hx Depression Infectious Medical History: Denies: Hx C-Diff, Hx MRSA Past Surgical History: Reports: Hx Cardiac Surgery - DEFIB, Hx Orthopedic Surgery - right rotator cuff. Denies: Hx Pacemaker - Immunizations Hx Diphtheria, Pertussis, Tetanus Vaccination: Yes Hx Pneumococcal Vaccination: 11/05/13 Review of Systems - Review of Systems Notes: Constitutional: Negative for fever. HENT: Negative for sore throat. Eyes: Negative for visual changes. Cardiovascular: Negative for chest pain. Respiratory: Negative for shortness of breath. Gastrointestinal: Negative for abdominal pain, vomiting or diarrhea. Genitourinary: Negative for dysuria. Musculoskeletal: Negative for back pain. Skin: Negative for rash. Neurological: Negative for headaches, positive for intermittent right finger numbness 10 point ROS negative except as marked above and in HPI. Physical Exam - Vital signs Vitals: Temp Pulse Resp BP Pulse Ox 98.1 F 72 20 109/55 L 99 02/13/19 17:00 02/13/19 17:00 02/13/19 17:00 02/13/19 17:00 02/13/19 17:00 Interpretation: Normal Notes: PHYSICAL EXAMINATION: GENERAL: Well-appearing, well-nourished and in no acute distress. HEAD: Atraumatic, normocephalic. EYES: Pupils equal round and reactive to light, extraocular movements intact, sclera anicteric, conjunctiva are normal. ENT: nares patent, oropharynx clear without exudates. Moist mucous membranes. NECK: Normal range of motion, supple without lymphadenopathy LUNGS: Breath sounds clear to auscultation bilaterally and equal. No wheezes rales or rhonchi. HEART: Regular rate and rhythm without murmurs ABDOMEN: Soft, nontender, normoactive bowel sounds. No guarding, no rebound. No masses appreciated. EXTREMITIES: Normal range of motion, no pitting or edema. No cyanosis. NEUROLOGICAL: Face symmetric. Tongue protrudes midline. Extraocular motions intact. Pupils are 2 mm and equally reactive. Normal speech, normal gait. 5 out of 5 strength in both the distal and proximal upper and lower extremities bilaterally. Sensation is grossly intact throughout. Finger to nose testing normal. Pronator drift normal. RMU motor and sensory distribution is intact bilaterally including against resistance on motor testing. PSYCH: Normal mood, normal affect. SKIN: Warm, Dry, normal turgor, no rashes or lesions noted. Course - Re-evaluation Re-evalutation: 02/13/19 22:42 Patient presents with 3 to 4 months of intermittent numbness and tingling of the second through fourth digits of the right hand. Symptoms come and go. He has no focal neurologic deficit on exam, RMU motor and sensory distribution including against resistance on motor testing is normal. Capillary refill less than 2 seconds in all digits of the right hand, strong 2+ radial and ulnar pulses. Symptoms not reproduced by elevation of the arm above 90 degrees. Denies associated chest pain. The patient had an extensive evaluation ordered in triage due to concerns of bilateral lower extremity edema although when I evaluate the patient he states that this was not the main reason that he was here and he just wanted to figure out why his right hand Going numb. Has been followed by his primary care doctor regarding this issue. Long-standing history of diabetes and I do suspect that the patient may have a component of diabetic peripheral neuropathy. His labs do demonstrate some mild worsening of his chronic kidney disease although it do not have any recent labs in the last 4 months. Have advised the patient of this lab abnormality and the need for recheck. At this point a do not suspect an acute stroke, peripheral nerve occlusion, acute vascular occlusion or any alternative life-threatening etiology as the cause of patient's presentation. At this time will discharge with return precautions and follow-up recommendations. Verbal discharge instructions given a the bedside and opportunity for questions given. Medication warnings reviewed. Patient is in agreement with this plan and has verbalized understanding of return precautions and the need for primary care follow-up in the next 24-72 hours. - Vital Signs Vital signs: Temp Pulse Resp BP Pulse Ox 98.1 F 72 16 129/74 H 100 02/13/19 17:00 02/13/19 17:00 02/13/19 22:01 02/13/19 22:01 02/13/19 22:01 - Laboratory Result Diagrams: 02/13/19 20:55 02/13/19 20:55 Laboratory results interpreted by me: 02/13/19 02/13/1919 18:56 20:55 20:55 Hgb 10.8 L Hct 34.9 L MCV 76 L MCH 23.5 L MCHC 30.9 L RDW 16.3 H Carbon Dioxide 32 H BUN 38 H Creatinine 2.57 H Est GFR ( Amer) 30 L Est GFR (Non-Af Amer) 25 L Glucose 122 H Urine Glucose (UA) 50 H - Diagnostic Test Radiology reviewed: Image reviewed, Reports reviewed Radiology results interpreted by me: 02/13/19 22:44 Chest x-ray: No acute infiltrate or pneumothorax - EKG Interpretation by Me Additional EKG results interpreted by me: 02/13/19 22:44 Sinus rhythm, rate 69, no ST elevations or depressions. QTC is 459. Discharge - Discharge Clinical Impression: Numbness of right hand, Bilateral edema of lower extremity, Diabetic peripheral neuropathy Chronic kidney disease Qualifiers: Chronic kidney disease stage: unspecified stage Qualified Code(s): N18.9 - Chronic kidney disease, unspecified Condition: Stable Disposition: HOME, SELF-CARE Additional Instructions: Your symptoms appear likely related to your diabetes, diabetic peripheral neuropathy. This can cause numbness and tingling as you are experiencing. Your neurologic exam is otherwise unremarkable. Your labs do show chronic kidney disease and your kidney function should be rechecked by your primary care doctor to ensure that they are not worsening. This lab recheck should ideally be done within the next 1 week. Return to the emergency department if you develop worsening symptoms, fever greater than 100.4 F, persistent vomiting, or any other symptoms that are worrisome to you. Referrals: DIPAK BHAKTA MD [ACTIVE STAFF] - Follow up in 3-5 days
== END 2019-02-13 22:52 | disposition home or self-care (01) ==
LOC: ER 16:35
DX: E11.42 Type 2 diabetes mellitus with diabetic polyneuropathy (principal); E11.22 Type 2 diabetes mellitus with diabetic chronic kidney disease; I12.9 Hypertensive chronic kidney disease with stage 1 through stage 4 chronic kidney disease, or unspecified chronic kidney disease; N18.9 Chronic kidney disease, unspecified; R20.0 Anesthesia of skin; R60.0 Localized edema; I25.10 Atherosclerotic heart disease of native coronary artery without angina pectoris; J44.9 Chronic obstructive pulmonary disease, unspecified; Z95.810 Presence of automatic (implantable) cardiac defibrillator; R20.2 Paresthesia of skin
CPT/HCPCS: 36415; 71046; 80053; 81001; 83880; 84484; 85025; 93005; 93010; 99284

== ENCOUNTER → 2019-02-19 | Outpatient (CLI) | payer MEDICARE, OTHER ==
[2019-02-19 09:22] LABS: APPEARANCE,URINE CLEAR; BILIRUBIN,URINE NEGATIVE (NEGATIVE); COLOR,URINE YELLOW; GLUCOSE, URINE NEGATIVE (NEGATIVE); KETONES,URINE NEGATIVE (NEGATIVE); LEUKOCYTE ESTERASE,URINE NEGATIVE (NEGATIVE); NITRITE,URINE NEGATIVE (NEGATIVE); PROTEIN,URINE NEGATIVE (NEGATIVE); URINE SPECIFIC GRAVITY 1.015; UROBILINOGEN,URINE NEGATIVE mg/dL (<2.0)
[2019-02-19 09:26] LABS: ABSOLUTE BASOPHILS # (AUTO) 0.1 10^3/uL (0.0-0.2); ABSOLUTE EOSINOPHILS # (AUTO) 0.1 10^3/uL (0.0-0.6); ABSOLUTE LYMPHOCYTES (AUTO) 1.4 10^3/uL (0.5-4.7); ABSOLUTE MONOCYTES (AUTO) 0.7 10^3/uL (0.1-1.4); ABSOLUTE NEUT (AUTO) 3.2 10^3/uL (1.7-8.2); EOSINOPHILS % (AUTO) 1.9 % (0-6); HEMOGLOBIN 10.3 g/dL (13.5-17.0); LYMPHOCYTES % (AUTO) 25.3 % (13-45); MEAN CORPUSCULAR HEMOGLOBIN 23.6 pg (27.0-33.4); MEAN CORPUSCULAR HGB CONC 31.3 g/dL (32.0-36.0); MEAN CORPUSCULAR VOLUME 76 fl (80-97); MONOCYTES % (AUTO) 12.8 % (3-13); PLATELET COUNT 156 10^3/uL (150-450); RED BLOOD COUNT 4.36 10^6/uL (4.35-5.55); RED CELL DISTRIBUTION WIDTH 15.9 % (11.5-14.0); TOTAL CELLS COUNTED % (AUTO) 100 %; WHITE BLOOD COUNT 5.4 10^3/uL (4.0-10.5)
[2019-02-19 09:27] LABS: INTERNATIONAL RATION (INR) 0.97; PROTHROMBIN TIME 13.4 SEC (11.4-15.4)
[2019-02-19 09:28] LABS: PARTIAL THROMBOPLASTIN TIME 33.3 SEC (23.5-35.8)
[2019-02-19 09:43] LABS: ALANINE AMINOTRANSFERASE 28 U/L (21-72); ALBUMIN 3.8 g/dL (3.5-5.0); ALKALINE PHOSPHATASE 69 U/L (38-126); ANION GAP 7 (5-19); ASPARTATE AMINO TRANSFERASE 21 U/L (17-59); BILIRUBIN,DIRECT 0.2 mg/dL (0.0-0.4); BILIRUBIN,TOTAL 0.4 mg/dL (0.2-1.3); BLOOD UREA NITROGEN 45 mg/dL (7-20); CARBON DIOXIDE 31 mmol/L (22-30); CHLORIDE 103 mmol/L (98-107); CHOLESTEROL 185.97 mg/dL (0-200); GLUCOSE 152 mg/dL (75-110); POTASSIUM 4.9 mmol/L (3.6-5.0); SODIUM 140.7 mmol/L (137-145); TOTAL PROTEIN 6.5 g/dL (6.3-8.2); TRIGLYCERIDES 238 mg/dL (<150)
[2019-02-19 09:54] LABS: DIRECT LDL 89 mg/dL (<100)
[2019-02-19 09:56] LABS: VLDL CHOLESTEROL 47.6 mg/dL (10-31)
== END ==
LOC: OD 08:27
PROVIDERS: ATTEND Specialist
DX: I11.0 Hypertensive heart disease with heart failure (principal); I50.22 Chronic systolic (congestive) heart failure; E11.9 Type 2 diabetes mellitus without complications; I34.0 Nonrheumatic mitral (valve) insufficiency; E78.49 Other hyperlipidemia; I47.1 Supraventricular tachycardia; I42.0 Dilated cardiomyopathy; N19 Unspecified kidney failure; I48.0 Paroxysmal atrial fibrillation; G47.30 Sleep apnea, unspecified; R60.9 Edema, unspecified; Z79.899 Other long term (current) drug therapy
CPT/HCPCS: 36415; 80051; 80061; 80076; 81001; 82565; 82947; 83036; 83735; 84520; 85025; 85610; 85730

== ENCOUNTER 2019-03-08 14:57 | Emergency (ER) | payer MEDICARE, OTHER ==
--- NOTE | 2019-03-08 16:46 | ER Document Report ---
ED Medical Screen (RME) - General Chief Complaint: Foot Injury Stated Complaint: FOOT PAIN Time Seen by Provider: 03/08/19 16:35 Primary Care Provider: NIRALI SERRANO MD [Primary Care Provider] - Follow up as needed Mode of Arrival: Ambulatory Information source: Patient TRAVEL OUTSIDE OF THE [place] IN LAST 30 DAYS: No - HPI Notes: 03/08/19 16:42 Patient is a 68 yr old male that presents to the emergency department for chief complaint of left foot pain that started a couple of days ago. unsure if he sprained his ankles yesterday. hx of gout in right foot, so unsure if this is the issue. Denies any trauma, denies any fevers or chills. no numbness or tingling in the foot. Patient is a type II diabetic. Has not had any fevers or chills. No nausea vomiting or diarrhea, no weakness, no paresthesias ROS: Other than noted above, the 12 point review of systems was reviewed with the patient and were negative, all pertinent findings are included in the HPI. PHYSICAL EXAMINATION: Vital signs reviewed. GENERAL: Well-appearing, well-nourished and in no acute distress. CV: Heart regular rate and rhythm LUNGS: No respiratory distress Musculoskeletal: Normal range of motion. left foot with STS and tenderness on 5th metatarsal bones with palpation and swelling to lateral apsect of foot. Unable to palpate a step-off. No open lesions. squeeze test negative. dtr +2 BLE. Limited APROM. distal pulses + 2 in BUE. full motor and sensory function. No vascular compromise. Ankle exam within normal limits. No noted lacerations, lesions, ulcers or break in the skin. NEUROLOGICAL: Normal speech PSYCH: Normal mood, normal affect. MDM: Patient seen and examined for rapid initial assessment. Vital signs reviewed. A comprehensive ED assessment and evaluation of the patient, analysis of test results and completion of the medical decision making process will be conducted by additional ED providers. *Note is created using voice recognition software and may contain spelling, syntax or grammatical errors. - Related Data Allergies/Adverse Reactions: promethazine [From Phenergan] Adverse Reaction (Intermediate, Verified 02/13/19 20:26) Dystonia Past Medical History - General Information source: Patient - Social History Chew tobacco use (# tins/day): No Frequency of alcohol use: None Drug Abuse: None - Past Medical History Cardiac Medical History: Reports: Hx Atrial Fibrillation - Paroxysmal, Hx Congestive Heart Failure - Systolic; ejection fraction 2017 of approximately 20%., Hx Coronary Artery Disease, Hx Heart Attack - [place] December 2016, Hx Hypercholesterolemia, Hx Hypertension Denies: Hx DVT, Hx Pulmonary Embolism Pulmonary Medical History: Reports: Hx Bronchitis, Hx COPD - Nightly and as needed 2 L oxygen per nasal cannula, Hx Sleep Apnea - Nasal CPAP; pressure 10 Denies: Hx Asthma Neurological Medical History: Denies: Hx Seizures Endocrine Medical History: Reports: Hx Diabetes Mellitus Type 2. Denies: Hx Diabetes Mellitus Type 1, Hx Hyperthyroidism, Hx Hypothyroidism Renal/ Medical History: Reports: Hx Renal Insufficiency. Denies: Hx Peritoneal Dialysis GI Medical History: Reports: Hx Gastroesophageal Reflux Disease, Hx Colonoscopy, Hx Endoscopy. Denies: Hx Cirrhosis Musculoskeltal Medical History: Reports Hx Arthritis, Reports Hx Gout - Primarily affecting left ankle and foot, Reports Hx Musculoskeletal Deformity - Back pain for 4-5 years Psychiatric Medical History: Denies: Hx Depression Infectious Medical History: Denies: Hx C-Diff, Hx MRSA Past Surgical History: Reports: Hx Cardiac Surgery - DEFIB, Hx Orthopedic Surgery - right rotator cuff. Denies: Hx Pacemaker - Immunizations Hx Diphtheria, Pertussis, Tetanus Vaccination: Yes Physical Exam - Vital signs Vitals: Temp Pulse Resp BP Pulse Ox 97.6 F 79 18 145/54 H 94 03/08/19 15:03/08/19 15:03/08/19 15:03/08/19 15:03/08/19 15:09 Course - Vital Signs Vital signs: Temp Pulse Resp BP Pulse Ox 97.6 F 79 18 145/54 H 94 03/08/19 15:03/08/19 15:03/08/19 15:03/08/19 15:03/08/19 15:09 Doctor's Discharge - Discharge Referrals: NIRALI SERRANO MD [Primary Care Provider] - Follow up as needed
[2019-03-08 17:16] LABS: ABSOLUTE EOSINOPHILS # (AUTO) 0.1 10^3/uL (0.0-0.6); ABSOLUTE LYMPHOCYTES (AUTO) 1.5 10^3/uL (0.5-4.7); ABSOLUTE MONOCYTES (AUTO) 0.8 10^3/uL (0.1-1.4); ABSOLUTE NEUT (AUTO) 4.9 10^3/uL (1.7-8.2); BASOPHILS % (AUTO) 0.1 % (0-2); EOSINOPHILS % (AUTO) 1.7 % (0-6); HEMATOCRIT 34.2 % (37.9-51.0); HEMOGLOBIN 10.9 g/dL (13.5-17.0); LYMPHOCYTES % (AUTO) 20.1 % (13-45); MEAN CORPUSCULAR HEMOGLOBIN 23.9 pg (27.0-33.4); MEAN CORPUSCULAR HGB CONC 31.7 g/dL (32.0-36.0); MEAN CORPUSCULAR VOLUME 75 fl (80-97); MONOCYTES % (AUTO) 10.6 % (3-13); PLATELET COUNT 166 10^3/uL (150-450); RED BLOOD COUNT 4.56 10^6/uL (4.35-5.55); RED CELL DISTRIBUTION WIDTH 15.8 % (11.5-14.0); SEGMENTED NEUTROPHILS % (AUTO) 67.5 % (42-78); TOTAL CELLS COUNTED % (AUTO) 100 %; WHITE BLOOD COUNT 7.2 10^3/uL (4.0-10.5)
[2019-03-08 17:36] LABS: ALANINE AMINOTRANSFERASE 24 U/L (21-72); ALBUMIN 4.5 g/dL (3.5-5.0); ALKALINE PHOSPHATASE 80 U/L (38-126); ANION GAP 11 (5-19); ASPARTATE AMINO TRANSFERASE 19 U/L (17-59); BILIRUBIN,DIRECT 0.2 mg/dL (0.0-0.4); BILIRUBIN,TOTAL 0.5 mg/dL (0.2-1.3); BLOOD UREA NITROGEN 41 mg/dL (7-20); C-REACTIVE PROTEIN 7.9 mg/L (<10.0); CALCIUM 10.2 mg/dL (8.4-10.2); CARBON DIOXIDE 30 mmol/L (22-30); CHLORIDE 101 mmol/L (98-107); GLUCOSE 265 mg/dL (75-110); POTASSIUM 3.9 mmol/L (3.6-5.0); SODIUM 141.7 mmol/L (137-145); TOTAL PROTEIN 7.4 g/dL (6.3-8.2); URIC ACID 10.3 mg/dL (3.5-8.5)
--- NOTE | 2019-03-08 17:42 | RADIOLOGY REPORT (SQ) ---
EXAM DESCRIPTION: FOOT LEFT COMPLETE COMPLETED DATE/TIME: 03/08/2019 5:24 pm REASON FOR STUDY: left foot pain COMPARISON: None. EXAM PARAMETERS: NUMBER OF VIEWS: Three views. TECHNIQUE: AP, lateral and oblique radiographic images acquired of the left foot. LIMITATIONS: None. FINDINGS: MINERALIZATION: Normal. BONES: No acute fracture or dislocation. No worrisome bone lesions. JOINTS: No effusion. SOFT TISSUES: No significant soft tissue swelling. No radiopaque foreign body. OTHER: No other significant finding. IMPRESSION: NO FRACTURE.No worrisome bone lesions. TECHNICAL DOCUMENTATION: JOB ID: [id number] [employer]- All Rights Reserved Reading location - IP/workstation name: [email or web address]
--- NOTE | 2019-03-08 20:40 | ER Document Report ---
ED Extremity Problem, Lower - General Chief Complaint: Foot Injury Stated Complaint: FOOT PAIN Time Seen by Provider: 03/08/19 16:35 Primary Care Provider: NIRALI SERRANO MD [ACTIVE STAFF] - Follow up as needed Mode of Arrival: Ambulatory Notes: Patient is a 68-year-old male with a history of stage III kidney disease, congestive heart failure, hypertension, [place], type 2 diabetes, high cholesterol who presents to the emergency department with a chief complaint of left foot pain. Patient states that he has had left lower leg swelling over the past few weeks and did see his supervisor color making within the past week. Patient states they increased his Bumex from a half a milligram to 1 mg daily. Patient states that the swelling has significantly improved but today he woke up and was having a large amount of pain with ambulation. Patient reports that the pain is on the left lateral aspect of the foot and worse with walking. Patient states he did take his colchicine that he is prescribed as needed for gout in his right foot and a Tylenol this morning with minimal relief. Patient sought care in the emergency department for the continued left foot pain. Patient denies fever. Patient denies nausea vomiting or diarrhea. Patient denies chest pain or shortness of breath. Denies specific injury. He does use a cane to ambulate. TRAVEL OUTSIDE OF THE [place] IN LAST 30 DAYS: No - Related Data Allergies/Adverse Reactions: promethazine [From Phenergan] Adverse Reaction (Intermediate, Verified 02/13/19 20:26) Dystonia Past Medical History - General Information source: Patient - Social History Smoking Status: Never Smoker Chew tobacco use (# tins/day): No Frequency of alcohol use: None Drug Abuse: None Lives with: Spouse/Significant other Family History: DM, Hypertension Patient has suicidal ideation: No Patient has homicidal ideation: No - Past Medical History Cardiac Medical History: Reports: Hx Atrial Fibrillation - Paroxysmal, Hx Congestive Heart Failure - Systolic; ejection fraction 2017 of approximately 20%., Hx Coronary Artery Disease, Hx Heart Attack - [place] December 2016, Hx Hyperch olesterolemia, Hx Hypertension Denies: Hx DVT, Hx Pulmonary Embolism Pulmonary Medical History: Reports: Hx Bronchitis, Hx COPD - Nightly and as needed 2 L oxygen per nasal cannula, Hx Sleep Apnea - Nasal CPAP; pressure 10 Denies: Hx Asthma EENT Medical History: Reports: Eyes Neurological Medical History: Denies: Hx Seizures Endocrine Medical History: Reports: Hx Diabetes Mellitus Type 2. Denies: Hx Diabetes Mellitus Type 1, Hx Hyperthyroidism, Hx Hypothyroidism Renal/ Medical History: Reports: Hx Renal Insufficiency. Denies: Hx Peritoneal Dialysis Malignancy Medical History: Reports None GI Medical History: Reports: Hx Gastroesophageal Reflux Disease, Hx Colonoscopy, Hx Endoscopy. Denies: Hx Cirrhosis Musculoskeletal Medical History: Reports Hx Arthritis, Reports Hx Gout - Primarily affecting left ankle and foot, Reports Hx Musculoskeletal Deformity - Back pain for 4-5 years Skin Medical History: Reports None Psychiatric Medical History: Reports: None Denies: Hx Depression Traumatic Medical History: Reports: None Infectious Medical History: Reports: None. Denies: Hx C-Diff, Hx MRSA Past Surgical History: Reports: Hx Cardiac Surgery - DEFIB, Hx Orthopedic Surgery - right rotator cuff. Denies: Hx Pacemaker - Immunizations Hx Diphtheria, Pertussis, Tetanus Vaccination: Yes Hx Pneumococcal Vaccination: 11/05/13 Review of Systems - Review of Systems Constitutional: No symptoms reported EENT: No symptoms reported Cardiovascular: No symptoms reported Respiratory: No symptoms reported Gastrointestinal: No symptoms reported Genitourinary: No symptoms reported Male Genitourinary: No symptoms reported Musculoskeletal: See HPI Skin: See HPI Hematologic/Lymphatic: No symptoms reported Neurological/Psychological: No symptoms reported Physical Exam - Vital signs Vitals: Temp Pulse Resp BP Pulse Ox 97.6 F 79 18 145/54 H 94 03/08/19 15:09 03/08/19 15:09 03/08/19 15:09 03/08/19 15:09 03/08/19 15:09 Interpretation: Hypertensive - Notes Notes: GENERAL: Well-appearing, well-nourished and in no acute distress. HEAD: Atraumatic, normocephalic. EYES: Pupils equal round and reactive to light, extraocular movements intact, sclera anicteric, conjunctiva are normal. ENT: TMs normal, nares patent, oropharynx clear without exudates. Moist mucous membranes. NECK: Normal range of motion, supple without lymphadenopathy or JVD. LUNGS: Breath sounds clear to auscultation bilaterally and equal. No wheezes rales or rhonchi. HEART: Regular rate and rhythm without murmurs, rubs or gallops. ABDOMEN: Soft, nontender, normoactive bowel sounds. No guarding, no rebound. No masses appreciated. BACK: No cervical, thoracic, lumbar midline tenderness. No saddle anesthesia, normal distal neurovascular exam. GENITOURINARY: Deferred. EXTREMITIES: Normal range of motion, + 1 non pitting edema to left foot, + strong left dorsalis pedis pulse, tenderness to left lateral foot and left lateral ankle. No clubbing or cyanosis. Tenderness to the 4th and 5th metatarsals. No lacerations, lesions, open wounds. Normal ROM to left ankle. No erythema. NEUROLOGICAL: Cranial nerves II through XII grossly intact. Normal speech, normal gait. PSYCH: Normal mood, normal affect. SKIN: Warm, Dry, normal turgor, no rashes or lesions noted. Course - Re-evaluation Re-evalutation: 03/08/19 20:40 Initial assessment patient resting currently on stretcher. Please see physical examination. Per the acute gout diagnostic role patient is 12 points which is significantly high for acute gout flare. Patient's serum uric acid is 10. Patient is already taking Colchicine gout in his right foot. Patient states he was instructed by his supervisor color making and business attorney to take 1 dose and to wait a few days to take the other dose. Patient did take a dose of colchicine this morning. I did inform the patient that the typical treatment is NSAIDs such as ibuprofen, Aleve, Advil but due to his history I would avoid these medications. Patient states he has been told by multiple doctors that he is not to take NSAIDs. Patient to continue taking Tylenol as needed for pain and to follow-up with his primary care physician at Dr. Cruz for further evaluation. - Vital Signs Vital signs: Temp Pulse Resp BP Pulse Ox 97.8 F 57 L 16 142/82 H 100 03/08/19 18:32 03/08/19 18:32 03/08/19 18:32 03/08/19 18:32 03/08/19 18:32 - Laboratory Result Diagrams: 03/08/19 17:02 03/08/19 17:02 Laboratory results interpreted by me: 03/08/19 03/08/19 17:02 17:02 Hgb 10.9 L Hct 34.2 L MCV 75 L MCH 23.9 L MCHC 31.7 L RDW 15.8 H BUN 41 H Creatinine 2.15 H Est GFR ( Amer) 37 L Est GFR (Non-Af Amer) 31 L Glucose 265 H Uric Acid 10.3 H - Diagnostic Test Radiology reviewed: Reports reviewed Discharge - Discharge Clinical Impression: Foot pain, left, CKD (chronic kidney disease), stage III, Diabetes mellitus type 2 in nonobese Gout Qualifiers: Gout site: foot Gout etiology: unspecified cause Chronicity: acute Laterality: left Qualified Code(s): M10.9 - Gout, unspecified Condition: Stable Disposition: HOME, SELF-CARE Additional Instructions: You are seen in the emergency department for left foot pain. We did obtain an x-ray of the foot to rule out fracture, dislocation, bone spurs or any other abnormality. The x-ray of the foot was normal. The uric acid and your blood work was slightly elevated and due to your history you have significant risk factors for gout. We will treat this as a gout flare. I have discussed with you to avoid NSAIDs as you have been told by her supervisor color making and business attorney to avoid these medications. Please continue taking her colchicine as previously prescribed. I have provided you education hurting gout in the foods to avoid. Please avoid alcohol if possible. Follow-up with your primary care physician Dr. Cruz for follow-up. Please return to the emergency department for worsening signs or symptoms. Please monitor your blood sugars as you are glucose was slightly elevated in the 200s. Take your diabetes medication as you have missed her dose today. Gout You have been diagnosed as having gout. Gout is a problem caused by an excess of uric acid, a natural chemical found in the body. The cause of this disease is unknown. Gout arthritis occurs when crystals of uric acid form in the joints. The big toe is the most common joint involved, but any joint can become affected. Persons with gout may also form uric acid kidney stones, resulting in flank pain and blood in the urine. Nodules of uric acid may form under the skin. The first step of treatment is to decrease the inflammation in the joint with antiinflammatory medication. Medication to lower the uric acid level in the blood may then be prescribed. This medication should be taken regularly, as any sudden change in dosage may provoke an attack of gout. Some foods, such as red meat, can provoke an attack in some gout sufferers. Call the doctor if new symptoms arise, or if you do not improve. Gout Diet Changing your diet can decrease the uric acid in your blood. High levels of uric acid cause gouty arthritis and uric acid kidney stones. If you have gout, you should avoid meats that are high in purine. Meat products to avoid include liver, kidneys, and brains. In general, poultry is better than red meats. Seafoods to avoid include anchovies, sardines, vargas, mackerel, and scallops. In addition to limiting purine-rich foods, people with gout should limit protein intake to 10-15% of total calories. Carbohydrate intake should be around 50% of total daily calories. Limit fat intake to 30% of total daily calories. Cholesterol intake should be less than 300 mg/day. Maintain or achieve a healthy body weight. Weight loss should be gradual. Rapid weight loss can actually increase uric acid levels temporarily. Alcohol, especially beer, should be avoided. Get plenty of fluids. This dilutes urinary uric acid, and helps prevent uric acid kidney stones. Referrals: NIRALI SERRANO MD [ACTIVE STAFF] - Follow up as needed
[2019-03-08] MEDS ORDERED: ACETAMINOPHEN 325 MG TABLET PO ONE (21:01)
[2019-03-08 21:17] VITALS: BP 142/72
== END 2019-03-08 21:11 | disposition home or self-care (01) ==
LOC: ER 14:57
DX: M10.9 Gout, unspecified (principal); M79.672 Pain in left foot; I13.0 Hypertensive heart and chronic kidney disease with heart failure and stage 1 through stage 4 chronic kidney disease, or unspecified chronic kidney disease; I50.20 Unspecified systolic (congestive) heart failure; N18.3 Chronic kidney disease, stage 3 (moderate); E11.22 Type 2 diabetes mellitus with diabetic chronic kidney disease; Z79.899 Other long term (current) drug therapy; J44.9 Chronic obstructive pulmonary disease, unspecified; Z95.810 Presence of automatic (implantable) cardiac defibrillator
CPT/HCPCS: 99283; 36415; 84550; 85025; 86140; 80053; 73630; A9270

== ENCOUNTER 2019-04-19 05:16 | Emergency (ER) | payer MEDICARE, OTHER ==
[2019-04-19] MEDS ORDERED: DEXAMETHASONE SOD PHOS INJ 10 MG/1 ML VIAL IM ONE (07:58)
[2019-04-19] MEDS ORDERED: HYDROCODONE/ACETAMINOPHEN 5-325 MG TABLET PO ONE (08:00)
--- NOTE | 2019-04-19 08:05 | ER Document Report ---
ED Extremity Problem, Lower - General Chief Complaint: Foot Pain Stated Complaint: FOOT PAIN Time Seen by Provider: 04/19/19 07:38 Primary Care Provider: RUFINA LOWRY MD [Primary Care Provider] - Follow up as needed Notes: 68-year-old male presents with left foot pain that started yesterday. Patient stated this feels just like his gout it started in his left great toe and is now spread to his ankle. He denies any trauma to the foot. Describes severe sharp pain [id number] sensation to his great toe and down his ankle laterally. He denies stepping on anything. Denies fever chills TRAVEL OUTSIDE OF THE [place] IN LAST 30 DAYS: No - Related Data Allergies/Adverse Reactions: promethazine [From Phenergan] Adverse Reaction (Intermediate, Verified 02/13/19 20:26) Dystonia Past Medical History - Social History Smoking Status: Unknown if Ever Smoked Family History: DM, Hypertension Patient has suicidal ideation: No Patient has homicidal ideation: No - Past Medical History Cardiac Medical History: Reports: Hx Atrial Fibrillation - Paroxysmal, Hx Congestive Heart Failure - Systolic; ejection fraction 2017 of approximately 20%., Hx Coronary Artery Disease, Hx Heart Attack - [place] December 2016, Hx Hypercholesterolemia, Hx Hypertension Denies: Hx DVT, Hx Pulmonary Embolism Pulmonary Medical History: Reports: Hx Bronchitis, Hx COPD - Nightly and as needed 2 L oxygen per nasal cannula, Hx Sleep Apnea - Nasal CPAP; pressure 10 Denies: Hx Asthma Neurological Medical History: Denies: Hx Seizures Endocrine Medical History: Reports: Hx Diabetes Mellitus Type 2. Denies: Hx Diabetes Mellitus Type 1, Hx Hyperthyroidism, Hx Hypothyroidism Renal/ Medical History: Reports: Hx Renal Insufficiency. Denies: Hx Peritoneal Dialysis GI Medical History: Reports: Hx Gastroesophageal Reflux Disease, Hx Colonoscopy, Hx Endoscopy. Denies: Hx Cirrhosis Musculoskeletal Medical History: Reports Hx Arthritis, Reports Hx Gout - Primarily affecting left ankle and foot, Reports Hx Musculoskeletal Deformity - Back pain for 4-5 years Psychiatric Medical History: Denies: Hx Depression Infectious Medical History: Denies: Hx C-Diff, Hx MRSA Past Surgical History: Reports: Hx Cardiac Surgery - DEFIB, Hx Orthopedic Surgery - right rotator cuff. Denies: Hx Pacemaker - Immunizations Hx Diphtheria, Pertussis, Tetanus Vaccination: Yes Hx Pneumococcal Vaccination: 11/05/13 Review of Systems - Review of Systems Constitutional: denies: Chills, Fever Cardiovascular: denies: Chest pain, Edema Respiratory: denies: Cough, Short of breath Musculoskeletal: Joint pain Neurological/Psychological: denies: Headaches -: Yes All other systems reviewed and negative Physical Exam - Vital signs Vitals: Temp Pulse Resp BP Pulse Ox 97.9 F 79 16 127/65 H 96 04/19/19 05:23 04/19/19 05:23 04/19/19 05:23 04/19/19 05:04/19/19 05:23 - Notes Notes: GENERAL_APPEARANCE: well_nourished, alert, cooperative, uncomfortable VITALS: reviewed, see vital signs table. HEAD: no_swelling\tenderness on the head. EYES: PERRL, EOMI, conjunctiva_clear. NOSE: no_nasal_discharge. MOUTH: (-)decreased moisture. EXTREMITIES: Left great toe is swollen and painful there is no redness or heat but very painful at the base left ankle lateral malleolus is tender but not significantly swollen no redness or heat is noted strong dorsalis pedis posterior tibial pulses noted brisk capillary refill noted SKIN: warm, dry, good_color, no_rash. MENTAL_STATUS: speech_clear, oriented_X_3, normal_affect, responds_appropriately to questions. Course - Re-evaluation Re-evalutation: 04/19/19 08:04 Patient presents with gout. He is asking for steroid shot states that usually with a give him. Patient will be discharged home with Indocin and Medrol Dosepak. Patient otherwise will be discharged home he has had this on several occasions before. - Vital Signs Vital signs: Temp Pulse Resp BP Pulse Ox 97.9 F 79 16 127/65 H 96 04/19/19 05:23 04/19/19 05:23 04/19/19 05:04/19/19 05:23 04/19/19 05:23 Discharge - Discharge Clinical Impression: Gout Qualifiers: Gout site: ankle Gout etiology: unspecified cause Chronicity: acute Laterality: left Qualified Code(s): M10.9 - Gout, unspecified Condition: Good Disposition: HOME, SELF-CARE Instructions: Gout ([facility]), Gout Diet ([facility]) Prescriptions: Indomethacin [Indocin 50 mg Capsule] 50 mg PO BID #30 capsule Methylprednisolone [Medrol Dosepack (4 mg/Tab) 21 Tab/Dosepak] 4 mg PO ASDIR PRN #[id number] PRN Reason: Referrals: RUFINA LOWRY MD [Primary Care Provider] - Follow up as needed
[2019-04-19] MEDS ORDERED: ACETAMINOPHEN 325 MG TABLET PO ONE (08:57)
[2019-04-19 09:06] VITALS: BP 120/63
== END 2019-04-19 09:06 | disposition home or self-care (01) ==
LOC: ER 05:16
DX: M10.9 Gout, unspecified (principal); M79.672 Pain in left foot; I25.10 Atherosclerotic heart disease of native coronary artery without angina pectoris; I10 Essential (primary) hypertension; J44.9 Chronic obstructive pulmonary disease, unspecified; E11.9 Type 2 diabetes mellitus without complications
CPT/HCPCS: 99283; 96372; A9270 ×2; J1100

== ENCOUNTER 2019-04-20 11:57 | Emergency (ER) | payer MEDICARE, OTHER ==
[2019-04-20] MEDS ORDERED: ASPIRIN 81 MG TABLET, CHEWABLE PO ONE (12:41)
--- NOTE | 2019-04-20 13:26 | RADIOLOGY REPORT (SQ) ---
EXAM DESCRIPTION: CHEST SINGLE VIEW COMPLETED DATE/TIME: 04/20/2019 1:15 pm REASON FOR STUDY: bed 14 cp COMPARISON: None. EXAM PARAMETERS: NUMBER OF VIEWS: One view. TECHNIQUE: Single frontal radiographic view of the chest acquired. RADIATION DOSE: NA LIMITATIONS: None. FINDINGS: LUNGS AND PLEURA: No opacities, masses or pneumothorax. No pleural effusion. MEDIASTINUM AND HILAR STRUCTURES: Unchanged infrahilar soft tissue density from multiple remote prior s. Calcified mediastinal nodes likely. HEART AND VASCULAR STRUCTURES: Heart normal in size. Normal vasculature. BONES: No acute findings. Bone anchors overlie right humerus. HARDWARE: None in the chest. OTHER: No other significant finding. IMPRESSION: No evidence of acute cardiopulmonary process. TECHNICAL DOCUMENTATION: JOB ID: [id number] [employer]- All Rights Reserved Reading location - IP/workstation name: [email or web address]
[2019-04-20 13:28] LABS: ABSOLUTE LYMPHOCYTES (AUTO) 1.2 10^3/uL (0.5-4.7); ABSOLUTE MONOCYTES (AUTO) 1.2 10^3/uL (0.1-1.4); ABSOLUTE NEUT (AUTO) 12.9 10^3/uL (1.7-8.2); BASOPHILS % (AUTO) 0.2 % (0-2); EOSINOPHILS % (AUTO) 0.1 % (0-6); HEMATOCRIT 32.9 % (37.9-51.0); HEMOGLOBIN 10.4 g/dL (13.5-17.0); LYMPHOCYTES % (AUTO) 7.8 % (13-45); MEAN CORPUSCULAR HEMOGLOBIN 23.4 pg (27.0-33.4); MEAN CORPUSCULAR HGB CONC 31.5 g/dL (32.0-36.0); MEAN CORPUSCULAR VOLUME 74 fl (80-97); MONOCYTES % (AUTO) 7.6 % (3-13); PLATELET COUNT 153 10^3/uL (150-450); RED BLOOD COUNT 4.43 10^6/uL (4.35-5.55); RED CELL DISTRIBUTION WIDTH 14.1 % (11.5-14.0); SEGMENTED NEUTROPHILS % (AUTO) 84.3 % (42-78); TOTAL CELLS COUNTED % (AUTO) 100 %; WHITE BLOOD COUNT 15.4 10^3/uL (4.0-10.5)
[2019-04-20 13:35] LABS: ALBUMIN 4.5 g/dL (3.5-5.0); ALKALINE PHOSPHATASE 94 U/L (38-126); ANION GAP 10 (5-19); ASPARTATE AMINO TRANSFERASE 27 U/L (17-59); BILIRUBIN,DIRECT 0.2 mg/dL (0.0-0.4); BILIRUBIN,TOTAL 0.4 mg/dL (0.2-1.3); BLOOD UREA NITROGEN 42 mg/dL (7-20); CALCIUM 10.4 mg/dL (8.4-10.2); CARBON DIOXIDE 33 mmol/L (22-30); CHLORIDE 98 mmol/L (98-107); CREATINE KINASE 351 U/L (55-170); GLUCOSE 115 mg/dL (75-110); POTASSIUM 4.1 mmol/L (3.6-5.0); TOTAL PROTEIN 7.5 g/dL (6.3-8.2)
[2019-04-20 13:48] LABS: CREATINE KINASE MB 4.41 ng/mL (<4.55); TROPONIN I 0.016 ng/mL
--- NOTE | 2019-04-20 14:49 | EKG REPORT ---
SEVERITY:- ABNORMAL ECG - SINUS RHYTHM LEFT ANTERIOR FASCICULAR BLOCK BORDERLINE R WAVE PROGRESSION, ANTERIOR LEADS BORDERLINE T WAVE ABNORMALITIES : Confirmed by: Dionicio Mckeon 20-Apr-2019 14:49:07
[2019-04-20 15:19] LABS: APPEARANCE,URINE CLEAR; BILIRUBIN,URINE NEGATIVE (NEGATIVE); COLOR,URINE STRAW; GLUCOSE, URINE NEGATIVE (NEGATIVE); KETONES,URINE NEGATIVE (NEGATIVE); LEUKOCYTE ESTERASE,URINE NEGATIVE (NEGATIVE); NITRITE,URINE NEGATIVE (NEGATIVE); PROTEIN,URINE NEGATIVE (NEGATIVE); UROBILINOGEN,URINE NEGATIVE mg/dL (<2.0)
[2019-04-20 17:19] VITALS: BP 131/70
--- NOTE | 2019-04-21 21:30 | ER Document Report ---
Entered by FAISAL CODY SCRIBE 04/20/19 1527 Acting as scribe for:ATY HURD DO ED Cardiac - General Chief Complaint: Chest Pain Stated Complaint: CHEST PAIN Time Seen by Provider: 04/20/19 14:31 Primary Care Provider: DIPAK BHAKTA MD [ACTIVE STAFF] - Follow up tomorrow RUFINA LOWRY MD [Primary Care Provider] - Follow up as needed Mode of Arrival: Ambulatory Information source: Patient Notes: Patient is a 68-year-old male with CHF and cardiomyopathy who presents to the emergency department today with complaints of chest pressure. Patient states that his first chest pressure started this morning at 0310. Patient states that he thought this pain was reflux related so he took some antacids. Patient repo rts completely resolution of pain after antacids. Patient states that this afternoon just prior to arrival here he was at a routine blood work appointment at Dr. Ordonez, hematology/oncology office when he began having this same chest pain again. Patient states that he informed Dr. Ordonez of the pain he was having. Patient states that Dr. Ordonez gave him aspirin and sent him here for evaluation. Patient denies any history of stent placement. Patient states he has had a recent uneventful cardiac catheterization however he cannot remember the exact date of it. TRAVEL OUTSIDE OF THE [place] IN LAST 30 DAYS: No - Related Data Allergies/Adverse Reactions: promethazine [From Phenergan] Adverse Reaction (Intermediate, Verified 02/13/19 20:26) Dystonia Past Medical History - General Information source: Patient - Social History Smoking Status: Never Smoker Cigarette use (# per day): No Chew tobacco use (# tins/day): No Frequency of alcohol use: None Drug Abuse: None Lives with: Family Family History: Reviewed & Not Pertinent, DM, Hypertension Patient has suicidal ideation: No Patient has homicidal ideation: No - Past Medical History Cardiac Medical History: Reports: Hx Atrial Fibrillation - Paroxysmal, Hx Congestive Heart Failure - Systolic; ejection fraction 2016 of approximately 20%., Hx Coronary Artery Disease, Hx Heart Attack - [place] December 2016, Hx Hypercholesterolemia, Hx Hypertension Pulmonary Medical History: Reports: Hx Bronchitis, Hx COPD - Nightly and as needed 2 L oxygen per nasal cannula, Hx Sleep Apnea - Nasal CPAP; pressure 10 Endocrine Medical History: Reports: Hx Diabetes Mellitus Type 2 Renal/ Medical History: Reports: Hx Renal Insufficiency GI Medical History: Reports: Hx Gastroesophageal Reflux Disease, Hx Colonoscopy, Hx Endoscopy Musculoskeletal Medical History: Reports Hx Arthritis - gout, Reports Hx Gout - Primarily affecting left ankle and foot, Reports Hx Musculoskeletal Deformity - Back pain for 4-5 years Infectious Medical History: Past Surgical History: Reports: Hx Cardiac Surgery - DEFIB, pt states no. states it was portable, Hx Orthopedic Surgery - right rotator cuff - Immunizations Hx Diphtheria, Pertussis, Tetanus Vaccination: Yes Hx Pneumococcal Vaccination: 11/05/13 Review of Systems - Review of Systems Constitutional: No symptoms reported EENT: No symptoms reported Cardiovascular: See HPI, Chest pain Respiratory: No symptoms reported Gastrointestinal: denies: Abdominal pain Genitourinary: No symptoms reported Male Genitourinary: No symptoms reported Musculoskeletal: No symptoms reported Skin: No symptoms reported Hematologic/Lymphatic: No symptoms reported Neurological/Psychological: No symptoms reported -: Yes All other systems reviewed and negative Physical Exam - Vital signs Vitals: Pulse Ox 98 04/20/19 12:04 - Notes Notes: Physical Exam: General: Alert, appears well. HEENT: Normocephalic. Atraumatic. PERRL. Extraocular movements intact. Oropharynx clear. Neck: Supple. Non-tender. Respiratory: No respiratory distress. Clear and equal breath sounds bilaterally. Cardiovascular: Regular rate and rhythm. Abdominal: Normal Inspection. Non-tender. No distension. Normal Bowel Sounds. Back: Non-tender. No deformity or step off. Extremities: Moves all four extremities. Upper extremities: Normal inspection. Normal ROM. Lower extremities: Normal inspection. No edema. Normal ROM. Neurological: Normal cognition. AAOx4. Normal speech. Psychological: Normal affect. Normal Mood. Skin: Warm. Dry. Normal color. Course - Re-evaluation Re-evalutation: 04/20/19 16:[address] Linder who requests for the patient to call him on his cell phone tomorrow. 04/20/19 18:06 Called and updated patient's per patient request. Patient is a pleasant 68-year-old male who comes in complaining of intermittent chest pain. States that he had a 3 AM, took medication for reflux and it went away. Patient has 2- troponins here. No EKG changes. I have spoken to his automotive vehicle inspector who agrees that the patient can be discharged home. He would like him to follow-up tomorrow in the office. I have discussed this with the patient and also his . They are agreeable to this plan. Stable for discharge. Return if any worsening or concerning symptoms. Of note, the patient has had no chest pain in the emergency department. - Vital Signs Vital signs: Temp Pulse Resp BP Pulse Ox 97.3 F 73 11 L 131/70 H 98 04/20/19 12:10 04/20/19 12:10 04/20/19 17:01 04/20/19 17:01 04/20/19 17:01 - Laboratory Result Diagrams: 04/20/19 12:55 04/20/19 12:55 Laboratory results interpreted by me: 04/20/19 04/20/19 04/20/19 12:55 12:55 13:17 WBC 15.4 H Hgb 10.4 L Hct 32.9 L MCV 74 L MCH 23.4 L MCHC 31.5 L RDW 14.1 H Seg Neutrophils % 84.3 H Lymphocytes % 7.8 L Absolute Neutrophils 12.9 H Carbon Dioxide 33 H BUN 42 H Creatinine 2.35 H Est GFR ( Amer) 33 L Est GFR (Non-Af Amer) 28 L Glucose 115 H Calcium 10.4 H Creatine Kinase 351 H Urine Blood SMALL H - Diagnostic Test Radiology reviewed: Reports reviewed - EKG Interpretation by Me EKG shows normal: Sinus rhythm Rate: Normal Rhythm: NSR When compared to previous EKG there are: No significant change Discharge - Discharge Clinical Impression: Atypical chest pain Condition: Stable Disposition: HOME, SELF-CARE Instructions: Chest Pain of Unclear Cause ([facility]) Referrals: RUFINA LOWRY MD [Primary Care Provider] - Follow up as needed DIPAK BHAKTA MD [ACTIVE STAFF] - Follow up tomorrow Scribe Attestation: 04/21/19 21:29 I personally performed the services described in the documentation, reviewed and edited the documentation which was dictated to the scribe in my presence, and it accurately records my words and actions. I personally performed the services described in the documentation, reviewed and edited the documentation which was dictated to the scribe in my presence, and it accurately records my words and actions.
== END 2019-04-20 18:13 | disposition home or self-care (01) ==
LOC: ER 11:57
DX: R07.89 Other chest pain (principal); I48.91 Unspecified atrial fibrillation; I50.9 Heart failure, unspecified; E78.00 Pure hypercholesterolemia, unspecified; I11.0 Hypertensive heart disease with heart failure; J44.9 Chronic obstructive pulmonary disease, unspecified; E11.9 Type 2 diabetes mellitus without complications; Z99.81 Dependence on supplemental oxygen; I25.2 Old myocardial infarction
CPT/HCPCS: 93005; 94640; 99285; 36415; 82553; 82962; 82550; 85025; 80053; 81001; 84484; 71045; 93010; A9270

== ENCOUNTER 2019-05-08 12:16 | Emergency (ER) | payer MEDICARE, OTHER ==
--- NOTE | 2019-05-08 13:06 | ER Document Report ---
ED Medical Screen (RME) - General Chief Complaint: Elbow Injury Stated Complaint: ELBOW SWELLING Time Seen by Provider: 05/08/19 12:56 Primary Care Provider: RUFINA LOWRY MD [Primary Care Provider] - Follow up as needed Notes: Patient is a 68-year-old male presents to the emergency department with a chief complaint of right elbow pain. Patient states that he believes he has gout. He states he was seen here a few months ago for the same. Patient states he has taken Tylenol and 2 doses of colchicine without much relief. Patient reports right elbow swelling but denies fall or injury. Patient states he has had similar pain in the past where they drain the fluid out of his elbow, give a steroid injection and place him on extra strength Tylenol. Patient states he is here to have these interventions performed. Patient reports the right elbow pain and swelling started on evening. TRAVEL OUTSIDE OF THE [place] IN LAST 30 DAYS: No - Related Data Allergies/Adverse Reactions: promethazine [From Phenergan] Adverse Reaction (Intermediate, Verified 05/08/19 12:17) Dystonia Past Medical History - Past Medical History Cardiac Medical History: Reports: Hx Atrial Fibrillation - Paroxysmal, Hx Congestive Heart Failure - Systolic; ejection fraction 2017 of approximately 20%., Hx Coronary Artery Disease, Hx Heart Attack - [place] December 2016, Hx Hypercholesterolemia, Hx Hypertension Denies: Hx DVT, Hx Pulmonary Embolism Pulmonary Medical History: Reports: Hx Bronchitis, Hx COPD - Nightly and as needed 2 L oxygen per nasal cannula, Hx Sleep Apnea - Nasal CPAP; pressure 10 Denies: Hx Asthma Neurological Medical History: Denies: Hx Seizures Endocrine Medical History: Reports: Hx Diabetes Mellitus Type 2. Denies: Hx Diabetes Mellitus Type 1, Hx Hyperthyroidism, Hx Hypothyroidism Renal/ Medical History: Reports: Hx Renal Insufficiency. Denies: Hx Peritoneal Dialysis GI Medical History: Reports: Hx Gastroesophageal Reflux Disease, Hx Colonoscopy, Hx Endoscopy. Denies: Hx Cirrhosis Musculoskeltal Medical History: Reports Hx Arthritis - gout, Reports Hx Gout - Primarily affecting left ankle and foot, Reports Hx Musculoskeletal Deformity - Back pain for 4-5 years Psychiatric Medical History: Denies: Hx Depression Infectious Medical History: Denies: Hx C-Diff, Hx MRSA Past Surgical History: Reports: Hx Cardiac Surgery - DEFIB, pt states no. states it was portable, Hx Orthopedic Surgery - right rotator cuff. Denies: Hx Fede nguyen - Immunizations Hx Diphtheria, Pertussis, Tetanus Vaccination: Yes Physical Exam - Vital signs Vitals: Temp Pulse Resp BP Pulse Ox 100.3 F 102 H 17 130/64 H 98 05/08/19 12:23 05/08/19 12:05/08/19 12:05/08/19 12:05/08/19 12:23 - Extremities Notes: Tenderness and swelling noted to the right olecranon. Patient is able to move the elbow joint but reports significant pain. There is no redness. Course - Re-evaluation Re-evalutation: 05/08/19 13:04 Patient symptoms do not appear consistent with gout but perhaps a bursitis. Patient denies trauma or fall. Will obtain an x-ray to verify that there is no joint or bony involvement. I did offer her Tylenol while in triage. Patient states he does not want any Tylenol until his elbow is drained. I have greeted and performed a rapid initial assessment of this patient. A comprehensive ED assessment and evaluation of the patient, analysis of test results and completion of the medical decision making process will be conducted by additional ED providers. - Vital Signs Vital signs: Temp Pulse Resp BP Pulse Ox 100.3 F 102 H 17 130/64 H 98 05/08/19 12:23 05/08/19 12:05/08/19 12:05/08/19 12:05/08/19 12:23 Doctor's Discharge - Discharge Referrals: RUFINA LOWRY MD [Primary Care Provider] - Follow up as needed
--- NOTE | 2019-05-08 13:39 | RADIOLOGY REPORT (SQ) ---
EXAM DESCRIPTION: ELBOW RIGHT AP/LAT COMPLETED DATE/TIME: 05/08/2019 1:24 pm REASON FOR STUDY: right elbow swelling/pain COMPARISON: None. NUMBER OF VIEWS: Four views right elbow. LIMITATIONS: None. FINDINGS: Elevated fat pad anteriorly. Consistent with a joint effusion. Coarse appearing calcification along the medial epicondyle is consistent with medial epicondylitis. No acute fracture identified. There is olecranon soft tissue swelling generally with calcifications along triceps insertion. Patie nt denies injury by history. Presumably olecranon bursitis and chronic change. OTHER: No other significant finding. IMPRESSION: 1. Joint effusion. 2. Probable olecranon bursitis and triceps enthesopathy. 3. No fracture identified. TECHNICAL DOCUMENTATION: JOB ID: [id number] Reading location - IP/workstation name: [email or web address]
[2019-05-08] MEDS ORDERED: ACETAMINOPHEN 325 MG TABLET PO ONE (19:00)
--- NOTE | 2019-05-08 19:00 | ER Document Report ---
ED Extremity Problem, Upper - General Chief Complaint: Elbow Injury Stated Complaint: ELBOW SWELLING Time Seen by Provider: 05/08/19 12:56 Primary Care Provider: RUFINA LOWRY MD [Primary Care Provider] - Follow up as needed CORAL DURAN MD [ACTIVE STAFF] - Follow up in 3-5 days Notes: Patient is a 68-year-old male who presents to the emergency department with a chief complaints of right elbow pain. Patient has a history of gout and feels like this is 1 of his gout flareups. Patient states that he has had cortisone injections and his elbow drained before here emergency department. Last time he was here he was to follow-up with Dr. Duran, which he did. Patient states that his symptoms started on . He is unable to put his elbow completely straight, which usually happens during an acute gout flare. Patient has diabetes, congestive heart failure, hyperlipidemia, hypertension, and is currently on Eliquis. He said he took his colchicine this morning, but did not have any relief. He only took 1 pill at that time. Denies any fever, body aches, or chills. TRAVEL OUTSIDE OF THE [place] IN LAST 30 DAYS: No - Related Data Allergies/Adverse Reactions: promethazine [From Phenergan] Adverse Reaction (Intermediate, Verified 05/08/19 12:17) Dystonia Past Medical History - Social History Smoking Status: Never Smoker Chew tobacco use (# tins/day): No Frequency of alcohol use: None Drug Abuse: None Family History: Reviewed & Not Pertinent, DM, Hypertension Patient has suicidal ideation: No Patient has homicidal ideation: No - Past Medical History Cardiac Medical History: Reports: Hx Atrial Fibrillation - Paroxysmal, Hx Congestive Heart Failure - Systolic; ejection fraction 2017 of approximately 20%., Hx Coronary Artery Disease, Hx Heart Attack - [place] December 2016, Hx Hypercholesterolemia, Hx Hypertension Denies: Hx DVT, Hx Pulmonary Embolism Pulmonary Medical History: Reports: Hx Bronchitis, Hx COPD - Nightly and as needed 2 L oxygen per nasal cannula, Hx Sleep Apnea - Nasal CPAP; pressure 10 Denies: Hx Asthma Neurological Medical History: Denies: Hx Seizures Endocrine Medical History: Reports: Hx Diabetes Mellitus Type 2. Denies: Hx Diabetes Mellitus Type 1, Hx Hyperthyroidism, Hx Hypothyroidism Renal/ Medical History: Reports: Hx Renal Insufficiency. Denies: Hx Peritoneal Dialysis GI Medical History: Reports: Hx Gastroesophageal Reflux Disease, Hx Colonoscopy, Hx Endoscopy. Denies: Hx Cirrhosis Musculoskeletal Medical History: Reports Hx Arthritis - gout, Reports Hx Gout - Primarily affecting left ankle and foot, Reports Hx Musculoskeletal Deformity - Back pain for 4-5 years Psychiatric Medical History: Denies: Hx Depression Infectious Medical History: Denies: Hx C-Diff, Hx MRSA Past Surgical History: Reports: Hx Cardiac Surgery - DEFIB, pt states no. states it was portable, Hx Orthopedic Surgery - right rotator cuff. Denies: Hx Pacemaker - Immunizations Hx Diphtheria, Pertussis, Tetanus Vaccination: Yes Hx Pneumococcal Vaccination: 11/05/13 Review of Systems - Review of Systems Notes: REVIEW OF SYSTEMS: CONSTITUTIONAL : Denies recent illness. Denies recent unintentional weight loss. Denies fever, chills, or sweats. EENT: Denies eye, ear, throat, or mouth pain, discharge, or symptoms. Denies nasal or sinus congestion. CARDIOVASCULAR: Denies chest pain. RESPIRATORY: Denies shortness of breath, cough, congestion, difficulty breathing, or wheezing. GASTROINTESTINAL: Denies nausea, vomiting, and diarrhea. Denies abdominal pain. Denies constipation. GENITOURINARY: Denies difficulty urinating, burning, blood in urine, urgency or frequency. MUSCULOSKELETAL: Denies neck and back pain. See HPI. SKIN: Denies rash, itchiness, or lesions HEMATOLOGIC : Denies easy bruising or bleeding. LYMPHATIC: Denies swollen, painful, enlarged glands. NEUROLOGICAL: Denies no numbness or tingling denies weakness. Denies headache. Denies altered mental status. Denies alteration in speech. PSYCHIATRIC: Denies stress, anxiety, alteration in sleep patterns, or depression. All other systems reviewed and negative. Physical Exam - Vital signs Vitals: Temp Pulse Resp BP Pulse Ox 100.3 F 102 H 17 130/64 H 98 05/08/19 12:23 05/08/19 12:23 05/08/19 12:23 05/08/19 12:05/08/19 12:23 - Notes Notes: PHYSICAL EXAMINATION: GENERAL: Appears well, healthy, well-nourished, no acute distress. HEAD: Normocephalic, atraumatic. EYES: PERRL, conjunctiva normal, all extraocular movements intact, sclera nonicteric. EXTREMITIES: Normal strength and range of motion, no pitting or edema. No cyanosis. NEUROLOGICAL: Moves all extremities upon command. Strength 4/5 in right elbow joint; 5/5 in all other extremities. MSK: Soft nonindurated right elbow joint. Obvious bursitis noted. PSYCH: Normal mood, normal affect. SKIN: Warm, dry. No rash, lesions, ulcerations noted. Normal skin turgor. Course - Re-evaluation Re-evalutation: 05/08/19 18:00 The patient did not have a steroid injection or joint drainage last time he was here in the hospital. I will consult Dr. Gonzalez in regards to this case. X-ray does not show any acute fracture. X-ray shows that there is a joint effusion, but no fracture or osteomyelitis noted. 05/08/19 18:55 Dr. Gonzalez evaluated the patient with me. The patient does not have any signs of infection. The patient currently being on Eliquis and also being a diabetic, Dr. Gonzalez agrees that the risk out way the benefits for the patient to have his joint drained and injected with steroids. Dr. Gonzalez also does not do joint aspirations unless a septic joint is suspected. We have a very low suspicion for a septic joint. Patient is requesting that he receive some Tylenol and a steroid injection. Patient will follow-up with Dr. Duran. Follow-up precautions were given. Verbal discharge instructions were given to the patient. They verbalized understanding. They are stable for discharge. - Vital Signs Vital signs: Temp Pulse Resp BP Pulse Ox 98.6 F 77 18 134/78 H 100 05/08/19 19:12 05/08/19 19:12 05/08/19 19:12 05/08/19 19:12 05/08/19 19:12 Discharge - Discharge Clinical Impression: Right elbow pain Condition: Stable Disposition: HOME, SELF-CARE Additional Instructions: You were seen today in the emergency department for right elbow pain. Your x- ray did not show any bone infection. You were also given a dose of steroids here in the emergency department to help with inflammation. You can take up to 4 doses of your colchicine in a day. When you take it for the first time, you can take 2 pills. Please follow-up with Dr. Duran in regards to this visit. Referrals: RUFINA LOWRY MD [Primary Care Provider] - Follow up as needed CORAL DURAN MD [ACTIVE STAFF] - Follow up in 3-5 days
[2019-05-08] MEDS ORDERED: DEXAMETHASONE SOD PHOS INJ 10 MG/1 ML VIAL IM ONE (19:01)
[2019-05-08 19:30] VITALS: BP 134/78
== END 2019-05-08 19:33 | disposition home or self-care (01) ==
LOC: ER 12:16
DX: M25.521 Pain in right elbow (principal); M70.30 Other bursitis of elbow, unspecified elbow; M25.421 Effusion, right elbow; I10 Essential (primary) hypertension; E11.9 Type 2 diabetes mellitus without complications; I48.0 Paroxysmal atrial fibrillation; Z79.02 Long term (current) use of antithrombotics/antiplatelets; I25.10 Atherosclerotic heart disease of native coronary artery without angina pectoris; I25.2 Old myocardial infarction; J44.9 Chronic obstructive pulmonary disease, unspecified; Z95.810 Presence of automatic (implantable) cardiac defibrillator
CPT/HCPCS: 99283; 73070; A9270; J1100

== ENCOUNTER → 2019-05-24 | Outpatient (CLI) | payer MEDICARE, OTHER ==
[2019-05-24 08:50] LABS: ABSOLUTE BASOPHILS # (AUTO) 0.1 10^3/uL (0.0-0.2); ABSOLUTE EOSINOPHILS # (AUTO) 0.2 10^3/uL (0.0-0.6); ABSOLUTE LYMPHOCYTES (AUTO) 1.7 10^3/uL (0.5-4.7); ABSOLUTE MONOCYTES (AUTO) 0.7 10^3/uL (0.1-1.4); ABSOLUTE NEUT (AUTO) 4.6 10^3/uL (1.7-8.2); BASOPHILS % (AUTO) 1.2 % (0-2); EOSINOPHILS % (AUTO) 2.3 % (0-6); HEMATOCRIT 33.8 % (37.9-51.0); HEMOGLOBIN 10.6 g/dL (13.5-17.0); LYMPHOCYTES % (AUTO) 23.1 % (13-45); MEAN CORPUSCULAR HEMOGLOBIN 23.5 pg (27.0-33.4); MEAN CORPUSCULAR HGB CONC 31.2 g/dL (32.0-36.0); MEAN CORPUSCULAR VOLUME 75 fl (80-97); PLATELET COUNT 182 10^3/uL (150-450); RED CELL DISTRIBUTION WIDTH 15.3 % (11.5-14.0); SEGMENTED NEUTROPHILS % (AUTO) 63.4 % (42-78); TOTAL CELLS COUNTED % (AUTO) 100 %; WHITE BLOOD COUNT 7.3 10^3/uL (4.0-10.5)
[2019-05-24 08:59] LABS: APPEARANCE,URINE CLEAR; BILIRUBIN,URINE NEGATIVE (NEGATIVE); COLOR,URINE STRAW; GLUCOSE, URINE NEGATIVE (NEGATIVE); KETONES,URINE NEGATIVE (NEGATIVE); URINE SPECIFIC GRAVITY 1.018
[2019-05-24 09:00] LABS: LEUKOCYTE ESTERASE,URINE NEGATIVE (NEGATIVE); NITRITE,URINE NEGATIVE (NEGATIVE); PROTEIN,URINE 30 mg/dL (NEGATIVE); UROBILINOGEN,URINE NEGATIVE mg/dL (<2.0)
[2019-05-24 09:12] LABS: ALBUMIN 3.8 g/dL (3.5-5.0); ANION GAP 5 (5-19); BLOOD UREA NITROGEN 27 mg/dL (7-20); CARBON DIOXIDE 34 mmol/L (22-30); CHLORIDE 103 mmol/L (98-107); GLUCOSE 115 mg/dL (75-110); PHOSPHORUS 3.9 mg/dL (2.5-4.5); POTASSIUM 4.7 mmol/L (3.6-5.0)
== END ==
LOC: OD 08:09
PROVIDERS: ATTEND Internal Medicine Nephrology
DX: I12.9 Hypertensive chronic kidney disease with stage 1 through stage 4 chronic kidney disease, or unspecified chronic kidney disease (principal); N18.3 Chronic kidney disease, stage 3 (moderate); E11.22 Type 2 diabetes mellitus with diabetic chronic kidney disease; D63.1 Anemia in chronic kidney disease; N25.81 Secondary hyperparathyroidism of renal origin
CPT/HCPCS: 36415; 80069; 81001; 82043; 82306; 82570; 83970; 85025

== ENCOUNTER 2019-05-25 09:07 | Emergency (ER) | payer MEDICARE, OTHER ==
[2019-05-25 09:15] VITALS: BP 130/69
[2019-05-25] MEDS ORDERED: HYDROCODONE/ACETAMINOPHEN 5-325 MG (6 TAB/ER DISP) PO PRN (09:45)
[2019-05-25] MEDS ORDERED: ACETAMINOPHEN 325 MG TABLET PO ONE (09:45)
[2019-05-25] MEDS ORDERED: DEXAMETHASONE SOD PHOS INJ 10 MG/1 ML VIAL IM ONE (09:45)
--- NOTE | 2019-05-25 09:46 | ER Document Report ---
HPI - HPI Time Seen by Provider: 05/25/19 09:39 Pain Level: 5 Notes: Patient is a 5-year-old male presenting with right foot pain that has been going on for 3 days. Patient reports pain at the base of his right great toe that runs across the top of his foot. He reports history of gout. He states he was seen by his line staker this morning who did diagnose him with gout but requested he come to the emergency department for intramuscular steroid treatment. Patient denies any other symptoms, denies any injury to this area. - EENT EENT: DENIES: Sore Throat, Ear Pain, Eye problems - NEURO Neurology: DENIES: Headache, Weakness, Vision blurred, Dizzinesss / Vertigo - CARDIOVASCULAR Cardiovascular: DENIES: Chest pain - RESPIRATORY Respiratory: DENIES: Trouble Breathing, Coughing - GASTROINTESTINAL Gastrointestinal: DENIES: Abdominal Pain, Black / Bloody Stools - URINARY Urinary: DENIES: Dysuria, Urgency, Frequency - REPRODUCTIVE Reproductive: DENIES: Postmenopausal, Abnormal bleeding / discharge - MUSCULOSKELETAL Musculoskeletal: REPORTS: Extremity pain - R foot Past Medical History - General Information source: Patient - Social History Smoking Status: Never Smoker Chew tobacco use (# tins/day): No Frequency of alcohol use: None Drug Abuse: None Family History: Reviewed & Not Pertinent, DM, Hypertension Patient has suicidal ideation: No Patient has homicidal ideation: No - Past Medical History Cardiac Medical History: Reports: Hx Atrial Fibrillation - Paroxysmal, Hx Congestive Heart Failure - Systolic; ejection fraction 2017 of approximately 20%., Hx Coronary Artery Disease, Hx Heart Attack - [place] December 2016, Hx Hypercholesterolemia, Hx Hypertension Denies: Hx DVT, Hx Pulmonary Embolism Pulmonary Medical History: Reports: Hx Bronchitis, Hx COPD - Nightly and as needed 2 L oxygen per nasal cannula, Hx Sleep Apnea - Nasal CPAP; pressure 10 Denies: Hx Asthma Neurological Medical History: Denies: Hx Seizures Endocrine Medical History: Reports: Hx Diabetes Mellitus Type 2. Denies: Hx Diabetes Mellitus Type 1, Hx Hyperthyroidism, Hx Hypothyroidism Renal/ Medical History: Reports: Hx Renal Insufficiency. Denies: Hx Peritoneal Dialysis GI Medical History: Reports: Hx Gastroesophageal Reflux Disease, Hx Colonoscopy, Hx Endoscopy. Denies: Hx Cirrhosis Musculoskeletal Medical History: Reports Hx Arthritis - gout, Reports Hx Gout - Primarily affecting left ankle and foot, Reports Hx Musculoskeletal Deformity - Back pain for 4-5 years Psychiatric Medical History: Denies: Hx Depression Infectious Medical History: Denies: Hx C-Diff, Hx MRSA Past Surgical History: Reports: Hx Cardiac Surgery - DEFIB, pt states no. states it was portable, Hx Orthopedic Surgery - right rotator cuff. Denies: Hx Pacemaker - Immunizations Hx Diphtheria, Pertussis, Tetanus Vaccination: Yes Hx Pneumococcal Vaccination: 11/05/13 Vertical Provider Document - CONSTITUTIONAL Notes: PHYSICAL EXAMINATION: GENERAL: Well-appearing, well-nourished and in no acute distress. HEAD: Atraumatic, normocephalic. EYES: Pupils equal round extraocular movements intact, conjunctiva are normal. ENT: Nares patent NECK: Normal range of motion LUNGS: No respiratory distress Musculoskeletal: Normal range of motion, tenderness to palpation over right great toe and dorsal surface of right foot at the base of the second third and fourth toes. NEUROLOGICAL: Normal speech, normal gait. PSYCH: Normal mood, normal affect. SKIN: Warm, Dry, normal turgor, no rashes or lesions noted. - INFECTION CONTROL TRAVEL OUTSIDE OF THE [place] IN LAST 30 DAYS: No Course - Re-evaluation Re-evalutation: Patient treated with appropriate medications for gout. He will be discharged home in stable condition. Patient has been seen here numerous times for this in the past, patient reports the treatment that we have always given him helps rather quickly with his symptoms. The patient's emergency department workup and current diagnosis were explained to the patient and or family. Follow-up instructions were provided. Medications if prescribed were discussed. Instructions for when to return to the emergency department including specific worrisome symptoms were discussed with the patient and/or family. - Vital Signs Vital signs: Temp Pulse Resp BP Pulse Ox 97.5 F 92 20 130/69 H 100 05/25/19 09:13 05/25/19 09:13 05/25/19 09:13 05/25/19 09:13 05/25/19 09:13 Discharge - Discharge Clinical Impression: Gout attack Qualifiers: Gout site: foot Gout etiology: unspecified cause Laterality: right Qualified Code(s): M10.9 - Gout, unspecified Condition: Stable Disposition: HOME, SELF-CARE Additional Instructions: You were treated in the emergency department for acute gout. You were given a dose of IM dexamethasone also known as Decadron. This is a steroid. You were given 975 mg of Tylenol. You were sent home with a dose pack of hydrocodone. The last time you were here they also sent you home with a prescription for indomethacin and a steroid Dosepak. I have sent you home with a prescription for the same medications. Please follow-up with your line staker as discussed. Prescriptions: Indomethacin 50 mg PO BID #30 capsule Methylprednisolone [Medrol Dosepack (4 mg/Tab) 21 Tab/Dosepak] 4 mg PO ASDIR PRN #[id number] PRN Reason: Referrals: NIRALI SERRANO MD [ACTIVE STAFF] - Follow up as needed
== END 2019-05-25 10:01 | disposition home or self-care (01) ==
LOC: ER 09:07
DX: M10.9 Gout, unspecified (principal); M79.644 Pain in right finger(s); M79.671 Pain in right foot; I50.9 Heart failure, unspecified; I11.0 Hypertensive heart disease with heart failure; J44.9 Chronic obstructive pulmonary disease, unspecified; Z99.81 Dependence on supplemental oxygen; E11.9 Type 2 diabetes mellitus without complications
CPT/HCPCS: 99283; 96374; A9270 ×2; J1100

== ENCOUNTER → 2019-06-15 | Outpatient (CLI) | payer MEDICARE, OTHER ==
[2019-06-15 09:21] LABS: ALBUMIN 4.1 g/dL (3.5-5.0); ALKALINE PHOSPHATASE 84 U/L (38-126); ASPARTATE AMINO TRANSFERASE 26 U/L (17-59); BILIRUBIN,DIRECT 0.1 mg/dL (0.0-0.4); BILIRUBIN,TOTAL 0.4 mg/dL (0.2-1.3); CHOLESTEROL 280.99 mg/dL (0-200); TOTAL PROTEIN 7.1 g/dL (6.3-8.2); TRIGLYCERIDES 416 mg/dL (<150)
[2019-06-15 09:32] LABS: DIRECT LDL 126 mg/dL (<100)
== END ==
LOC: OD 08:17
PROVIDERS: ATTEND Specialist
DX: I13.0 Hypertensive heart and chronic kidney disease with heart failure and stage 1 through stage 4 chronic kidney disease, or unspecified chronic kidney disease (principal); I50.22 Chronic systolic (congestive) heart failure; N18.3 Chronic kidney disease, stage 3 (moderate); E08.22 Diabetes mellitus due to underlying condition with diabetic chronic kidney disease; I42.0 Dilated cardiomyopathy; I47.1 Supraventricular tachycardia; E78.49 Other hyperlipidemia; I34.0 Nonrheumatic mitral (valve) insufficiency; I48.0 Paroxysmal atrial fibrillation; G47.30 Sleep apnea, unspecified; R06.00 Dyspnea, unspecified; R60.9 Edema, unspecified; Z79.899 Other long term (current) drug therapy
CPT/HCPCS: 36415; 80061; 80076; 83036

== ENCOUNTER → 2019-07-13 | Outpatient (CLI) | payer MEDICARE, OTHER ==
[2019-07-13 09:01] LABS: HEMATOCRIT 33.6 % (37.9-51.0); HEMOGLOBIN 10.6 g/dL (13.5-17.0); MEAN CORPUSCULAR HEMOGLOBIN 23.6 pg (27.0-33.4); MEAN CORPUSCULAR HGB CONC 31.4 g/dL (32.0-36.0); MEAN CORPUSCULAR VOLUME 75 fl (80-97); PLATELET COUNT 139 10^3/uL (150-450); RED BLOOD COUNT 4.47 10^6/uL (4.35-5.55); RED CELL DISTRIBUTION WIDTH 16.1 % (11.5-14.0); WHITE BLOOD COUNT 6.6 10^3/uL (4.0-10.5)
[2019-07-13 09:22] LABS: ALBUMIN 4.2 g/dL (3.5-5.0); ALKALINE PHOSPHATASE 81 U/L (38-126); ANION GAP 10 (5-19); ASPARTATE AMINO TRANSFERASE 20 U/L (17-59); BILIRUBIN,DIRECT 0.1 mg/dL (0.0-0.4); BILIRUBIN,TOTAL 0.4 mg/dL (0.2-1.3); BLOOD UREA NITROGEN 43 mg/dL (7-20); CALCIUM 9.7 mg/dL (8.4-10.2); CARBON DIOXIDE 30 mmol/L (22-30); CHLORIDE 100 mmol/L (98-107); CHOLESTEROL 289.06 mg/dL (0-200); GLUCOSE 152 mg/dL (75-110); POTASSIUM 4.2 mmol/L (3.6-5.0); TOTAL PROTEIN 7.3 g/dL (6.3-8.2); TRIGLYCERIDES 366 mg/dL (<150); URIC ACID 10.9 mg/dL (3.5-8.5)
[2019-07-13 09:36] LABS: DIRECT LDL 144 mg/dL (<100)
[2019-07-13 09:37] LABS: VLDL CHOLESTEROL 73.2 mg/dL (10-31)
== END ==
LOC: OD 07:51
PROVIDERS: ATTEND Family Medicine
DX: E11.9 Type 2 diabetes mellitus without complications (principal); M10.9 Gout, unspecified; I10 Essential (primary) hypertension
CPT/HCPCS: 36415; 80053; 80061; 84550; 85027

== ENCOUNTER 2019-09-09 09:32 | Emergency (ER) | payer MEDICARE, OTHER ==
--- NOTE | 2019-09-09 10:44 | ER Document Report ---
ED Medical Screen (RME) - General Chief Complaint: Numbness Stated Complaint: HAND NUMBNESS Time Seen by Provider: 09/09/19 10:33 Primary Care Provider: RUFINA LOWRY MD [Primary Care Provider] - Follow up as needed Notes: Very pleasant 68-year-old male with hypertension, insulin-dependent diabetes mellitus, and questionable diabetic neuropathy presents to the emergency department with numbness and tingling in his right arm for the past 1 week that got acutely worse this morning. Patient went to Dr. Dutton's office, he was not there, come to the emergency department. Patient denies any shortness of breath , chest pain, dyspnea on exertion, diaphoresis, nausea or vomiting. Exam: Well-appearing no acute distress, negative Tinel sign, 5/5 pump tester strength in right hand, can make the okay sign and thumbs up and right hand. I have greeted and performed a rapid initial assessment of this patient. A comprehensive ED assessment and evaluation of the patient, analysis of test results and completion of medical decision making process will be conducted by an additional ED providers. TRAVEL OUTSIDE OF THE [place] IN LAST 30 DAYS: No - Related Data Allergies/Adverse Reactions: promethazine [From Phenergan] Adverse Reaction (Intermediate, Verified 09/09/19 10:32) Dystonia Past Medical History - Social History Chew tobacco use (# tins/day): No Frequency of alcohol use: None Drug Abuse: None - Past Medical History Cardiac Medical History: Reports: Hx Atrial Fibrillation - Paroxysmal, Hx Congestive Heart Failure - Systolic; ejection fraction 2017 of approximately 20%., Hx Coronary Artery Disease, Hx Heart Attack - [place] December 2016, Hx Hypercholesterolemia, Hx Hypertension Denies: Hx DVT, Hx Pulmonary Embolism Pulmonary Medical History: Reports: Hx Bronchitis, Hx COPD - Nightly and as needed 2 L oxygen per nasal cannula, Hx Sleep Apnea - Nasal CPAP; pressure 10 Denies: Hx Asthma Neurological Medical History: Denies: Hx Seizures Endocrine Medical History: Reports: Hx Diabetes Mellitus Type 2. Denies: Hx Diabetes Mellitus Type 1, Hx Hyperthyroidism, Hx Hypothyroidism Renal/ Medical History: Reports: Hx Renal Insufficiency. Denies: Hx Peritoneal Dialysis GI Medical History: Reports: Hx Gastroesophageal Reflux Disease, Hx Colonoscopy, Hx Endoscopy. Denies: Hx Cirrhosis Musculoskeltal Medical History: Reports Hx Arthritis - gout, Reports Hx Gout - Primarily affecting left ankle and foot, Reports Hx Musculoskeletal Deformity - Back pain for 4-5 years Psychiatric Medical History: Denies: Hx Depression Infectious Medical History: Denies: Hx C-Diff, Hx MRSA Past Surgical History: Reports: Hx Cardiac Surgery - DEFIB, pt states no. states it was portable, Hx Orthopedic Surgery - right rotator cuff. Denies: Hx Pacemaker - Immunizations Hx Diphtheria, Pertussis, Tetanus Vaccination: Yes Physical Exam - Vital signs Vitals: Temp Pulse Resp BP Pulse Ox 98.0 F 70 18 121/63 99 09/09/19 09:47 09/09/19 09:47 09/09/19 09:47 09/09/19 09:47 09/09/19 09:47 Course - Vital Signs Vital signs: Temp Pulse Resp BP Pulse Ox 98.0 F 70 18 121/63 99 09/09/19 09:47 09/09/19 09:47 09/09/19 09:47 09/09/19 09:47 09/09/19 09:47 Doctor's Discharge - Discharge Referrals: RUFINA LOWRY MD [Primary Care Provider] - Follow up as needed
[2019-09-09 11:29] LABS: ABSOLUTE BASOPHILS # (AUTO) 0.1 10^3/uL (0.0-0.2); ABSOLUTE EOSINOPHILS # (AUTO) 0.1 10^3/uL (0.0-0.6); ABSOLUTE LYMPHOCYTES (AUTO) 1.5 10^3/uL (0.5-4.7); ABSOLUTE MONOCYTES (AUTO) 0.6 10^3/uL (0.1-1.4); ABSOLUTE NEUT (AUTO) 4.3 10^3/uL (1.7-8.2); EOSINOPHILS % (AUTO) 1.7 % (0-6); HEMATOCRIT 33.9 % (37.9-51.0); HEMOGLOBIN 10.8 g/dL (13.5-17.0); LYMPHOCYTES % (AUTO) 22.4 % (13-45); MEAN CORPUSCULAR HEMOGLOBIN 23.7 pg (27.0-33.4); MEAN CORPUSCULAR HGB CONC 31.9 g/dL (32.0-36.0); MEAN CORPUSCULAR VOLUME 74 fl (80-97); MONOCYTES % (AUTO) 8.9 % (3-13); PLATELET COUNT 155 10^3/uL (150-450); RED BLOOD COUNT 4.56 10^6/uL (4.35-5.55); TOTAL CELLS COUNTED % (AUTO) 100 %; WHITE BLOOD COUNT 6.5 10^3/uL (4.0-10.5)
[2019-09-09 11:53] LABS: ALKALINE PHOSPHATASE 81 U/L (38-126); ANION GAP 6 (5-19); ASPARTATE AMINO TRANSFERASE 27 U/L (17-59); BILIRUBIN,DIRECT 0.2 mg/dL (0.0-0.4); BILIRUBIN,TOTAL 0.6 mg/dL (0.2-1.3); BLOOD UREA NITROGEN 30 mg/dL (7-20); CALCIUM 9.9 mg/dL (8.4-10.2); CARBON DIOXIDE 32 mmol/L (22-30); CHLORIDE 102 mmol/L (98-107); GLUCOSE 187 mg/dL (75-110); POTASSIUM 4.3 mmol/L (3.6-5.0); TOTAL PROTEIN 7.2 g/dL (6.3-8.2)
--- NOTE | 2019-09-09 11:55 | RADIOLOGY REPORT (SQ) ---
EXAM DESCRIPTION: CHEST 2 VIEWS COMPLETED DATE/TIME: 09/09/2019 11:29 am REASON FOR STUDY: arm parasthesia, ?cardiac COMPARISON: 04/20/2019 EXAM PARAMETERS: NUMBER OF VIEWS: two views TECHNIQUE: Digital Frontal and Lateral radiographic views of the chest acquired. RADIATION DOSE: NA LIMITATIONS: none FINDINGS: LUNGS AND PLEURA: No opacities, masses or pneumothorax. No pleural effusion. MEDIASTINUM AND HILAR STRUCTURES: No masses or contour abnormalities. HEART AND VASCULAR STRUCTURES: Heart normal size. No evidence for failure. BONES: No acute findings. HARDWARE: None in the chest. OTHER: No other significant finding. IMPRESSION: NO ACUTE RADIOGRAPHIC FINDING IN THE CHEST. TECHNICAL DOCUMENTATION: JOB ID: [id number] [employer]- All Rights Reserved Reading location - IP/workstation name: [email or web address]
[2019-09-09] MEDS ORDERED: ACETAMINOPHEN 325 MG TABLET PO ONE (13:21)
--- NOTE | 2019-09-09 13:32 | ER Document Report ---
ED General - General Chief Complaint: Numbness of Arm Stated Complaint: HAND NUMBNESS Time Seen by Provider: 09/09/19 10:33 Primary Care Provider: RUFINA LOWRY MD [Primary Care Provider] - Follow up as needed Mode of Arrival: Ambulatory Information source: Patient Notes: Mr. Fox is a 68-year-old male complains of right upper extremity numbness tingling in his thumb index and middle finger. Denies any trauma. States that his numbness and discomfort radiates up to his elbow and has been lasting for 1 week. Patient has a history of diabetes mellitus and thinks it is due to a diabetic neuropathy. Patient also has gout in many joints of his body and also he is entertaining whether or not is a gout flareup. There is no fever or chills swelling or red streaks going up his arm. TRAVEL OUTSIDE OF THE [place] IN LAST 30 DAYS: No - HPI Onset: Last week Onset/Duration: Gradual, Persistent Severity: Moderate Pain Level: 3 Associated symptoms: None Exacerbated by: Other - There are no activities that exacerbate this problem. Relieved by: Other - There are no activities that relieve this problem and patient does not take steroids due to diabetic glucose control and he does not take nonsteroidal anti-inflammatory agents due to his renal insufficiency. Similar symptoms previously: No Recently seen / treated by doctor: No - Related Data Allergies/Adverse Reactions: promethazine [From Phenergan] Adverse Reaction (Intermediate, Verified 09/09/19 10:32) Dystonia Past Medical History - Social History Smoking Status: Never Smoker Chew tobacco use (# tins/day): No Frequency of alcohol use: None Drug Abuse: None Lives with: Family Family History: Reviewed & Not Pertinent, DM, Hypertension Patient has suicidal ideation: No Patient has homicidal ideation: No - Past Medical History Cardiac Medical History: Reports: Hx Atrial Fibrillation - Paroxysmal, Hx Congestive Heart Failure - Systolic; ejection fraction 2017 of approximately 20%., Hx Coronary Artery Disease, Hx Heart Attack - [place] December 2016, Hx Hypercholesterolemia, Hx Hypertension Denies: Hx DVT, Hx Pulmonary Embolism Pulmonary Medical History: Reports: Hx Bronchitis, Hx COPD - Nightly and as needed 2 L oxygen per nasal cannula, Hx Sleep Apnea - Nasal CPAP; pressure 10 Denies: Hx Asthma Neurological Medical History: Denies: Hx Seizures Endocrine Medical History: Reports: Hx Diabetes Mellitus Type 2. Denies: Hx Diabetes Mellitus Type 1, Hx Hyperthyroidism, Hx Hypothyroidism Renal/ Medical History: Reports: Hx Renal Insufficiency. Denies: Hx Peritoneal Dialysis GI Medical History: Reports: Hx Gastroesophageal Reflux Disease, Hx Colonoscopy, Hx Endoscopy. Denies: Hx Cirrhosis Musculoskeletal Medical History: Reports Hx Arthritis - gout, Reports Hx Gout - Primarily affecting left ankle and foot, Reports Hx Musculoskeletal Deformity - Back pain for 4-5 years Psychiatric Medical History: Denies: Hx Depression Infectious Medical History: Denies: Hx C-Diff, Hx MRSA Past Surgical History: Reports: Hx Cardiac Surgery - DEFIB, pt states no. states it was portable, Hx Orthopedic Surgery - right rotator cuff. Denies: Hx Pacemaker - Immunizations Hx Diphtheria, Pertussis, Tetanus Vaccination: Yes Hx Pneumococcal Vaccination: 11/05/13 Review of Systems - Review of Systems Musculoskeletal: See HPI Physical Exam - Vital signs Vitals: Temp Pulse Resp BP Pulse Ox 98.0 F 70 18 121/63 99 09/09/19 09:47 09/09/19 09:47 09/09/19 09:47 09/09/19 09:47 09/09/19 09:47 Interpretation: Normal - General General appearance: Appears well, Alert - HEENT Head: Normocephalic, Atraumatic Eyes: Normal Pupils: PERRL - Respiratory Respiratory status: No respiratory distress Chest status: Nontender Breath sounds: Normal Chest palpation: Normal - Cardiovascular Rhythm: Regular Heart sounds: Normal auscultation Murmur: No - Abdominal Inspection: Normal Distension: No distension Bowel sounds: Normal Tenderness: Nontender Organomegaly: No organomegaly - Back Back: Normal, Nontender - Extremities General upper extremity: Normal inspection, Nontender, Normal color, Normal ROM, Normal temperature General lower extremity: Normal inspection, Nontender, Normal color, Normal ROM, Normal temperature, Normal weight bearing. No: Susan's sign Hand: Other - Numbness in his right hand digits 1 ,2, and 3. Full strength full range of motion of all digits cap refill within normal limits wrist pulses 2+ equal intact there is no swelling no erythema no deformities and no joint swelling. - Neurological Neuro grossly intact: Yes Cognition: Normal Orientation: AAOx4 Sutton Coma Scale Eye Opening: Spontaneous Elen Coma Scale Verbal: Oriented Elen Coma Scale Motor: Obeys Commands Sutton Coma Scale Total: 15 Speech: Normal Motor strength normal: LUE, RUE, LLE, RLE Sensory: Normal - Psychological Associated symptoms: Normal affect, Normal mood - Skin Skin Temperature: Warm Skin Moisture: Dry Skin Color: Normal Course - Re-evaluation Re-evalutation: 09/09/19 16:06 Discuss results of studies including CT scan of head and CT neck. Patient has an incidental finding of her parietal subarachnoid cyst. Otherwise no evident evidence for any acute process and no stroke signs seen. CT scan of neck C- spine showed some degenerative disc joint disease and symptoms right sided cervical lymphadenopathy. Radiologist recommended that further work-up may be warranted on the cervical lymphadenopathy to determine to what extent there is right sided lymphadenopathy. - Vital Signs Vital signs: Temp Pulse Resp BP Pulse Ox 97.9 F 72 13 130/74 H 97 09/09/19 14:23 09/09/19 12:06 09/09/19 14:01 09/09/19 14:01 09/09/19 14:01 - Laboratory Result Diagrams: 09/09/19 11:00 09/09/19 11:00 Laboratory results interpreted by me: 09/09/19 09/09/19 11:00 11:00 Hgb 10.8 L Hct 33.9 L MCV 74 L MCH 23.7 L MCHC 31.9 L RDW 15.0 H Carbon Dioxide 32 H BUN 30 H Creatinine 1.98 H Est GFR ( Amer) 41 L Est GFR (MDRD) Non-Af 34 L Glucose 187 H - Diagnostic Test Radiology reviewed: Image reviewed, Reports reviewed - EKG Interpretation by Me Additional EKG results interpreted by me: 09/09/19 16:05 EKG done 1047 shows normal sinus rhythm left anterior fascicular block borderline R wave progression and nonspecific ST-T wave changes. There is no change in EKG from 04/20/2019 Discharge - Discharge Clinical Impression: Diabetes mellitus type 2 in nonobese Peripheral neuropathy Qualifiers: Peripheral neuropathy type: idiopathic neuropathy, unspecified Qualified Code(s): G60.9 - Hereditary and idiopathic neuropathy, unspecified Acute renal failure superimposed on stage 3 chronic kidney disease Qualifiers: Acute renal failure type: unspecified Qualified Code(s): N17.9 - Acute kidney failure, unspecified; N18.3 - Chronic kidney disease, stage 3 (moderate) Condition: Stable Disposition: HOME, SELF-CARE Additional Instructions: Neuropathy Your symptoms are due to neuropathy. Neuropathy is nerve damage. There are many causes, including diabetes, immune disease, alcohol, blood vessel disease, and vitamin deficiency. The usual symptoms are pain and numbness. Neuropathy can occur anywhere, but it's most likely in the "longest" nerves. That's why the feet are most often affected. Sometimes the nerve damage can heal. But if the symptoms have lasted more than a few months, the damage is permanent. To avoid further damage, treat your underlying health problems carefully. If you have diabetes, keep the blood sugar as normal as possible. Avoid alcohol. Treat high blood pressure and high cholesterol. Treating chronic pain can be a problem. Obviously, you don't want to bec ome addicted to pain medicine. Work closely with your doctor on pain management. Your options include antiinflammatory medicine, anti seizure medicine, antidepressants, and pain clinic management. Contact the doctor if there is a significant change. Advised patient to continue his usual medications that he takes. Inasmuch as he realizes steroids increases his blood sugar he is reluctant to restart any prednisone. Also patient cannot take any nonsteroidal anti-inflammatory drugs because he has chronic renal failure. Referrals: RUFINA LOWRY MD [Primary Care Provider] - Follow up as needed
--- NOTE | 2019-09-09 14:29 | RADIOLOGY REPORT (SQ) ---
EXAM DESCRIPTION: CT HEAD WITHOUT COMPLETED DATE/TIME: 09/09/2019 2:15 pm REASON FOR STUDY: right upper ext sensory loss COMPARISON: 01/15/2018 TECHNIQUE: Axial images acquired through the brain without intravenous contrast. Images reviewed wi th bone, brain and subdural windows. Additional sagittal and coronal reconstructions were generated. Images stored on PACS. All CT scanners at this facility use dose modulation, iterative reconstruction, and/or weight based d osing when appropriate to reduce radiation dose to as low as reasonably achievable (ALARA). [facility]: Dose Right [facility]: CareDose [facility]: Dose Right [facility]: Teradose 4D [facility]: [employer] RADIATION DOSE: CT Rad equipment meets quality standard of care and radiation dose reduction techniq ues were employed. CTDIvol: 53.2 mGy. DLP: 1044 mGy-cm. mGy. LIMITATIONS: None. FINDINGS: VENTRICLES: Normal size and contour. CEREBRUM: Stable CSF attenuation lesion along the left paramedian parietooccipital lobes with associa carolyn mass effect measuring approximately 7.0 x 5.8 x 5.7 cm and compatible with an arachnoid cyst. No other masses. No hemorrhage. No midline shift. No evidence for acute infarction. Normal reilly/whit e matter differentiation. No areas of low density in the white matter. CEREBELLUM: No masses. No hemorrhage. No alteration of density. No evidence for acute infarction. EXTRAAXIAL SPACES: Arachnoid cyst as above. No hemorrhage. ORBITS AND GLOBE: No intra- or extraconal masses. Normal contour of globe without masses. CALVARIUM: No fracture. PARANASAL SINUSES: No fluid or mucosal thickening. SOFT TISSUES: No mass or hematoma. OTHER: No other significant finding. IMPRESSION: 1. No evidence of acute intracranial process. 2. Stable large left parietooccipital arachnoid cyst. EVIDENCE OF ACUTE STROKE: NO. COMMENT: Quality ID # [id number]: Final reports with documentation of one or more dose reduction techniques (e.g., Automated exposure control, adjustment of the mA and/or kV according to patient size, use of iterative reconstruction technique) TECHNICAL DOCUMENTATION: JOB ID: [id number] [employer]- All Rights Reserved Reading location - IP/workstation name: [email or web address]
--- NOTE | 2019-09-09 14:35 | RADIOLOGY REPORT (SQ) ---
EXAM DESCRIPTION: CT CERVICAL SPINE WITHOUT COMPLETED DATE/TIME: 09/09/2019 2:15 pm REASON FOR STUDY: right upper ext sensory loss COMPARISON: None. TECHNIQUE: Axial images acquired through the cervical spine without intravenous contrast. Images re viewed with lung, soft tissue and bone windows. Reconstructed coronal and sagittal MPR images review ed. Images stored on PACS. All CT scanners at this facility use dose modulation, iterative reconstruction, and/or weight based d osing when appropriate to reduce radiation dose to as low as reasonably achievable (ALARA). [facility]: Dose Right [facility]: CareDose [facility]: Dose Right [facility]: Teradose 4D [facility]: [employer] RADIATION DOSE: CT Rad equipment meets quality standard of care and radiation dose reduction techniq ues were employed. CTDIvol: 19.6 mGy. DLP: 365 mGy-cm. mGy. LIMITATIONS: None. FINDINGS: ALIGNMENT: Straightening of the normal cervical lordosis, likely positional. MINERALIZATION: Normal. VERTEBRAL BODIES: No fractures or dislocation. DISCS: Mild disc height loss greatest at C7-T1 and T1-T2. Mild anterior osteophytes. No significant bulky osteophytes. FACETS, LATERAL MASSES, POSTERIOR ELEMENTS: No fracture dislocation. Multilevel facet arthropathy. HARDWARE: None in the spine. VISUALIZED RIBS: No fractures. LUNG APICES AND SOFT TISSUES: Enlarged right level 2 cervical lymph nodes, largest measuring 19 mm in short axis (series 3, image 25). OTHER: No other significant finding. IMPRESSION: 1. Right cervical lymphadenopathy of which further workup is warranted. Largest level 2 node measures 19 mm in short axis. 2. Mild degenerative changes of the cervical spine without evidence of acute bony abnormality. TECHNICAL DOCUMENTATION: JOB ID: [id number] Quality ID # [id number]: Final reports with documentation of one or more dose reduction techniques (e.g., Au tomated exposure control, adjustment of the mA and/or kV according to patient size, use of iterative reconstruction technique) 2010 [employer]- All Rights Reserved Reading location - IP/workstation name: [email or web address]
[2019-09-09 16:32] VITALS: BP 136/87
--- NOTE | 2019-09-09 19:49 | EKG REPORT ---
SEVERITY:- ABNORMAL ECG - SINUS RHYTHM LEFT ANTERIOR FASCICULAR BLOCK BORDERLINE R WAVE PROGRESSION, ANTERIOR LEADS NONSPECIFIC T ABNORMALITIES, LATERAL LEADS : Confirmed by: Alfie López MD 09-Sep-2019 19:48:38
== END 2019-09-09 16:34 | disposition home or self-care (01) ==
LOC: ER 09:32
DX: I13.0 Hypertensive heart and chronic kidney disease with heart failure and stage 1 through stage 4 chronic kidney disease, or unspecified chronic kidney disease (principal); E11.22 Type 2 diabetes mellitus with diabetic chronic kidney disease; N17.9 Acute kidney failure, unspecified; N18.3 Chronic kidney disease, stage 3 (moderate); I50.9 Heart failure, unspecified; G60.9 Hereditary and idiopathic neuropathy, unspecified; J44.9 Chronic obstructive pulmonary disease, unspecified; R20.0 Anesthesia of skin; E11.9 Type 2 diabetes mellitus without complications; I48.91 Unspecified atrial fibrillation; I25.10 Atherosclerotic heart disease of native coronary artery without angina pectoris; I25.2 Old myocardial infarction
CPT/HCPCS: 93005; 99284; 36415; 83735; 85025; 80053; 84484; 71046; 70450; 72125; 93010; A9270

== ENCOUNTER → 2019-09-12 | Outpatient (CLI) | payer MEDICARE, OTHER ==
[2019-09-12 09:09] LABS: ABSOLUTE BASOPHILS # (AUTO) 0.1 10^3/uL (0.0-0.2); ABSOLUTE EOSINOPHILS # (AUTO) 0.1 10^3/uL (0.0-0.6); ABSOLUTE LYMPHOCYTES (AUTO) 1.9 10^3/uL (0.5-4.7); ABSOLUTE MONOCYTES (AUTO) 0.5 10^3/uL (0.1-1.4); ABSOLUTE NEUT (AUTO) 3.2 10^3/uL (1.7-8.2); BASOPHILS % (AUTO) 1.5 % (0-2); EOSINOPHILS % (AUTO) 1.9 % (0-6); HEMATOCRIT 34.4 % (37.9-51.0); HEMOGLOBIN 10.9 g/dL (13.5-17.0); LYMPHOCYTES % (AUTO) 32.5 % (13-45); MEAN CORPUSCULAR HEMOGLOBIN 23.6 pg (27.0-33.4); MEAN CORPUSCULAR HGB CONC 31.8 g/dL (32.0-36.0); MEAN CORPUSCULAR VOLUME 74 fl (80-97); MONOCYTES % (AUTO) 8.8 % (3-13); PLATELET COUNT 160 10^3/uL (150-450); RED BLOOD COUNT 4.63 10^6/uL (4.35-5.55); RED CELL DISTRIBUTION WIDTH 14.9 % (11.5-14.0); SEGMENTED NEUTROPHILS % (AUTO) 55.3 % (42-78); TOTAL CELLS COUNTED % (AUTO) 100 %; WHITE BLOOD COUNT 5.9 10^3/uL (4.0-10.5)
[2019-09-12 10:13] LABS: ANION GAP 7 (5-19); BLOOD UREA NITROGEN 29 mg/dL (7-20); CALCIUM 9.4 mg/dL (8.4-10.2); CARBON DIOXIDE 30 mmol/L (22-30); CHLORIDE 103 mmol/L (98-107); GLUCOSE 139 mg/dL (75-110); POTASSIUM 3.8 mmol/L (3.6-5.0)
[2019-09-13 13:37] LABS: CREATININE URINE 162.2 mg/dL (Not Estab.)
== END ==
LOC: OD 08:17
PROVIDERS: ATTEND Internal Medicine Nephrology
DX: I12.9 Hypertensive chronic kidney disease with stage 1 through stage 4 chronic kidney disease, or unspecified chronic kidney disease (principal); N18.3 Chronic kidney disease, stage 3 (moderate); E11.22 Type 2 diabetes mellitus with diabetic chronic kidney disease; N25.81 Secondary hyperparathyroidism of renal origin
CPT/HCPCS: 36415; 80048; 82043; 82570; 83970; 85025

== ENCOUNTER 2019-09-23 09:04 | Emergency (ER) | payer MEDICARE, OTHER ==
[2019-09-23 09:10] VITALS: BP 119/74
--- NOTE | 2019-09-23 09:32 | ER Document Report ---
HPI - HPI Time Seen by Provider: 09/23/19 09:28 Pain Level: 1 Notes: Patient is a 69-year-old male with a history of insulin-dependent diabetes, hypertension, gout who presents complaining of left ankle pain that began this morning without precipitating event or injury. Patient states that he is noticed a little bit of swelling to the ankle, and that the pain resembles his gout pain. Patient states that he was at his doctor's office today, but did not want to wait any longer so he came here for evaluation. Patient states that he does have medicine for his gouty attacks at home, but wanted to make sure that it was gout before starting the medicine. He has not noticed any redness otherwise. He is able to eat and drink without difficulty. He is urinating normally. He does take Eliquis daily as well. Denies any headache, fever, neck pain, URI, sore throat, chest pain, palpitations, syncope, cough, shortness of breath, wheeze, dyspnea, abdominal pain, nausea/vomiting/diarrhea, urinary retention, dysuria, hematuria, loss of control of bowel or bladder, saddle anesthesia, muscle paralysis/weakness, or rash. - ROS Systems Reviewed and Negative: Yes All other systems reviewed and negative Past Medical History - Social History Smoking Status: Never Smoker Family History: Reviewed & Not Pertinent, DM, Hypertension Patient has suicidal ideation: No Patient has homicidal ideation: No - Past Medical History Cardiac Medical History: Reports: Hx Atrial Fibrillation - Paroxysmal, Hx Congestive Heart Failure - Systolic; ejection fraction 2017 of approximately 20%., Hx Coronary Artery Disease, Hx Heart Attack - [place] December 2016, Hx Hype rcholesterolemia, Hx Hypertension Denies: Hx DVT, Hx Pulmonary Embolism Pulmonary Medical History: Reports: Hx Bronchitis, Hx COPD - Nightly and as needed 2 L oxygen per nasal cannula, Hx Sleep Apnea - Nasal CPAP; pressure 10 Denies: Hx Asthma Neurological Medical History: Denies: Hx Seizures Endocrine Medical History: Reports: Hx Diabetes Mellitus Type 2. Denies: Hx Diabetes Mellitus Type 1, Hx Hyperthyroidism, Hx Hypothyroidism Renal/ Medical History: Reports: Hx Renal Insufficiency. Denies: Hx Peritoneal Dialysis GI Medical History: Reports: Hx Gastroesophageal Reflux Disease, Hx Colonoscopy, Hx Endoscopy. Denies: Hx Cirrhosis Musculoskeletal Medical History: Reports Hx Arthritis - gout, Reports Hx Gout - Primarily affecting left ankle and foot, Reports Hx Musculoskeletal Deformity - Back pain for 4-5 years Psychiatric Medical History: Denies: Hx Depression Infectious Medical History: Denies: Hx C-Diff, Hx MRSA Past Surgical History: Reports: Hx Cardiac Surgery - DEFIB, pt states no. states it was portable, Hx Orthopedic Surgery - right rotator cuff. Denies: Hx Pacemaker - Immunizations Hx Diphtheria, Pertussis, Tetanus Vaccination: Yes Hx Pneumococcal Vaccination: 11/05/13 Vertical Provider Document - CONSTITUTIONAL Agree With Documented VS: Yes Notes: PHYSICAL EXAMINATION: GENERAL: Well-appearing, well-nourished and in no acute distress. LUNGS: Breath sounds clear to auscultation bilaterally and equal. No wheezes rales or rhonchi. HEART: Regular rate and rhythm without murmurs, rubs, gallops. Musculoskeletal: Lt foot/ankle: + mild lateral ankle swelling. No ecchymosis or deformity. FROM to passive/active but does note discomfort with dorsiflexion at the ankle. Strength 5+/5. N/V intact distal. + tenderness to the posterior lateral malleolus. No bony tenderness of the ankle/foot. Achilles intact. Lis Franc maneuver neg. Anterior drawer neg. Extremities: No cyanosis, clubbing, or edema b/l. Peripheral pulses 2+. Capillary refill less than 3 seconds. NEUROLOGICAL: Normal speech, normal gait. Normal sensory, motor exams PSYCH: Normal mood, normal affect. SKIN: Warm, Dry, normal turgor, no rashes or lesions noted. - INFECTION CONTROL TRAVEL OUTSIDE OF THE [place] IN LAST 30 DAYS: No Course - Re-evaluation Re-evalutation: 09/23/19 09:31 Patient is an afebrile, well-hydrated, 69-year-old male who presents to the ED with left ankle pain which I suspect to be gout based on his H&P today. Vitals are acceptable without any significant tachycardia, tachypnea, or hypoxia. PE is otherwise unremarkable for any neurovascular compromise, obvious tendon/ligament rupture, obvious fracture/dislocation, septic joint. Patient is nontoxic-appearing. Patient is able to ambulate and weight-bear. No other labs or imaging warranted at this time based on H&P. Patient has medicine at home to take for acute gouty attacks which he will begin today. Conservative measures otherwise for symptoms. Recheck with your PCM in 3-5 days. Consider consult orthopedics. Return to the ED with any worsening/concerning symptoms otherwise as reviewed in discharge. Patient is in agreement. - Vital Signs Vital signs: Temp Pulse Resp BP Pulse Ox 97.7 F 89 18 119/74 98 09/23/19 09:09 09/23/19 09:09 09/23/19 09:09 09/23/19 09:09 09/23/19 09:09 Discharge - Discharge Clinical Impression: Left ankle pain Qualifiers: Chronicity: acute Qualified Code(s): M25.572 - Pain in left ankle and joints of left foot Condition: Stable Disposition: HOME, SELF-CARE Additional Instructions: Rest, Ice, Compression, Elevation Tylenol/ibuprofen as needed Light stretches daily Strength exercises as able Moist heat and massage may help F/u with your PCP in 3-5 days for a recheck Consider consult(s) with Orthopedics/physical therapy for ongoing/worsening symptoms Return to the ED with any worsening symptoms and/or development of fever, headache, chest pain, palpitations, syncope, shortness of breath, trouble breathing, abdominal pain, n/v/d, muscle weakness/paralysis, numbness/tingling, swelling, redness, or other worsening symptoms that are concerning to you. Referrals: NIRALI SERRANO MD [Primary Care Provider] - Follow up as needed [facility] [Provider Group] - Follow up as needed
== END 2019-09-23 09:29 | disposition home or self-care (01) ==
LOC: ER 09:04
DX: M25.572 Pain in left ankle and joints of left foot (principal); E11.9 Type 2 diabetes mellitus without complications; Z79.4 Long term (current) use of insulin; Z79.01 Long term (current) use of anticoagulants; I48.91 Unspecified atrial fibrillation; I50.9 Heart failure, unspecified; I25.10 Atherosclerotic heart disease of native coronary artery without angina pectoris; I25.2 Old myocardial infarction; I11.0 Hypertensive heart disease with heart failure; J44.9 Chronic obstructive pulmonary disease, unspecified; Z99.81 Dependence on supplemental oxygen
CPT/HCPCS: 99283

== ENCOUNTER 2019-10-31 08:35 | Emergency (ER) | payer MEDICARE, OTHER ==
--- NOTE | 2019-10-31 09:12 | ER Document Report ---
ED Medical Screen (RME) - General Chief Complaint: Hand Pain Stated Complaint: HAND NUMBNESS/TINGLING Time Seen by Provider: 10/31/19 09:08 Primary Care Provider: RUFINA LOWRY MD [Primary Care Provider] - Follow up as needed TRAVEL OUTSIDE OF THE [place] IN LAST 30 DAYS: No - HPI Notes: 10/31/19 09:10 Patient is a 69yo male with h/o insulin-dependent diabetes, hypertension, gout who presents complaining of left hand pain and swelling that began over the weekend without precipitating event or injury. Patient is not sure if this is gout related. He has never had swelling in his hand like this before. Patient states he does have intermittent numbness to the right hand which she was told was neuropathy in the past. No fever, chest pain, shortness of breath. I have treated and performed a rapid initial assessment of this patient. A comprehensive ED assessment and evaluation of the patient, analysis of test results and completion of medical decision making process will be conducted by additional ED providers. PHYSICAL EXAMINATION: GENERAL: Well-appearing, well-nourished and in no acute distress. A&Ox4. Answers questions appropriately. Left hand: There is mild swelling and warmth to the left second MCP joint area. N/V intact distal. - Related Data Allergies/Adverse Reactions: promethazine [From Phenergan] Adverse Reaction (Intermediate, Verified 09/23/19 09:22) Dystonia Past Medical History - Social History Frequency of alcohol use: None Drug Abuse: None - Past Medical History Cardiac Medical History: Reports: Hx Atrial Fibrillation - Paroxysmal, Hx Congestive Heart Failure - Systolic; ejection fraction 2017 of approximately 20%., Hx Coronary Artery Disease, Hx Heart Attack - [place] December 2016, Hx Hypercholesterolemia, Hx Hypertension Denies: Hx DVT, Hx Pulmonary Embolism Pulmonary Medical History: Reports: Hx Bronchitis, Hx COPD - Nightly and as needed 2 L oxygen per nasal cannula, Hx Sleep Apnea - Nasal CPAP; pressure 10 Denies: Hx Asthma Neurological Medical History: Denies: Hx Seizures Endocrine Medical History: Reports: Hx Diabetes Mellitus Type 2. Denies: Hx Diabetes Mellitus Type 1, Hx Hyperthyroidism, Hx Hypothyroidism Renal/ Medical History: Reports: Hx Renal Insufficiency. Denies: Hx Peritoneal Dialysis GI Medical History: Reports: Hx Gastroesophageal Reflux Disease, Hx Colonoscopy, Hx Endoscopy. Denies: Hx Cirrhosis Musculoskeltal Medical History: Reports Hx Arthritis - gout, Reports Hx Gout - Primarily affecting left ankle and foot, Reports Hx Musculoskeletal Deformity - Back pain for 4-5 years Psychiatric Medical History: Denies: Hx Depression Infectious Medical History: Denies: Hx C-Diff, Hx MRSA Past Surgical History: Reports: Hx Cardiac Surgery - DEFIB, pt states no. states it was portable, Hx Orthopedic Surgery - right rotator cuff. Denies: Hx Pacemaker - Immunizations Hx Diphtheria, Pertussis, Tetanus Vaccination: Yes Physical Exam - Vital signs Vitals: Temp Pulse Resp BP Pulse Ox 97.9 F 93 18 118/63 98 10/31/19 08:55 10/31/19 08:55 10/31/19 08:55 10/31/19 08:55 10/31/19 08:55 Course - Vital Signs Vital signs: Temp Pulse Resp BP Pulse Ox 97.9 F 93 18 118/63 98 10/31/19 08:55 10/31/19 08:55 10/31/19 08:55 10/31/19 08:55 10/31/19 08:55 Doctor's Discharge - Discharge Referrals: RUFINA LOWRY MD [Primary Care Provider] - Follow up as needed
[2019-10-31 09:57] LABS: ABSOLUTE BASOPHILS # (AUTO) 0.1 10^3/uL (0.0-0.2); ABSOLUTE EOSINOPHILS # (AUTO) 0.1 10^3/uL (0.0-0.6); ABSOLUTE LYMPHOCYTES (AUTO) 1.5 10^3/uL (0.5-4.7); ABSOLUTE MONOCYTES (AUTO) 0.6 10^3/uL (0.1-1.4); ABSOLUTE NEUT (AUTO) 4.3 10^3/uL (1.7-8.2); BASOPHILS % (AUTO) 0.8 % (0-2); EOSINOPHILS % (AUTO) 0.9 % (0-6); HEMATOCRIT 33.3 % (37.9-51.0); HEMOGLOBIN 10.5 g/dL (13.5-17.0); LYMPHOCYTES % (AUTO) 23.2 % (13-45); MEAN CORPUSCULAR HEMOGLOBIN 23.7 pg (27.0-33.4); MEAN CORPUSCULAR HGB CONC 31.5 g/dL (32.0-36.0); MEAN CORPUSCULAR VOLUME 75 fl (80-97); MONOCYTES % (AUTO) 9.2 % (3-13); PLATELET COUNT 159 10^3/uL (150-450); RED BLOOD COUNT 4.43 10^6/uL (4.35-5.55); SEGMENTED NEUTROPHILS % (AUTO) 65.9 % (42-78); TOTAL CELLS COUNTED % (AUTO) 100 %; WHITE BLOOD COUNT 6.5 10^3/uL (4.0-10.5)
--- NOTE | 2019-10-31 10:17 | RADIOLOGY REPORT (SQ) ---
EXAM DESCRIPTION: HAND LEFT 3 VIEWS COMPLETED DATE/TIME: 10/31/2019 9:44 am REASON FOR STUDY: left hand pain near 2nd mcp joint COMPARISON: None. EXAM PARAMETERS: NUMBER OF VIEWS: Three views. TECHNIQUE: AP, lateral and oblique radiographic images acquired of the left hand. LIMITATIONS: None. FINDINGS: MINERALIZATION: Normal. BONES: No acute fracture or dislocation. JOINTS: Osteoarthrosis of the 1st CMC, 1st MCP, and of several IP joints. There is no periarticular osteopenia or erosion. SOFT TISSUES: No focal soft tissue swelling or radiopaque foreign body. OTHER: No other finding. IMPRESSION: No acute osseous abnormality of the left hand. TECHNICAL DOCUMENTATION: JOB ID: [id number] 2010 [email or web address]- All Rights Reserved Reading location - IP/workstation name: [email or web address]
[2019-10-31] MEDS ORDERED: NORMAL SALINE 500 ML IV ONE (10:20)
[2019-10-31 10:21] LABS: ALBUMIN 3.8 g/dL (3.5-5.0); ALKALINE PHOSPHATASE 75 U/L (38-126); ANION GAP 6 (5-19); ASPARTATE AMINO TRANSFERASE 20 U/L (17-59); BILIRUBIN,TOTAL 0.4 mg/dL (0.2-1.3); BLOOD UREA NITROGEN 33 mg/dL (7-20); CALCIUM 9.5 mg/dL (8.4-10.2); CARBON DIOXIDE 30 mmol/L (22-30); CHLORIDE 103 mmol/L (98-107); GLUCOSE 238 mg/dL (75-110); POTASSIUM 4.1 mmol/L (3.6-5.0); TOTAL PROTEIN 6.8 g/dL (6.3-8.2)
[2019-10-31] MEDS ORDERED: KETOROLAC TROMETHAMINE INJ/PF 30 MG/1 ML SDV IV ONE (10:22)
[2019-10-31] MEDS ORDERED: DEXAMETHASONE SOD PHOS INJ 10 MG/1 ML VIAL IV ONE (10:22)
--- NOTE | 2019-10-31 10:24 | ER Document Report ---
ED General - General Chief Complaint: Hand Pain Stated Complaint: HAND NUMBNESS/TINGLING Time Seen by Provider: 10/31/19 09:08 Primary Care Provider: RUFINA LOWRY MD [Primary Care Provider] - Follow up as needed Notes: 69-year-old man presents to the emergency department with a complaint of left hand pain and swelling. He states that symptoms began yesterday but worsened overnight. He has a history of gout and notes that pain is very sensitive to light touch similar to gout flares in the past. He also complains of some numbness and tingling in his right hand which is been ongoing for the past few years. He notes intermittent episodes of numbness. He denies any other associated neurologic musculoskeletal symptoms at this time. TRAVEL OUTSIDE OF THE [place] IN LAST 30 DAYS: No - Related Data Allergies/Adverse Reactions: promethazine [From Phenergan] Adverse Reaction (Intermediate, Verified 09/23/19 09:22) Dystonia Past Medical History - Social History Smoking Status: Unknown if Ever Smoked Frequency of alcohol use: None Drug Abuse: None Family History: Reviewed & Not Pertinent, DM, Hypertension Patient has suicidal ideation: No Patient has homicidal ideation: No - Past Medical History Cardiac Medical History: Reports: Hx Atrial Fibrillation - Paroxysmal, Hx Congestive Heart Failure - Systolic; ejection fraction 2017 of approximately 20%., Hx Coronary Artery Disease, Hx Heart Attack - [place] December 2016, Hx Hypercholesterolemia, Hx Hypertension Denies: Hx DVT, Hx Pulmonary Embolism Pulmonary Medical History: Reports: Hx Bronchitis, Hx COPD - Nightly and as needed 2 L oxygen per nasal cannula, Hx Sleep Apnea - Nasal CPAP; pressure 10 Denies: Hx Asthma Neurological Medical History: Denies: Hx Seizures Endocrine Medical History: Reports: Hx Diabetes Mellitus Type 2. Denies: Hx Diabetes Mellitus Type 1, Hx Hyperthyroidism, Hx Hypothyroidism Renal/ Medical History: Reports: Hx Renal Insufficiency. Denies: Hx Peritoneal Dialysis GI Medical History: Reports: Hx Gastroesophageal Reflux Disease, Hx Colonoscopy, Hx Endoscopy. Denies: Hx Cirrhosis Musculoskeletal Medical History: Reports Hx Arthritis - gout, Reports Hx Gout - Primarily affecting left ankle and foot, Reports Hx Musculoskeletal Deformity - Back pain for 4-5 years Psychiatric Medical History: Denies: Hx Depression Infectious Medical History: Denies: Hx C-Diff, Hx MRSA Past Surgical History: Reports: Hx Cardiac Surgery - DEFIB, pt states no. states it was portable, Hx Orthopedic Surgery - right rotator cuff. Denies: Hx Pacemaker - Immunizations Hx Diphtheria, Pertussis, Tetanus Vaccination: Yes Hx Pneumococcal Vaccination: 11/05/13 Review of Systems - Review of Systems Notes: Constitutional: Negative for fever. HENT: Negative for sore throat. Eyes: Negative for visual changes. Cardiovascular: Negative for chest pain. Respiratory: Negative for shortness of breath. Gastrointestinal: Negative for abdominal pain, vomiting or diarrhea. Genitourinary: Negative for dysuria. Musculoskeletal: + Left hand pain Skin: Negative for rash. Neurological: Negative for headaches, weakness or numbness. 10 point ROS negative except as marked above and in HPI. Physical Exam - Vital signs Vitals: Temp Pulse Resp BP Pulse Ox 97.9 F 93 18 118/63 98 10/31/19 08:55 10/31/19 08:55 10/31/19 08:55 10/31/19 08:55 10/31/19 08:55 - Notes Notes: PHYSICAL EXAMINATION: Physical Exam: General: Well-nourished well-developed 69-year-old man in no acute distress HEENT: NC/AT, pupils equal round and reactive to light, MM moist,nares clear, oropharynx clear, airway patent Neck: supple, no adenopathy, no masses. Good range of motion Lungs: clear, no wheezing, no rales no rhonchi CVS: Regular rate and rhythm no murmur gallop or rub Abdomen: Soft, active, nontender, no masses, no hepatosplenomegaly Ext: + Left hand with tenderness and swelling in the thumb and index finger with a mild puffiness of the hand diffusely, hypersensitivity/tenderness to light touch. Neuro: Alert and responsive, moving all 4 extremities on command, cranial nerves intact, no focal findings Skin: Intact no open lesions, no rash PSYCH: Normal mood, normal affect. Course - Re-evaluation Re-evalutation: 10/31/19 12:47 Patient was given IV Toradol and Decadron, he has a history of diabetes mellitus and some renal dysfunction. He is given a liter fluid along with the medications and I have instructed him to continue his colchicine until he can see his primary care doctor tomorrow. - Vital Signs Vital signs: Temp Pulse Resp BP Pulse Ox 97.8 F 83 16 115/65 89 L 10/31/19 12:25 10/31/19 12:25 10/31/19 12:25 10/31/19 12:25 10/31/19 12:25 - Laboratory Result Diagrams: 10/31/19 09:33 10/31/19 09:33 Laboratory results interpreted by me: 10/31/19 10/31/19 09:33 09:33 Hgb 10.5 L Hct 33.3 L MCV 75 L MCH 23.7 L MCHC 31.5 L RDW 15.0 H BUN 33 H Creatinine 2.14 H Est GFR ( Amer) 37 L Est GFR (MDRD) Non-Af 31 L Glucose 238 H Discharge - Discharge Clinical Impression: Gouty arthritis of left hand Condition: Good Disposition: HOME, SELF-CARE Instructions: Gout ([facility]), Gout Diet ([facility]) Additional Instructions: Discontinue your medicines for gout that were given to you by your primary care doctor and, Please see your physician tomorrow for recheck and reevaluation. You are given tramadol for pain, may be used in conjunction with Tylenol for your pain. Prescriptions: Tramadol HCl [Ultram 50 mg Tablet] 50 mg PO Q6 PRN #10 tablet PRN Reason: For Pain Scale 4-5 Referrals: RUFINA LOWRY MD [Primary Care Provider] - Follow up as needed
[2019-10-31 12:27] VITALS: BP 115/65
== END 2019-10-31 13:01 | disposition home or self-care (01) ==
LOC: ER 08:35
DX: M10.9 Gout, unspecified (principal); M79.642 Pain in left hand; I25.10 Atherosclerotic heart disease of native coronary artery without angina pectoris; I10 Essential (primary) hypertension; J44.9 Chronic obstructive pulmonary disease, unspecified; E11.9 Type 2 diabetes mellitus without complications
CPT/HCPCS: 99283; 96361; 96374; 96375; 36415; 85025; 80053; 73130; J1885; J7040; J1100

== ENCOUNTER 2019-12-28 06:17 | Emergency (ER) | payer MEDICARE, OTHER ==
[2019-12-28] MEDS ORDERED: ACETAMINOPHEN 325 MG TABLET PO ONE (06:45)
[2019-12-28] MEDS ORDERED: METHYLPREDNISOLONE INJ 125 MG/2 ML SDV IM ONE (06:45)
[2019-12-28] MEDS ORDERED: OXYCODONE-ACETAMINOPHEN 5-325 MG TABLET PO ONE (06:45)
--- NOTE | 2019-12-28 06:48 | ER Document Report ---
HPI - HPI Time Seen by Provider: 12/28/19 06:34 Pain Level: 5 Context: Patient is a 69-year-old male that comes emergency department for chief complaint of gout flare. He states that he has been developing over the past day or so, he has developed swelling and pain with walking or touch to the left inner ankle. He states he has had gout in this location before including his hands, feet, toes. He denies alcohol, seafood, but does admit to red meat 2 days ago. He denies fevers, injury, or any other complaints. Past medical history of A. fib on Eliquis, CAD/PR, hypertension, hyperlipidemia, type 2 diabetes, chronic kidney disease. He states he took colchicine prior to arrival, he states he always takes 1 dose when he gets this, he always gets "steroid shot" and something for pain, he states that after this usually starts getting better and can go home on oral medications. He states he cannot take a second dose of colchicine because he was told by his provider not to. He states he was told he cannot be on preventative medication. - REPRODUCTIVE Reproductive: DENIES: : Past Medical History - General Information source: Patient - Social History Smoking Status: Never Smoker Frequency of alcohol use: None Drug Abuse: None Lives with: Family Family History: Reviewed & Not Pertinent, DM, Hypertension Patient has suicidal ideation: No Patient has homicidal ideation: No - Past Medical History Cardiac Medical History: Reports: Hx Atrial Fibrillation - Paroxysmal, Hx Congestive Heart Failure - Systolic; ejection fraction 2017 of approximately 20%., Hx Coronary Artery Disease, Hx Heart Attack - [place] December 2016, Hx Hypercholesterolemia, Hx Hypertension Denies: Hx DVT, Hx Pulmonary Embolism Pulmonary Medical History: Reports: Hx Bronchitis, Hx COPD - Nightly and as needed 2 L oxygen per nasal cannula, Hx Sleep Apnea - Nasal CPAP; pressure 10 Denies: Hx Asthma Neurological Medical History: Denies: Hx Seizures Endocrine Medical History: Reports: Hx Diabetes Mellitus Type 2. Denies: Hx Diabetes Mellitus Type 1, Hx Hyperthyroidism, Hx Hypothyroidism Renal/ Medical History: Reports: Hx Renal Insufficiency. Denies: Hx Peritoneal Dialysis GI Medical History: Reports: Hx Gastroesophageal Reflux Disease, Hx Colonoscopy, Hx Endoscopy. Denies: Hx Cirrhosis Musculoskeletal Medical History: Reports Hx Arthritis - gout, Reports Hx Gout - Primarily affecting left ankle and foot, Reports Hx Musculoskeletal Deformity - Back pain for 4-5 years Psychiatric Medical History: Denies: Hx Depression Infectious Medical History: Denies: Hx C-Diff, Hx MRSA Past Surgical History: Reports: Hx Cardiac Surgery - DEFIB, pt states no. states it was portable, Hx Orthopedic Surgery - right rotator cuff. Denies: Hx Pacemaker - Immunizations Hx Diphtheria, Pertussis, Tetanus Vaccination: Yes Hx Pneumococcal Vaccination: 11/05/13 Vertical Provider Document - CONSTITUTIONAL General Appearance: WD/WN, No Apparent Distress - INFECTION CONTROL TRAVEL OUTSIDE OF THE [place] IN LAST 30 DAYS: No - HEENT HEENT: Atraumatic, Normocephalic - NECK Neck: Normal Inspection - RESPIRATORY Respiratory: Breath Sounds Normal, No Respiratory Distress - CARDIOVASCULAR Cardiovascular: Regular Rate, Regular Rhythm - GI/ABDOMEN Gastrointestinal: Abdomen Soft, Abdomen Non-Tender. negative: Abdomen Tender - BACK Back: Normal Inspection - MUSCULOSKELETAL/EXTREMETIES Musculoskeletal/Extremeties: MAEW, FROM, Tender - Tender over the left ankle at the medial malleolus and slightly around this, there is mild warmth, no significant erythema, very mild soft tissue swelling. Range of motion is painful but intact, patient reacts with any small touch over the area. He has a lidocaine patch that I removed to examine it. Normal knee, leg, foot exam otherwise, normal distal neurovascular exam. No ecchymosis or obvious signs of trauma. - NEURO Level of Consciousness: Awake, Alert, Appropriate Motor/Sensory: No Motor Deficit, No Sensory Deficit - DERM Integumentary: Warm, Dry, No Rash Course - Re-evaluation Re-evalutation: Review of previous records shows average creatinine of 2. Patient has been placed on indomethacin for gout previously in the past frequently, however because of his chronic kidney disease I do not feel that this is in the patient's best interest. I discussed with him different options, he is hoping for steroids. He states he checked his blood sugar regularly and his average blood sugar lately has been around 100. He states he expects the elevated glucose and he will adjust for this. He will be provided with pain medicine and stool softeners as well. His examination is very suggestive of a gout flare, he has no fever, he is able to ambulate, he has had repeated symptoms that are the same in the past with resolution with treatment. Patient is well-appearing, no other complaints. Discussed follow-up and return precautions. Patient states appreciation and agreement. Stable and well-appearing at time of discharge. - Vital Signs Vital signs: Temp Pulse Resp BP Pulse Ox 97.5 F 87 16 134/72 H 100 12/28/19 06:23 12/28/19 06:23 12/28/19 06:23 12/28/19 06:23 12/28/19 06:23 Discharge - Discharge Clinical Impression: Left ankle pain Qualifiers: Chronicity: acute Qualified Code(s): M25.572 - Pain in left ankle and joints of left foot Gout attack Qualifiers: Gout site: ankle Gout etiology: unspecified cause Laterality: left Qualified Code(s): M10.9 - Gout, unspecified Condition: Stable Disposition: HOME, SELF-CARE Instructions: Gout Diet ([facility]) Additional Instructions: Your evaluation is most consistent with a gout flare in your joint. Use the crutches, elevate your foot, take the Percocet if needed for pain, if you do also take the MiraLAX stool softener to avoid constipation. Take the prednisone as prescribed to treat the inflammation and swelling. Make sure that you avoid foods with carbohydrates or your blood sugars will rise. Drink plenty of fluids. Follow-up with your provider for additional management. You can discuss with your provider preventative medication such as allopurinol but you have not been started on this because of your chronic kidney disease. Return if you worsen including severe worsening swelling or pain, fever, or any other concerning or worsening symptoms. Prescriptions: Prednisone [Deltasone 10 mg Tablet] 10 mg PO ASDIR PRN #21 tablet PRN Reason: Polyethylene Glycol 3350 [Miralax Powder 17 gm/Packet] 1 packet PO DAILY PRN #1 pkg PRN Reason: Oxycodone HCl/Acetaminophen [Percocet 5-325 mg Tablet] 1 - 2 tab PO TID PRN #12 tablet PRN Reason: Referrals: RUFINA LOWRY MD [Primary Care Provider] - Follow up in 3-5 days
[2019-12-28] MEDS ORDERED: OXYCODONE HCL IR 5 MG TABLET PO ONE (07:44)
[2019-12-28] MEDS ORDERED: ONDANSETRON 4 MG TAB.RAPDIS PO ONE (07:44)
[2019-12-28 07:52] VITALS: BP 120/62
== END 2019-12-28 07:50 | disposition home or self-care (01) ==
LOC: ER 06:17
DX: M10.9 Gout, unspecified (principal); M25.572 Pain in left ankle and joints of left foot; M79.89 Other specified soft tissue disorders; I48.91 Unspecified atrial fibrillation; Z79.01 Long term (current) use of anticoagulants; I12.9 Hypertensive chronic kidney disease with stage 1 through stage 4 chronic kidney disease, or unspecified chronic kidney disease; I50.9 Heart failure, unspecified; E11.22 Type 2 diabetes mellitus with diabetic chronic kidney disease; N18.9 Chronic kidney disease, unspecified; I25.10 Atherosclerotic heart disease of native coronary artery without angina pectoris; I25.2 Old myocardial infarction
CPT/HCPCS: 99283; A9270 ×4; J2930; S0119

== ENCOUNTER → 2020-01-17 | Outpatient (CLI) | payer MEDICARE, OTHER ==
[2020-01-17 08:08] LABS: ABSOLUTE BASOPHILS # (AUTO) 0.1 10^3/uL (0.0-0.2); ABSOLUTE EOSINOPHILS # (AUTO) 0.1 10^3/uL (0.0-0.6); ABSOLUTE LYMPHOCYTES (AUTO) 2.4 10^3/uL (0.5-4.7); ABSOLUTE MONOCYTES (AUTO) 0.7 10^3/uL (0.1-1.4); ABSOLUTE NEUT (AUTO) 4.7 10^3/uL (1.7-8.2); BASOPHILS % (AUTO) 0.8 % (0-2); EOSINOPHILS % (AUTO) 1.2 % (0-6); HEMATOCRIT 35.2 % (37.9-51.0); HEMOGLOBIN 11.4 g/dL (13.5-17.0); LYMPHOCYTES % (AUTO) 29.9 % (13-45); MEAN CORPUSCULAR HEMOGLOBIN 24.2 pg (27.0-33.4); MEAN CORPUSCULAR HGB CONC 32.3 g/dL (32.0-36.0); MEAN CORPUSCULAR VOLUME 75 fl (80-97); MONOCYTES % (AUTO) 8.8 % (3-13); PLATELET COUNT 178 10^3/uL (150-450); RED BLOOD COUNT 4.68 10^6/uL (4.35-5.55); RED CELL DISTRIBUTION WIDTH 15.2 % (11.5-14.0); SEGMENTED NEUTROPHILS % (AUTO) 59.3 % (42-78); TOTAL CELLS COUNTED % (AUTO) 100 %
[2020-01-17 08:32] LABS: ALBUMIN 4.4 g/dL (3.5-5.0); ANION GAP 8 (5-19); BLOOD UREA NITROGEN 42 mg/dL (7-20); CALCIUM 9.9 mg/dL (8.4-10.2); CARBON DIOXIDE 31 mmol/L (22-30); CHLORIDE 102 mmol/L (98-107); GLUCOSE 119 mg/dL (75-110); PHOSPHORUS 4.2 mg/dL (2.5-4.5); POTASSIUM 3.8 mmol/L (3.6-5.0)
[2020-01-17 09:00] LABS: APPEARANCE,URINE CLEAR; BILIRUBIN,URINE NEGATIVE (NEGATIVE); COLOR,URINE YELLOW; GLUCOSE, URINE NEGATIVE (NEGATIVE); KETONES,URINE NEGATIVE (NEGATIVE); PROTEIN,URINE NEGATIVE (NEGATIVE); URINE SPECIFIC GRAVITY 1.014; UROBILINOGEN,URINE NEGATIVE mg/dL (<2.0)
[2020-01-17 09:01] LABS: ADD MANUAL MICROSCOPIC YES; LEUKOCYTE ESTERASE,URINE NEGATIVE (NEGATIVE); NITRITE,URINE NEGATIVE (NEGATIVE)
[2020-01-17 09:02] LABS: RBC,URINE NONE SEEN /HPF; WBC,URINE NONE SEEN /HPF
[2020-01-18 12:36] LABS: MICROALBUMIN URINE 8.4 ug/mL (Not Estab.)
== END ==
LOC: OD 07:33
PROVIDERS: ATTEND Internal Medicine Nephrology
DX: E11.22 Type 2 diabetes mellitus with diabetic chronic kidney disease (principal); I12.9 Hypertensive chronic kidney disease with stage 1 through stage 4 chronic kidney disease, or unspecified chronic kidney disease; N18.3 Chronic kidney disease, stage 3 (moderate); D63.1 Anemia in chronic kidney disease; N25.81 Secondary hyperparathyroidism of renal origin
CPT/HCPCS: 36415; 80069; 81001; 82043; 82306; 82570; 83970; 85025

== ENCOUNTER 2020-01-21 05:25 | Emergency (ER) | payer MEDICARE, OTHER ==
[2020-01-21] MEDS ORDERED: ONDANSETRON HCL INJ/PF 4 MG/2 ML SDV IV ONE (06:28)
[2020-01-21] MEDS ORDERED: MORPHINE SULFATE 10 MG/ML INJ IV ONE (06:28)
[2020-01-21] MEDS ORDERED: METHOCARBAMOL INJ/PF 1000 MG/10 ML SDV IV ONE (06:32)
[2020-01-21 07:00] LABS: HEMATOCRIT 33.6 % (37.9-51.0); HEMOGLOBIN 10.8 g/dL (13.5-17.0); MEAN CORPUSCULAR HEMOGLOBIN 24.2 pg (27.0-33.4); MEAN CORPUSCULAR HGB CONC 32.2 g/dL (32.0-36.0); MEAN CORPUSCULAR VOLUME 75 fl (80-97); PLATELET COUNT 192 10^3/uL (150-450); RED BLOOD COUNT 4.48 10^6/uL (4.35-5.55); RED CELL DISTRIBUTION WIDTH 15.7 % (11.5-14.0); WHITE BLOOD COUNT 8.1 10^3/uL (4.0-10.5)
--- NOTE | 2020-01-21 07:06 | ER Document Report ---
Entered by FAISAL CODY SCRIBE 01/21/20 0629 Acting as scribe for:CLIFFORD SALAZAR MD ED Neck/Back Problem - General Chief Complaint: Back Pain Stated Complaint: RIGHT LOWER BACK PAIN Time Seen by Provider: 01/21/20 06:10 Primary Care Provider: RUFINA LOWRY MD [Primary Care Provider] - Follow up as needed Mode of Arrival: Ambulatory Information source: Patient Notes: This 69 year old male patient presents to the emergency department today with complaints of right sided low back pain. Patient states that he was working out in his yard on Thursday (01/17) at 4:30 PM when he fell sideways off a stool landing on his right side. Patient reports he got back up on the stool and fell off again in the same fashion about 10 minutes later. Patient reports that he went inside after falling again, took a shower, and laid down in bed. Patient reports that he woke up at 11:30 PM that same night (01/17) in pain and has had pain ever since. Patient states that he has chronic back pain and that "it is in his records" when asked to further describe his chronic back pain. The patient is on Eliquis for his paroxysmal atrial fibrillation. He did have a LifeVest in the past, but no longer wears 1 and states that his comp field case manager told him he did not need to wear it any longer. He did not have a pacemaker or defibrillator placed. TRAVEL OUTSIDE OF THE [place] IN LAST 30 DAYS: No - Related Data Allergies/Adverse Reactions: promethazine [From Phenergan] Adverse Reaction (Intermediate, Verified 12/28/19 06:25) Dystonia Past Medical History - General Information source: Patient - Social History Smoking Status: Never Smoker Cigarette use (# per day): No Frequency of alcohol use: None Drug Abuse: None Lives with: Family Family History: Reviewed & Not Pertinent, DM, Hypertension Patient has homicidal ideation: No - Past Medical History Cardiac Medical History: Reports: Hx Atrial Fibrillation - Paroxysmal, Hx Congestive Heart Failure - Systolic; ejection fraction 2016 of approximately 20%., Hx Coronary Artery Disease, Hx Heart Attack - [place] December 2016, Hx Hypercho lesterolemia, Hx Hypertension Pulmonary Medical History: Reports: Hx Bronchitis, Hx COPD - Nightly and as needed 2 L oxygen per nasal cannula, Hx Sleep Apnea - Nasal CPAP; pressure 10 Endocrine Medical History: Reports: Hx Diabetes Mellitus Type 2 Renal/ Medical History: Reports: Hx Renal Insufficiency GI Medical History: Reports: Hx Gastroesophageal Reflux Disease, Hx Colonoscopy, Hx Endoscopy Musculoskeletal Medical History: Reports Hx Arthritis, Reports Hx Gout - Pr imarily affecting left ankle and foot, Reports Hx Musculoskeletal Deformity - Back pain years Infectious Medical History: Past Surgical History: Reports: Hx Cardiac Surgery - DEFIB, pt states no. states it was portable, Hx Orthopedic Surgery - right rotator cuff - Immunizations Hx Diphtheria, Pertussis, Tetanus Vaccination: Yes Hx Pneumococcal Vaccination: 11/05/13 Review of Systems - Review of Systems Constitutional: No symptoms reported EENT: No symptoms reported Cardiovascular: No symptoms reported Respiratory: No symptoms reported Gastrointestinal: No symptoms reported Genitourinary: No symptoms reported Male Genitourinary: No symptoms reported Musculoskeletal: See HPI, Back pain Skin: No symptoms reported Hematologic/Lymphatic: No symptoms reported Neurological/Psychological: No symptoms reported -: Yes All other systems reviewed and negative Physical Exam - Vital signs Vitals: Temp Pulse Resp BP Pulse Ox 98.7 F 85 16 150/92 H 100 01/21/20 05:29 01/21/20 05:29 01/21/20 05:29 01/21/20 05:29 01/21/20 05:29 - General General appearance: Alert, Anxious In distress: Moderate Notes: Patient is emotionally crying, yelling, very difficult to get a history from him. Upset that he has already told 3 people about his problem. - HEENT Head: Normocephalic, Atraumatic Eyes: Normal Pupils: PERRL Neck: Normal - Respiratory Respiratory status: No respiratory distress Chest status: Nontender Breath sounds: Normal - Cardiovascular Rhythm: Regular Heart sounds: Normal auscultation Murmur: No - Abdominal Inspection: Obese Bowel sounds: Normal Tenderness: Nontender - Back Back: Tender - Very tender to palpate the right lumbar and sacral back region. He is not tender over the lumbar spinous processes. There is also tenderness going around to the side of the abdomen wall but not going anteriorly onto the abdomen. There is no swelling, and no bruising noted. - Extremities General upper extremity: Normal inspection General lower extremity: Normal inspection - Neurological Neuro grossly intact: Yes - Psychological Associated symptoms: Normal affect, Normal mood, Other - After the patient had been medicated and was feeling better, then his mood and affect were normal. - Skin Skin Temperature: Warm Skin Moisture: Dry Skin Color: Normal Course - Re-evaluation Re-evalutation: 01/21/20 07:49 The patient has had Zofran 8 mg IV, morphine 5 mg IV, and almost finished 1 g of Robaxin IV. He is now quite comfortable and smiling, apologizing for how he behaved when I first try to interview him and get a history and physical exam. I was able to review the history with him and confirm that he did in fact turn and fall off of a stool onto the ground, got back up on the stool and shortly afterwards fell again onto the ground. That was about 4:30 PM on Thursday. He went in the house, took shower, and went to bed. He woke up about 11:30 PM which was 7 hours after the initial incident and severe pain and had been that way ever since. He did notice that turning twisting trying to sit up all made his pain even worse. He did confirm that there is no radiation of the pain into his thigh or leg, and there is no perineal numbness or difficulty with urination or defecation. The patient's hemoglobin is 10.8, this is essentially unchanged from several CBCs since the first of the year. Given the physical exam, and the relief provided from the medication, and a stable hemoglobin, I do not think he needs a CT scan to look for any retroperitoneal bleeding or intramuscular bleeding at this time. - Vital Signs Vital signs: Temp Pulse Resp BP Pulse Ox 98.7 F 85 16 150/92 H 99 01/21/20 05:36 01/21/20 05:29 01/21/20 08:00 01/21/20 05:29 01/21/20 08:00 - Laboratory Result Diagrams: 01/21/20 06:49 01/21/20 06:49 Laboratory results interpreted by me: 01/21/20 01/21/20 06:49 06:49 Hgb 10.8 L Hct 33.6 L MCV 75 L MCH 24.2 L RDW 15.7 H BUN 31 H Creatinine 1.83 H Est GFR ( Amer) 44 L Est GFR (MDRD) Non-Af 37 L Glucose 158 H Discharge - Discharge Clinical Impression: Strain of muscle, fascia and tendon of lower back, initial encounter Acute lumbar back pain Qualifiers: Back pain laterality: right Sciatica presence: without sciatica Qualified Code(s): M54.5 - Low back pain Condition: Stable Disposition: HOME, SELF-CARE Additional Instructions: Lumbar Muscle Strain: You have strained a muscle -- torn the fibers within the muscle. This often occurs with strenuous exertion, or during an injury that suddenly stretches the muscle. The seriousness of a strain varies. Some strains heal within days, others cause problems for months. X-rays cannot show a muscle strain. X-rays are taken only if symptoms suggest that a fracture could be present. The usual treatment of a muscle strain is rest and ice packs. Sometimes, a sling, splint, or crutches may be necessary to rest the muscle. The muscle can be used again once pain subsides. Severe strains require a special exercise and stretching program to prevent permanent stiffness and disability. Your doctor will advise you if this will be necessary. Call the doctor immediately if pain or swelling becomes severe, or if numbness or discoloration develop. Take the medications as prescribed for pain and muscle spasm. Limit activities that make the pain worse. Follow-up with your primary care provider on Thursday for recheck. RETURN TO THE EMERGENCY ROOM IF ANY NEW OR WORSENING SYMPTOMS. Prescriptions: Hydrocodone/Acetaminophen [[place] 5-325 mg Tablet] 1 tab PO ASDIR PRN #12 tablet PRN Reason: For Pain Methocarbamol [Robaxin 750 mg Tablet] 750 mg PO ASDIR PRN #40 tablet PRN Reason: Referrals: RUFINA LOWRY MD [Primary Care Provider] - Follow up as needed I personally performed the services described in the documentation, reviewed and edited the documentation which was dictated to the scribe in my presence, and it accurately records my words and actions.
[2020-01-21 07:18] LABS: ALBUMIN 3.9 g/dL (3.5-5.0); ALKALINE PHOSPHATASE 81 U/L (38-126); ANION GAP 6 (5-19); ASPARTATE AMINO TRANSFERASE 25 U/L (17-59); BILIRUBIN,DIRECT 0.1 mg/dL (0.0-0.4); BILIRUBIN,TOTAL 0.5 mg/dL (0.2-1.3); BLOOD UREA NITROGEN 31 mg/dL (7-20); CALCIUM 9.4 mg/dL (8.4-10.2); CARBON DIOXIDE 28 mmol/L (22-30); CHLORIDE 105 mmol/L (98-107); GLUCOSE 158 mg/dL (75-110); POTASSIUM 4.2 mmol/L (3.6-5.0); TOTAL PROTEIN 6.8 g/dL (6.3-8.2)
[2020-01-21 07:22] LABS: ABSOLUTE MONOCYTES # (MANUAL) 0.5 10^3/uL (0.1-1.4); BASOPHILS % (MANUAL) 1 % (0-2); EOSINOPHILS % (MANUAL) 3 % (0-6); LYMPHOCYTES % (MANUAL) 22 % (13-45); MONOCYTES % (MANUAL) 6 % (3-13); SEGMENTED NEUTROPHILS % (MAN) 65 % (42-78); TOTAL CELLS COUNTED 100
[2020-01-21 07:23] LABS: ANISOCYTOSIS SLIGHT; HYPOCHROMASIA SLIGHT; POLYCHROMASIA 1+
[2020-01-21 07:24] LABS: OVALOCYTES 1+; PLATELET COMMENT ADEQUATE; POIKILOCYTOSIS SLIGHT
[2020-01-21 08:37] VITALS: BP 128/79
== END 2020-01-21 08:43 | disposition home or self-care (01) ==
LOC: ER 05:25
DX: S39.012A Strain of muscle, fascia and tendon of lower back, initial encounter (principal); M54.9 Dorsalgia, unspecified; G89.29 Other chronic pain; W07.XXXA Fall from chair, initial encounter; I48.0 Paroxysmal atrial fibrillation; Z79.01 Long term (current) use of anticoagulants; I50.9 Heart failure, unspecified; I25.10 Atherosclerotic heart disease of native coronary artery without angina pectoris; I25.2 Old myocardial infarction; I11.0 Hypertensive heart disease with heart failure; J44.9 Chronic obstructive pulmonary disease, unspecified; E11.9 Type 2 diabetes mellitus without complications
CPT/HCPCS: 36415; 82550; 85025; 80053; J2800; J2270; J2405

== ENCOUNTER 2020-04-07 19:55 | Emergency (ER) | payer MEDICARE, OTHER ==
--- NOTE | 2020-04-08 00:56 | RADIOLOGY REPORT (SQ) ---
EXAM DESCRIPTION: CT head without contrast CLINICAL HISTORY: 69 years Male, extremity weakness COMPARISON: CT head 09/09/2019 TECHNIQUE: Axial images of the head were performed without the use of intravenous contrast, with sagittal and coronal reformatted images. This exam was performed according to our departmental dose-optimization program which includes use of Automated Exposure Control, adjustment of the mA and/or kV according to patient size and/or use of iterative reconstruction technique. FINDINGS: No evidence of acute hemorrhage or infarct. No evidence of mass or hydrocephalus. There is a large arachnoid cyst in the left parieto-occipital region, a chronic finding. There is no significant change, as compared with the prior CT scan. IMPRESSION: No acute finding. Large left parieto-occipital arachnoid cyst.
--- NOTE | 2020-04-08 01:32 | ER Document Report ---
Entered by BRENDA MATHUR SCRIBE 04/07/20 [id number] Acting as scribe for:CARLEEN NEWBY IV, MD ED General - General Chief Complaint: Shortness Of Breath Stated Complaint: MUSCLE PAIN,HEADACHE,LOSS OF TASTE Time Seen by Provider: 04/07/20 23:24 Primary Care Provider: RUFINA LOWRY MD [Primary Care Provider] - Follow up as needed Mode of Arrival: Ambulatory Information source: Patient Notes: This 69 year old male patient presents to the ED today with complaints of a possible adverse reaction to Lyrica that started x2 days ago. Patient states that he was placed on 100 mg Lyrica by his back doctor x5 days ago and that x3 days later, he had generalized weakness, blurred vision, confusion, diarrhea, weight gain, and myalgia. He also mentions numbness/tingling to his bilateral hands and feet. He reports that he has since stopped taking the Lyrica at his doctor's request. Denies any other complaints. TRAVEL OUTSIDE OF THE [place] IN LAST 30 DAYS: No - Related Data Allergies/Adverse Reactions: promethazine [From Phenergan] Adverse Reaction (Intermediate, Verified 12/28/19 06:25) Dystonia Past Medical History - General Information source: Patient, H Records - Social History Smoking Status: Unknown if Ever Smoked Smoking Education Provided: No Family History: Reviewed & Not Pertinent, DM, Hypertension Patient has suicidal ideation: No Patient has homicidal ideation: No - Past Medical History Cardiac Medical History: Reports: Hx Atrial Fibrillation - Paroxysmal, Hx Congestive Heart Failure - Systolic; ejection fraction 2017 of approximately 20%., Hx Coronary Artery Disease, Hx Heart Attack - [place] December 2016, Hx Hypercholesterolemia, Hx Hypertension Pulmonary Medical History: Reports: Hx Bronchitis, Hx COPD - Nightly and as needed 2 L oxygen per nasal cannula, Hx Sleep Apnea - Nasal CPAP; pressure 10 Endocrine Medical History: Reports: Hx Diabetes Mellitus Type 2 Renal/ Medical History: Reports: Hx Renal Insufficiency GI Medical History: Reports: Hx Gastroesophageal Reflux Disease, Hx Colonoscopy, Hx Endoscopy Musculoskeletal Medical History: Reports Hx Arthritis, Reports Hx Gout - Primarily affecting left ankle and foot, Reports Hx Musculoskeletal Deformity - Back pain years Infectious Medical History: Past Surgical History: Reports: Hx Cardiac Surgery - DEFIB, pt states no. states it was portable, Hx Orthopedic Surgery - right rotator cuff - Immunizations Hx Diphtheria, Pertussis, Tetanus Vaccination: Yes Hx Pneumococcal Vaccination: 11/05/13 Review of Systems - Review of Systems Constitutional: See HPI, Weakness, Weight gain EENT: See HPI, Blurred vision Cardiovascular: No symptoms reported Respiratory: No symptoms reported Gastrointestinal: See HPI, Diarrhea Genitourinary: No symptoms reported Male Genitourinary: No symptoms reported Musculoskeletal: See HPI, Muscle pain Skin: No symptoms reported Hematologic/Lymphatic: No symptoms reported Neurological/Psychological: See HPI, Confusion, Numbness, Tingling -: Yes All other systems reviewed and negative Physical Exam - Vital signs Vitals: Temp Pulse Resp BP Pulse Ox 97.8 F 63 16 119/63 98 04/07/20 21:54 04/07/20 21:54 04/07/20 21:54 04/07/20 21:54 04/07/20 21:54 Interpretation: Normal - General General appearance: Alert In distress: None - HEENT Head: Normocephalic, Atraumatic Eyes: Normal Pupils: PERRL - Respiratory Respiratory status: No respiratory distress Chest status: Nontender Breath sounds: Normal Chest palpation: Normal - Cardiovascular Rhythm: Regular Heart sounds: Normal auscultation Murmur: No Friction rub: No Gallop: None auscultated - Abdominal Inspection: Normal Distension: No distension Bowel sounds: Normal Tenderness: Nontender - Abdomen soft Organomegaly: No organomegaly - Back Back: Normal, Nontender - Extremities General upper extremity: Normal inspection General lower extremity: Normal inspection - Neurological Neuro grossly intact: Yes - No focal neurological deficits Cognition: Normal Orientation: AAOx4 Elen Coma Scale Eye Opening: Spontaneous [place]en Coma Scale Verbal: Oriented [place] Coma Scale Motor: Obeys Commands Elen Coma Scale Total: 15 Speech: Normal Cranial nerves: No: Facial palsy - Psychological Associated symptoms: Normal affect, Normal mood - Skin Skin Temperature: Warm Skin Moisture: Dry Skin Color: Normal Course - Re-evaluation Re-evalutation: 04/08/20 04:52 Results of ED MSE discussed with patient. Patient states that he had the same reaction to Lyrica when he was put on it in the past at the 50 mg dose. All questions were answered prior to discharge. Emergency signs and symptoms, reasons to return to the emergency department discussed with patient. - Vital Signs Vital signs: Temp Pulse Resp BP Pulse Ox 97.7 F 63 18 129/80 H 100 04/08/20 00:00 04/07/20 23:30 04/07/20 23:30 04/07/20 23:30 04/07/20 23:30 - Laboratory Result Diagrams: 04/08/20 04:03 04/08/20 02:02 Laboratory results interpreted by me: 04/08/20 04/08/20 02:02 04:03 Hgb 11.4 L Hct 35.5 L MCV 76 L MCH 24.2 L RDW 14.8 H Plt Count 138 L BUN 41 H Creatinine 2.34 H Est GFR ( Amer) 33 L Est GFR (MDRD) Non-Af 28 L Glucose 131 H - EKG Interpretation by Me Additional EKG results interpreted by me: 04/08/20 04:53 EKG obtained on 04/08/2020 at 00 51 hours was interpreted by this MD. Findings: Sinus rhythm, heart rate 64, left axis deviation is present, P waves proceed QRS complexes, QRS complexes appear narrow, there are no obvious patterns of ST segment elevation or depression present to suggest acute myocardial ischemia or infarction. Impression: Normal sinus rhythm with left axis deviation and nonspecific ST segments. Discharge - Discharge Clinical Impression: Medication adverse effect Qualifiers: Encounter type: initial encounter Qualified Code(s): T50.905A - Adverse effect of unspecified drugs, medicaments and biological substances, initial encounter Condition: Stable Disposition: HOME, SELF-CARE Additional Instructions: It appears you have had a adverse reaction to Lyrica. You should avoid taking this drug in the future. Return to the Emergency Department without delay if any worse. HOME CARE INSTRUCTIONS & INFORMATION: Thank you for choosing us for your medical needs. We hope you're satisfied with the care you received. After you leave, you must properly care for your problem and, at the same time, observe its progress. Any condition can change. Some illnesses can change rapidly over hours or days. If your condition worsens, return to the Emergency Department or see your physician promptly. ABOUT YOUR X-RAYS AND EKG'S: If you had an EKG or X-rays taken, they have been read by the Emergency Physician. The X-rays and EKG's will also be read by a Ra diologist or Solar Tech within 24 hours. If discrepancies are noted, you will be notified by telephone. Please be certain the ED has a correct telephone number & address where you can be reached. Also, realize that some fractures or abnormalities do not show up on initial X-rays. If your symptoms continue, see your physician. ABOUT YOUR LABORATORY TEST: If you had laboratory tests, the results have been reviewed by the Emergency Physician. Some test results (for example cultures) may not be available for several days. You will be contacted if any test result shows you need additional treatment. Please be certain the ED has a correct telephone number and address where you can be reached. ABOUT YOUR MEDICATIONS: You will receive instructions on how to take your medicine on the prescription label you receive. Additional information may be provided by the Pharmacy. If you have questions afterwards, call the ED for clarification or further instructions. Some prescribed medications may cause drowsiness. Do not perform tasks such as driving a car or operating machinery without consulting your Pharmacist. If you feel you need a refill of pain medication, your condition will need re-evaluation. Please do not call for a refill of any medication. ABOUT YOUR SIGNATURE: Signature of this document acknowledges to followin. Understanding that you received emergency treatment and that you may be released before al medical problems are known or treated. Please be certain the ED has a correct phone number & address where you can be reached. 2. Acknowledgement that you will arrange for follow-up care as recommended. 3. Authorization for the Emergency Physician to provide information to your follow-up Physician in order to maximize your care. AT ANY TIME, IF YOUR SYMPTOMS CHANGE SIGNIFICANTLY OR WORSEN OR YOU DEVELOP NEW SYMPTOMS, RETURN TO THE EMERGENCY DEPARTMENT IMMEDIATELY FOR RE-EVALUATION. OUR GOAL IS TO PROVIDE EXCELLENT MEDICAL CARE! WE HOPE THAT WE HAVE MET YOUR EXPECTATIONS DURING YOUR EMERGENCY DEPARTMENT VISIT AND THAT YOU FEEL YOU HAVE RECEIVED EXCELLENT CARE! Referrals: RUFINA LOWRY MD [Primary Care Provider] - Follow up as needed I personally performed the services described in the documentation, reviewed and edited the documentation which was dictated to the scribe in my presence, and it accurately records my words and actions.
[2020-04-08] MEDS ORDERED: KETOROLAC TROMETHAMINE INJ/PF 30 MG/1 ML SDV IV ONE (01:33)
[2020-04-08] MEDS ORDERED: KETOROLAC TROMETHAMINE 60 MG/2 ML SDV IM ONE (01:56)
[2020-04-08 03:49] LABS: APPEARANCE,URINE CLEAR; BILIRUBIN,URINE NEGATIVE (NEGATIVE); COLOR,URINE YELLOW; GLUCOSE, URINE NEGATIVE (NEGATIVE); KETONES,URINE NEGATIVE (NEGATIVE); LEUKOCYTE ESTERASE,URINE NEGATIVE (NEGATIVE); NITRITE,URINE NEGATIVE (NEGATIVE); PROTEIN,URINE NEGATIVE (NEGATIVE); URINE SPECIFIC GRAVITY 1.017; UROBILINOGEN,URINE NEGATIVE mg/dL (<2.0)
[2020-04-08 03:50] LABS: ALKALINE PHOSPHATASE 67 U/L (38-126); ANION GAP 5 (5-19); ASPARTATE AMINO TRANSFERASE 24 U/L (17-59); BILIRUBIN,TOTAL 0.4 mg/dL (0.2-1.3); BLOOD UREA NITROGEN 41 mg/dL (7-20); CALCIUM 9.9 mg/dL (8.4-10.2); CARBON DIOXIDE 29 mmol/L (22-30); CHLORIDE 105 mmol/L (98-107); CREATINE KINASE 118 U/L (55-170); GLUCOSE 131 mg/dL (75-110); POTASSIUM 4.2 mmol/L (3.6-5.0); TOTAL PROTEIN 6.9 g/dL (6.3-8.2)
[2020-04-08 04:10] LABS: ABSOLUTE EOSINOPHILS # (AUTO) 0.1 10^3/uL (0.0-0.6); ABSOLUTE LYMPHOCYTES (AUTO) 1.7 10^3/uL (0.5-4.7); ABSOLUTE MONOCYTES (AUTO) 0.6 10^3/uL (0.1-1.4); BASOPHILS % (AUTO) 0.7 % (0-2); EOSINOPHILS % (AUTO) 1.9 % (0-6); HEMATOCRIT 35.5 % (37.9-51.0); HEMOGLOBIN 11.4 g/dL (13.5-17.0); LYMPHOCYTES % (AUTO) 31.6 % (13-45); MEAN CORPUSCULAR HEMOGLOBIN 24.2 pg (27.0-33.4); MEAN CORPUSCULAR VOLUME 76 fl (80-97); MONOCYTES % (AUTO) 10.2 % (3-13); PLATELET COUNT 138 10^3/uL (150-450); RED BLOOD COUNT 4.69 10^6/uL (4.35-5.55); RED CELL DISTRIBUTION WIDTH 14.8 % (11.5-14.0); SEGMENTED NEUTROPHILS % (AUTO) 55.6 % (42-78); TOTAL CELLS COUNTED % (AUTO) 100 %; WHITE BLOOD COUNT 5.4 10^3/uL (4.0-10.5)
[2020-04-08 05:13] VITALS: BP 124/69
--- NOTE | 2020-04-08 12:25 | EKG REPORT ---
SEVERITY:- ABNORMAL ECG - SINUS RHYTHM LAD, CONSIDER LAFB OR INFERIOR INFARCT BORDERLINE R WAVE PROGRESSION, ANTERIOR LEADS BORDERLINE T WAVE ABNORMALITIES : Confirmed by: Tiffany Alba MD 08-Apr-2020 12:24:54
== END 2020-04-08 05:04 | disposition home or self-care (01) ==
LOC: ER 19:55
DX: T42.6X5A Adverse effect of other antiepileptic and sedative-hypnotic drugs, initial encounter (principal); R06.02 Shortness of breath; M79.10 Myalgia, unspecified site; R51 Headache; R20.2 Paresthesia of skin; I48.91 Unspecified atrial fibrillation; E11.9 Type 2 diabetes mellitus without complications
CPT/HCPCS: 93005; 99284; 96372; 36415; 82550; 85025; 80053; 81001; 70450; 93010; J1885

== ENCOUNTER 2020-05-12 21:40 | Emergency (ER) | payer MEDICARE, OTHER ==
[2020-05-12 22:57] LABS: ABSOLUTE BASOPHILS # (AUTO) 0.1 10^3/uL (0.0-0.2); ABSOLUTE EOSINOPHILS # (AUTO) 0.1 10^3/uL (0.0-0.6); ABSOLUTE LYMPHOCYTES (AUTO) 1.3 10^3/uL (0.5-4.7); ABSOLUTE MONOCYTES (AUTO) 0.6 10^3/uL (0.1-1.4); ABSOLUTE NEUT (AUTO) 4.9 10^3/uL (1.7-8.2); BASOPHILS % (AUTO) 0.9 % (0-2); EOSINOPHILS % (AUTO) 1.1 % (0-6); HEMATOCRIT 33.1 % (37.9-51.0); HEMOGLOBIN 10.7 g/dL (13.5-17.0); LYMPHOCYTES % (AUTO) 19.1 % (13-45); MEAN CORPUSCULAR HEMOGLOBIN 24.7 pg (27.0-33.4); MEAN CORPUSCULAR HGB CONC 32.2 g/dL (32.0-36.0); MEAN CORPUSCULAR VOLUME 77 fl (80-97); MONOCYTES % (AUTO) 9.2 % (3-13); PLATELET COUNT 137 10^3/uL (150-450); RED BLOOD COUNT 4.32 10^6/uL (4.35-5.55); RED CELL DISTRIBUTION WIDTH 14.9 % (11.5-14.0); SEGMENTED NEUTROPHILS % (AUTO) 69.7 % (42-78); TOTAL CELLS COUNTED % (AUTO) 100 %
[2020-05-12 23:12] LABS: ALBUMIN 3.9 g/dL (3.5-5.0); ALKALINE PHOSPHATASE 60 U/L (38-126); ANION GAP 8 (5-19); ASPARTATE AMINO TRANSFERASE 20 U/L (17-59); BILIRUBIN,DIRECT 0.3 mg/dL (0.0-0.4); BILIRUBIN,TOTAL 0.4 mg/dL (0.2-1.3); BLOOD UREA NITROGEN 43 mg/dL (7-20); CALCIUM 9.5 mg/dL (8.4-10.2); CARBON DIOXIDE 32 mmol/L (22-30); CHLORIDE 100 mmol/L (98-107); CREATINE KINASE 77 U/L (55-170); GLUCOSE 210 mg/dL (75-110); POTASSIUM 3.7 mmol/L (3.6-5.0); TOTAL PROTEIN 6.6 g/dL (6.3-8.2)
--- NOTE | 2020-05-12 23:17 | RADIOLOGY REPORT (SQ) ---
EXAM DESCRIPTION: XR CHEST 1 VIEW COMPLETED DATE/TME: 05/12/2020 22:45 CLINICAL HISTORY: 69 years, Male, chest pain COMPARISON: 04/20/2019 chest NUMBER OF VIEWS: 1 TECHNIQUE: Portable chest LIMITATIONS: None. FINDINGS: The heart size is normal. Lungs are clear. No pneumothorax. Post surgical change right shoulder IMPRESSION: No acute cardiopulmonary process copyright 2010 [employer]- All Rights Reserved
[2020-05-12 23:25] LABS: CREATINE KINASE MB 1.05 ng/mL (<4.55); TROPONIN I 0.02 ng/mL
--- NOTE | 2020-05-12 23:50 | ER Document Report ---
ED General - General Chief Complaint: Chest Pain Stated Complaint: SHORTNESS OF BREATH,CHEST PAIN Time Seen by Provider: 05/12/20 23:24 Primary Care Provider: RUFINA LOWRY MD [Primary Care Provider] - Follow up as needed Notes: 69-year-old man presenting to the emergency department with a complaint that he has developed diarrhea, cough, chest discomfort, sweating episodes and weakness which started on . He states his symptoms continued through yesterday and this afternoon. At approximately 6:30 in the evening his chest discomfort was worsening, he took Tylenol for the pain and "thought I was going to ". He is concerned that he has contracted the coronavirus, he has not been exposed to a known contact. He denies a loss of sense of smell or taste, while he has had chills and cold sweats, he has not measured a temperature elevation. TRAVEL OUTSIDE OF THE [place] IN LAST 30 DAYS: No - Related Data Allergies/Adverse Reactions: promethazine [From Phenergan] Adverse Reaction (Intermediate, Verified 12/28/19 06:25) Dystonia Home Medications: ASA, coreg, Bumex, NTG,ELiquis, Insulin, Isosor, Hydralazine, cozaar, keppra, prednisone, allupurinol, lidoderm Past Medical History - Social History Smoking Status: Never Smoker Chew tobacco use (# tins/day): No Frequency of alcohol use: None Drug Abuse: None Family History: Reviewed & Not Pertinent, DM, Hypertension - Past Medical History Cardiac Medical History: Reports: Hx Atrial Fibrillation - Paroxysmal, Hx Congestive Heart Failure - Systolic; ejection fraction 2016 of approximately 20%., Hx Coronary Artery Disease, Hx Heart Attack - [place] December 2016, Hx Hypercholesterolemia, Hx Hypertension Denies: Hx DVT, Hx Pulmonary Embolism Pulmonary Medical History: Reports: Hx Bronchitis, Hx COPD - Nightly and as needed 2 L oxygen per nasal cannula, Hx Sleep Apnea - Nasal CPAP; pressure 10 Denies: Hx Asthma Neurological Medical History: Denies: Hx Seizures Endocrine Medical History: Reports: Hx Diabetes Mellitus Type 2. Denies: Hx Diabetes Mellitus Type 1, Hx Hyperthyroidism, Hx Hypothyroidism Renal/ Medical History: Reports: Hx Renal Insufficiency. Denies: Hx Peritoneal Dialysis GI Medical History: Reports: Hx Gastroesophageal Reflux Disease, Hx Colonoscopy, Hx Endoscopy. Denies: Hx Cirrhosis Musculoskeletal Medical History: Reports Hx Arthritis, Reports Hx Gout - Primarily affecting left ankle and foot, Reports Hx Musculoskeletal Deformity - Back pain years Psychiatric Medical History: Denies: Hx Depression Infectious Medical History: Denies: Hx C-Diff, Hx MRSA Past Surgical History: Reports: Hx Cardiac Surgery - DEFIB, pt states no. states it was portable, Hx Orthopedic Surgery - right rotator cuff. Denies: Hx Pacemaker - Immunizations Hx Diphtheria, Pertussis, Tetanus Vaccination: Yes Hx Pneumococcal Vaccination: 11/05/13 Review of Systems - Review of Systems Notes: Constitutional: See HPI HENT: Negative for sore throat. Eyes: Negative for visual changes. Cardiovascular: See HPI. Respiratory: + Cough Gastrointestinal: Negative for abdominal pain, vomiting or diarrhea. Genitourinary: Negative for dysuria. Musculoskeletal: Negative for back pain. Skin: Negative for rash. Neurological: Negative for headaches, weakness or numbness. 10 point ROS negative except as marked above and in HPI. Physical Exam - Vital signs Vitals: Pulse Ox 100 05/12/20 21:41 - Notes Notes: PHYSICAL EXAMINATION: Physical Exam: General: Well-nourished well-developed 69-year-old male in no acute distress HEENT: NC/AT, pupils equal round and reactive to light, MM moist,nares clear, oropharynx clear, airway patent Neck: supple, no adenopathy, no masses. Good range of motion Lungs: clear, no wheezing, no rales no rhonchi CVS: Regular rate and rhythm no murmur gallop or rub Abdomen: Soft, active, nontender, no masses, no hepatosplenomegaly Ext: No edema, clubbing or cyanosis. Neuro: Alert and responsive, moving all 4 extremities on command, cranial nerves intact, no focal findings Skin: Intact no open lesions, no rash Course - Re-evaluation Re-evalutation: 05/12/20 23:49 Patient presenting with a symptom complex concerning for coronavirus infection. Patient will be made a person of interest, he is given instructions to self quarantine until he receives his results. I also reviewed the management of fever and myalgias with the patient prior to discharge. 05/13/20 02:23 Repeat troponin is 0.019 which is less than the original, his chest pain has resolved, patient will be tested for the coronavirus made a person of interest. Patient presents sweating, congestion, cough and body aches. Evaluation chest x-ray and cardiac was also noted to be negative. Given his presentation, coronavirus screening test is being performed. I have instructed the patient th at he will need to self isolate until the received a report of the test results. The patient acknowledges that she has been tested for COVID-19, and will self isolate at home until she receives results. May use Tylenol for fever, aches and pains. He is also instructed to return to the hospital if her symptoms are worsening or development of shortness of breath. - Vital Signs Vital signs: Temp Pulse Resp BP Pulse Ox 100 05/12/20 21:41 - Laboratory Result Diagrams: 05/12/20 22:42 05/12/20 22:42 Laboratory results interpreted by me: 05/12/20 05/12/20 22:42 22:42 RBC 4.32 L Hgb 10.7 L Hct 33.1 L MCV 77 L MCH 24.7 L RDW 14.9 H Plt Count 137 L Carbon Dioxide 32 H BUN 43 H Creatinine 2.36 H Est GFR ( Amer) 33 L Est GFR (MDRD) Non-Af 27 L Glucose 210 H - Diagnostic Test Radiology reviewed: Image reviewed, Reports reviewed Radiology results interpreted by me: 05/13/20 01:08 Chest x-ray: No acute cardiopulmonary findings - EKG Interpretation by Nd EKG shows normal: Sinus rhythm - EKG interpreted by Dr. Mckeon: Normal sinus rhythm, rate 76, ventricular bigeminy, left anterior fascicular block, borderline R wave progression, anterior leads, nonspecific T wave in the lateral leads nonspecific T wave abnormality, no acute ischemic findings, a comparison to a prior EKG performed on 04/08/2020 reveals ventricular bigeminy new since 04/08/2020 Discharge - Discharge Clinical Impression: Suspected COVID-19 virus infection, Chronic renal disease, stage 3, moderately decreased glomerular filtration rate (GFR) between 30-59 mL/min/1.73 square meter, Diabetes mellitus type 2 in nonobese Chest pain Qualifiers: Chest pain type: unspecified Qualified Code(s): R07.9 - Chest pain, unspecified Condition: Good Disposition: HOME, SELF-CARE Instructions: Angina Episode ([facility]), COVID-19 Guidance for Persons Under Investigation Additional Instructions: You were seen with symptoms concerning for the coronavirus infection.Testing chest x-ray is clear. Given the pandemic and coronavirus concerns, your were made a person of interest and a swab was collected and will be sent for COVID-19 evaluation. You will need to self quarantine until you get the results. You may use Tylenol for fever/pain. Please return to the hospital if her symptoms are worsening or development of shortness of breath. Please continue your usual management of chest pain episodes, if your symptoms are worsening or uncontrolled please return to the emergency department for further evaluation and treatment HOME CARE INSTRUCTIONS & INFORMATION: Thank you for choosing us for your medical needs. We hope you're satisfied with the care you received. After you leave, you must properly care for your problem and, at the same time, observe its progress. Any condition can change. Some illnesses can change rapidly over hours or days. If your condition worsens, return to the Emergency Department or see your physician promptly. ABOUT YOUR X-RAYS AND EKG'S: If you had an EKG or X-rays taken, they have been read by the Emergency Physician. The X-rays and EKG's will also be read by a Radiologist or Associate Professor within 24 hours. If discrepancies are noted, you will be notified by telephone. Please be certain the ED has a correct telephone number & address where you can be reached. Also, realize that some fractures or abnormalities do not show up on initial X-rays. If your symptoms continue, see your physician. ABOUT YOUR LABORATORY TEST: If you had laboratory tests, the results have been reviewed by the Emergency Physician. Some test results (for example cultures) may not be available for several days. You will be contacted if any test result shows you need additional treatment. Please be certain the ED has a correct [id number] number and address where you can be reached. ABOUT YOUR MEDICATIONS: You will receive instructions on how to take your medicine on the prescription label you receive. Additional information may be provided by the Pharmacy. If you have questions afterwards, call the ED for clarification or further instructions. Some prescribed medications may cause drowsiness. Do not perform tasks such as driving a car or operating machinery without consulting your Pharmacist. If you feel you need a refill of pain medication, your condition will need re-evaluation. Please do not call for a refill of any medication. ABOUT YOUR SIGNATURE: Signature of this document acknowledges to followin. Understanding that you received emergency treatment and that you may be released before al medical problems are known or treated. Please be certain the ED has a correct phone number & address where you can be reached. 2. Acknowledgement that you will arrange for follow-up care as recommended. 3. Authorization for the Emergency Physician to provide information to your follow-up Physician in order to maximize your care. AT ANY TIME, IF YOUR SYMPTOMS CHANGE SIGNIFICANTLY OR WORSEN OR YOU DEVELOP NEW SYMPTOMS, RETURN TO THE EMERGENCY DEPARTMENT IMMEDIATELY FOR RE-EVALUATION. OUR GOAL IS TO PROVIDE EXCELLENT MEDICAL CARE! WE HOPE THAT WE HAVE MET YOUR EXPECTATIONS DURING YOUR EMERGENCY DEPARTMENT VISIT AND THAT YOU FEEL YOU HAVE RECEIVED EXCELLENT CARE! Referrals: RUFINA LOWRY MD [Primary Care Provider] - Follow up as needed
[2020-05-12] MEDS ORDERED: NORMAL SALINE 1000 ML 1,000 ML IV ONE (23:52)
[2020-05-13 03:06] VITALS: BP 129/73
--- NOTE | 2020-05-13 08:40 | EKG REPORT ---
SEVERITY:- ABNORMAL ECG - SINUS RHYTHM VENTRICULAR BIGEMINY LEFT ANTERIOR FASCICULAR BLOCK BORDERLINE R WAVE PROGRESSION, ANTERIOR LEADS NONSPECIFIC T ABNORMALITIES, LATERAL LEADS : Confirmed by: Alfie López MD 13-May-2020 08:40:00
== END 2020-05-13 03:15 | disposition home or self-care (01) ==
LOC: ER 21:40
DX: R07.9 Chest pain, unspecified (principal); Z20.828 Contact with and (suspected) exposure to other viral communicable diseases; R06.02 Shortness of breath; R19.7 Diarrhea, unspecified; I48.91 Unspecified atrial fibrillation; M79.10 Myalgia, unspecified site; E11.22 Type 2 diabetes mellitus with diabetic chronic kidney disease; I13.0 Hypertensive heart and chronic kidney disease with heart failure and stage 1 through stage 4 chronic kidney disease, or unspecified chronic kidney disease; I50.9 Heart failure, unspecified; N18.3 Chronic kidney disease, stage 3 (moderate)
CPT/HCPCS: 93005; 99285; 96360; 36415; 82553; 82550; 85025; 80053; 84484; 71045; 93010; U0003; J7030; C9803; 87635

== ENCOUNTER 2020-05-13 20:34 | Emergency (ER) | payer MEDICARE, OTHER ==
[2020-05-13 21:18] LABS: ABSOLUTE BASOPHILS # (AUTO) 0.1 10^3/uL (0.0-0.2); ABSOLUTE EOSINOPHILS # (AUTO) 0.1 10^3/uL (0.0-0.6); ABSOLUTE LYMPHOCYTES (AUTO) 1.6 10^3/uL (0.5-4.7); ABSOLUTE MONOCYTES (AUTO) 0.6 10^3/uL (0.1-1.4); ABSOLUTE NEUT (AUTO) 5.3 10^3/uL (1.7-8.2); BASOPHILS % (AUTO) 0.7 % (0-2); EOSINOPHILS % (AUTO) 1.1 % (0-6); HEMATOCRIT 36.5 % (37.9-51.0); HEMOGLOBIN 11.9 g/dL (13.5-17.0); MEAN CORPUSCULAR HEMOGLOBIN 24.7 pg (27.0-33.4); MEAN CORPUSCULAR HGB CONC 32.5 g/dL (32.0-36.0); MEAN CORPUSCULAR VOLUME 76 fl (80-97); MONOCYTES % (AUTO) 8.2 % (3-13); PLATELET COUNT 145 10^3/uL (150-450); TOTAL CELLS COUNTED % (AUTO) 100 %; WHITE BLOOD COUNT 7.6 10^3/uL (4.0-10.5)
[2020-05-13 21:36] LABS: ALBUMIN 4.4 g/dL (3.5-5.0); ALKALINE PHOSPHATASE 67 U/L (38-126); ANION GAP 11 (5-19); ASPARTATE AMINO TRANSFERASE 22 U/L (17-59); BILIRUBIN,DIRECT 0.3 mg/dL (0.0-0.4); BILIRUBIN,TOTAL 0.5 mg/dL (0.2-1.3); BLOOD UREA NITROGEN 38 mg/dL (7-20); CALCIUM 10.1 mg/dL (8.4-10.2); CARBON DIOXIDE 30 mmol/L (22-30); CHLORIDE 101 mmol/L (98-107); CREATINE KINASE 84 U/L (55-170); GLUCOSE 255 mg/dL (75-110); POTASSIUM 3.8 mmol/L (3.6-5.0); TOTAL PROTEIN 7.3 g/dL (6.3-8.2)
[2020-05-13 21:48] LABS: CREATINE KINASE MB 1.23 ng/mL (<4.55); TROPONIN I 0.019 ng/mL
--- NOTE | 2020-05-13 21:59 | EKG REPORT ---
SEVERITY:- ABNORMAL ECG - SINUS RHYTHM VENTRICULAR PREMATURE COMPLEX LEFT ANTERIOR FASCICULAR BLOCK BORDERLINE R WAVE PROGRESSION, ANTERIOR LEADS CONSIDER OLD ANTERIOR AL : Confirmed by: Alfie López MD 13-May-2020 21:58:47
[2020-05-13] MEDS ORDERED: MORPHINE SULFATE 10 MG/ML INJ IV ONE (22:31)
[2020-05-13] MEDS ORDERED: ONDANSETRON HCL INJ/PF 4 MG/2 ML SDV IV ONE (22:31)
--- NOTE | 2020-05-13 22:33 | ER Document Report ---
ED General - General Chief Complaint: Chest Pain > 30 Stated Complaint: CHEST PAIN,NAUSEA,DIARRHEA Time Seen by Provider: 05/13/20 22:05 Primary Care Provider: RUFINA LOWRY MD [Primary Care Provider] - Follow up as needed Notes: Patient is a 69-year-old male that comes emergency department for chief complaint of generalized symptoms since (just over 3 days ago) including initially diarrhea, then cough, chills/sweats, intermittent discomfort in his chest, and vomiting. He has not vomited today but did vomit within the past 24 hours. He states he currently is very nauseated. Patient also states he currently has a gout flare that he is completing prednisone for. He states the pain is mainly in his right foot although he denies that the foot is getting worse, denies increased swelling. Past medical history includes atrial fibrillation on Eliquis and carvedilol, CHF on Bumex, hypertension, chronic kidney disease, type 2 diabetes. Patient was already seen around 1 day ago and has already been COVID-19 tested and this is pending. TRAVEL OUTSIDE OF THE [place] IN LAST 30 DAYS: No - Related Data Allergies/Adverse Reactions: pregabalin [From Lyrica] Allergy (Verified 05/13/20 22:47) promethazine [From Phenergan] Adverse Reaction (Intermediate, Verified 12/28/19 06:25) Dystonia Past Medical History - General Information source: Patient - Social History Smoking Status: Former Smoker Frequency of alcohol use: None Drug Abuse: None Lives with: Family Family History: Reviewed & Not Pertinent, DM, Hypertension Patient has homicidal ideation: No - Past Medical History Cardiac Medical History: Reports: Hx Atrial Fibrillation - Paroxysmal, Hx Conge stive Heart Failure - Systolic; ejection fraction 2017 of approximately 20%., Hx Coronary Artery Disease, Hx Heart Attack - [place] December 2016, Hx Hypercholesterolemia, Hx Hypertension Denies: Hx DVT, Hx Pulmonary Embolism Pulmonary Medical History: Reports: Hx Bronchitis, Hx COPD - Nightly and as needed 2 L oxygen per nasal cannula, Hx Sleep Apnea - Nasal CPAP; pressure 10 Denies: Hx Asthma Neurological Medical History: Denies: Hx Seizures Endocrine Medical History: Reports: Hx Diabetes Mellitus Type 2. Denies: Hx Diabetes Mellitus Type 1, Hx Hyperthyroidism, Hx Hypothyroidism Renal/ Medical History: Reports: Hx Renal Insufficiency. Denies: Hx Peritoneal Dialysis GI Medical History: Reports: Hx Gastroesophageal Reflux Disease, Hx Colonoscopy, Hx Endoscopy. Denies: Hx Cirrhosis Musculoskeletal Medical History: Reports Hx Arthritis, Reports Hx Gout - Primarily affecting left ankle and foot, Reports Hx Musculoskeletal Deformity - Back pain years Psychiatric Medical History: Denies: Hx Depression Infectious Medical History: Denies: Hx C-Diff, Hx MRSA Past Surgical History: Reports: Hx Cardiac Surgery - DEFIB, pt states no. states it was portable, Hx Orthopedic Surgery - right rotator cuff. Denies: Hx Pacemaker - Immunizations Hx Diphtheria, Pertussis, Tetanus Vaccination: Yes Hx Pneumococcal Vaccination: 11/05/13 Review of Systems - Review of Systems Constitutional: See HPI EENT: No symptoms reported Cardiovascular: See HPI Respiratory: See HPI Gastrointestinal: See HPI Genitourinary: No symptoms reported Male Genitourinary: No symptoms reported Musculoskeletal: See HPI Skin: No symptoms reported Hematologic/Lymphatic: No symptoms reported Neurological/Psychological: No symptoms reported Physical Exam - Vital signs Vitals: Temp Pulse Resp BP Pulse Ox 97.6 F 83 14 129/66 H 100 05/13/20 20:52 05/13/20 20:52 05/13/20 20:52 05/13/20 20:52 05/13/20 20:52 - Notes Notes: GENERAL: Alert, interacts well. No acute distress. HEAD: Normocephalic, atraumatic. EYES: Pupils equal, round, and reactive to light. Extraocular movements intact. ENT: Oral mucosa moist, tongue midline. Oropharynx unremarkable. Airway patent. NECK: Full range of motion. Supple. Trachea midline. No lymphadenopathy. LUNGS: Clear to auscultation bilaterally, no wheezes, rales, or rhonchi. No respiratory distress. Non-tender chest wall. HEART: Regular rate and rhythm. No murmur ABDOMEN: Soft, non-tender. Non-distended. EXTREMITIES: Moves all 4 extremities spontaneously. No edema, normal radial and dorsalis pedis pulses bilaterally. No cyanosis. There is tenderness and warmth along the dorsal lateral aspect of the right foot over the MTP areas. Normal cap refill and sensation, no overt erythema, no severe tenderness, patient ambulates without difficulty, otherwise unremarkable extremity exams. BACK: no cervical, thoracic, lumbar midline tenderness. No saddle anesthesia, normal distal neurovascular exam. Moves all extremities in full range of motion. NEUROLOGICAL: Alert and oriented x3. Normal speech. Cranial nerves II through XII grossly intact. Strength 5/5 in all extremities. PSYCH: Normal affect, normal mood. SKIN: Warm, dry, normal turgor. No rashes or lesions noted. Course - Re-evaluation Re-evalutation: Patient mainly complaining of right foot pain on my evaluation, this is minimally warm, not erythematous, and it is tender but patient ambulates on the foot without any difficulty. Patient also complaining of cough, vomiting, diarrhea, generalized sick symptoms. He Mushtaq has a COVID-19 test pending. Chest x-ray unremarkable again, troponin not elevated, patient already had 2 troponin tests within the past 24 hours which were not elevated, very low suspicion of ACS. Patient is not hypoxic, not in respiratory distress, tolerating p.o. without any difficulty, on reevaluation after medications patient has no complaints, smiling and well-appearing. He states he is ready for discharge. He will be provided with nausea medication, Dosepak for his suspected gout, he is already on treatment for gout flare. Discussed follow-up and return precautions. Patient states understanding and agreement. Stable and well-appearing at time of discharge. - Vital Signs Vital signs: Temp Pulse Resp BP Pulse Ox 97.5 F 83 17 107/74 97 05/14/20 01:01 05/13/20 20:52 05/14/20 01:01 05/14/20 01:01 05/14/20 01:01 - Laboratory Result Diagrams: 05/13/20 20:58 05/13/20 20:58 Laboratory results interpreted by me: 05/13/20 05/13/20 20:58 20:58 Hgb 11.9 L Hct 36.5 L MCV 76 L MCH 24.7 L RDW 15.0 H Plt Count 145 L BUN 38 H Creatinine 2.21 H Est GFR ( Amer) 36 L Est GFR (MDRD) Non-Af 29 L Glucose 255 H - EKG Interpretation by Me Additional EKG results interpreted by me: EKG shows sinus rhythm at a rate of 81, QTc 465, PVCs noted. No T wave inversions or ST segment changes in consecutive leads. Left anterior fascicular block. Discharge - Discharge Clinical Impression: Cough, Chest discomfort, Vomiting and diarrhea, Person under investigation for COVID-19 Condition: Stable Disposition: HOME, SELF-CARE Additional Instructions: Your work-up does not show any concerning findings. You will be contacted with your COVID-19 test results, please quarantine while you are waiting list. Take nausea medication if needed as prescribed, you have been provided with some pain medication to take for your foot, follow-up with your primary care provider for additional management. Return to the Emergency Department if you worsen including uncontrolled vomiting, developing fever, difficulty breathing, or any other concerning or worsening symptoms. As a person under investigation for COVID-19, the [place] Department of Health and Human Services (division on public health) advises you to adhere to the following guidance until your test results are reported to you. If your test result is positive, you will receive additional information from your provider and your local health department at that time. Remain at home until you are cleared by the health provider or public health authorities. Keep a log of visitors to your home, notify any visitors to your home of your isolation status. If you plan to move to a new address or leave the [facility], notify the local health department in your County. Call your Doctor or seek care if you have an urgent medical need. Before seeking medical care, call him to get instructions from the provider before arriving at the medical office, clinic, or hospital. Notify them that you are being tested for the virus (COVID-19) so that arrangements can be made, as necessary, to prevent transmission to others in the healthcare setting. Next, notify the local health department in your county. If a medical emergency arises and you need to call 911, inform the first responders that you are being tested for the virus that causes COVID-19. Next, notify the local health department in your county. Prescriptions: Ondansetron [Zofran Odt 4 mg Tablet] 1 - 2 tab PO Q4H PRN #15 tab.rapdis PRN Reason: For Nausea/Vomiting Referrals: RUFINA LOWRY MD [Primary Care Provider] - Follow up as needed
--- NOTE | 2020-05-13 23:28 | RADIOLOGY REPORT (SQ) ---
EXAM DESCRIPTION: XR CHEST 1 VIEW COMPLETED DATE/TME: 05/13/2020 22:31 CLINICAL HISTORY: 69 years Male worsening cough, COVID-19 test pending COMPARISON: 05/12/2020. FINDINGS: The cardiomediastinal silhouette appears unremarkable. No consolidating infiltrates or pleural effusions. No pneumothorax. IMPRESSION: No acute abnormality is identified. No pulmonary opacities identified. Please note that chest radiographs have low sensitivity for subtle groundglass opacities.
[2020-05-14] MEDS ORDERED: HYDROCODONE/ACETAMINOPHEN 5-325 MG (6 TAB/ER DISP) PO PRN (00:45)
[2020-05-14] MEDS ORDERED: ONDANSETRON ODT 4 MG TAB (6 TAB/ER DISP) PO PRN (00:48)
[2020-05-14 01:19] VITALS: BP 107/74
== END 2020-05-14 01:24 | disposition home or self-care (01) ==
LOC: ER 20:34
DX: R19.7 Diarrhea, unspecified (principal); R05 Cough; R61 Generalized hyperhidrosis; R68.83 Chills (without fever); R07.9 Chest pain, unspecified; R11.2 Nausea with vomiting, unspecified; M10.9 Gout, unspecified; M79.671 Pain in right foot; I48.0 Paroxysmal atrial fibrillation; I11.0 Hypertensive heart disease with heart failure; I50.20 Unspecified systolic (congestive) heart failure; I25.10 Atherosclerotic heart disease of native coronary artery without angina pectoris; I25.2 Old myocardial infarction; J44.9 Chronic obstructive pulmonary disease, unspecified; E11.9 Type 2 diabetes mellitus without complications; Z79.01 Long term (current) use of anticoagulants; Z79.899 Other long term (current) drug therapy; Z88.6 Allergy status to analgesic agent; Z87.891 Personal history of nicotine dependence
CPT/HCPCS: 93005; 99285; 96374; 96375; 36415; 82553; 82550; 85025; 80053; 84484; 71045; 93010; J2270; J2405; A9270 ×2

== ENCOUNTER → 2020-05-25 | Outpatient (CLI) | payer MEDICARE, OTHER ==
[2020-05-25 09:26] LABS: ALBUMIN 4.2 g/dL (3.5-5.0); ALKALINE PHOSPHATASE 65 U/L (38-126); ASPARTATE AMINO TRANSFERASE 21 U/L (17-59); BILIRUBIN,DIRECT 0.4 mg/dL (0.0-0.4); BILIRUBIN,TOTAL 0.6 mg/dL (0.2-1.3); CHOLESTEROL 287.92 mg/dL (0-200); TOTAL PROTEIN 6.9 g/dL (6.3-8.2); TRIGLYCERIDES 313 mg/dL (<150)
[2020-05-25 09:37] LABS: DIRECT LDL 159 mg/dL (<100)
[2020-05-25 09:39] LABS: VLDL CHOLESTEROL 62.6 mg/dL (10-31)
== END ==
LOC: OD 07:58
PROVIDERS: ATTEND Specialist
DX: I47.1 Supraventricular tachycardia (principal); I13.0 Hypertensive heart and chronic kidney disease with heart failure and stage 1 through stage 4 chronic kidney disease, or unspecified chronic kidney disease; I50.22 Chronic systolic (congestive) heart failure; I42.0 Dilated cardiomyopathy; I34.0 Nonrheumatic mitral (valve) insufficiency; E11.22 Type 2 diabetes mellitus with diabetic chronic kidney disease; N18.3 Chronic kidney disease, stage 3 (moderate); I47.2 Ventricular tachycardia; E78.49 Other hyperlipidemia; I48.0 Paroxysmal atrial fibrillation; G47.30 Sleep apnea, unspecified; R60.9 Edema, unspecified; K21.9 Gastro-esophageal reflux disease without esophagitis; R94.30 Abnormal result of cardiovascular function study, unspecified; Z79.899 Other long term (current) drug therapy
CPT/HCPCS: 36415; 80061; 80076; 83036

== ENCOUNTER → 2020-08-08 | Outpatient (CLI) | payer MEDICARE, OTHER ==
[2020-08-08 08:42] LABS: ABSOLUTE BASOPHILS # (AUTO) 0.1 10^3/uL (0.0-0.2); ABSOLUTE EOSINOPHILS # (AUTO) 0.1 10^3/uL (0.0-0.6); ABSOLUTE LYMPHOCYTES (AUTO) 1.6 10^3/uL (0.5-4.7); ABSOLUTE MONOCYTES (AUTO) 0.7 10^3/uL (0.1-1.4); BASOPHILS % (AUTO) 1.3 % (0-2); EOSINOPHILS % (AUTO) 1.6 % (0-6); HEMATOCRIT 34.1 % (37.9-51.0); HEMOGLOBIN 10.5 g/dL (13.5-17.0); LYMPHOCYTES % (AUTO) 25.3 % (13-45); MEAN CORPUSCULAR HEMOGLOBIN 24.4 pg (27.0-33.4); MEAN CORPUSCULAR HGB CONC 30.8 g/dL (32.0-36.0); MEAN CORPUSCULAR VOLUME 79 fl (80-97); MONOCYTES % (AUTO) 10.3 % (3-13); PLATELET COUNT 183 10^3/uL (150-450); SEGMENTED NEUTROPHILS % (AUTO) 61.5 % (42-78); TOTAL CELLS COUNTED % (AUTO) 100 %; WHITE BLOOD COUNT 6.5 10^3/uL (4.0-10.5)
[2020-08-08 09:04] LABS: ALBUMIN 4.5 g/dL (3.5-5.0); ANION GAP 7 (5-19); BLOOD UREA NITROGEN 34 mg/dL (7-20); CALCIUM 10.4 mg/dL (8.4-10.2); CARBON DIOXIDE 33 mmol/L (22-30); CHLORIDE 101 mmol/L (98-107); GLUCOSE 233 mg/dL (75-110); PHOSPHORUS 3.8 mg/dL (2.5-4.5); POTASSIUM 4.2 mmol/L (3.6-5.0)
[2020-08-08 09:31] LABS: APPEARANCE,URINE CLEAR; BILIRUBIN,URINE NEGATIVE (NEGATIVE); COLOR,URINE YELLOW; GLUCOSE, URINE 150 mg/dL (NEGATIVE); KETONES,URINE NEGATIVE (NEGATIVE); PROTEIN,URINE 30 mg/dL (NEGATIVE); URINE SPECIFIC GRAVITY 1.016; UROBILINOGEN,URINE NEGATIVE mg/dL (<2.0)
[2020-08-09 13:37] LABS: CREATININE URINE 139.4 mg/dL (Not Estab.); MICROALBUMIN URINE 29.5 ug/mL (Not Estab.)
== END ==
LOC: OD 08:16
PROVIDERS: ATTEND Internal Medicine Nephrology
DX: N18.30 Chronic kidney disease, stage 3 unspecified (principal); D63.1 Anemia in chronic kidney disease; R97.20 Elevated prostate specific antigen [PSA]
CPT/HCPCS: 36415; 80069; 81001; 82043; 82306; 82570; 83970; 84153; 85025

== ENCOUNTER 2020-08-17 11:40 | Observation (INO) | payer MEDICARE, OTHER ==
[2020-08-17 13:24] LABS: ABSOLUTE BASOPHILS # (AUTO) 0.1 10^3/uL (0.0-0.2); ABSOLUTE EOSINOPHILS # (AUTO) 0.1 10^3/uL (0.0-0.6); ABSOLUTE LYMPHOCYTES (AUTO) 1.4 10^3/uL (0.5-4.7); ABSOLUTE MONOCYTES (AUTO) 0.6 10^3/uL (0.1-1.4); ABSOLUTE NEUT (AUTO) 4.4 10^3/uL (1.7-8.2); BASOPHILS % (AUTO) 1.1 % (0-2); HEMATOCRIT 30.1 % (37.9-51.0); HEMOGLOBIN 9.3 g/dL (13.5-17.0); LYMPHOCYTES % (AUTO) 21.3 % (13-45); MEAN CORPUSCULAR HEMOGLOBIN 24.6 pg (27.0-33.4); MEAN CORPUSCULAR VOLUME 80 fl (80-97); MONOCYTES % (AUTO) 8.6 % (3-13); PLATELET COUNT 119 10^3/uL (150-450); RED BLOOD COUNT 3.79 10^6/uL (4.35-5.55); RED CELL DISTRIBUTION WIDTH 15.9 % (11.5-14.0); TOTAL CELLS COUNTED % (AUTO) 100 %; WHITE BLOOD COUNT 6.5 10^3/uL (4.0-10.5)
[2020-08-17 13:35] LABS: ALBUMIN 3.5 g/dL (3.5-5.0); ALKALINE PHOSPHATASE 63 U/L (38-126); ANION GAP 6 (5-19); ASPARTATE AMINO TRANSFERASE 21 U/L (17-59); BILIRUBIN,DIRECT 0.2 mg/dL (0.0-0.4); BILIRUBIN,TOTAL 0.6 mg/dL (0.2-1.3); BLOOD UREA NITROGEN 46 mg/dL (7-20); CALCIUM 10.1 mg/dL (8.4-10.2); CARBON DIOXIDE 30 mmol/L (22-30); CHLORIDE 101 mmol/L (98-107); GLUCOSE 325 mg/dL (75-110); POTASSIUM 4.1 mmol/L (3.6-5.0); TOTAL PROTEIN 6.3 g/dL (6.3-8.2)
--- NOTE | 2020-08-17 14:17 | ER Document Report ---
ED Medical Screen (RME) - General Chief Complaint: Low Blood Pressure Stated Complaint: FOOT PAIN Time Seen by Provider: 08/17/20 14:04 Primary Care Provider: NIRALI SERRANO MD [Primary Care Provider] - Follow up as needed Information source: Patient Notes: Patient presents complaining of right upper extremity and right lower extremity pain and numbness. Patient states he has had some dizziness today. Patient reports that he has had occasional shortness of breath and felt faint at home. Patient denies any chest pain. Patient does have neuropathy. Patient states that he was concerned he might have a stroke and wanted to be evaluated for this. Patient does have a history of A. fib, diabetes, CAD, CHF, hypertension and dyslipidemia. I have greeted and performed a rapid initial assessment of this patient. A comprehensive ED assessment and evaluation of the patient, analysis of test results and completion of the medical decision making process will be conducted by additional ED providers. TRAVEL OUTSIDE OF THE [place] IN LAST 30 DAYS: No - Related Data Allergies/Adverse Reactions: pregabalin [From Lyrica] Allergy (Verified 05/13/20 22:47) promethazine [From Phenergan] Adverse Reaction (Intermediate, Verified 12/28/19 06:25) Dystonia Home Medications: carvedilol 6.25 bd, isosorbide/hydralazine 20-375.mg bid, cozaar/losartan 25 BID Past Medical History - Past Medical History Cardiac Medical History: Reports: Hx Atrial Fibrillation - Paroxysmal, Hx Congestive Heart Failure - Systolic; ejection fraction 2017 of approximately 20%., Hx Coronary Artery Disease, Hx Heart Attack - [place] December 2016, Hx Hyperchol esterolemia, Hx Hypertension Denies: Hx DVT, Hx Pulmonary Embolism Pulmonary Medical History: Reports: Hx Bronchitis, Hx COPD - Nightly and as needed 2 L oxygen per nasal cannula, Hx Sleep Apnea - Nasal CPAP; pressure 10 Denies: Hx Asthma Neurological Medical History: Denies: Hx Seizures Endocrine Medical History: Reports: Hx Diabetes Mellitus Type 2. Denies: Hx Diabetes Mellitus Type 1, Hx Hyperthyroidism, Hx Hypothyroidism Renal/ Medical History: Reports: Hx Renal Insufficiency. Denies: Hx Peritoneal Dialysis GI Medical History: Reports: Hx Gastroesophageal Reflux Disease, Hx Colonoscopy, Hx Endoscopy. Denies: Hx Cirrhosis Musculoskeltal Medical History: Reports Hx Arthritis, Reports Hx Gout - Primarily affecting left ankle and foot, Reports Hx Musculoskeletal Deformity - Back pain years Psychiatric Medical History: Denies: Hx Depression Infectious Medical History: Denies: Hx C-Diff, Hx MRSA Past Surgical History: Reports: Hx Cardiac Surgery - DEFIB, pt states no. states it was portable, Hx Orthopedic Surgery - right rotator cuff. 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 Course - Vital Signs Vital signs: Temp Pulse Resp BP Pulse Ox 98.0 F 20 106/65 97 08/17/20 12:02 08/17/20 14:01 08/17/20 14:01 08/17/20 14:01 - Laboratory Results Result Diagrams: 08/17/20 12:00 08/17/20 12:00 Laboratory Results Interpreted: 08/17/20 08/17/20 12:00 12:00 RBC 3.79 L Hgb 9.3 L Hct 30.1 L MCH 24.6 L MCHC 31.0 L RDW 15.9 H Plt Count 119 L Sodium 136.5 L BUN 46 H Creatinine 2.80 H Est GFR ( Amer) 27 L Est GFR (MDRD) Non-Af 22 L Glucose 325 H Doctor's Discharge - Discharge Referrals: NIRALI SERRANO MD [Primary Care Provider] - Follow up as needed
--- NOTE | 2020-08-17 15:05 | RADIOLOGY REPORT (SQ) ---
EXAM DESCRIPTION: CHEST SINGLE VIEW IMAGES COMPLETED DATE/TIME: 08/17/2020 2:43 pm REASON FOR STUDY: dizziness COMPARISON: AP view of the chest from 05/13/2020. EXAM PARAMETERS: NUMBER OF VIEWS: One view. TECHNIQUE: An AP view of the chest was obtained. RADIATION DOSE: NA LIMITATIONS: None. FINDINGS: LUNGS AND PLEURA: No consolidation, pleural effusion or pneumothorax. MEDIASTINUM AND HILAR STRUCTURES: No mediastinal or hilar contour abnormality. HEART AND VASCULAR STRUCTURES: The cardiac silhouette and pulmonary vasculature are within normal [place] its. BONES: No acute findings. HARDWARE: None in the chest. OTHER: No other finding. IMPRESSION: No acute cardiopulmonary process. TECHNICAL DOCUMENTATION: JOB ID: [id number] 2010 [employer]- All Rights Reserved Reading location - IP/workstation name: [email or web address]
--- NOTE | 2020-08-17 15:08 | RADIOLOGY REPORT (SQ) ---
EXAM DESCRIPTION: CT HEAD WITHOUT IMAGES COMPLETED DATE/TIME: 08/17/2020 2:44 pm REASON FOR STUDY: R side pain, numbness COMPARISON: CT of the head without contrast from 04/08/2020. TECHNIQUE: Axial images acquired through the brain without intravenous contrast. Images reviewed wi th bone, brain and subdural windows. Additional sagittal and coronal reconstructions were generated. Images stored on PACS. All CT scanners at this facility use dose modulation, iterative reconstruction, and/or weight based d osing when appropriate to reduce radiation dose to as low as reasonably achievable (ALARA). [facility]: Dose Right [facility]: CareDose [facility]: Dose Right [facility]: Teradose 4D [facility]: [email or web address] RADIATION DOSE: CT Rad equipment meets quality standard of care and radiation dose reduction techniq ues were employed. CTDIvol: 53.2 mGy. DLP: 1017 mGy-cm. LIMITATIONS: None. FINDINGS: Stable left parietoccipital arachnoid cyst ; the degree of mass effect upon the adjacent p arenchyma is also unchanged. There is no acute intracranial hemorrhage, vascular territorial infarct , extra-axial fluid collection or midline shift. The reilly-white matter differentiation is preserved. The caliber of the ventricles is concordant with the degree of sulcation and unchanged compared to the CT from 04/08/2020. There is no effacement of the basal subarachnoid cisterns. The orbits and globes are intact. The paranasal sinuses and the mastoid air cells are clear. There is no fracture of the calvarium. IMPRESSION: 1. No acute intracranial abnormality. 2. Stable large left parietoccipital arachnoid cyst. EVIDENCE OF ACUTE STROKE: NO. COMMENT: Quality ID # [id number]: Final reports with documentation of one or more dose reduction techniques (e.g., Automated exposure control, adjustment of the mA and/or kV according to patient size, use of iterative reconstruction technique) TECHNICAL DOCUMENTATION: JOB ID: [id number] 2010 [employer]- All Rights Reserved Reading location - IP/workstation name: [email or web address]
--- NOTE | 2020-08-17 16:50 | ER Document Report ---
ED General - General Chief Complaint: Low Blood Pressure Stated Complaint: FOOT PAIN Time Seen by Provider: 08/17/20 14:04 TRAVEL OUTSIDE OF THE [place] IN LAST 30 DAYS: No - HPI Notes: Patient is a 69-year-old male who presents with an episode of dizziness this morning as well as right arm and foot pain. Patient states he has had numbness in his right arm and his right lower extremity for many years. He states he has developed pain in his right arm and right leg as well. He mentions today he was lightheaded and was seeing spots. EMS was called and patient's blood pressure was very low. From reports, it was in the 70s systolic and in the 50s systolic. He was given fluids by EMS. Patient's blood pressure improved. He states that he still feels slightly lightheaded when he sits up. Patient denies any trauma to his extremities. He does have a history of a previous stroke. That the numbness is not new and has been there for many years but the pain in his arm and his leg is new. - Related Data Allergies/Adverse Reactions: pregabalin [From Lyrica] Allergy (Verified 05/13/20 22:47) promethazine [From Phenergan] Adverse Reaction (Intermediate, Verified 12/28/19 06:25) Dystonia Home Medications: carvedilol 6.25 bd, isosorbide/hydralazine 20-375.mg bid, cozaar/losartan 25 BID Past Medical History - General Information source: Patient - Social History Smoking Status: Unknown if Ever Smoked Family History: Reviewed & Not Pertinent, DM, Hypertension - Past Medical History Cardiac Medical History: Reports: Hx Atrial Fibrillation - Paroxysmal, Hx Congestive Heart Failure - Systolic; ejection fraction 2017 of approximately 20%., Hx Coronary Artery Disease, Hx Heart Attack - [place] December 2016, Hx Hypercholesterolemia, Hx Hypertension Denies: Hx DVT, Hx Pulmonary Embolism Pulmonary Medical History: Reports: Hx Bronchitis, Hx COPD - Nightly and as needed 2 L oxygen per nasal cannula, Hx Sleep Apnea - Nasal CPAP; pressure 10 Denies: Hx Asthma Neurological Medical History: Denies: Hx Seizures Endocrine Medical History: Reports: Hx Diabetes Mellitus Type 2. Denies: Hx Diabetes Mellitus Type 1, Hx Hyperthyroidism, Hx Hypothyroidism Renal/ Medical History: Reports: Hx Renal Insufficiency. Denies: Hx Peritoneal Dialysis GI Medical History: Reports: Hx Gastroesophageal Reflux Disease, Hx Colonoscopy, Hx Endoscopy. Denies: Hx Cirrhosis Musculoskeletal Medical History: Reports Hx Arthritis, Reports Hx Gout - Primarily affecting left ankle and foot, Reports Hx Musculoskeletal Deformity - Back pain years Psychiatric Medical History: Denies: Hx Depression Infectious Medical History: Denies: Hx C-Diff, Hx MRSA Past Surgical History: Reports: Hx Cardiac Surgery - DEFIB, pt states no. states it was portable, Hx Orthopedic Surgery - right rotator cuff. Denies: Hx Pacemaker - Immunizations Hx Diphtheria, Pertussis, Tetanus Vaccination: Yes Hx Pneumococcal Vaccination: 11/05/13 Review of Systems - Review of Systems Notes: CONSTITUTIONAL: No fever, fatigue or weight loss. SKIN: No rash. HENT: No congestion, ear pain, or sore throat. EYES: No recent vision problems or eye pain. CARDIOVASCULAR: No chest pain or edema. RESPIRATORY: No cough, shortness of breath, congestion, or wheezing. GASTROINTESTINAL: No abdominal pain, nausea, vomiting, bloody stools or diarrhea. GENITOURINARY: No dysuria. MUSCULOSKELETAL: No joint pain or swelling. NEUROLOGIC: No seizures. No headache, focal weakness or sensory changes. Positive for lightheadedness. HEMATOLOGIC: No unusual bruising or bleeding. PSYCHIATRIC: No depression or anxiety. Physical Exam - Vital signs Vitals: Resp Pulse Ox 19 100 08/17/20 11:56 08/17/20 11:56 - General General appearance: Appears well Notes: VITAL SIGNS: Within normal limits. GENERAL: No acute distress, non-toxic appearance. HEAD: Normal with no signs of head trauma. EYES: EOMI, conjunctiva normal, no discharge. EARS: Hearing grossly intact. NOSE: Normal. NECK: Normal range of motion, no tenderness, supple, no lymphadenopathy, No adenopathy, no JVD. CHEST: Clear breath sounds bilaterally. No wheezes, rales, or rhonchi. CARDIAC: Regular rate and rhythm. S1 and S2, without murmurs, gallops, or rubs. VASCULAR: No Edema. ABDOMEN: Normal and soft with no tenderness GENITOURINARY: Normal, No tenderness MUSCULOSKELETAL: Good range of motion of all major joints. Good range of motion of right ankle and foot and wrist. No obvious trauma. NEUROLOGICAL: Alert and oriented x 3. No focal sensory or strength deficits. Speech normal. Follows commands appropriately. Patient has no focal neurological deficits. He is moving all of his extremities. Lightheaded with sitting up. PSYCHIATRIC: Normal Affect, judgement and mood. SKIN: Normal appearance with no rashes or lesions. Course - Re-evaluation Re-evalutation: 08/18/20 01:52 Patient's work-up was reviewed. He states he has not been drinking enough water. Possibly, his symptoms could be due to dehydration as he improved with fluids. I did obtain x-rays of his extremities with the pain he is having. There was no trauma. I discussed with the hospitalist to see if he could bring him in for observation as he is still lightheaded. His blood pressure has improved. Patient will be admitted. He is very agreeable to this. - Vital Signs Vital signs: Temp Pulse Resp BP Pulse Ox 97.9 F 80 17 114/70 93 08/17/20 22:00 08/17/20 21:09 08/17/20 21:09 08/17/20 21:09 08/17/20 21:09 - Laboratory Results Result Diagrams: 08/17/20 12:00 08/17/20 12:00 Laboratory Results Interpreted: 08/17/20 08/17/20 12:00 12:00 RBC 3.79 L Hgb 9.3 L Hct 30.1 L MCH 24.6 L MCHC 31.0 L RDW 15.9 H Plt Count 119 L Sodium 136.5 L BUN 46 H Creatinine 2.80 H Est GFR ( Amer) 27 L Est GFR (MDRD) Non-Af 22 L Glucose 325 H Critical Laboratory Results Reviewed: No Critical Results - Radiology Results Critical Radiology Results Reviewed: No Critical Results Discharge - Discharge Clinical Impression: Lightheaded Hypotension Qualifiers: Hypotension type: unspecified hypotension type Qualified Code(s): I95.9 - Hypotension, unspecified Condition: Stable Disposition: ADMITTED OBSERVATION Admitting Provider: Anneliese (Hospitalist) Unit Admitted: Telemetry
--- NOTE | 2020-08-17 17:48 | RADIOLOGY REPORT (SQ) ---
EXAM DESCRIPTION: ANKLE RIGHT COMPLETE; FOOT RIGHT COMPLETE IMAGES COMPLETED DATE/TIME: 08/17/2020 4:12 pm REASON FOR STUDY: pain, no known trauma COMPARISON: None. NUMBER OF VIEWS: Six views. TECHNIQUE: AP, lateral, and oblique radiographic images acquired of the right foot and ankle. LIMITATIONS: None. FINDINGS: MINERALIZATION: Normal. BONES: No acute fracture or cortical disruption. Moderate osteoarthritis at the midfoot. Moderate p lantar calcaneal spur. Moderate hallux valgus deformity. JOINTS: Small periarticular erosions noted at the 1st digit metatarsophalangeal joint space. Normal ankle mortise alignment. No ankle joint effusion. SOFT TISSUES: Soft tissue swelling at the 1st digit metatarsophalangeal joint space. OTHER: No other significant finding. IMPRESSION: 1. No acute fracture or dislocation of the right foot or ankle. 2. Moderate hallux valgus deformity with associated degenerative change and soft tissue swelling at t he joint space. This also can be seen with gout. 3. Small plantar calcaneal spur which can be seen with plantar fasciitis. TECHNICAL DOCUMENTATION: JOB ID: [id number] 2010 [employer]- All Rights Reserved Reading location - IP/workstation name: [email or web address]
--- NOTE | 2020-08-17 17:48 | RADIOLOGY REPORT (SQ) ---
EXAM DESCRIPTION: ANKLE RIGHT COMPLETE; FOOT RIGHT COMPLETE IMAGES COMPLETED DATE/TIME: 08/17/2020 4:12 pm REASON FOR STUDY: pain, no known trauma COMPARISON: None. NUMBER OF VIEWS: Six views. TECHNIQUE: AP, lateral, and oblique radiographic images acquired of the right foot and ankle. LIMITATIONS: None. FINDINGS: MINERALIZATION: Normal. BONES: No acute fracture or cortical disruption. Moderate osteoarthritis at the midfoot. Moderate p lantar calcaneal spur. Moderate hallux valgus deformity. JOINTS: Small periarticular erosions noted at the 1st digit metatarsophalangeal joint space. Normal ankle mortise alignment. No ankle joint effusion. SOFT TISSUES: Soft tissue swelling at the 1st digit metatarsophalangeal joint space. OTHER: No other significant finding. IMPRESSION: 1. No acute fracture or dislocation of the right foot or ankle. 2. Moderate hallux valgus deformity with associated degenerative change and soft tissue swelling at t he joint space. This also can be seen with gout. 3. Small plantar calcaneal spur which can be seen with plantar fasciitis. TECHNICAL DOCUMENTATION: JOB ID: [id number] 2010 [employer]- All Rights Reserved Reading location - IP/workstation name: [email or web address]
--- NOTE | 2020-08-17 17:49 | RADIOLOGY REPORT (SQ) ---
EXAM DESCRIPTION: WRIST RIGHT 3 VIEWS IMAGES COMPLETED DATE/TIME: 08/17/2020 4:12 pm REASON FOR STUDY: pain, no known trauma COMPARISON: None. NUMBER OF VIEWS: Three views. TECHNIQUE: AP, lateral, and oblique radiographic images acquired of the right wrist. LIMITATIONS: None. FINDINGS: MINERALIZATION: Normal. BONES: No acute fracture or dislocation. No worrisome bone lesions. Normal alignment. SOFT TISSUES: No soft tissue swelling. No foreign body. OTHER: No other significant finding. IMPRESSION: No acute fracture or dislocation of the right wrist. TECHNICAL DOCUMENTATION: JOB ID: [id number] [employer]- All Rights Reserved Reading location - IP/workstation name: [email or web address]
[2020-08-17] MEDS ORDERED: ACETAMINOPHEN 325 MG TABLET PO PRN (18:49)
[2020-08-17] MEDS ORDERED: MAG HYDROX/AL HYDROX/SIMETH SUSP 30 ML UDCUP PO PRN (18:49)
[2020-08-17] MEDS ORDERED: NITROGLYCERIN 0.4 MG/TAB 25 TAB/BOTTLE SL PRN (18:49)
--- NOTE | 2020-08-17 19:26 | PDOC H&P ---
History of Present Illness Admission Date/PCP: NIRALI SERRANO MD Patient complains of: Lightheaded with abnormal sensation right foot and right hand History of Present Illness: BAM MORRISON is a 69 year old male who is a poor historian. He has a history of heart failure, diabetes mellitus type 2, hypertension and chronic kidney disease who was in his usual state of health yesterday. When he woke this morning he began to notice numbness and tingling in his right hand and right foot. He does have a history of gout and I believe he was trying to describe diabetic neuropathy. He also has a very large left parieto-occipital arachnoid cyst that is unchanged from April. He was noted to be hypotensive and was told he was dehydrated by EMS who subsequently transported him to the emergency department. It appears that 1 L of fluid was given. This was likely started by EMS as there is no fluid order in the electronic record. Laboratory studies wer e drawn. His creatinine is slightly above his baseline which usually runs at approximately 2.2. BUN is slightly elevated at 46. Glucose is markedly elevated at 325. He is slightly more anemic than usual with a hemoglobin of 9.3. Chest x-ray showed no evidence of heart failure. CT scan showed the extremely large left parieto-occipital arachnoid cyst that is unchanged from April of this year. Past Medical History Cardiac Medical History: Reports: Atrial Fibrillation - Paroxysmal, Congestive Heart Failure - Systolic; ejection fraction 2016 of approximately 20%., Coronary Artery Disease, Myocardial Infarction - [place] December 2016, Hyperlipidema, Hyperte nsion Denies: DVT, Pulmonary Embolism Pulmonary Medical History: Reports: Bronchitis, Chronic Obstructive Pulmonary Disease (COPD) - Nightly and as needed 2 L oxygen per nasal cannula, Sleep Apnea - Nasal CPAP; pressure 10 Denies: Asthma Neurological Medical History: Denies: Seizures Endocrine Medical History: Reports: Diabetes Mellitus Type 2 Denies: Diabetes Mellitus Type 1, Hyperthyroidism, Hypothyroidism GI Medical History: Reports: Gastroesophageal Reflux Disease Denies: Cirrhosis Musculoskeltal Medical History: Reports: Arthritis, Gout - Primarily affecting left ankle and foot Psychiatric Medical History: Denies: Depression Hematology: Reports: Anemia - Followed by Dr. Wilson; recent total GI workup. Infectious Medical History: Denies: Clostridium Difficile, Methicillin-Resistant Staph Aureus Past Surgical History Past Surgical History: Reports: Orthopedic Surgery - right rotator cuff Denies: Pacemaker Social History Information Source: Patient, [facility] Records Lives with: Spouse/Significant other Smoking Status: Never Smoker Electronic Cigarette use?: No Frequency of Alcohol Use: None Hx Recreational Drug Use: No Drugs: None Hx Prescription Drug Abuse: No - Advance Directive Resuscitation Status: Full Code Surrogate healthcare decision maker:: Patient's Evy Family History Family History: Reviewed & Not Pertinent, DM, Hypertension Parental Family History Reviewed: Yes Children Family History Reviewed: Yes Sibling(s) Family History Reviewed.: Yes Medication/Allergy Home Medications: Aspirin [Adult Low Dose Aspirin EC] 81 mg PO DAILY 03/04/18 Atorvastatin Calcium [Lipitor 40 mg Tablet] 40 mg PO QHS 03/04/18 Bumetanide [Bumex 0.5 mg Tablet] 1 mg PO BID 03/04/18 Calcitriol [Rocaltrol 0.25 mcg Capsule] 0.25 mcg PO MOWEFR 03/04/18 Cholecalciferol (Vitamin D3) [Vitamin D3 1000 Unit Tablet] 1,000 unit PO DAILY 03/04/18 Cyanocobalamin (Vitamin B-12) [Vitamin B-12] 1,000 mcg SL DAILY 03/04/18 Glimepiride [Amaryl 4 mg Tablet] 4 mg PO DAILY 03/04/18 Isosorb Dinit/Hydralazine HCl [Bidil 20-37.5 mg Tablet] 0.5 mg PO BID 03/04/18 Nitroglycerin [Nitrostat 0.4 mg (1/150 Gr) Tabs 25/Bottle] 0.4 mg SL Q5MP PRN 03/04/18 Apixaban [Eliquis] 2.5 mg PO Q12 #60 tablet 03/08/18 Carvedilol [Coreg 6.25 mg Tablet] 6.25 mg PO Q12 #60 tablet 03/08/18 Dulaglutide [Trulicity] 0.75 mg SQ ASDIR 12/24/18 Lidocaine [Lidoderm 5% (700 mg) Transdermal Patch] 1 patch TP DAILY PRN 12/24/18 Losartan Potassium [Cozaar 50 mg Tablet] 50 mg PO BID 12/24/18 Pregabalin [Lyrica 50 Mg Capsule] 50 mg PO TID PRN 12/24/18 Colchicine [Colcrys 0.6 mg Tablet] 0.6 mg PO PRN PRN 02/13/19 Ferrous Sulfate [Iron] 325 mg PO DAILY 02/13/19 Gabapentin [Neurontin] 800 mg PO PRN PRN 02/13/19 Pantoprazole Sodium [Protonix [address] Tablet] 40 mg PO PRN PRN 02/13/19 Indomethacin [Indocin 50 mg Capsule] 50 mg PO BID #30 capsule 04/19/19 Methylprednisolone [Medrol Dosepack (4 mg/Tab) 21 Tab/Dosepak] 4 mg PO ASDIR PRN #21 tab.ds.pk 04/19/19 Indomethacin 50 mg PO BID #30 capsule 05/25/19 Methylprednisolone [Medrol Dosepack (4 mg/Tab) 21 Tab/Dosepak] 4 mg PO ASDIR PRN #21 tab.ds.pk 05/25/19 Tramadol HCl [Ultram 50 mg Tablet] 50 mg PO Q6 PRN #10 tablet 10/31/19 Oxycodone HCl/Acetaminophen [Percocet 5-325 mg Tablet] 1 - 2 tab PO TID PRN #12 tablet 12/28/19 Polyethylene Glycol 3350 [Miralax Powder 17 gm/Packet] 1 packet PO DAILY PRN #1 pkg 12/28/19 Prednisone [Deltasone 10 mg Tablet] 10 mg PO ASDIR PRN #21 tablet 12/28/19 Hydrocodone/Acetaminophen [[place] 5-325 mg Tablet] 1 tab PO ASDIR PRN #12 tablet 01/21/20 Methocarbamol [Robaxin 750 mg Tablet] 750 mg PO ASDIR PRN #40 tablet 01/21/20 Ondansetron [Zofran Odt 4 mg Tablet] 1 - 2 tab PO Q4H PRN #15 tab.rapdis 05/14/20 Allergies/Adverse Reactions: pregabalin [From Lyrica] Allergy (Verified 05/13/20 22:47) promethazine [From Phenergan] Adverse Reaction (Intermediate, Verified 12/28/19 06:25) Dystonia Review of Systems All systems: reviewed and no additional remarkable complaints except as stated Cardiovascular: PRESENT: other - Lightheaded Neurological: PRESENT: other - Poor historian Physical Exam Vital Signs: Temp Pulse Resp BP Pulse Ox 98.0 F 15 111/74 100 08/17/20 12:02 08/17/20 18:01 08/17/20 18:01 08/17/20 18:01 Intake & Output 08/16/20 08/17/20 08/18/20 06:59 06:59 06:59 Weight 92.986 kg General appearance: PRESENT: cooperative, mild distress, well-developed, well- nourished Head exam: PRESENT: atraumatic, normocephalic Eye exam: PRESENT: conjunctiva pale, EOMI. ABSENT: scleral icterus - Dirty sclera Ear exam: PRESENT: normal external ear exam. ABSENT: bleeding, drainage Mouth exam: PRESENT: moist, tongue midline Respiratory exam: PRESENT: clear to auscultation shital, symmetrical, unlabored. ABSENT: rales, rhonchi, tachypnea, wheezes Cardiovascular exam: PRESENT: RRR, +S1, +S2. ABSENT: bradycardia, diastolic murmur, irregular rhythm, systolic murmur, tachycardia Pulses: PRESENT: other - 2+ pedal pulse on the right. 1+ pedal pulse on the left GI/Abdominal exam: PRESENT: normal bowel sounds, soft. ABSENT: distended, tenderness Rectal exam: PRESENT: deferred Gentrourinary exam: ABSENT: indwelling catheter Extremities exam: ABSENT: pedal edema Musculoskeletal exam: PRESENT: ambulatory, normal inspection. ABSENT: deformity, dislocation Neurological exam: PRESENT: alert, awake, oriented to person, oriented to place, oriented to time, oriented to situation, CN II-XII grossly intact. ABSENT: altered Psychiatric exam: PRESENT: appropriate affect. ABSENT: agitated, anxious Focused psych exam: ABSENT: delusional, paranoid, restlessness Skin exam: PRESENT: dry, warm. ABSENT: rash Results Laboratory Results: 08/17/20 12:00 08/17/20 12:00 08/17/20 08/17/20 08/17/20 12:00 12:00 12:00 WBC 6.5 RBC 3.79 L Hgb 9.3 L Hct 30.1 L MCV 80 MCH 24.6 L MCHC 31.0 L RDW 15.9 H Plt Count 119 L Seg Neutrophils % 68.0 Sodium 136.5 L Potassium 4.1 Chloride 101 Carbon Dioxide 30 Anion Gap 6 BUN 46 H Creatinine 2.80 H Est GFR ( Amer) 27 L Glucose 325 H Calcium 10.1 Magnesium 2.2 Total Bilirubin 0.6 AST 21 Alkaline Phosphatase 63 Total Protein 6.3 Albumin 3.5 08/17/20 08/17/20 12:00 16:20 Troponin I 0.019 0.022 Impressions: Chest X-Ray 08/17/20 14:14 IMPRESSION: No acute cardiopulmonary process. Head CT 08/17/20 14:14 IMPRESSION: 1. No acute intracranial abnormality. 2. Stable large left parietoccipital arachnoid cyst. EVIDENCE OF ACUTE STROKE: NO. Ankle X-Ray 08/17/20 16:49 IMPRESSION: 1. No acute fracture or dislocation of the right foot or ankle. 2. Moderate hallux valgus deformity with associated degenerative change and soft tissue swelling at the joint space. This also can be seen with gout. 3. Small plantar calcaneal spur which can be seen with plantar fasciitis. Foot X-Ray 08/17/20 16:49 IMPRESSION: 1. No acute fracture or dislocation of the right foot or ankle. 2. Moderate hallux valgus deformity with associated degenerative change and soft tissue swelling at the joint space. This also can be seen with gout. 3. Small plantar calcaneal spur which can be seen with plantar fasciitis. Wrist X-Ray 08/17/20 16:49 IMPRESSION: No acute fracture or dislocation of the right wrist. Assessment and Plan - Diagnosis (1) Hypotension due to hypovolemia Is this a current diagnosis for this admission?: Yes (2) Hyperglycemia due to type 2 diabetes mellitus Qualifiers: Diabetes mellitus mcc insulin use: with mcc use Qualified Code(s): E11.65 - Type 2 diabetes mellitus with hyperglycemia; Z79.4 - nursing home (current) use of insulin Is this a current diagnosis for this admission?: Yes (3) Systolic and diastolic CHF, chronic Is this a current diagnosis for this admission?: Yes (4) Acute renal failure superimposed on stage 3 chronic kidney disease Qualifiers: Acute renal failure type: unspecified Chronic kidney disease stage 3 subtype: stage 3b (GFR 30-44) Qualified Code(s): N17.9 - Acute kidney failure, unspecified; N18.32 - Chronic kidney disease, stage 3b Is this a current diagnosis for this admission?: Yes (5) Anemia of chronic renal failure, stage 3 (moderate) Qualifiers: Chronic kidney disease stage 3 subtype: stage 3b (GFR 30-44) Qualified Code(s): N18.32 - Chronic kidney disease, stage 3b; D63.1 - Anemia in chronic kidney disease Is this a current diagnosis for this admission?: Yes (6) Thrombocytopenia Is this a current diagnosis for this admission?: Yes (7) Back pain Qualifiers: Back pain location: back pain in unspecified location Chronicity: unspe cified Back pain laterality: unspecified Qualified Code(s): M54.9 - Dorsalgia, unspecified Is this a current diagnosis for this admission?: Yes (8) Arachnoid cyst Is this a current diagnosis for this admission?: Yes (9) Gout Qualifiers: Gout site: toe Gout etiology: unspecified cause Chronicity: chronic Laterality: right Presence of tophus: without tophus Qualified Code(s): M1A.9XX0 - Chronic gout, unspecified, without tophus (tophi) Is this a current diagnosis for this admission?: Yes - Plan Summary Summary: (1) Hypotension due to hypovolemia (2) Hyperglycemia due to type 2 diabetes mellitus (3) Systolic and diastolic CHF, chronic (4) Acute renal failure superimposed on stage 3 chronic kidney disease (5) Anemia of chronic renal failure, stage 3 (moderate) (6) Thrombocytopenia (7) Back pain (8) Arachnoid cyst (9) Gout 08/17/2020 The combination of decreased fluid intake, ongoing multiple antihypertensive medications as well as strong diuretics has caused hypovolemia leading to hypotension. In addition his glucose was 325 and this would lead to some diuresis as well. For tonight I will hold his Bumex, losartan and isosorbide/hydralazine and monitor his blood pressure on telemetry. He received 1 unit of fluid and I will administer another liter of fluid overnight. We need to use gentle fluids mindful of his history of heart failure. Chronic systolic and diastolic heart failure-the patient an echocardiogram in 2018. EF was 40% with 204 diastolic failure. There is also moderate pulmonary hypertension. At this time I will continue the carvedilol and resume the diuretics and antihypertensive medications based on his blood pressure. Hemoglobin was only 9.3 and the platelet count was down at 119. He does have anemia of chronic disease. He would benefit from multivitamin and iron supplements. Will defer to outpatient management. Because of the hypovolemia his BUN and creatinine are slightly above his normal. His GFR is slightly lower. Medication adjustments as noted above. He has a large left parieto-occipital arachnoid cyst. It is certainly possible that this may have contributed although there is not appear to be any type of midline shift that is different from CT scan from April. For his gout we are going to hold any colchicine for tonight. Reassess tomorrow. The pain in his foot is more likely from calcaneus spurs noted on the right heel as well as osteoarthritic changes. - Time Time Spent with patient: 35 or more minutes Medications reviewed and adjusted accordingly: Yes Anticipated Discharge Disposition: Home, Self Care Anticipated Discharge Timeframe: within 48 hours
[2020-08-17] MEDS ORDERED: DEXTROSE 50%-WATER 25 GM/50 ML DISP.SYRIN IV PRN ×2 (19:38)
[2020-08-17] MEDS ORDERED: GLUCAGON,HUMAN RECOMB 1 MG INJ IM PRN (19:38)
[2020-08-17] MEDS ORDERED: DEXTROSE 40% GEL 15 GM TUBE PO PRN ×2 (19:38)
[2020-08-17] MEDS ORDERED: GLIMEPIRIDE 1 MG TABLET PO ONE (21:00)
[2020-08-17] MEDS: RINGERS SOLUTION,LACTATED 1,000 ML IV PRN (21:16)
[2020-08-17] MEDS: CARVEDILOL 6.25 MG TABLET PO SCH (21:44)
[2020-08-17] MEDS: ASPIRIN 81 MG TABLET, ENT COATED PO SCH (21:44)
[2020-08-17] MEDS: LEVETIRACETAM 500 MG TABLET PO SCH (21:44)
[2020-08-17] MEDS: INSULIN REG, HUMAN 100 UNIT/ML 3 ML VIAL (PYX) SUBCUT SCH (21:49)
[2020-08-18] MEDS: RINGERS SOLUTION,LACTATED 1,000 ML IV PRN (05:30)
[2020-08-18] MEDS ORDERED: PANTOPRAZOLE SODIUM 20 MG TABLET.DR PO SCH (06:00)
[2020-08-18 07:53] LABS: HEMATOCRIT 32.9 % (37.9-51.0); HEMOGLOBIN 10.4 g/dL (13.5-17.0); MEAN CORPUSCULAR HEMOGLOBIN 24.8 pg (27.0-33.4); MEAN CORPUSCULAR HGB CONC 31.7 g/dL (32.0-36.0); MEAN CORPUSCULAR VOLUME 78 fl (80-97); PLATELET COUNT 133 10^3/uL (150-450); RED BLOOD COUNT 4.19 10^6/uL (4.35-5.55); RED CELL DISTRIBUTION WIDTH 16.6 % (11.5-14.0); WHITE BLOOD COUNT 7.6 10^3/uL (4.0-10.5)
[2020-08-18 08:10] LABS: ALBUMIN 3.7 g/dL (3.5-5.0); ANION GAP 5 (5-19); BLOOD UREA NITROGEN 38 mg/dL (7-20); CALCIUM 10.4 mg/dL (8.4-10.2); CARBON DIOXIDE 29 mmol/L (22-30); CHLORIDE 104 mmol/L (98-107); GLUCOSE 135 mg/dL (75-110); PHOSPHORUS 3.5 mg/dL (2.5-4.5); POTASSIUM 4.1 mmol/L (3.6-5.0)
[2020-08-18] MEDS: INSULIN REG, HUMAN 100 UNIT/ML 3 ML VIAL (PYX) SUBCUT SCH ×4 (09:16→22:34)
[2020-08-18] MEDS: CALCITRIOL 0.25 MCG CAPSULE PO SCH (09:46)
[2020-08-18] MEDS: CARVEDILOL 6.25 MG TABLET PO SCH ×2 (09:46→22:33)
[2020-08-18] MEDS: GLIMEPIRIDE 4 MG TABLET PO SCH (09:47)
[2020-08-18] MEDS: APIXABAN 2.5 MG TABLET PO SCH ×2 (09:47→17:09)
[2020-08-18] MEDS: LEVETIRACETAM 500 MG TABLET PO SCH ×2 (09:47→22:33)
[2020-08-18] MEDS ORDERED: RINGERS SOLUTION,LACTATED 1,000 ML IV PRN (12:41)
--- NOTE | 2020-08-18 12:55 | PDOC PROGRESS REPORT ---
Subjective Date:: 08/18/20 Subjective:: The patient still complains of right-sided weakness. Specifically tingling in t he right fingertips and decreased vascular surgery physician strength. He has tenderness in the right Achilles tendon and he states that it hurts when he walks. Blood pressures are slightly better. Reason For Visit: HYPOTENSION Physical Exam Vital Signs: Temp Pulse Resp BP Pulse Ox 98.3 F 88 18 118/65 97 08/18/20 11:18 08/18/20 11:18 08/18/20 11:18 08/18/20 11:18 08/18/20 11:18 Intake & Output 08/17/20 08/18/20 08/19/20 06:59 06:59 06:59 Intake Total 3550 260 Output Total 600 Balance 2950 260 Weight 94.1 kg General appearance: PRESENT: no acute distress, cooperative, well-developed Head exam: PRESENT: atraumatic, normocephalic Ear exam: PRESENT: normal external ear exam. ABSENT: bleeding, drainage Mouth exam: PRESENT: moist, tongue midline Respiratory exam: PRESENT: clear to auscultation shital, symmetrical, unlabored. ABSENT: rales, rhonchi, tachypnea, wheezes Cardiovascular exam: PRESENT: RRR, +S1, +S2. ABSENT: bradycardia, diastolic murmur, irregular rhythm, systolic murmur, tachycardia GI/Abdominal exam: PRESENT: normal bowel sounds, soft. ABSENT: distended, guarding, tenderness Rectal exam: PRESENT: deferred Gentrourinary exam: ABSENT: indwelling catheter Extremities exam: ABSENT: pedal edema Musculoskeletal exam: PRESENT: normal inspection, tenderness - Right Achilles tendon. ABSENT: deformity, dislocation Neurological exam: PRESENT: alert, awake, oriented to person, oriented to place, oriented to situation, motor sensory deficit - Patient's vascular surgery physician strength on the left is 5/5. On the right it is 4/5. Gross sensation is intact in the right hand. No discoloration to suggest ischemia.. ABSENT: altered Psychiatric exam: PRESENT: appropriate affect. ABSENT: agitated, anxious Focused psych exam: ABSENT: delusional, paranoid, restlessness Results Laboratory Results: 08/18/20 07:42 08/18/20 07:42 08/17/20 08/17/20 08/17/20 12:00 12:00 12:00 WBC 6.5 RBC 3.79 L Hgb 9.3 L Hct 30.1 L MCV 80 MCH 24.6 L MCHC 31.0 L RDW 15.9 H Plt Count 119 L Seg Neutrophils % 68.0 Sodium 136.5 L Potassium 4.1 Chloride 101 Carbon Dioxide 30 Anion Gap 6 BUN 46 H Creatinine 2.80 H Est GFR ( Amer) 27 L Glucose 325 H Calcium 10.1 Phosphorus Magnesium 2.2 Total Bilirubin 0.6 AST 21 Alkaline Phosphatase 63 Total Protein 6.3 Albumin 3.5 08/18/20 08/18/20 07:42 07:42 WBC 7.6 RBC 4.19 L Hgb 10.4 L Hct 32.9 L MCV 78 L MCH 24.8 L MCHC 31.7 L RDW 16.6 H Plt Count 133 L Seg Neutrophils % Sodium 138.2 Potassium 4.1 Chloride 104 Carbon Dioxide 29 Anion Gap 5 BUN 38 H Creatinine 2.29 H Est GFR ( Amer) 34 L Glucose 135 H Calcium 10.4 H Phosphorus 3.5 Magnesium Total Bilirubin AST Alkaline Phosphatase Total Protein Albumin 3.7 08/17/20 08/17/20 08/17/20 12:00 16:20 20:30 Troponin I 0.019 0.022 0.024 Impressions: Chest X-Ray 08/17/20 14:14 IMPRESSION: No acute cardiopulmonary process. Head CT 08/17/20 14:14 IMPRESSION: 1. No acute intracranial abnormality. 2. Stable large left parietoccipital arachnoid cyst. EVIDENCE OF ACUTE STROKE: NO. Ankle X-Ray 08/17/20 16:49 IMPRESSION: 1. No acute fracture or dislocation of the right foot or ankle. 2. Moderate hallux valgus deformity with associated degenerative change and soft tissue swelling at the joint space. This also can be seen with gout. 3. Small plantar calcaneal spur which can be seen with plantar fasciitis. Foot X-Ray 08/17/20 16:49 IMPRESSION: 1. No acute fracture or dislocation of the right foot or ankle. 2. Moderate hallux valgus deformity with associated degenerative change and soft tissue swelling at the joint space. This also can be seen with gout. 3. Small plantar calcaneal spur which can be seen with plantar fasciitis. Wrist X-Ray 08/17/20 16:49 IMPRESSION: No acute fracture or dislocation of the right wrist. Assessment and Plan - Diagnosis (1) Hypotension due to hypovolemia Is this a current diagnosis for this admission?: Yes (2) Hyperglycemia due to type 2 diabetes mellitus Qualifiers: Diabetes mellitus intermediate frame tender insulin use: with intermediate frame tender use Qualified Code(s): E11.65 - Type 2 diabetes mellitus with hyperglycemia; Z79.4 - [facility] (current) use of insulin Is this a current diagnosis for this admission?: Yes (3) Systolic and diastolic CHF, chronic Is this a current diagnosis for this admission?: Yes (4) Acute renal failure superimposed on stage 3 chronic kidney disease Qualifiers: Acute renal failure type: unspecified Chronic kidney disease stage 3 subtype: stage 3b (GFR 30-44) Qualified Code(s): N17.9 - Acute kidney failure, unspecified; N18.32 - Chronic kidney disease, stage 3b Is this a current diagnosis for this admission?: Yes (5) Anemia of chronic renal failure, stage 3 (moderate) Qualifiers: Chronic kidney disease stage 3 subtype: stage 3b (GFR 30-44) Qualified Code(s): N18.32 - Chronic kidney disease, stage 3b; D63.1 - Anemia in chronic kidney disease Is this a current diagnosis for this admission?: Yes (6) Thrombocytopenia Is this a current diagnosis for this admission?: Yes (7) Back pain Qualifiers: Back pain location: back pain in unspecified location Chronicity: unspecified Back pain laterality: unspecified Qualified Code(s): M54.9 - Dorsalgia, unspecified Is this a current diagnosis for this admission?: Yes (8) Arachnoid cyst Is this a current diagnosis for this admission?: Yes (9) Gout Qualifiers: Gout site: toe Gout etiology: unspecified cause Chronicity: chronic Laterality: right Presence of tophus: without tophus Qualified Code(s): M1A.9XX0 - Chronic gout, unspecified, without tophus (tophi) Is this a current diagnosis for this admission?: Yes - Plan Summary Summary: (1) Hypotension due to hypovolemia (2) Hyperglycemia due to type 2 diabetes mellitus (3) Systolic and diastolic CHF, chronic (4) Acute renal failure superimposed on stage 3 chronic kidney disease (5) Anemia of chronic renal failure, stage 3 (moderate) (6) Thrombocytopenia (7) Back pain (8) Arachnoid cyst (9) Gout 08/17/2020 The combination of decreased fluid intake, ongoing multiple antihypertensive medications as well as strong diuretics has caused hypovolemia leading to hypotension. In addition his glucose was 325 and this would lead to some diuresis as well. For tonight I will hold his Bumex, losartan and isosorbide/hydralazine and monitor his blood pressure on telemetry. He received 1 unit of fluid and I will administer another liter of fluid overnight. We need to use gentle fluids mindful of his history of heart failure. Chronic systolic and diastolic heart failure-the patient an echocardiogram in . EF was 40% with 204 diastolic failure. There is also moderate pulmonary hypertension. At this time I will continue the carvedilol and resume the diuretics and antihypertensive medications based on his blood pressure. Hemoglobin was only 9.3 and the platelet count was down at 119. He does have anemia of chronic disease. He would benefit from multivitamin and iron supplements. Will defer to outpatient management. Because of the hypovolemia his BUN and creatinine are slightly above his normal. His GFR is slightly lower. Medication adjustments as noted above. He has a large left parieto-occipital arachnoid cyst. It is certainly possible that this may have contributed although there is not appear to be any type of midline shift that is different from CT scan from April. For his gout we are going to hold any colchicine for tonight. Reassess tomorrow. The pain in his foot is more likely from calcaneus spurs noted on the right heel as well as osteoarthritic changes. 08/18/2020 Right foot pain-I believe this is more tendinitis than anything. The patient is in fact tender specifically over the Achilles tendon. This certainly could cause pain and discomfort with ambulation. Right hand-there is clearly right hand weakness. Unfortunately with a large occipital parietal arachnoid cyst it is difficult to know if the cyst is presenting the main problem or if there is a new stroke. The patient is on aspirin and direct oral anticoagulation, and bleeding does show up on the CT scan, so it may not be an acute cerebrovascular accident but it must be ruled out. In addition the patient was hypotensive. If this were the cause I would expect more global symptoms as the hypotension would not be selective with either side of the brain but rather involve the entire organ. Chronic kidney failure-BUN and creatinine are slightly improved. More importantly the patient is not exhibiting any signs of failure. Heart failure-I will continue to hold medications. I will DC the IV fluids after the current liter is finished. We will monitor the patient closely for any evidence of heart failure. It is likely we will reinstitute diuretic therapy first but I do not believe the patient will tolerate all of his medications to be resumed at once. It is doubtful that the soreness in the Achilles tendon is related to gout. It does look like the patient has had chronic gout in the tarsometatarsal joint of the hallux. His main focus of pain however is the Achilles tendon. He does have a calcaneal heel spur but this is lower down and unlikely to cause an Achilles tendinitis. With glimepiride and sliding scale coverage his glucose was 135 this morning which is much better than 325 from yesterday. - Time Time Spent with patient: 25-34 minutes Medications reviewed and adjusted accordingly: Yes Anticipated Discharge Disposition: Unknown Anticipated Discharge Timeframe: Home
[2020-08-18] MEDS: OXYCODONE HCL IR 5 MG TABLET PO PRN ×3 (14:43→22:49)
--- NOTE | 2020-08-18 14:59 | EKG REPORT ---
SEVERITY:- ABNORMAL ECG - SINUS RHYTHM LEFT ANTERIOR FASCICULAR BLOCK BORDERLINE R WAVE PROGRESSION, ANTERIOR LEADS NONSPECIFIC T ABNORMALITIES, LATERAL LEADS NONSPCIFIC IVCD : Confirmed by: Dionicio Mckeon 18-Aug-2020 14:58:34
[2020-08-18] MEDS: OXYCODONE HCL IR 5 MG TABLET ONE ×2 (15:03→15:42)
--- NOTE | 2020-08-18 19:26 | RADIOLOGY REPORT (SQ) ---
EXAM DESCRIPTION: MRI HEAD WITHOUT IMAGES COMPLETED DATE/TIME: 08/18/2020 6:26 pm REASON FOR STUDY: stroke COMPARISON: CT brain from earlier. TECHNIQUE: Multiplanar imaging includes non-contrasted T1, T2, FLAIR, and diffusion with ADC map seq uences. Images stored on PACS. LIMITATIONS: None. FINDINGS: ANATOMY: No anomalies. Normal vascular flow voids. Pituitary fossa normal. CSF SPACES: Generally maintained and normal, age-appropriate. There is a large (greater than 6 cm in the transverse plane posterior left parietal arachnoid cyst, as previously described. CEREBRUM: Sulci and gyri normal in size and contour. Normal white matter signal on FLAIR imaging. No evidence of hemorrhage, mass, or extraaxial fluid collection. POSTERIOR FOSSA: No signal alteration. No hemorrhage. No edema, masses or mass effect. Internal shefali tory canals, cerebello-pontine angles, mastoids normal. DIFFUSION IMAGING: Negative for acute or sub-acute infarction. ORBITS: No masses. Globes normal. PARANASAL SINUSES: No fluid levels. Mucosa normal. OTHER: No other significant finding. IMPRESSION: 1. No acute abnormality. No acute CVA. Large intracranial cyst as previously described. EVIDENCE OF ACUTE STROKE: NO. TECHNICAL DOCUMENTATION: JOB ID: [id number] 2010 [employer]- All Rights Reserved Reading location - IP/workstation name: [email or web address]
[2020-08-18] MEDS: ASPIRIN 81 MG TABLET, ENT COATED PO SCH (22:33)
[2020-08-18] MEDS ORDERED: PANTOPRAZOLE SODIUM 20 MG TABLET.DR PO ONE (23:00)
[2020-08-19] MEDS: OXYCODONE HCL IR 5 MG TABLET PO PRN ×2 (07:43→12:25)
[2020-08-19] MEDS: INSULIN REG, HUMAN 100 UNIT/ML 3 ML VIAL (PYX) SUBCUT SCH ×2 (07:43→11:55)
[2020-08-19] MEDS: CALCITRIOL 0.25 MCG CAPSULE PO SCH (10:25)
[2020-08-19] MEDS: GLIMEPIRIDE 4 MG TABLET PO SCH (10:25)
[2020-08-19] MEDS: CARVEDILOL 6.25 MG TABLET PO SCH (10:25)
[2020-08-19] MEDS: LEVETIRACETAM 500 MG TABLET PO SCH (10:26)
[2020-08-19] MEDS: APIXABAN 2.5 MG TABLET PO SCH (10:26)
[2020-08-19 13:05] VITALS: BP 120/70
--- NOTE | 2020-08-19 13:05 | PDOC DISCHARGE SUMMARY ---
Impression - Admit/DC Date/PCP Admission Date/Primary Care Provider: 08/17/20 19:12 NIRALI SERRANO MD Discharge Date: 08/19/20 - Discharge Diagnosis (1) Hypotension due to hypovolemia Is this a current diagnosis for this admission?: Yes (2) Hyperglycemia due to type 2 diabetes mellitus Is this a current diagnosis for this admission?: Yes (3) Systolic and diastolic CHF, chronic Is this a current diagnosis for this admission?: Yes (4) Acute renal failure superimposed on stage 3 chronic kidney disease Is this a current diagnosis for this admission?: Yes (5) Anemia of chronic renal failure, stage 3 (moderate) Is this a current diagnosis for this admission?: Yes (6) Thrombocytopenia Is this a current diagnosis for this admission?: Yes (7) Back pain Is this a current diagnosis for this admission?: Yes (8) Arachnoid cyst Is this a current diagnosis for this admission?: Yes (9) Gout Is this a current diagnosis for this admission?: Yes - Assessment Summary: (1) Hypotension due to hypovolemia (2) Hyperglycemia due to type 2 diabetes mellitus (3) Systolic and diastolic CHF, chronic (4) Acute renal failure superimposed on stage 3 chronic kidney disease (5) Anemia of chronic renal failure, stage 3 (moderate) (6) Thrombocytopenia (7) Back pain (8) Arachnoid cyst (9) Gout 08/17/2020 The combination of decreased fluid intake, ongoing multiple antihypertensive medications as well as strong diuretics has caused hypovolemia leading to hypotension. In addition his glucose was 325 and this would lead to some diuresis as well. For tonight I will hold his Bumex, losartan and isosorbide/hydralazine and monitor his blood pressure on telemetry. He received 1 unit of fluid and I will administer another liter of fluid overnight. We need to use gentle fluids mindful of his history of heart failure. Chronic systolic and diastolic heart failure-the patient an echocardiogram in 2018. EF was 40% with 204 diastolic failure. There is also moderate pulmonary hypertension. At this time I will continue the carvedilol and resume the diuretics and antihypertensive medications based on his blood pressure. Hemoglobin was only 9.3 and the platelet count was down at 119. He does have anemia of chronic disease. He would benefit from multivitamin and iron supplements. Will defer to outpatient management. Because of the hypovolemia his BUN and creatinine are slightly above his normal. His GFR is slightly lower. Medication adjustments as noted above. He has a large left parieto-occipital arachnoid cyst. It is certainly possible that this may have contributed although there is not appear to be any type of midline shift that is different from CT scan from April. For his gout we are going to hold any colchicine for tonight. Reassess tomorrow. The pain in his foot is more likely from calcaneus spurs noted on the right heel as well as osteoarthritic changes. 08/18/2020 Right foot pain-I believe this is more tendinitis than anything. The patient is in fact tender specifically over the Achilles tendon. This certainly could cause pain and discomfort with ambulation. Right hand-there is clearly right hand weakness. Unfortunately with a large occipital parietal arachnoid cyst it is difficult to know if the cyst is presenting the main problem or if there is a new stroke. The patient is on aspirin and direct oral anticoagulation, and bleeding does show up on the CT s can, so it may not be an acute cerebrovascular accident but it must be ruled out. In addition the patient was hypotensive. If this were the cause I would expect more global symptoms as the hypotension would not be selective with either side of the brain but rather involve the entire organ. Chronic kidney failure-BUN and creatinine are slightly improved. More importantly the patient is not exhibiting any signs of failure. Heart failure-I will continue to hold medications. I will DC the IV fluids after the current liter is finished. We will monitor the patient closely for any evidence of heart failure. It is likely we will reinstitute diuretic therapy first but I do not believe the patient will tolerate all of his medications to be resumed at once. It is doubtful that the soreness in the Achilles tendon is related to gout. It does look like the patient has had chronic gout in the tarsometatarsal joint of the hallux. His main focus of pain however is the Achilles tendon. He does have a calcaneal heel spur but this is lower down and unlikely to cause an Achilles tendinitis. With glimepiride and sliding scale coverage his glucose was 135 this morning which is much better than 325 from yesterday. 08/19/2020 The patient's MRI showed no evidence of acute or subacute stroke. I believe the large arachnoid cyst is causing issues with his right side. Physical therapy did work with the patient and he walked 50 feet with a walker. He has been walking to the bathroom in his room without assistance. The patient's blood pressure is better. We discussed discharge and the patient stated that he wants to go to a [facility]. With his current functional level this is not an appropriate disposition. I did talk to the patient's . I am going to discharge him home. We are holding some of his antihypertensive medications as that was a big problem with his hypovolemic hypotension and polypharmacy. Will be important for the patient to follow-up with nephrology or primary care as he may likely need medications restarted or he may benefit from different medications. - Additional Information Resuscitation Status: Full Code Discharge Diet: Cardiac, Diabetic Discharge Activity: Activity As Tolerated, Balance Activity w/Rest Referrals: NIRALI SERRANO MD [Primary Care Provider] - Follow up as needed (FOLLOW UP WITHIN 7-10 DAYS) Prescriptions: Tramadol HCl [Ultram 50 mg Tablet] 50 mg PO Q6HP PRN #10 tablet PRN Reason: For Pain Home Medications: Aspirin [Adult Low Dose Aspirin EC] 81 mg PO DAILY 03/04/18 Calcitriol [Rocaltrol 0.25 mcg Capsule] 0.5 mcg PO MOWEFR 03/04/18 Cholecalciferol (Vitamin D3) [Vitamin D3 1000 Unit Tablet] 1,000 unit PO DAILY 03/04/18 Glimepiride [Amaryl 4 mg Tablet] 4 mg PO DAILY 03/04/18 Apixaban [Eliquis] 2.5 mg PO Q12 #60 tablet 03/08/18 Carvedilol [Coreg 6.25 mg Tablet] 6.25 mg PO Q12 #60 tablet 03/08/18 Dulaglutide [Trulicity] 1.5 mg SQ ASDIR 12/24/18 Allopurinol [Zyloprim 300 mg Tablet] 300 mg PO DAILY 08/17/20 Levetiracetam 250 mg PO BID 08/17/20 Apixaban [Eliquis 2.5 mg Tablet] 2.5 mg PO BID tablet 08/19/20 Aspirin [Ecotrin 81 mg EC Tablet] 81 mg PO QHS tabec 08/19/20 Calcitriol [Rocaltrol 0.25 mcg Capsule] 0.5 mcg PO DAILY capsule 08/19/20 Carvedilol [Coreg 6.25 mg Tablet] 6.25 mg PO Q12 tablet 08/19/20 Glimepiride [Amaryl 4 mg Tablet] 4 mg PO DAILY tablet 08/19/20 Levetiracetam [Keppra 500 mg Tablet] 250 mg PO Q12 tablet 08/19/20 Nitroglycerin [Nitrostat 0.4 mg (1/150 Gr) Tabs 25/Bottle] 1 tab SL Q5MP PRN bottle 08/19/20 Tramadol HCl [Ultram 50 mg Tablet] 50 mg PO Q6HP PRN #10 tablet 08/19/20 History of Present Illiness History of Present Illness: BAM MORRISON is a 69 year old male who is a poor historian. He has a history of heart failure, diabetes mellitus type 2, hypertension and chronic kidney disease who was in his usual state of health yesterday. When he woke this morning he began to notice numbness and tingling in his right hand and right foot. He does have a history of gout and I believe he was trying to describe diabetic neuropathy. He also has a very large left parieto-occipital arachnoid cyst that is unchanged from April. He was noted to be hypotensive and was told he was dehydrated by EMS who subsequently transported him to the emergency department. It appears that 1 L of fluid was given. This was likely started by EMS as there is no fluid order in the electronic record. Laboratory studies were drawn. His creatinine is slightly above his baseline which usually runs at approximately 2.2. BUN is slightly elevated at 46. Glucose is markedly elevated at 325. He is slightly more anemic than usual with a hemoglobin of 9.3. Chest x-ray showed no evidence of heart failure. CT scan showed the extremely large left parieto-occipital arachnoid cyst that is unchanged from April of this year. Physical Exam Vital Signs: Temp Pulse Resp BP Pulse Ox 97.4 F 91 20 120/63 93 08/19/20 08:32 08/19/20 08:32 08/19/20 08:32 08/19/20 08:32 08/19/20 08:32 Intake & Output 08/18/20 08/19/20 08/20/20 06:59 06:59 06:59 Intake Total 3550 1520 336 Output Total 600 500 Balance 2950 1520 -164 Weight 94.1 kg 97.8 kg General appearance: PRESENT: no acute distress, cooperative, well-developed Head exam: PRESENT: atraumatic, normocephalic Respiratory exam: PRESENT: clear to auscultation shital, symmetrical, unlabored. ABSENT: rales, rhonchi, tachypnea, wheezes Cardiovascular exam: PRESENT: RRR, +S1, +S2 GI/Abdominal exam: PRESENT: normal bowel sounds, soft. ABSENT: tenderness Musculoskeletal exam: PRESENT: other - Tender right Achilles tendon. Less so than yesterday. Neurological exam: PRESENT: alert, awake, oriented to person, oriented to place, oriented to time, oriented to situation. ABSENT: altered Psychiatric exam: ABSENT: agitated, anxious Focused psych exam: ABSENT: delusional, paranoid, restlessness Results Laboratory Results: WBC 7.6 10^3/uL (4.0-10.5) 08/18/20 07:42 RBC 4.19 10^6/uL (4.35-5.55) L 08/18/20 07:42 Hgb 10.4 g/dL (13.5-17.0) L 08/18/20 07:42 Hct 32.9 % (37.9-51.0) L 08/18/20 07:42 MCV 78 fl (80-97) L 08/18/20 07:42 MCH 24.8 pg (27.0-33.4) L 08/18/20 07:42 MCHC 31.7 g/dL (32.0-36.0) L 08/18/20 07:42 RDW 16.6 % (11.5-14.0) H 08/18/20 07:42 Plt Count 133 10^3/uL (150-450) L 08/18/20 07:42 Lymph % (Auto) 21.3 % (13-45) 08/17/20 12:00 [place] % (Auto) 8.6 % (3-13) 08/17/20 12:00 Eos % (Auto) 1.0 % (0-6) 08/17/20 12:00 Baso % (Auto) 1.1 % (0-2) 08/17/20 12:00 Absolute Neuts (auto) 4.4 10^3/uL (1.7-8.2) 08/17/20 12:00 Absolute Lymphs (auto) 1.4 10^3/uL (0.5-4.7) 08/17/20 12:00 Absolute Monos (auto) 0.6 10^3/uL (0.1-1.4) 08/17/20 12:00 Absolute Eos (auto) 0.1 10^3/uL (0.0-0.6) 08/17/20 12:00 Absolute Basos (auto) 0.1 10^3/uL (0.0-0.2) 08/17/20 12:00 Seg Neutrophils % 68.0 % (42-78) 08/17/20 12:00 Sodium 138.2 mmol/L (137-145) 08/18/20 07:42 Potassium 4.1 mmol/L (3.6-5.0) 08/18/20 07:42 Chloride 104 mmol/L (98-107) 08/18/20 07:42 Carbon Dioxide 29 mmol/L (22-30) 08/18/20 07:42 Anion Gap 5 (5-19) 08/18/20 07:42 BUN 38 mg/dL (7-20) H 08/18/20 07:42 Creatinine 2.29 mg/dL (0.52-1.25) H 08/18/20 07:42 Est GFR ( Amer) 34 (>60) L 08/18/20 07:42 Est GFR (MDRD) Non-Af 28 (>60) L 08/18/20 07:42 Glucose 135 mg/dL (75-110) H 08/18/20 07:42 Calcium 10.4 mg/dL (8.4-10.2) H 08/18/20 07:42 Phosphorus 3.5 mg/dL (2.5-4.5) 08/18/20 07:42 Magnesium 2.2 mg/dL (1.6-2.3) 08/17/20 12:00 Total Bilirubin 0.6 mg/dL (0.2-1.3) 08/17/20 12:00 Direct Bilirubin 0.2 mg/dL (0.0-0.4) 08/17/20 12:00 Neonat Total Bilirubin Not Reportable 08/17/20 12:00 Neonat Direct Bilirubin Not Reportable 08/17/20 12:00 Neonat Indirect Bili Not Reportable 08/17/20 12:00 AST 21 U/L (17-59) 08/17/20 12:00 ALT 15 U/L (<50) 08/17/20 12:00 Alkaline Phosphatase 63 U/L (38-126) 08/17/20 12:00 Troponin I 0.024 ng/mL 08/17/20 20:30 Total Protein 6.3 g/dL (6.3-8.2) 08/17/20 12:00 Albumin 3.7 g/dL (3.5-5.0) 08/18/20 07:42 08/17/20 08/17/20 08/17/20 12:00 16:20 20:30 Troponin I 0.019 0.022 0.024 Impressions: Chest X-Ray 08/17/20 14:14 IMPRESSION: No acute cardiopulmonary process. Head CT 08/17/20 14:14 IMPRESSION: 1. No acute intracranial abnormality. 2. Stable large left parietoccipital arachnoid cyst. EVIDENCE OF ACUTE STROKE: NO. Ankle X-Ray 08/17/20 16:49 IMPRESSION: 1. No acute fracture or dislocation of the right foot or ankle. 2. Moderate hallux valgus deformity with associated degenerative change and soft tissue swelling at the joint space. This also can be seen with gout. 3. Small plantar calcaneal spur which can be seen with plantar fasciitis. Foot X-Ray 08/17/20 16:49 IMPRESSION: 1. No acute fracture or dislocation of the right foot or ankle. 2. Moderate hallux valgus deformity with associated degenerative change and soft tissue swelling at the joint space. This also can be seen with gout. 3. Small plantar calcaneal spur which can be seen with plantar fasciitis. Wrist X-Ray 08/17/20 16:49 IMPRESSION: No acute fracture or dislocation of the right wrist. Head MRI 08/18/20 00:00 IMPRESSION: 1. No acute abnormality. No acute CVA. Large intracranial cyst as previously described. EVIDENCE OF ACUTE STROKE: NO. Plan Health Concerns: Extremely large parieto-occipital arachnoid cyst on the left that I feel could be affecting his right side. MRI showed no acute stroke. I also am concerned that the patient is becoming depressed because he stated that he wants to go to the [facility]. This is a discussion for his primary care and his to have with the patient. Plan of Treatment: Hold several of antihypertensive medications until follow-up. It is likely that he will be able to discontinue some of the meds moving forward. I did talk to the patient's Evy. I explained that medically he is appropriate for home and we have ordered home health. Goals: Medication adjustment to achieve stable blood pressure. Time Spent: Greater than 30 Minutes Stroke Is this a Stroke Patient?: No Acute Heart Failure Is this a Heart Failure Patient?: No
[2020-08-19] MEDS ORDERED: PANTOPRAZOLE SODIUM 20 MG TABLET.DR PO SCH (22:00)
== END 2020-08-19 14:20 | disposition home or self-care (01) ==
LOC: ER 11:40 → EH 19:12 → 4N 21:05
PROVIDERS: ADMIT Hospitalist; ATTEND Hospitalist
DX: I95.9 Hypotension, unspecified (principal); E86.1 Hypovolemia; I13.0 Hypertensive heart and chronic kidney disease with heart failure and stage 1 through stage 4 chronic kidney disease, or unspecified chronic kidney disease; E11.22 Type 2 diabetes mellitus with diabetic chronic kidney disease; N18.32 Chronic kidney disease, stage 3b; I50.42 Chronic combined systolic (congestive) and diastolic (congestive) heart failure; N17.9 Acute kidney failure, unspecified; E11.65 Type 2 diabetes mellitus with hyperglycemia; D63.1 Anemia in chronic kidney disease; D69.6 Thrombocytopenia, unspecified; M54.9 Dorsalgia, unspecified; G93.0 Cerebral cysts; M1A.9XX0 Chronic gout, unspecified, without tophus (tophi); R42 Dizziness and giddiness; M62.81 Muscle weakness (generalized); M79.601 Pain in right arm; M79.671 Pain in right foot; R20.0 Anesthesia of skin; Z88.8 Allergy status to other drugs, medicaments and biological substances; Z79.4 Long term (current) use of insulin; Z79.899 Other long term (current) drug therapy; I25.10 Atherosclerotic heart disease of native coronary artery without angina pectoris; I25.2 Old myocardial infarction; J44.9 Chronic obstructive pulmonary disease, unspecified; Z79.82 Long term (current) use of aspirin
CPT/HCPCS: 93005; 99285; 80069; 36415 ×2; 82962 ×3; 83735; 85025; 85027; 80053; 84484; 70551; 73610; 71045; 73630; 73110; 70450; 93010; 94660 ×3; 97530; 97161; G0378 ×4; A9270 ×22; J3490; J7120 ×2; J1815

== ENCOUNTER 2020-09-26 21:44 | Emergency (ER) | payer MEDICARE, OTHER ==
[2020-09-26 22:28] LABS: ABSOLUTE EOSINOPHILS # (AUTO) 0.1 10^3/uL (0.0-0.6); ABSOLUTE LYMPHOCYTES (AUTO) 1.4 10^3/uL (0.5-4.7); ABSOLUTE MONOCYTES (AUTO) 0.5 10^3/uL (0.1-1.4); ABSOLUTE NEUT (AUTO) 5.1 10^3/uL (1.7-8.2); BASOPHILS % (AUTO) 0.3 % (0-2); EOSINOPHILS % (AUTO) 1.7 % (0-6); HEMATOCRIT 32.1 % (37.9-51.0); HEMOGLOBIN 10.2 g/dL (13.5-17.0); MEAN CORPUSCULAR HEMOGLOBIN 24.8 pg (27.0-33.4); MEAN CORPUSCULAR HGB CONC 31.6 g/dL (32.0-36.0); MEAN CORPUSCULAR VOLUME 78 fl (80-97); MONOCYTES % (AUTO) 7.2 % (3-13); PLATELET COUNT 193 10^3/uL (150-450); RED CELL DISTRIBUTION WIDTH 15.5 % (11.5-14.0); SEGMENTED NEUTROPHILS % (AUTO) 71.8 % (42-78); TOTAL CELLS COUNTED % (AUTO) 100 %; WHITE BLOOD COUNT 7.1 10^3/uL (4.0-10.5)
[2020-09-26 22:44] LABS: ALBUMIN 4.2 g/dL (3.5-5.0); ALKALINE PHOSPHATASE 83 U/L (38-126); ANION GAP 7 (5-19); ASPARTATE AMINO TRANSFERASE 30 U/L (17-59); BILIRUBIN,DIRECT 0.3 mg/dL (0.0-0.4); BILIRUBIN,TOTAL 0.8 mg/dL (0.2-1.3); BLOOD UREA NITROGEN 42 mg/dL (7-20); CALCIUM 10.7 mg/dL (8.4-10.2); CARBON DIOXIDE 31 mmol/L (22-30); CHLORIDE 100 mmol/L (98-107); GLUCOSE 291 mg/dL (75-110); POTASSIUM 4.1 mmol/L (3.6-5.0); TOTAL PROTEIN 7.2 g/dL (6.3-8.2)
--- NOTE | 2020-09-26 23:13 | RADIOLOGY REPORT (SQ) ---
EXAM DESCRIPTION: XR CHEST 1 VIEW COMPLETED DATE/TME: 09/26/2020 22:34 CLINICAL HISTORY: 70 years, Male, SOB COMPARISON: 08/17/2020 chest NUMBER OF VIEWS: 1 TECHNIQUE: Portable chest LIMITATIONS: None. FINDINGS: Heart size is normal. Slightly coarsened perihilar interstitial changes. No pneumothorax IMPRESSION: Coarsened perihilar interstitial changes may reflect mild pneumonitis or interstitial edema copyright 2011 [employer]- All Rights Reserved
[2020-09-26] MEDS ORDERED: NORMAL SALINE 500 ML IV ONE (23:42)
--- NOTE | 2020-09-26 23:44 | ER Document Report ---
ED General - General Chief Complaint: Shortness Of Breath Stated Complaint: DIFFICULTY BREATHING Time Seen by Provider: 09/26/20 22:48 Primary Care Provider: NIRALI SERRANO MD [Primary Care Provider] - Follow up as needed Notes: Patient is a 70-year-old male who comes emergency department for chief complaint of an episode of difficulty breathing. Patient states he awoke from sleep in a panic, he states he felt like he could not catch his breath, he states he was anxious and could not catch his breath for several minutes after despite being on his CPAP for sleep apnea, he states that because he could not catch his breath he called his to call EMS. He states that when EMS arrived he calmed down, his shortness of breath resolved, and he feels fine now. He denies chest pain, dizziness, nausea, vomiting, abdominal pain, or any current complaints. He denies cough, fever/chills, recent COVID-19 exposure. Past medical history includes atrial fibrillation on Eliquis and carvedilol, CHF on Bumex, hypertension, chronic kidney disease, type 2 diabetes. TRAVEL OUTSIDE OF THE [place] IN LAST 30 DAYS: No - Related Data Allergies/Adverse Reactions: pregabalin [From Lyrica] Allergy (Verified 05/13/20 22:47) promethazine [From Phenergan] Adverse Reaction (Intermediate, Verified 12/28/19 06:25) Dystonia Home Medications: Eliquis. Carvedilol. Nitro PRN Past Medical History - General Information source: Patient - Social History Smoking Status: Never Smoker Frequency of alcohol use: None Drug Abuse: None Lives with: Family Family History: Reviewed & Not Pertinent, DM, Hypertension - Past Medical History Cardiac Medical History: Reports: Hx Atrial Fibrillation - Paroxysmal, Hx Congestive Heart Failure - Systolic; ejection fraction 2017 of approximately 20%., Hx Coronary Artery Disease, Hx Heart Attack - [place] December 2016, Hx Hypercholesterolemia, Hx Hypertension Denies: Hx DVT, Hx Pulmonary Embolism Pulmonary Medical History: Reports: Hx Bronchitis, Hx COPD - Nightly and as needed 2 L oxygen per nasal cannula, Hx Sleep Apnea - Nasal CPAP; pressure 10 Denies: Hx Asthma Neurological Medical History: Denies: Hx Seizures Endocrine Medical History: Reports: Hx Diabetes Mellitus Type 2. Denies: Hx Diabetes Mellitus Type 1, Hx Hyperthyroidism, Hx Hypothyroidism Renal/ Medical History: Reports: Hx Renal Insufficiency. Denies: Hx Peritoneal Dialysis GI Medical History: Reports: Hx Gastroesophageal Reflux Disease, Hx Colonoscopy, Hx Endoscopy. Denies: Hx Cirrhosis Musculoskeletal Medical History: Reports Hx Arthritis, Reports Hx Gout - Primarily affecting left ankle and foot, Reports Hx Musculoskeletal Deformity - Back pain years Psychiatric Medical History: Denies: Hx Depression Infectious Medical History: Denies: Hx C-Diff, Hx MRSA Past Surgical History: Reports: Hx Cardiac Surgery - DEFIB, pt states no. states it was portable, Hx Orthopedic Surgery - right rotator cuff. Denies: Hx Pacemaker - Immunizations Hx Diphtheria, Pertussis, Tetanus Vaccination: Yes Hx Pneumococcal Vaccination: 11/05/13 Review of Systems - Review of Systems Constitutional: No symptoms reported EENT: No symptoms reported Cardiovascular: See HPI Respiratory: See HPI Gastrointestinal: No symptoms reported Genitourinary: No symptoms reported Male Genitourinary: No symptoms reported Musculoskeletal: No symptoms reported Skin: No symptoms reported Hematologic/Lymphatic: No symptoms reported Neurological/Psychological: No symptoms reported Physical Exam - Vital signs Vitals: Resp 5 L 09/26/20 21:53 - Notes Notes: GENERAL: Alert, interacts well. No acute distress. Very talkative and well- appearing HEAD: Normocephalic, atraumatic. EYES: Pupils equal, round, and reactive to light. Extraocular movements intact. ENT: Oral mucosa moist, tongue midline. Oropharynx unremarkable. Airway patent. Nares patent, sinuses non-tender, ear canals unremarkable, TM's intact. NECK: Full range of motion. Supple. Trachea midline. No lymphadenopathy. LUNGS: Clear to auscultation bilaterally, no wheezes, rales, or rhonchi. No respiratory distress. Non-tender chest wall. HEART: Irregularly irregular, no tachycardia, no murmur ABDOMEN: Soft, non-tender. Non-distended. EXTREMITIES: Moves all 4 extremities spontaneously. No edema, normal radial and dorsalis pedis pulses bilaterally. No cyanosis. BACK: no cervical, thoracic, lumbar midline tenderness. No saddle anesthesia, normal distal neurovascular exam. Moves all extremities in full range of motion. NEUROLOGICAL: Alert and oriented x3. Normal speech. Cranial nerves II through XII grossly intact. Strength 5/5 in all extremities. PSYCH: Normal affect, normal mood. SKIN: Warm, dry, normal turgor. No rashes or lesions noted. Course - Re-evaluation Re-evalutation: Patient asymptomatic, smiling, well-appearing on exam. He does appear clinically dry and was given a small amount of fluids but this did not significa ntly impact his heart rate. He is in atrial fibrillation chronically, anticoagulated, this is approximately 100 and occasionally higher but not consistently or even frequently at 120. Occasionally his blood pressure reading is slightly low but this is consistent with previous evaluations as well. Chest x-ray nonspecific, questionable interstitial edema versus inflammation although his chest x-ray does not significantly appear different from prior. BNP is elevated but not the highest has been here, possibly some pulmonary vascular congestion component. However patient denies shortness of breath, he ambulated without any difficulty. He has no hypoxia, he has no rales on exam, no lower extremity swelling. He states he is hoping to go home. Troponins cycled and negative. Chemistry shows chronic kidney disease, CBC with normocytic anemia. I discussed with Dr. Rosado. Patient was given Lasix, she recommends patient have outpatient follow-up to recheck for his heart rate and strict return precautions but patient can be discharged, patient is very grateful and in full agreement with this, stable and well-appearing at time of discharge. - Vital Signs Vital signs: Temp Pulse Resp BP Pulse Ox 98.3 F 108 H 26 H 102/84 100 09/26/20 22:23 09/26/20 22:23 09/27/20 04:01 09/27/20 04:01 09/27/20 01:01 - Laboratory Results Result Diagrams: 09/26/20 22:17 09/26/20 22:17 Laboratory Results Interpreted: 09/26/20 09/26/20 09/26/20 22:17 22:17 22:17 RBC 4.10 L Hgb 10.2 L Hct 32.1 L MCV 78 L MCH 24.8 L MCHC 31.6 L RDW 15.5 H Carbon Dioxide 31 H BUN 42 H Creatinine 2.95 H Est GFR ( Amer) 26 L Est GFR (MDRD) Non-Af 21 L Glucose 291 H POC Glucose Calcium 10.7 H NT-Pro-B Natriuret Pep 12183 H 09/26/20 22:48 RBC Hgb Hct MCV MCH MCHC RDW Carbon Dioxide BUN Creatinine Est GFR ( Amer) Est GFR (MDRD) Non-Af Glucose POC Glucose 292 H Calcium NT-Pro-B Natriuret Pep Critical Laboratory Results Reviewed: No Critical Results - Radiology Results Critical Radiology Results Reviewed: No Critical Results - EKG Interpretation by Me Additional EKG results interpreted by me: EKG shows atrial fibrillation at a rate of 105, PVCs, QTc 487, left axis deviation. No T wave inversions or ST segment changes in consecutive leads. Discharge - Discharge Clinical Impression: Shortness of breath Atrial fibrillation Qualifiers: Atrial fibrillation type: longstanding persistent Qualified Code(s): I48.11 - Longstanding persistent atrial fibrillation Condition: Stable Disposition: HOME, SELF-CARE Additional Instructions: You were given a dose of diuretic to the IV to help with your breathing at home but your general work-up does not show any concerning findings. Your heart rate at times is too fast, you may need an adjustment for your medications for atrial fibrillation, please follow close with your first assistant for recheck and additional management. Return if you worsen including return shortness of breath, chest pain, fever, passing out, or any other concerning or worsening symptoms. Referrals: NIRALI SERRANO MD [Primary Care Provider] - Follow up as needed
--- OUTSIDE RECORDS SUMMARY | 2020-09-27 00:07 | XMS REPORT ---
:1950 [facility] [address] [place] [id number] Care Team Providers Name Role Phone [facility] Primary Care Physician Unavailable Clovis Arvizu Attending Clinician Unavailable Allergies, Adverse Reactions, Alerts Allergy Name Allergy Status Severity Reaction(s) Onset Inactive Treat ing Comments Type Date Date Clinician Lyrica Allergy to Active Drug (Finding) Promethazine Allergy to Active substance Promethazine Allergy to Active HCl Drug (Ingredient(s (Finding) ): promethazine) Medications Ordered Filled Start Stop Current Ordering Indication Dosage Frequency Signature Comments Components Medication Medication Date Date Medication? Clinician (SIG) Name Name Cholecalcif Yes 1 brenda 2-27 00:00: 00 losartan 50 2018-0 No losartan mg tablet 7-16 50 mg 00:00: tablet 00 Colcrys 0.6 No Colcrys mg tablet 1 8-24 0.6 mg po daily 00:00: tablet 1 prn 00 po daily prn oxycodone-a No 1 Q1D oxycodone- cetaminophe 8-24 acetaminop n 5 mg-325 00:00: hen 5 mg tablet 00 mg-325 mg Take 1 tablet tablet Take 1 every day tablet by oral every day route as by oral needed for route as 15 days. needed for 15 days. allopurinol No allopurino 100 mg l [address] JOHNSON ORNELAS carvedilol No carvedilol DR PRITI MARCOS cholecalcif No cholecalci brenda ferol (vitamin (vitamin D3) 125 mcg D3) 125 (5,000 mcg (5,000 unit) unit) capsule DR capsule DR JOHNSON MARCOS isosorbide- Daria isosorbide hydralazine -hydralazi DR MARCOS ne DR MARCOS losartan DR Huff losartan PRITI MARCOS prednisone No prednisone 5 mg tablet 5 mg take 6 tablet tablets BY take 6 MOUTH FOR 2 tablets BY DAYS AND MOUTH FOR DECREASE BY 2 DAYS AND ONE TABLET DECREASE EVERY 2 BY ONE DAYS UNTIL TABLET GONE EVERY 2 DAYS UNTIL GONE Trulicity No Trulicity DR ROB RIVAS allopurinol No allopurino 300 mg l 300 mg tablet tablet aspirin 81 No aspirin 81 mg mg tablet,mauricio tablet,del yed release ayed release bumetanide No bumetanide 1 mg tablet 1 mg tablet calcitriol No calcitriol 0.5 mcg 0.5 mcg capsule capsule carvedilol No carvedilol 6.25 mg 6.25 mg tablet tablet ciprofloxac No ciprofloxa in 500 mg zheng 500 mg tablet tablet Eliquis 2.5 No Eliquis mg tablet 2.5 mg tablet levetiracet No levetirace am 250 mg del rio 250 mg tablet tablet Trulicity No Trulicity 1.5 mg/0.5 1.5 mg/0.5 mL mL subcutaneou subcutaneo s pen us pen injector injector atorvastati No atorvastat n 40 mg in 40 mg tablet qd tablet qd baclofen 20 No 1 baclofen mg tablet 20 mg Take 1 tablet tablet as Take 1 needed by tablet as oral route needed by as needed. oral route as needed. carvedilol No carvedilol 25 mg 25 mg tablet tablet cyanocobala No 1capsul Q1D cyanocobal min e(s) sharma (vitamin (vitamin B-12) 1,000 B-12) mcg capsule 1,000 mcg Take 1 capsule capsule Take 1 every day capsule by oral every day route. by oral route. Easy Touch No Easy Touch Alcohol Alcohol Prep Pads Prep Pads Entresto 24 No Entresto mg-26 mg 24 mg-26 tablet one mg tablet tablet qd one tablet qd Ferrex 150 No Ferrex 150 Forte Plus Forte Plus 150 mg-60 150 mg-60 mg-25 mcg-1 mg-25 mg capsule mcg-1 mg once daily capsule once daily ferrous No 1 BID ferrous sulfate 325 sulfate mg (65 mg 325 mg (65 iron) mg iron) tablet Take tablet 1 tablet Take 1 twice a day tablet by oral twice a route. day by oral route. furosemide No furosemide 20 mg 20 mg tablet tablet glucose 4 No glucose 4 gram gram chewable chewable tablet Take tablet by oral Take by route. oral route. Klor-Con 10 No Klor-Con mEq 10 mEq tablet,exte tablet,ext nded ended release release Lantus No Lantus Solostar Solostar U-100 U-100 Insulin 100 Insulin unit/mL (3 100 mL) unit/mL (3 subcutaneou mL) s pen subcutaneo us pen lidocaine 5 No lidocaine % topical 5 % patch APPLY topical 1 PATCH BY patch TRANSDERMAL APPLY 1 ROUTE ONCE PATCH BY DAILY (MAY TRANSDERMA WEAR UP TO L ROUTE 12HOURS.) ONCE DAILY (MAY WEAR UP TO 12HOURS.) Lyrica 50 No Lyrica 50 mg capsule mg capsule midodrine 5 No midodrine mg tablet 5 mg one tablet tablet one TID tablet TID Tylenol 325 No 2 Q6H Tylenol mg tablet 325 mg Take 2 tablet tablets Take 2 every 6 tablets hours by every 6 oral route. hours by oral route. gabapentin No 1 Q1D gabapentin 800 mg 800 mg tablet tablet 1Horizant Yes 1 Lyrica 75 No 1capsul TID Lyrica 75 mg capsule e(s) mg capsule Take 1 Take 1 capsule 3 capsule 3 times a day times a by oral day by route as oral route directed as for 30 directed days. for 30 days. oxycodone-a No 1 Q1D oxycodone- cetaminophe acetaminop n 10 mg-325 hen 10 mg tablet mg-325 mg Take 1 tablet tablet Take 1 every day tablet by oral every day route as by oral needed. route as needed. pantoprazol No 1 Q1D pantoprazo e 40 mg le 40 mg tablet,mauricio tablet,del yed release ayed Take 1 release tablet Take 1 every day tablet by oral every day route as by oral needed. route as needed. Tylenol No 2 Q4H Tylenol Extra Extra Strength Strength 500 mg 500 mg tablet Take tablet 2 tablets Take 2 every 4 tablets hours by every 4 oral route hours by as needed. oral route as needed. Vitamin No 1 Q1D Vitamin B-12 1,000 B-12 1,000 mcg tablet mcg tablet Take 1 Take 1 tablet tablet every day every day by oral by oral route for route for 100 days. 100 days. Vitamin D3 No 1 Q1D Vitamin D3 25 mcg 25 mcg (1,000 (1,000 unit) unit) tablet Take tablet 1 tablet Take 1 every day tablet by oral every day route for by oral 90 days. route for 90 days. oxycodone-a No oxycodone- cetaminophe acetaminop n 5 mg-325 hen 5 mg tablet mg-325 mg tablet isosorbide No 2 TID isosorbide 20 20 mg-hydralaz mg-hydrala ine 37.5 mg zine 37.5 tablet Take mg tablet 2 tablets 3 Take 2 times a day tablets 3 by oral times a route. day by oral route. methocarbam No methocarba ol 500 mg mol 500 mg tablet tablet naftifine 2 No naftifine % topical 2 % cream topical cream indomethaci No indomethac n 50 mg in 50 mg capsule capsule methylpredn No methylpred isolone 4 nisolone 4 mg tablet mg tablet nitroglycer No nitroglyce in 0.2 rin 0.2 mg/hr mg/hr transdermal transderma 24 hour l 24 hour patch patch losartan 25 No losartan mg tablet 25 mg tablet naproxen No naproxen 250 mg 250 mg tablet tablet Voltaren 1 No Voltaren 1 % topical % topical gel gel methocarbam No methocarba ol 750 mg mol 750 mg tablet tablet nystatin No nystatin 100,000 100,000 unit/gram unit/gram topical topical powder powder polyethylen No polyethyle e glycol ne glycol 3350 17 3350 17 gram/dose gram/dose oral powder oral powder prednisone No prednisone 10 mg 10 mg tablet tablet Aspirin Yes 1 tramadol 50 No tramadol mg tablet 50 mg tablet Lyrica 100 No 1capsul BID Lyrica 100 mg capsule e(s) mg capsule Take 1 Take 1 capsule capsule twice a day twice a by oral day by route for oral route 30 days. for 30 days. pregabalin No pregabalin 100 mg 100 mg capsule capsule Take 1 Take 1 capsule capsule twice a day twice a by oral day by route for oral route 30 days. for 30 days. BiDil Yes 1 Calcitriol Yes 1 Cholecalcif Yes 1 brenda Colchicine Yes 1 [facility] Glucose Yes 1 Glimepiride Yes 1 Keppra Yes 1 Losartan Yes 1 Potassium Nitroglycer Yes 1 in Pantoprazol Yes 1 e Sodium Trulicity Yes 1 Lidocaine 2020- No 1 07-05 13:52 :39 Lyrica 2019- No 1 07-05 13:51 :50 predniSONE 2019- No 07-05 13:52 :49 Gabapentin 2019- No 1 10-19 15:35 :53 Indomethaci 2019- No 1 n 10-19 15:36 :25 Methocarbam 2019- No 1 ol 10-19 15:37 :15 Xopenex HFA 2019- No 2 10-19 15:38 :13 Problems Condition Condition Condition Status Onset Resolution Last Treatin g Comments Name Details Category Date Date Treatment Clinician Date Multiple Multiple Problem Active 2019-09 complicatio Complicatio 10-29 ns due to ns Due to 00:00: diabetes Diabetes 00 mellitus Mellitus Neuropathy Neuropathy Problem Active 2019-09 008 00:00: 00 Anemia of Anemia of Diagnosis active chronic chronic 29 disease disease 00:00: 00 Chronic Chronic Diagnosis active kidney kidney 04-04 disease disease 00:00: stage 3 stage 3 00 Vitamin D Vitamin D Diagnosis active deficiency deficiency 04-04 00:00: 00 Hypertensiv Hypertensiv Problem Active e heart AND e Heart and 3-20 chronic Chronic 00:00: kidney Kidney 00 disease Disease with with congestive Congestive heart Heart failure Failure Diabetes Diabetes Problem Active mellitus Mellitus 3-20 00:00: 00 Anemia Anemia Diagnosis active 212 00:00: 00 Primary Primary Problem Active 2018-09 gout Gout 2-10 00:00: 00 Chronic low Chronic Low Problem Active 2018-09 back pain Back Pain 09-13 00:00: 00 Candidiasis Candidiasis Problem Active 2018-09 of of 07 urogenital Urogenital 00:00: site Site 00 Pain of Pain of Problem Active 2017-09 left elbow Left Elbow 1-30 joint Joint 00:00: 00 Arachnoid Arachnoid Problem Active 2017-09 cyst Cyst 1-28 00:00: 00 Fatigue Fatigue Problem Active 2017-09 00:00: 00 Pain in Pain in Problem Active elbow Elbow 824 00:00: 00 Olecranon Olecranon Problem Active bursitis Bursitis 824 00:00: 00 History of History of Problem Active polyp of Polyp of 724 colon Colon 00:00: 00 Anemia of Anemia of Problem Active chronic Chronic 7-17 disease Disease 00:00: 00 Chronic Chronic Problem Active kidney Kidney 7-17 disease Disease 00:00: stage 4 Stage 4 00 Cardiomegal Cardiomegal Problem Active y y 4-12 00:00: 00 Dyspnea Dyspnea Problem Active 412 00:00: 00 Low back Low Back Problem Active pain Pain 9-14 00:00: 00 Diabetes Diabetes Problem Active mellitus Mellitus 05-07 00:00: 00 Dyslipidemi Dyslipidemi Problem Active a a 05-07 00:00: 00 Hypertensiv Hypertensiv Problem Active e disorder e Disorder 05-07 00:00: 00 Congestive Congestive Problem Active heart Heart 05-07 failure Failure 00:00: 00 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 Inhibited libido Libido Insomnia Insomnia Problem Active 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 Gastroesoph Gastroesoph Problem Active ageal ageal reflux Reflux disease Disease Backache Backache Problem Active Ganglion Ganglion Problem Active and cyst of and Cyst of synovium, Synovium, tendon and Tendon and bursa Bursa Sleep apnea Sleep Apnea Problem Active Edema of Edema of Problem Active lower Lower extremity Extremity Raised Raised Problem Active prostate Prostate specific Specific antigen Antigen Onychomycos Onychomycos Problem Active is due to is Due to dermatophyt Dermatophyt e e Mixed Mixed Problem Active hyperlipide Hyperlipide ray ray Procedures Procedure Date / Time Performed Performing Clinician Mary e sacroiliac joint injection (PROC) 2020-09-18 00:00:00 injection, trigger point (PROC) 2020-09-18 00:00:00 pulse oximetry (PROC) 2020-08-28 00:00:00 sacroiliac joint injection (PROC) 2020-07-17 00:00:00 injection, trigger point (PROC) 2020-07-17 00:00:00 pulse oximetry (PROC) 2020-06-14 00:00:00 sacroiliac joint injection (PROC) 2020-06-14 00:00:00 injection, trigger point (PROC) 2020-06-14 00:00:00 sacroiliac joint injection (PROC) 2020-04-26 00:00:00 injection, trigger point (PROC) 2020-04-26 00:00:00 epidural steroid injection, lumbar 2020-04-02 00:00:00 transforaminal (PROC) lumbar radiofrequency lesioning 2020-02-09 00:00:00 (PROC) RADIOLOGIC EXAM ELBOW 3 VIEWS 2018-08-06 00:00:00 rotator cuff colonoscopy Shoulder Surgery Results Test Description Test Time Test Comments Text Results Atomic Results Result Comments Creatinine 2020-07-05 15:30:00 Test Item Value Reference Range Comments Creatinine (test code = Creatinine) 2.6600 mg/dL 0.7600-1.270 0 Cr Clearance (Est) (test code = Cr Clearance 33.6300 85. 0000-125.0000 (Est)) Glucose (test code = Glucose) 216.0000 mg/dL 65.0000-99.0000 BUN (test code = BUN) 45.0000 mg/dL 8.0000-27.0000 eGFR Ekf-Ckngeae-Swpwlhii (test code = eGFR 23.0000 Srd-Nawdbst-Haqsikda) eGFR -Azerbaijani (test code = eGFR 27.0000 -Azerbaijani) BUN/Creat Ratio (test code = BUN/Creat Ratio) 17.0000 10 .0000-24.0000 Sodium (test code = Sodium) 142.0000 mmol/L 134.0000-144.0000 Potassium (test code = Potassium) 4.2000 mmol/L 3.5000-5.2000 Chloride (test code = Chloride) 100.0000 mmol/L 96.0000-106.0000 CO2 (test code = CO2) 25.0000 mmol/L 20.0000-29.0000 Calcium (test code = Calcium) 10.3000 mg/dL 8.6000-10.2000 Protein, Total (test code = Protein, Total) 6.7000 g/dL 6.00 00-8.5000 Albumin (test code = Albumin) 4.0000 g/dL 3.7000-4.7000 Globulin (test code = Globulin) 2.7000 g/dL 1.5000-4.5000 A/G Ratio (test code = A/G Ratio) 1.5000 1.2000-2.2000 Bilirubin, Total (test code = Bilirubin, Total) 0.3000 mg/dL 0.0000-1.2000 Alkaline Phosphatase (test code = Alkaline 77.0000 39.00 00-117.0000 Phosphatase) AST (SGOT) (test code = AST (SGOT)) 20.0000 0.0000-40.00 00 ALT (SGPT) (test code = ALT (SGPT)) 16.0000 0.0000-44.00 00 Vitamin D (25-Hydroxy) (test code = Vitamin D 52.1000 ng/mL 30 .0000-100.0000 (25-Hydroxy)) [id number] 15:30:00 Test Item Value Reference Range Comments PSA (test code = PSA) 11.1000 ng/mL 0.0000-4.0000 [id number] 13:15:00 Test Item Value Reference Range Comments WBC (test code = WBC) 7.2000 4.0000-10.0000 Lymphocytes % (test code = Lymphocytes %) 21.8000 % 22.400 0-43.6000 MID% (test code = MID%) 5.0000 % - Neutrophils % (test code = Neutrophils %) 73.2000 % 48.900 0-69.9000 Lymphocytes (test code = Lymphocytes) 1.5000 1.2000-3.2 000 MID (test code = MID) 0.4000 0.1000-1.1000 Neutrophils (test code = Neutrophils) 5.3000 1.5000-6.7 000 RBC (test code = RBC) 4.5000 3.7000-4.9000 HGB (test code = HGB) 10.8000 g/dL 11.1999-18.0000 HCT (test code = HCT) 33.9000 % 34.0000-44.0000 MCV (test code = MCV) 75.3000 fL 80.0000-94.0000 MCH (test code = MCH) 24.1000 pg 27.0000-34.0000 MCHC (test code = MCHC) 31.9000 g/dL 31.5000-36.0000 RDW (test code = RDW) 16.4000 11.0000-18.0000 PLT (test code = PLT) 162.0000 140.0000-440.0000 MPV (test code = MPV) 10.2000 fL 6.8000-10.6000 [id number] 13:15:00 Test Item Value Reference Range Comments RDW (test code = RDW) 16.4000 11.0000-18.0000 Neutrophils % (test code = Neutrophils %) 73.2000 % 48.900 0-69.9000 MID% (test code = MID%) 5.0000 % .1999- HCT (test code = HCT) 33.9000 % 34.0000-44.0000 Lymphocytes % (test code = Lymphocytes %) 21.8000 % 22.400 0-43.6000 MCH (test code = MCH) 24.1000 pg 27.0000-34.0000 MCV (test code = MCV) 75.3000 fL 80.0000-94.0000 MCHC (test code = MCHC) 31.9000 g/dL 31.5000-36.0000 MPV (test code = MPV) 10.2000 fL 6.8000-10.6000 HGB (test code = HGB) 10.8000 g/dL 11.1999-18.0000 Lymphocytes (test code = Lymphocytes) 1.5000 1.2000-3.2 000 MID (test code = MID) 0.4000 0.1000-1.1000 PLT (test code = PLT) 162.0000 140.0000-440.0000 WBC (test code = WBC) 7.2000 4.0000-10.0000 Neutrophils (test code = Neutrophils) 5.3000 1.5000-6.7 000 RBC (test code = RBC) 4.5000 3.7000-4.9000 SARS-CoV-2 RNA Resp Ql [id number] 00:00:00 Test Item Value Reference Range Comments SARS-CoV-2 RNA Resp Ql Not detected [facility] Case FLOR+probe (test code = ID: COVID [id number]) [id number] 13:31:00 Test Item Value Reference Range Comments RBC (test code = RBC) 4.4700 3.7000-4.9000 WBC (test code = WBC) 6.0000 4.0000-10.0000 PLT (test code = PLT) 208.0000 140.0000-440.0000 Neutrophils (test code = Neutrophils) 3.8000 1.5000-6.7 000 MID (test code = MID) 0.5000 0.1000-1.1000 Lymphocytes (test code = Lymphocytes) 1.7000 1.2000-3.2 000 HGB (test code = HGB) 10.5000 g/dL 11.1999-18.0000 MCHC (test code = MCHC) 30.2000 g/dL 31.5000-36.0000 MPV (test code = MPV) 11.0000 fL 6.8000-10.6000 MCV (test code = MCV) 77.6000 fL 80.0000-94.0000 MCH (test code = MCH) 23.5000 pg 27.0000-34.0000 Lymphocytes % (test code = Lymphocytes %) 29.4000 % 22.400 0-43.6000 HCT (test code = HCT) 34.7000 % 34.0000-44.0000 MID% (test code = MID%) 7.4000 % 1.2000-11.2000 Neutrophils % (test code = Neutrophils %) 63.2000 % 48.900 0-69.9000 RDW (test code = RDW) 15.7000 11.0000-18.0000 [id number] 13:31:00 Test Item Value Reference Range Comments WBC (test code = WBC) 6.0000 4.0000-10.0000 Lymphocytes % (test code = Lymphocytes %) 29.4000 % 22.400 0-43.6000 MID% (test code = MID%) 7.4000 % 1.2000-11.2000 Neutrophils % (test code = Neutrophils %) 63.2000 % 48.900 0-69.9000 Lymphocytes (test code = Lymphocytes) 1.7000 1.2000-3.2 000 MID (test code = MID) 0.5000 0.1000-1.1000 Neutrophils (test code = Neutrophils) 3.8000 1.5000-6.7 000 RBC (test code = RBC) 4.4700 3.7000-4.9000 HGB (test code = HGB) 10.5000 g/dL 11.2000-18.0000 HCT (test code = HCT) 34.7000 % 34.0000-44.0000 MCV (test code = MCV) 77.6000 fL 80.0000-94.0000 MCH (test code = MCH) 23.5000 pg 27.0000-34.0000 MCHC (test code = MCHC) 30.2000 g/dL 31.5000-36.0000 RDW (test code = RDW) 15.7000 11.0000-18.0000 PLT (test code = PLT) 208.0000 140.0000-440.0000 MPV (test code = MPV) 11.0000 fL 6.8000-10.6000 [id number] 11:46:00 Test Item Value Reference Range Comments RDW (test code = RDW) 15.5000 11.0000-18.0000 MID% (test code = MID%) 7.5000 % 1.2000-11.1999 HCT (test code = HCT) 35.7000 % 34.0000-44.0000 Neutrophils % (test code = Neutrophils %) 60.3000 % 48.900 0-69.9000 MCH (test code = MCH) 24.3000 pg 27.0000-34.0000 MPV (test code = MPV) 9.5000 fL 6.8000-10.6000 MCV (test code = MCV) 76.6000 fL 80.0000-94.0000 HGB (test code = HGB) 11.3000 g/dL 11.2000-18.0000 Lymphocytes % (test code = Lymphocytes %) 32.2000 % 22.400 0-43.6000 MCHC (test code = MCHC) 31.8000 g/dL 31.5000-36.0000 MID (test code = MID) 0.6000 0.1000-1.1000 Lymphocytes (test code = Lymphocytes) 2.5000 1.2000-3.2 000 Neutrophils (test code = Neutrophils) 4.8000 1.5000-6.7 000 PLT (test code = PLT) 110.0000 140.0000-440.0000 WBC (test code = WBC) 7.9000 4.0000-10.0000 RBC (test code = RBC) 4.6600 3.7000-4.9000 [id number] 11:46:00 Test Item Value Reference Range Comments WBC (test code = WBC) 7.9000 4.0000-10.0000 Lymphocytes % (test code = Lymphocytes %) 32.2000 % 22.400 0-43.6000 MID% (test code = MID%) 7.5000 % 1.1999-11.1999 Neutrophils % (test code = Neutrophils %) 60.3000 % 48.900 0-69.9000 Lymphocytes (test code = Lymphocytes) 2.5000 1.2000-3.2 000 MID (test code = MID) 0.6000 0.1000-1.1000 Neutrophils (test code = Neutrophils) 4.8000 1.5000-6.7 000 RBC (test code = RBC) 4.6600 3.7000-4.9000 HGB (test code = HGB) 11.3000 g/dL 11.2000-18.0000 HCT (test code = HCT) 35.7000 % 34.0000-44.0000 MCV (test code = MCV) 76.6000 fL 80.0000-94.0000 MCH (test code = MCH) 24.3000 pg 27.0000-34.0000 MCHC (test code = MCHC) 31.8000 g/dL 31.5000-36.0000 RDW (test code = RDW) 15.5000 11.0000-18.0000 PLT (test code = PLT) 110.0000 140.0000-440.0000 MPV (test code = MPV) 9.5000 fL 6.8000-10.6000 Iron, [id number] 12:12:00 Test Item Value Reference Range Comments Iron, Total (test code = Iron, Total) 43.0000 38.0000-16 9.0000 TIBC (test code = TIBC) 257.0000 250.0000-450.0000 UIBC (test code = UIBC) 214.0000 111.0000-343.0000 Globulin (test code = Globulin) 2.6000 g/dL 1.5000-4.5000 Albumin (test code = Albumin) 4.1000 g/dL 3.7000-4.7000 Protein, Total (test code = Protein, 6.7000 g/dL 6.0000-8.50 00 Total) Calcium (test code = Calcium) 9.6000 mg/dL 8.6000-10.2000 Bilirubin, Total (test code = Bilirubin, 0.2000 mg/dL 0.0000- 1.2000 Total) BUN (test code = BUN) 27.0000 mg/dL 8.0000-27.0000 Glucose (test code = Glucose) 247.0000 mg/dL 65.0000-99.0000 Creatinine (test code = Creatinine) 1.9800 mg/dL 0.7600-1.270 0 Vitamin B12 (test code = Vitamin B12) 1435.0000 pg/mL 232.0000-1 245.0000 % Iron Saturation (test code = % Iron 17.0000 % 15.0000-55 .0000 Saturation) Alkaline Phosphatase (test code = 78.0000 39.0000-117.00 00 Alkaline Phosphatase) ALT (SGPT) (test code = ALT (SGPT)) 17.0000 0.0000-44.00 00 AST (SGOT) (test code = AST (SGOT)) 15.0000 0.0000-40.00 00 Chloride (test code = Chloride) 99.0000 mmol/L 96.0000-106.0000 CO2 (test code = CO2) 25.0000 mmol/L 20.0000-29.0000 Potassium (test code = Potassium) 4.3000 mmol/L 3.5000-5.2000 Sodium (test code = Sodium) 142.0000 mmol/L 134.0000-144.0000 Cr Clearance (Est) (test code = Cr 46.0600 85.0000-125.0 000 Clearance (Est)) Ferritin (test code = Ferritin) 233.0000 ng/mL 30.0000-400.0000 Folate (test code = Folate) 18.4000 ng/mL Vitamin D (25-Hydroxy) (test code = 28.7000 ng/mL 30.0000-100. 0000 Vitamin D (25-Hydroxy)) A/G Ratio (test code = A/G Ratio) 1.6000 1.2000-2.2000 BUN/Creat Ratio (test code = BUN/Creat 14.0000 10.0000-2 4.0000 Ratio) eGFR -Azerbaijani (test code = eGFR 38.0000 -Azerbaijani) eGFR Mka-Zczjips-Wqqnjhxg (test code = 33.0000 eGFR Qzt-Pabwsyb-Xllvfaji) [id number] 12:12:00 Test Item Value Reference Range Comments PSA (test code = PSA) 8.9000 ng/mL 0.0000-4.0000 [id number] 12:12:00 Test Item Value Reference Range Comments Creatinine (test code = Creatinine) 1.9800 mg/dL 0.7600-1.270 0 Cr Clearance (Est) (test code = Cr 46.0600 85.0000-125.0 000 Clearance (Est)) Glucose (test code = Glucose) 247.0000 mg/dL 65.0000-99.0000 BUN (test code = BUN) 27.0000 mg/dL 8.0000-27.0000 eGFR Shp-Stecixb-Kiucvtpp (test code = 33.0000 eGFR Ocz-Wlxphln-Urgimbqe) eGFR -Azerbaijani (test code = eGFR 38.0000 -Azerbaijani) BUN/Creat Ratio (test code = BUN/Creat 14.0000 10.0000-2 4.0000 Ratio) Sodium (test code = Sodium) 142.0000 mmol/L 134.0000-144.0000 Potassium (test code = Potassium) 4.3000 mmol/L 3.5000-5.2000 Chloride (test code = Chloride) 99.0000 mmol/L 96.0000-106.0000 CO2 (test code = CO2) 25.0000 mmol/L 20.0000-29.0000 Calcium (test code = Calcium) 9.6000 mg/dL 8.6000-10.2000 Protein, Total (test code = Protein, 6.7000 g/dL 6.0000-8.50 00 Total) Albumin (test code = Albumin) 4.1000 g/dL 3.7000-4.7000 Globulin (test code = Globulin) 2.6000 g/dL 1.5000-4.5000 A/G Ratio (test code = A/G Ratio) 1.6000 1.2000-2.1999 Bilirubin, Total (test code = Bilirubin, 0.2000 mg/dL 0.0000- 1.1999 Total) Alkaline Phosphatase (test code = 78.0000 39.0000-117.00 00 Alkaline Phosphatase) AST (SGOT) (test code = AST (SGOT)) 15.0000 0.0000-40.00 00 ALT (SGPT) (test code = ALT (SGPT)) 17.0000 0.0000-44.00 00 Iron, Total (test code = Iron, Total) 43.0000 38.0000-16 9.0000 TIBC (test code = TIBC) 257.0000 250.0000-450.0000 UIBC (test code = UIBC) 214.0000 111.0000-343.0000 % Iron Saturation (test code = % Iron 17.0000 % 15.0000-55 .0000 Saturation) Vitamin B12 (test code = Vitamin B12) 1435.0000 pg/mL 232.0000-1 245.0000 Folate (test code = Folate) 18.4000 ng/mL Vitamin D (25-Hydroxy) (test code = 28.7000 ng/mL 30.0000-100. 0000 Vitamin D (25-Hydroxy)) Ferritin (test code = Ferritin) 233.0000 ng/mL 30.0000-400.0000 [id number] 15:55:00 Test Item Value Reference Range Comments RDW (test code = RDW) 15.5000 11.0000-18.0000 Neutrophils % (test code = Neutrophils %) 62.5000 % 48.900 0-69.9000 MID% (test code = MID%) 6.7000 % .1999- HCT (test code = HCT) 33.9000 % 34.0000-44.0000 Lymphocytes % (test code = Lymphocytes %) 30.8000 % 22.400 0-43.6000 MCH (test code = MCH) 24.7000 pg 27.0000-34.0000 MPV (test code = MPV) 10.0000 fL 6.8000-10.6000 MCV (test code = MCV) 75.8000 fL 80.0000-94.0000 MCHC (test code = MCHC) 32.6000 g/dL 31.5000-36.0000 HGB (test code = HGB) 11.0000 g/dL .1999-18.0000 Lymphocytes (test code = Lymphocytes) 2.1000 1.2000-3.2 000 MID (test code = MID) 0.5000 0.1000-1.1000 PLT (test code = PLT) 171.0000 140.0000-440.0000 Neutrophils (test code = Neutrophils) 4.4000 1.5000-6.7 000 WBC (test code = WBC) 7.0000 4.0000-10.0000 RBC (test code = RBC) 4.4700 3.7000-4.9000 [id number] 15:55:00 Test Item Value Reference Range Comments WBC (test code = WBC) 7.0000 4.0000-10.0000 Lymphocytes % (test code = Lymphocytes %) 30.8000 % 22.400 0-43.6000 MID% (test code = MID%) 6.7000 % .1999- Neutrophils % (test code = Neutrophils %) 62.5000 % 48.900 0-69.9000 Lymphocytes (test code = Lymphocytes) 2.1000 1.2000-3.2 000 MID (test code = MID) 0.5000 0.1000-1.1000 Neutrophils (test code = Neutrophils) 4.4000 1.5000-6.7 000 RBC (test code = RBC) 4.4700 3.7000-4.9000 HGB (test code = HGB) 11.0000 g/dL .1999-18.0000 HCT (test code = HCT) 33.9000 % 34.0000-44.0000 MCV (test code = MCV) 75.8000 fL 80.0000-94.0000 MCH (test code = MCH) 24.7000 pg 27.0000-34.0000 MCHC (test code = MCHC) 32.6000 g/dL 31.5000-36.0000 RDW (test code = RDW) 15.5000 11.0000-18.0000 PLT (test code = PLT) 171.0000 140.0000-440.0000 MPV (test code = MPV) 10.0000 fL [id number] Assessments Condition Name Status Diagnosis Date Treating Clinici an Chronic pain syndrome Active 2020-09-18 15:22:54 Paresis of lower extremity Active 2020-09-18 15:22:54 Lumbar radiculopathy Active 2020-09-18 15:22:54 Degeneration of lumbar intervertebral Active 2020-09-18 15:22:54 disc Lumbar facet joint pain Active 2020-09-18 15:22:54 Lumbosacral spondylosis without Active 2020-09-18 15:22 :54 myelopathy Myofascial pain Active 2020-09-18 15:22:54 Sacroiliac joint pain Active 2020-09-18 15:22:54 Low back pain Active 2020-09-18 15:11:17 Chronic kidney disease stage 4 Active 2020-08-27 12:36: 08 Cardiomegaly Active 2020-08-27 12:36:09 Coronary atherosclerosis Active 2020-08-27 12:36:13 Hypertensive heart AND chronic kidney Active 2020-08-27 12:36:22 disease with congestive heart failure Pain in right foot Active 2020-08-28 10:55:39 Compression of right median nerve at Active 2020-08-28 11:00:15 elbow 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 Active 2020-08-08 2 11:11:00 mellitus Chronic pain syndrome Active 2020-07-17 08:36:34 Low back pain Active 2020-07-17 08:36:34 Paresis of lower extremity Active 2020-07-17 08:36:34 Lumbar radiculopathy Active 2020-07-17 08:36:34 Degeneration of lumbar intervertebral Active 2020-07-17 08:36:34 disc Lumbar facet joint pain Active 2020-07-17 08:36:34 Lumbosacral spondylosis without Active 2020-07-17 08:36 :34 myelopathy Myofascial pain Active 2020-07-17 08:36:34 Sacroiliac joint pain Active 2020-07-17 08:36:34 Hypertensive heart AND chronic kidney Active 2020-06-14 08:31:42 disease with congestive heart failure Coronary atherosclerosis Active 2020-06-14 08:47:54 Congestive heart failure Active 2020-06-14 08:47:55 Diabetes mellitus Active 2020-06-14 08:47:51 Chronic kidney disease stage 4 Active 2020-06-14 08:47: 57 Neuropathy Active 2020-06-14 08:48:04 Chronic pain syndrome Active 2020-06-14 11:01:50 Low back pain Active 2020-06-14 11:01:50 Paresis of lower extremity Active 2020-06-14 11:01:50 Lumbar radiculopathy Active 2020-06-14 11:01:50 Degeneration of lumbar intervertebral Active 2020-06-14 11:01:50 disc Lumbar facet joint pain Active 2020-06-14 11:01:50 Lumbosacral spondylosis without Active 2020-06-14 11:01 :50 myelopathy Myofascial pain Active 2020-06-14 11:01:50 Sacroiliac joint pain Active 2020-06-14 11:01:50 Chronic pain syndrome Active 2020-04-26 10:38:04 Low back pain Active 2020-04-26 10:38:04 Paresis of lower extremity Active 2020-04-26 10:38:04 Lumbar radiculopathy Active 2020-04-26 10:38:04 Degeneration of lumbar intervertebral Active 2020-04-26 10:38:04 disc Lumbar facet joint pain Active 2020-04-26 10:38:04 Lumbosacral spondylosis without Active 2020-04-26 10:38 :04 myelopathy Myofascial pain Active 2020-04-26 10:38:17 Sacroiliac joint pain Active 2020-04-26 10:43:52 Chronic pain syndrome Active 2020-04-20 10:08:19 Low back pain Active 2020-04-02 13:50:00 Paresis of lower extremity Active 2020-04-02 14:30:43 Lumbar radiculopathy Active 2020-04-02 14:31:32 Degeneration of lumbar intervertebral Active 2020-04-20 10:08:19 disc Lumbar facet joint pain Active 2020-04-20 10:08:19 Lumbosacral spondylosis without Active 2020-04-20 10:08 :19 myelopathy Chronic pain syndrome Active 2020-03-01 14:31:54 Low back pain Active 2020-03-01 14:31:54 Degeneration of lumbar intervertebral Active 2020-03-01 14:31:54 disc Lumbar radiculopathy Active 2020-03-01 14:31:54 Prolapsed lumbar intervertebral disc Active 2020-03-01 14:31:54 with sciatica Medication monitoring Active 2020-03-01 14:31:54 Spinal stenosis of lumbar region Active 2020-03-01 14:3 1:54 Lumbar facet joint pain Active 2020-03-01 14:31:54 Lumbosacral spondylosis without Active 2020-03-01 14:31 :54 myelopathy Low back pain Active 2020-02-09 11:04:23 Chronic pain syndrome Active 2020-02-09 11:04:23 Degeneration of lumbar intervertebral Active 2020-02-09 11:04:23 disc Lumbar radiculopathy Active 2020-02-09 11:04:23 Prolapsed lumbar intervertebral disc Active 2020-02-09 11:04:23 with sciatica Medication monitoring Active 2020-02-09 11:04:23 Spinal stenosis of lumbar region Active 2020-02-09 11:0 4:23 Lumbar facet joint pain Active 2020-02-09 11:04:23 Lumbosacral spondylosis without Active 2020-02-09 11:04 :23 myelopathy Lumbosacral spondylosis without Active 2020-01-24 09:22 :01 myelopathy Low back pain Active 2020-01-24 09:22:01 Chronic pain syndrome Active 2020-01-24 09:22:01 Degeneration of lumbar intervertebral Active 2020-01-24 09:22:01 disc Lumbar radiculopathy Active 2020-01-24 09:22:01 Prolapsed lumbar intervertebral disc Active 2020-01-24 09:22:01 with sciatica Medication monitoring Active 2020-01-24 09:22:01 Spinal stenosis of lumbar region Active 2020-01-24 09:2 2:01 Lumbar facet joint pain Active 2020-01-24 09:22:01 Pain in elbow Active 2019-07-18 14:52:16 Bursitis of olecranon of right elbow Active 2019-07-18 17:36:34 Olecranon bursitis Active 2019-07-14 17:34:15 Low back pain Active 2019-03-22 09:55:01 Chronic pain syndrome Active 2019-03-22 10:01:28 Degeneration of lumbar intervertebral Active 2019-03-22 10:01:28 disc Lumbar radiculopathy Active 2019-03-22 10:01:28 Prolapsed lumbar intervertebral disc Active 2019-03-22 10:01:28 with sciatica Medication monitoring Active 2019-03-22 10:01:28 Spinal stenosis of lumbar region Active 2019-03-22 10:0 1:28 Lumbar facet joint pain Active 2019-03-22 10:01:28 Lumbosacral spondylosis without Active 2019-03-22 10:01 :28 myelopathy Pain of left elbow joint Active 2019-01-19 13:16:47 Low back pain Active 2019-01-04 09:24:45 Chronic pain syndrome Active 2019-01-04 09:55:24 Degeneration of lumbar intervertebral Active 2019-01-04 09:55:24 disc Lumbar radiculopathy Active 2019-01-04 09:55:24 Prolapsed lumbar intervertebral disc Active 2019-01-04 09:55:24 with sciatica Medication monitoring Active 2019-01-04 09:55:24 Spinal stenosis of lumbar region Active 2019-01-04 09:5 5:24 Lumbar facet joint pain Active 2019-01-04 09:55:24 Lumbosacral spondylosis without Active 2019-01-04 09:55 :24 myelopathy Pain of left elbow joint Active 2018-12-28 11:26:21 Olecranon bursitis Active 2018-12-28 12:01:58 Neuropathy Active 2018-12-28 12:02:14 Low back pain Active 2018-10-12 10:04:48 Chronic pain syndrome Active 2018-10-12 10:04:48 Degeneration of lumbar intervertebral Active 2018-10-12 10:04:48 disc Lumbar radiculopathy Active 2018-10-12 10:04:48 Prolapsed lumbar intervertebral disc Active 2018-10-12 10:04:48 with sciatica Medication monitoring Active 2018-10-12 10:04:48 Spinal stenosis of lumbar region Active 2018-10-12 10:0 4:48 Lumbar facet joint pain Active 2018-10-12 10:04:48 Lumbosacral spondylosis without Active 2018-10-12 10:04 :48 myelopathy Low back pain Active 2018-08-09 09:12:25 Chronic pain syndrome Active 2018-08-09 09:37:51 Degeneration of lumbar intervertebral Active 2018-08-09 09:37:51 disc Lumbar radiculopathy Active 2018-08-09 09:37:51 Prolapsed lumbar intervertebral disc Active 2018-08-09 09:37:51 with sciatica Medication monitoring Active 2018-08-09 09:37:51 Spinal stenosis of lumbar region Active 2018-08-09 09:3 7:51 Lumbar facet joint pain Active 2018-08-09 09:37:51 Lumbosacral spondylosis without Active 2018-08-09 09:37 :51 myelopathy Pain of left elbow joint Active 2018-08-06 09:29:22 Olecranon bursitis Active 2018-08-06 23:07:41 Low back pain Active 2018-07-12 14:42:14 Chronic pain syndrome Active 2018-07-12 14:42:14 Degeneration of lumbar intervertebral Active 2018-07-12 14:42:14 disc Lumbar radiculopathy Active 2018-07-12 14:42:14 Prolapsed lumbar intervertebral disc Active 2018-07-12 14:42:14 with sciatica Medication monitoring Active 2018-07-12 14:42:14 Spinal stenosis of lumbar region Active 2018-07-12 14:4 2:14 Lumbar facet joint pain Active 2018-07-12 14:42:14 Lumbosacral spondylosis without Active 2018-07-12 14:42 :14 myelopathy Encounters Start End Encounter Admission Attending Care Care Encounter Date/Time Date/Time Type Type Clinicians Facility Department ID 2020-09-18 2020-09-18 Josias Jackson [id number] 00:00:00 00:00:00 MD Selene: Surgical Surgical [address]112 [address] [facility] [address], [place] [address], Ph. 2020-08-28 2020-08-28 Johann [facility] [id number] 00:00:00 00:00:00 Cyril Ceja & Immediate & 222 MD: [address] [facility], [facility] [address], [place] [address], Ph. 2020-07-17 2020-07-17 Josias Jackson [id number] 20 00:00:00 00:00:00 MD Selene: Surgical Surgical 11[address] [facility] [address], [place] [address], Ph. 2020-07-06 2020-07-06 [facility] n [id number] 00:00:00 00:00:00 [facility] Oncology [facility] [place] 2020-07-05 2020-07-05 Eugenio [facility] 2 [id number] 00:00:00 00:00:00 Deepthi [facility] Medical Oncology Oncology [facility] [place] 2020-06-14 2020-06-14 Marisabel [facility] [id number] 00:00:00 00:00:00 Woljgyk, Immediate & Immediate & 008 ICU CLERK: [address] [facility] [address], [place] [address], Ph. 2020-06-14 2020-06-14 Josias Jackson [id number] 20 00:00:00 00:00:00 MD Selene: Surgical Surgical [address], [place] [address], Ph. 2020-05-12 2020-05-12 Outpatient [facility] n [id number] 00:00:00 00:00:00 [facility] Medical Oncology Oncology [facility] 2020-04-26 2020-04-26 Josias Cooleyt [id number] 20 00:00:00 00:00:00 MD Selene: Surgical Surgical 0820 [address] [facility] [address], [place] [address], Ph. 2020-04-04 2020-04-04 Dr. Clovis Brannon, [facility] n [id number] 00:00:00 00:00:00 Ankita Luciano [facility] Medical Oncology Oncology [facility] 2020-04-02 2020-04-02 Raissa Jackson [id number] 20 00:00:00 00:00:00 Brittany, Surgical Surgical 07 FNPC: [address] [facility] [address], [place] [address], Ph. 2020-03-01 2020-03-01 Josias Avilaeret [id number] 20 00:00:00 00:00:00 MD Selene: Surgical Surgical [address], [place] [address], Ph. 2020-02-28 2020-02-28 Outpatient [facility] n [id number] 00:00:00 00:00:00 n Medical Medical Oncology Oncology Center Center 2020-02-23 2020-02-23 Outpatient [facility] n [id number] 00:00:00 00:00:00 Medical Medical Oncology Oncology Center Center 2020-02-09 2020-02-09 Josias Avilaeret [id number] 20 00:00:00 00:00:00 MD Selene: Surgical Surgical 0604 [address] [facility] [employer] [facility] [address], [place] [address], Ph. 2020-01-24 2020-01-24 Josias Cooleyt [place] [id number] 20 00:00:00 00:00:00 MD Selene: Surgical Surgical 0519 [address] [facility] [employer] [facility], [address], [place] [address], Ph. 2020-01-12 2020-01-12 Outpatient Asaad, [facility] n [id number] 00:00:00 00:00:00 [facility] Medical Medical Oncology Oncology [facility] [place] 2019-11-03 2019-11-03 Outpatient Asaad, [facility] n [id number] 00:00:00 00:00:00 [facility] Medical Medical Oncology Oncology Center Center 2019-10-20 2019-10-20 Outpatient [facility] n [id number] 00:00:00 00:00:00 Medical Medical Oncology Oncology Center Center 2019-10-19 2019-10-19 Eugenio, Asaad, [facility] 2 [id number] 00:00:00 00:00:00 Deepthi Ankita n Medical Medical Oncology [facility]cology [facility] [place] 2019-09-19 2019-09-19 Outpatient [facility] n [id number] 00:00:00 00:00:00 Medical Medical Oncology [facility]cology [facility] [place] 2019-09-16 2019-09-16 Outpatient [facility] n [id number] 00:00:00 00:00:00 [facility] Medical Oncology Oncology [facility] 2019-09-14 2019-09-14 Outpatient [facility] n [id number] 00:00:00 00:00:00 [facility] Oncology Oncology [facility] 2019-07-18 2019-07-18 Cas Alemaneret Manuel [id number] 00:00:00 00:00:00 Mae Surgical Surgical 1111 DO: [address] [employer], [address], [place] [address], Ph. 2019-07-13 2019-07-13 Everton Manuel Jackson [id number] 19 00:00:00 00:00:00 Ruiz Surgical Surgical 1106 MD Sarah: [facility] [employer], [address], [place] [address], Ph. 2019-04-20 2019-04-20 Outpatient [facility] n [id number] 00:00:00 00:00:00 [facility] Oncology Oncology [facility] 2019-03-22 2019-03-22 Josiaswicho Avilaeret [id number] 19 00:00:00 00:00:00 MD Selene: Surgical Surgical 0716 [address] [employer], [address], [place] [address], Ph. 2019-01-19 2019-01-19 Everton Cooleyt [id number] 19 00:00:00 00:00:00 [facility] Surgical Surgical 0515 MD Sarah: [facility] [address] [employer], [address], [place] [address], Ph. 2019-01-04 2019-01-04 Josias Cooleyt [id number] 19 00:00:00 00:00:00 MD Selene: Surgical Surgical 0430 [address] [employer], [address], [place] [address], Ph. 2018-12-28 2018-12-28 Everton Avilaeret [id number] 19 00:00:00 00:00:00 [facility] Surgical Surgical 0423 MD Sarah: [facility] [address] [facility], [address], [place] [address], Ph. 2018-10-12 2018-10-12 Josias Manuel Avilaeret [id number] 19 00:00:00 00:00:00 MD Selene: Surgical Surgical 0205 [address] [facility], [address], [place] [address], Ph. 2018-08-09 2018-08-09 Josiaswicho Avilaeret [id number] 18 00:00:00 00:00:00 MD Selene: Surgical Surgical 1203 [address] [facility], [address], [place] [address], Ph. 2018-08-06 2018-08-06 Cas Fisher [facility] [place] [id number] 00:00:00 00:00:00 Mae Surgical Surgical 1130 DO: [address] [facility], [address], [place] [address], Ph. [phone] 2018-07-12 2018-07-12 Josias Avilaeret [id number] 18 00:00:00 00:00:00 MD Selene: Surgical Surgical 1105 2[address] [facility], [address], [place] [address], Ph. Immunizations Ordered Immunization Filled Immunization Date Status Commen ts Refusal Name Name Reason influenza, 2019-06-07 Completed injectable, 00:00:00 quadrivalent influenza, 2019-06-06 Completed injectable, 00:00:00 quadrivalent tetanus toxoid, 2019-04-15 Completed unspecified 00:00:00 formulation pneumococcal 2018-07-21 Completed polysaccharide PPV23 00:00:00 influenza, 2018-07-14 Completed injectable, 00:00:00 quadrivalent Pneumococcal 2015-05-22 Completed Conjugate, 00:00:00 unspecified formulation zoster live Unknown Completed Plan of Treatment Planned Activity Planned Date Details Comments Future Appointment 2020-12-13 08:00:00 Marisabel Agarwal, [address]; [facility], [place] [address] Future Appointment 2020-12-13 00:00:00 Marisabel Agarwal, [address]; [facility], [place] [address] Future Appointment 2020-10-29 09:40:00 Marisabel Agarwal, [address]; [facility], [place] [address] Future Appointment 2020-10-18 13:00:00 Josias Morton, [address]; , [place] [address] Future Appointment 2020-10-11 14:00:00 Justice Donahue, [address] [facility] [address]; , [place] [address] Social History Smoking Status Start Date Stop Date Never 2020-07-05 00:00:00 Social History Observation Description Sex Male Vital Signs Vital Name Observation Time Observation Value Comments BP Diastolic 2020-09-18 00:00:00 63 mm[Hg] Height 2020-09-18 00:00:00 71 [in_i] BP Systolic 2020-09-18 00:00:00 85 mm[Hg] BP Diastolic 2020-08-28 00:00:00 89 mm[Hg] Height 2020-08-28 00:00:00 71 [in_i] BMI (Body Mass Index) 2020-08-28 00:00:00 28 kg/m2 BP Systolic 2020-08-28 00:00:00 137 mm[Hg] Body Weight 2020-08-28 00:00:00 201 [lb_av] BP Diastolic 2020-07-17 00:00:00 60 mm[Hg] Height 2020-07-17 00:00:00 71 [in_i] BP Systolic 2020-07-17 00:00:00 103 mm[Hg] BP Diastolic 2020-06-14 00:00:00 69 mm[Hg] Height 2020-06-14 00:00:00 71 [in_i] BMI (Body Mass Index) 2020-06-14 00:00:00 28.5 kg/m2 BP Systolic 2020-06-14 00:00:00 130 mm[Hg] Body Weight 2020-06-14 00:00:00 204 [lb_av] BP Diastolic 2020-06-14 00:00:00 73 mm[Hg] Height 2020-06-14 00:00:00 71 [in_i] BP Systolic 2020-06-14 00:00:00 113 mm[Hg] Height 2020-04-26 00:00:00 71 [in_i] BP Systolic 2020-04-26 00:00:00 113 mm[Hg] BP Diastolic 2020-04-26 00:00:00 70 mm[Hg] Height 2020-04-02 00:00:00 71 [in_i] BMI (Body Mass Index) 2020-04-02 00:00:00 27.9 kg/m2 Body Weight 2020-04-02 00:00:00 200 [lb_av] BP Diastolic 2020-03-01 00:00:00 82 mm[Hg] Height 2020-03-01 00:00:00 71 [in_i] BP Systolic 2020-03-01 00:00:00 129 mm[Hg] BP Diastolic 2020-02-09 00:00:00 62 mm[Hg] Height 2020-02-09 00:00:00 71 [in_i] BP Systolic 2020-02-09 00:00:00 100 mm[Hg] Height 2020-01-24 00:00:00 71 [in_i] BP Diastolic 2019-07-18 00:00:00 71 mm[Hg] Height 2019-07-18 00:00:00 71 [in_i] BMI (Body Mass Index) 2019-07-18 00:00:00 27.9 kg/m2 BP Systolic 2019-07-18 00:00:00 118 mm[Hg] Body Weight 2019-07-18 00:00:00 200 [lb_av] BP Diastolic 2019-07-13 00:00:00 76 mm[Hg] Height 2019-07-13 00:00:00 71 [in_i] BMI (Body Mass Index) 2019-07-13 00:00:00 27.9 kg/m2 BP Systolic 2019-07-13 00:00:00 122 mm[Hg] Body Weight 2019-07-13 00:00:00 200 [lb_av] BP Diastolic 2019-03-22 00:00:00 63 mm[Hg] Height 2019-03-22 00:00:00 71 [in_i] BP Systolic 2019-03-22 00:00:00 102 mm[Hg] BP Diastolic 2019-01-04 00:00:00 85 mm[Hg] Height 2019-01-04 00:00:00 71 [in_i] BP Systolic 2019-01-04 00:00:00 150 mm[Hg] BP Diastolic 2019-01-19 00:00:00 65 mm[Hg] Height 2019-01-19 00:00:00 71 [in_i] BMI (Body Mass Index) 2019-01-19 00:00:00 27.9 kg/m2 BP Systolic 2019-01-19 00:00:00 100 mm[Hg] Body Weight 2019-01-19 00:00:00 200 [lb_av] BP Diastolic 2019-01-04 00:00:00 85 mm[Hg] Height 2019-01-04 00:00:00 71 [in_i] BP Systolic 2019-01-04 00:00:00 150 mm[Hg] Height 2018-12-28 00:00:00 71 [in_i] BMI (Body Mass Index) 2018-12-28 00:00:00 27.9 kg/m2 Body Weight 2018-12-28 00:00:00 200 [lb_av] BP Diastolic 2018-10-12 00:00:00 103 mm[Hg] Height 2018-10-12 00:00:00 71 [in_i] BMI (Body Mass Index) 2018-10-12 00:00:00 27.9 kg/m2 BP Systolic 2018-10-12 00:00:00 170 mm[Hg] Body Weight 2018-10-12 00:00:00 200 [lb_av] BP Diastolic 2018-08-09 00:00:00 80 mm[Hg] Height 2018-08-09 00:00:00 71 [in_i] BMI (Body Mass Index) 2018-08-09 00:00:00 27.9 kg/m2 BP Systolic 2018-08-09 00:00:00 131 mm[Hg] Body Weight 2018-08-09 00:00:00 200 [lb_av] BP Diastolic 2018-08-06 00:00:00 63 mm[Hg] Height 2018-08-06 00:00:00 71 [in_i] BMI (Body Mass Index) 2018-08-06 00:00:00 27.6 kg/m2 BP Systolic 2018-08-06 00:00:00 116 mm[Hg] Body Weight 2018-08-06 00:00:00 198 [lb_av] BMI 2020-07-05 13:45:16 28.7000 BP jennings 2020-07-05 13:45:16 55.0000 mm[Hg] Bdy height 2020-07-05 13:45:16 71.0000 [in_i] SaO2% BldA PulseOx 2020-07-05 13:45:16 97.0000 % Heart rate 2020-07-05 13:45:16 91.0000 /min Resp rate 2020-07-05 13:45:16 16.0000 /min BP sys 2020-07-05 13:45:16 110.0000 mm[Hg] Body temperature 2020-07-05 13:45:16 97.4000 [degF] Weight 2020-07-05 13:45:16 205.8000 [lb_av] BMI 2020-04-04 13:55:06 27.8700 BP jennings 2020-04-04 13:55:06 62.0000 mm[Hg] Bdy height 2020-04-04 13:55:06 71.0000 [in_i] SaO2% BldA PulseOx 2020-04-04 13:55:06 98.0000 % Heart rate 2020-04-04 13:55:06 78.0000 /min Resp rate 2020-04-04 13:55:06 16.0000 /min BP sys 2020-04-04 13:55:06 108.0000 mm[Hg] Body temperature 2020-04-04 13:55:06 97.0000 [degF] Weight 2020-04-04 13:55:06 199.8000 [lb_av] BMI 2019-10-19 15:33:00 29.2600 BP jennings 2019-10-19 15:33:00 67.0000 mm[Hg] Bdy height 2019-10-19 15:33:00 71.0000 [in_i] Heart rate 2019-10-19 15:33:00 87.0000 /min Resp rate 2019-10-19 15:33:00 16.0000 /min BP sys 2019-10-19 15:33:00 124.0000 mm[Hg] Body temperature 2019-10-19 15:33:00 97.1000 [degF] Weight 2019-10-19 15:33:00 209.8000 [lb_av] Hospital Discharge Instructions 1. Chronic pain syndrome 2. Paresis of lower extremity 3. Lumbar radiculopathy 4. Degeneration of lumbar intervertebral disc 5. Lumbar facet joint pain 6. Lumbosacral spondylosis without myelopathy 7. Myofascial pain injection, trigger point (PROC) 8. Sacroiliac joint pain sacroiliac joint injection (PROC) 9. Low back pain lidocaine 5 % topical patch Discussion Note: None recorded. Patient educational handouts: No information available.1. Chronic kidney disease stage 4 medicines to avoid with kidney disease: care instructions pulse oximetry (PROC) 2. Cardiomegaly 3. Coronary atherosclerosis 4. Hypertensive heart AND chronic kidney disease with congestive heart failure 5. Pain in right foot Voltaren 1 % topical gel 6. Compression of right median nerve at elbow neurology referral 7. 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 Reviewed pertinent diagnoses at length including counseling and reassurance. Discussed r isks, potential side effects and benefits of current treatment plan and medications. All patient questions and concerns were addressed and answered. Patient verbalized understanding and agreement with treatment plans.1. Chronic pain syndrome 2. Low back pain 3. Paresis of lower extremity 4. Lumbar radiculopathy 5. Degeneration of lumbar intervertebral disc 6. Lumbar facet joint pain 7. Lumbosacral spondylosis without myelopathy 8. Myofascial pain injection, trigger point (PROC) - TPI 08/16/2020 9. Sacroiliac joint pain sacroiliac joint injection (PROC) - LT SIJ #1 08/16/2020 Discussion Note: None recorded. Patient educational handouts: No information available.1. Hypertensive heart AND chronic kidney disease with congestive heart failure pulse oximetry (PROC) 2. Coronary atherosclerosis 3. Congestive heart failure 4. Diabetes mellitus HbA1c (hemoglobin A1c), blood glucose, fingerstick, blood 5. Chronic kidney disease stage 4 6. Neuropathy neurology referral Discussion Note After performing a Medical Screening Examination, I estimate there is LOW risk for ACUTE CORONARY SYNDROME, RESPIRATORY FAILURE, SEPSIS OR MENINGITIS, thus I consider the discharge disposition reasonable. The patient and I have discussed the diagnosis and risks, and we agree with discharging home with close follow-up. We also discussed returning to the Office immediately if new or worsening symptoms occur. We have discussed the symptoms which are most concerning (e.g., changing or worsening pain, trouble swallowing or breathing, neck stiffness, fever) that necessitate immediate return. Patient educational handouts: No information available.1. Chronic pain syndrome 2. Low back pain 3. Paresis of lower extremity 4. Lumbar radiculopathy 5. Degeneration of lumbar intervertebral disc 6. Lumbar facet joint pain 7. Lumbosacral spondylosis withou t myelopathy 8. Myofascial pain injection, trigger point (PROC) - TPI 05/15/2020 9. Sacroiliac joint pain sacroiliac joint injection (PROC) - LT SIJ #1 05/15/2020 Discussion Note: None recorded. Patient educational handouts: No information available.1. Low back pain 2. Chronic pain syndrome 3. Degeneration of lumbar intervertebral disc 4. Lumbar radiculopathy 5. Prolapsed lumbar intervertebral disc with sciatica 6. Medication monitoring 7. Spinal stenosis of lumbar region 8. Lumbar facet joint pain 9. Lumbosacral spondylosis without myelopathy Discussion Note: None recorded. Patient educational handouts: No information available.1. Olecranon bursitis bursitis of the elbow: care instructions Discussion Note: None recorded.1. Low back pain 2. Chronic pain syndrome 3. Degeneration of lumbar intervertebral disc 4. Lumbar radiculopathy 5. Prolapsed lumbar intervertebral disc with sciatica 6. Medication monitoring 7. Spinal stenosis of lumbar region 8. Lumbar facet joint pain 9. Lumbosacral spondylosis without myelopathy Discussion Note: None recorded. Patient educational handouts: No information available.1. Pain of left elbow joint 2. Olecranon bursitis bursitis of the elbow: care instructions 3. Neuropathy neuropathic pain: care instructions Discussion Note: None recorded.1. Low back pain 2. Chronic pain syndrome Lyrica 75 mg capsule Lyrica 75 mg capsule lidocaine 5 % topical patch 3. Degeneration of lumbar intervertebral disc 4. Lumbar radiculopathy 5. Prolapsed lumbar intervertebral disc with sciatica 6. Medication monitoring drug screen, urine 7. Spinal stenosis of lumbar region 8. Lumbar facet joint pain 9. Lumbosacral spondylosis without myelopathy Discussion Note: None recorded. Patient educational handouts: No information available.
[2020-09-27] MEDS ORDERED: FUROSEMIDE INJ/PF 40 MG/4 ML SDV IV ONE (01:37)
[2020-09-27 04:07] LABS: APPEARANCE,URINE CLEAR; BILIRUBIN,URINE NEGATIVE (NEGATIVE); COLOR,URINE STRAW; GLUCOSE, URINE NEGATIVE (NEGATIVE); KETONES,URINE NEGATIVE (NEGATIVE); LEUKOCYTE ESTERASE,URINE NEGATIVE (NEGATIVE); NITRITE,URINE NEGATIVE (NEGATIVE); PROTEIN,URINE NEGATIVE (NEGATIVE); URINE SPECIFIC GRAVITY 1.009; UROBILINOGEN,URINE NEGATIVE mg/dL (<2.0)
[2020-09-27 04:20] VITALS: BP 102/84
--- NOTE | 2020-09-27 07:24 | EKG REPORT ---
SEVERITY:- ABNORMAL ECG - ATRIAL FIBRILLATION PAIRED VENTRICULAR PREMATURE COMPLEXES LEFT ANTERIOR FASCICULAR BLOCK BORDERLINE R WAVE PROGRESSION, ANTERIOR LEADS NONSPECIFIC T ABNORMALITIES, LATERAL LEADS BORDERLINE PROLONGED QT INTERVAL : Confirmed by: Alfie López MD 27-Sep-2020 07:23:02
== END 2020-09-27 04:30 | disposition home or self-care (01) ==
LOC: ER 21:44
DX: I13.0 Hypertensive heart and chronic kidney disease with heart failure and stage 1 through stage 4 chronic kidney disease, or unspecified chronic kidney disease (principal); E11.22 Type 2 diabetes mellitus with diabetic chronic kidney disease; N18.9 Chronic kidney disease, unspecified; D63.1 Anemia in chronic kidney disease; I50.22 Chronic systolic (congestive) heart failure; J44.9 Chronic obstructive pulmonary disease, unspecified; I48.11 Longstanding persistent atrial fibrillation; I49.3 Ventricular premature depolarization; I25.10 Atherosclerotic heart disease of native coronary artery without angina pectoris; I25.2 Old myocardial infarction; G47.30 Sleep apnea, unspecified; Z99.89 Dependence on other enabling machines and devices; Z79.01 Long term (current) use of anticoagulants; Z79.899 Other long term (current) drug therapy; Z88.6 Allergy status to analgesic agent
CPT/HCPCS: 93005; 99285; 96361; 96374; 36415; 82962; 83735; 85025; 80053; 81001; 84484; 83880; 71045; 93010; J1940; J7040

== ENCOUNTER 2020-09-28 12:01 | Emergency (ER) | payer MEDICARE, OTHER ==
[2020-09-28 12:54] LABS: HEMATOCRIT 27.6 % (37.9-51.0); HEMOGLOBIN 8.6 g/dL (13.5-17.0); MEAN CORPUSCULAR HEMOGLOBIN 24.4 pg (27.0-33.4); MEAN CORPUSCULAR HGB CONC 31.1 g/dL (32.0-36.0); MEAN CORPUSCULAR VOLUME 79 fl (80-97); PLATELET COUNT 153 10^3/uL (150-450); RED BLOOD COUNT 3.51 10^6/uL (4.35-5.55); RED CELL DISTRIBUTION WIDTH 15.9 % (11.5-14.0); WHITE BLOOD COUNT 6.2 10^3/uL (4.0-10.5)
--- NOTE | 2020-09-28 12:54 | RADIOLOGY REPORT (SQ) ---
EXAM DESCRIPTION: CHEST SINGLE VIEW IMAGES COMPLETED DATE/TIME: 09/28/2020 12:38 pm REASON FOR STUDY: shortness of breath COMPARISON: AP view of the chest from 09/26/2020. EXAM PARAMETERS: NUMBER OF VIEWS: One view. TECHNIQUE: An AP view of the chest was obtained. RADIATION DOSE: NA LIMITATIONS: None. FINDINGS: LUNGS AND PLEURA: Unchanged bilateral perihilar opacities. There is no pleural effusion o r pneumothorax. MEDIASTINUM AND HILAR STRUCTURES: No mediastinal or hilar contour abnormality. HEART AND VASCULAR STRUCTURES: The cardiac silhouette is enlarged. BONES: No acute findings. HARDWARE: ORIF hardware in the proximal right humerus. OTHER: No other finding. IMPRESSION: Unchanged appearance of the chest compared to the radiograph from 09/26/2020. TECHNICAL DOCUMENTATION: JOB ID: [id number] [employer]- All Rights Reserved Reading location - IP/workstation name: [email or web address]
[2020-09-28 13:10] LABS: ALBUMIN 3.4 g/dL (3.5-5.0); ALKALINE PHOSPHATASE 69 U/L (38-126); ASPARTATE AMINO TRANSFERASE 28 U/L (17-59); BILIRUBIN,DIRECT 0.3 mg/dL (0.0-0.4); BILIRUBIN,TOTAL 0.8 mg/dL (0.2-1.3); BLOOD UREA NITROGEN 39 mg/dL (7-20); CALCIUM 10.3 mg/dL (8.4-10.2); CARBON DIOXIDE 32 mmol/L (22-30); GLUCOSE 221 mg/dL (75-110); POTASSIUM 3.9 mmol/L (3.6-5.0); TOTAL PROTEIN 5.8 g/dL (6.3-8.2)
[2020-09-28] MEDS ORDERED: FUROSEMIDE INJ/PF 20 MG/2 ML SDV IV ONE (13:10)
[2020-09-28 13:19] LABS: ANION GAP 6 (5-19); CHLORIDE 101 mmol/L (98-107)
[2020-09-28 13:25] LABS: ABSOLUTE LYMPHOCYTES# (MANUAL) 1.6 10^3/uL (0.5-4.7); ABSOLUTE MONOCYTES # (MANUAL) 0.4 10^3/uL (0.1-1.4); ANISOCYTOSIS SLIGHT; BASOPHILS % (MANUAL) 0 % (0-2); EOSINOPHILS % (MANUAL) 4 % (0-6); HYPOCHROMASIA SLIGHT; LYMPHOCYTES % (MANUAL) 25 % (13-45); MONOCYTES % (MANUAL) 7 % (3-13); NUCLEATED RED BLOOD CELLS 3 /100 WBC (0); OVALOCYTES SLIGHT; PLATELET COMMENT ADEQUATE; POIKILOCYTOSIS SLIGHT; POLYCHROMASIA SLIGHT; SEGMENTED NEUTROPHILS % (MAN) 64 % (42-78); TOTAL CELLS COUNTED 100
[2020-09-28 13:32] LABS: TROPONIN I 0.016 ng/mL
[2020-09-28] MEDS ORDERED: RINGERS SOLUTION,LACTATED 250 ML IV PRN (15:40)
[2020-09-28] MEDS ORDERED: DIGOXIN INJ 0.5 MG/2 ML AMPULE IV ONE (17:00)
--- NOTE | 2020-09-28 18:56 | EKG REPORT ---
SEVERITY:- ABNORMAL ECG - ATRIAL FIBRILLATION, V-RATE 68-169 VENTRICULAR PREMATURE COMPLEX LEFT ANTERIOR FASCICULAR BLOCK CONSIDER ANTEROSEPTAL INFARCT NONSPECIFIC T ABNORMALITIES, LATERAL LEADS PROLONGED QT INTERVAL : Confirmed by: Alfie López MD 28-Sep-2020 18:55:24
--- NOTE | 2020-09-28 20:22 | ER Document Report ---
ED General - General Stated Complaint: SHORTNESS OF BREATH Time Seen by Provider: 09/28/20 12:39 Primary Care Provider: RUFINA LOWRY MD [Primary Care Provider] - Follow up as needed Mode of Arrival: Ambulatory Information source: Patient TRAVEL OUTSIDE OF THE [place] IN LAST 30 DAYS: No - HPI Notes: Patient with known chronic A. fib and congestive heart failure with possibly history of cardiomyopathy presents to the emergency department once again with shortness of breath in a paroxysmal fashion. He was seen 2 days ago. Work-up here was unremarkable and he was advised to see his manager scientific. He was going to do so today but had another episode of acute shortness of breath at home. He called his manager scientific who told him to come in here to the emergency department and he would come in and evaluate him. He denies any chest pain. He has trace swelling in his legs. He has gained about 10 pounds over the last 2 weeks. He thinks he is gained about 2 pounds in the last day. His blood pressure has intermittently been somewhat low. He is otherwise in his usual state of health. - Related Data Allergies/Adverse Reactions: pregabalin [From Lyrica] Allergy (Verified 09/28/20 12:31) promethazine [From Phenergan] Adverse Reaction (Intermediate, Verified 09/28/20 12:31) Dystonia Past Medical History - General Information source: Patient - Social History Smoking Status: Unknown if Ever Smoked Family History: Reviewed & Not Pertinent, DM, Hypertension - Medical History Medical History: Other Notes: Past medical history as documented in the electronic health record is reviewed. - Past Medical History Cardiac Medical History: Reports: Hx Atrial Fibrillation - Paroxysmal, Hx Congestive Heart Failure - Systolic; ejection fraction 2017 of approximately 20%., Hx Coronary Artery Disease, Hx Heart Attack - [place] December 2016, Hx Hypercholesterolemia, Hx Hypertension Denies: Hx DVT, Hx Pulmonary Embolism Pulmonary Medical History: Reports: Hx Bronchitis, Hx COPD - Nightly and as needed 2 L oxygen per nasal cannula, Hx Sleep Apnea - Nasal CPAP; pressure 10 Denies: Hx Asthma Neurological Medical History: Denies: Hx Seizures Endocrine Medical History: Reports: Hx Diabetes Mellitus Type 2. Denies: Hx Diabetes Mellitus Type 1, Hx Hyperthyroidism, Hx Hypothyroidism Renal/ Medical History: Reports: Hx Renal Insufficiency. Denies: Hx Peritoneal Dialysis GI Medical History: Reports: Hx Gastroesophageal Reflux Disease, Hx Colonoscopy, Hx Endoscopy. Denies: Hx Cirrhosis Musculoskeletal Medical History: Reports Hx Arthritis, Reports Hx Gout - Primarily affecting left ankle and foot, Reports Hx Musculoskeletal Deformity - Back pain years Psychiatric Medical History: Denies: Hx Depression Infectious Medical History: Denies: Hx C-Diff, Hx MRSA Past Surgical History: Reports: Hx Cardiac Surgery - DEFIB, pt states no. states it was portable, Hx Orthopedic Surgery - right rotator cuff. Denies: Hx Pacemaker - Immunizations Hx Diphtheria, Pertussis, Tetanus Vaccination: Yes Hx Pneumococcal Vaccination: 11/05/13 Review of Systems - Review of Systems Notes: All systems are reviewed and are negative or noncontributory except as noted in the present illness. Physical Exam - Vital signs Vitals: Resp BP Pulse Ox 10 L 102/69 99 09/28/20 12:11 09/28/20 12:11 09/28/20 12:11 - Notes Notes: This patient is a well-developed well-nourished male no acute distress. Vital signs and nursing chief complaint are reviewed. HEENT: Grossly normal to inspection. Neck: Supple no JVD no adenopathy. Chest: Normal configuration lungs have good air entry bilaterally with few bibasilar rales. Heart: Distant tones irregularly irregular rate and rhythm. Mildly tachycardic. Abdomen: Soft nontender no mass organomegaly rigidity or guarding. Extremities: Trace edema to the mid tibia bilaterally. Skin: Warm moist good turgor no rashes. Neuro: Alert and oriented x3. Cranial nerves are intact. No motor or sensory deficits noted. Course - Re-evaluation Re-evalutation: 09/28/20 20:23 Patient remained relatively stable throughout his stay. His manager scientific Dr. Lam came by and saw him. His impression was that the patient was both in A. fib with an uncontrolled ventricular rate and also was slightly intravascularly volume depleted. He recommended another small fluid bolus and ordered a dose of digoxin. 09/28 both of these were done over time. The patient tolerated them well and felt somewhat better. He was discharged home with plans to see Dr. Lam tomorrow in his office at 2 PM. 20:24 - Vital Signs Vital signs: Temp Pulse Resp BP Pulse Ox 29 H 91/78 L 93 09/28/20 19:01 09/28/20 19:16 09/28/20 19:16 - Laboratory Results Result Diagrams: 09/28/20 12:20 09/28/20 12:20 Laboratory Results Interpreted: 09/28/20 09/28/20 09/28/20 12:20 12:20 12:20 RBC 3.51 L Hgb 8.6 L Hct 27.6 L MCV 79 L MCH 24.4 L MCHC 31.1 L RDW 15.9 H Carbon Dioxide 32 H BUN 39 H Creatinine 2.87 H Est GFR ( Amer) 26 L Est GFR (MDRD) Non-Af 22 L Glucose 221 H Calcium 10.3 H NT-Pro-B Natriuret Pep 9610 H Total Protein 5.8 L Albumin 3.4 L Critical Laboratory Results Reviewed: No Critical Results - Radiology Results Radiology Results Interpreted: 09/28/20 20:23 Chest X-Ray 09/28/20 12:05 IMPRESSION: Unchanged appearance of the chest compared to the radiograph from 09/26/2020. Critical Radiology Results Reviewed: No Critical Results - EKG Interpretation by Me Rate: Tachycardia Rhythm: A.Fib Discharge - Discharge Clinical Impression: Hypotension due to hypovolemia Atrial fibrillation Qualifiers: Atrial fibrillation type: longstanding persistent Qualified Code(s): I48.11 - Longstanding persistent atrial fibrillation Condition: Stable Disposition: HOME, SELF-CARE Additional Instructions: Continue your current medications as prescribed. See your doctor tomorrow at 2:00 as you would he have arranged. Return if any other concerning symptoms develop. Referrals: RUFINA LOWRY MD [Primary Care Provider] - Follow up as needed
[2020-09-28 20:44] VITALS: BP 90/69
== END 2020-09-28 20:44 | disposition home or self-care (01) ==
LOC: ER 12:01
DX: E86.1 Hypovolemia (principal); I95.89 Other hypotension; I48.11 Longstanding persistent atrial fibrillation; R00.0 Tachycardia, unspecified; I11.0 Hypertensive heart disease with heart failure; I50.22 Chronic systolic (congestive) heart failure; E11.9 Type 2 diabetes mellitus without complications; I25.10 Atherosclerotic heart disease of native coronary artery without angina pectoris; I25.2 Old myocardial infarction; J44.9 Chronic obstructive pulmonary disease, unspecified; Z88.6 Allergy status to analgesic agent
CPT/HCPCS: 93005; 99285; 96361; 96374; 96375; 36415; 85025; 80053; 84484; 83880; 71045; 93010; J1160; J1940; J7120